=== PATIENT | male | born 1980 | race Hispanic/Latino ===

== ENCOUNTER 2019-01-17 15:14 | Emergency (ER) | payer OTHER, SELFPAY ==
--- OUTSIDE RECORDS SUMMARY | 2019-01-17 15:17 | XMS REPORT ---
:1980 [facility] Address [address] [place] [address] Care Team Providers Name Role Phone Unavailable Unavailable Unavailable Payers Payer Name Policy Type Policy Number Effective Date Expiration Date Problems This patient has no known problems. Allergies, Adverse Reactions, Alerts Allergy Name Allergy Status Severity Reaction(s) Onset Inactive Treating Comments Type Date Date Clinician No Allergy DA Active U 2018-11 Available 00:00:0 0 vancomycin DA Active SV 2018-11 00:00:0 0 Medications This patient has no known medications. Results Test Description Test Time Test Comments Text Results Atomic Results Result Comments GLUBED 2018-12-03 11:29:00 Test Item Value Reference Range Comments GLUBED (test code=GLUBED) 202 mg/dL 70-110 BASIC METABOLIC [id number] 05:36:00 Test Item Value Reference Range Comments SODIUM (test code=NA) 138 mmol/L 136-145 POTASSIUM (test code=K) 3.9 mmol/L 3.5-5.1 CHLORIDE (test code=CL) 105 mmol/L 98-113 CARBON DIOXIDE (test code=CO2) 28 mmol/L 21-32 GLUCOSE (test code=GLU) 208 mg/dL 65-99 BLOOD UREA NITROGEN (test 19 mg/dL 7-18 code=BUN) GLOMERULAR FILTRATION RATE 114 Reporting units: (test code=GFR) ml/min/1.73m\S\2 (Modified MDRD Formula)If age < 18 years, GFR is not applicable. KD/DOQI Clinical Practice Guidelines: Stage 1: Kidney damage w/normal or increased GFR >90Stage 2: Kidney damage w/mild decrease in GFR 60 - 89Stage 3: Moderate decrease in GFR 30 - 59Stage 4: Severe decrease in GFR 15 - 29Stage 5: Kidney failure < 15 (or dialysis) CREATININE (test code=CREAT) 0.8 mg/dL 0.6-1.0 CALCIUM (test code=CA) 8.2 mg/dL 7.8-10.9 [id number] 05:01:00 Test Item Value Reference Range Comments GLUBED (test code=GLUBED) 185 mg/dL 70-110 CBC W/AUTO [id number] 04:37:00 Test Item Value Reference Range Comments WHITE BLOOD CELL (test code=WBC) 3.9 K/mm3 4.8-10.8 RED BLOOD CELL (test code=RBC) 4.66 M/mm3 4.2-5.4 HEMOGLOBIN (test code=HGB) 13.5 gm/DL 13.5-17.5 HEMATOCRIT (test code=HCT) 40.9 % 37.1-51.5 MEAN CELL VOLUME (test code=MCV) 87.8 fL 81-99 MEAN CELL HGB (test code=MCH) 29.0 pg 27-31 MEAN CELL HGB CONCETRATION (test code=MCHC) 33.0 gm/dL 33-37 RED CELL DISTRIBUTION WIDTH (test code=RDW) 13.3 % 11.5-14.5 PLATELET COUNT (test code=PLT) 139 X10(3) 130-400 MEAN PLATELET VOLUME (test code=MPV) 10.9 fL 9.4-12.4 NEUTROPHIL % (test code=NT%) 48.5 % 51.5-79.7 IMMATURE GRANULOCYTE % (test code=IG%) 0.300 % 0.108-0.322 LYMPHOCYTE % (test code=LY%) 31.2 % 14-40 MONOCYTE % (test code=MO%) 16.2 % 4.0-10.2 EOSINOPHIL % (test code=EO%) 3.3 % 0-4.1 BASOPHIL % (test code=BA%) 0.5 % 0.1-0.7 NUCLEATED RBC % (test code=NRBC%) 0 % 0-0 NEUTROPHIL # (test code=NT#) 1.9 K/mm3 2.5-8.6 IMMATURE GRANULOCYTE # (test code=IG#) 0.010 K/mm3 0.0052-0.0224 LYMPHOCYTE # (test code=LY#) 1.2 K/mm3 1.1-3.6 MONOCYTE # (test code=MO#) 0.6 K/mm3 0.3-0.9 EOSINOPHIL # (test code=EO#) 0.13 # 0.0-0.4 BASOPHIL # (test code=BA#) 0.02 K/mm3 0.0-0.2 NUCLEATED RBC # (test code=NRBC#) 0.00 K/mm3 0.00-0.20 [id number] 20:40:00 Test Item Value Reference Range Comments GLUBED (test code=GLUBED) 256 mg/dL 70110 [id number] 17:24:00 Test Item Value Reference Range Comments GLUBED (test code=GLUBED) 244 mg/dL 70110 [id number] 11:31:00 Test Item Value Reference Range Comments GLUBED (test code=GLUBED) 272 mg/dL 70-110 - DUP LE ART [id number] 09:44:00 [place]: [facility] St: ADM Name: [facility] : 1980 Age/S: 37/M [address] Unit #: [id number] Loc: [address] [place], [place] [address] Phys: Keny Duran MD Acct: [id number] Dis Date: Status: ADM IN PHONE #: [phone] Exam Date: 12/02/2018 FAX #: [phone] Reason: diabetic ulcers EXAMS: CPT CODE: [id number] DUP LE ART ARAVIND [id number]: Ulcers TECHNIQUE: Grayscale B-mode, color-flow, and spectral Doppler analysis of the lower extremity arterial vasculature was performed. COMPARISON: None availabletime of interpretation. FINDINGS: Right lower extremity: Triphasic and biphasic waveforms are demonstrated throughout the right lower extremity arterial structures Left lower extremity: Probably triphasic and biphasic waveforms are seen involving the left lowerextremity arterial structures with monophasic waveforms involving the posterior tibial artery however triphasic waveforms are seen involving the distal anterior tibial artery and dorsalis pedis artery. IMPRESSION: 1. Scattered atherosclerotic plaque demonstrated. No area of long segment occlusion or high-grade flow limiting stenosis. at 0944 Reported and signed by: LLOYD OGLESBY M.D. Facility ACR Accreditation for Ultrasound - November 2011 CC: Keny Duran MD; Sunday Mendoza NP Technologist: SANDY CASTRO RDMS Transcribed Date/Time/By: 2018 (0944) : By: [email or web address] Orig Print D/T:S: 12/02/2018 (0944) PAGE 1 Signed ReportCOMPREHENSIVE METABOLIC [id number] 06:17:00 Test Item Value Reference Range Comments SODIUM (test code=NA) 136 mmol/L 136-145 POTASSIUM (test code=K) 4.0 mmol/L 3.5-5.1 CHLORIDE (test code=CL) 102 mmol/L 98-113 CARBON DIOXIDE (test 27 mmol/L 21-32 code=CO2) GLUCOSE (test code=GLU) 196 mg/dL 65-99 BLOOD UREA NITROGEN (test 16 mg/dL 7-18 code=BUN) GLOMERULAR FILTRATION RATE 133 Reporting units: (test code=GFR) ml/min/1.73m\S\2 (Modified MDRD Formula)If age < 18 years, GFR is not applicable. KD/DOQI Clinical Practice Guidelines: Stage 1: Kidney damage w/normal or increased GFR >90Stage 2: Kidney damage w/mild decrease in GFR 60 - 89Stage 3: Moderate decrease in GFR 30 - 59Stage 4: Severe decrease in GFR 15 - 29Stage 5: Kidney failure < 15 (or dialysis) CREATININE (test code=CREAT) 0.7 mg/dL 0.6-1.0 TOTAL PROTEIN (test 7.5 g/dL 6.4-8.2 code=PROT) ALBUMIN (test code=ALB) 3.0 g/dL 3.4-5.0 GLOBULIN (test code=GLOB) 4.5 gm/dL 2.3-3.5 ALBUMIN/GLOBULIN RATIO (test 0.7 1.5-2.2 code=A/G) CALCIUM (test code=CA) 8.0 mg/dL 7.8-10.9 BILIRUBIN TOTAL (test 0.5 mg/dL 0.0-1.1 code=BILT) SGOT/AST (test code=AST) 15 U/L 15-37 Reporting units: International Units/L SGPT/ALT (test code=ALT) 31 U/L 10-30 Reporting units: International Units/L ALKALINE PHOSPHATASE TOTAL 84 U/L 45-117 (test code=ALKP) [id number] 06:17:00 Test Item Value Reference Range Comments MAGNESIUM (test code=MAG) 2.0 mg/dL 1.5-2.1 COMPREHENSIVE METABOLIC [id number] 06:10:00 Test Item Value Reference Range Comments SODIUM (test code=NA) 136 mmol/L 136-145 POTASSIUM (test code=K) 4.0 mmol/L 3.5-5.1 CHLORIDE (test code=CL) 102 mmol/L 98-113 CARBON DIOXIDE (test code=CO2) 27 mmol/L 21-32 GLUCOSE (test code=GLU) mg/dL 65-99 BLOOD UREA NITROGEN (test code=BUN) mg/dL 7-18 GLOMERULAR FILTRATION RATE (test code=GFR) CREATININE (test code=CREAT) mg/dL 0.6-1.0 TOTAL PROTEIN (test code=PROT) g/dL 6.4-8.2 ALBUMIN (test code=ALB) g/dL 3.4-5.0 GLOBULIN (test code=GLOB) gm/dL 2.3-3.5 ALBUMIN/GLOBULIN RATIO (test code=A/G) 1.5-2.2 CALCIUM (test code=CA) 8.0 mg/dL 7.8-10.9 BILIRUBIN TOTAL (test code=BILT) mg/dL 0.0-1.1 SGOT/AST (test code=AST) U/L 15-37 SGPT/ALT (test code=ALT) U/L 10-30 ALKALINE PHOSPHATASE TOTAL (test code=ALKP) U/L 45-117 [id number] 06:10:00 Test Item Value Reference Range Comments MAGNESIUM (test code=MAG) mg/dL 1.5-2.1 - CT CHEST W/O [id number] 05:51:00 [place]: [facility] St: ADM Name: [facility] : 1980 Age/S: 37/M [address] [facility] Unit #: [id number] Loc: [facility] [place], [place] [address] Phys: Keny Duran MD Acct: [id number] Dis Date: Status : ADM IN PHONE #: [phone] Exam Date: 12/01/2018 0534 FAX #: [phone] Reason: PNA CTDI: DLP: Automated exposure control, iterative reconstruction technique, and/oradjustment of mA and /or kV according to patient's size was utilized fooptimum radiation dose reduction. EXAMS: CPT CODE: [id number] CT CHEST W/O CONTRAST 15593 HISTORY: Pneumonia TECHNIQUE: Axial tomograms through the chest were obtained without intravenous contrast. FINDINGS: Evaluation of mediastinal structures is limited without intravenous contrast. There is no significant mediastinal or hilar adenopathy. No significant pleural effusion. The aorta and mediastinal structures show no other significant abnormalities. The visualized lungs are clear.IMPRESSION: 1. No focal consolidation. No other acute abnormalities on this limited noncontrast examination. Electronically Signed by LLOYD OGLESBY M.D. on 2018 at 0551 Reported and signed by: LLOYD OGLESBY M.D. Facility ACR Accreditation for CT - May 2012 CC: Keny Duran MD; Sunday Mendoza NP Technologist: CLAUDIA LUTZ RT(R)(CT) Transcribed Date/Time/By: 12/02/2018 (0551) : By: [email or web address] Orig Print D/T: S: 12/02/2018 (0554) PAGE 1 [facility] W/AUTO [id number] 05:44:00 Test Item Value Reference Range Comments WHITE BLOOD CELL (test code=WBC) 6.2 K/mm3 4.8-10.8 RED BLOOD CELL (test code=RBC) 4.61 M/mm3 4.2-5.4 HEMOGLOBIN (test code=HGB) 13.2 gm/DL 13.5-17.5 HEMATOCRIT (test code=HCT) 40.9 % 37.1-51.5 MEAN CELL VOLUME (test code=MCV) 88.7 fL 81-99 MEAN CELL HGB (test code=MCH) 28.6 pg 27-31 MEAN CELL HGB CONCETRATION (test code=MCHC) 32.3 gm/dL 33-37 RED CELL DISTRIBUTION WIDTH (test code=RDW) 13.3 % 11.5-14.5 PLATELET COUNT (test code=PLT) 144 X10(3) 130-400 MEAN PLATELET VOLUME (test code=MPV) 10.9 fL 9.4-12.4 NEUTROPHIL % (test code=NT%) 77.1 % 51.5-79.7 IMMATURE GRANULOCYTE % (test code=IG%) 0.300 % 0.108-0.322 LYMPHOCYTE % (test code=LY%) 13.3 % 14-40 MONOCYTE % (test code=MO%) 8.5 % 4.0-10.2 EOSINOPHIL % (test code=EO%) 0.6 % 0-4.1 BASOPHIL % (test code=BA%) 0.2 % 0.1-0.7 NUCLEATED RBC % (test code=NRBC%) 0 % 0-0 NEUTROPHIL # (test code=NT#) 4.8 K/mm3 2.5-8.6 IMMATURE GRANULOCYTE # (test code=IG#) 0.020 K/mm3 0.0052-0.0224 LYMPHOCYTE # (test code=LY#) 0.8 K/mm3 1.1-3.6 MONOCYTE # (test code=MO#) 0.5 K/mm3 0.3-0.9 EOSINOPHIL # (test code=EO#) 0.04 # 0.0-0.4 BASOPHIL # (test code=BA#) 0.01 K/mm3 0.0-0.2 NUCLEATED RBC # (test code=NRBC#) 0.00 K/mm3 0.00-0.20 [id number] 05:10:00 Test Item Value Reference Range Comments GLUBED (test code=GLUBED) 201 mg/dL 70-110 - DUP VEIN [id number] 04:37:00 [place]: [facility] St: ADM Name: [facility] : 1980 Age/S: 37/M [address] [facility] Unit #: [id number] Loc: [place] [address] Phys: Keny Duran MD Acct: [id number] Dis Date: Status: ADM IN PHONE #: [phone] Exam Date: 12/02/2018 0238 FAX #: [phone] Reason: BLE SWELLING EXAMS: CPT CODE: [id number] DUP VEIN ARAVIND 73414 HISTORY: Bilateral swelling TECHNIQUE : Grayscale real-time B-mode imaging with color flow and spectral flow Doppler analysis was performed of the lower extremity. FINDINGS: There is normal flow, augmentation, and compressibility involving the deep venous structures bilaterally. Mildly prominent inguinal lymph nodes are noted bilaterally. IMPRESSION: 1. No evidence of DVT. at 0437 Reported and signed by: LLOYD OGLESBY M.D. Facility ACR Accreditation for Ultrasound - November 2011 CC: Keny Duran MD; Sunday Mendoza NP Technologist: SANDY CASTRO RDMS Transcribed Date/Time/By: 12/02/2018 (0437) : By: [email or web address] Orig Print D/T: S: 12/02/2018 (0442) PAGE 1 Signed Report- XR FOOT 2 VIEWS [id number] 00:17:00 FAX: Keny Leonard MD Camps: ER St: ADM FAX: Sunday Mendoza [employer]EL[employer] [phone] Name: SHILA COWART [facility] : 1980 Age/S: 37/M [address]ruff [facility] Unit #: [id number] Loc: [address] [place], [place] [address] Phys: Keny Duran MD Acct: [id number] Dis Date: Status: ADM IN PHONE #: [phone] Exam Date: 12/01/2018 2304 FAX #: [phone] Reason: GREAT TOE ULCER EXAMS: CPT CODE: [id number] XR FOOT [address] [place] [address] LOCATION: V20 EXAM: - XR FOOT 2 VIEWS LT, - XR FOOT 2 VIEWS RT HISTORY: GREAT TOE ULCER TECHNIQUE: Frontal and lateral views of the bilateral foot COMPARISON: None. FINDINGS: No evidence of acute fracture or dislocation. Joint spaces withinnormal limits. Mild dorsal soft tissue swelling is present along the left distal foot in the region of the metatarsals. Arterial vascular calcifications are present bilaterally. Bone marrow mineralization is homogeneous. IMPRESSION: Mild dorsal soft tissue swelling is present along the left distal foot. There is question of associated 11 mm focus of subcutaneous soft tissue gas, correlate for open wound. There is no evidence of an cortical abnormality or focal osteopenia in either foot to indicate acute osteomyelitis. at 0017 Reported and signed by: DONTRELL DSOUZA M.D. CC: Keny Duran MD; Sunday Tinoco Technologist: JAILENE SWANSON RT (R)(ARRT); ... Transcribed Date/Time/By: 12/02 (0017) :[email or web address] Orig Print D/T: S: 12/02/2018 (0021) Automated exposure control, iterative reconstruction technique, and/oradjustment of mA and/or kV according to patient's size was utilizedfor optimum radiation dose reduction. PAGE 1 Signed Report- XR FOOT 2 VIEWS [id number] 00:17:00 FAX: Keny Leonard MD Camps: ER St: ADM FAX: Sunday Mendoza NP [phone] --- Name: SHILA COWART [facility] : 1980 Age/S: 37/M [address] [facility] Unit #: [id number] Loc: [address] [address] Phys: Keny Duran MD Acct: [id number] Dis Date: Status: ADM IN PHONE #: [phone] Exam Date: 12/01/2018 2304 FAX #: [phone] Reason: GREAT TOE ULCER EXAMS: CPT CODE: [id number] XR FOOT [address] [place] [address] LOCATION: V20 EXAM: - XR FOOT 2 VIEWS LT, - XR FOOT 2 VIEWS RT HISTORY: GREAT TOE ULCER TECHNIQUE: Frontal and lateral views of the bilateral foot COMPARISON: None. FINDINGS: No evidence of acute fracture or dislocation. Joint spaces withinnormal limits. Mild dorsal soft tissue swelling is present along the left distal foot in the region of the metatarsals. Arterial vascular calcifications are present bilaterally. Bone marrow mineralization is homogeneous. IMPRESSION: Mild dorsal soft tissue swelling is present along the left distal foot. There is question of associated 11 mm focus of subcutaneous soft tissue gas, correlate for open wound. There is no evidence of an cortical abnormality or focal osteopenia in either foot to indicate acute osteomyelitis. at 0017 Reported and signed by: DONTRELL DSOUZA M.D. CC: Keny Duran MD; Sunday Tinoco Technologist: JAILENE SWANSON RT (R)(ARRT); ... Transcribed Date/Time/By: 12/02 (0017) :[email or web address] Orig Print D/T: S: 12/02/2018 (0021) Automated exposure control, iterative reconstruction technique, and/oradjustment of mA and/or kV according to patient's size was utilizedfor optimum radiation dose reduction. PAGE 1 Signed ReportGLYCOSYLATED HEMOGLOBIN (HA1C)2018-12-01 22:46:00 Test Item Value Reference Range Comments GLYCOSYLATED HEMOGLOBIN (HA1C) (test code=GLYHGB) 9.6 % 4.4-6.4 MEAN BLOOD GLUCOSE [id number] 22:46:00 Test Item Value Reference Range Comments MEAN BLOOD GLUCOSE CALCULATION (test code=MBGCALC) 228.8 URINALYSIS W/O [id number] 21:41:00 Test Item Value Reference Range Comments UA COLOR (test code=COLU) LIGHT YELLOW YELLOW UA APPEARANCE (test code=APPU) CLEAR CLEAR UA GLUCOSE DIPSTICK (test code=DGLUU) >=1000 NEGATIVE UA BILIRUBIN DIPSTICK (test code=BILU) NEGATIVE NEGATIVE UA KETONE DIPSTICK (test code=KETU) NEGATIVE NEGATIVE UA SPECIFIC GRAVITY (test code=SGU) 1.010 1.000-1.030 UA BLOOD DIPSTICK (test code=BITA) NEGATIVE NEGATIVE UA PH DIPSTICK (test code=JULIO) 6.0 5.0-8.5 UA PROTEIN DIPSTICK (test code=PROU) NEGATIVE NEGATIVE UA UROBILINIOGEN DIPSTICK (test code=URO) 0.2 EU/DL <=1.0 EU/DL UA NITRITE DIPSTICK (test code=JAI) NEGATIVE NEGATIVE UA LEUKOCYTE ESTERASE DIPSTICK (test code=LEUU) NEGATIVE NEGATIVE SOURCE: URINESPECIMEN DESCRIPTION: CMCUA [id number] 21:41:00 Test Item Value Reference Range Comments UA WBC (test code=WBCU) 2-5 0-5 UA RBC (test code=RBCU) 0-2 0-5 UA SQUAMOUS CELLS (test code=SQU) 5-10 #/lpf NONE SEEN SOURCE: URINESPECIMEN DESCRIPTION: CMCURINALYSIS W/O [id number] 21:04:00 Test Item Value Reference Range Comments UA COLOR (test code=COLU) LIGHT YELLOW YELLOW UA APPEARANCE (test code=APPU) CLEAR CLEAR UA GLUCOSE DIPSTICK (test code=DGLUU) >=1000 NEGATIVE UA BILIRUBIN DIPSTICK (test code=BILU) NEGATIVE NEGATIVE UA KETONE DIPSTICK (test code=KETU) NEGATIVE NEGATIVE UA SPECIFIC GRAVITY (test code=SGU) 1.010 1.000-1.030 UA BLOOD DIPSTICK (test code=BITA) NEGATIVE NEGATIVE UA PH DIPSTICK (test code=JULIO) 6.0 5.0-8.5 UA PROTEIN DIPSTICK (test code=PROU) NEGATIVE NEGATIVE UA UROBILINIOGEN DIPSTICK (test code=URO) 0.2 EU/DL <=1.0 EU/DL UA NITRITE DIPSTICK (test code=JAI) NEGATIVE NEGATIVE UA LEUKOCYTE ESTERASE DIPSTICK (test code=LEUU) NEGATIVE NEGATIVE SOURCE: URINESPECIMEN DESCRIPTION: [facility] [id number] 21:04:00 Test Item Value Reference Range Comments UA WBC (test code=WBCU) 0-5 UA RBC (test code=RBCU) 0-5 SOURCE: URINESPECIMEN DESCRIPTION: CMCURINALYSIS W/O [id number] 21:04:00 Test Item Value Reference Range Comments UA COLOR (test code=COLU) LIGHT YELLOW YELLOW UA APPEARANCE (test code=APPU) CLEAR CLEAR UA GLUCOSE DIPSTICK (test code=DGLUU) >=1000 NEGATIVE UA BILIRUBIN DIPSTICK (test code=BILU) NEGATIVE NEGATIVE UA KETONE DIPSTICK (test code=KETU) NEGATIVE NEGATIVE UA SPECIFIC GRAVITY (test code=SGU) 1.010 1.000-1.030 UA BLOOD DIPSTICK (test code=BITA) NEGATIVE NEGATIVE UA PH DIPSTICK (test code=JULIO) 6.0 5.0-8.5 UA PROTEIN DIPSTICK (test code=PROU) NEGATIVE NEGATIVE UA UROBILINIOGEN DIPSTICK (test code=URO) 0.2 EU/DL <=1.0 EU/DL UA NITRITE DIPSTICK (test code=JAI) NEGATIVE NEGATIVE UA LEUKOCYTE ESTERASE DIPSTICK (test code=LEUU) NEGATIVE NEGATIVE SOURCE: URINESPECIMEN DESCRIPTION: [facility] [id number] 21:04:00 Test Item Value Reference Range Comments UA WBC (test code=WBCU) 0-5 UA RBC (test code=RBCU) 0-5 SOURCE: URINESPECIMEN DESCRIPTION: CMCPOC LACTIC [id number] 20:50:00 Test Item Value Reference Range Comments POC LACTIC ACID (test code=POCLAC) 1.61 MMOL/L 0.40-2.00 - XR CHEST 1 [id number] 20:42:00 FAX: Xavier Maguire Camps: ER St: REG Name: SUPASHILA [facility] : 1980 Age/S: 37/M [address]ruff [facility] Unit #: [id number] Loc: [place], [place] [address] Phys: Xavier Maguire MD Acct: [id number] Dis Date: Status: REG ER PHONE #: [phone] Exam Date: 12/01/20182039 FAX #: [phone] Reason: code sepsis EXAMS: CPT CODE: [id number] XR CHEST 1 V 17668 LOCATION : V20 EXAM: - XR CHEST 1 V HISTORY: code sepsis TECHNIQUE: Frontal view of the chest. COMPARISON: None. FINDINGS: The lungs are adequately inflated. Asymmetric opacity in the rightlung base may represent atelectasis or developing infiltrate. No evidence of pneumothorax or pleural effusion. Normal heart size. Mediastinal contours are within normal limits. Osseous structures are intact. IMPRESSION: Asymmetric opacity in the right lung base may represent atelectasis or developing infiltrate. ElectronicallySigned by DONTRELL DSOUZA M.D. on 12/01/2018 at 2042 Reported and signed by: ANA MARIA Macedo CC: Xavier Maguire MD Technologist: Keerthi Peraza RT(R)CT(ARRT) Transcribed Date/Time/By: 12/01/2018 (2041) :[email or web address] Orig Print D/T : S: 12/01/2018 (2044) Automated exposure control, iterative reconstruction technique, and/oradjustment of mA and/or kV according to patient's size was utilizedfor optimum radiation dose reduction. PAGE 1 Signed ReportHEPATIC FUNCTION [id number] 19:50:00 Test Item Value Reference Range Comments TOTAL PROTEIN (test 7.9 g/dL 6.4-8.2 code=PROT) ALBUMIN (test code=ALB) 3.2 g/dL 3.4-5.0 GLOBULIN (test code=GLOB) 4.7 gm/dL 2.3-3.5 ALBUMIN/GLOBULIN RATIO (test 0.7 1.5-2.2 code=A/G) BILIRUBIN TOTAL (test 0.3 mg/dL 0.0-1.1 code=BILT) BILIRUBIN DIRECT (test <0.1 mg/dL 0.05-0.3 code=BILD) BILIRUBIN INDIRECT (test 0.2 mg/dL 0.0-0.6 code=BILIND) SGOT/AST (test code=AST) 18 U/L 15-37 Reporting units: International Units/L SGPT/ALT (test code=ALT) 38 U/L 10-30 Reporting units: International Units/L ALKALINE PHOSPHATASE TOTAL 98 U/L 45-117 (test code=ALKP) [id number] 19:50:00 Test Item Value Reference Range Comments LIPASE (test code=LIP) 120 U/L 73-393 Reporting units: International Units/L NT PRO-BRAIN NATRIURETIC [id number] 19:50:00 Test Item Value Reference Range Comments NT PRO-BRAIN NATRIURETIC PEPTI (test code=PROBNP) 18 pg/mL 0-125 [id number] 19:50:00 Test Item Value Reference Range Comments TROPONIN-I (test <0.02 ng/mL 0.00-0.05 <0.05 Normal0.06 - code=TROPI) 0.39 Consistent with circulating Troponin with possible Myocardial injury.>0.40 Consistent with Myocardial injury extensive enough to conform with AMI as defined by WHO. PROCALCITONIN (PCT)2018-12-01 19:50:00 Test Item Value Reference Range Comments PROCALCITONIN (PCT) (test code=PROCAL) 0.05 ng/mL 0.00-0.05 CHEMISTRY 8 [id number] 19:36:00 Test Item Value Reference Range Comments IONIZED CALCIUM (test code=CAIABG) 1.15 mmol/L 1.13-1.32 ISTAT-TCO2 VENOUS (test code=TCO2VP) 24 MMOL/L 24-30 ISTAT-HEMOGLOBIN (test code=HBP) 15.0 G/DL 13.5-17.5 ISTAT-HEMATOCRIT (test code=HCTP) 44 % 44.0-56.0 ISTAT-SODIUM (test code=NAP) 138 MMOL/L 136-145 ISTAT-POTASSIUM (test code=KP) 4.0 MMOL/L 3.5-5.1 ISTAT-CHLORIDE (test code=CLP) 100 MMOL/L 98-107 ISTAT GLUCOSE (test code=GLUP) 342 MG/DL 65-99 ISTAT-BUN (test code=BUNP) 19 MG/DL 7-18 BEDSIDE CREATININE (test code=CREATBED) 0.7 MG/DL 0.6-1.0 HEPATIC FUNCTION [id number] 19:36:00 Test Item Value Reference Range Comments TOTAL PROTEIN (test 7.9 g/dL 6.4-8.2 code=PROT) ALBUMIN (test code=ALB) 3.2 g/dL 3.4-5.0 GLOBULIN (test code=GLOB) 4.7 gm/dL 2.3-3.5 ALBUMIN/GLOBULIN RATIO (test 0.7 1.5-2.2 code=A/G) BILIRUBIN TOTAL (test 0.3 mg/dL 0.0-1.1 code=BILT) BILIRUBIN DIRECT (test <0.1 mg/dL 0.05-0.3 code=BILD) BILIRUBIN INDIRECT (test 0.2 mg/dL 0.0-0.6 code=BILIND) SGOT/AST (test code=AST) 18 U/L 15-37 Reporting units: International Units/L SGPT/ALT (test code=ALT) 38 U/L 10-30 Reporting units: International Units/L ALKALINE PHOSPHATASE TOTAL 98 U/L 45-117 (test code=ALKP) [id number] 19:36:00 Test Item Value Reference Range Comments LIPASE (test code=LIP) 120 U/L 73-393 Reporting units: International Units/L NT PRO-BRAIN NATRIURETIC [id number] 19:36:00 Test Item Value Reference Range Comments NT PRO-BRAIN NATRIURETIC PEPTI (test code=PROBNP) 18 pg/mL 0-125 [id number] 19:36:00 Test Item Value Reference Range Comments TROPONIN-I (test <0.02 ng/mL 0.00-0.05 <0.05 Normal0.06 - code=TROPI) 0.39 Consistent with circulating Troponin with possible Myocardial injury.>0.40 Consistent with Myocardial injury extensive enough to conform with AMI as defined by WHO. PROCALCITONIN (PCT)2018-12-01 19:36:00 Test Item Value Reference Range Comments PROCALCITONIN (PCT) (test code=PROCAL) ng/mL 0.00-0.05 PROTHROMBIN [id number] 19:25:00 Test Item Value Reference Range Comments PROTHROMBIN TIME PATIENT 10.9 SECONDS 9.9-11.6 (test code=PTP) INTERNATIONAL NORMAL 1.06 0.93-1.2 Recommended Therapeutic PT RATIO (test code=INR) Ratios For Oral AnticoagualantTherapy. CONDITION INT'L NORMALIZED PT R--------- Prophylaxis of venous thrombosis 2.0 - 3.0in high risk medical or surgicalpatients, treatment of venousthrombosis, prevention of embolism. Prevention of recurrent embolism, 3.0 - 4.5or treatment of patients with mechanicalprosthetic heart valves. IS THE PATIENT ON ANY ANTICOAGULANTS? NTHROMBOPLASTIN TIME [id number] 19: 25:00 Test Item Value Reference Range Comments THROMBOPLASTIN TIME PARTIAL (test code=PTT) 27.0 SECONDS 23.0-32.0 IS THE PATIENT ON ANY ANTICOAGULANTS? NPOC LACTIC [id number] 19:11:00 Test Item Value Reference Range Comments POC LACTIC ACID (test 2.68 MMOL/L 0.40-2.00 RESULTS CALLED TO [] AT 1911 code=POCLAC) 12/01/18.NMI-MTCRITICAL VALUE READ BACK BY NURSE AND VERIFIED BY TECH? []REFERENCE RANGES FOR: 1) ARTERIAL SAMPLE (0.5-1.6MMOL/L) 2) SPINAL FLUID (0.6-2.2MMOL/L) CBC W/AUTO [id number] 19:08:00 Test Item Value Reference Range Comments WHITE BLOOD CELL (test code=WBC) 8.6 K/mm3 4.8-10.8 RED BLOOD CELL (test code=RBC) 4.82 M/mm3 4.2-5.4 HEMOGLOBIN (test code=HGB) 14.2 gm/DL 13.5-17.5 HEMATOCRIT (test code=HCT) 41.7 % 37.1-51.5 MEAN CELL VOLUME (test code=MCV) 86.5 fL 81-99 MEAN CELL HGB (test code=MCH) 29.5 pg 27-31 MEAN CELL HGB CONCETRATION (test code=MCHC) 34.1 gm/dL 33-37 RED CELL DISTRIBUTION WIDTH (test code=RDW) 13.2 % 11.5-14.5 PLATELET COUNT (test code=PLT) 177 X10(3) 130-400 MEAN PLATELET VOLUME (test code=MPV) 11.0 fL 9.4-12.4 NEUTROPHIL % (test code=NT%) 81.9 % 51.5-79.7 IMMATURE GRANULOCYTE % (test code=IG%) 0.200 % 0.108-0.322 LYMPHOCYTE % (test code=LY%) 11.3 % 14-40 MONOCYTE % (test code=MO%) 5.7 % 4.0-10.2 EOSINOPHIL % (test code=EO%) 0.6 % 0-4.1 BASOPHIL % (test code=BA%) 0.3 % 0.1-0.7 NUCLEATED RBC % (test code=NRBC%) 0 % 0-0 NEUTROPHIL # (test code=NT#) 7.0 K/mm3 2.5-8.6 IMMATURE GRANULOCYTE # (test code=IG#) 0.020 K/mm3 0.0052-0.0224 LYMPHOCYTE # (test code=LY#) 1.0 K/mm3 1.1-3.6 MONOCYTE # (test code=MO#) 0.5 K/mm3 0.3-0.9 EOSINOPHIL # (test code=EO#) 0.05 # 0.0-0.4 BASOPHIL # (test code=BA#) 0.03 K/mm3 0.0-0.2 NUCLEATED RBC # (test code=NRBC#) 0.00 K/mm3 0.00-0.20
[2019-01-17] MEDS ORDERED: DEXAMETHASONE 4 MG TAB ONE (16:05)
--- NOTE | 2019-01-17 16:36 | ER ---
Nurse's Notes [facility] Name: Addy Quintana Jr Age: 38 yrs Sex: Male : 1980 Arrival Date: 01/17/2019 Time: 15:17 Bed 18 Private MD: Lulu Soto Diagnosis: Viral Upper Respiratory Infection Presentation: 01/17 15:20 Presenting complaint: Patient states: sore throat that began yesterday. Fatigue and ss cough that began today. Transition of care: patient was not received from another setting of care. Onset of symptoms was January 16, 2019. Risk Assessment: Do you want to hurt yourself or someone else? Patient reports no desire to harm self or others. Initial Sepsis Screen: Does the patient meet any 2 criteria? No. Patient's initial sepsis screen is negative. Does the patient have a suspected source of infection? No. Patient's initial sepsis screen is negative. Care prior to arrival: None. 15:20 Method Of Arrival: Ambulatory ss 15:20 Acuity: FLORENCIO 3 ss Historical: - Allergies: 15:24 VANCOMYCIN AND DERIVATIVES; ss - PMHx: 15:24 Diabetes - IDDM; Hypertension; neuropathy; ss - PSHx: 15:24 bilateral leg surgery; debridement of decub ulcers to both great toes; ss - Immunization history:: Adult Immunizations unknown. - Social history:: Smoking status: Patient uses tobacco products, denies chronic smoking, but will smoke occasionally. - Ebola Screening: : Patient denies exposure to infectious person Patient denies travel to an Ebola-affected area in the 21 days before illness onset. Screenin:00 Abuse screen: Denies threats or abuse. Nutritional screening: No deficits noted. em Tuberculosis screening: No symptoms or risk factors identified. Fall Risk None identified. Assessment: 16:00 General: Appears in no apparent distress. uncomfortable, Behavior is calm, cooperative, em Reports chills for 12-24 hours, feeling ill for 12-24 hours, Denies fever. Pain: Complains of pain in throat Pain currently is 6 out of 10 on a pain scale. Neuro: Level of Consciousness is awake, alert, obeys commands, Oriented to person, place, time, situation. Cardiovascular: Heart tones S1 S2 present Capillary refill < 3 seconds Patient's skin is warm and dry. Respiratory: Reports cough that is dry, Airway is patent Respiratory effort is even, unlabored, Breath sounds are clear bilaterally. GI: Patient currently denies nausea, vomiting. EENT: Oral mucosa is moist. Throat is reddened has enlarged tonsils bilaterally. Derm: Skin is intact, is healthy with good turgor, Skin is pink, warm \T\ dry. Musculoskeletal: Capillary refill < 3 seconds, Range of motion: intact in all extremities. Vital Signs: 15:24 BP 136 / 71; Pulse 88; Resp 20; Temp 98.1(TE); Pulse Ox 98% on R/A; Weight 163.29 kg; ss Height 5 ft. 6 in. (167.64 cm); Pain 6/10; 16:43 BP 106 / 55; Pulse 73; Resp 18; Pulse Ox 95% on R/A; em 15:24 Body Mass Index 58.10 (163.29 kg, 167.64 cm) ED Course: 15:17 Patient arrived in ED. mr 15:17 Charles Lulu is Private Physician. mr 15:23 Triage completed. ss 15:24 Arm band placed on left wrist. ss 15:26 Isaías Archer MD is Attending Physician. ps1 15:36 Lui De Luna LVN is Primary Nurse. em 16:00 Patient has correct armband on for positive identification. Bed in low position. Call em light in reach. Pulse ox on. NIBP on. 16:35 Lulu Soto is Referral Physician. ps1 16:54 No provider procedures requiring assistance completed. Patient did not have IV access ss during this emergency room visit. Administered Medications: 15:57 Drug: Decadron 10 mg Route: PO; em 16:41 Follow up: Response: No adverse reaction; Marked relief of symptoms em Outcome: 16:36 Discharge ordered by . ps1 16:54 Discharged to home ambulatory. ss 16:54 Condition: good 16:54 Discharge instructions given to patient, family, Instructed on discharge instructions, follow up and referral plans. medication usage, Demonstrated understanding of instructions, follow-up care, medications, Prescriptions given X 3. 16:55 Patient left the ED. Signatures: Merary Preciado mr Lui De Luna LVN SECURITY DEVELOPER em Yael Mcgraw RN RN Isaías Archer MD MD ps1 Corrections: (The following items were deleted from the chart) 15:24 15:20 Acuity: FLORENCIO 4 ss ss
--- NOTE | 2019-01-17 16:36 | EDPHYS ---
Physician Documentation [facility] Name: Addy Quintana Jr Age: 38 yrs Sex: Male : 1980 Arrival Date: 01/17/2019 Time: 15:17 Bed 18 Private MD: Lulu Soto ED Physician Isaías Acrher HPI: 01/17 15:32 This 38 yrs old Male presents to ER via Ambulatory with complaints of Cough, ps1 Sore Throat. 15:32 patient with one day of influenza-like illness. Patient c/o CHEATHAM, sore throat, dry cough, ps1 body aches and fatigue. No remitting factors. Pain worse with coughing. . Historical: - Allergies: 15:24 VANCOMYCIN AND DERIVATIVES; ss - PMHx: 15:24 Diabetes - IDDM; Hypertension; neuropathy; ss - PSHx: 15:24 bilateral leg surgery; debridement of decub ulcers to both great toes; ss - Immunization history:: Adult Immunizations unknown. - Social history:: Smoking status: Patient uses tobacco products, denies chronic smoking, but will smoke occasionally. - Ebola Screening: : Patient denies exposure to infectious person Patient denies travel to an Ebola-affected area in the 21 days before illness onset. ROS: 15:32 Eyes: Negative for injury, pain, redness, and discharge, ENT: Negative for injury, ps1 pain, and discharge, Cardiovascular: Negative for chest pain, palpitations, and edema, Abdomen/GI: Negative for abdominal pain, nausea, vomiting, diarrhea, and constipation, MS/Extremity: Negative for injury and deformity, Skin: Negative for injury, rash, and discoloration, Neuro: Negative for headache, weakness, numbness, tingling, and seizure. 15:32 Constitutional: Positive for body aches, chills, fatigue, fever. 15:32 Respiratory: Positive for cough. Exam: 15:32 Constitutional: This is a well developed, well nourished patient who is awake, alert, ps1 and in no acute distress. Head/Face: Normocephalic, atraumatic. Eyes: Pupils equal round and reactive to light, extra-ocular motions intact. Lids and lashes normal. Conjunctiva and sclera are non-icteric and not injected. Chest/axilla: Normal chest wall appearance and motion. Nontender with no deformity. No lesions are appreciated. Cardiovascular: Regular rate and rhythm. No gallops, murmurs, or rubs. Normal PMI, no JVD. No pulse deficits. Respiratory: Lungs have equal breath sounds bilaterally, clear to auscultation and percussion. No rales, rhonchi or wheezes noted. No increased work of breathing, no retractions or nasal flaring. Abdomen/GI: Soft, non-tender, with normal bowel sounds. No distension or tympany. No guarding or rebound. No evidence of tenderness throughout. MS/ Extremity: Pulses equal, no cyanosis. Neurovascular intact. Full, normal range of motion. Neuro: Awake and alert, GCS 15, oriented to person, place, time, and situation. Cranial nerves II-XII grossly intact. Sensory grossly intact. Vital Signs: 15:24 BP 136 / 71; Pulse 88; Resp 20; Temp 98.1(TE); Pulse Ox 98% on R/A; Weight 163.29 kg; ss Height 5 ft. 6 in. (167.64 cm); Pain 6/10; 16:43 BP 106 / 55; Pulse 73; Resp 18; Pulse Ox 95% on R/A; em 15:24 Body Mass Index 58.10 (163.29 kg, 167.64 cm) ss MDM: 15:29 Patient medically screened. ps1 16:38 Data reviewed: vital signs, nurses notes, lab test result(s), and as a result, I will ps1 discharge patient. Counseling: I had a detailed discussion with the patient and/or guardian regarding: the historical points, exam findings, and any diagnostic results supporting the discharge/admit diagnosis, lab results, the need for outpatient follow up. 01/17 15:27 Order name: Throat Culture ps1 01/17 15:27 Order name: Flu; Complete Time: 16:35 ps1 01/17 15:27 Order name: Strep; Complete Time: 16:35 ps1 Administered Medications: 15:57 Drug: Decadron 10 mg Route: PO; em 16:41 Follow up: Response: No adverse reaction; Marked relief of symptoms em Disposition: 01/17/19 16:36 Discharged to Home. Impression: Viral Upper Respiratory Infection. - Condition is Stable. - Discharge Instructions: Upper Respiratory Infection, Adult. - Prescriptions for Tylenol Cold and Flu Severe - take 1 Fluid Ounce by ORAL route as directed; 2 bottle. Anaprox DS 550 mg Oral Tablet - take 1 tablet by ORAL route every 12 hours As needed; 20 tablet. Tessalon Perles 100 mg Oral Capsule - take 1 capsule by ORAL route every 8 hours As needed; 15 capsule. - Work release form, Medication Reconciliation Form, Thank You Letter, Antibiotic Education, Prescription Opioid Use form. - Follow up: Lulu Soto; When: As needed; Reason: Recheck today's complaints. Follow up: Emergency Department; When: As needed; Reason: Worsening of condition. - Problem is new. - Symptoms are unchanged. Signatures: Dispatcher [employer] EDLui Mohan, NIKO CUNHAN Yael Donnelly RN RN Isaías Rawls MD MD ps1 Corrections: (The following items were deleted from the chart) 16:55 16:36 01/17/2019 16:36 Discharged to Home. Impression: Viral Upper Respiratory ss Infection. Condition is Stable. Forms are Medication Reconciliation Form, Thank You Letter, Antibiotic Education, Prescription Opioid Use. Follow up: Lulu Soto; When: As needed; Reason: Recheck today's complaints. Follow up: Emergency Department; When: As needed; Reason: Worsening of condition. Problem is new. Symptoms are unchanged. ps1
[2019-01-17 17:51] VITALS: TEMP 98.1
[2019-01-17 17:52] VITALS: BP 106/55; O2SAT 95
== END 2019-01-17 16:55 | disposition home or self-care (01) ==
LOC: ER 15:14
DX: J06.9 Acute upper respiratory infection, unspecified (principal); Z72.0 Tobacco use
CPT/HCPCS: 87070; 87081; 87804; 99283

== ENCOUNTER 2019-10-14 19:50 | Inpatient (IN) | payer SELFPAY ==
--- OUTSIDE RECORDS SUMMARY | 2019-10-14 19:53 | XMS REPORT ---
:1980 [facility] Address [address] [place] [address] Care Team Providers Name Role Phone Unavailable [...] (test code=GLUBED) 202 mg/dL 70-110 BASIC METABOLIC [id number] 05:36:00 Test Item Value Reference Range Comments [...] 0.6-1.0 CALCIUM (test code=CA) 8.2 mg/dL 7.8-10.9 [id number] 05:01:00 Test Item Value Reference Range Comments GLUBED (test code=GLUBED) 185 mg/dL 70-110 CBC W/AUTO [id number] 04:37:00 Test Item Value Reference Range Comments [...] RBC # (test code=NRBC#) 0.00 K/mm3 0.00-0.20 [id number] 20:40:00 Test Item Value Reference Range Comments GLUBED (test code=GLUBED) 256 mg/dL 70110 [id number] 17:24:00 Test Item Value Reference Range Comments GLUBED (test code=GLUBED) 244 mg/dL 70110 [id number] 11:31:00 Test Item Value Reference Range Comments GLUBED (test code=GLUBED) 272 mg/dL 70-110 - DUP LE ART [id number] 09:44:00 [place]: [facility] St: ADM Name: [facility] : 1980 Age/S: 37/M [address] [facility] Unit #: [id number] Loc: [address] [place], [place] [address] Phys: Keny Duran MD Acct: [id number] Dis Date: Status: ADM IN PHONE #: [phone] Exam Date: 12/02/2018 FAX #: [phone] Reason: diabetic ulcers EXAMS: CPT CODE: [id number] DUP LE ART ARAVIND [id number]: Ulcers TECHNIQUE: Grayscale B-mode, color-flow, and spectral [...] 12/02/2018 (0944) PAGE 1 Signed ReportCOMPREHENSIVE METABOLIC [id number] 06:17:00 Test Item Value Reference Range Comments [...] PHOSPHATASE TOTAL 84 U/L 45-117 (test code=ALKP) [id number] 06:17:00 Test Item Value Reference Range Comments MAGNESIUM (test code=MAG) 2.0 mg/dL 1.5-2.1 COMPREHENSIVE METABOLIC [id number] 06:10:00 Test Item Value Reference Range Comments [...] ALKALINE PHOSPHATASE TOTAL (test code=ALKP) U/L 45-117 [id number] 06:10:00 Test Item Value Reference Range Comments MAGNESIUM (test code=MAG) mg/dL 1.5-2.1 - CT CHEST W/O [id number] 05:51:00 [place]: [facility] St: ADM Name: [facility] : 1980 Age/S: 37/M [address] [facility] Unit #: [id number] Loc: [facility] [place], [place] [address] Phys: Keny Duran MD Acct: [id number] Dis Date: Status : ADM IN PHONE #: [phone] Exam Date: 12/01/2018 0534 FAX #: [phone] Reason: PNA CTDI: DLP: Automated exposure control, iterative reconstruction technique, and/oradjustment of mA and /or kV according to patient's size was utilized fooptimum radiation dose reduction. EXAMS: CPT CODE: [id number] CT CHEST W/O CONTRAST 96206 HISTORY: Pneumonia TECHNIQUE: Axial tomograms through the [...] D/T: S: 12/02/2018 (0554) PAGE 1 Signed [facility] W/AUTO [id number] 05:44:00 Test Item Value Reference Range Comments [...] RBC # (test code=NRBC#) 0.00 K/mm3 0.00-0.20 [id number] 05:10:00 Test Item Value Reference Range Comments GLUBED (test code=GLUBED) 201 mg/dL 70-110 - DUP VEIN [id number] 04:37:00 [place]: [facility] St: ADM Name: [facility] : 1980 Age/S: 37/M [address] [facility] Unit #: [id number] Loc: [place] [address] Phys: Keny Duran MD Acct: [id number] Dis Date: Status: ADM IN PHONE #: [phone] Exam Date: 12/02/2018 0238 FAX #: [phone] Reason: BLE SWELLING EXAMS: CPT CODE: [id number] DUP VEIN ARAVIND 507[address] HISTORY: Bilateral swelling TECHNIQUE : Grayscale real-time [...] By: [email or web address] Orig Print D/T: S: 12/02/2018 (0445) PAGE 1 Signed Report- XR FOOT 2 VIEWS [id number] 00:17:00 FAX: Keny Leonard MD Camps: ER St: ADM FAX: Sunday Mendoza [employer] [phone] Name: [facility] : 1980 Age/S: 37/M [address] [facility] Unit #: [id number] Loc: [address] [place], [place] [address] Phys: Keny Duran MD Acct: [id number] Dis Date: Status: ADM IN PHONE #: [phone] Exam Date: 12/01/2018 2304 FAX #: [phone] Reason: GREAT TOE ULCER EXAMS: CPT CODE: [id number] XR FOOT [address] [place] [address] LOCATION: V20 EXAM: - XR FOOT 2 [...] 1 Signed Report- XR FOOT 2 VIEWS [id number] 00:17:00 FAX: Keny Leonard MD Camps: ER St: ADM FAX: Sunday Mendoza NP [phone] --- Name: [facility] : 1980 Age/S: 37/M [address] [facility] Unit #: [id number] Loc: [address] [address] Phys: Keny Duran MD Acct: [id number] Dis Date: Status: ADM IN PHONE #: [phone] Exam Date: 12/01/2018 2304 FAX #: [phone] Reason: GREAT TOE ULCER EXAMS: CPT CODE: [id number] XR FOOT [address] [place] [address] LOCATION: V20 EXAM: - XR FOOT 2 [...] code=GLYHGB) 9.6 % 4.4-6.4 MEAN BLOOD GLUCOSE [id number] 22:46:00 Test Item Value Reference Range Comments MEAN BLOOD GLUCOSE CALCULATION (test code=MBGCALC) 228.8 URINALYSIS W/O [id number] 21:41:00 Test Item Value Reference Range Comments [...] code=LEUU) NEGATIVE NEGATIVE SOURCE: URINESPECIMEN DESCRIPTION: [facility] [id number] 21:41:00 Test Item Value Reference Range Comments UA WBC (test code=WBCU) 2-5 0-5 UA RBC (test code=RBCU) 0-2 0-5 UA SQUAMOUS CELLS (test code=SQU) 5-10 #/lpf NONE SEEN SOURCE: URINESPECIMEN DESCRIPTION: CMCURINALYSIS W/O [id number] 21:04:00 Test Item Value Reference Range Comments [...] (test code=LEUU) NEGATIVE NEGATIVE SOURCE: URINESPECIMEN DESCRIPTION: [facility] [id number] 21:04:00 Test Item Value Reference Range Comments UA WBC (test code=WBCU) 0-5 UA RBC (test code=RBCU) 0-5 SOURCE: URINESPECIMEN DESCRIPTION: CMCURINALYSIS W/O [id number] 21:04:00 Test Item Value Reference Range Comments [...] (test code=LEUU) NEGATIVE NEGATIVE SOURCE: URINESPECIMEN DESCRIPTION: [facility] [id number] 21:04:00 Test Item Value Reference Range Comments UA WBC (test code=WBCU) 0-5 UA RBC (test code=RBCU) 0-5 SOURCE: URINESPECIMEN DESCRIPTION: CMCPOC LACTIC [id number] 20:50:00 Test Item Value Reference Range Comments POC LACTIC ACID (test code=POCLAC) 1.61 MMOL/L 0.40-2.00 - XR CHEST 1 [id number] 20:42:00 FAX: Xavier Maguire [phone] Camps: ER St: REG [facility] : 1980 Age/S: 37/M [address] [facility] Unit #: [id number] Loc: [place], [place] [address] Phys: Xavier Maguire MD Acct: [id number] Dis Date: Status: REG ER PHONE #: [phone] Exam Date: 12/01/20182039 FAX #: [phone] Reason: code sepsis EXAMS: CPT CODE: [id number] XR CHEST 1 V [address] LOCATION : V20 EXAM: - XR CHEST [...] at 2042 Reported and signed by: ANA MRAIA Macedo CC: Xavier Maguire MD Technologist: Keerthi Peraza RT(R)CT(ARRT) Transcribed Date/Time/By: 12/01/2018 (2041) :[email or web address] Orig Print D/T : S: 12/01/2018 (2044) Automated exposure control, iterative reconstruction technique, and/oradjustment of mA and/or kV according to patient's size was utilizedfor optimum radiation dose reduction. PAGE 1 Signed ReportHEPATIC FUNCTION [id number] 19:50:00 Test Item Value Reference Range Comments [...] PHOSPHATASE TOTAL 98 U/L 45-117 (test code=ALKP) [id number] 19:50:00 Test Item Value Reference Range Comments LIPASE (test code=LIP) 120 U/L 73-393 Reporting units: International Units/L NT PRO-BRAIN NATRIURETIC [id number] 19:50:00 Test Item Value Reference Range Comments NT PRO-BRAIN NATRIURETIC PEPTI (test code=PROBNP) 18 pg/mL 0-125 [id number] 19:50:00 Test Item Value Reference Range Comments TROPONIN-I (test <0.02 ng/mL 0.00-0.05 <0.05 Normal0.06 - code=TROPI) 0.39 Consistent with circulating Troponin with possible Myocardial injury.>0.40 Consistent with Myocardial injury extensive enough to conform with AMI as defined by WHO. PROCALCITONIN (PCT)2018-12-01 19:50:00 Test Item Value Reference Range Comments PROCALCITONIN (PCT) (test code=PROCAL) 0.05 ng/mL 0.00-0.05 CHEMISTRY 8 [id number] 19:36:00 Test Item Value Reference Range Comments [...] (test code=CREATBED) 0.7 MG/DL 0.6-1.0 HEPATIC FUNCTION [id number] 19:36:00 Test Item Value Reference Range Comments [...] PHOSPHATASE TOTAL 98 U/L 45-117 (test code=ALKP) [id number] 19:36:00 Test Item Value Reference Range Comments LIPASE (test code=LIP) 120 U/L 73-393 Reporting units: International Units/L NT PRO-BRAIN NATRIURETIC [id number] 19:36:00 Test Item Value Reference Range Comments NT PRO-BRAIN NATRIURETIC PEPTI (test code=PROBNP) 18 pg/mL 0-125 [id number] 19:36:00 Test Item Value Reference Range Comments TROPONIN-I (test <0.02 ng/mL 0.00-0.05 <0.05 Normal0.06 - code=TROPI) 0.39 Consistent with circulating Troponin with possible Myocardial injury.>0.40 Consistent with Myocardial injury extensive enough to conform with AMI as defined by WHO. PROCALCITONIN (PCT)2018-12-01 19:36:00 Test Item Value Reference Range Comments PROCALCITONIN (PCT) (test code=PROCAL) ng/mL 0.00-0.05 PROTHROMBIN [id number] 19:25:00 Test Item Value Reference Range Comments [...] THE PATIENT ON ANY ANTICOAGULANTS? NTHROMBOPLASTIN TIME [id number] 19: 25:00 Test Item Value Reference Range Comments THROMBOPLASTIN TIME PARTIAL (test code=PTT) 27.0 SECONDS 23.0-32.0 IS THE PATIENT ON ANY ANTICOAGULANTS? NPOC LACTIC [id number] 19:11:00 Test Item Value Reference Range Comments POC LACTIC ACID (test 2.68 MMOL/L 0.40-2.00 RESULTS CALLED TO [] AT 1911 code=POCLAC) 12/01/18.NMI-MTCRITICAL VALUE READ BACK BY NURSE AND VERIFIED BY TECH? []REFERENCE RANGES FOR: 1) ARTERIAL SAMPLE (0.5-1.6MMOL/L) 2) SPINAL FLUID (0.6-2.2MMOL/L) CBC W/AUTO [id number] 19:08:00 Test Item Value Reference Range Comments [...]
--- NOTE | 2019-10-14 20:45 | RAD REPORT ---
EXAM DESCRIPTION: RAD - Foot Left 3 View - 10/14/2019 8:36 pm CLINICAL HISTORY: Left foot pain FINDINGS: Portions of the distal aspect of the first proximal phalanx are destroyed. Pathologic fracture is pre sent. Erosion involves the base of the first distal phalanx. No dislocation IMPRESSION: Osteomyelitis first proximal and first distal phalanx. Pathologic fracture first proximal phalanx
[2019-10-14] MEDS ORDERED: ONDANSETRON 4 MG/2 ML VIAL ONE (20:57)
[2019-10-14] MEDS ORDERED: MORPHINE 4 MG/ML SYR ONE (20:57)
[2019-10-14 21:03] LABS: Absolute Lymphocytes (CBC) 2.3 K/uL (0.7-4.9); Basophils % 0.6 % (0-1.3); Hematocrit 39.2 % (39.6-49.0); Lymphocytes % 25.6 % (15.3-44.8); RBC Red Blood Cell Count 4.52 M/uL (4.33-5.43)
[2019-10-14 21:23] LABS: ALT/SGPT 27 U/L (12-78); AST/SGOT 13 U/L (15-37); Albumin 3.1 g/dL (3.4-5.0); Alkaline Phosphatase 87 U/L (45-117); BUN Blood Urea Nitrogen 19 mg/dL (7-18); Bicarbonate 29 mmol/L (21-32); Bilirubin Total 0.4 mg/dL (0.2-1.0); Glucose Level 204 mg/dL (74-106); Potassium 3.8 mmol/L (3.5-5.1); Protein, Total 7.7 g/dL (6.4-8.2); Sodium Level 138 mmol/L (136-145)
[2019-10-14] MEDS ORDERED: ACETAMINOPHEN 500 MG TAB PO PRN (21:34)
[2019-10-14] MEDS ORDERED: ONDANSETRON 4 MG/2 ML VIAL IV PRN (21:34)
--- NOTE | 2019-10-14 21:51 | EDPHYS ---
Physician Documentation [facility] Name: Addy Quintana Jr Age: 38 yrs Sex: Male : 1980 Arrival Date: 10/14/2019 Time: 19:57 Bed 26 Private MD: ED Physician Pelon Ram HPI: 10/14 20:15 This 38 yrs old Male presents to ER via Wheelchair with complaints of Foot jmm Pain. 20:15 The complaints affect the dorsum of left foot. Onset: The symptoms/episode jmm began/occurred gradually, 3 day(s) ago. Modifying factors: The symptoms are alleviated by nothing. the symptoms are aggravated by nothing. Associated signs and symptoms: Pertinent positives: swelling, warmth. This is a 38 year old male with a history of htn, DM that presents to the ED with complaints of pain to his left great toe beginning approx 3 days ago. Denies fever or chills. Finished a course of clindamycin 2 week prior. Patient states he has had ulcers to both great toes since 2011. . Historical: - Allergies: 20:04 VANCOMYCIN AND DERIVATIVES; aj1 - Home Meds: 20:04 metformin 1,000 mg Oral tab 1 tab 2 times per day [Active]; gabapentin 600 mg oral tab aj1 3 times per day [Active]; - PMHx: 20:04 Diabetes - IDDM; Hypertension; neuropathy; aj1 - Immunization history:: Flu vaccine is not up to date. - Social history:: Smoking status: Patient uses tobacco products, denies chronic smoking, but will smoke occasionally. - Ebola Screening: : Patient denies travel to an Ebola-affected area in the 21 days before illness onset. ROS: 20:15 Constitutional: Negative for fever, chills, and weight loss, Cardiovascular: Negative jmm for chest pain, palpitations, and edema, Respiratory: Negative for shortness of breath, cough, wheezing, and pleuritic chest pain. 20:15 MS/extremity: Positive for erythema, pain. 20:15 Skin: Positive for erythema. 20:15 All other systems are negative. Exam: 20:15 Constitutional: This is a well developed, well nourished patient who is awake, alert, jmm and in no acute distress. Head/Face: atraumatic. Eyes: EOMI, no conjunctival erythema appreciated ENT: Moist Mucus Membranes Neck: Trachea midline, Supple Chest/axilla: Normal chest wall appearance and motion. Cardiovascular: Regular rate and rhythm. No edema appreciated Respiratory: Normal respirations, no respiratory distress appreciated Abdomen/GI: Non distended, soft Back: Normal ROM 20:15 Musculoskeletal/extremity: erythema and swelling is appreciated to the left great toe, < 2 sec dist cap refill, NVI. 20:15 Skin: ulcer noted to the plantar surface of the left great toe, no exudate is appreciated, erythematous, ttp. 20:15 Neuro: Orientation: is normal, Mentation: is normal, Memory: is normal. 20:15 Psych: Behavior/mood is pleasant, cooperative. Vital Signs: 20:04 BP 146 / 57; Pulse 90; Resp 20; Temp 98.3; Pulse Ox 95% on R/A; Weight 154.22 kg (R); aj1 Height 5 ft. 7 in. (170.18 cm) (R); Pain 9/10; 20:10 BP 114 / 60; Pulse 90; Resp 18; Temp 99.1; Pulse Ox 96% on R/A; Pain 9/10; jv1 21:04 BP 115 / 59; Pulse 90; Resp 18; Temp 99.0; Pulse Ox 96% ; Pain 9/10; jv1 22:00 BP 110 / 60; Pulse 89; Resp 18; Temp 99; Pulse Ox 98% on R/A; Pain 4/10; jv1 23:00 BP 103 / 59; Pulse 88; Resp 18; Temp 99.1; Pulse Ox 97% on R/A; Pain 2/10; jv1 09 00:06 BP 104 / 60; Pulse 89; Resp 18; Temp 99.0; Pulse Ox 97% on R/A; Pain 2/10; jv1 00:39 Resp 18; Pulse Ox 97% on R/A; jv1 10/14 20:04 Body Mass Index 53.25 (154.22 kg, 170.18 cm) aj MDM: 10/14 20:15 Patient medically screened. isra 21:48 Data reviewed: vital signs, nurses notes. Counseling: I had a detailed discussion with isra the patient and/or guardian regarding: the historical points, exam findings, and any diagnostic results supporting the discharge/admit diagnosis, lab results, the need for further work-up and treatment in the hospital. ED course: I discussed the patient with Dr. Best whom accepted admission. . 10/14 20:16 Order name: CBC with Diff; Complete Time: 21:05 [facility] 10/14 20:16 Order name: CMP; Complete Time: 21:30 [facility] 10/14 20:16 Order name: Procalcitonin; Complete Time: 21:51 [facility] 10/14 20:16 Order name: Lactate; Complete Time: 21:30 [facility] 10/14 20:20 Order name: Blood Culture Adult (2) [facility] 10/14 21:21 Order name: Wound Culture [facility] 10/14 20:16 Order name: Foot Left 3 View XRAY; Complete Time: 20:49 [facility] 10/14 21:38 Order name: Basic Metabolic Panel [facility] 10/14 21:38 Order name: Basic Metabolic Panel [facility] 10/14 21:38 Order name: CBC with Automated Diff [facility] 10/14 21:38 Order name: CBC with Automated Diff [facility] 10/14 20:16 Order name: Saline Lock; Complete Time: 20:47 [facility] 10/14 21:38 Order name: CONS Physician Consult [facility] 10/14 21:38 Order name: Consistent Carb (ADA) 1800 Edy EDMS Administered Medications: 21:00 Drug: Zofran 4 mg Route: IVP; Infused Over: 2 mins; Site: right wrist; jv1 10/15 00:39 Follow up: Response: No adverse reaction v1 10/14 21:01 Drug: morphine 4 mg Route: IVP; Site: right wrist; jv1 10/15 00:39 Follow up: Resp 18 bpm; Pulse Ox 97% RA; Response: No adverse reaction; Pain is jv1 decreased 10/14 22:05 Drug: Flagyl 500 mg Volume: 100 ml; Route: IVPB; Rate: 200 ml/hr; Infused Over: 30 jv1 mins; Site: right wrist; 10/15 00:15 Follow up: Response: No adverse reaction; IV Status: Completed infusion jv1 10/14 22:45 Drug: LevaQUIN 750 mg Volume: 150 ml; Route: IVPB; Infused Over: 90 mins; Site: right jv1 wrist; 10/15 00:16 Follow up: Response: No adverse reaction; IV Status: Completed infusion jv1 Disposition: :13 Co-signature as Attending Physician, Pelon Ram MD. rn Disposition: 10/14/19 21:50 Hospitalization ordered by Yrn Best for Observation. Preliminary diagnosis are Osteomyelitis, Failed Outpatient Therapy. - Bed requested for Telemetry/MedSurg (observation). - Status is Observation. jv1 - Condition is Stable. - Problem is an acute exacerbation. - Symptoms are unchanged. UTI on Admission? No Signatures: Dispatcher [employer] EDDebbie Koch RN RN aj1 Clifton Moreno PA PA Pelon Guillen MD MD rn Aguilar, Jose, RN RN ja1 Catrachita Husain RN RN jv1 Corrections: (The following items were deleted from the chart) 10/14 21:50 21:49 10/14/2019 21:49 Discharged to Home. Impression: Osteomyelitis; Failed Outpatient jmm Therapy. Condition is Stable. Forms are Medication Reconciliation Form, Thank You Letter, Antibiotic Education, Prescription Opioid Use. Follow up: Yrn Best; When: 2 - 3 days; Reason: Recheck today's complaints, Continuance of care, Re-evaluation by your physician. [facility] 22:15 21:50 Hospitalization Ordered by Yrn Best MD for Observation. Preliminary diagnosis ja1 is Osteomyelitis; Failed Outpatient Therapy. Bed requested for Telemetry/MedSurg (observation). Status is Observation. Condition is Stable. Problem is an acute exacerbation. Symptoms are unchanged. UTI on Admission? No. [facility] 10/15 00:47 10/14 22:15 10/14/2019 21:50 Hospitalization Ordered by Yrn Best MD for jv1 Observation. Preliminary diagnosis is Osteomyelitis; Failed Outpatient Therapy. Bed requested for Telemetry/MedSurg (observation). Status is Observation. Condition is Stable. Problem is an acute exacerbation. Symptoms are unchanged. UTI on Admission? No. ja1
--- NOTE | 2019-10-14 21:51 | ER ---
Nurse's Notes [facility] Name: Addy Quintana Jr Age: 38 yrs Sex: Male : 1980 Arrival Date: 10/14/2019 Time: 19:57 Bed 26 Private MD: Diagnosis: Osteomyelitis;Failed Outpatient Therapy Presentation: 10/14 20:00 Presenting complaint: Patient states: "I got this diabetic ulcer on my left foot and I aj1 guess it got infected because its been hurting real bad. I took my work boot off and my foot was really swollen." Reports pain to left foot. Reports bloody drainage from wound. Transition of care: patient was not received from another setting of care. Onset of symptoms was 2019. Risk Assessment: Do you want to hurt yourself or someone else? Patient reports no desire to harm self or others. Initial Sepsis Screen: Does the patient meet any 2 criteria? No. Patient's initial sepsis screen is negative. Does the patient have a suspected source of infection? Yes: Skin breakdown/wound. Care prior to arrival: None. 20:00 Method Of Arrival: Wheelchair aj1 20:00 Acuity: FLORENCIO 3 aj1 Triage Assessment: 20:04 General: Appears in no apparent distress. uncomfortable, Behavior is calm, cooperative, aj1 appropriate for age. Pain: Pain currently is 9 out of 10 on a pain scale. Neuro: Level of Consciousness is awake, alert, obeys commands, Oriented to person, place, time, situation. Cardiovascular: Patient's skin is warm and dry. Respiratory: Airway is patent Respiratory effort is even, unlabored, Respiratory pattern is regular, symmetrical. Historical: - Allergies: 20:04 VANCOMYCIN AND DERIVATIVES; aj1 - Home Meds: 20:04 metformin 1,000 mg Oral tab 1 tab 2 times per day [Active]; gabapentin 600 mg oral tab aj1 3 times per day [Active]; - PMHx: 20:04 Diabetes - IDDM; Hypertension; neuropathy; aj1 - Immunization history:: Flu vaccine is not up to date. - Social history:: Smoking status: Patient uses tobacco products, denies chronic smoking, but will smoke occasionally. - Ebola Screening: : Patient denies travel to an Ebola-affected area in the 21 days before illness onset. Screenin:30 Abuse screen: Denies threats or abuse. Nutritional screening: No deficits noted. jv1 Tuberculosis screening: No symptoms or risk factors identified. Fall Risk None identified. No fall in past 12 months (0 pts). Assessment: 20:30 General: Appears distressed, uncomfortable, obese, well groomed. Pain: Complains of jv1 pain in left foot Pain does not radiate. Pain currently is 9 out of 10 on a pain scale. Quality of pain is described as aching, Pain began 1 day ago. Aggravated by weight bearing. Neuro: Level of Consciousness is awake, alert, obeys commands, Oriented to person, place, time, situation, Ticket Taker are equal bilaterally Moves all extremities. Cardiovascular: Denies chest pain, Heart tones S1 S2 present Capillary refill < 3 seconds is brisk Pulses are all present. Respiratory: Airway is patent Breath sounds are clear bilaterally. GI: Abdomen is round obese, Bowel sounds present X 4 quads. Abd is soft and non tender X 4 quads. : No signs and/or symptoms were reported regarding the genitourinary system. EENT: No signs and/or symptoms were reported regarding the EENT system. Derm: Decubitus located on left foot, under the big toe approximately 1.5 cm to 2.5 cm is Reports patient states that he has had this diabetic foot since 2012. Musculoskeletal: Circulation, motion, and sensation intact. Capillary refill < 3 seconds. 21:30 Reassessment: Patient appears in no apparent distress at this time. No changes from jv1 previously documented assessment. Patient and/or family updated on plan of care and expected duration. Pain level reassessed. Patient is alert, oriented x 3, equal unlabored respirations, skin warm/dry/pink. Patient states feeling better. 22:30 Reassessment: Patient appears in no apparent distress at this time. No changes from jv1 previously documented assessment. Patient and/or family updated on plan of care and expected duration. Pain level reassessed. Patient is alert, oriented x 3, equal unlabored respirations, skin warm/dry/pink. Patient denies pain at this time. Patient states feeling better. wound care done. cleansed the wound with normal saline, and did wet to dry dressing. pt tolerated the wound care.. 23:30 Reassessment: Patient appears in no apparent distress at this time. No changes from jv1 previously documented assessment. Patient and/or family updated on plan of care and expected duration. Pain level reassessed. Patient is alert, oriented x 3, equal unlabored respirations, skin warm/dry/pink. Patient denies pain at this time. 10/15 00:03 Reassessment: called report to Estrellita Feliz RN. j Vital Signs: 10/14 20:04 BP 146 / 57; Pulse 90; Resp 20; Temp 98.3; Pulse Ox 95% on R/A; Weight 154.22 kg (R); aj1 Height 5 ft. 7 in. (170.18 cm) (R); Pain 9/10; 20:10 BP 114 / 60; Pulse 90; Resp 18; Temp 99.1; Pulse Ox 96% on R/A; Pain 9/10; jv1 21:04 BP 115 / 59; Pulse 90; Resp 18; Temp 99.0; Pulse Ox 96% ; Pain 9/10; jv1 22:00 BP 110 / 60; Pulse 89; Resp 18; Temp 99; Pulse Ox 98% on R/A; Pain 4/10; jv1 23:00 BP 103 / 59; Pulse 88; Resp 18; Temp 99.1; Pulse Ox 97% on R/A; Pain 2/10; jv1 10/15 00:06 BP 104 / 60; Pulse 89; Resp 18; Temp 99.0; Pulse Ox 97% on R/A; Pain 2/10; jv1 00:39 Resp 18; Pulse Ox 97% on R/A; jv1 10/14 20:04 Body Mass Index 53.25 (154.22 kg, 170.18 cm) aj1 ED Course: 10/14 19:57 Patient arrived in ED. cf2 20:00 Clifton Moreno PA is PHCP. jmm 20:00 Pelon Ram MD is Attending Physician. jm 20:03 Triage completed. aj1 20:04 Arm band placed on Patient placed in an exam room. aj1 20:30 Patient has correct armband on for positive identification. Bed in low position. Call j light in reach. 20:31 Foot Left 3 View XRAY In Process Unspecified. EDMS 20:40 Initial lab(s) drawn, by me, sent to lab. First set of blood cultures drawn by me. lt1 20:46 Inserted saline lock: 22 gauge in right wrist, using aseptic technique. lt1 20:57 Second set of blood cultures drawn by al. lt1 21:49 Yrn Best MD is Referral Physician. [facility] 21:50 Yrn Best MD is Hospitalizing Provider. [facility] 10/15 00:03 No provider procedures requiring assistance completed. IV is patent, is intact, with jv1 good blood return, Patient admitted, IV remains in place. intact. 00:16 Wound Culture Sent. jv1 Administered Medications: 10/14 21:00 Drug: Zofran 4 mg Route: IVP; Infused Over: 2 mins; Site: right wrist; jv1 10/15 00:39 Follow up: Response: No adverse reaction jv1 10/14 21:01 Drug: morphine 4 mg Route: IVP; Site: right wrist; jv1 10/15 00:39 Follow up: Resp 18 bpm; Pulse Ox 97% RA; Response: No adverse reaction; Pain is jv1 decreased 10/14 22:05 Drug: Flagyl 500 mg Volume: 100 ml; Route: IVPB; Rate: 200 ml/hr; Infused Over: 30 jv1 mins; Site: right wrist; 10/15 00:15 Follow up: Response: No adverse reaction; IV Status: Completed infusion jv1 10/14 22:45 Drug: LevaQUIN 750 mg Volume: 150 ml; Route: IVPB; Infused Over: 90 mins; Site: right jv1 wrist; 10/15 00:16 Follow up: Response: No adverse reaction; IV Status: Completed infusion jv1 Outcome: 10/14 21:49 Discharge ordered by . [facility] 21:50 Decision to Hospitalize by Provider. [facility] 10/15 00:04 Admitted to Med/surg via wheelchair, room 424, Report called to Estrellita Feliz RN jv1 Instructed on the need for admit. 00:06 Condition: improved jv1 00:47 Patient left the ED. jv1 Signatures: Dispatcher [employer] EDDebbie Koch, RN RN [email or web address] Clifton Moreno PA PA Catrachita Livingston RN RN jv1 Keyonna Flores lt1 Dipika Tellez cf2 Corrections: (The following items were deleted from the chart) 00:00 10/14 21:30 Reassessment: Patient appears in no apparent distress at this time. No jv1 changes from previously documented assessment. Patient and/or family updated on plan of care and expected duration. Pain level reassessed. Patient is alert, oriented x 3, equal unlabored respirations, skin warm/dry/pink. Patient is alert/active/playful, equal unlabored respirations, skin warm/dry/pink. Patient states feeling better. jv1 10/15 01:09 10/14 20:30 Derm: Decubitus located on left foot, under the big toe approximately 1.5 jv1 cm to 2.5 cm is stage IV Reports patient states that he has had this diabetic foot since 2011 jv1
[2019-10-14] MEDS: Levofloxacin 750mg IV 750 MG/150 ML BAG IV SCH (22:00)
[2019-10-14] MEDS: NA CHLORIDE 0.9% 1,000 ML IV SCH (22:00)
[2019-10-14] MEDS ORDERED: METRONIDAZOLE 500mg IVPB 500 MG/100 ML BAG IV ONE (22:02)
[2019-10-15] MEDS ORDERED: MORPHINE 4 MG/ML SYR ONE ×2 (00:32→19:47)
[2019-10-15] MEDS: MORPHINE 4 MG/ML SYR IV PRN ×5 (00:35→20:49)
[2019-10-15 01:32] VITALS: BMI 53.8
[2019-10-15] MEDS ORDERED: D50W 25 GM/50 ML SYRINGE/VIAL IV PRN (04:31)
[2019-10-15] MEDS ORDERED: GLUCAGON 1 MG/VIAL IM PRN (04:31)
[2019-10-15 04:34] LABS: Absolute Lymphocytes (CBC) 2.1 K/uL (0.7-4.9); Basophils % 0.4 % (0-1.3); Hematocrit 35.8 % (39.6-49.0); Lymphocytes % 32.1 % (15.3-44.8); MPV 9.3 fL (7.6-11.3); RBC Red Blood Cell Count 4.17 M/uL (4.33-5.43)
[2019-10-15 05:06] LABS: BUN Blood Urea Nitrogen 20 mg/dL (7-18); Bicarbonate 29 mmol/L (21-32); Glucose Level 185 mg/dL (74-106); Potassium 3.5 mmol/L (3.5-5.1); Sodium Level 139 mmol/L (136-145)
[2019-10-15] MEDS: METRONIDAZOLE 500mg IVPB 500 MG/100 ML BAG IV SCH ×5 (05:07→20:49)
[2019-10-15 05:10] LABS: Urine Appearance CLEAR; Urine Bilirubin NEGATIVE (NEG); Urine Blood NEGATIVE (NEG); Urine Color YELLOW; Urine Glucose TRACE (NEG); Urine Protein TRACE (NEG); Urine Specific Gravity >=1.030 (1.005-1.030); Urine Urobilinogen 0.2 mg/dL (0.2-1.0); Urine pH 5.5 (5.0-7.0)
[2019-10-15 05:34] LABS: Urine Microscopic Reflex ORDER UMIC
[2019-10-15 05:49] LABS: Urine Bacteria <20 /HPF (NONE SEEN); Urine Mucus 1+ /HPF (NONE SEEN); Urine RBC <5 /HPF (NONE SEEN); Urine Urothelial Cells <5 /HPF (NONE SEEN)
[2019-10-15 05:50] LABS: Urine Culture Reflex Order NOT NEEDED
[2019-10-15] MEDS: NA CHLORIDE 0.9% 1,000 ML IV SCH ×3 (08:00→18:00)
[2019-10-15] MEDS ORDERED: PNEUMOCOCCAL VACCINE 0.5 ML IMVAC ONE (08:00)
[2019-10-15] MEDS ORDERED: INFLUENZA VACCINE (for 3y+) 0.5 ML DOSE IMVAC ONE (08:00)
[2019-10-15] MEDS: INSULIN -REGULAR HUMAN 50 UNIT/0.5 ML ML SQ SCH ×4 (09:02→20:51)
--- NOTE | 2019-10-15 09:46 | P.HP ---
Certification for Inpatient Patient admitted to: Inpatient With expected LOS: >2 Midnights Practitioner: I am a practitioner with admitting privileges, knowledge of patient current condition, hospital course, and medical plan of care. Services: Services provided to patient in accordance with Admission requirements found in Title 42 Section 412.3 of the Code of Federal Regulations Patient History Date of Service: 10/15/19 Primary Care Provider: Nasir Reason for admission: diabetic foot History of Present Illness: Patient is a diabetic with chronic foot ulcers. I have seen him previously in the wound care clinic. The last time was this past April. He was improving and the patient decided to stop coming. Partly due to his being uninsured and financial burden of health care. He has a history of diabetes. The patient last a1c was 9.2 in February of last year. He has been having pain for the last 2 days. Looked at his left 1st toe and noticed swelling and pain. This prompted him to come to the ER. His wound has not resolved for the last 6 months. Thought he denies any injuries, he has an open wound and uncontrolled diabetes. In the ER he did not have a high WBC. However the xray showed possible osteomyelitis. The patient has had similar imaging in the past. So this may be some chronic inflammation. However it was prudent to admit for cultures and IV antibiotics. Allergies vancomycin Allergy (Severe, Verified 11/25/14 14:53) Hives/Rash Home Medications: Gabapentin [Neurontin] 600 mg PO BID 02/10/15 Buspirone HCl [Buspar] 10 mg PO TID 02/09/19 Ibuprofen [Ibu] 600 mg PO Q6HP PRN 02/09/19 Metformin HCl [Glucophage] 1,000 mg PO BIDWM 02/09/19 Insulin 70/30 NPH/Reg Human [Novolin 70/30*] 40 units SQ BIDWM 10/15/19 - Past Medical/Surgical History Has patient received pneumonia vaccine in the past: No Diabetic: Yes -: Diabetes -: diabetic ulcers -: neuropathy -: sleep apnea -: DVT R leg -: vericose veins -: lymphedema -: rhabdomyolysis -: HTN -: jarvis lower leg surgery: broke and straightened -: debridement bilat great toes -: BLE vein surgery -: tonsillectomy - Family History Father -: Diabetes Mother -: Diabetes - Social History Smoking Status: Current every day smoker Alcohol use: Yes CD- Drugs: No Caffeine use: Yes Place of Residence: Home Review of Systems 10-point ROS is otherwise unremarkable Musculoskeletal: Foot Pain (Left 1st toe diabetic ulcer. ) Physical Examination - Vital Signs Temperature: 96.8 F Blood Pressure: 101/59 Pulse: 54 Respirations: 16 Pulse Ox (%): 96 - Physical Exam General: Alert, In no apparent distress HEENT: Atraumatic, PERRLA, Mucous membr. moist/pink, EOMI, Sclerae nonicteric Neck: Supple, 2+ carotid pulse no bruit, No LAD, Without JVD or thyroid abnormality Respiratory: Clear to auscultation bilaterally, Normal air movement Cardiovascular: Regular rate/rhythm, Normal S1 S2 Gastrointestinal: Normal bowel sounds, No tenderness Musculoskeletal: No tenderness Integumentary: No rashes, Diabetic ulcer (left plantar 1st toe. Clean base. No foul smell. He has surrounding swelling of the toe and minimal erythema) Neurological: Normal gait, Normal speech, Normal strength at 5/5 x4 extr, Normal tone, Normal affect Lymphatics: No axilla or inguinal lymphadenopathy - Studies Laboratory Data (last 24 hrs) 10/15/19 03:35: Sodium 139, Potassium 3.5, BUN 20 H, Creatinine 0.81, Glucose 185 H 10/15/19 03:35: WBC 6.7 D, Hgb 12.3 L, Hct 35.8 L, Plt Count 221 10/14/19 20:40: Sodium 138, Potassium 3.8, BUN 19 H, Creatinine 0.86, Glucose 204 H, Total Bilirubin 0.4, AST 13 L, ALT 27, Alkaline Phosphatase 87 10/14/19 20:40: WBC 9.2, Hgb 13.3 L, Hct 39.2 L, Plt Count 228 Assessment and Plan - Problems (Diagnosis) (1) Diabetes mellitus Onset Date: 07/22/14 Current Visit: No Status: Acute Plan: Will restart his home meds and check an A1c. Mostly he needs superintendent terminal follow up. The patient will be given my new office number. His lack of insurance may make things difficulty. His lack of insurance may make things. Qualifiers: Diabetes mellitus type: type 2 Diabetes mellitus superintendent terminal insulin use: with superintendent terminal use Diabetes mellitus complication status: with skin complications Diabetes mellitus complication detail: with foot ulcer Qualified Code(s): E11.621 - Type 2 diabetes mellitus with foot ulcer; L97.509 - Non-pressure chronic ulcer of other part of unspecified foot with unspecified severity; Z79.4 - superintendent terminal (current) use of insulin (2) Diabetic foot ulcer Current Visit: No Status: Acute Plan: Will continue iv fluids and antibiotics. Will have Dr. Howard look at him. Hopefully this is not osteomyleitis. Even if it is we can treat if he is more stable with oral antibiotics. However will discuss with Dr. Howard. Will have wound care look at the patient. Consider restarting stimulant powder. Qualifiers: Diabetic foot ulcer location: toe Diabetes mellitus type: type 2 Laterality: left Non-pressure ulcer stage: limited to breakdown of skin Qualified Code(s): E11.621 - Type 2 diabetes mellitus with foot ulcer; L97.521 - Non-pressure chronic ulcer of other part of left foot limited to breakdown of skin (3) Uninsured medical expenses Current Visit: Yes Status: Chronic Plan: This is a difficulty due to the patient not coming to wound care. As well as if he needs superintendent terminal IV antibiotics. As his wbc are dropping and based on the cultures. Perhaps we can discharge him on oral antibiotics Discharge Plan: Home Plan to discharge in: 48 Hours - Advance Directives Does patient have a Living Will: No Does patient have a Durable POA for Healthcare: No - Code Status/Comfort Care Code Status Assessed: Yes Code Status: Full Code Physician Review: Patient Assessed, Agree with Above Assessment and Plan Critical Care: No Time Spent Managing Pts Care (In Minutes): 45
[2019-10-15] MEDS: INSULIN 70/30 100 UNITS/ML SQ SCH (17:00)
[2019-10-15] MEDS: METFORMIN HCL 500 MG TAB PO SCH (17:00)
--- NOTE | 2019-10-15 17:43 | P.CNS ---
Date of Consult: 10/15/19 Reason for Consult: osteomyelitis left hallux Primary Care Provider: Nasir Chief Complaint: diabetic foot Allergies vancomycin Allergy (Severe, Verified 11/25/14 14:53) Hives/Rash Home Medications: Gabapentin [Neurontin] 600 mg PO BID 02/10/15 Buspirone HCl [Buspar] 10 mg PO TID 02/09/19 Ibuprofen [Ibu] 600 mg PO Q6HP PRN 02/09/19 Metformin HCl [Glucophage] 1,000 mg PO BIDWM 02/09/19 Insulin 70/30 NPH/Reg Human [Novolin 70/30*] 40 units SQ BIDWM 10/15/19 - Past Medical/Surgical History Diabetic: Yes -: Diabetes -: diabetic ulcers -: neuropathy -: sleep apnea -: DVT R leg -: vericose veins -: lymphedema -: rhabdomyolysis -: HTN -: jarvis lower leg surgery: broke and straightened -: debridement bilat great toes -: BLE vein surgery -: tonsillectomy - Family History Father Medical History: Diabetes Mother Medical History: Diabetes - Social History Smoking Status: Current some day smoker Alcohol use: Yes CD- Drugs: No Caffeine use: Yes Place of Residence: Home Review of Systems 10-point ROS is otherwise unremarkable Physical Examination Temp Pulse Resp BP Pulse Ox 97.0 F 62 16 132/61 97 10/15/19 16:00 10/15/19 16:00 10/15/19 16:00 10/15/19 16:00 10/15/19 16:00 General: Alert, In no apparent distress, Oriented x3 Cardiovascular: No edema, Normal pulses Capillary refill: <2 Seconds Musculoskeletal: No clubbing, No swelling, No contractures, No erythema, No tenderness, No warmth Integumentary: Diabetic ulcer (ulceration plantar aspect of left hallux with milde hypergranulation. No purulence, no erythema noted.) Neurological: Abnormal sensation Laboratory Data (last 24 hrs) 10/15/19 03:35: Sodium 139, Potassium 3.5, BUN 20 H, Creatinine 0.81, Glucose 185 H 10/15/19 03:35: WBC 6.7 D, Hgb 12.3 L, Hct 35.8 L, Plt Count 221 10/14/19 20:40: Sodium 138, Potassium 3.8, BUN 19 H, Creatinine 0.86, Glucose 204 H, Total Bilirubin 0.4, AST 13 L, ALT 27, Alkaline Phosphatase 87 10/14/19 20:40: WBC 9.2, Hgb 13.3 L, Hct 39.2 L, Plt Count 228 Imagings Data: xray three views left foot reveal pathologic fracture of the head of the left hallux proximal phalanx. Report confirms osteomyelitis of the distal and proximal phalanx - Problems (1) Diabetic foot ulcer Current Visit: No Status: Acute Qualifiers: Diabetic foot ulcer location: toe Diabetes mellitus type: type 2 Laterality: left Non-pressure ulcer stage: limited to breakdown of skin Qualified Code(s): E11.621 - Type 2 diabetes mellitus with foot ulcer; L97.521 - Non-pressure chronic ulcer of other part of left foot limited to breakdown of skin (2) Cellulitis of foot, left Onset Date: 11/12/14 Current Visit: No Status: Resolved Conclusions/Impression: With the patient having osteomyelitis the patient has options including antibiotic therapy vs amputation of the hallux. The patient is wanting to attempt to salvage the digit and would like to try antibiotic therapy. Patient to follow up with Dr. Best for wound care and antibiotic therapy
[2019-10-15] MEDS: GABAPENTIN 300 MG CAP PO SCH (20:51)
[2019-10-15] MEDS: Levofloxacin 750mg IV 750 MG/150 ML BAG IV SCH (22:01)
[2019-10-16] MEDS: MORPHINE 4 MG/ML SYR IV PRN ×3 (00:06→08:26)
[2019-10-16] MEDS: METRONIDAZOLE 500mg IVPB 500 MG/100 ML BAG IV SCH ×2 (01:00→06:45)
[2019-10-16] MEDS: NA CHLORIDE 0.9% 1,000 ML IV SCH (04:00)
[2019-10-16] MEDS: METFORMIN HCL 500 MG TAB PO SCH (08:29)
[2019-10-16] MEDS: GABAPENTIN 300 MG CAP PO SCH (08:29)
[2019-10-16] MEDS: INSULIN 70/30 100 UNITS/ML SQ SCH (08:29)
[2019-10-16] MEDS: INSULIN -REGULAR HUMAN 50 UNIT/0.5 ML ML SQ SCH (08:30)
[2019-10-16] MEDS ORDERED: MUPIROCIN 2% OINT 22GM TUBE TOP SCH (09:00)
--- NOTE | 2019-10-16 09:21 | P.DS ---
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 [facility] use Diabetes mellitus complication status: with skin complications Diabetes mellitus complication detail: with foot ulcer Qualified Code(s): E11.621 - Type 2 diabetes mellitus with foot ulcer; L97.509 - Non-pressure chronic ulcer of other part of unspecified foot with unspecified severity; Z79.4 - [facility] (current) use of insulin (2) Diabetic foot ulcer Current Visit: No Status: Acute Qualifiers: Diabetic foot ulcer location: toe Diabetes mellitus type: type 2 Laterality: left Non-pressure ulcer stage: limited to breakdown of skin Qualified Code(s): E11.621 - Type 2 diabetes mellitus with foot ulcer; L97.521 - Non-pressure chronic ulcer of other part of left foot limited to breakdown of skin (3) Uninsured medical expenses Current Visit: Yes Status: Chronic Brief History of Present Illness: Patient is a diabetic with chronic foot ulcers. I have seen him previously in the wound care clinic. The last time was this past April. He was improving and the patient decided to stop coming. Partly due to his being uninsured and financial burden of health care. He has a history of diabetes. The patient last a1c was 9.2 in February of last year. He has been having pain for the last 2 days. Looked at his left 1st toe and noticed swelling and pain. This prompted him to come to the ER. His wound has not resolved for the last 6 months. Thought he denies any injuries, he has an open wound and uncontrolled diabetes. In the ER he did not have a high WBC. However the xray showed possible osteomyelitis. The patient has had similar imaging in the past. So this may be some chronic inflammation. However it was prudent to admit for cultures and IV antibiotics. Hospital Course: Patient was admitted for possible osteomylitis. He also has a pathological fractue. The patient has uncontrolled diabetes. However in house he had negative blood cultures and did not ever have a elevated wbc. The patient is willing to try a trial of oral antibiotics. Will put him on 6 weeks of oral levaquin and bactrim. Will also add bactroban to protect the wound. Vital Signs/Physical Exam: Temp Pulse Resp BP Pulse Ox 97 F 65 16 107/69 95 10/16/19 04:00 10/16/19 04:00 10/16/19 08:26 10/16/19 04:00 10/16/19 08:26 General: Alert, In no apparent distress HEENT: Atraumatic, PERRLA, EOMI Neck: Supple, JVD not distended Respiratory: Clear to auscultation bilaterally, Normal air movement Cardiovascular: Regular rate/rhythm, Normal S1 S2 Gastrointestinal: Normal bowel sounds, No tenderness Musculoskeletal: No tenderness Integumentary: No rashes, Diabetic ulcer (on the left dorsal great toe) Neurological: Normal speech, Normal tone, Normal affect Lymphatics: No axilla or inguinal lymphadenopathy Laboratory Data at Discharge: WBC 6.7 K/uL (4.3-10.9) D 10/15/19 03:35 Hgb 12.3 g/dL (13.6-17.9) L 10/15/19 03:35 Hct 35.8 % (39.6-49.0) L 10/15/19 03:35 Plt Count 221 K/uL (152-406) 10/15/19 03:35 Sodium 139 mmol/L (136-145) 10/15/19 03:35 Potassium 3.5 mmol/L (3.5-5.1) 10/15/19 03:35 BUN 20 mg/dL (7-18) H 10/15/19 03:35 Creatinine 0.81 mg/dL (0.55-1.3) 10/15/19 03:35 Glucose 185 mg/dL (74-106) H 10/15/19 03:35 Total Bilirubin 0.4 mg/dL (0.2-1.0) 10/14/19 20:40 AST 13 U/L (15-37) L 10/14/19 20:40 ALT 27 U/L (12-78) 10/14/19 20:40 Alkaline Phosphatase 87 U/L (45-117) 10/14/19 20:40 Home Medications: Gabapentin [Neurontin] 600 mg PO BID 02/10/15 Buspirone HCl [Buspar] 10 mg PO TID 02/09/19 Ibuprofen [Ibu] 600 mg PO Q6HP PRN 02/09/19 Metformin HCl [Glucophage] 1,000 mg PO BIDWM 02/09/19 Insulin 70/30 NPH/Reg Human [Novolin 70/30*] 40 units SQ BIDWM 10/15/19 Levofloxacin [Levaquin] 500 mg PO DAILY 14 Days #14 tablet 10/16/19 Mupirocin Oint [Bactroban 2% Ointment] 15 gm TP BID 30 Days #3 tube 10/16/19 Smz./Tmp. [Bactrim Ds 800 MG/160 MG] 1 tab PO BID 14 Days #28 tab 10/16/19 New Medications: Levofloxacin [Levaquin] 500 mg PO DAILY 14 Days #14 tablet Mupirocin Oint [Bactroban 2% Ointment] 15 gm TP BID 30 Days #3 tube Smz./Tmp. [Bactrim Ds 800 MG/160 MG] 1 tab PO BID 14 Days #28 tab Diet: ADA Activity: Ad cesar Followup: Yrn Best MD [ACTIVE - CAN ADMIT] - 1-2 Weeks Time spent managing pt's care (in minutes): 30
[2019-10-16 09:55] VITALS: BP 116/54; TEMP 96.9
[2019-10-16] MEDS ORDERED: PNEUMOCOCCAL VACCINE 0.5 ML IMVAC ONE (11:00)
[2019-10-16] MEDS ORDERED: INFLUENZA VACCINE (for 3y+) 0.5 ML DOSE IMVAC ONE (11:00)
[2019-10-16 11:18] VITALS: O2SAT 95
== END 2019-10-16 11:12 | disposition home or self-care (01) | DRG 638 ==
LOC: ER 19:50 → ERHOLD 21:47 → 4TH 10-15 00:28 → OBSVTOIN 10-15 07:52
PROVIDERS: ADMIT Internal Medicine; ATTEND Internal Medicine
DX: E11.621 Type 2 diabetes mellitus with foot ulcer (principal); L03.116 Cellulitis of left lower limb; L97.521 Non-pressure chronic ulcer of other part of left foot limited to breakdown of skin; E11.65 Type 2 diabetes mellitus with hyperglycemia; Z79.4 Long term (current) use of insulin
CPT/HCPCS: 36415; 80048; 80053; 81003; 81015; 82947; 83605; 84145; 85025; 87040; 87070; 87077; 87186; 87205; 90471; 90670; 96365; 96375; 99251; 99285; G0378; J1815; J2405; J7030; Q2035

== ENCOUNTER 2019-10-22 12:37 | Emergency (ER) | payer SELFPAY ==
--- OUTSIDE RECORDS SUMMARY | 2019-10-22 12:46 | XMS REPORT ---
:1980 [facility] Address [address] [place] [address] Care Team Providers Name Role Phone Unavailable [...] (test code=GLUBED) 202 mg/dL 70-110 BASIC METABOLIC [id number] 05:36:00 Test Item Value Reference Range Comments [...] 0.6-1.0 CALCIUM (test code=CA) 8.2 mg/dL 7.8-10.9 [id number] 05:01:00 Test Item Value Reference Range Comments GLUBED (test code=GLUBED) 185 mg/dL 70-110 CBC W/AUTO [id number] 04:37:00 Test Item Value Reference Range Comments [...] RBC # (test code=NRBC#) 0.00 K/mm3 0.00-0.20 [id number] 20:40:00 Test Item Value Reference Range Comments GLUBED (test code=GLUBED) 256 mg/dL 70110 [id number] 17:24:00 Test Item Value Reference Range Comments GLUBED (test code=GLUBED) 244 mg/dL [address]10 [id number] 11:31:00 Test Item Value Reference Range Comments GLUBED (test code=GLUBED) 272 mg/dL 70-110 - DUP LE ART [id number] 09:44:00 [place]: [facility] St: [facility]: [facility] 1980 Age/S: 37/M [address] [facility] Unit #: [id number] Loc: [address] [place], [place] [address] Phys: Keny Duran MD Acct: [id number] Dis Date: Status: ADM IN PHONE #: [phone] Exam Date: 12/02/20181 FAX #: [phone] Reason: diabetic ulcers EXAMS: CPT CODE: [id number] DUP LE ART ARAVIND 01555AXMEJIK: Ulcers TECHNIQUE: Grayscale B-mode, color-flow, and spectral [...] 12/02/2018 (0944) PAGE 1 Signed ReportCOMPREHENSIVE METABOLIC [id number] 06:17:00 Test Item Value Reference Range Comments [...] PHOSPHATASE TOTAL 84 U/L 45-117 (test code=ALKP) [id number] 06:17:00 Test Item Value Reference Range Comments MAGNESIUM (test code=MAG) 2.0 mg/dL 1.5-2.1 COMPREHENSIVE METABOLIC [id number] 06:10:00 Test Item Value Reference Range Comments [...] ALKALINE PHOSPHATASE TOTAL (test code=ALKP) U/L 45-117 [id number] 06:10:00 Test Item Value Reference Range Comments MAGNESIUM (test code=MAG) mg/dL 1.5-2.1 - CT CHEST W/O [id number] 05:51:00 [place]: [facility] St: [facility]: [facility] 1980 Age/S: 37/M [address] [facility] Unit #: [id number] Loc: [facility] [place], [place] [address] Phys: Keny Duran MD Acct: [id number] Dis Date: Status : ADM IN PHONE #: [phone] Exam Date: 12/01/2018 0534 FAX #: [phone] Reason: PNA CTDI: DLP: Automated exposure control, iterative reconstruction technique, and/oradjustment of mA and /or kV according to patient's size was utilized fooptimum radiation dose reduction. EXAMS: CPT CODE: [id number] CT CHEST W/O CONTRAST 42657 HISTORY: Pneumonia TECHNIQUE: Axial tomograms through the [...] D/T: S: 12/02/2018 (0554) PAGE 1 S[facility] W/AUTO [id number] 05:44:00 Test Item Value Reference Range Comments [...] RBC # (test code=NRBC#) 0.00 K/mm3 0.00-0.20 [id number] 05:10:00 Test Item Value Reference Range Comments GLUBED (test code=GLUBED) 201 mg/dL 70-110 - DUP VEIN [id number] 04:37:00 [place]: [facility] St: [facility]: [facility] 1980 Age/S: 37/M [address] [facility] Unit #: [id number] Loc: [place] [address] Phys: Keny Duran MD Acct: [id number] Dis Date: Status: ADM IN PHONE #: [phone] Exam Date: 12/02/2018 0238 FAX #: [phone] Reason: BLE SWELLING EXAMS: CPT CODE: [id number] DUP VEIN ARAVIND 32353 HISTORY: Bilateral swelling TECHNIQUE : Grayscale real-time [...] 1 Signed Report- XR FOOT 2 VIEWS [id number] 00:17:00 FAX: Keny Leonard MD Camps: ER St: ADM FAX: 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 Name: SHILA COWART [facility] : 1980 Age/S: 37/M [address] [facility] Unit #: [id number] Loc: [address] [place], [place] [address] Phys: Keny Duran MD Acct: [id number] Dis Date: Status: ADM IN PHONE #: [phone] Exam Date: 12/01/2018 2304 FAX #: [phone] Reason: GREAT TOE ULCER EXAMS: CPT CODE: [id number] XR FOOT [address] [place] [address] LOCATION: V20 EXAM: - XR FOOT 2 [...] 1 Signed Report- XR FOOT 2 VIEWS [id number] 00:17:00 FAX: Keny Leonard MD Camps: ER St: ADM FAX: Sunday Mendoza NP [phone] --- Name: SHILA COWART [facility] : 1980 Age/S: 37/M [address] [facility] Unit #: [id number] Loc: [address] [address] Phys: Keny Duran MD Acct: [id number] Dis Date: Status: ADM IN PHONE #: [phone] Exam Date: 12/01/2018 2304 FAX #: [phone] Reason: GREAT TOE ULCER EXAMS: CPT CODE: [id number] XR FO[place] [address] [place] [address] LOCATION: V20 EXAM: - XR FOOT 2 [...] code=GLYHGB) 9.6 % 4.4-6.4 MEAN BLOOD GLUCOSE [id number] 22:46:00 Test Item Value Reference Range Comments MEAN BLOOD GLUCOSE CALCULATION (test code=MBGCALC) 228.8 URINALYSIS W/O [id number] 21:41:00 Test Item Value Reference Range Comments [...] code=LEUU) NEGATIVE NEGATIVE SOURCE: URINESPECIMEN DESCRIPTION: CMCUA [id number] 21:41:00 Test Item Value Reference Range Comments UA WBC (test code=WBCU) 2-5 0-5 UA RBC (test code=RBCU) 0-2 0-5 UA SQUAMOUS CELLS (test code=SQU) 5-10 #/lpf NONE SEEN SOURCE: URINESPECIMEN DESCRIPTION: CMCURINALYSIS W/O [id number] 21:04:00 Test Item Value Reference Range Comments [...] (test code=LEUU) NEGATIVE NEGATIVE SOURCE: URINESPECIMEN DESCRIPTION: [facility] [id number] 21:04:00 Test Item Value Reference Range Comments UA WBC (test code=WBCU) 0-5 UA RBC (test code=RBCU) 0-5 SOURCE: URINESPECIMEN DESCRIPTION: CMCURINALYSIS W/O [id number] 21:04:00 Test Item Value Reference Range Comments [...] code=LEUU) NEGATIVE NEGATIVE SOURCE: URINESPECIMEN DESCRIPTION: [facility] [id number] 21:04:00 Test Item Value Reference Range Comments UA WBC (test code=WBCU) 0-5 UA RBC (test code=RBCU) 0-5 SOURCE: URINESPECIMEN DESCRIPTION: CMCPOC LACTIC [id number] 20:50:00 Test Item Value Reference Range Comments POC LACTIC ACID (test code=POCLAC) 1.61 MMOL/L 0.40-2.00 - XR CHEST 1 [id number] 20:42:00 FAX: Xavier Maguire Camps: ER St: REG Name: [facility] : 1980 Age/S: 37/M [address] [facility] Unit #: [id number] Loc: [place], [place] [address] Phys: Xavier Maguire MD Acct: [id number] Dis Date: Status: REG ER PHONE #: [phone] Exam Date: 12/01/20182039 FAX #: [phone] Reason: code sepsis EXAMS: CPT CODE: [id number] XR CHEST 1 V [address] LOCATION : V20 EXAM: - XR CHEST [...] dose reduction. PAGE 1 Signed ReportHEPATIC FUNCTION [id number] 19:50:00 Test Item Value Reference Range Comments [...] PHOSPHATASE TOTAL 98 U/L 45-117 (test code=ALKP) [id number] 19:50:00 Test Item Value Reference Range Comments LIPASE (test code=LIP) 120 U/L 73-393 Reporting units: International Units/L NT PRO-BRAIN NATRIURETIC [id number] 19:50:00 Test Item Value Reference Range Comments NT PRO-BRAIN NATRIURETIC PEPTI (test code=PROBNP) 18 pg/mL 0-125 [id number] 19:50:00 Test Item Value Reference Range Comments TROPONIN-I (test <0.02 ng/mL 0.00-0.05 <0.05 Normal0.06 - code=TROPI) 0.39 Consistent with circulating Troponin with possible Myocardial injury.>0.40 Consistent with Myocardial injury extensive enough to conform with AMI as defined by WHO. PROCALCITONIN (PCT)2018-12-01 19:50:00 Test Item Value Reference Range Comments PROCALCITONIN (PCT) (test code=PROCAL) 0.05 ng/mL 0.00-0.05 CHEMISTRY 8 [id number] 19:36:00 Test Item Value Reference Range Comments [...] (test code=CREATBED) 0.7 MG/DL 0.6-1.0 HEPATIC FUNCTION [id number] 19:36:00 Test Item Value Reference Range Comments [...] PHOSPHATASE TOTAL 98 U/L 45-117 (test code=ALKP) [id number] 19:36:00 Test Item Value Reference Range Comments LIPASE (test code=LIP) 120 U/L 73-393 Reporting units: International Units/L NT PRO-BRAIN NATRIURETIC [id number] 19:36:00 Test Item Value Reference Range Comments NT PRO-BRAIN NATRIURETIC PEPTI (test code=PROBNP) 18 pg/mL 0-125 [id number] 19:36:00 Test Item Value Reference Range Comments TROPONIN-I (test <0.02 ng/mL 0.00-0.05 <0.05 Normal0.06 - code=TROPI) 0.39 Consistent with circulating Troponin with possible Myocardial injury.>0.40 Consistent with Myocardial injury extensive enough to conform with AMI as defined by WHO. PROCALCITONIN (PCT)2018-12-01 19:36:00 Test Item Value Reference Range Comments PROCALCITONIN (PCT) (test code=PROCAL) ng/mL 0.00-0.05 PROTHROMBIN [id number] 19:25:00 Test Item Value Reference Range Comments [...] THE PATIENT ON ANY ANTICOAGULANTS? NTHROMBOPLASTIN TIME [id number] 19: 25:00 Test Item Value Reference Range Comments THROMBOPLASTIN TIME PARTIAL (test code=PTT) 27.0 SECONDS 23.0-32.0 IS THE PATIENT ON ANY ANTICOAGULANTS? NPOC LACTIC [id number] 19:11:00 Test Item Value Reference Range Comments POC LACTIC ACID (test 2.68 MMOL/L 0.40-2.00 RESULTS CALLED TO [] AT 1911 code=POCLAC) 12/01/18.NMI-MTCRITICAL VALUE READ BACK BY NURSE AND VERIFIED BY TECH? []REFERENCE RANGES FOR: 1) ARTERIAL SAMPLE (0.5-1.6MMOL/L) 2) SPINAL FLUID (0.6-2.2MMOL/L) CBC W/AUTO [id number] 19:08:00 Test Item Value Reference Range Comments [...]
[2019-10-22] MEDS ORDERED: ONDANSETRON 4 MG/2 ML VIAL ONE (13:52)
[2019-10-22] MEDS ORDERED: NA CHLORIDE 0.9% 500 ML ONE (13:52)
[2019-10-22] MEDS ORDERED: MORPHINE 4 MG/ML SYR ONE (13:52)
[2019-10-22 14:18] LABS: Basophils % 0.6 % (0-1.3); Hematocrit 39.3 % (39.6-49.0); Lymphocytes % 28.7 % (15.3-44.8); MPV 9.1 fL (7.6-11.3); RBC Red Blood Cell Count 4.62 M/uL (4.33-5.43)
[2019-10-22 16:28] LABS: Albumin 3.3 g/dL (3.4-5.0); Bilirubin Total 0.3 mg/dL (0.2-1.0); Potassium 4.4 mmol/L (3.5-5.1); Protein, Total 8.3 g/dL (6.4-8.2)
--- NOTE | 2019-10-22 16:52 | ER ---
Nurse's Notes [facility] Name: Addy Quintana Jr Age: 38 yrs Sex: Male : 1980 Arrival Date: 10/22/2019 Time: 12:38 Bed 17 Private MD: Diagnosis: Diabetic foot wound Presentation: 10/22 13:21 Presenting complaint: Patient states: L great toe pain and swelling, has diabetic ulcer ph on bottom of toe, seen last week and admitted for infection, pain and swelling has mot improved. Transition of care: patient was not received from another setting of care. Onset of symptoms was October 22, 2019. Risk Assessment: Do you want to hurt yourself or someone else? Patient reports no desire to harm self or others. Initial Sepsis Screen: Does the patient meet any 2 criteria? No. Patient's initial sepsis screen is negative. Does the patient have a suspected source of infection? Yes: Skin breakdown/wound. Care prior to arrival: None. 13:21 Method Of Arrival: Wheelchair ph 13:21 Acuity: FLORENCIO 3 ph Historical: - Allergies: 13:21 VANCOMYCIN AND DERIVATIVES; ph - Home Meds: 13:21 gabapentin 600 mg Oral tab 3 times per day [Active]; metformin 1,000 mg Oral tab 1 tab ph 2 times per day [Active]; - PMHx: 13:21 Diabetes - IDDM; Hypertension; neuropathy; ph - Immunization history:: Adult Immunizations up to date. - Ebola Screening: : Patient negative for fever greater than or equal to 101.5 degrees Fahrenheit, and additional compatible Ebola Virus Disease symptoms. Screenin:30 Abuse screen: Denies threats or abuse. Nutritional screening: No deficits noted. rb1 Tuberculosis screening: No symptoms or risk factors identified. Fall Risk None identified. Assessment: 13:30 General: Appears in no apparent distress. comfortable, Behavior is calm, cooperative. rb1 Pain: Complains of pain in left great toe Pain currently is 8 out of 10 on a pain scale. Pain began chronic diabetic ulcer per pt. report. 12 + years. Neuro: Level of Consciousness is awake, alert, obeys commands, Oriented to person, place, time, situation. Cardiovascular: Capillary refill < 3 seconds is brisk in bilateral fingers Pulses are palpable in left foot. Respiratory: Airway is patent Respiratory effort is even, unlabored, Respiratory pattern is regular, symmetrical. GI: No signs and/or symptoms were reported involving the gastrointestinal system. : No signs and/or symptoms were reported regarding the genitourinary system. Derm: Decubitus located on left great toe approximately Musculoskeletal: Range of motion: intact in all extremities. 14:20 Reassessment: Patient appears in no apparent distress at this time. Patient and/or rb1 family updated on plan of care and expected duration. Pain level reassessed. Patient is alert, oriented x 3, equal unlabored respirations, skin warm/dry/pink. 15:20 Reassessment: Patient appears in no apparent distress at this time. Patient and/or rb1 family updated on plan of care and expected duration. Pain level reassessed. Patient is alert, oriented x 3, equal unlabored respirations, skin warm/dry/pink. Pain 2/10. 15:41 Reassessment: Called Lab to check on the recollect. Per GÓMEZ Gonzales, Kat came from [facility] the lab to draw the blood and was unable to get the blood, Kat called lab and the lab was going to add it on. 16:20 Reassessment: Patient appears in no apparent distress at this time. Patient and/or rb1 family updated on plan of care and expected duration. Pain level reassessed. Patient is alert, oriented x 3, equal unlabored respirations, skin warm/dry/pink. 16:48 Reassessment: Patient appears in no apparent distress at this time. No changes from [facility] previously documented assessment. Vital Signs: 13:22 BP 101 / 83; Pulse 97; Resp 18; Temp 98.2(TE); Pulse Ox 98% on R/A; Weight 156.04 kg; ph Height 5 ft. 7 in. (170.18 cm); Pain 8/10; 14:30 BP 114 / 60; Pulse 85; Resp 18; Pulse Ox 96% on R/A; rb1 15:30 BP 131 / 88; Pulse 83; Resp 19; Pulse Ox 97% on R/A; rb1 16:30 BP 111 / 50; Pulse 74; Resp 18; Pulse Ox 99% ; rb1 13:22 Body Mass Index 53.88 (156.04 kg, 170.18 cm) ph ED Course: 12:38 Patient arrived in ED. as 13:22 Triage completed. ph 13:23 Arm band placed on. ph 13:26 Fernando Rubio FNP-C [facility]. la1 13:26 Pelon Ram MD is Attending Physician. la1 13:30 Patient has correct armband on for positive identification. Bed in low position. Call rb1 light in reach. Side rails up X 1. Pulse ox on. NIBP on. 13:42 Carine Fuentes, RN is Primary Nurse. rb1 14:00 Initial lab(s) drawn, by me, sent to lab. First set of blood cultures drawn by me. dh3 Inserted saline lock: 20 gauge in right wrist, using aseptic technique. Blood collected. 14:15 Second set of blood cultures drawn by nm. dh3 16:50 Yrn Best MD is Referral Physician. la1 17:10 No provider procedures requiring assistance completed. IV discontinued, intact, rb1 bleeding controlled, No redness/swelling at site. Pressure dressing applied. Administered Medications: 14:05 Drug: NS 0.9% 500 ml Route: IV; Rate: bolus; Site: right wrist; rb1 14:20 Follow up: IV Status: Completed infusion rb1 14:06 Drug: morphine 4 mg Route: IVP; Site: right wrist; rb1 14:20 Follow up: Response: No adverse reaction; Pain is decreased rb1 14:06 Drug: Zofran 4 mg Route: IVP; Site: right wrist; rb1 14:20 Follow up: Response: No adverse reaction rb1 16:53 Drug: [place] (7.5 mg-325 mg) 1 tabs Route: PO; rb1 17:10 Follow up: Response: No adverse reaction rb1 Outcome: 16:50 Discharge ordered by . la1 17:10 Discharged to home via wheelchair, with family. rb1 17:10 Condition: stable 17:10 Discharge instructions given to patient, Instructed on discharge instructions, follow up and referral plans. medication usage, Demonstrated understanding of instructions, follow-up care, medications, Prescriptions given X 1. 17:11 Patient left the ED. rb1 Signatures: Oumou Wesley as Fernando Rubio FNP-C ANCILLARY SPECIALIST-Cla1 Lida Jo, RN RN ph Carine Fuentes, RN RN rb1 Raquel Saavedra 3
--- NOTE | 2019-10-22 16:52 | EDPHYS ---
Physician Documentation [facility] Name: Addy Quintana Jr Age: 38 yrs Sex: Male : 1980 Arrival Date: 10/22/2019 Time: 12:38 Bed 17 Private MD: ED Physician Pelon Ram HPI: 10/22 13:53 This 38 yrs old Male presents to ER via Wheelchair with complaints of Feet la1 Swelling. 13:53 The patient presents with Diabetic foot wound. The complaints affect the left foot, la1 left first toe and Left first toenail. Onset: The symptoms/episode began/occurred 12 year(s) ago. Modifying factors: The symptoms are alleviated by nothing, the symptoms are aggravated by weight bearing, movement. Associated signs and symptoms: Pertinent positives: warmth, Pertinent negatives: fever, nausea, vomiting. Severity of symptoms: At their worst the symptoms were moderate. The patient has experienced similar episodes in the past. Pt was admitted about a week ago for diabetic foot wound and started on abx, is taking levaquin and bactrim at home and is due to FU with Dr. Best on Saturday. Pt states last night his toe began swelling and getting much more red with increasing pain, pt attempted to go to work today but could not tolerate the pain. Reports left great toe is significantly for swollen and red than when he was recently discharged. Historical: - Allergies: 13:21 VANCOMYCIN AND DERIVATIVES; ph - Home Meds: 13:21 gabapentin 600 mg Oral tab 3 times per day [Active]; metformin 1,000 mg Oral tab 1 tab ph 2 times per day [Active]; - PMHx: 13:21 Diabetes - IDDM; Hypertension; neuropathy; ph - Immunization history:: Adult Immunizations up to date. - Ebola Screening: : Patient negative for fever greater than or equal to 101.5 degrees Fahrenheit, and additional compatible Ebola Virus Disease symptoms. ROS: 13:55 Constitutional: Negative for fever, chills, and weight loss, Eyes: Negative for injury, la1 pain, redness, and discharge, ENT: Negative for injury, pain, and discharge, Cardiovascular: Negative for chest pain, palpitations, and edema, Respiratory: Negative for shortness of breath, cough, wheezing, and pleuritic chest pain, Abdomen/GI: Negative for abdominal pain, nausea, vomiting, diarrhea, and constipation, Back: Negative for injury and pain, MS/Extremity: Negative for injury and deformity, Neuro: Negative for headache, weakness, numbness, tingling, and seizure. 13:55 MS/extremity: Positive for erythema, swelling, tenderness, warmth, of the left first toe. Exam: 13:56 Constitutional: This is a well developed, well nourished patient who is awake, alert, la1 and in no acute distress. Head/Face: Normocephalic, atraumatic. Eyes: Pupils equal round and reactive to light, extra-ocular motions intact. Periorbital areas with no swelling, redness, or edema. ENT: . Mucous membranes moist. Chest/axilla: Normal chest wall appearance and motion. Nontender with no deformity. No lesions are appreciated. Cardiovascular: Regular rate and rhythm with a normal S1 and S2. No gallops, murmurs, or rubs. Normal PMI, no JVD. No pulse deficits. Respiratory: Lungs have equal breath sounds bilaterally, clear to auscultation No rales, rhonchi or wheezes noted. No increased work of breathing, no retractions or nasal flaring. Abdomen/GI: Soft, non-tender, with normal bowel sounds 13:56 MS/ Extremity: Pulses equal, no cyanosis. Neurovascular intact. Full, normal range of motion. 13:56 Skin: Wound recheck: Cellulitis: the condition appears to have progressed, increased erythema, increased pain, increased swelling. Vital Signs: 13:22 BP 101 / 83; Pulse 97; Resp 18; Temp 98.2(TE); Pulse Ox 98% on R/A; Weight 156.04 kg; ph Height 5 ft. 7 in. (170.18 cm); Pain 8/10; 14:30 BP 114 / 60; Pulse 85; Resp 18; Pulse Ox 96% on R/A; rb1 15:30 BP 131 / 88; Pulse 83; Resp 19; Pulse Ox 97% on R/A; rb1 16:30 BP 111 / 50; Pulse 74; Resp 18; Pulse Ox 99% ; rb1 13:22 Body Mass Index 53.88 (156.04 kg, 170.18 cm) ph MDM: 13:26 Patient medically screened. la1 15:54 ED course: care delayed mis communication between nursing staff and phlebotomy. First la1 tube hemolyzed.. 16:48 Data reviewed: vital signs, nurses notes, radiologic studies, I have discussed the la1 patient's presentation/case with the attending Emergency Department Physician; and as a result, I will discharge patient. Data interpreted: Pulse oximetry: on room air is 97 %. Interpretation: normal. Counseling: I had a detailed discussion with the patient and/or guardian regarding: the historical points, exam findings, and any diagnostic results supporting the discharge/admit diagnosis, lab results, the need for outpatient follow up, a family practitioner, to return to the emergency department if symptoms worsen or persist or if there are any questions or concerns that arise at home. ED course: Discussed case with Dr. Best who saw patient in ED and will see pt on outpatient basis, wound culture results indicate that they are susceptible to the abx he is taking now. Strict return precautions given. Pt amendable to plan. 10/22 13:43 Order name: CBC with Diff; Complete Time: 14:33 ky10/22 13:43 Order name: CMP; Complete Time: 16:30 10/22 13:43 Order name: Blood Culture Adult (2) 10/22 14:11 Order name: Sed Rate; Complete Time: 15:07 10/22 14:11 Order name: CRP; Complete Time: 16:30 10/22 13:43 Order name: SL; Complete Time: 14:06 10/22 14:17 Order name: Labs - recollect needed: Green top - hemolyzed; Complete Time: 15:41 em1 Administered Medications: 14:05 Drug: NS 0.9% 500 ml Route: IV; Rate: bolus; Site: right wrist; rb1 14:20 Follow up: IV Status: Completed infusion rb1 14:06 Drug: morphine 4 mg Route: IVP; Site: right wrist; rb1 14:20 Follow up: Response: No adverse reaction; Pain is decreased rb1 14:06 Drug: Zofran 4 mg Route: IVP; Site: right wrist; rb1 14:20 Follow up: Response: No adverse reaction rb1 16:53 Drug: [place] (7.5 mg-325 mg) 1 tabs Route: PO; rb1 17:10 Follow up: Response: No adverse reaction rb1 Disposition: 18:32 Co-signature as Attending Physician, Pelon Ram MD. rn Disposition: 10/22/19 16:50 Discharged to Home. Impression: Diabetic foot wound. - Condition is Stable. - Discharge Instructions: Diabetes and Foot Care, Diabetes Mellitus and Food. - Prescriptions for Tramadol 50 mg Oral Tablet - take 1 tablet by ORAL route every 8 hours as needed; 12 tablet. - Medication Reconciliation Form, Thank You Letter, Prescription Opioid Use form. - Follow up: Yrn Best MD; When: 1 week. - Problem is new. - Symptoms have improved. Signatures: Dispatcher [employer] EDPR Pelon Ram MD MD rn Emil Wesley em1 Fernando Rubio, EXPERT WITNESS-C EXPERT WITNESS-Cla1 Lida Jo, RN RN Carine Fuentes, RN RN rb1 Corrections: (The following items were deleted from the chart) 17:11 16:51 10/22/2019 16:50 Discharged to Home. Impression: Diabetic foot wound. Condition rb1 is Stable. Forms are Medication Reconciliation Form, Thank You Letter, Antibiotic Education, Prescription Opioid Use. Follow up: Yrn Best; When: 1 week. Problem is new. Symptoms have improved. la1
[2019-10-22] MEDS ORDERED: HYDROCODONE/APAP 7.5/325 MG TAB ONE (16:54)
[2019-10-22 17:17] VITALS: TEMP 98.2
[2019-10-22 17:21] VITALS: BP 111/50; O2SAT 99
== END 2019-10-22 17:11 | disposition home or self-care (01) ==
LOC: ER 12:37
DX: E11.621 Type 2 diabetes mellitus with foot ulcer (principal); L97.521 Non-pressure chronic ulcer of other part of left foot limited to breakdown of skin; Z88.3 Allergy status to other anti-infective agents
CPT/HCPCS: 36415; 80053; 85025; 85652; 86140; 87040; 96374; 96375; 99284; J2405; J7040

== ENCOUNTER 2020-05-25 10:23 | Inpatient (IN) | payer SELFPAY ==
--- OUTSIDE RECORDS SUMMARY | 2020-05-25 10:26 | XMS REPORT | Continuity of Care Document ---
:1980 Author Organization [facility] t Address [address] [place] [address] Care Team Providers Name Role Phone Unavailable Unavailable Unavailable Payers Payer Name Policy Type Policy Number Effective Date Expiration Date S ource Problems This patient has no known problems. Allergies, Adverse Reactions, Alerts Allergy Allergy Status Severity Reaction(s) Onset Inactive Treating Comm ents Source Name Type Date Date Clinician No DA Active U [facility] All[facility] 12-01 [place] [facility] 00:00: [facility] 00 [facility] vancomyc DA Active SV 0 [facility] in 2-25 [place] 00:00: [address] Medications This patient has no known medications. Procedures This patient has no known procedures. Results Test Description Test Time Test Comments Results Result Comments Source GLUBED 2018-12-03 11:29:00 Test Item Value Reference Range Interpretation Comme nts GLUBED (test code = GLUBED) 202 mg/dL 70-110 H BASIC METABOLIC [id number] 05:36:00 Test Item Value Reference Range Interpretation Comments SODIUM (test code = 138 mmol/L 136-145 N NA) POTASSIUM (test code = 3.9 mmol/L 3.5-5.1 N K) CHLORIDE (test code = 105 mmol/L 98-113 N CL) CARBON DIOXIDE (test 28 mmol/L 21-32 N code = CO2) GLUCOSE (test code = 208 mg/dL 65-99 H GLU) BLOOD UREA NITROGEN 19 mg/dL 7-18 H (test code = BUN) GLOMERULAR FILTRATION 114 Report ing units: RATE (test code = GFR) ml/mi n/1.73m\S\2 (Modified MDRD Formula)If age < 18 years, GFR is n ot applicable. KD/ DOQI Clinical Practi ce Guidelines: Sta ge 1: Kidney damage w/normal or inc reased GFR >90Stag e 2: Kidney damage w /mild decrease in GFR 60 - 89Stage 3: Moderate decrea se in GFR 30 - 59Stage 4: Severe decrease in GFR 15 - 29Stage 5: Kidney failure < 15 (or dialysis) CREATININE (test code 0.8 mg/dL 0.6-1.0 N = CREAT) CALCIUM (test code = 8.2 mg/dL 7.8-10.9 N CA) [id number] 05:01:00 Test Item Value Reference Range Interpretation Comments GLUBED (test code = GLUBED) 185 mg/dL 70-110 H CBC W/AUTO [id number] 04:37:00 Test Item Value Reference Range Interpretation Comments WHITE BLOOD CELL (test code = 3.9 K/mm3 4.8-10.8 L WBC) RED BLOOD CELL (test code = RBC) 4.66 M/mm3 4.2-5.4 N HEMOGLOBIN (test code = HGB) 13.5 gm/DL 13.5-17.5 N HEMATOCRIT (test code = HCT) 40.9 % 37.1-51.5 N MEAN CELL VOLUME (test code = 87.8 fL 81-99 N MCV) MEAN CELL HGB (test code = MCH) 29.0 pg 27-31 N MEAN CELL HGB CONCETRATION (test 33.0 gm/dL 33-37 N code = MCHC) RED CELL DISTRIBUTION WIDTH (test 13.3 % 11.5-14.5 N code = RDW) PLATELET COUNT (test code = PLT) 139 X10(3) 130-400 N MEAN PLATELET VOLUME (test code = 10.9 fL 9.4-12.4 N MPV) NEUTROPHIL % (test code = NT%) 48.5 % 51.5-79.7 L IMMATURE GRANULOCYTE % (test code 0.300 % 0.108-0.322 N = IG%) LYMPHOCYTE % (test code = LY%) 31.2 % 14-40 N MONOCYTE % (test code = MO%) 16.2 % 4.0-10.2 H EOSINOPHIL % (test code = EO%) 3.3 % 0-4.1 N BASOPHIL % (test code = BA%) 0.5 % 0.1-0.7 N NUCLEATED RBC % (test code = 0 % 0-0 N NRBC%) NEUTROPHIL # (test code = NT#) 1.9 K/mm3 2.5-8.6 L IMMATURE GRANULOCYTE # (test code 0.010 K/mm3 0.0052-0.0224 N = IG#) LYMPHOCYTE # (test code = LY#) 1.2 K/mm3 1.1-3.6 N MONOCYTE # (test code = MO#) 0.6 K/mm3 0.3-0.9 N EOSINOPHIL # (test code = EO#) 0.13 # 0.0-0.4 N BASOPHIL # (test code = BA#) 0.02 K/mm3 0.0-0.2 N NUCLEATED RBC # (test code = 0.00 K/mm3 0.00-0.20 N NRBC#) [id number] 20:40:00 Test Item Value Reference Range Interpretation Comments GLUBED (test code = GLUBED) 256 mg/dL 70-110 H [id number] 17:24:00 Test Item Value Reference Range Interpretation Comments GLUBED (test code = GLUBED) 244 mg/dL 70-110 H [id number] 11:31:00 Test Item Value Reference Range Interpretation Comments GLUBED (test code = GLUBED) 272 mg/dL 70-110 H - DUP LE ART [id number] 09:44:00 [place]: [address]: [facility] 1980 Age/S: 37/M [address] Unit #: [id number] Loc: [address] [place], [place] [address] Phys: Keny Duran MD Acct: [id number] Dis Date: Status: ADM IN PHONE #: [phone] Exam Date: 12/02/2018 033 FAX #: [phone] Reason: diabetic ulcers EXAMS: CPT CODE: [id number] DUP LE ART ARAVIND [id number]: Ulcers TECHNIQUE: Grayscale B-mode, color-flow, and spectral Doppler analysis of the lower extremity arterial vasculature was performed. COMPARISON: None availabletime of interpretation. FINDINGS: Right lower extremity: Triphasic and biphasic waveforms are demonstrated throughout the right lower extremity arterial structures Left lower extremity: Probably triphasic and biphasic waveforms are seen involving the left lower extremity arterial structures with monophasic waveforms involving the [...] Technologist: SANDY CASTRO RDMS Transcribed Date/Time/By: 12/02/2018 (0944) : By: [email or web address] Orig Print D/T:S: 12/02/2018 (0944) PAGE 1 Signed ReportCOMPREHENSIVE METABOLIC PANEL 2018-12-02 06:17:00 Test Item Value Reference Range Interpretation Comments SODIUM (test code = 136 mmol/L 136-145 N NA) POTASSIUM (test code 4.0 mmol/L 3.5-5.1 N = K) CHLORIDE (test code = 102 mmol/L 98-113 N CL) CARBON DIOXIDE (test 27 mmol/L 21-32 N code = CO2) GLUCOSE (test code = 196 mg/dL 65-99 H GLU) BLOOD UREA NITROGEN 16 mg/dL 7-18 N (test code = BUN) GLOMERULAR FILTRATION 133 Report ing units: RATE (test code = ml/min/1.7 3m\S\2 GFR) (Modified MDRD Formula)If age < 18 years, GFR is n ot applicable. KD/ DOQI Clinical Practi ce Guidelines: Sta ge 1: Kidney damage w /normal or increased GF R >90Stage 2: Kid monroe damage w/mild d ecrease in GFR 60 - 89Stage 3: Mode rate decrease in GFR 30 - 59Stage 4: Apryl re decrease in GFR 15 - 29Stage 5: Kidn ey failure < 15 (or brian lysis) CREATININE (test code 0.7 mg/dL 0.6-1.0 N = CREAT) TOTAL PROTEIN (test 7.5 g/dL 6.4-8.2 N code = PROT) ALBUMIN (test code = 3.0 g/dL 3.4-5.0 L ALB) GLOBULIN (test code = 4.5 gm/dL 2.3-3.5 H GLOB) ALBUMIN/GLOBULIN 0.7 1.5-2.2 L RATIO (test code = A/G) CALCIUM (test code = 8.0 mg/dL 7.8-10.9 N CA) BILIRUBIN TOTAL (test 0.5 mg/dL 0.0-1.1 code = BILT) SGOT/AST (test code = 15 U/L 15-37 N Report ing units: AST) International U nits/L SGPT/ALT (test code = 31 U/L 10-30 H Report ing units: ALT) International U nits/L ALKALINE PHOSPHATASE 84 U/L 45-117 N TOTAL (test code = ALKP) [id number] 06:17:00 Test Item Value Reference Range Interpretation Comments MAGNESIUM (test code = MAG) 2.0 mg/dL 1.5-2.1 N COMPREHENSIVE METABOLIC [id number] 06:10:00 Test Item Value Reference Range Interpretation Comments SODIUM (test code = NA) 136 mmol/L 136-145 N POTASSIUM (test code = K) 4.0 mmol/L 3.5-5.1 N CHLORIDE (test code = CL) 102 mmol/L 98-113 N CARBON DIOXIDE (test code = CO2) 27 mmol/L 21-32 N GLUCOSE (test code = GLU) mg/dL 65-99 BLOOD UREA NITROGEN (test code = mg/dL 7-18 BUN) GLOMERULAR FILTRATION RATE (test code = GFR) CREATININE (test code = CREAT) mg/dL 0.6-1.0 TOTAL PROTEIN (test code = PROT) g/dL 6.4-8.2 ALBUMIN (test code = ALB) g/dL 3.4-5.0 GLOBULIN (test code = GLOB) gm/dL 2.3-3.5 ALBUMIN/GLOBULIN RATIO (test code 1.5-2.2 = A/G) CALCIUM (test code = CA) 8.0 mg/dL 7.8-10.9 N BILIRUBIN TOTAL (test code = BILT) mg/dL 0.0-1.1 SGOT/AST (test code = AST) U/L 15-37 SGPT/ALT (test code = ALT) U/L 10-30 ALKALINE PHOSPHATASE TOTAL (test U/L 45-117 code = ALKP) [id number] 06:10:00 Test Item Value Reference Range Interpretation Comments MAGNESIUM (test code = MAG) mg/dL 1.5-2.1 - CT CHEST W/O [id number] 05:51:00 [place]: [address]: [facility] 1980 Age/S: 37/M [address] [place] [facility] Unit #: [id number] Loc: [address] [place], [place] [address] Phys: Keny Duran MD Acct: [id number] Dis Date: Status: ADM IN PHONE #: [phone] Exam Date: 12/01/2018 0534 FAX #: [phone] Reason: PNA CTDI: DLP: Automated exposure control, iterative reconstruction technique, and/oradjustment of mA and/or kV according to patient's size was utilized fooptimum radiation dose reduction. EXAMS: CPT CODE: [id number] CT CHEST W/O CONTRAST 24409 HISTORY: Pneumonia TECHNIQUE: Axial tomograms through the chest were obtained without intravenous contrast. FINDINGS: Evaluation of mediastinal str uctures is limited without intravenous contrast. There is no significant mediastinal or hilar adenopathy. No significant pleural effusion. The aorta and mediastinal structures show no other significant abnormalities. The visualized lungs are clear.IMPRESSION: 1. No focal consolidation. No other acute abnormalities on this limited noncontrast examination. at 0575 Reported and signed by: LLOYD OGLESBY M.D. Facility ACR Accreditation for [place] - May 2012 CC: Keny Duran MD; Sunday Mendoza NP Technologist: CLAUDIA LUTZ RT(R)(CT) Transcribed Date/Time/By: 12/02/2018 (0551) : By: [email or web address] Orig Print D/T: S: 12/02/2018 (0526) PAGE 1 Signed ReportCBC W/AUTO [id number] 05:44:00 Test Item Value Reference Range Interpretation Comments WHITE BLOOD CELL (test code = 6.2 K/mm3 4.8-10.8 N WBC) RED BLOOD CELL (test code = RBC) 4.61 M/mm3 4.2-5.4 N HEMOGLOBIN (test code = HGB) 13.2 gm/DL 13.5-17.5 L HEMATOCRIT (test code = HCT) 40.9 % 37.1-51.5 N MEAN CELL VOLUME (test code = 88.7 fL 81-99 N MCV) MEAN CELL HGB (test code = MCH) 28.6 pg 27-31 N MEAN CELL HGB CONCETRATION (test 32.3 gm/dL 33-37 L code = MCHC) RED CELL DISTRIBUTION WIDTH (test 13.3 % 11.5-14.5 N code = RDW) PLATELET COUNT (test code = PLT) 144 X10(3) 130-400 N MEAN PLATELET VOLUME (test code = 10.9 fL 9.4-12.4 N MPV) NEUTROPHIL % (test code = NT%) 77.1 % 51.5-79.7 N IMMATURE GRANULOCYTE % (test code 0.300 % 0.108-0.322 N = IG%) LYMPHOCYTE % (test code = LY%) 13.3 % 14-40 L MONOCYTE % (test code = MO%) 8.5 % 4.0-10.2 N EOSINOPHIL % (test code = EO%) 0.6 % 0-4.1 N BASOPHIL % (test code = BA%) 0.2 % 0.1-0.7 N NUCLEATED RBC % (test code = 0 % 0-0 N NRBC%) NEUTROPHIL # (test code = NT#) 4.8 K/mm3 2.5-8.6 N IMMATURE GRANULOCYTE # (test code 0.020 K/mm3 0.0052-0.0224 N = IG#) LYMPHOCYTE # (test code = LY#) 0.8 K/mm3 1.1-3.6 L MONOCYTE # (test code = MO#) 0.5 K/mm3 0.3-0.9 N EOSINOPHIL # (test code = EO#) 0.04 # 0.0-0.4 N BASOPHIL # (test code = BA#) 0.01 K/mm3 0.0-0.2 N NUCLEATED RBC # (test code = 0.00 K/mm3 0.00-0.20 N NRBC#) [id number] 05:10:00 Test Item Value Reference Range Interpretation Comments GLUBED (test code = GLUBED) 201 mg/dL 70-110 H - DUP VEIN [id number] 04:37:00 [place]: [facility] St: [facility]: [facility] 1980 Age/S: 37/M [address] Unit #: [id number] Loc: [address] [place], [place] [address] Phys: Keny Duran MD Acct: [id number] Dis Date: Status: ADM IN PHONE #: [phone] Exam Date: 12/02/2018237 FAX #: [phone] Reason: BLE SWELLING EXAMS: CPT CODE: [id number] DUP VEIN ARAVIND [address] HISTORY: Bilateral swelling TECHNIQUE: Grayscale real-time B-mode imaging with color flow [...] By: [email or web address] Orig Print D/T: S: 12/02/2018 (0446) PAGE 1 Signed Report- XR FOOT 2 VIEWS RT 2018-12-02 00:17:00 FAX: Keny Leonard MD Camps: ER St: ADM FAX: Sunday Mendoza NP [phone] [facility] 1980 Age/S: 37/M [address] [facility] Unit #: [id number] Loc: [facility] [place], [place] [address] Phys: Keny Duran MD Acct: [id number] Dis Date: Status: ADM IN PHONE #: [phone] Exam Date: 12/01/2018 2304 FAX #: [phone] Reason: GREAT TOE ULCER EXAMS: CPT CODE: [id number] XR FO[place] [address] [place] [address] LOCATION: V20 EXAM: - XR FOOT 2 VIEWS LT, - XR FOOT 2 VIEWS RT HISTORY: GREAT TOE ULCER TECHNIQUE: Frontal and lateral views of the bilateral foot COMPARISON: None. FINDINGS: No evidence of acute fracture or dislocation. Joint spaces within normal limits. Mild dorsal soft tissue swelling is [...] JAILENE SWANSON RT (R)(ARRT); ... Transcribed Date/Time/By: 12/02/2018 (0017) :[email or web address] Orig Print D/T: S: 12/02/2018 (0021) Automated exposure control, iterative reconstruction technique, and/oradjustment of mA and/or kV according to patient's size was utilizedfor optimum radiation dose reduction. PAGE 1 Signed Report- XR FOOT 2 VIEWS [id number] 00:17:00 FAX: Keny Leonard MD Camps: ER St: ADM FAX: Sunday Mendoza NP [phone] [facility] 1980 Age/S: 37/M [address] [facility] Unit #: [id number] Loc: [address] [place], [place] [address] Phys: Keny Duran MD Acct: [id number] Dis Date: Status: ADM IN PHONE #: [phone] Exam Date: 12/01/2018 2304 FAX #: [phone] Reason: GREAT TOE ULCER EXAMS: CPT CODE: [id number] XR FO[place] [address] [place] [address] LOCATION: V20 EXAM: - XR FOOT 2 VIEWS LT, - XR FOOT 2 VIEWS RT HISTORY: GREAT TOE ULCER TECHNIQUE: Frontal and lateral views of the bilateral foot COMPARISON: None. FINDINGS: No evidence of acute fracture or dislocation. Joint spaces within normal limits. Mild dorsal soft tissue swelling is [...] Keny Duran MD; Sunday Tinoco Technologist: JAILENE KINGSLEY (R)(ARRT); ... Transcribed Date/Time/By: 12/02/2018 (0017) :[email or web address] Orig Print D/T: S: 12/02/2018 (0021) Automated exposure control, iterative reconstruction technique, and/oradjustment of mA and/or kV according to patient's size was utilizedfor optimum radiation dose reduction. PAGE 1 Signed ReportGLYCOSYLATED HEMOGLOBIN (HA1C) 2018-12-01 22:46:00 Test Item Value Reference Range Interpretation Comments GLYCOSYLATED HEMOGLOBIN (HA1C) (test 9.6 % 4.4-6.4 H code = GLYHGB) MEAN BLOOD GLUCOSE [id number] 22:46:00 Test Item Value Reference Range Interpretation Comments MEAN BLOOD GLUCOSE CALCULATION (test 228.8 code = MBGCALC) URINALYSIS W/O [id number] 21:41:00 Test Item Value Reference Range Interpretation Comments UA COLOR (test code = COLU) LIGHT YELLOW YELLOW UA APPEARANCE (test code = APPU) CLEAR CLEAR UA GLUCOSE DIPSTICK (test code = >=1000 NEGATIVE DGLUU) UA BILIRUBIN DIPSTICK (test code NEGATIVE NEGATIVE = BILU) UA KETONE DIPSTICK (test code = NEGATIVE NEGATIVE KETU) UA SPECIFIC GRAVITY (test code = 1.010 1.000-1.030 N SGU) UA BLOOD DIPSTICK (test code = NEGATIVE NEGATIVE BITA) UA PH DIPSTICK (test code = JULIO) 6.0 5.0-8.5 N UA PROTEIN DIPSTICK (test code = NEGATIVE NEGATIVE PROU) UA UROBILINIOGEN DIPSTICK (test 0.2 EU/DL <=1.0 EU/DL code = URO) UA NITRITE DIPSTICK (test code = NEGATIVE NEGATIVE JAI) UA LEUKOCYTE ESTERASE DIPSTICK NEGATIVE NEGATIVE (test code = LEUU) SOURCE: URINESPECIMEN DESCRIPTION: CMCUA [id number] 21:41:00 Test Item Value Reference Range Interpretation Comments UA WBC (test code = WBCU) 2-5 0-5 UA RBC (test code = RBCU) 0-2 0-5 UA SQUAMOUS CELLS (test code = 5-10 #/lpf NONE SEEN SQU) SOURCE: URINESPECIMEN DESCRIPTION: CMCURINALYSIS W/O [id number] 21:04:00 Test Item Value Reference Range Interpretation Comments UA COLOR (test code = COLU) LIGHT YELLOW YELLOW UA APPEARANCE (test code = APPU) CLEAR CLEAR UA GLUCOSE DIPSTICK (test code = >=1000 NEGATIVE DGLUU) UA BILIRUBIN DIPSTICK (test code NEGATIVE NEGATIVE = BILU) UA KETONE DIPSTICK (test code = NEGATIVE NEGATIVE KETU) UA SPECIFIC GRAVITY (test code = 1.010 1.000-1.030 N SGU) UA BLOOD DIPSTICK (test code = NEGATIVE NEGATIVE BITA) UA PH DIPSTICK (test code = JULIO) 6.0 5.0-8.5 N UA PROTEIN DIPSTICK (test code = NEGATIVE NEGATIVE PROU) UA UROBILINIOGEN DIPSTICK (test 0.2 EU/DL <=1.0 EU/DL code = URO) UA NITRITE DIPSTICK (test code = NEGATIVE NEGATIVE JAI) UA LEUKOCYTE ESTERASE DIPSTICK NEGATIVE NEGATIVE (test code = LEUU) SOURCE: URINESPECIMEN DESCRIPTION: CMCUA [id number] 21:04:00 Test Item Value Reference Range Interpretation Comments UA WBC (test code = WBCU) 0-5 UA RBC (test code = RBCU) 0-5 SOURCE: URINESPECIMEN DESCRIPTION: CMCURINALYSIS W/O [id number] 21:04:00 Test Item Value Reference Range Interpretation Comments UA COLOR (test code = COLU) LIGHT YELLOW YELLOW UA APPEARANCE (test code = APPU) CLEAR CLEAR UA GLUCOSE DIPSTICK (test code = >=1000 NEGATIVE DGLUU) UA BILIRUBIN DIPSTICK (test code NEGATIVE NEGATIVE = BILU) UA KETONE DIPSTICK (test code = NEGATIVE NEGATIVE KETU) UA SPECIFIC GRAVITY (test code = 1.010 1.000-1.030 N SGU) UA BLOOD DIPSTICK (test code = NEGATIVE NEGATIVE BITA) UA PH DIPSTICK (test code = JULIO) 6.0 5.0-8.5 N UA PROTEIN DIPSTICK (test code = NEGATIVE NEGATIVE PROU) UA UROBILINIOGEN DIPSTICK (test 0.2 EU/DL <=1.0 EU/DL code = URO) UA NITRITE DIPSTICK (test code = NEGATIVE NEGATIVE JAI) UA LEUKOCYTE ESTERASE DIPSTICK NEGATIVE NEGATIVE (test code = LEUU) SOURCE: URINESPECIMEN DESCRIPTION: CMCUA [id number] 21:04:00 Test Item Value Reference Range Interpretation Comments UA WBC (test code = WBCU) 0-5 UA RBC (test code = RBCU) 0-5 SOURCE: URINESPECIMEN DESCRIPTION: [facility] [id number] 20:50:00 Test Item Value Reference Range Interpretation Comments POC LACTIC ACID (test code = 1.61 MMOL/L 0.40-2.00 N POCLAC) - XR CHEST 1 [id number] 20:42:00 FAX: Xavier Maguire [phone] Camps: ER St: REG Name[facility] 1980 Age/S: 37/M [address] Unit #: [id number] Loc: .[place], [place] [address] Phys: Xavier Maguire MD Acct: [id number] Dis Date: Status: REG ER PHONE #: [phone] Exam Date: 12/01/20182039 FAX #: [phone] Reason: code sepsis EXAMS: CPT CODE: [id number] XR CHEST 1 V [address] LOCATION: V20 EXAM: - XR CHEST 1 V [...] by DONTRELL DSOUZA M.D. on 12/01/2018 at 2041 Reported and signed by: ANA MARIA Macedo CC: Xavier Maguire MD Technologist: Keerthi Peraza RT(R)CT(ARRT) Transcribed Date/Time/By: 12/01/2018 (2041) :[email or web address] Orig Print D/T: S: 12/01/2018 (2044) Automated exposure control, iterative reconstruction technique, and/oradjustment of mA and/or kV according to patient's size was utilizedfor optimum radiation dose reduction. PAGE 1 Signed ReportHEPATIC FUNCTION [id number] 19:50:00 Test Item Value Reference Range Interpretation Comments TOTAL PROTEIN (test 7.9 g/dL 6.4-8.2 N code = PROT) ALBUMIN (test code = 3.2 g/dL 3.4-5.0 L ALB) GLOBULIN (test code = 4.7 gm/dL 2.3-3.5 H GLOB) ALBUMIN/GLOBULIN 0.7 1.5-2.2 L RATIO (test code = A/G) BILIRUBIN TOTAL (test 0.3 mg/dL 0.0-1.1 N code = BILT) BILIRUBIN DIRECT <0.1 mg/dL 0.05-0.3 N (test code = BILD) BILIRUBIN INDIRECT 0.2 mg/dL 0.0-0.6 N (test code = BILIND) SGOT/AST (test code = 18 U/L 15-37 N Report ing units: AST) International U nits/L SGPT/ALT (test code = 38 U/L 10-30 H Report ing units: ALT) International U nits/L ALKALINE PHOSPHATASE 98 U/L 45-117 N TOTAL (test code = ALKP) [id number] 19:50:00 Test Item Value Reference Range Interpretation Comments LIPASE (test code = 120 U/L 73-393 N Reportin g units: LIP) International U nits/L NT PRO-BRAIN NATRIURETIC [id number] 19:50:00 Test Item Value Reference Range Interpretation Comments NT PRO-BRAIN NATRIURETIC PEPTI (test 18 pg/mL 0-125 N code = PROBNP) [id number] 19:50:00 Test Item Value Reference Range Interpretation Comments TROPONIN-I (test <0.02 ng/mL 0.00-0.05 N <0.05 code = TROPI) Normal0.06 - 0 .39 Consistent with circulating Tro ponin with possible Myocar dial injury.>0.40 Consistent with Myocardial inju ry exten sive enough to confo rm with AMI as defined by WHO. PROCALCITONIN (PCT)2018-12-01 19:50:00 Test Item Value Reference Range Interpretation Comments PROCALCITONIN (PCT) (test code = 0.05 ng/mL 0.00-0.05 N PROCAL) CHEMISTRY 8 [id number] 19:36:00 Test Item Value Reference Range Interpretation Comments IONIZED CALCIUM (test code = 1.15 mmol/L 1.13-1.32 N CAIABG) ISTAT-TCO2 VENOUS (test code = 24 MMOL/L 24-30 N TCO2VP) ISTAT-HEMOGLOBIN (test code = 15.0 G/DL 13.5-17.5 N HBP) ISTAT-HEMATOCRIT (test code = 44 % 44.0-56.0 N HCTP) ISTAT-SODIUM (test code = NAP) 138 MMOL/L 136-145 N ISTAT-POTASSIUM (test code = KP) 4.0 MMOL/L 3.5-5.1 N ISTAT-CHLORIDE (test code = CLP) 100 MMOL/L 98-107 N ISTAT GLUCOSE (test code = GLUP) 342 MG/DL 65-99 H ISTAT-BUN (test code = BUNP) 19 MG/DL 7-18 H BEDSIDE CREATININE (test code = 0.7 MG/DL 0.6-1.0 N CREATBED) HEPATIC FUNCTION [id number] 19:36:00 Test Item Value Reference Range Interpretation Comments TOTAL PROTEIN (test 7.9 g/dL 6.4-8.2 N code = PROT) ALBUMIN (test code = 3.2 g/dL 3.4-5.0 L ALB) GLOBULIN (test code = 4.7 gm/dL 2.3-3.5 H GLOB) ALBUMIN/GLOBULIN 0.7 1.5-2.2 L RATIO (test code = A/G) BILIRUBIN TOTAL (test 0.3 mg/dL 0.0-1.1 N code = BILT) BILIRUBIN DIRECT <0.1 mg/dL 0.05-0.3 N (test code = BILD) BILIRUBIN INDIRECT 0.2 mg/dL 0.0-0.6 N (test code = BILIND) SGOT/AST (test code = 18 U/L 15-37 N Report ing units: AST) International U nits/L SGPT/ALT (test code = 38 U/L 10-30 H Report ing units: ALT) International U nits/L ALKALINE PHOSPHATASE 98 U/L 45-117 N TOTAL (test code = ALKP) [id number] 19:36:00 Test Item Value Reference Range Interpretation Comments LIPASE (test code = 120 U/L 73-393 N Reportin g units: LIP) International U nits/L NT PRO-BRAIN NATRIURETIC [id number] 19:36:00 Test Item Value Reference Range Interpretation Comments NT PRO-BRAIN NATRIURETIC PEPTI (test 18 pg/mL 0-125 N code = PROBNP) [id number] 19:36:00 Test Item Value Reference Range Interpretation Comments TROPONIN-I (test <0.02 ng/mL 0.00-0.05 N <0.05 code = TROPI) Normal0.06 - 0 .39 Consistent with circulating Tro ponin with possible Myocar dial injury.>0.40 Consistent with Myocardial inju ry exten sive enough to confo rm with AMI as defined by WHO. PROCALCITONIN (PCT)2018-12-01 19:36:00 Test Item Value Reference Range Interpretation Comments PROCALCITONIN (PCT) (test code = ng/mL 0.00-0.05 PROCAL) PROTHROMBIN [id number] 19:25:00 Test Item Value Reference Interpretation Comments Range PROTHROMBIN TIME 10.9 SECONDS 9.9-11.6 N PATIENT (test code = PTP) INTERNATIONAL 1.06 0.93-1.2 N Recommended Th erapeutic NORMAL RATIO (test PT Ratios For Oral code = INR) AnticoagualantT herapy. CONDITION INT'L NORMALIZED PT R --------- ------ Prophylaxis of venous thrombosis 2.0 - 3.0in hig h risk medical or surgicalpatient s, treatment of venousthrombosi s, prevention of e mbolism. Prevention of r ecurrent embolism, 3.0 - 4.5or treatme nt of patients with mechanicalprost hetic heart valves. IS THE PATIENT ON ANY ANTICOAGULANTS? NTHROMBOPLASTIN TIME [id number] 19:25:00 Test Item Value Reference Range Interpretation Comments THROMBOPLASTIN TIME PARTIAL 27.0 SECONDS 23.0-32.0 N (test code = PTT) IS THE PATIENT ON ANY ANTICOAGULANTS? NPOC LACTIC [id number] 19:11:00 Test Item Value Reference Range Interpretation Comments POC LACTIC ACID 2.68 MMOL/L 0.40-2.00 H RESULTS CALL ED TO [] (test code = [place]) [place] [address]/01/18.NMI-JESUS MEZA L VALUE READ BA CK BY NURSE AND VERIF IED BY TECH? []REFEREN CE RANGES FOR: 1) ARTERIAL SAMPLE (0.5-1.6MMOL/L) 2) SPINAL FLUID (0.6-2.2MMOL/L) CBC W/AUTO [id number] 19:08:00 Test Item Value Reference Range Interpretation Comments WHITE BLOOD CELL (test code = 8.6 K/mm3 4.8-10.8 N WBC) RED BLOOD CELL (test code = RBC) 4.82 M/mm3 4.2-5.4 N HEMOGLOBIN (test code = HGB) 14.2 gm/DL 13.5-17.5 N HEMATOCRIT (test code = HCT) 41.7 % 37.1-51.5 N MEAN CELL VOLUME (test code = 86.5 fL 81-99 N MCV) MEAN CELL HGB (test code = MCH) 29.5 pg 27-31 N MEAN CELL HGB CONCETRATION (test 34.1 gm/dL 33-37 N code = MCHC) RED CELL DISTRIBUTION WIDTH (test 13.2 % 11.5-14.5 N code = RDW) PLATELET COUNT (test code = PLT) 177 X10(3) 130-400 N MEAN PLATELET VOLUME (test code = 11.0 fL 9.4-12.4 N MPV) NEUTROPHIL % (test code = NT%) 81.9 % 51.5-79.7 H IMMATURE GRANULOCYTE % (test code 0.200 % 0.108-0.322 N = IG%) LYMPHOCYTE % (test code = LY%) 11.3 % 14-40 L MONOCYTE % (test code = MO%) 5.7 % 4.0-10.2 N EOSINOPHIL % (test code = EO%) 0.6 % 0-4.1 N BASOPHIL % (test code = BA%) 0.3 % 0.1-0.7 N NUCLEATED RBC % (test code = 0 % 0-0 N NRBC%) NEUTROPHIL # (test code = NT#) 7.0 K/mm3 2.5-8.6 N IMMATURE GRANULOCYTE # (test code 0.020 K/mm3 0.0052-0.0224 N = IG#) LYMPHOCYTE # (test code = LY#) 1.0 K/mm3 1.1-3.6 L MONOCYTE # (test code = MO#) 0.5 K/mm3 0.3-0.9 N EOSINOPHIL # (test code = EO#) 0.05 # 0.0-0.4 N BASOPHIL # (test code = BA#) 0.03 K/mm3 0.0-0.2 N NUCLEATED RBC # (test code = 0.00 K/mm3 0.00-0.20 N [id number]
[2020-05-25] MEDS ORDERED: ONDANSETRON 4 MG/2 ML VIAL ONE ×2 (11:35→16:00)
[2020-05-25] MEDS ORDERED: NA CHLORIDE 0.9% 100 ML IV ONE (11:35)
[2020-05-25] MEDS ORDERED: ACETAMINOPHEN 500 MG TAB ONE (11:35)
[2020-05-25] MEDS ORDERED: METHOCARBAMOL 1,000 MG/10 ML VIAL IV ONE (11:35)
[2020-05-25] MEDS ORDERED: NA CHLORIDE 0.9% 4,000 ML ONE (11:35)
[2020-05-25 12:10] LABS: Absolute Lymphocytes (CBC) 0.7 K/uL (0.7-4.9); Basophils % 0.3 % (0-1.3); Hematocrit 42.4 % (39.6-49.0); Lymphocytes % 4.9 % (15.3-44.8); MPV 9.5 fL (7.6-11.3); RBC Red Blood Cell Count 4.95 M/uL (4.33-5.43)
--- NOTE | 2020-05-25 12:31 | RAD REPORT ---
EXAM DESCRIPTION: RAD - Chest Single View - 05/25/2020 12:06 pm CLINICAL HISTORY: FEVER COMPARISON: Portable August 2016 TECHNIQUE: AP portable chest image was obtained 05/25/2020 12:06 pm . FINDINGS: Lung volumes are low. Patient is in a lordotic positioning. Large overlying body habitus s oft tissues limit the examination. No peripheral mass or consolidation identifiable. No significant failure or volume overload. Heart and vasculature are normal. No measurable pleural effusion and no pneumothorax. No acute bony abnormality seen. No acute aortic findings suspected. IMPRESSION: Limited portable study showing no acute cardiopulmonary finding.
[2020-05-25 12:33] LABS: ALT/SGPT 34 U/L (12-78); AST/SGOT 15 U/L (15-37); Albumin 3.6 g/dL (3.4-5.0); Alkaline Phosphatase 89 U/L (45-117); Amylase 30 U/L (25-115); BUN Blood Urea Nitrogen 17 mg/dL (7-18); Bicarbonate 25 mmol/L (21-32); Bilirubin Direct 0.1 mg/dL (0-0.2); Bilirubin Total 0.5 mg/dL (0.2-1.0); CKMB Creatine Kinase MB < 1.0 ng/mL (0.3-3.6); Creatine Phosphokinase 140 U/L (39-308); Glucose Level 359 mg/dL (74-106); Lipase 111 U/L (73-393); Protein, Total 8.1 g/dL (6.4-8.2); Sodium Level 134 mmol/L (136-145); Troponin (Emerg Dept Use Only) < 0.02 ng/mL (0.0-0.045)
[2020-05-25 13:08] LABS: Urine White Blood Cell Casts OK
[2020-05-25 13:09] LABS: Blood Morphology Comment NOT SEEN (NOT SEEN); Platelet Estimate ADEQ
[2020-05-25 13:10] LABS: Urine Glucose 2+ (NEG)
[2020-05-25 13:11] LABS: Urine Blood NEGATIVE (NEG); Urine Protein NEGATIVE (NEG); Urine pH 5.5 (5.0-7.0)
[2020-05-25 13:20] LABS: Urine Bacteria <20 /HPF (NONE SEEN); Urine Culture Reflex Order NOT NEEDED; Urine RBC NONE SEEN /HPF (NONE SEEN)
--- NOTE | 2020-05-25 13:42 | EDPHYS ---
Physician Documentation [facility] Name: Addy Quintana Jr Age: 39 yrs Sex: Male : 1980 Arrival Date: 05/25/2020 Time: 10:25 Bed 3 Private MD: ED Physician Bg Mirza HPI: 05/26 14:37 This 39 yrs old Male presents to ER via Wheelchair with complaints of kdr Vomiting, Leg Pain, Headache, Shortness Of Breath. 14:37 The patient presents to the emergency department with nausea, that is moderate, kdr vomiting, that is intermittent. Onset: The symptoms/episode began/occurred just prior to arrival, this morning. Possible causes: unknown. The symptoms are aggravated by movement, The symptoms are alleviated by remaining still. Associated signs and symptoms: Pertinent positives: nausea, vomiting. Severity of symptoms: At their worst the symptoms were moderate severe incapacitating in the emergency department the symptoms have improved mildly. The patient has not experienced similar symptoms in the past. The patient has not recently seen a physician. Historical: - Allergies: 05/25 10:49 VANCOMYCIN AND DERIVATIVES; iw - Home Meds: 10:49 gabapentin 600 mg Oral tab 3 times per day [Active]; metformin 1,000 mg Oral tab 1 tab iw 2 times per day [Active]; - PMHx: 10:49 Hypertension; neuropathy; Diabetes - NIDDM; iw - PSHx: 10:49 legs; iw - Immunization history:: Adult Immunizations. - Social history:: Smoking status: Patient reports the use of cigarette tobacco products, denies chronic smoking, but will smoke occasionally. ROS: 05/26 14:37 Constitutional: Negative for fever, chills, and weight loss, Eyes: Negative for injury, kdr pain, redness, and discharge, Neck: Negative for injury, pain, and swelling, Cardiovascular: Negative for chest pain, palpitations, and edema, Respiratory: Negative for shortness of breath, cough, wheezing, and pleuritic chest pain, Back: Negative for injury and pain, : Negative for injury, bleeding, discharge, and swelling, Skin: Negative for injury, rash, and discoloration, Neuro: Negative for headache, weakness, numbness, tingling, and seizure activity. Psych: Negative for depression, anxiety, suicide ideation, homicidal ideation, and hallucinations, Allergy/Immunology: Negative for hives, rash, and allergies, Endocrine: Negative for neck swelling, polydipsia, polyuria, polyphagia, and marked weight changes, Hematologic/Lymphatic: Negative for swollen nodes, abnormal bleeding, and unusual bruising. Abdomen/GI: Positive for abdominal pain, nausea and vomiting, Negative for diarrhea, constipation, abdominal cramps, abdominal distension. MS/extremity: Positive for pain, swelling, tenderness, of the right calf. Exam: 05/25 19:20 ECG was reviewed by the Attending Physician. kdr 05/26 14:37 Constitutional: This is a well developed, well nourished patient who is awake, alert, kdr and in mild distress. Head/Face: Normocephalic, atraumatic. Eyes: Pupils equal round and reactive to light, extra-ocular motions intact. Lids and lashes normal. Conjunctiva and sclera are non-icteric and not injected. Cornea within normal limits. Periorbital areas with no swelling, redness, or edema. Neck: Trachea midline, no thyromegaly or masses palpated, and no cervical lymphadenopathy. Supple, full range of motion without nuchal rigidity, or vertebral point tenderness. No Meningismus. Chest/axilla: Normal chest wall appearance and motion. Nontender with no deformity. No lesions are appreciated. Cardiovascular: Regular rate and rhythm with a normal S1 and S2. No gallops, murmurs, or rubs. Normal PMI, no JVD. No pulse deficits. Respiratory: Lungs have equal breath sounds bilaterally, clear to auscultation and percussion. No rales, rhonchi or wheezes noted. No increased work of breathing, no retractions or nasal flaring. Back: No spinal tenderness. No costovertebral tenderness. Full range of motion. Skin: Warm, dry with normal turgor. Normal color with no rashes, no lesions, and no evidence of cellulitis. MS/ Extremity: Pulses equal, no cyanosis. Neurovascular intact. Full, normal range of motion. Neuro: Awake and alert, GCS 15, oriented to person, place, time, and situation. Cranial nerves II-XII grossly intact. Motor strength 5/5 in all extremities. Sensory grossly intact. Cerebellar exam normal. Normal gait. Psych: Awake, alert, with orientation to person, place and time. Behavior, mood, and affect are within normal limits. Abdomen/GI: Inspection: abdomen appears normal, obese Bowel sounds: active, Palpation: soft, mild abdominal tenderness, in all quadrants. Vital Signs: 05/25 10:45 BP 168 / 112; Pulse 126; Resp 18 S; Temp 100.1; Pulse Ox 97% on R/A; Weight 151.95 kg; iw Height 5 ft. 7 in. (170.18 cm); Pain 9/10; 11:15 BP 134 / 73; Pulse 172; Resp 24; Pulse Ox 99% ; Pain 8/10; hb 12:15 BP 146 / 70; Pulse 106; Resp 25; Pulse Ox 99% ; sv 13:30 BP 116 / 56; Pulse 95; Resp 24; Pulse Ox 100% on R/A; hb 14:45 BP 112 / 70; Pulse 90; Resp 20; Pulse Ox 100% on R/A; hb 15:45 BP 105 / 71; Pulse 89; Resp 21; Temp 99.7; Pulse Ox 100% on R/A; Pain 10/10; hb 16:45 BP 108 / 68; Pulse 88; Resp 19; Pulse Ox 99% on R/A; hb 17:30 BP 136 / 62; Pulse 105; Resp 16; Temp 99.4; Pulse Ox 100% on R/A; Pain 4/10; hb 10:45 Body Mass Index 52.47 (151.95 kg, 170.18 cm) iw MDM: 13:41 Patient medically screened. kdr 05/26 14:37 Data reviewed: vital signs, nurses notes, lab test result(s), radiologic studies. kdr Counseling: I had a detailed discussion with the patient and/or guardian regarding: the historical points, exam findings, and any diagnostic results supporting the discharge/admit diagnosis, lab results, radiology results, the need for further work-up and treatment in the hospital. 05/25 11:11 Order name: Amylase, Serum; Complete Time: 13:27 kdr 05/25 11:11 Order name: Basic Metabolic Panel; Complete Time: 13:27 kdr 05/25 11:11 Order name: Blood Culture Adult (2) kdr 05/25 11:11 Order name: CBC with Diff; Complete Time: 13:27 kdr 05/25 11:11 Order name: Ckmb; Complete Time: 13:27 kdr 05/25 11:11 Order name: CPK; Complete Time: 13:27 [facility] 05/25 11:11 Order name: Lactate; Complete Time: 13: [facility] 05/25 11:11 Order name: LFT's; Complete Time: 13: [facility] 05/25 11:11 Order name: Lipase; Complete Time: 13: [facility] 05/25 11:11 Order name: Procalcitonin; Complete Time: 13:27 [facility] 05/25 11:11 Order name: Protime (+inr); Complete Time: 13: [facility] 05/25 11:11 Order name: Ptt, Activated; Complete Time: 13: [facility] 05/25 11:11 Order name: Troponin (emerg Dept Use Only); Complete Time: 13: [facility] 05/25 11:11 Order name: Urine Microscopic Only; Complete Time: 13: [facility] 05/25 11:11 Order name: Chest Single View XRAY; Complete Time: 13: [facility] 05/25 11:11 Order name: Accucheck; Complete Time: 12: [facility] 05/25 11:11 Order name: Cardiac monitoring; Complete Time: 12: [facility] 05/25 12:16 Order name: CBC Smear Scan; Complete Time: 13:27 [facility] 05/25 12:38 Order name: Urine Dipstick--Ancillary (enter results); Complete Time: 13:27 05/25 14:11 Order name: EKG Electrocardiogram [facility] 05/25 15:22 Order name: SARS-COV-2 RT PCR; Complete Time: 15:48 [facility] 05/25 15:47 Order name: CT Head Brain wo Cont; Complete Time: 14:35 [facility] 05/25 16:01 Order name: Lactate Sepsis 2 HR Follow-up; Complete Time: 14:35 [facility] 05/25 11:11 Order name: EKG - Nurse/Tech; Complete Time: 12:08 [facility] 05/25 11:11 Order name: IV Saline Lock - Large Bore; Complete Time: 12: [facility] 05/25 11:11 Order name: Labs collected and sent; Complete Time: 12: [facility] 05/25 11:11 Order name: O2 Per Protocol; Complete Time: 12:08 [facility] 05/25 11:11 Order name: O2 Sat Monitoring; Complete Time: 12:08 [facility] 05/25 11:11 Order name: Urine Dipstick-Ancillary (obtain specimen); Complete Time: 12:08 [facility] EC/19 19:20 Rate is 109 beats/min. Rhythm is regular, Sinus tachycardia with No ectopy. Left axis kdr deviation noted. IL interval is normal. QRS interval is normal. QT interval is normal. Clinical impression: NSR w/ Non-specific ST/T Changes and Sinus tachycardia. Administered Medications: 11:30 Drug: Tylenol 1000 mg Route: PO; hb 12:30 Follow up: Response: No adverse reaction hb 11:30 Drug: Robaxin 1 grams Route: IVPB; Infused Over: 1 hrs; Site: left antecubital; hb 12:30 Follow up: Response: No adverse reaction; IV Status: Completed infusion; IV Intake: hb 100ml 11:30 Drug: Zofran (Ondansetron) 4 mg Route: IVP; Site: left antecubital; hb 12:00 Follow up: Response: No adverse reaction hb 11:32 Drug: NS 0.9% (30 ml/kg) 30 ml/kg Route: IV; Rate: bolus; Site: left antecubital; hb 12:30 Follow up: Response: No adverse reaction; IV Status: Completed infusion; IV Intake: hb 4600ml 15:52 Drug: morphine 4 mg Route: IVP; Site: left antecubital; hb 16:30 Follow up: Response: No adverse reaction hb 15:53 Drug: Zofran (Ondansetron) 4 mg Route: IVP; Site: left antecubital; hb 16:30 Follow up: Response: No adverse reaction hb Disposition: 05/25/20 13:41 Hospitalization ordered by Fam Raymundo for Observation. Preliminary diagnosis are Vomiting, Fever, unspecified, Diarrhea, unspecified, Tachycardia, unspecified, Diabetes mellitus due to underlying condition with unspecified complications. - Bed requested for Telemetry/MedSurg (observation). - Status is Observation. hb - Condition is Fair. - Problem is new. - Symptoms have improved. Signatures: Dispatcher [employer] EDMS Liz Doan RN RN kl Rittger, Kevin, MD MD kdr Williams, Irene, RN RN iw Baxter, Heather, RN RN hb Corrections: (The following items were deleted from the chart) 14:25 11:12 CORONAVIRUS+MR.LAB.BRZ ordered. EDMS EDMS 17:34 13:41 Hospitalization Ordered by Fam Raymundo for Observation. Preliminary diagnosis kl is Vomiting; Fever, unspecified; Diarrhea, unspecified; Tachycardia, unspecified; Diabetes mellitus due to underlying condition with unspecified complications. Bed requested for Telemetry/MedSurg (observation). Status is Observation. Condition is Fair. Problem is new. Symptoms have improved. kdr 18:32 17:34 05/25/2020 13:41 Hospitalization Ordered by Fam Raymundo for Observation. hb Preliminary diagnosis is Vomiting; Fever, unspecified; Diarrhea, unspecified; Tachycardia, unspecified; Diabetes mellitus due to underlying condition with unspecified complications. Bed requested for Telemetry/MedSurg (observation). Status is Observation. Condition is Fair. Problem is new. Symptoms have improved. kl
--- NOTE | 2020-05-25 13:42 | ER ---
Nurse's Notes [facility] Name: Addy Quintana Jr Age: 39 yrs Sex: Male : 1980 Arrival Date: 05/25/2020 Time: 10:25 Bed 3 Private MD: Diagnosis: Vomiting;Fever, unspecified;Diarrhea, unspecified;Tachycardia, unspecified;Diabetes mellitus due to underlying condition with unspecified complications Presentation: 05/25 10:45 Chief complaint: Patient states: cramping to right calf since 2;30 am, tried to go to iw work and got nauseous and started vomiting. Coronavirus screen: fever, vomiting. Client presents with at least one sign or symptom that may indicate coronavirus-19. Standard/surgical mask placed on the client. Provider contacted for isolation considerations. Ebola Screen: Patient negative for fever greater than or equal to 101.5 degrees Fahrenheit, and additional compatible Ebola Virus Disease symptoms Patient denies exposure to infectious person. Patient denies travel to an Ebola-affected area in the 21 days before illness onset. No symptoms or risks identified at this time. Initial Sepsis Screen: Does the patient meet any 2 criteria? HR > 90 bpm. Does the patient have a suspected source of infection? No. Patient's initial sepsis screen is negative. Risk Assessment: Do you want to hurt yourself or someone else? Patient reports no desire to harm self or others. Onset of symptoms was May 25, 2020. 10:45 Method Of Arrival: Wheelchair iw 10:45 Acuity: FLORENCIO 2 iw Historical: - Allergies: 10:49 VANCOMYCIN AND DERIVATIVES; iw - Home Meds: 10:49 gabapentin 600 mg Oral tab 3 times per day [Active]; metformin 1,000 mg Oral tab 1 tab iw 2 times per day [Active]; - PMHx: 10:49 Hypertension; neuropathy; Diabetes - NIDDM; iw - PSHx: 10:49 legs; iw - Immunization history:: Adult Immunizations. - Social history:: Smoking status: Patient reports the use of cigarette tobacco products, denies chronic smoking, but will smoke occasionally. Screenin:08 Abuse screen: Denies threats or abuse. Denies injuries from another. Nutritional hb screening: No deficits noted. Tuberculosis screening: No symptoms or risk factors identified. Fall Risk None identified. Assessment: 11:15 General: Appears in no apparent distress. uncomfortable, Behavior is calm, cooperative. hb Pain: Pain currently is 8 out of 10 on a pain scale. Neuro: Level of Consciousness is awake, alert, obeys commands, Oriented to person, place, time, situation. Cardiovascular: Heart tones S1 S2 present Capillary refill < 3 seconds Patient's skin is warm and dry. Respiratory: Airway is patent Respiratory effort is mildly labored Respiratory pattern is tachypnea. GI: Abdomen is round Bowel sounds present X 4 quads. Abd is soft and non tender X 4 quads. : No signs and/or symptoms were reported regarding the genitourinary system. EENT: No signs and/or symptoms were reported regarding the EENT system. Derm: Skin is pink, warm \T\ dry. Musculoskeletal: Reports pain all over. 12:30 Reassessment: Patient appears in no apparent distress at this time. No changes from previously documented assessment. Patient and/or family updated on plan of care and expected duration. Pain level reassessed. 13:30 Reassessment: Patient appears in no apparent distress at this time. Patient and/or hb family updated on plan of care and expected duration. Pain level reassessed. Resting with eyes closed, respirations remain mildly labored. 14:30 Reassessment: Patient appears in no apparent distress at this time. Patient and/or hb family updated on plan of care and expected duration. Pain level reassessed. Patient is alert, oriented x 3, equal unlabored respirations, skin warm/dry/pink. 15:30 Reassessment: Patient appears in no apparent distress at this time. Patient is alert, hb oriented x 3, equal unlabored respirations, skin warm/dry/pink. Admission ordered, awaiting bed assignment at this time. 15:42 Reassessment: Dr. Raymundo at bedside. 16:00 Reassessment: Patient appears in no apparent distress at this time. Patient and/or hb family updated on plan of care and expected duration. Pain level reassessed. Patient is alert, oriented x 3, equal unlabored respirations, skin warm/dry/pink. 17:00 Reassessment: Patient appears in no apparent distress at this time. Patient and/or hb family updated on plan of care and expected duration. Pain level reassessed. Patient is alert, oriented x 3, equal unlabored respirations, skin warm/dry/pink. Vital Signs: 10:45 BP 168 / 112; Pulse 126; Resp 18 S; Temp 100.1; Pulse Ox 97% on R/A; Weight 151.95 kg; iw Height 5 ft. 7 in. (170.18 cm); Pain 9/10; 11:15 BP 134 / 73; Pulse 172; Resp 24; Pulse Ox 99% ; Pain 8/10; hb 12:15 BP 146 / 70; Pulse 106; Resp 25; Pulse Ox 99% ; sv 13:30 BP 116 / 56; Pulse 95; Resp 24; Pulse Ox 100% on R/A; hb 14:45 BP 112 / 70; Pulse 90; Resp 20; Pulse Ox 100% on R/A; hb 15:45 BP 105 / 71; Pulse 89; Resp 21; Temp 99.7; Pulse Ox 100% on R/A; Pain 10/10; hb 16:45 BP 108 / 68; Pulse 88; Resp 19; Pulse Ox 99% on R/A; hb 17:30 BP 136 / 62; Pulse 105; Resp 16; Temp 99.4; Pulse Ox 100% on R/A; Pain 4/10; hb 10:45 Body Mass Index 52.47 (151.95 kg, 170.18 cm) iw ED Course: 10:25 Patient arrived in ED. rg4 10:48 Triage completed. iw 10:49 Arm band placed on. iw 11:01 Bg Mirza MD is Attending Physician. kdr 11:11 Alison Navas, RN is Primary Nurse. hb 11:15 Patient has correct armband on for positive identification. Placed in gown. Bed in low hb position. Call light in reach. Side rails up X 1. 11:30 Inserted saline lock: 18 gauge in left antecubital area, using aseptic technique. Blood hb collected. 12:07 Chest Single View XRAY In Process Unspecified. EDMS 13:37 Fam Raymundo is Hospitalizing Provider. kdr 16:00 Repeat lab(s) drawn. by me, sent to lab. dh3 16:02 CT Head Brain wo Cont In Process Unspecified. EDMS Administered Medications: 11:30 Drug: Tylenol 1000 mg Route: PO; hb 12:30 Follow up: Response: No adverse reaction hb 11:30 Drug: Robaxin 1 grams Route: IVPB; Infused Over: 1 hrs; Site: left antecubital; hb 12:30 Follow up: Response: No adverse reaction; IV Status: Completed infusion; IV Intake: hb 100ml 11:30 Drug: Zofran (Ondansetron) 4 mg Route: IVP; Site: left antecubital; hb 12:00 Follow up: Response: No adverse reaction hb 11:32 Drug: NS 0.9% (30 ml/kg) 30 ml/kg Route: IV; Rate: bolus; Site: left antecubital; hb 12:30 Follow up: Response: No adverse reaction; IV Status: Completed infusion; IV Intake: hb 4600ml 15:52 Drug: morphine 4 mg Route: IVP; Site: left antecubital; hb 16:30 Follow up: Response: No adverse reaction hb 15:53 Drug: Zofran (Ondansetron) 4 mg Route: IVP; Site: left antecubital; hb 16:30 Follow up: Response: No adverse reaction hb Intake: 12:30 IV: 100ml; Total: 100ml. hb 12:30 IV: 4600ml; Total: 4700ml. hb Outcome: 13:41 Decision to Hospitalize by Provider. kdr 18:32 Patient left the ED. hb Signatures: Dispatcher [employer] Marta Morrow RN GÓMEZ Bg Mirza MD MD kdr Williams, Irene, RN RN Alison Navas RN RN hb Garcia, Rubi rg4 Raquel Saavedra 3 Corrections: (The following items were deleted from the chart) 10:48 10:45 Acuity: FLORENCIO 3 [facility]
[2020-05-25] MEDS ORDERED: MORPHINE 4 MG/ML SYR ONE (16:00)
--- NOTE | 2020-05-25 16:10 | RAD REPORT ---
EXAM DESCRIPTION: CT - Head Brain Wo Cont - 05/25/2020 4:02 pm CLINICAL HISTORY: HEADACHE Headache, drowsiness COMPARISON: No comparisons TECHNIQUE: All CT scans are performed using dose optimization technique as appropriate and may inclu de automated exposure control or mA/KV adjustment according to patient size. FINDINGS: No intracranial hemorrhage, hydrocephalus or extra-axial fluid collection.No areas of brai n edema or evidence of midline shift. The paranasal sinuses and mastoids are clear. The calvarium is intact. IMPRESSION: No acute intracranial abnormality.
--- NOTE | 2020-05-25 16:27 | P.HP ---
Certification for Inpatient Patient admitted to: Observation With expected LOS: <2 Midnights Practitioner: I am a practitioner with admitting privileges, knowledge of patient current condition, hospital course, and medical plan of care. Services: Services provided to patient in accordance with Admission requirements found in Title 42 Section 412.3 of the Code of Federal Regulations Patient History Date of Service: 05/25/20 Reason for admission: Leg cramps History of Present Illness: 39-year-old morbidly obese gentleman with a history of diabetes presented to the emergency department with a complaint of sudden onset of leg cramps. Patient then developed generalized body pains with associated nausea and vomiting and fever. He stated he vomited 4 times. Also reports some abdominal pain, no diarrhea. He had low-grade fever with a temperature of 100.1 in the ED. Blood work shows some leukocytosis. Patient was tachycardic, heart rate was as high as 170 at a point in the ED. He meets criteria for sepsis. Patient Brady 19 test was negative. Chest x-ray shows no acute disease. He is placed under observation for further management. Allergies vancomycin Allergy (Severe, Verified 11/25/14 14:53) Hives/Rash Home Medications: Gabapentin [Neurontin] 600 mg PO BID 02/10/15 Buspirone HCl [Buspar] 10 mg PO TID 02/09/19 Ibuprofen [Ibu] 600 mg PO Q6HP PRN 02/09/19 Metformin HCl [Glucophage] 1,000 mg PO BIDWM 02/09/19 Insulin 70/30 NPH/Reg Human [Novolin 70/30*] 40 units SQ BIDWM 10/15/19 Levofloxacin [Levaquin] 500 mg PO DAILY #45 tablet 10/16/19 Mupirocin Oint [Bactroban 2% Ointment] 15 gm TP BID 30 Days #3 tube 10/16/19 Smz./Tmp. [Bactrim Ds 800 MG/160 MG] 1 tab PO BID #90 tab 10/16/19 - Past Medical/Surgical History Diabetic: Yes -: Diabetes -: diabetic ulcers -: neuropathy -: sleep apnea -: DVT R leg -: vericose veins -: lymphedema -: rhabdomyolysis -: HTN -: jarvis lower leg surgery: broke and straightened -: debridement bilat great toes -: BLE vein surgery -: tonsillectomy - Family History Father -: Diabetes Mother -: Diabetes - Social History Smoking Status: Current some day smoker Alcohol use: Yes CD- Drugs: No Caffeine use: Yes Review of Systems Other: Except as documented, all other systems reviewed and negative. Physical Examination - Physical Exam General: Alert, In no apparent distress, Oriented x3 HEENT: PERRLA, Mucous membr. moist/pink, Sclerae nonicteric Neck: Supple, JVD not distended Respiratory: Clear to auscultation bilaterally, Normal air movement Cardiovascular: No edema, Regular rate/rhythm, Normal S1 S2, No murmurs Gastrointestinal: Normal bowel sounds, Soft and benign, Non-distended, No tenderness Musculoskeletal: No swelling, No erythema, Other (Right calf tenderness) Integumentary: No rashes, No erythema Neurological: Normal strength at 5/5 x4 extr, Cranial nerves 3-12 intact - Studies Laboratory Data (last 24 hrs) 05/25/20 11:45: PT 11.8, INR 1.00, APTT 30.4 05/25/20 11:45: WBC 13.9 H, Hgb 14.4, Hct 42.4, Plt Count 167 05/25/20 11:45: Sodium 134 L, Potassium 4.0, BUN 17, Creatinine 1.08, Glucose 359 H, Total Bilirubin 0.5, AST 15, ALT 34, Alkaline Phosphatase 89, Amylase 30, Lipase 111 Assessment and Plan - Problems (Diagnosis) (1) Sepsis Current Visit: Yes Status: Acute (2) Leg cramping Current Visit: Yes Status: Acute (3) Diabetes mellitus Onset Date: 07/22/14 Current Visit: No Status: Acute Qualifiers: Diabetes mellitus type: type 2 Diabetes mellitus detention insulin use: with detention use Diabetes mellitus complication status: with skin complications Diabetes mellitus complication detail: with foot ulcer Qualified Code(s): E11.621 - Type 2 diabetes mellitus with foot ulcer; L97.509 - Non-pressure chronic ulcer of other part of unspecified foot with unspecified severity; Z79.4 - watermelon inspector (current) use of insulin (4) Morbid obesity Onset Date: 07/22/14 Current Visit: No Status: Acute - Plan Place under observation. Pro calcitonin are negative. Lactic acid was initially elevated but normalized with IV hydration. Start IV Levaquin. Hydrate with IV normal saline. Follow blood cultures. UA: No evidence of UTI. Chest x-ray: No infiltrate. COVID 19 is negative I suspect viral gastroenteritis. Supportive measures. Insulin sliding scale for glucose management. - Advance Directives Does patient have a Living Will: No Does patient have a Durable POA for Healthcare: No
[2020-05-25] MEDS ORDERED: ONDANSETRON 4 MG/2 ML VIAL IV PRN (17:54)
[2020-05-25] MEDS ORDERED: Levofloxacin 750mg IV 750 MG/150 ML BAG IV SCH (17:54)
[2020-05-25] MEDS: INSULIN -REGULAR HUMAN 50 UNIT/0.5 ML ML SQ SCH (18:45)
[2020-05-25] MEDS: NA CHLORIDE 0.9% 1,000 ML IV SCH (18:46)
[2020-05-25] MEDS ORDERED: methocarbamoL 500 MG TAB PO PRN (19:50)
[2020-05-25] MEDS: ACETAMINOPHEN 500 MG TAB PO PRN (20:32)
[2020-05-25] MEDS ORDERED: HYDROCODONE/APAP 7.5/325 MG TAB PO PRN ×2 (21:28→22:55)
[2020-05-25 23:06] VITALS: O2SAT 96
[2020-05-25] MEDS: MORPHINE 2 MG/ML SYR IV PRN (23:42)
[2020-05-26] MEDS: NA CHLORIDE 0.9% 1,000 ML IV SCH ×2 (03:54→08:32)
[2020-05-26] MEDS: MORPHINE 2 MG/ML SYR IV PRN ×2 (04:25→08:50)
[2020-05-26 04:29] LABS: Basophils % 0.3 % (0-1.3); Hematocrit 35.7 % (39.6-49.0); Lymphocytes % 17.6 % (15.3-44.8); MPV 9.7 fL (7.6-11.3); RBC Red Blood Cell Count 4.11 M/uL (4.33-5.43)
[2020-05-26] MEDS: ACETAMINOPHEN 500 MG TAB PO PRN (04:31)
[2020-05-26 04:42] LABS: BUN Blood Urea Nitrogen 15 mg/dL (7-18); Bicarbonate 29 mmol/L (21-32); Glucose Level 304 mg/dL (74-106); Magnesium 1.8 mg/dL (1.8-2.4); Phosphorus 2.8 mg/dL (2.5-4.9); Potassium 3.9 mmol/L (3.5-5.1); Sodium Level 137 mmol/L (136-145)
[2020-05-26] MEDS: INSULIN -REGULAR HUMAN 50 UNIT/0.5 ML ML SQ SCH ×2 (08:34→11:49)
--- NOTE | 2020-05-26 08:42 | EKG ---
Test Date: 2020-05-25 Test Time: 11:51:36 Marketing Intelligence Manager: HB MEASUREMENT RESULTS: Intervals: Rate: 109 KY: 142 QRSD: 88 QT: 310 QTc: 417 [place]: P: 43 KY: 142 QRS: -16 T: 22 INTERPRETIVE STATEMENTS: Sinus tachycardia Otherwise normal ECG Compared to ECG 08/07/2016 19:17:28 Sinus rhythm no longer present Electronically Signed On 05-26-20 08:38:32 CDT by Edy Levy
[2020-05-26] MEDS ORDERED: ENOXAPARIN 40 MG/0.4 ML SQ SCH (09:00)
[2020-05-26] MEDS ORDERED: MAGNESIUM SULFATE 1 gm IVPB 1 GM/100 ML BAG IV ONE (09:00)
[2020-05-26] MEDS ORDERED: POTASSIUM CL SA 10 MEQ TAB PO ONE (09:00)
--- NOTE | 2020-05-26 09:36 | RAD REPORT ---
EXAM DESCRIPTION: US - Extremity Venous Uni Ltd - 05/26/2020 9:22 am CLINICAL HISTORY: R/O DVT Right Leg Leg swelling and edema. COMPARISON: Extrem Venous W Compress Dion dated 02/14/2019 FINDINGS: Right lower extremity venous system was interrogated with Doppler technique. Normal flow, compressibility and augmentation was noted. There is no DVT present. IMPRESSION: No evidence of right lower extremity deep venous thrombosis.
--- NOTE | 2020-05-26 12:19 | P.DS ---
Admission Date: 05/25/20 Discharge Date: 05/26/20 Disposition: ROUTINE DISCHARGE Discharge Condition: GOOD Reason for Admission: Leg cramps Consultations: None. 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 Diabetes mellitus complication status: with skin complications Diabetes mellitus complication detail: with foot ulcer Qualified Code(s): E11.621 - Type 2 diabetes mellitus with foot ulcer; L97.509 - Non-pressure chronic ulcer of other part of unspecified foot with unspecified severity; Z79.4 - dedicated intermodal truck driver (current) use of insulin (4) Morbid obesity Onset Date: 07/22/14 Current Visit: No Status: Acute Brief History of Present Illness: 39-year-old morbidly obese gentleman with a history of diabetes presented to the emergency department with a complaint of sudden onset of leg cramps. Patient then developed generalized body pains with associated nausea and vomiting and fever. He stated he vomited 4 times. Also reports some abdominal pain, no diarrhea. He had low-grade fever with a temperature of 100.1 in the ED. Blood work shows some leukocytosis. Patient was tachycardic, heart rate was as high as 170 at a point in the ED. He meets criteria for sepsis. Patient Brady 19 test was negative. Chest x-ray shows no acute disease. He was placed under observation for further management. Hospital Course: Patient placed under observation medical and hydrated with IV fluid. Signs of sepsis resolved with treatment. Patient treated with Levaquin for possible infection. UA did not suggest the presence of UTI. Chest x-ray did not show any infiltrate. Blood cultures yielded no growth. Patient was afebrile during the hospital stay. He was complaining of leg cramps especially on the right. Venous Doppler did not show any DVT. Patient is deemed clinically stable for discharge. Vital Signs/Physical Exam: Temp Pulse Resp BP Pulse Ox 97.3 F 66 19 113/58 L 96 05/26/20 08:00 05/26/20 08:00 05/26/20 09:20 05/26/20 08:00 05/26/20 09:20 General: Alert, In no apparent distress, Obese HEENT: Mucous membr. moist/pink Neck: Supple Respiratory: Clear to auscultation bilaterally, Normal air movement Cardiovascular: No edema, Regular rate/rhythm, Normal S1 S2 Gastrointestinal: Normal bowel sounds, Soft and benign, Non-distended, No tenderness Musculoskeletal: No swelling, No erythema Integumentary: No rashes Neurological: Other (Nonfocal) Laboratory Data at Discharge: WBC 11.6 K/uL (4.3-10.9) H D 05/26/20 03:40 Hgb 12.2 g/dL (13.6-17.9) L 05/26/20 03:40 Hct 35.7 % (39.6-49.0) L D 05/26/20 03:40 Plt Count 148 K/uL (152-406) L 05/26/20 03:40 PT 11.8 SECONDS (9.5-12.5) 05/25/20 11:45 INR 1.00 05/25/20 11:45 APTT 30.4 SECONDS (24.3-36.9) 05/25/20 11:45 Sodium 137 mmol/L (136-145) 05/26/20 03:40 Potassium 3.9 mmol/L (3.5-5.1) 05/26/20 03:40 BUN 15 mg/dL (7-18) 05/26/20 03:40 Creatinine 0.77 mg/dL (0.55-1.3) 05/26/20 03:40 Glucose 304 mg/dL (74-106) H 05/26/20 03:40 Phosphorus 2.8 mg/dL (2.5-4.9) 05/26/20 03:40 Magnesium 1.8 mg/dL (1.8-2.4) 05/26/20 03:40 Total Bilirubin 0.5 mg/dL (0.2-1.0) 05/25/20 11:45 AST 15 U/L (15-37) 05/25/20 11:45 ALT 34 U/L (12-78) 05/25/20 11:45 Alkaline Phosphatase 89 U/L (45-117) 05/25/20 11:45 Amylase 30 U/L (25-115) 05/25/20 11:45 Lipase 111 U/L (73-393) 05/25/20 11:45 Home Medications: Gabapentin 600 mg PO BID 05/25/20 Metformin HCl 1,000 mg PO BID 05/25/20 Diet: ADA Activity: Ad cesar Time spent managing pt's care (in minutes): 32
[2020-05-26 13:26] VITALS: BP 124/63; TEMP 97
== END 2020-05-26 13:25 | disposition home or self-care (01) | DRG 872 ==
LOC: ER 10:23 → OBSVTOIN 16:45 → ERHOLD 16:45 → 2ND 17:56
PROVIDERS: ADMIT Internal Medicine; ATTEND Internal Medicine
DX: A41.9 Sepsis, unspecified organism (principal); Z68.43 Body mass index [BMI] 50.0-59.9, adult; E11.621 Type 2 diabetes mellitus with foot ulcer; L97.509 Non-pressure chronic ulcer of other part of unspecified foot with unspecified severity; I10 Essential (primary) hypertension; E66.01 Morbid (severe) obesity due to excess calories; Z79.4 Long term (current) use of insulin
CPT/HCPCS: 36415; 70450; 71045; 80048; 80076; 81003; 81015; 82150; 82550; 82553; 82947; 83605; 83690; 83735; 84100; 84145; 84484; 85025; 85610; 85730; 87040; 93005; 93971; 94760; 96365; 96375; 99284; J1650; J2270; J2405; J2800; J3475; J7030; U0003

== ENCOUNTER 2021-05-16 20:36 | Emergency (ER) | payer SELFPAY ==
--- OUTSIDE RECORDS SUMMARY | 2021-05-16 20:40 | XMS REPORT | Continuity of Care Document ---
:1980 Author Organization [facility] t Address [address] [place] [address] Care Team Providers Name Role Phone Unavailable Unavailable Unavailable Payers Payer Name Policy Type Policy Number Effective Date Expiration Date S ource Problems This patient has no known problems. Allergies, Adverse Reactions, Alerts Allergy Allergy Status Severity Reaction(s) Onset Inactive Treating Comm ents Source Name Type Date Date Clinician No DA Active U [facility] 12-01 [place] [facility] 00:00: [facility] 00 [facility] vancomyc DA Active SV 0 [facility] in -[facility] [place] 00:00: [address] Medications This patient has no known medications. Procedures This patient has no known procedures. Results Test Description Test Time Test Comments Results Result Comments Source GLUBED 2018-12-03 11:29:00 Test Item Value Reference Range Interpretation Comme nts GLUBED (test code = GLUBED) 202 mg/dL 70-110 H BASIC METABOLIC [id number] 05:36:00 Test Item Value Reference Range Interpretation [...] code = 8.2 mg/dL 7.8-10.9 N CA) [id number] 05:01:00 Test Item Value Reference Range Interpretation Comments GLUBED (test code = GLUBED) 185 mg/dL 70-110 H CBC W/AUTO [id number] 04:37:00 Test Item Value Reference Range Interpretation [...] code = 0.00 K/mm3 0.00-0.20 N NRBC#) [id number] 20:40:00 Test Item Value Reference Range Interpretation Comments GLUBED (test code = GLUBED) 256 mg/dL 70-110 H [id number] 17:24:00 Test Item Value Reference Range Interpretation Comments GLUBED (test code = GLUBED) 244 mg/dL 70-110 H [id number] 11:31:00 Test Item Value Reference Range Interpretation Comments GLUBED (test code = GLUBED) 272 mg/dL 70-110 H - DUP LE ART [id number] 09:44:00 [place]: [address]: [facility]: [facility] 1980 Age/S: 37/M [address] Unit #: [id number] Loc: [address] [place], [place] [address] Phys: Keny Duran MD Acct: [id number] Dis Date: Status: ADM IN PHONE #: [phone] Exam Date: 12/02/2018 033 FAX #: [phone] Reason: diabetic ulcers EXAMS: CPT CODE: [id number] DUP LE ART ARAVIND [id number]: Ulcers TECHNIQUE: Grayscale B-mode, color-flow, and spectral [...] 45-117 N TOTAL (test code = ALKP) [id number] 06:17:00 Test Item Value Reference Range Interpretation Comments MAGNESIUM (test code = MAG) 2.0 mg/dL 1.5-2.1 N COMPREHENSIVE METABOLIC [id number] 06:10:00 Test Item Value Reference Range Interpretation [...] TOTAL (test U/L 45-117 code = ALKP) [id number] 06:10:00 Test Item Value Reference Range Interpretation Comments MAGNESIUM (test code = MAG) mg/dL 1.5-2.1 - CT CHEST W/O [id number] 05:51:00 [place]: [address]: [facility] 1980 Age/S: 37/M [address] [facility] Unit #: [id number] Loc: [address] [place], [place] [address] Phys: Keny Duran MD Acct: [id number] Dis Date: Status: ADM IN PHONE #: [phone] Exam Date: 12/01/2018 0534 FAX #: [phone] Reason: PNA CTDI: DLP: Automated exposure control, iterative reconstruction technique, and/oradjustment of mA and/or kV according to patient's size was utilized fooptimum radiation dose reduction. EXAMS: CPT CODE: [id number] CT CHEST W/O CONTRAST 73067 HISTORY: Pneumonia TECHNIQUE: Axial tomograms through the [...] abnormalities on this limited noncontrast examination. at 0515 Reported and signed by: LLOYD OGLESBY M.D. Facility ACR Accreditation for [place] - May 2012 CC: Keny Duran MD; Sunday Mendoza NP Technologist: CLAUDIA LUTZ RT(R)(CT) Transcribed Date/Time/By: 12/02/2018 (0551) : By: [email or web address] Orig Print D/T: S: 12/02/2018 (0545) PAGE 1 Signed ReportCBC W/AUTO [id number] 05:44:00 Test Item Value Reference Range Interpretation [...] code = 0.00 K/mm3 0.00-0.20 N NRBC#) [id number] 05:10:00 Test Item Value Reference Range Interpretation Comments GLUBED (test code = GLUBED) 201 mg/dL 70-110 H - DUP VEIN [id number] 04:37:00 [place]: [facility] St: [facility]M [facility] 1980 Age/S: 37/M [address] Unit #: [id number] Loc: [address] [place], [place] [address] Phys: Keny Duran MD Acct: [id number] Dis Date: Status: ADM IN PHONE #: [phone] Exam Date: 12/02/2018237 FAX #: [phone] Reason: BLE SWELLING EXAMS: CPT CODE: [id number] DUP VEIN ARAVIND 97370 HISTORY: Bilateral swelling TECHNIQUE: Grayscale real-time B-mode [...] ER St: ADM FAX: Sunday Mendoza NP [phone] Name: [facility] : 1980 Age/S: 37/M [address] [facility] Unit #: [id number] Loc: [facility] [place], [place] [address] Phys: Keny Duran MD Acct: [id number] Dis Date: Status: ADM IN PHONE #: [phone] Exam Date: 12/01/2018 2304 FAX #: [phone] Reason: GREAT TOE ULCER EXAMS: CPT CODE: [id number] XR FOOT [address] [place] [address] LOCATION: V20 EXAM: - XR FOOT 2 [...] 1 Signed Report- XR FOOT 2 VIEWS [id number] 00:17:00 FAX: Keny Leonard MD Camps: ER St: ADM FAX: Sunday Mendoza NP [phone] Name: [facility] : 1980 Age/S: 37/M [address] [facility] Unit #: [id number] Loc: [address] [place], [place] [address] Phys: Keny Duran MD Acct: [id number] Dis Date: Status: ADM IN PHONE #: [phone] Exam Date: 12/01/2018 2304 FAX #: [phone] Reason: GREAT TOE ULCER EXAMS: CPT CODE: [id number] XR FOOT [address] [place] [address] LOCATION: V20 EXAM: - XR FOOT 2 [...] H code = GLYHGB) MEAN BLOOD GLUCOSE [id number] 22:46:00 Test Item Value Reference Range Interpretation Comments MEAN BLOOD GLUCOSE CALCULATION (test 228.8 code = MBGCALC) URINALYSIS W/O [id number] 21:41:00 Test Item Value Reference Range Interpretation [...] code = LEUU) SOURCE: URINESPECIMEN DESCRIPTION: CMCUA [id number] 21:41:00 Test Item Value Reference Range Interpretation Comments UA WBC (test code = WBCU) 2-5 0-5 UA RBC (test code = RBCU) 0-2 0-5 UA SQUAMOUS CELLS (test code = 5-10 #/lpf NONE SEEN SQU) SOURCE: URINESPECIMEN DESCRIPTION: CMCURINALYSIS W/O [id number] 21:04:00 Test Item Value Reference Range Interpretation [...] code = LEUU) SOURCE: URINESPECIMEN DESCRIPTION: CMCUA [id number] 21:04:00 Test Item Value Reference Range Interpretation Comments UA WBC (test code = WBCU) 0-5 UA RBC (test code = RBCU) 0-5 SOURCE: URINESPECIMEN DESCRIPTION: CMCURINALYSIS W/O [id number] 21:04:00 Test Item Value Reference Range Interpretation [...] code = LEUU) SOURCE: URINESPECIMEN DESCRIPTION: CMCUA [id number] 21:04:00 Test Item Value Reference Range Interpretation Comments UA WBC (test code = WBCU) 0-5 UA RBC (test code = RBCU) 0-5 SOURCE: URINESPECIMEN DESCRIPTION: [facility] LACTIC [id number] 20:50:00 Test Item Value Reference Range Interpretation Comments POC LACTIC ACID (test code = 1.61 MMOL/L 0.40-2.00 N POCLAC) - XR CHEST 1 [id number] 20:42:00 FAX: Xavier Maguire [phone] Camps: ER St: REG Name: [facility] : 1980 Age/S: 37/M [address] Unit #: [id number] Loc: .[place], [place] [address] Phys: Xavier Maguire MD Acct: [id number] Dis Date: Status: REG ER PHONE #: [phone] Exam Date: 12/01/20182039 FAX #: [phone] Reason: code sepsis EXAMS: CPT CODE: [id number] XR CHEST 1 V 32638 LOCATION: V20 EXAM: - XR CHEST 1 [...] dose reduction. PAGE 1 Signed ReportHEPATIC FUNCTION [id number] 19:50:00 Test Item Value Reference Range Interpretation [...] 45-117 N TOTAL (test code = ALKP) [id number] 19:50:00 Test Item Value Reference Range Interpretation Comments LIPASE (test code = 120 U/L 73-393 N Reportin g units: LIP) International U nits/L NT PRO-BRAIN NATRIURETIC [id number] 19:50:00 Test Item Value Reference Range Interpretation Comments NT PRO-BRAIN NATRIURETIC PEPTI (test 18 pg/mL 0-125 N code = PROBNP) [id number] 19:50:00 Test Item Value Reference Range Interpretation [...] 0.05 ng/mL 0.00-0.05 N PROCAL) CHEMISTRY 8 [id number] 19:36:00 Test Item Value Reference Range Interpretation [...] 0.7 MG/DL 0.6-1.0 N CREATBED) HEPATIC FUNCTION [id number] 19:36:00 Test Item Value Reference Range Interpretation [...] 45-117 N TOTAL (test code = ALKP) [id number] 19:36:00 Test Item Value Reference Range Interpretation Comments LIPASE (test code = 120 U/L 73-393 N Reportin g units: LIP) International U nits/L NT PRO-BRAIN NATRIURETIC [id number] 19:36:00 Test Item Value Reference Range Interpretation Comments NT PRO-BRAIN NATRIURETIC PEPTI (test 18 pg/mL 0-125 N code = PROBNP) [id number] 19:36:00 Test Item Value Reference Range Interpretation [...] (test code = ng/mL 0.00-0.05 PROCAL) PROTHROMBIN [id number] 19:25:00 Test Item Value Reference Interpretation Comments [...] THE PATIENT ON ANY ANTICOAGULANTS? NTHROMBOPLASTIN TIME [id number] 19:25:00 Test Item Value Reference Range Interpretation Comments THROMBOPLASTIN TIME PARTIAL 27.0 SECONDS 23.0-32.0 N (test code = PTT) IS THE PATIENT ON ANY ANTICOAGULANTS? NPOC LACTIC [id number] 19:11:00 Test Item Value Reference Range Interpretation Comments POC LACTIC ACID 2.68 MMOL/L 0.40-2.00 H RESULTS CALL ED TO [] (test code = POCLAC) [place] [address]/01/18.NMI-JESUS MEZA L VALUE READ BA CK BY NURSE AND VERIF IED BY TECH? []REFEREN CE RANGES FOR: 1) ARTERIAL SAMPLE (0.5-1.6MMOL/L) 2) SPINAL FLUID (0.6-2.2MMOL/L) CBC W/AUTO [id number] 19:08:00 Test Item Value Reference Range Interpretation [...]
--- NOTE | 2021-05-16 23:00 | ER ---
Nurse's Notes [facility] Name: Addy Quintana Jr Age: 40 yrs Sex: Male : 1980 Arrival Date: 05/16/2021 Time: 20:43 Bed Waiting Private MD: Diagnosis: Phlebitis and thrombophlebitis of superficial vessels of right lower extremity;Local infection of the skin and subcutaneous tissue, unspecified Presentation: 05/16 21:33 Chief complaint: Patient states: Right calf pain starting Saturday night, fever, body kg aches, chills since saturday. Coronavirus screen: Client denies travel out of the [place] in the last 14 days. At this time, unable to obtain information related to travel outside the [place] At this time, the client does not indicate any symptoms associated with coronavirus-19. Ebola Screen: Patient negative for fever greater than or equal to 101.5 degrees Fahrenheit, and additional compatible Ebola Virus Disease symptoms Patient denies exposure to infectious person. Patient denies travel to an Ebola-affected area in the 21 days before illness onset. Initial Sepsis Screen: Does the patient meet any 2 criteria? No. Patient's initial sepsis screen is negative. Does the patient have a suspected source of infection? No. Patient's initial sepsis screen is negative. Risk Assessment: Do you want to hurt yourself or someone else? Patient reports no desire to harm self or others. Onset of symptoms was May 14, 2021. 21:33 Method Of Arrival: Wheelchair kg 21:33 Acuity: FLORENCIO 3 kg Triage Assessment: 21:35 General: Appears in no apparent distress. Behavior is calm, cooperative, appropriate kg for age, quiet. Pain: Complains of pain in Right calve Pain radiates to Generalized. Musculoskeletal: Reports pain in Right calve. Historical: - Allergies: 21:35 VANCOMYCIN AND DERIVATIVES; kg - Home Meds: 21:35 gabapentin 600 mg Oral tab 3 times per day [Active]; metformin 1,000 mg Oral tab 1 tab kg 2 times per day [Active]; atorvastatin 40 mg oral tab 1 tab once daily [Active]; Rybelsus 3 mg oral tab 1 tab once daily [Active]; Blood pressure med- unable to remember [Active]; Tresiba FlexTouch U-100 100 unit/mL (3 mL) subcutaneous inpn [Active]; - PMHx: 21:35 neuropathy; Hypertension; Diabetes - IDDM; Hypercholesterolemia; DVT; Blounts; kg - PSHx: 21:35 Dion Knee sx; kg - Immunization history:: Adult Immunizations up to date, Client reports receiving the 2nd dose of the Covid vaccine, Date received: April 2021 Client reports receiving the 1st dose of the Covid vaccine, March 2021. - Social history:: Smoking status: Patient reports the use of cigarette tobacco products, denies chronic smoking, but will smoke occasionally, Patient uses alcohol, occasionally. Screenin:43 Abuse screen: Denies threats or abuse. Denies injuries from another. Nutritional kg screening: No deficits noted. Tuberculosis screening: No symptoms or risk factors identified. Fall Risk None identified. Assessment: 22:30 General: Appears in no apparent distress. Behavior is calm, cooperative, appropriate lp1 for age. Neuro: Level of Consciousness is awake, alert, obeys commands. Respiratory: Respiratory effort is even, unlabored. Derm: Skin is intact, Skin is dry, Skin is normal. Vital Signs: 21:33 BP 120 / 74; Pulse 96; Resp 20; Temp 98.4(TE); Pulse Ox 99% on R/A; Weight 149.23 kg kg (R); Height 5 ft. 7 in. (170.18 cm) (R); Pain 9/10; 23:10 BP 126 / 74; Pulse 83; Resp 19; Temp 98; Pulse Ox 99% ; lp1 21:33 Body Mass Index 51.53 (149.23 kg, 170.18 cm) kg ED Course: 20:43 Patient arrived in ED. cf2 21:35 Triage completed. kg 21:43 Patient has correct armband on for positive identification. kg 21:43 Arm band placed on left wrist. kg 22:22 Bret Steen PA is PHCP. jr8 22:22 Perez Singer MD is Attending Physician. jr8 22:28 US Extremity Venous Unilateral Ltd In Process Unspecified. EDMS 22:54 Anjana Ely, RN is Primary Nurse. lp1 23:00 No provider procedures requiring assistance completed. Patient did not have IV access lp1 during this emergency room visit. Administered Medications: No medications were administered Outcome: 22:59 Discharge ordered by MD. jr8 23:15 Patient left the ED. lp1 23:15 Discharged to home ambulatory. lp1 23:15 Condition: good 23:15 Discharge instructions given to patient, Instructed on discharge instructions, follow up and referral plans. medication usage, Demonstrated understanding of instructions, follow-up care, medications, Prescriptions given X 1. Signatures: Dispatcher [employer] EDMS Anjana Ely RN RN lp1 Bret Steen PA PA jr8 Dipika Tellez cf2 Deborah Martino RN RN kg Corrections: (The following items were deleted from the chart) 23:44 23:43 Patient left the ED. lp1 lp1
--- NOTE | 2021-05-16 23:00 | EDPHYS ---
Physician Documentation [facility] Name: Addy Quintana Jr Age: 40 yrs Sex: Male : 1980 Arrival Date: 05/16/2021 Time: 20:43 Bed Waiting Private MD: ED Physician Perez Singer HPI: 05/16 22:52 This 40 yrs old Male presents to ER via Wheelchair with complaints of Cough, jr8 BODY PAIN, leg pain. 22:52 This is a 40-year-old gentleman that presented to the emergency room for right leg pain jr8 along with fevers body aches headache and cough. Patient stated that his right leg looked red and is very tender to palpation which he normally does not have.. Severity of symptoms: At their worst the symptoms were moderate in the emergency department the symptoms are unchanged. The patient has not experienced similar symptoms in the past. The patient has not recently seen a physician. Historical: - Allergies: 21:35 VANCOMYCIN AND DERIVATIVES; kg - Home Meds: 21:35 gabapentin 600 mg Oral tab 3 times per day [Active]; metformin 1,000 mg Oral tab 1 tab kg 2 times per day [Active]; atorvastatin 40 mg oral tab 1 tab once daily [Active]; Rybelsus 3 mg oral tab 1 tab once daily [Active]; Blood pressure med- unable to remember [Active]; Tresiba FlexTouch U-100 100 unit/mL (3 mL) subcutaneous inpn [Active]; - PMHx: 21:35 neuropathy; Hypertension; Diabetes - IDDM; Hypercholesterolemia; DVT; Blounts; kg - PSHx: 21:35 Dion Knee sx; kg - Immunization history:: Adult Immunizations up to date, Client reports receiving the 2nd dose of the Covid vaccine, Date received: April 2021 Client reports receiving the 1st dose of the Covid vaccine, March 2021. - Social history:: Smoking status: Patient reports the use of cigarette tobacco products, denies chronic smoking, but will smoke occasionally, Patient uses alcohol, occasionally. ROS: 22:52 ENT: Negative for injury, pain, and discharge, Neck: Negative for injury, pain, and jr8 swelling, Cardiovascular: Negative for chest pain, palpitations, and edema, Abdomen/GI: Negative for abdominal pain, nausea, vomiting, diarrhea, and constipation, Back: Negative for injury and pain. 22:52 MS/Extremity: Negative for injury and deformity. 22:52 Constitutional: Positive for body aches, chills. 22:52 Respiratory: Positive for cough, Negative for dyspnea on exertion, shortness of breath, sputum production, wheezing. 22:52 Skin: Positive for erythema, of the right leg. 22:52 Neuro: Positive for headache. 22:52 All other systems are negative. Exam: 22:52 Constitutional: This is a well developed, well nourished patient who is awake, alert, jr8 and in no acute distress. ENT: Nares patent. No nasal discharge, no septal abnormalities noted. Tympanic membranes are normal and external auditory canals are clear. Oropharynx with no redness, swelling, or masses, exudates, or evidence of obstruction, uvula midline. Mucous membranes moist. Cardiovascular: Regular rate and rhythm with a normal S1 and S2. No gallops, murmurs, or rubs. Normal PMI, no JVD. No pulse deficits. Respiratory: Lungs have equal breath sounds bilaterally, clear to auscultation and percussion. No rales, rhonchi or wheezes noted. No increased work of breathing, no retractions or nasal flaring. Abdomen/GI: Soft, non-tender, with normal bowel sounds. No distension or tympany. No guarding or rebound. No evidence of tenderness throughout. Back: No spinal tenderness. No costovertebral tenderness. Full range of motion. Skin: Warm, dry with normal turgor. Normal color with no rashes, no lesions, and no evidence of cellulitis. Neuro: Awake and alert, GCS 15, oriented to person, place, time, and situation. Cranial nerves II-XII grossly intact. Motor strength 5/5 in all extremities. Sensory grossly intact. 22:52 Musculoskeletal/extremity: Extremities: grossly normal except: noted in the right leg: Patient has extensive varicosities to the right lower extremity. Mild erythema noted to the mid right calf with moderate tenderness to palpation. Some petechia also noted in that region., ROM: intact in all extremities, full active range of motion, full passive range of motion, Circulation is intact in all extremities. Sensation intact. Vital Signs: 21:33 BP 120 / 74; Pulse 96; Resp 20; Temp 98.4(TE); Pulse Ox 99% on R/A; Weight 149.23 kg kg (R); Height 5 ft. 7 in. (170.18 cm) (R); Pain 9/10; 23:10 BP 126 / 74; Pulse 83; Resp 19; Temp 98; Pulse Ox 99% ; lp1 21:33 Body Mass Index 51.53 (149.23 kg, 170.18 cm) kg MDM: 22:22 Patient medically screened. jr8 22:58 Data reviewed: vital signs, nurses notes, lab test result(s), radiologic studies, jr8 ultrasound. Data interpreted: Pulse oximetry: on room air is 99 %. Interpretation: normal. Counseling: I had a detailed discussion with the patient and/or guardian regarding: the historical points, exam findings, and any diagnostic results supporting the discharge/admit diagnosis, lab results, radiology results, the need for outpatient follow up, a family practitioner, to return to the emergency department if symptoms worsen or persist or if there are any questions or concerns that arise at home. ED course: Discussed with patient that this could be thrombophlebitis versus early cellulitis. Will put on antibiotics. Will need him to do hot packs with anti-inflammatory as well at home. Patient good with this plan and will follow up with PCP. Knows to come back if worse.. 05/16 21:46 Order name: COVID-19 : Document "Date of Symptom Onset" if Symptomatic. kg 05/16 21:46 Order name: US Extremity Venous Unilateral Ltd kg 05/16 23:39 Order name: SARS-COV-2 RT PCR; Complete Time: 23:41 EDMS Administered Medications: No medications were administered Disposition: 05/17 07:55 Co-signature as Attending Physician, Perez Singer MD I agree with the assessment and emre plan of care. Disposition Summary: 05/16/21 22:59 Discharge Ordered Location: Home jr8 Problem: new jr8 Symptoms: have improved jr8 Condition: Stable jr8 Diagnosis - Phlebitis and thrombophlebitis of superficial vessels of right lower extremity jr8 - Local infection of the skin and subcutaneous tissue, unspecified jr8 Followup: jr8 - With: Private Physician - When: 5 - 6 days - Reason: Recheck today's complaints, Continuance of care, Re-evaluation by your physician Discharge Instructions: - Discharge Summary Sheet jr8 - Cellulitis, Adult jr8 - Thrombophlebitis jr8 Forms: - Medication Reconciliation Form jr8 - Thank You Letter jr8 - Antibiotic Education jr8 - Prescription Opioid Use jr8 Prescriptions: - Cephalexin 500 mg Oral Capsule - take 1 capsule by ORAL route every 8 hours for 10 days; 30 capsule; Refills: 0, jr8 Product Selection Permitted Signatures: Dispatcher [employer] EDMS Perez Singer MD MD cha Roszak, Josh, PA PA jr8 Deborah Martino RN RN kg Corrections: (The following items were deleted from the chart) 05/16 22:16 21:47 CORONAVIRUS ordered. EDAL EDMS 22:58 22:52 Musculoskeletal/extremity: Extremities: grossly normal except: noted in the right jr8 leg: Patient has extensive varicosities to the right lower extremity., jr8
[2021-05-16 23:51] VITALS: O2SAT 99
[2021-05-16 23:53] VITALS: BP 126/74; TEMP 98
--- NOTE | 2021-05-17 07:41 | RAD REPORT ---
EXAM DESCRIPTION: US - Extremity Venous Uni Ltd - 05/16/2021 10:28 pm CLINICAL HISTORY: Pain COMPARISON: 05/26/2020 TECHNIQUE: Real-time sonographic evaluation of the right lower extremity deep venous system was perf ormed. FINDINGS: Normal compressibility, flow augmentation, phasic flow and spontaneous flow is identified in the right lower extremity deep venous system. No intraluminal filling defects seen. Subcutaneous e bell is present at the patient's calf. There are prominent varicose veins. IMPRESSION: No DVT in the right lower extremity.
== END 2021-05-16 23:43 | disposition home or self-care (01) ==
LOC: ER 20:36
DX: I80.01 Phlebitis and thrombophlebitis of superficial vessels of right lower extremity (principal); L08.9 Local infection of the skin and subcutaneous tissue, unspecified; E11.9 Type 2 diabetes mellitus without complications; F17.210 Nicotine dependence, cigarettes, uncomplicated; Z79.4 Long term (current) use of insulin; Z88.3 Allergy status to other anti-infective agents; Z20.822 Contact with and (suspected) exposure to COVID-19
CPT/HCPCS: 93971; 99283; U0003

== ENCOUNTER 2021-09-03 19:24 | Inpatient (IN) | payer OTHER, SELFPAY ==
--- OUTSIDE RECORDS SUMMARY | 2021-09-03 19:28 | XMS REPORT | Continuity of Care Document ---
:1980 Author Organization [facility] t Address [address] [place] [address] Care Team Providers Name Role Phone Unavailable Unavailable Unavailable Payers Payer Name Policy Type Policy Number Effective Date Expiration Date S ource Problems This patient has no known problems. Allergies, Adverse Reactions, Alerts Allergy Allergy Status Severity Reaction(s) Onset Inactive Treating Comm ents Source Name Type Date Date Clinician No DA Active U [facility] 12-01 [place] [facility] 00:00: Regiona count includes the [facility] 00 [facility] vancomyc DA Active SV 0 [facility] in [place] 00:00: [address] Medications This patient has no known medications. Procedures This patient has no known procedures. Results Test Description Test Time Test Comments Results Result Comments Source GLUBED 2018-12-03 11:29:00 Test Item Value Reference Range Interpretation Comme nts GLUBED (test code = GLUBED) 202 mg/dL 70-110 H BASIC METABOLIC [id number] 05:36:00 Test Item Value Reference Range Interpretation [...] code = 8.2 mg/dL 7.8-10.9 N CA) [id number] 05:01:00 Test Item Value Reference Range Interpretation Comments GLUBED (test code = GLUBED) 185 mg/dL 70-110 H CBC W/AUTO [id number] 04:37:00 Test Item Value Reference Range Interpretation [...] code = 0.00 K/mm3 0.00-0.20 N NRBC#) [id number] 20:40:00 Test Item Value Reference Range Interpretation Comments GLUBED (test code = GLUBED) 256 mg/dL 70-110 H [id number] 17:24:00 Test Item Value Reference Range Interpretation Comments GLUBED (test code = GLUBED) 244 mg/dL 70-110 H [id number] 11:31:00 Test Item Value Reference Range Interpretation Comments GLUBED (test code = GLUBED) 272 mg/dL 70-110 H - DUP LE ART [id number] 09:44:00 [place]: [address]: [facility]: [facility] 1980 Age/S: 37/M [address] Unit #: [id number] Loc: [address] [place], [place] [address] Phys: Keny Duran MD Acct: [id number] Dis Date: Status: ADM IN PHONE #: [phone] Exam Date: 12/02/2018 033 FAX #: [phone] Reason: diabetic ulcers EXAMS: CPT CODE: [id number] DUP LE ART ARAVIND [id number]: Ulcers TECHNIQUE: Grayscale B-mode, color-flow, and spectral [...] 45-117 N TOTAL (test code = ALKP) [id number] 06:17:00 Test Item Value Reference Range Interpretation Comments MAGNESIUM (test code = MAG) 2.0 mg/dL 1.5-2.1 N COMPREHENSIVE METABOLIC [id number] 06:10:00 Test Item Value Reference Range Interpretation [...] TOTAL (test U/L 45-117 code = ALKP) [id number] 06:10:00 Test Item Value Reference Range Interpretation Comments MAGNESIUM (test code = MAG) mg/dL 1.5-2.1 - CT CHEST W/O [id number] 05:51:00 [place]: [address]: [facility]: [facility] 1980 Age/S: 37/M [address] [facility] Unit #: [id number] Loc: [address] [place], [place] [address] Phys: Keny Duran MD Acct: [id number] Dis Date: Status: ADM IN PHONE #: [phone] Exam Date: 12/01/2018 0534 FAX #: [phone] Reason: PNA CTDI: DLP: Automated exposure control, iterative reconstruction technique, and/oradjustment of mA and/or kV according to patient's size was utilized fooptimum radiation dose reduction. EXAMS: CPT CODE: [id number] CT CHEST W/O CONTRAST 56166 HISTORY: Pneumonia TECHNIQUE: Axial tomograms through the [...] abnormalities on this limited noncontrast examination. at 0591 Reported and signed by: LLOYD OGLESBY M.D. Facility ACR Accreditation for [place] - May 2012 CC: Keny Duran MD; Sunday Mendoza NP Technologist: CLAUDIA LUTZ RT(R)(CT) Transcribed Date/Time/By: 12/02/2018 (0551) : By: [email or web address] Orig Print D/T: S: 12/02/2018 (0584) PAGE 1 Signed ReportCBC W/AUTO [id number] 05:44:00 Test Item Value Reference Range Interpretation [...] code = 0.00 K/mm3 0.00-0.20 N NRBC#) [id number] 05:10:00 Test Item Value Reference Range Interpretation Comments GLUBED (test code = GLUBED) 201 mg/dL 70-110 H - DUP VEIN [id number] 04:37:00 [place]: [facility] St: [facility]: [facility] : 1980 Age/S: 37/M [address] Unit #: [id number] Loc: [address] [place], [place] [address] Phys: Keny Duran MD Acct: [id number] Dis Date: Status: ADM IN PHONE #: [phone] Exam Date: 12/02/2018237 FAX #: [phone] Reason: BLE SWELLING EXAMS: CPT CODE: [id number] DUP VEIN ARAVIND 25283 HISTORY: Bilateral swelling TECHNIQUE: Grayscale real-time B-mode [...] By: [email or web address] Orig Print D/T: S: 12/02/2018 (0444) PAGE 1 Signed Report- XR FOOT 2 VIEWS RT 2018-12-02 00:17:00 FAX: Keny Leonard MD [place]: ER St: ADM FAX: Sunday Mendoza NP [phone] Name: [facility] : 1980 Age/S: 37/M [address] [facility] Unit #: [id number] Loc: [facility] [place], [place] [address] Phys: Keny Duran MD Acct: [id number] Dis Date: Status: ADM IN PHONE #: [phone] Exam Date: 12/01/2018 2304 FAX #: [phone] Reason: GREAT TOE ULCER EXAMS: CPT CODE: [id number] XR FOOT [address] [place] [address] LOCATION: V20 EXAM: - XR FOOT 2 [...] 1 Signed Report- XR FOOT 2 VIEWS [id number] 00:17:00 FAX: Keny Leonard MD [place]: ER St: ADM FAX: Sunday Mendoza NP [phone] Name: [facility] : 1980 Age/S: 37/M [address] [facility] Unit #: [id number] Loc: [address] [place], [place] [address] Phys: Keny Duran MD Acct: [id number] Dis Date: Status: ADM IN PHONE #: [phone] Exam Date: 12/01/2018 2304 FAX #: [phone] Reason: GREAT TOE ULCER EXAMS: CPT CODE: [id number] XR FO[place] [address] [place] [address] LOCATION: V20 EXAM: - XR FOOT 2 [...] H code = GLYHGB) MEAN BLOOD GLUCOSE [id number] 22:46:00 Test Item Value Reference Range Interpretation Comments MEAN BLOOD GLUCOSE CALCULATION (test 228.8 code = MBGCALC) URINALYSIS W/O [id number] 21:41:00 Test Item Value Reference Range Interpretation [...] code = LEUU) SOURCE: URINESPECIMEN DESCRIPTION: CMCUA [id number] 21:41:00 Test Item Value Reference Range Interpretation Comments UA WBC (test code = WBCU) 2-5 0-5 UA RBC (test code = RBCU) 0-2 0-5 UA SQUAMOUS CELLS (test code = 5-10 #/lpf NONE SEEN SQU) SOURCE: URINESPECIMEN DESCRIPTION: CMCURINALYSIS W/O [id number] 21:04:00 Test Item Value Reference Range Interpretation [...] code = LEUU) SOURCE: URINESPECIMEN DESCRIPTION: CMCUA [id number] 21:04:00 Test Item Value Reference Range Interpretation Comments UA WBC (test code = WBCU) 0-5 UA RBC (test code = RBCU) 0-5 SOURCE: URINESPECIMEN DESCRIPTION: CMCURINALYSIS W/O [id number] 21:04:00 Test Item Value Reference Range Interpretation [...] code = LEUU) SOURCE: URINESPECIMEN DESCRIPTION: CMCUA [id number] 21:04:00 Test Item Value Reference Range Interpretation Comments UA WBC (test code = WBCU) 0-5 UA RBC (test code = RBCU) 0-5 SOURCE: URINESPECIMEN DESCRIPTION: [facility] LACTIC [id number] 20:50:00 Test Item Value Reference Range Interpretation Comments POC LACTIC ACID (test code = 1.61 MMOL/L 0.40-2.00 N POCLAC) - XR CHEST 1 [id number] 20:42:00 FAX: Xavier Maguire [phone] [place]: ER St: REG Name: [facility] : 1980 Age/S: 37/M [address] Unit #: [id number] Loc: .[place], [place] [address] Phys: Xavier Maguire MD Acct: [id number] Dis Date: Status: REG ER PHONE #: [phone] Exam Date: 12/01/20182039 FAX #: [phone] Reason: code sepsis EXAMS: CPT CODE: [id number] XR CHEST 1 V [address] LOCATION: V20 EXAM: - XR CHEST 1 [...] dose reduction. PAGE 1 Signed ReportHEPATIC FUNCTION [id number] 19:50:00 Test Item Value Reference Range Interpretation [...] 45-117 N TOTAL (test code = ALKP) [id number] 19:50:00 Test Item Value Reference Range Interpretation Comments LIPASE (test code = 120 U/L 73-393 N Reportin g units: LIP) International U nits/L NT PRO-BRAIN NATRIURETIC [id number] 19:50:00 Test Item Value Reference Range Interpretation Comments NT PRO-BRAIN NATRIURETIC PEPTI (test 18 pg/mL 0-125 N code = PROBNP) [id number] 19:50:00 Test Item Value Reference Range Interpretation [...] 0.05 ng/mL 0.00-0.05 N PROCAL) CHEMISTRY 8 [id number] 19:36:00 Test Item Value Reference Range Interpretation [...] 0.7 MG/DL 0.6-1.0 N CREATBED) HEPATIC FUNCTION [id number] 19:36:00 Test Item Value Reference Range Interpretation [...] 45-117 N TOTAL (test code = ALKP) [id number] 19:36:00 Test Item Value Reference Range Interpretation Comments LIPASE (test code = 120 U/L 73-393 N Reportin g units: LIP) International U nits/L NT PRO-BRAIN NATRIURETIC [id number] 19:36:00 Test Item Value Reference Range Interpretation Comments NT PRO-BRAIN NATRIURETIC PEPTI (test 18 pg/mL 0-125 N code = PROBNP) [id number] 19:36:00 Test Item Value Reference Range Interpretation [...] (test code = ng/mL 0.00-0.05 PROCAL) PROTHROMBIN [id number] 19:25:00 Test Item Value Reference Interpretation Comments [...] THE PATIENT ON ANY ANTICOAGULANTS? NTHROMBOPLASTIN TIME [id number] 19:25:00 Test Item Value Reference Range Interpretation Comments THROMBOPLASTIN TIME PARTIAL 27.0 SECONDS 23.0-32.0 N (test code = PTT) IS THE PATIENT ON ANY ANTICOAGULANTS? NPOC LACTIC [id number] 19:11:00 Test Item Value Reference Range Interpretation Comments POC LACTIC ACID 2.68 MMOL/L 0.40-2.00 H RESULTS CALL ED TO [] (test code = POCLAC) [place] [address]/01/18.NMI-JESUS MEZA L VALUE READ BA CK BY NURSE AND VERIF IED BY TECH? []REFEREN CE RANGES FOR: 1) ARTERIAL SAMPLE (0.5-1.6MMOL/L) 2) SPINAL FLUID (0.6-2.2MMOL/L) CBC W/AUTO [id number] 19:08:00 Test Item Value Reference Range Interpretation [...]
[2021-09-03] MEDS ORDERED: MORPHINE 4 MG/ML SYR ONE ×2 (20:01→21:15)
[2021-09-03] MEDS ORDERED: ONDANSETRON 4 MG/2 ML VIAL ONE (20:01)
[2021-09-03 20:23] LABS: Absolute Lymphocytes (CBC) 2.4 K/uL (0.7-4.9); Basophils % 0.5 % (0-1.3); Hematocrit 42.5 % (39.6-49.0); Lymphocytes % 26.5 % (15.3-44.8); RBC Red Blood Cell Count 4.97 M/uL (4.33-5.43)
[2021-09-03 20:39] LABS: BUN Blood Urea Nitrogen 20 mg/dL (7-18); Bicarbonate 27 mmol/L (21-32); Glucose Level 364 mg/dL (74-106); Potassium 3.7 mmol/L (3.5-5.1); Sodium Level 139 mmol/L (136-145)
--- NOTE | 2021-09-03 21:14 | RAD REPORT ---
EXAM DESCRIPTION: US - Extremity Venous Uni Ltd - 09/03/2021 8:25 pm CLINICAL HISTORY: Pain;Swelling Leg swelling and edema. COMPARISON: Extremity Venous Uni Ltd dated 05/16/2021 FINDINGS: Right lower extremity venous system was interrogated with Doppler technique. Normal flow, compressibility and augmentation was noted. There is no DVT present. IMPRESSION: No evidence of right lower extremity deep venous thrombosis.
--- NOTE | 2021-09-03 21:17 | RAD REPORT ---
EXAM DESCRIPTION: RAD - Foot Right 3 View - 09/03/2021 8:14 pm CLINICAL HISTORY: PAIN COMPARISON: Foot Right 3 View dated 07/25/2015; Foot Right 2 View dated 11/11/2014 FINDINGS: Moderate soft tissue swelling affects the great toe. Ulceration is seen along the plantar aspect of the great toe soft tissues. Bony destructive changes involving the distal aspect of the pro ximal phalanx of the great toe likely represents osteomyelitis.
--- NOTE | 2021-09-03 21:27 | ER ---
Nurse's Notes [facility] Name: Addy Quintana Jr Age: 40 yrs Sex: Male : 1980 Arrival Date: 09/03/2021 Time: 19:27 Bed 5 Private MD: Diagnosis: Osteomyelitis, unspecified Presentation: 09/03 19:37 Chief complaint: Patient states: Right foot swelling X 2 days, began hurting this ld1 morning. Diabetic foot ulcer. Coronavirus screen: At this time, the client does not indicate any symptoms associated with coronavirus-19. Ebola Screen: No symptoms or risks identified at this time. Initial Sepsis Screen: Does the patient meet any 2 criteria? No. Patient's initial sepsis screen is negative. Does the patient have a suspected source of infection? Yes: Skin breakdown/wound. Risk Assessment: Do you want to hurt yourself or someone else? Patient reports no desire to harm self or others. Onset of symptoms was September 03, 2021. 19:37 Method Of Arrival: Wheelchair ld1 19:37 Acuity: FLORENCIO 3 ld1 Triage Assessment: 19:39 General: Appears in no apparent distress. comfortable, Behavior is calm, cooperative, ld1 appropriate for age. Pain: Complains of pain in right leg Pain does not radiate. Pain currently is 10 out of 10 on a pain scale. Quality of pain is described as throbbing, Pain began suddenly, Is continuous. EENT: No signs and/or symptoms were reported regarding the EENT system. Neuro: Level of Consciousness is awake, alert, obeys commands, Oriented to person, place, time, situation. Cardiovascular: Capillary refill < 3 seconds Patient's skin is warm and dry. Respiratory: Airway is patent Respiratory effort is even, unlabored, Respiratory pattern is regular, symmetrical. GI: Abdomen is non-distended, obese. : No signs and/or symptoms were reported regarding the genitourinary system. Derm: No signs and/or symptoms reported regarding the dermatologic system. Musculoskeletal: No signs and/or symptoms reported regarding the musculoskeletal system. Historical: - Allergies: 19:39 VANCOMYCIN AND DERIVATIVES; ld1 - Home Meds: 19:39 atorvastatin 40 mg Oral tab 1 tab once daily [Active]; metformin 1,000 mg Oral tab 1 ld1 tab 2 times per day [Active]; gabapentin 600 mg Oral tab 3 times per day [Active]; Tresiba FlexTouch U-100 100 unit/mL (3 mL) subcutaneous inpn [Active]; Blood pressure med- unable to remember [Active]; Rybelsus 3 mg Oral tab 1 tab once daily [Active]; - PMHx: 19:39 Blounts; Diabetes - IDDM; Diabetes - NIDDM; DVT; Hypercholesterolemia; Hypertension; ld1 neuropathy; - PSHx: 19:39 Dion knee sx; ld1 - Immunization history:: Adult Immunizations up to date, Client reports receiving the 2nd dose of the Covid vaccine. - Social history:: Smoking status: Patient reports the use of cigarette tobacco products, denies chronic smoking, but will smoke occasionally, Patient/guardian denies using alcohol. Screenin:41 Abuse screen: Denies threats or abuse. Nutritional screening: No deficits noted. cc4 Tuberculosis screening: No symptoms or risk factors identified. Fall Risk None identified. Assessment: 19:41 General: Appears distressed, uncomfortable, Behavior is cooperative, anxious. Pain: cc4 Complains of pain in right foot and right first toe and right leg Pain radiates to Radiaates from right foot into right lower leg Pain currently is 10 out of 10 on a pain scale. Quality of pain is described as sharp, throbbing, Pain began 2-3 days ago. Is intermittent. Neuro: No deficits noted. Level of Consciousness is awake, alert, obeys commands, Oriented to person, place, time, situation. Cardiovascular: No deficits noted. Heart tones S1 S2. Respiratory: No deficits noted. Airway is patent Respiratory effort is even, unlabored, Respiratory pattern is regular, symmetrical. GI: No signs and/or symptoms were reported involving the gastrointestinal system. : No signs and/or symptoms were reported regarding the genitourinary system. EENT: No signs and/or symptoms were reported regarding the EENT system. Derm: Skin has blisters on Cellulitis noted right lower leg, right foot with blister noted right medial great toe with 1 cm ulcer noted plantar surface right great toe with tenderness \\T\\ increased warmth; reports having ulcer "off/on" x 15 years that has worsened this past 3 days. Musculoskeletal: No deficits noted. Range of motion: intact in all extremities. 19:50 Reassessment: # 20 g angiocath inserted right wrist x 1 attempt \\T\\ converted to saline cc4 lock with blood drawn \\T\\ sent to lab, to[facility]. [facility]. 20:00 Reassessment: No changes from previously documented assessment. Medicated as ordered cc4 for pain. 20:30 Reassessment: Patient appears in no apparent distress at this time. reports pain cc4 RLE/right foot have decreased to 4/10 on pain scale. 21:21 Reassessment: Awake/alert; reports pain right foot increasing to 10/10 on pain scale cc4 with Eduardo Burroughs NP notified with new order received; medicated as ordered. 22:30 Reassessment: Patient appears in no apparent distress at this time. Sleeping; VSS. cc4 23:40 Reassessment: Transferred to ER24 with report given to GÓMEZ Clarke \\T\\ bedside; stable. cc4 Vital Signs: 19:37 Pulse 122; Resp 20; Temp 98.7(TE); Pulse Ox 100% ; Weight 149.69 kg; Height 5 ft. 7 in. ld1 (170.18 cm); Pain 10/10; 19:41 BP 143 / 97; Pulse 114; Resp 2; Temp 98.7(O); Pulse Ox 98% on R/A; cc4 20:42 BP 115 / 79; Pulse 93; Resp 20; Pulse Ox 98% on R/A; cc4 21:00 BP 130 / 73; Pulse 97; Resp 20; Pulse Ox 100% ; cc4 21:30 BP 143 / 93; Pulse 110; Resp 20; Pulse Ox 97% on R/A; cc4 22:00 BP 114 / 82; Pulse 107; Resp 20; Pulse Ox 96% on R/A; cc4 22:30 BP 116 / 83; Pulse 103; Resp 20; Pulse Ox 96% on R/A; cc4 23:00 BP 126 / 81; Pulse 102; Resp 20; Temp 98.1; Pulse Ox 97% on R/A; cc4 19:37 Body Mass Index 51.68 (149.69 kg, 170.18 cm) ld1 ED Course: 19:27 Patient arrived in ED. bp1 19:38 Montse Burroughs FNP-C [facility]. kb 19:38 Arian Acosta MD is Attending Physician. kb 19:38 Triage completed. ld1 19:39 Arm band placed on right wrist. ld1 19:41 Patient has correct armband on for positive identification. Bed in low position. Call cc4 light in reach. Side rails up X2. Pulse ox on. NIBP on. 19:57 Mulu Suarez, RN is Primary Nurse. cc4 20:09 Foot Right 3 View XRAY Sent. cc4 20:09 US Extremity Venous Unilateral Ltd Sent. cc4 20:10 Procalcitonin Sent. cc4 20:10 Basic Metabolic Panel Sent. cc4 20:10 CBC with Diff Sent. cc4 20:14 Foot Right 3 View XRAY In Process Unspecified. EDMS 20:25 US Extremity Venous Unilateral Ltd In Process Unspecified. EDMS 21:21 Blood Culture Adult (2) Sent. tw5 21:21 Lactate Sent. tw5 21:25 Miles Hadley MD is Hospitalizing Provider. kb 22:54 COVID-19 SARS RT PCR (Document "Date of Onset" if Symptomatic) Sent. cc4 23:20 No provider procedures requiring assistance completed. cc4 23:40 Patient admitted, IV remains in place. cc4 Administered Medications: 20:00 Drug: morphine 4 mg Route: IVP; Site: right wrist; cc4 20:30 Follow up: Response: No adverse reaction; Pain is decreased cc4 20:00 Drug: Zofran (Ondansetron) 4 mg Route: IVP; Site: right wrist; cc4 20:30 Follow up: Response: No adverse reaction cc4 21:21 Drug: morphine 4 mg Route: IVP; Site: right wrist; tw5 22:30 Follow up: Response: No adverse reaction; Pain is decreased cc4 22:50 Drug: Zosyn (piperacillin-tazobactam) 3.375 grams Route: IVPB; Infused Over: 60 mins; cc4 Site: right wrist; 23:40 Follow up: Urine output 350 ml; Response: No adverse reaction; Rate change 100 ml/hr; cc4 IV Intake: 100ml 23:06 Drug: Insulin Regular Human 12 units Route: Sub-Q; Site: right upper arm; cc4 23:40 Follow up: Response: No adverse reaction cc4 Intake: 23:40 IV: 100ml; Total: 100ml. cc4 Output: 23:40 Urine: 350ml; Total: 350ml. cc4 Outcome: 21:26 Decision to Hospitalize by Provider. kb 23:40 Admitted to Med/surg accompanied by nurse, via stretcher, room ER24.. cc4 23:40 Condition: stable 23:40 Instructed on the need for admit, Demonstrated understanding of instructions. 23:57 Patient left the ED. cc4 Signatures: Dispatcher [employer] EDMS Montse Burroughs, LEILA-C MERCHANT MILLER-[facility] Cookie Rodgers RN RN ld1 Mulu Suarez RN RN cc4 Clementina Gaxiola tw5
--- NOTE | 2021-09-03 21:27 | EDPHYS ---
Physician Documentation [facility] Name: Addy Quintana Jr Age: 40 yrs Sex: Male : 1980 Arrival Date: 09/03/2021 Time: 19:27 Bed 5 Private MD: ED Physician Arian Acosta HPI: 09/03 22:20 This 40 yrs old Male presents to ER via Wheelchair with complaints of Feet kb Swelling. 22:20 The patient presents with an abscess of the right first toe. Description: erythematous, kb swollen, warm. Onset: The symptoms/episode began/occurred 2 day(s) ago. Possible cause(s): unknown. Associated signs and symptoms: Pertinent positives: erythema, swelling, Pertinent negatives: discharge, drainage, foreign body sensation, fever, headache, nausea, shortness of breath, vomiting. Modifying factors: the symptoms are alleviated by nothing, the symptoms are aggravated by pressure, touching. Severity of symptoms: At their worst the symptoms were moderate, in the emergency department the symptoms are unchanged. The patient has not experienced similar symptoms in the past. The patient has not recently seen a physician. Historical: - Allergies: 19:39 VANCOMYCIN AND DERIVATIVES; ld1 - Home Meds: 19:39 atorvastatin 40 mg Oral tab 1 tab once daily [Active]; metformin 1,000 mg Oral tab 1 ld1 tab 2 times per day [Active]; gabapentin 600 mg Oral tab 3 times per day [Active]; Tresiba FlexTouch U-100 100 unit/mL (3 mL) subcutaneous inpn [Active]; Blood pressure med- unable to remember [Active]; Rybelsus 3 mg Oral tab 1 tab once daily [Active]; - PMHx: 19:39 Blounts; Diabetes - IDDM; Diabetes - NIDDM; DVT; Hypercholesterolemia; Hypertension; ld1 neuropathy; - PSHx: 19:39 Dion knee sx; ld1 - Immunization history:: Adult Immunizations up to date, Client reports receiving the 2nd dose of the Covid vaccine. - Social history:: Smoking status: Patient reports the use of cigarette tobacco products, denies chronic smoking, but will smoke occasionally, Patient/guardian denies using alcohol. ROS: 22:17 Constitutional: Negative for fever, chills, and weight loss. kb 22:17 MS/extremity: Positive for pain, swelling, tenderness, of the right leg. 22:17 All other systems are negative. Exam: 22:18 Constitutional: This is a well developed, well nourished patient who is awake, alert, kb and in no acute distress. Head/Face: Normocephalic, atraumatic. ENT: Moist Mucous membranes Cardiovascular: Regular rate and rhythm with a normal S1 and S2. No gallops, murmurs, or rubs. No pulse deficits. Respiratory: Respirations even and unlabored. No increased work of breathing, no retractions or nasal flaring. MS/ Extremity: Pulses equal, no cyanosis. Neurovascular intact. Full, normal range of motion. Neuro: Awake and alert, GCS 15, oriented to person, place, time, and situation. Moves all extremities. Normal gait. Psych: Awake, alert, with orientation to person, place and time. Behavior, mood, and affect are within normal limits. 22:18 Skin: cellulitis, that is moderate, on the right first toe, moderate swelling and tenderness to right lower leg, cellulitis to right great toe, dime sized ulceration to bottom of right great toe. Vital Signs: 19:37 Pulse 122; Resp 20; Temp 98.7(TE); Pulse Ox 100% ; Weight 149.69 kg; Height 5 ft. 7 in. ld1 (170.18 cm); Pain 10/10; 19:41 BP 143 / 97; Pulse 114; Resp 2; Temp 98.7(O); Pulse Ox 98% on R/A; cc4 20:42 BP 115 / 79; Pulse 93; Resp 20; Pulse Ox 98% on R/A; cc4 21:00 BP 130 / 73; Pulse 97; Resp 20; Pulse Ox 100% ; cc4 21:30 BP 143 / 93; Pulse 110; Resp 20; Pulse Ox 97% on R/A; cc4 22:00 BP 114 / 82; Pulse 107; Resp 20; Pulse Ox 96% on R/A; cc4 22:30 BP 116 / 83; Pulse 103; Resp 20; Pulse Ox 96% on R/A; cc4 23:00 BP 126 / 81; Pulse 102; Resp 20; Temp 98.1; Pulse Ox 97% on R/A; cc4 19:37 Body Mass Index 51.68 (149.69 kg, 170.18 cm) ld1 MDM: 19:38 Patient medically screened. kb 22:18 Data reviewed: vital signs, nurses notes. Data interpreted: Pulse oximetry: on room air kb is 100 %. Interpretation: normal. Counseling: I had a detailed discussion with the patient and/or guardian regarding: the historical points, exam findings, and any diagnostic results supporting the discharge/admit diagnosis, lab results, radiology results, the need for further work-up and treatment in the hospital. Physician consultation: Eugene NORRIS regarding admission, patient's condition. 09/03 19:40 Order name: CBC with Diff; Complete Time: 20:28 kb 09/03 19:40 Order name: Basic Metabolic Panel; Complete Time: 20:41 kb 09/03 19:40 Order name: Lactate; Complete Time: 21:39 kb 09/03 19:40 Order name: Procalcitonin; Complete Time: 20:54 kb 09/03 19:40 Order name: Blood Culture Adult (2) kb 09/03 21:29 Order name: COVID-19 SARS RT PCR (Document "Date of Onset" if Symptomatic); Complete kb Time: 23:05 09/03 19:40 Order name: US Extremity Venous Unilateral Ltd; Complete Time: 21:16 kb 09/03 19:40 Order name: Foot Right 3 View XRAY; Complete Time: 21:23 kb 09/03 21:56 Order name: CONS Physician Consult; Complete Time: 22:54 EDMS 09/03 19:40 Order name: IV Start; Complete Time: 20:10 kb Administered Medications: 20:00 Drug: morphine 4 mg Route: IVP; Site: right wrist; cc4 20:30 Follow up: Response: No adverse reaction; Pain is decreased cc4 20:00 Drug: Zofran (Ondansetron) 4 mg Route: IVP; Site: right wrist; cc4 20:30 Follow up: Response: No adverse reaction cc4 21:21 Drug: morphine 4 mg Route: IVP; Site: right wrist; tw5 22:30 Follow up: Response: No adverse reaction; Pain is decreased cc4 22:50 Drug: Zosyn (piperacillin-tazobactam) 3.375 grams Route: IVPB; Infused Over: 60 mins; cc4 Site: right wrist; 23:40 Follow up: Urine output 350 ml; Response: No adverse reaction; Rate change 100 ml/hr; cc4 IV Intake: 100ml 23:06 Drug: Insulin Regular Human 12 units Route: Sub-Q; Site: right upper arm; cc4 23:40 Follow up: Response: No adverse reaction cc4 Disposition: 09/04 01:30 Co-signature as Attending Physician, Arian Acosta MD. [email or web address] Disposition Summary: 09/03/21 21:26 Hospitalization Ordered Hospitalization Status: Inpatient Admission kb Provider: Miles Hadley Condition: Stable kb Problem: new kb Symptoms: are unchanged kb Bed/Room Type: Standard kb Location: [facility] ER HOLD(09/03/21 22:46) Room Assignment: ERHOLD-(09/03/21 22:46) cg Diagnosis - Osteomyelitis, unspecified kb Forms: - Medication Reconciliation Form kb - SBAR form kb Signatures: Dispatcher [employer] EDMontse Mora, Isabel Adams RN RN Arian Acosta MD MD [facility] Cookie Rodgers RN RN ld1 Muul Suarez RN RN cc4 Clementina Gaxiola 5 Corrections: (The following items were deleted from the chart) 09/03 22:46 21:26 Telemetry/MedSurg (Inpatient) [facility] 22:46 21:26 kb
[2021-09-03] MEDS ORDERED: NA CHLORIDE 0.9% 100 ML ONE (22:43)
[2021-09-03] MEDS ORDERED: PIPERACIL/TAZO 3.375 GM VIAL IV ONE (22:43)
[2021-09-03] MEDS ORDERED: INSULIN -REGULAR HUMAN 50 UNIT/0.5 ML ML ONE (23:03)
--- NOTE | 2021-09-03 23:32 | P.HP ---
Certification for Inpatient Patient admitted to: Inpatient With expected LOS: >2 Midnights Patient will require the following post-hospital care: None Practitioner: I am a practitioner with admitting privileges, knowledge of patient current condition, hospital course, and medical plan of care. Services: Services provided to patient in accordance with Admission requirements found in Title 42 Section 412.3 of the Code of Federal Regulations Patient History Date of Service: 09/03/21 Primary Care Provider: Charles Reason for admission: osteomyelitis History of Present Illness: Mr. Quintana is a 40 yo M with uncontrolled type 2 diabetes mellitus who presents with 4 fdays of increased erythema, edema, warmth and pain in his right foot. There is a dime-sized diabetic ulcer present on his right big toe as well as purulent drainage. He reports night sweats, denies nause and vomiting. He says he has had issues with his foot on and off for the past 14 years. He says he has not been taking his insulin because he [place] of state [place] 3 [place] and unable to obtain his medication. Glu 342 Right Foot XRAY FINDINGS: Moderate soft tissue swelling affects the great toe. Ulceration is seen along the plantar aspect of the great toe soft tissues. Bony destructive changes involving the distal aspect of the proximal phalanx of the great toe likely represents osteomyelitis. Right Venous US IMPRESSION: No evidence of right lower extremity deep venous thrombosis. Allergies vancomycin Allergy (Severe, Verified 11/25/14 14:53) Hives/Rash Home Medications: Gabapentin 600 mg PO BID 05/25/20 Metformin HCl 1,000 mg PO BID 05/25/20 - Past Medical/Surgical History Diabetic: Yes -: Diabetes -: diabetic ulcers -: neuropathy -: sleep apnea -: DVT R leg -: vericose veins -: lymphedema -: rhabdomyolysis -: HTN -: jarvis lower leg surgery: broke and straightened -: debridement bilat great toes -: BLE vein surgery -: tonsillectomy - Family History Father -: Diabetes Mother -: Diabetes - Social History Smoking Status: Current some day smoker Alcohol use: Yes CD- Drugs: No Caffeine use: Yes Place of Residence: Home Review of Systems 10-point ROS is otherwise unremarkable General: Sweats Eyes: Unremarkable ENT: Unremarkable Respiratory: Unremarkable Cardiovascular: Unremarkable Gastrointestinal: Unremarkable Genitourinary: Unremarkable Musculoskeletal: Foot Pain Integumentary: Unremarkable Neurological: Unremarkable Lymphatics: Unremarkable Physical Examination - Physical Exam General: Alert, In no apparent distress, Obese HEENT: Atraumatic, PERRLA, Mucous membr. moist/pink, EOMI, Sclerae nonicteric Neck: Supple, 2+ carotid pulse no bruit, No LAD, Without JVD or thyroid abnormality Respiratory: Clear to auscultation bilaterally, Normal air movement Cardiovascular: Regular rate/rhythm, Normal S1 S2 Gastrointestinal: Normal bowel sounds, No tenderness Musculoskeletal: Swelling, Erythema, Tenderness, Warmth Integumentary: Tenderness/swelling, Erythema, Warmth, Diabetic ulcer Neurological: Normal speech, Normal strength at 5/5 x4 extr, Normal tone, Normal affect Lymphatics: No axilla or inguinal lymphadenopathy - Studies Laboratory Data (last 24 hrs) 09/03/21 19:50: Sodium 139, Potassium 3.7, BUN 20 H, Creatinine 0.92, Glucose 364 H 09/03/21 19:50: WBC 8.90, Hgb 14.0, Hct 42.5, Plt Count 237 Assessment and Plan - Problems (Diagnosis) (1) Osteomyelitis Current Visit: Yes Status: Acute Qualifiers: Osteomyelitis type: unspecified type Osteomyelitis location: foot Laterality: right Qualified Code(s): M86.9 - Osteomyelitis, unspecified (2) Diabetes mellitus Onset Date: 07/22/14 Current Visit: No Status: Chronic Qualifiers: Diabetes mellitus type: type 2 Diabetes mellitus long-term insulin use: with long-term use Diabetes mellitus complication status: with skin complications Diabetes mellitus complication detail: with foot ulcer Qualified Code(s): E11.621 - Type 2 diabetes mellitus with foot ulcer; L97.509 - Non-pressure chronic ulcer of other part of unspecified foot with unspecified severity; Z79.4 - exterminator (current) use of insulin (3) Diabetic foot ulcer Current Visit: No Status: Acute Qualifiers: Diabetic foot ulcer location: toe Diabetes mellitus type: type 2 Laterality: right Non-pressure ulcer stage: with bone involvement without evidence of necrosis Qualified Code(s): E11.621 - Type 2 diabetes mellitus with foot ulcer; L97.516 - Non-pressure chronic ulcer of other part of right foot with bone involvement without evidence of necrosis (4) Morbid obesity Onset Date: 07/22/14 Current Visit: No Status: Chronic - Plan ID consulted, surgery consulted continue IV Zosyn, blood cultures and wound culture pending continue IVF fluids pain management as needed A1c pending, sliding scale insulin and accuchecks diabetes education DVT ppx Discharge Plan: Home Plan to discharge in: Greater than 2 days - Advance Directives Does patient have a Living Will: No Does patient have a Durable POA for Healthcare: No - Code Status/Comfort Care Code Status Assessed: Yes (full code ) Critical Care: No Time Spent Managing Pts Care (In Minutes): 70
[2021-09-03] MEDS ORDERED: ONDANSETRON 4 MG/2 ML VIAL IV PRN (23:53)
[2021-09-04] MEDS ORDERED: NA CHLORIDE 0.9% 1,000 ML ONE ×2 (00:21→11:58)
[2021-09-04] MEDS ORDERED: MORPHINE 2 MG/ML SYR ONE ×3 (00:21→12:01)
[2021-09-04] MEDS ORDERED: GABAPENTIN 300 MG CAP ONE ×3 (00:21→08:59)
[2021-09-04] MEDS: MORPHINE 2 MG/ML SYR IV PRN ×6 (00:24→23:37)
[2021-09-04] MEDS: NA CHLORIDE 0.9% 1,000 ML IV SCH ×4 (00:25→19:53)
[2021-09-04] MEDS: GABAPENTIN 300 MG CAP PO SCH ×3 (00:25→19:48)
[2021-09-04 00:26] LABS: Urine Appearance Clear (Clear); Urine Bilirubin Negative (Negative); Urine Blood Trace-intact (Negative); Urine Color Yellow (Yellow); Urine Glucose 3+ (Negative); Urine Microscopic Reflex ORDER UMIC; Urine Protein Negative (Negative); Urine Specific Gravity 1.025 (1.005-1.030)
[2021-09-04 00:54] LABS: Barbiturates NEGATIVE (NEGATIVE); Benzodiazepines NEGATIVE (NEGATIVE); Cocaine NEGATIVE (NEGATIVE); METHAMPHETAM NEGATIVE (NEGATIVE); Methadone NEGATIVE (NEGATIVE); Opiates POSITIVE (NEGATIVE); Phencyclidine NEGATIVE (NEGATIVE); THC Cannibis NEGATIVE (NEGATIVE)
[2021-09-04 01:00] LABS: Urine Bacteria <20 /HPF (NONE SEEN); Urine RBC <5 /HPF (NONE SEEN); Urine Urothelial Cells <5 /HPF (NONE SEEN)
[2021-09-04] MEDS ORDERED: FENTANYL CITR 100 MCG/2 ML IV ONE (01:11)
[2021-09-04] MEDS ORDERED: FENTANYL CITR 100 MCG/2 ML ONE (01:16)
[2021-09-04 03:41] LABS: Absolute Lymphocytes (CBC) 2.1 K/uL (0.7-4.9); Basophils % 0.6 % (0-1.3); Hematocrit 37.4 % (39.6-49.0); Lymphocytes % 31.5 % (15.3-44.8); MPV 8.7 fL (7.6-11.3); RBC Red Blood Cell Count 4.35 M/uL (4.33-5.43)
[2021-09-04 03:59] LABS: ALT/SGPT 20 U/L (12-78); AST/SGOT 7 U/L (15-37); Albumin 2.5 g/dL (3.4-5.0); Alkaline Phosphatase 72 U/L (45-117); BUN Blood Urea Nitrogen 22 mg/dL (7-18); Bicarbonate 27 mmol/L (21-32); Bilirubin Total 0.2 mg/dL (0.2-1.0); Glucose Level 286 mg/dL (74-106); HDL Cholesterol 28 mg/dL (40-60); LDL Cholesterol, Calculated 75 (<130); Magnesium 1.6 mg/dL (1.8-2.4); NT PRO-BNP 44 pg/mL (<125); Phosphorus 2.9 mg/dL (2.5-4.9); Potassium 3.5 mmol/L (3.5-5.1); Sodium Level 141 mmol/L (136-145); Thyroid Stimulating Hormone 0.577 uIU/mL (0.360-3.740)
[2021-09-04] MEDS ORDERED: MAGNESIUM SULFATE 1 gm IVPB 1 GM/100 ML BAG IV ONE ×2 (04:06→04:15)
[2021-09-04] MEDS: INSULIN -REGULAR HUMAN 50 UNIT/0.5 ML ML SQ SCH ×4 (04:45→19:49)
[2021-09-04] MEDS ORDERED: PIPERACIL/TAZO 3.375 GM VIAL IV ONE ×2 (05:04→08:00)
[2021-09-04] MEDS ORDERED: NA CHLORIDE 0.9% 0 ML ONE (05:04)
[2021-09-04] MEDS: PIPER TAZO 3.375 GM in NA CHLORIDE 0.9% 100 ML IV SCH ×2 (05:09→08:04)
[2021-09-04] MEDS ORDERED: KCL 20 MEQ/100 mL IVPB 20 MEQ/100 ML BAG IV ONE ×2 (07:59→09:00)
[2021-09-04] MEDS ORDERED: INFLUENZA VACCINE (for 6+ mo) 0.5 ML DOSE IMVAC ONE (08:00)
[2021-09-04] MEDS ORDERED: NA CHLORIDE 0.9% 100 ML ONE (08:01)
[2021-09-04] MEDS ORDERED: INSULIN -REGULAR HUMAN 50 UNIT/0.5 ML ML ONE (11:58)
--- NOTE | 2021-09-04 15:07 | P.CNS ---
Date of Consult: 09/04/21 Primary Care Provider: Charles Chief Complaint: osteomyelitis History of Present Illness: The patient is a 40-year-old male with a past medical history of uncontrolled diabetes type 2 and osteomyelitis who presented to the emergency department secondary to worsening pain, redness, and swelling in his right big toes. Patient also noted purulent drainage. Patient states that he has had issues with his bilateral feet for the past 14 years and has wounds off and on. He states that he was seen by wound care clinic in [facility]. Patient was previously treated for osteomyelitis on his left great hallux with 6 weeks of IV antibiotics. On admission foot x-ray showed osteomyelitis of the right proximal phalanx of the great toe. Patient is noted to have allergy to vancomycin, empirically started on Zosyn. Of note patient has a hemoglobin A1c of 11.1. Patient denies nausea/vomiting/diarrhea/shortness breath/chest pain. Allergies vancomycin Allergy (Severe, Verified 09/04/21 00:03) Hives/Rash Home Medications: Gabapentin 600 mg PO BID 05/25/20 Metformin HCl 1,000 mg PO BID 05/25/20 Insulin Degludec [Tresiba Flextouch U-100] 20 unit SQ SEECOM 09/04/21 Insulin Degludec [Tresiba Flextouch U-100] 32 unit SQ SEECOM 09/04/21 - Past Medical/Surgical History Diabetic: Yes -: Diabetes -: diabetic ulcers -: neuropathy -: sleep apnea -: DVT R leg -: vericose veins -: lymphedema -: rhabdomyolysis -: HTN -: jarvis lower leg surgery: broke and straightened -: debridement bilat great toes -: BLE vein surgery -: tonsillectomy - Family History Father Medical History: Diabetes Mother Medical History: Diabetes - Social History Smoking Status: Current some day smoker Alcohol use: No CD- Drugs: No Caffeine use: Yes Place of Residence: Home Review of Systems 10-point ROS is otherwise unremarkable Physical Examination Temp Pulse Resp BP Pulse Ox 98.1 F 82 17 121/65 97 09/04/21 12:00 09/04/21 12:00 09/04/21 12:00 09/04/21 12:00 09/04/21 12:00 General: In no apparent distress, Oriented x3, Obese HEENT: Normocephalic Neck: Supple, 2+ carotid pulse no bruit, JVD not distended Respiratory: Clear to auscultation bilaterally, Normal air movement Cardiovascular: Normal pulses, Regular rate/rhythm Gastrointestinal: Normal bowel sounds, Soft and benign Integumentary: Diabetic ulcer (To right great hallux: Gina wound tissue erythematous and swollen. Wound draining purulent drainage.) Laboratory Data (last 24 hrs) 09/03/21 19:50: Sodium 139, Potassium 3.7, BUN 20 H, Creatinine 0.92, Glucose 364 H 09/03/21 19:50: WBC 8.90, Hgb 14.0, Hct 42.5, Plt Count 237 Conclusions/Impression: Antibiotics: Cefepime Start: 09/04 Doxycycline Start: 09/04 Assessment/plan Right great hallux diabetic foot ulcer with osteomyelitis X-ray shows osteomyelitis of the proximal phalanx of the great toe. Patient will need IV antibiotics for 6 weeks duration. Recommend PICC line placement. Patient will need weekly labs including: CBC, BMP, CRP, ESR. Local wound care: Apply Medihoney and wrapped with Kerlix. Protein caloric malnutrition Albumin of 2.5. Recommend supplemental Ensure protein drinks, adequate nutrition needed for proper wound healing. Diabetes Hemoglobin A1c of 11.1%. Strict glucose control needed for proper wound healing and infection control. If blood sugar levels are not controlled antibiotics will likely be unsuccessful. Anemia Continue to monitor H&H Medical management per primary team Plan of care discussed with Dr. andrews Thank you for consultation
[2021-09-04] MEDS ORDERED: CEFEPIME 2 GM VIAL IV SCH (16:00)
--- NOTE | 2021-09-04 16:20 | CON ---
Date of Consultation: 09/04/2021 Reason For Consultation: Infection of right great toe. History Of Present Illness: The patient is a 40-year-old gentleman, who has had a long history of di abetic ulcers over the last 15 years, but recently over the last couple of months, he has noticed an ulcer that was nonhealing and over the last 4 days, he noticed increasing redness, swelling, drainage and pain in his right foot. He came to the emergency room. He was admitted for further workup and treatment. He is awake, alert. Denies any sore throat, runny nose, cough, headaches, dizziness, or chest pain. He does have occasional night sweats, no fever, and does have drainage from the wound on the plantar aspect of the right great toe. Review of Systems: Otherwise unremarkable. Past Medical History: Significant for diabetes, neuropathy, sleep apnea, DVT of right leg, lymphedem a, hypertension. Past Surgical History: Bilateral lower leg surgery for fractures, vein surgery in the lower extremit y, tonsillectomy, and debridement of the toe wounds. Allergies: INCLUDE VANCOMYCIN. Social History: He does smoke, has been counseled. Does drink alcohol and has been counseled. Family History: Significant for diabetes. Physical Examination: Vital Signs: Stable. He is afebrile. General: He is awake, alert, and oriented x3. Head and Neck: Cranial nerves 2 through 12 are grossly within normal limits. No neck masses. No JV D. Throat clear. Neck is supple. Chest: Clear. Heart: S1, S2. Abdomen: Soft. Extremity: Diminished dorsalis pedis and posterior tibial pulses. On the right great toe, there is edema, erythema, warmth, tenderness and extensive forefoot on the medial aspect. There is an ulcer o n the plantar aspect and there is a questionable fluctuance on the dorsum. Laboratory Data: Reviewed. White count was normal. There is no left shift on the CBC. On the chem istry, he has hyperglycemia. Hemoglobin A1c is 11.1. Lactic acid is 1.8. Procalcitonin is less arash n 0.05. Has an x-ray of the foot and extremity venous study. Extremity venous study does not show a ny evidence of DVT. The x-ray shows swelling that is affecting the great toe, ulceration on the plan tar aspect, bony destructive changes involving the distal aspect of the proximal phalanx of the great toe likely represent osteomyelitis. Assessment: A 40-year-old gentleman with multiple medical problems with right great toe diabetic inf ection with osteo and peripheral vascular disease likely. Recommendations: Continue IV antibiotics. Check the cultures. Adjust the antibiotics accordingly. I would recommend getting an MRI and arterial Dopplers to evaluate his circulation to see if he has any abscess that needs to be incised and drained on the right great toe. Probably need some debridem ent of the ulcer as well. Plan of care discussed with Dr. Hadley and the patient. We will make furthe r recommendation after the workup has been completed and we will follow this patient while in the [facility]. /MODL Voice ID: [id number] Report ID: [id number]
--- NOTE | 2021-09-04 17:12 | RAD REPORT ---
EXAM DESCRIPTION: MRI - Foot Right Wo Cont - 09/04/2021 4:56 pm CLINICAL HISTORY: rule out osteo to right great toe Pain and swelling COMPARISON: No comparisons FINDINGS: Significant elevated T2 and diminished T1 signal involves the majority of the proximal pha lanx of the great toe and the entirety of the distal phalanx of the great toe bony erosion present. T his is most compatible with moderately severe osteomyelitis. No localized soft tissue fluid collectio ns are seen. No acute fracture or subluxation. Moderate soft tissue edema is seen about the ankle. IMPRESSION: Moderately severe osteoarthritis affects the great toe proximal and distal phalanx.
[2021-09-04] MEDS: ENOXAPARIN 40 MG/0.4 ML SQ SCH (17:21)
[2021-09-04] MEDS: CEFEPIME 2 GM in NA CHLORIDE 0.9% 100 ML IV SCH (17:22)
--- NOTE | 2021-09-04 18:18 | RAD REPORT ---
EXAM DESCRIPTION: US - Lower Extremity Arterial Bilat - 09/04/2021 6:10 pm CLINICAL HISTORY: check for blockage of lower extremities Leg pain, claudication COMPARISON: Lower Extremity Arterial Bilat dated 02/14/2019 TECHNIQUE: Bilateral lower extremity arterial Doppler examination was performed with lashawn alarcon FINDINGS: Monophasic waveforms are seen throughout the right lower extremity arterial system. No occlusion is s een. Triphasic waveforms are seen throughout the left lower extremity arterial system. No stenosis or occl usion of significance. Prominent right groin lymph node is present. IMPRESSION: Monophasic waveforms are seen throughout the right lower extremity arterial system. Thes e findings likely indicate a significant inflow stenosis.
[2021-09-04] MEDS: ACETAMINOPHEN 500 MG TAB PO PRN ×2 (18:33→23:36)
[2021-09-04] MEDS: DOXYCYCLINE 100 MG in NA CHLORIDE 0.9% 100 ML IVPB SCH (19:49)
[2021-09-04 21:23] VITALS: BMI 51.4
[2021-09-05] MEDS: NA CHLORIDE 0.9% 1,000 ML IV SCH ×2 (03:33→16:42)
[2021-09-05] MEDS: MORPHINE 2 MG/ML SYR IV PRN ×6 (03:33→23:56)
[2021-09-05 05:48] LABS: BUN Blood Urea Nitrogen 18 mg/dL (7-18); Bicarbonate 29 mmol/L (21-32); Glucose Level 186 mg/dL (74-106); Magnesium 1.8 mg/dL (1.8-2.4); Potassium 3.8 mmol/L (3.5-5.1); Sodium Level 139 mmol/L (136-145)
[2021-09-05] MEDS: MEDIHONEY 44 ML TOPICAL TUBE TOP SCH (08:12)
[2021-09-05] MEDS: GABAPENTIN 300 MG CAP PO SCH ×2 (08:13→19:58)
[2021-09-05] MEDS: INSULIN -REGULAR HUMAN 50 UNIT/0.5 ML ML SQ SCH ×4 (08:26→21:06)
[2021-09-05] MEDS: DOXYCYCLINE 100 MG in NA CHLORIDE 0.9% 100 ML IVPB SCH ×2 (08:30→19:59)
[2021-09-05] MEDS ORDERED: MAGNESIUM SULFATE 1 gm IVPB 1 GM/100 ML BAG IV ONE (09:00)
[2021-09-05] MEDS ORDERED: POTASSIUM CL SA 10 MEQ TAB PO ONE (09:00)
--- NOTE | 2021-09-05 11:23 | P.PN ---
Subjective Date of Service: 09/05/21 Primary Care Provider: Charles Chief Complaint: osteomyelitis Patient seen examined at bedside, doing well no acute complaints. Tolerating antibiotics well with no nausea/vomiting/diarrhea. Surgical T plans take patient to OR tomorrow for debridement of wound. Review of Systems 10-point ROS is otherwise unremarkable Physical Examination - Vital Signs Temperature: 98.2 F Blood Pressure: 126/61 Pulse: 63 Respirations: 17 Pulse Ox (%): 98 - Studies Laboratory Last Values WBC 8.90 K/uL (4.3-10.9) 09/03/21 19:50 RBC 4.97 M/uL (4.33-5.43) 09/03/21 19:50 Hgb 14.0 g/dL (13.6-17.9) 09/03/21 19:50 Hct 42.5 % (39.6-49.0) 09/03/21 19:50 MCV 85.5 fL (80-100) 09/03/21 19:50 MCH 28.2 pg (27.0-35.0) 09/03/21 19:50 MCHC 33.0 g/dL (32.0-36.0) 09/03/21 19:50 RDW 13.8 % (12.1-15.2) 09/03/21 19:50 Plt Count 237 K/uL (152-406) 09/03/21 19:50 MPV 9.0 fL (7.6-11.3) 09/03/21 19:50 Neutrophils % 63.6 % (41.7-73.7) 09/03/21 19:50 Lymphocytes % 26.5 % (15.3-44.8) 09/03/21 19:50 Monocytes % 8.3 % (3.3-12.3) 09/03/21 19:50 Eosinophils % 1.1 % (0-4.4) 09/03/21 19:50 Basophils % 0.5 % (0-1.3) 09/03/21 19:50 Absolute Neutrophils 5.7 K/uL (1.8-8.0) 09/03/21 19:50 Absolute Lymphocytes 2.4 K/uL (0.7-4.9) 09/03/21 19:50 Absolute Monocytes 0.7 K/uL (0.1-1.3) 09/03/21 19:50 Absolute Eosinophils 0.1 K/uL (0-0.5) 09/03/21 19:50 Absolute Basophils 0.0 K/uL (0-0.5) 09/03/21 19:50 Sodium 139 mmol/L (136-145) 09/03/21 19:50 Potassium 3.7 mmol/L (3.5-5.1) 09/03/21 19:50 Chloride 103 mmol/L (98-107) 09/03/21 19:50 Carbon Dioxide 27 mmol/L (21-32) 09/03/21 19:50 BUN 20 mg/dL (7-18) H 09/03/21 19:50 Creatinine 0.92 mg/dL (0.55-1.3) 09/03/21 19:50 Estimated GFR > 90 mL/min (=/>90) 09/03/21 19:50 Glucose 364 mg/dL (74-106) H 09/03/21 19:50 Lactic Acid 1.8 mmol/L (0.4-2.0) 09/03/21 20:45 Calcium 9.5 mg/dL (8.5-10.1) 09/03/21 19:50 Procalcitonin < 0.05 ng/mL (<0.050) 09/03/21 19:50 SARS-CoV-2 Rap RNA(RT-PCR) Negative (NEGATIVE) 09/03/21 22:10 Assessment And Plan - Plan Physical exam: General: In no apparent distress, Oriented x3, Obese HEENT: Normocephalic Neck: Supple, 2+ carotid pulse no bruit, JVD not distended Respiratory: Clear to auscultation bilaterally, Normal air movement Cardiovascular: Normal pulses, Regular rate/rhythm Gastrointestinal: Normal bowel sounds, Soft and benign Integumentary: Diabetic ulcer (To right great hallux: Gina wound tissue erythematous and swollen. Wound has purulent drainage.) Conclusions/Impression: Antibiotics: Cefepime Start: 09/04 Doxycycline Start: 09/04 Assessment/plan Right great hallux diabetic foot ulcer with osteomyelitis X-ray and MRI shows osteomyelitis of the proximal and distal phalanx of the right great toe. Patient will need IV antibiotics for 6 weeks duration. Continue empiric coverage at this time with cefepime and doxycycline. Wound cultures growing beta-hemolytic strep and gram-negative rods, pending susceptibility. Will tailor antibiotics based off full wound culture report. Recommend PICC line placement. Continue to trend inflammatory markers, CRP and ESR pending. On discharge patient will need weekly labs including: CBC, BMP, CRP, ESR. Local wound care: Apply Medihoney and wrapped with Kerlix. Peripheral vascular disease Arterial Doppler showed monophasic waveforms, patient will likely need vascular surgery consultation. Protein caloric malnutrition Albumin of 2.5. Recommend supplemental Ensure protein drinks, adequate nutrition needed for proper wound healing. Diabetes Hemoglobin A1c of 11.1%. Strict glucose control needed for proper wound healing and infection control. If blood sugar levels are not controlled antibiotics will likely be unsuccessful. Anemia Continue to monitor H&H Medical management per primary team Plan of care discussed with Dr. andrews Thank you for consultation
--- NOTE | 2021-09-05 11:54 | PN ---
Date of Progress Note: 09/05/2021 Subjective: The patient is awake alert, no complaint. Objective: Vitals: Stable, afebrile. On physical exam, the redness and edema have improved. There is an ulcer on the plantar aspect of th e first toe and there is probably a blister or superficial abscess on the dorsum of the toe. Laboratory Data: Reviewed. MRI shows extensive osteoarthritis in the proximal distal phalanx of the right great toe. Doppler reveals monophasic flow indicating inflow issues. Assessment: Right diabetic great toe infection with ulcer and superficial abscess and peripheral vas cular disease. Recommendation: The patient will need a PICC line for 6 weeks, IV antibiotics. Will need cardiology evaluation for an angiogram and intervention indicated. Discharge planning. We will take the patient to the OR tomorrow for incision, drainage and debridement of the right great toe ulcer and abscess. The patient understands the risks, benefits, and alternatives and agrees to procedure. NORMA/SUSANA Voice ID: [id number] Report ID: [id number]
[2021-09-05] MEDS: ENOXAPARIN 40 MG/0.4 ML SQ SCH (17:31)
[2021-09-05] MEDS: CEFEPIME 2 GM in NA CHLORIDE 0.9% 100 ML IV SCH (17:31)
[2021-09-05] MEDS: ACETAMINOPHEN 500 MG TAB PO PRN (19:58)
[2021-09-06] MEDS: MORPHINE 2 MG/ML SYR IV PRN ×4 (03:49→19:53)
[2021-09-06 07:29] LABS: BUN Blood Urea Nitrogen 10 mg/dL (7-18); Bicarbonate 28 mmol/L (21-32); Glucose Level 180 mg/dL (74-106); Magnesium 1.7 mg/dL (1.8-2.4); Phosphorus 2.9 mg/dL (2.5-4.9); Potassium 4.1 mmol/L (3.5-5.1); Sodium Level 141 mmol/L (136-145)
[2021-09-06] MEDS: INSULIN -REGULAR HUMAN 50 UNIT/0.5 ML ML SQ SCH ×4 (07:30→20:33)
[2021-09-06] MEDS: GABAPENTIN 300 MG CAP PO SCH ×2 (08:08→19:54)
[2021-09-06] MEDS: MEDIHONEY 44 ML TOPICAL TUBE TOP SCH (08:08)
[2021-09-06] MEDS: DOXYCYCLINE 100 MG in NA CHLORIDE 0.9% 100 ML IVPB SCH (08:26)
[2021-09-06] MEDS ORDERED: BUPIVACAINE 0.5% PF 10 ML VIAL ONE (10:09)
[2021-09-06] MEDS ORDERED: propofoL 200 MG/20 ML VIAL IV ONE (10:11)
[2021-09-06] MEDS ORDERED: FENTANYL CITR 100 MCG/2 ML ONE (10:11)
[2021-09-06] MEDS ORDERED: LIDOCAINE 1% MPF 5 ML VIAL ONE (10:11)
[2021-09-06] MEDS ORDERED: ONDANSETRON 4 MG/2 ML VIAL ONE (10:46)
[2021-09-06] MEDS ORDERED: COLLAGENASE 30 GM OINTMENT TOP ONE (10:47)
--- NOTE | 2021-09-06 10:56 | P.OP ---
Turner Machine: NONE,NONE Preoperative diagnosis: Right great toe diabetic infection with osteomyelitis Postoperative diagnosis: same Primary procedure: I and D and Debridement Right Great Toe Diabetic Infection Anesthesia: General Estimated blood loss: min Specimen: C&S and Debridement tissue Findings: as above Complications: None Transferred to: Recovery Room Condition: Good
[2021-09-06] MEDS: MORPHINE 4 MG/ML SYR ONE ×2 (11:30→11:36)
--- NOTE | 2021-09-06 11:31 | P.PN ---
Subjective Date of Service: 09/04/21 Chart reviewed. Agree with continue with IV antibiotic therapy. MRI pending. Review of Systems 10-point ROS is otherwise unremarkable Physical Examination - Vital Signs Temperature: 98.1 F Blood Pressure: 127/69 Pulse: 82 Respirations: 18 Pulse Ox (%): 96 - Physical Exam General: Alert, In no apparent distress, Oriented x3 HEENT: Atraumatic, PERRLA, EOMI Neck: Supple, JVD not distended Respiratory: Clear to auscultation bilaterally, Normal air movement Cardiovascular: Regular rate/rhythm, Normal S1 S2 Gastrointestinal: Normal bowel sounds, Soft and benign, Non-distended, No tenderness Musculoskeletal: Swelling, Erythema, Tenderness, Warmth Neurological: Normal strength at 5/5 x4 extr, Cranial nerves 3-12 intact, Abnormal sensation - Studies Medications List Reviewed: Yes Assessment & Plan - Problems (Diagnosis) (1) Osteomyelitis Current Visit: Yes Status: Acute Qualifiers: Osteomyelitis type: unspecified type Osteomyelitis location: foot Laterality: right Qualified Code(s): M86.9 - Osteomyelitis, unspecified (2) Diabetes mellitus Onset Date: 07/22/14 Current Visit: No Status: Chronic Qualifiers: Diabetes mellitus type: type 2 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 Continue with IV antibiotic 2. Continue with local wound care 3. Wound care consultation/surgical consultation 4. Gentle IV hydration 5. Monitor CBC 6. Strict blood sugar monitoring 7. Pain control 8. Arterial Doppler 9. GI and DVT prophylaxis Discharge Plan: Home Plan to discharge in: Greater than 2 days - Advance Directives Does patient have a Living Will: No Does patient have a Durable POA for Healthcare: No - Code Status/Comfort Care Code Status Assessed: Yes Code Status: Full Code Critical Care: No Time Spent Managing PTS Care (In Minutes): 35
--- NOTE | 2021-09-06 11:32 | P.PN ---
Date of Service: 09/06/21 Subjective Review of Systems 10-point ROS is otherwise unremarkable Physical Examination - Vital Signs Reviewed - Physical Exam General: Alert, In no apparent distress, Oriented x3 Respiratory: Clear to auscultation bilaterally, Normal air movement Cardiovascular: Regular rate/rhythm, Normal S1 S2 Gastrointestinal: Normal bowel sounds, Soft and benign, Non-distended, No tenderness Musculoskeletal: Swelling, Erythema, Tenderness, Warmth Neurological: Normal strength at 5/5 x4 extr, Cranial nerves 3-12 intact, Abnormal sensation Assessment & Plan - Problems (Diagnosis) (1) Osteomyelitis Current Visit: Yes Status: Acute Qualifiers: Osteomyelitis type: unspecified type Osteomyelitis location: foot Laterality: right Qualified Code(s): M86.9 - Osteomyelitis, unspecified (2) Diabetes mellitus Onset Date: 07/22/14 Current Visit: No Status: Chronic Qualifiers: Diabetes mellitus type: type 2 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 Continue with IV antibiotic 2. Continue with local wound care 3. Wound care consultation/surgical consultation 4. Hep-Lock IV 5. Monitor labs 6. Strict blood sugar monitoring 7. Pain control 8. Arterial Doppler revealed peripheral arterial disease; cardiology consultation 9. GI and DVT prophylaxis
--- NOTE | 2021-09-06 11:32 | P.PN ---
Date of Service: 09/05/21 Subjective Patient continues to do well. Arterial Doppler showed peripheral arterial disease. Cardiology consultation Review of Systems 10-point ROS is otherwise unremarkable Physical Examination - Vital Signs Reviewed - Physical Exam General: Alert, In no apparent distress, Oriented x3 Respiratory: Clear to auscultation bilaterally, Normal air movement Cardiovascular: Regular rate/rhythm, Normal S1 S2 Gastrointestinal: Normal bowel sounds, Soft and benign, Non-distended, No tenderness Musculoskeletal: Swelling, Erythema, Tenderness, Warmth Neurological: Normal strength at 5/5 x4 extr, Cranial nerves 3-12 intact, Abnormal sensation Assessment & Plan - Problems (Diagnosis) (1) Osteomyelitis Current Visit: Yes Status: Acute Qualifiers: Osteomyelitis type: unspecified type Osteomyelitis location: foot Laterality: right Qualified Code(s): M86.9 - Osteomyelitis, unspecified (2) Diabetes mellitus Onset Date: 07/22/14 Current Visit: No Status: Chronic Qualifiers: Diabetes mellitus type: type 2 Diabetes mellitus residential insulin use: with technician terminal and repeater use Diabetes mellitus complication status: with skin complications Diabetes mellitus complication detail: with foot ulcer Qualified Code(s): E11.621 - Type 2 diabetes mellitus with foot ulcer; L97.509 - Non-pressure chronic ulcer of other part of unspecified foot with unspecified severity; Z79.4 - termite control servicer (current) use of insulin (3) Morbid obesity Onset Date: 07/22/14 Current Visit: No Status: Chronic (4) Wound infection Onset Date: 11/12/14 Current Visit: No Status: Resolved - Plan Continue with plan of care as mentioned below: 1. Continue with IV antibiotic 2. Continue with local wound care 3. Wound care consultation/surgical consultation 4. Hep-Lock IV 5. Monitor labs 6. Strict blood sugar monitoring 7. Pain control 8. Arterial Doppler revealed peripheral arterial disease; cardiology consultation 9. GI and DVT prophylaxis
--- NOTE | 2021-09-06 11:47 | OP ---
Date of Procedure: 09/06/2021 Surgeon: Jermain Johns MD Preoperative Diagnosis: Right great toe diabetic infection with osteomyelitis. Postoperative Diagnosis: Right great toe diabetic infection with osteomyelitis. Procedure: Incision and drainage and debridement of the right great diabetic toe infection. Estimated Blood Loss: Minimal. Specimen: Culture and sensitivity, drainage and debridement tissue. Finding: As above. Anesthesia: General. Complications: None. Disposition: The patient tolerated the procedure in stable condition and taken to Recovery in good g eneral condition. Procedure In Detail: The patient was brought to the OR and placed in supine position. General anest hesia began. The patient was prepped and draped in the usual sterile fashion. Marcaine 0.5% used in a field block fashion. Then, scissors used to debride the blister that was on top of the foot down through the epidermis into the dermis and into the subcutaneous tissue, a very small area. There was some purulence and ulcer on the plantar aspect of the right great toes, which cultures were done. N ecrotic tissue was debrided. Wound was irrigated. Bleeding controlled with cautery and then collage nase dressing was applied. The patient was awakened and taken to Recovery in good general condition. /MODL Voice ID: [id number] Report ID: [id number]
[2021-09-06] MEDS: NA CHLORIDE 0.9% 1,000 ML IV SCH ×3 (11:53→21:53)
[2021-09-06] MEDS: ENOXAPARIN 40 MG/0.4 ML SQ SCH (15:54)
[2021-09-06] MEDS: HYDROCODONE/APAP 5/325 MG TAB PO PRN (23:04)
[2021-09-07] MEDS: HYDROCODONE/APAP 5/325 MG TAB PO PRN ×2 (04:46→14:02)
[2021-09-07] MEDS: MEDIHONEY 44 ML TOPICAL TUBE TOP SCH (08:03)
[2021-09-07] MEDS: INSULIN -REGULAR HUMAN 50 UNIT/0.5 ML ML SQ SCH ×4 (08:09→20:21)
[2021-09-07] MEDS: MORPHINE 2 MG/ML SYR IV PRN ×3 (08:10→20:31)
[2021-09-07] MEDS: ASPIRIN EC 81 MG TAB PO SCH (08:10)
[2021-09-07] MEDS: GABAPENTIN 300 MG CAP PO SCH ×2 (08:10→20:15)
[2021-09-07] MEDS: NA CHLORIDE 0.9% 1,000 ML IV SCH (08:11)
--- NOTE | 2021-09-07 09:05 | PN ---
Date of Progress Note: 09/07/2021 Subjective: The patient is awake, alert. No complaints. Vitals stable, afebrile. Dr. Levy saw him and he is going to do an angiogram as an outpatient. His dressing is clean, dry, and intact. Assessment: Status post debridement of right great toe. Recommendations: Continue IV antibiotics. Check cultures and adjust antibiotics accordingly. PICC line for 6 weeks. IV antibiotics for osteomyelitis. Follow up with Dr. Levy regarding vascular w orkup and [facility] 1[facility]2 weeks after discharge. /MODL Voice ID: [id number] Report ID: [id number]
[2021-09-07] MEDS: CEFTRIAXONE 2,000 MG in NA CHLORIDE 0.9% 100 ML IV SCH (09:27)
--- NOTE | 2021-09-07 10:42 | P.PN ---
Subjective Date of Service: 09/07/21 Primary Care Provider: Charles Chief Complaint: osteomyelitis Patient seen examined at bedside, doing well no acute complaints. Review of Systems 10-point ROS is otherwise unremarkable Physical Examination - Vital Signs Temperature: 97.6 F Blood Pressure: 125/56 Pulse: 80 Respirations: 18 Pulse Ox (%): 98 - Studies Laboratory Last Values WBC 8.90 K/uL (4.3-10.9) 09/03/21 19:50 RBC 4.97 M/uL (4.33-5.43) 09/03/21 19:50 Hgb 14.0 g/dL (13.6-17.9) 09/03/21 19:50 Hct 42.5 % (39.6-49.0) 09/03/21 19:50 MCV 85.5 fL (80-100) 09/03/21 19:50 MCH 28.2 pg (27.0-35.0) 09/03/21 19:50 MCHC 33.0 g/dL (32.0-36.0) 09/03/21 19:50 RDW 13.8 % (12.1-15.2) 09/03/21 19:50 Plt Count 237 K/uL (152-406) 09/03/21 19:50 MPV 9.0 fL (7.6-11.3) 09/03/21 19:50 Neutrophils % 63.6 % (41.7-73.7) 09/03/21 19:50 Lymphocytes % 26.5 % (15.3-44.8) 09/03/21 19:50 Monocytes % 8.3 % (3.3-12.3) 09/03/21 19:50 Eosinophils % 1.1 % (0-4.4) 09/03/21 19:50 Basophils % 0.5 % (0-1.3) 09/03/21 19:50 Absolute Neutrophils 5.7 K/uL (1.8-8.0) 09/03/21 19:50 Absolute Lymphocytes 2.4 K/uL (0.7-4.9) 09/03/21 19:50 Absolute Monocytes 0.7 K/uL (0.1-1.3) 09/03/21 19:50 Absolute Eosinophils 0.1 K/uL (0-0.5) 09/03/21 19:50 Absolute Basophils 0.0 K/uL (0-0.5) 09/03/21 19:50 Sodium 139 mmol/L (136-145) 09/03/21 19:50 Potassium 3.7 mmol/L (3.5-5.1) 09/03/21 19:50 Chloride 103 mmol/L (98-107) 09/03/21 19:50 Carbon Dioxide 27 mmol/L (21-32) 09/03/21 19:50 BUN 20 mg/dL (7-18) H 09/03/21 19:50 Creatinine 0.92 mg/dL (0.55-1.3) 09/03/21 19:50 Estimated GFR > 90 mL/min (=/>90) 09/03/21 19:50 Glucose 364 mg/dL (74-106) H 09/03/21 19:50 Lactic Acid 1.8 mmol/L (0.4-2.0) 09/03/21 20:45 Calcium 9.5 mg/dL (8.5-10.1) 09/03/21 19:50 Procalcitonin < 0.05 ng/mL (<0.050) 09/03/21 19:50 SARS-CoV-2 Rap RNA(RT-PCR) Negative (NEGATIVE) 09/03/21 22:10 Medications List Reviewed: Yes Assessment And Plan - Plan Physical exam: General: In no apparent distress, Oriented x3, Obese HEENT: Normocephalic Neck: Supple, 2+ carotid pulse no bruit, JVD not distended Respiratory: Clear to auscultation bilaterally, Normal air movement Cardiovascular: Normal pulses, Regular rate/rhythm Gastrointestinal: Normal bowel sounds, Soft and benign Integumentary: Diabetic ulcer (To right great hallux: Gina wound tissue erythematous and swollen. Wound has purulent drainage.) Conclusions/Impression: Antibiotics: Rocephin Start: 09/07 Cefepime Start: 09/04 Stop: 09/07 Doxycycline Start: 09/04 Stop: 09/07 Assessment/plan Right great hallux diabetic foot ulcer with osteomyelitis X-ray and MRI shows osteomyelitis of the proximal and distal phalanx of the right great toe. Patient underwent surgical debridement on 09/06, continue wound care per surgical team. Patient will need IV antibiotics for 6 weeks duration. Wound cultures growing beta-hemolytic strep and gram-negative rods, both sensitive to Rocephin. Continue Rocephin for total antibiotic duration of 6 weeks. Recommend PICC line placement. Continue to trend inflammatory markers, CRP and ESR pending. On discharge patient will need weekly labs including: CBC, BMP, CRP, ESR. Peripheral vascular disease Arterial Doppler showed monophasic waveforms, patient will likely need vascular surgery consultation. Protein caloric malnutrition Albumin of 2.5. Recommend supplemental Ensure protein drinks, adequate nutrition needed for proper wound healing. Diabetes Hemoglobin A1c of 11.1%. Strict glucose control needed for proper wound healing and infection control. If blood sugar levels are not controlled antibiotics will likely be unsuccessful. Anemia Continue to monitor H&H Medical management per primary team Plan of care discussed with Dr. andrews Thank you for consultation
[2021-09-07 10:44] LABS: Absolute Lymphocytes (CBC) 1.9 K/uL (0.7-4.9); Basophils % 0.7 % (0-1.3); Hematocrit 40.2 % (39.6-49.0); Lymphocytes % 38.3 % (15.3-44.8); MPV 8.1 fL (7.6-11.3); RBC Red Blood Cell Count 4.69 M/uL (4.33-5.43)
[2021-09-07] MEDS: ENOXAPARIN 40 MG/0.4 ML SQ SCH (16:21)
[2021-09-07] MEDS: HYDROCODONE/APAP 7.5/325 MG TAB PO PRN (20:15)
[2021-09-08] MEDS: HYDROCODONE/APAP 7.5/325 MG TAB PO PRN (06:47)
[2021-09-08] MEDS: INSULIN -REGULAR HUMAN 50 UNIT/0.5 ML ML SQ SCH ×4 (07:59→20:06)
[2021-09-08] MEDS: ASPIRIN EC 81 MG TAB PO SCH (08:00)
[2021-09-08] MEDS: CEFTRIAXONE 2,000 MG in NA CHLORIDE 0.9% 100 ML IV SCH (08:00)
[2021-09-08] MEDS: GABAPENTIN 300 MG CAP PO SCH ×2 (08:00→20:05)
[2021-09-08] MEDS: COLLAGENASE 30 GM OINTMENT TOP SCH (08:01)
--- NOTE | 2021-09-08 11:50 | P.PN ---
Subjective Date of Service: 09/08/21 Primary Care Provider: Charles Chief Complaint: osteomyelitis Patient seen examined at bedside, still waiting on PICC line. Review of Systems 10-point ROS is otherwise unremarkable Physical Examination - Vital Signs Temperature: 97.2 F Blood Pressure: 139/80 Pulse: 69 Respirations: 22 Pulse Ox (%): 97 - Studies Laboratory Last Values WBC 8.90 K/uL (4.3-10.9) 09/03/21 19:50 RBC 4.97 M/uL (4.33-5.43) 09/03/21 19:50 Hgb 14.0 g/dL (13.6-17.9) 09/03/21 19:50 Hct 42.5 % (39.6-49.0) 09/03/21 19:50 MCV 85.5 fL (80-100) 09/03/21 19:50 MCH 28.2 pg (27.0-35.0) 09/03/21 19:50 MCHC 33.0 g/dL (32.0-36.0) 09/03/21 19:50 RDW 13.8 % (12.1-15.2) 09/03/21 19:50 Plt Count 237 K/uL (152-406) 09/03/21 19:50 MPV 9.0 fL (7.6-11.3) 09/03/21 19:50 Neutrophils % 63.6 % (41.7-73.7) 09/03/21 19:50 Lymphocytes % 26.5 % (15.3-44.8) 09/03/21 19:50 Monocytes % 8.3 % (3.3-12.3) 09/03/21 19:50 Eosinophils % 1.1 % (0-4.4) 09/03/21 19:50 Basophils % 0.5 % (0-1.3) 09/03/21 19:50 Absolute Neutrophils 5.7 K/uL (1.8-8.0) 09/03/21 19:50 Absolute Lymphocytes 2.4 K/uL (0.7-4.9) 09/03/21 19:50 Absolute Monocytes 0.7 K/uL (0.1-1.3) 09/03/21 19:50 Absolute Eosinophils 0.1 K/uL (0-0.5) 09/03/21 19:50 Absolute Basophils 0.0 K/uL (0-0.5) 09/03/21 19:50 Sodium 139 mmol/L (136-145) 09/03/21 19:50 Potassium 3.7 mmol/L (3.5-5.1) 09/03/21 19:50 Chloride 103 mmol/L (98-107) 09/03/21 19:50 Carbon Dioxide 27 mmol/L (21-32) 09/03/21 19:50 BUN 20 mg/dL (7-18) H 09/03/21 19:50 Creatinine 0.92 mg/dL (0.55-1.3) 09/03/21 19:50 Estimated GFR > 90 mL/min (=/>90) 09/03/21 19:50 Glucose 364 mg/dL (74-106) H 09/03/21 19:50 Lactic Acid 1.8 mmol/L (0.4-2.0) 09/03/21 20:45 Calcium 9.5 mg/dL (8.5-10.1) 09/03/21 19:50 Procalcitonin < 0.05 ng/mL (<0.050) 09/03/21 19:50 SARS-CoV-2 Rap RNA(RT-PCR) Negative (NEGATIVE) 09/03/21 22:10 Medications List Reviewed: Yes Assessment And Plan - Plan Physical exam: General: In no apparent distress, Oriented x3, Obese HEENT: Normocephalic Neck: Supple, 2+ carotid pulse no bruit, JVD not distended Respiratory: Clear to auscultation bilaterally, Normal air movement Cardiovascular: Normal pulses, Regular rate/rhythm Gastrointestinal: Normal bowel sounds, Soft and benign Integumentary: Diabetic ulcer (To right great hallux: Gina wound tissue erythematous and swollen. Wound has purulent drainage.) Conclusions/Impression: Antibiotics: Rocephin Start: 09/07 Cefepime Start: 09/04 Stop: 09/07 Doxycycline Start: 09/04 Stop: 09/07 Assessment/plan Right great hallux diabetic foot ulcer with osteomyelitis X-ray and MRI shows osteomyelitis of the proximal and distal phalanx of the right great toe. Patient underwent surgical debridement on 09/06, continue wound care per surgical team. Patient will need IV antibiotics for 6 weeks duration. Wound cultures growing beta-hemolytic strep and gram-negative rods, both sensitive to Rocephin. Continue Rocephin for total antibiotic duration of 6 weeks. Recommend PICC line placement. Continue to trend inflammatory markers, CRP and ESR pending. On discharge patient will need weekly labs including: CBC, BMP, CRP, ESR. Peripheral vascular disease Arterial Doppler showed monophasic waveforms, patient will likely need vascular surgery consultation. Protein caloric malnutrition Albumin of 2.5. Recommend supplemental Ensure protein drinks, adequate nutrition needed for proper wound healing. Diabetes Hemoglobin A1c of 11.1%. Strict glucose control needed for proper wound healing and infection control. If blood sugar levels are not controlled antibiotics will likely be unsuccessful. Anemia Continue to monitor H&H Medical management per primary team Plan of care discussed with Dr. andrews Thank you for consultation
[2021-09-08] MEDS ORDERED: HYDROCORTISONE SUC 100 MG INJ IV ONE (12:38)
[2021-09-08] MEDS ORDERED: COLCHICINE 0.6 MG TAB PO ONE (12:38)
[2021-09-08] MEDS: MORPHINE 4 MG/ML SYR IV PRN ×2 (13:08→21:36)
--- NOTE | 2021-09-08 14:37 | RAD REPORT ---
EXAM DESCRIPTION: RAD - Chest Single View - 09/08/2021 2:19 pm CLINICAL HISTORY: PICC line placement COMPARISON: May 2020 FINDINGS: Portable chest was obtained following placement of a left upper extremity PICC line. The c atheter tip is in the mid SVC.
[2021-09-08] MEDS: ENOXAPARIN 40 MG/0.4 ML SQ SCH (16:48)
[2021-09-08] MEDS: HYDROCODONE/APAP 10/325 TAB PO PRN (20:05)
[2021-09-08] MEDS: COLCHICINE 0.6 MG TAB PO SCH (21:36)
[2021-09-09] MEDS: MORPHINE 4 MG/ML SYR IV PRN (04:16)
[2021-09-09 05:52] LABS: BUN Blood Urea Nitrogen 11 mg/dL (7-18); Bicarbonate 30 mmol/L (21-32); Glucose Level 168 mg/dL (74-106); Magnesium 1.7 mg/dL (1.8-2.4); Phosphorus 3.7 mg/dL (2.5-4.9); Potassium 3.7 mmol/L (3.5-5.1); Sodium Level 139 mmol/L (136-145)
[2021-09-09] MEDS: INSULIN -REGULAR HUMAN 50 UNIT/0.5 ML ML SQ SCH (07:30)
[2021-09-09] MEDS ORDERED: MAGNESIUM SULFATE 1 gm IVPB 1 GM/100 ML BAG IV ONE (08:00)
[2021-09-09] MEDS ORDERED: POTASSIUM 25 MEQ EFFERV TAB PO ONE (08:00)
[2021-09-09] MEDS: ASPIRIN EC 81 MG TAB PO SCH (08:46)
[2021-09-09] MEDS: GABAPENTIN 300 MG CAP PO SCH (08:47)
[2021-09-09] MEDS: COLCHICINE 0.6 MG TAB PO SCH (08:47)
[2021-09-09] MEDS: CEFTRIAXONE 2,000 MG in NA CHLORIDE 0.9% 100 ML IV SCH (08:48)
[2021-09-09] MEDS: HYDROCODONE/APAP 10/325 TAB PO PRN (08:58)
[2021-09-09 08:59] VITALS: BP 131/63; TEMP 97.6
[2021-09-09] MEDS: COLLAGENASE 30 GM OINTMENT TOP SCH (09:00)
[2021-09-09 10:38] VITALS: O2SAT 96
--- NOTE | 2021-09-11 11:45 | CON ---
Date of Consultation: 09/06/2021 Reason For Consultation: Peripheral arterial disease. History Of Present Illness: Mr. Quintana is a 40-year-old male. Has a history of diabetes, DVT, hyp ercholesterolemia, hypertension, neuropathy. He came in with osteomyelitis. Past Medical History: As stated above. Allergies: HE IS ALLERGIC TO VANCOMYCIN. Medications: At home include Lipitor, metformin, gabapentin, and insulin. Review of Systems: Negative. Social History: Negative. Family History: Negative. Physical Examination: Vital Signs: Stable, afebrile. HEENT: Negative. Neck: Supple with no bruit. Chest: Clear. Cardiac: Normal. Abdomen: Benign. Extremities: Revealed osteomyelitis. Diagnostic Studies: Arterial Doppler that was done showed monophasic forms seen throughout the right lower extremity consistent with significant inflow stenosis. His EKG and chest x-ray are unremarkab le. His creatinine is 0.6. Impression And Plan: Peripheral arterial disease. I think he needs to have his osteomyelitis treate d with IV antibiotics for 4-6 weeks after which I think we should schedule an abdominal angiogram lorena huerta. This certainly can be done as an outpatient. The case was discussed with Dr. Hadley and lorena ta the patient. We will continue to follow him on an as-needed basis. Continue antibiotics for now. Continue his regimen at home otherwise. ANASTASIA/SUSANA Voice ID: [phone] Report ID: [id number]
== END 2021-09-09 12:07 | disposition home or self-care (01) | DRG 264 ==
LOC: ER 19:24 → ERHOLD 22:17 → 2ND 09-04 12:48
PROVIDERS: ADMIT Hospitalist; ATTEND Hospitalist
PROC: 0JBQ0ZZ Excision of Right Foot Subcutaneous Tissue and Fascia, Open Approach (ICD-10-PCS; principal; 2021-09-06 10:15)
PROC: 02HV33Z Insertion of Infusion Device into Superior Vena Cava, Percutaneous Approach (ICD-10-PCS; 2021-09-08)
DX: E11.52 Type 2 diabetes mellitus with diabetic peripheral angiopathy with gangrene (principal); M86.171 Other acute osteomyelitis, right ankle and foot; L02.611 Cutaneous abscess of right foot; Z68.43 Body mass index [BMI] 50.0-59.9, adult; E46 Unspecified protein-calorie malnutrition; E11.69 Type 2 diabetes mellitus with other specified complication; E11.621 Type 2 diabetes mellitus with foot ulcer; E11.40 Type 2 diabetes mellitus with diabetic neuropathy, unspecified; L97.519 Non-pressure chronic ulcer of other part of right foot with unspecified severity; I10 Essential (primary) hypertension; D64.9 Anemia, unspecified; F17.210 Nicotine dependence, cigarettes, uncomplicated; E66.01 Morbid (severe) obesity due to excess calories; Z88.1 Allergy status to other antibiotic agents; Z79.84 Long term (current) use of oral hypoglycemic drugs; Z79.899 Other long term (current) drug therapy; Z79.4 Long term (current) use of insulin; Z86.718 Personal history of other venous thrombosis and embolism; Z20.822 Contact with and (suspected) exposure to COVID-19
CPT/HCPCS: 36415; 36569; 71045; 80048; 80053; 80061; 80307; 81003; 81015; 82947; 83036; 83605; 83735; 83880; 84100; 84145; 84439; 84443; 85025; 85652; 86140; 87040; 87070; 87075; 87077; 87186; 87205; 88304; 93925; 93971; 94760; 96372; 96374; 96375; 99285; J0692; J0696; J1650; J1720; J2270; J2405; J2543; J2704; J3010; J3475; J3480; J3590; J7030; U0003

== ENCOUNTER 2021-10-23 14:15 | Day surgery (SDC) | payer SELFPAY ==
[2021-10-23 14:57] VITALS: BP 113/68; TEMP 97.1; O2SAT 96; BMI 51.3
== END 2021-10-23 14:40 | disposition home or self-care (01) ==
LOC: DS 14:15 → EDSTATUS 14:42
PROVIDERS: ATTEND Family Medicine
PROC: 05PY33Z Removal of Infusion Device from Upper Vein, Percutaneous Approach (ICD-10-PCS; principal; 2021-10-23)
DX: L03.031 Cellulitis of right toe (principal); E11.65 Type 2 diabetes mellitus with hyperglycemia; E11.9 Type 2 diabetes mellitus without complications; Z79.4 Long term (current) use of insulin

== ENCOUNTER 2022-01-16 07:46 | Inpatient (IN) | payer SELFPAY ==
--- OUTSIDE RECORDS SUMMARY | 2022-01-16 07:50 | XMS REPORT | Continuity of Care Document ---
:1980 Author Organization [facility] t Address [address] [place] [address] Care Team Providers Name Role Phone Unavailable Unavailable Unavailable Payers Payer Name Policy Type Policy Number Effective Date Expiration Date S ource Problems This patient has no known problems. Allergies, Adverse Reactions, Alerts Allergy Allergy Status Severity Reaction(s) Onset Inactive Treating Comm ents Source Name Type Date Date Clinician No DA Active U 2018-0 [facility] Allergy 12-01 [facility] 00:00: [facility] vancomyc DA Active SV 2018-0 [facility] in 2-25 [place] 00:00: [address] Medications This patient has no known medications. Procedures This patient has no known procedures. Results Test Description Test Time Test Comments Results Result Comments Source GLUBED 2018-12-03 11:29:00 Test Item Value Reference Range Interpretation Comme nts GLUBED (test code = GLUBED) 202 mg/dL 70-110 H BASIC METABOLIC [id number] 05:36:00 Test Item Value Reference Range Interpretation [...] code = 8.2 mg/dL 7.8-10.9 N CA) [id number] 05:01:00 Test Item Value Reference Range Interpretation Comments GLUBED (test code = GLUBED) 185 mg/dL 70-110 H CBC W/AUTO [id number] 04:37:00 Test Item Value Reference Range Interpretation [...] code = 0.00 K/mm3 0.00-0.20 N NRBC#) [id number] 20:40:00 Test Item Value Reference Range Interpretation Comments GLUBED (test code = GLUBED) 256 mg/dL 70-110 H [id number] 17:24:00 Test Item Value Reference Range Interpretation Comments GLUBED (test code = GLUBED) 244 mg/dL 70-110 H [id number] 11:31:00 Test Item Value Reference Range Interpretation Comments GLUBED (test code = GLUBED) 272 mg/dL 70-110 H - DUP LE ART [id number] 09:44:00 [place]: [address]: [facility]: [facility] 1980 Age/S: 37/M [address] Unit #: [id number] Loc: [address] [place], [place] [address] Phys: Keny Duran MD Acct: [id number] Dis Date: Status: ADM IN PHONE #: [phone] Exam Date: 12/02/2018 033 FAX #: [phone] Reason: diabetic ulcers EXAMS: CPT CODE: [id number] DUP LE ART ARAVIND [id number]: Ulcers TECHNIQUE: Grayscale B-mode, color-flow, and spectral [...] RDMS Transcribed Date/Time/By: 12/02/2018 (0944) : By: [email or web address] Orig Print D/T:S: [...] 45-117 N TOTAL (test code = ALKP) [id number] 06:17:00 Test Item Value Reference Range Interpretation Comments MAGNESIUM (test code = MAG) 2.0 mg/dL 1.5-2.1 N COMPREHENSIVE METABOLIC [id number] 06:10:00 Test Item Value Reference Range Interpretation [...] TOTAL (test U/L 45-117 code = ALKP) [id number] 06:10:00 Test Item Value Reference Range Interpretation Comments MAGNESIUM (test code = MAG) mg/dL 1.5-2.1 - CT CHEST W/O [id number] 05:51:00 [place]: [address]: [facility]: [facility] 1980 Age/S: 37/M [address] [facility] Unit #: [id number] Loc: [address] [place], [place] [address] Phys: Keny Duran MD Acct: [id number] Dis Date: Status: ADM IN PHONE #: [phone] Exam Date: 12/01/2018 0534 FAX #: [phone] Reason: PNA CTDI: DLP: Automated exposure control, iterative reconstruction technique, and/oradjustment of mA and/or kV according to patient's size was utilized fooptimum radiation dose reduction. EXAMS: CPT CODE: [id number] CT CHEST W/O CONTRAST 72972 HISTORY: Pneumonia TECHNIQUE: Axial tomograms through the [...] abnormalities on this limited noncontrast examination. at 0518 Reported and signed by: LLOYD OGLESBY M.D. Facility ACR Accreditation for [place] - May 2012 CC: Keny Duran MD; Sunday Mendoza NP Technologist: CLAUDIA LUTZ RT(R)(CT) Transcribed Date/Time/By: 12/02/2018 (0551) : By: [email or web address] Orig Print D/T: S: 12/02/2018 (0572) PAGE 1 Signed ReportCBC W/AUTO [id number] 05:44:00 Test Item Value Reference Range Interpretation [...] code = 0.00 K/mm3 0.00-0.20 N NRBC#) [id number] 05:10:00 Test Item Value Reference Range Interpretation Comments GLUBED (test code = GLUBED) 201 mg/dL 70-110 H - DUP VEIN [id number] 04:37:00 [place]: [facility] St: [facility]: [facility] : 1980 Age/S: 37/M [address] Unit #: [id number] Loc: [address] [place], [place] [address] Phys: Keny Duran MD Acct: [id number] Dis Date: Status: ADM IN PHONE #: [phone] Exam Date: 12/02/2018237 FAX #: [phone] Reason: BLE SWELLING EXAMS: CPT CODE: [id number] DUP VEIN ARAVIND 83925 HISTORY: Bilateral swelling TECHNIQUE: Grayscale real-time B-mode [...] By: [email or web address] Orig Print D/T: S: 12/02/2018 (0440) PAGE 1 Signed Report- XR FOOT 2 VIEWS RT 2018-12-02 00:17:00 FAX: Keny Leonrad MD [place]: ER St: ADM FAX: Sunday Mendoza NP [phone] [facility] 1980 Age/S: 37/M [address] [facility] Unit #: [id number] Loc: [address] [address] Phys: Keny Duran MD Acct: [id number] Dis Date: Status: ADM IN PHONE #: [phone] Exam Date: 12/01/2018 2304 FAX #: [phone] Reason: GREAT TOE ULCER EXAMS: CPT CODE: [id number] XR FO[place] [address] [place] [address] LOCATION: V20 EXAM: - XR FOOT 2 [...] 1 Signed Report- XR FOOT 2 VIEWS [id number] 00:17:00 FAX: Keny Leonard MD [place]: ER St: ADM FAX: Sunday Mendoza NP [phone] Name[facility] : 1980 Age/S: 37/M [address] [facility] Unit #: [id number] Loc: [address] [place], [place] [address] Phys: Keny Duran MD Acct: [id number] Dis Date: Status: ADM IN PHONE #: [phone] Exam Date: 12/01/2018 2304 FAX #: [phone] Reason: GREAT TOE ULCER EXAMS: CPT CODE: [id number] XR FO[place] [address] [place] [address] LOCATION: V20 EXAM: - XR FOOT 2 [...] H code = GLYHGB) MEAN BLOOD GLUCOSE [id number] 22:46:00 Test Item Value Reference Range Interpretation Comments MEAN BLOOD GLUCOSE CALCULATION (test 228.8 code = MBGCALC) URINALYSIS W/O [id number] 21:41:00 Test Item Value Reference Range Interpretation [...] code = LEUU) SOURCE: URINESPECIMEN DESCRIPTION: CMCUA [id number] 21:41:00 Test Item Value Reference Range Interpretation Comments UA WBC (test code = WBCU) 2-5 0-5 UA RBC (test code = RBCU) 0-2 0-5 UA SQUAMOUS CELLS (test code = 5-10 #/lpf NONE SEEN SQU) SOURCE: URINESPECIMEN DESCRIPTION: CMCURINALYSIS W/O [id number] 21:04:00 Test Item Value Reference Range Interpretation [...] code = LEUU) SOURCE: URINESPECIMEN DESCRIPTION: CMCUA [id number] 21:04:00 Test Item Value Reference Range Interpretation Comments UA WBC (test code = WBCU) 0-5 UA RBC (test code = RBCU) 0-5 SOURCE: URINESPECIMEN DESCRIPTION: CMCURINALYSIS W/O [id number] 21:04:00 Test Item Value Reference Range Interpretation [...] code = LEUU) SOURCE: URINESPECIMEN DESCRIPTION: CMCUA [id number] 21:04:00 Test Item Value Reference Range Interpretation Comments UA WBC (test code = WBCU) 0-5 UA RBC (test code = RBCU) 0-5 SOURCE: URINESPECIMEN DESCRIPTION: [facility] [id number] 20:50:00 Test Item Value Reference Range Interpretation Comments POC LACTIC ACID (test code = 1.61 MMOL/L 0.40-2.00 N POCLAC) - XR CHEST 1 [id number] 20:42:00 FAX: Xavier Maguire [phone] [place]: ER St: REG Name: [facility] : 1980 Age/S: 37/M [address] Unit #: [id number] Loc: .[place], [place] [address] Phys: Xavier Maguire MD Acct: [id number] Dis Date: Status: REG ER PHONE #: [phone] Exam Date: 12/01/20182039 FAX #: [phone] Reason: code sepsis EXAMS: CPT CODE: [id number] XR CHEST 1 V 70433 LOCATION: V20 EXAM: - XR CHEST 1 [...] dose reduction. PAGE 1 Signed ReportHEPATIC FUNCTION [id number] 19:50:00 Test Item Value Reference Range Interpretation [...] 45-117 N TOTAL (test code = ALKP) [id number] 19:50:00 Test Item Value Reference Range Interpretation Comments LIPASE (test code = 120 U/L 73-393 N Reportin g units: LIP) International U nits/L NT PRO-BRAIN NATRIURETIC [id number] 19:50:00 Test Item Value Reference Range Interpretation Comments NT PRO-BRAIN NATRIURETIC PEPTI (test 18 pg/mL 0-125 N code = PROBNP) [id number] 19:50:00 Test Item Value Reference Range Interpretation [...] 0.05 ng/mL 0.00-0.05 N PROCAL) CHEMISTRY 8 [id number] 19:36:00 Test Item Value Reference Range Interpretation [...] 0.7 MG/DL 0.6-1.0 N CREATBED) HEPATIC FUNCTION [id number] 19:36:00 Test Item Value Reference Range Interpretation [...] 45-117 N TOTAL (test code = ALKP) [id number] 19:36:00 Test Item Value Reference Range Interpretation Comments LIPASE (test code = 120 U/L 73-393 N Reportin g units: LIP) International U nits/L NT PRO-BRAIN NATRIURETIC [id number] 19:36:00 Test Item Value Reference Range Interpretation Comments NT PRO-BRAIN NATRIURETIC PEPTI (test 18 pg/mL 0-125 N code = PROBNP) [id number] 19:36:00 Test Item Value Reference Range Interpretation [...] (test code = ng/mL 0.00-0.05 PROCAL) PROTHROMBIN [id number] 19:25:00 Test Item Value Reference Interpretation Comments [...] THE PATIENT ON ANY ANTICOAGULANTS? NTHROMBOPLASTIN TIME [id number] 19:25:00 Test Item Value Reference Range Interpretation Comments THROMBOPLASTIN TIME PARTIAL 27.0 SECONDS 23.0-32.0 N (test code = PTT) IS THE PATIENT ON ANY ANTICOAGULANTS? NPOC LACTIC [id number] 19:11:00 Test Item Value Reference Range Interpretation Comments POC LACTIC ACID 2.68 MMOL/L 0.40-2.00 H RESULTS CALL ED TO [] (test code = POCLAC) [place] [address]/01/18.NMI-JESUS MEZA L VALUE READ BA CK BY NURSE AND VERIF IED BY TECH? []REFEREN CE RANGES FOR: 1) ARTERIAL SAMPLE (0.5-1.6MMOL/L) 2) SPINAL FLUID (0.6-2.2MMOL/L) CBC W/AUTO [id number] 19:08:00 Test Item Value Reference Range Interpretation [...]
--- NOTE | 2022-01-16 08:22 | RAD REPORT ---
EXAM DESCRIPTION: CT - Head Brain Wo Cont - 01/16/2022 8:15 am CLINICAL HISTORY: Dizziness;Headache COMPARISON: Head Brain Wo Cont dated 05/25/2020 TECHNIQUE: All CT scans are performed using dose optimization technique as appropriate and may inclu de automated exposure control or mA/KV adjustment according to patient size. FINDINGS: No intracranial hemorrhage, hydrocephalus or extra-axial fluid collection.No areas of brai n edema or evidence of midline shift. The paranasal sinuses and mastoids are clear. The calvarium is intact. IMPRESSION: No acute intracranial abnormality.
--- NOTE | 2022-01-16 08:31 | RAD REPORT ---
EXAM DESCRIPTION: RAD - Chest Single View - 01/16/2022 8:26 am CLINICAL HISTORY: COUGH COMPARISON: Chest Single View dated 10/12/2021; Chest Single View dated 10/09/2021; Chest Single View da bonilla 09/08/2021; Chest Single View dated 05/25/2020 FINDINGS: Lines: None. Lungs: No evidence of edema or pneumonia. Pleural: No significant pleural effusions or pneumothorax. Cardiac: The heart size is within normal limits. Bones: No acute fractures. Other: IMPRESSION: No acute cardiopulmonary disease.
[2022-01-16] MEDS ORDERED: MORPHINE 4 MG/ML SYR ONE ×2 (08:34→13:37)
[2022-01-16] MEDS ORDERED: CEFTRIAXONE 1000 MG/VIAL ONE (08:35)
[2022-01-16] MEDS ORDERED: NA CHLORIDE 0.9% 1,000 ML ONE ×2 (08:35→20:30)
[2022-01-16] MEDS ORDERED: ONDANSETRON 4 MG/2 ML VIAL ONE (08:35)
[2022-01-16 08:55] LABS: Absolute Lymphocytes (CBC) 1.3 K/uL (0.7-4.9); Hematocrit 44.9 % (39.6-49.0); Lymphocytes % 11.1 % (15.3-44.8); RBC Red Blood Cell Count 5.18 M/uL (4.33-5.43)
[2022-01-16 09:06] LABS: Protime INR 1.01
[2022-01-16 09:15] LABS: ALT/SGPT 42 U/L (12-78); AST/SGOT 13 U/L (15-37); Albumin 3.7 g/dL (3.4-5.0); Alkaline Phosphatase 78 U/L (45-117); BUN Blood Urea Nitrogen 15 mg/dL (7-18); Bicarbonate 28 mmol/L (21-32); Bilirubin Direct 0.2 mg/dL (0-0.2); Bilirubin Total 0.6 mg/dL (0.2-1.0); Glucose Level 237 mg/dL (74-106); Magnesium 1.5 mg/dL (1.8-2.4); NT PRO-BNP 61 pg/mL (<125); Potassium 4.2 mmol/L (3.5-5.1); Protein, Total 8.4 g/dL (6.4-8.2); Sodium Level 132 mmol/L (136-145); Troponin High Sensitivity 7.6 pg/mL (<58.9)
[2022-01-16] MEDS ORDERED: ACETAMINOPHEN 500 MG TAB ONE (09:26)
[2022-01-16 10:04] LABS: SARS-COV-2 RT PCR NEGATIVE (NEGATIVE)
[2022-01-16 10:46] LABS: Urine Blood Negative (Negative); Urine Glucose 2+ (Negative); Urine Protein Negative (Negative); Urine pH 6.5 (5.0-7.0)
[2022-01-16] MEDS ORDERED: Magnesium Sulfate 2gm IVPB 2 G/50 ML BAG IV ONE (11:02)
--- NOTE | 2022-01-16 11:51 | RAD REPORT ---
EXAM DESCRIPTION: CT - Head angio - 01/16/2022 11:41 am CLINICAL HISTORY: r/o stroke. Worst headache ever COMPARISON: Head Brain Wo Cont dated 01/16/2022; Head Brain Wo Cont dated 05/25/2020 TECHNIQUE: CT angiography of the head was performed with MIPs. All CT scans are performed using dose optimization technique as appropriate and may include automated exposure control or mA/KV adjustment according to patient size. FINDINGS: Anterior circulation: No aneurysm or large vessel occlusion. No hemodynamically significant stenosis. No arteriovenous malf ormation identified. Posterior circulation: No aneurysm or large vessel occlusion. No hemodynamically significant stenosis. No arteriovenous malf ormation identified. IMPRESSION: No significant flow abnormality is detected.
--- NOTE | 2022-01-16 12:07 | ER ---
Nurse's Notes [facility] Name: Addy Quintana Jr Age: 41 yrs Sex: Male : 1980 Arrival Date: 01/16/2022 Time: 07:47 Bed 14 Private MD: Lulu Soto C Diagnosis: Other malaise and fatigue;Obesity, unspecified;Hypomagnesemia;Type 1 diabetes mellitus with hyperglycemia Presentation: 01/16 07:52 Chief complaint: Patient states: he woke up with a terrible headache, body aches and ap3 feels like he is shaking. Patient states he felt "a little off" yesterday, and took a nap after work, which he never does. patient denies having felt like this before. Coronavirus screen: Client presents with at least one sign or symptom that may indicate coronavirus-19. Ebola Screen: No symptoms or risks identified at this time. Initial Sepsis Screen: Does the patient meet any 2 criteria? No. Patient's initial sepsis screen is negative. Does the patient have a suspected source of infection? No. Patient's initial sepsis screen is negative. Risk Assessment: Do you want to hurt yourself or someone else? Patient reports no desire to harm self or others. Onset of symptoms was January 16, 2022. 07:52 Method Of Arrival: Ambulatory ap3 07:52 Acuity: FLORENCIO 3 ap3 Triage Assessment: 07:56 Headache History: The patient has had previous headaches and this one is similar to ap3 previous episodes. General: Appears uncomfortable, Behavior is restless. Pain: Complains of pain in head and generalized body aches Pain currently is 8 out of 10 on a pain scale. Pain began gradually, Also complains of nausea. Neuro: Level of Consciousness is awake, alert, obeys commands, Oriented to person, place, time, situation, Speech is normal. Cardiovascular: Patient's skin is warm and dry. Respiratory: Airway is patent Respiratory effort is even, unlabored. GI: Reports nausea, vomiting. Historical: - Allergies: 07:54 VANCOMYCIN AND DERIVATIVES; ap3 - Home Meds: 07:54 gabapentin 600 mg Oral tab 3 times per day [Active]; Tresiba FlexTouch U-100 100 ap3 unit/mL (3 mL) subcutaneous inpn [Active]; metformin 1,000 mg Oral tab 1 tab 2 times per day [Active]; - PMHx: 07:54 Diabetes - IDDM; DVT; Hypercholesterolemia; Hypertension; neuropathy; Blounts; ap3 - PSHx: 07:54 Dion knee sx; ap3 - Immunization history:: Client reports receiving the 2nd dose of the Covid vaccine, Pneumococcal vaccine is not up to date. - Social history:: Smoking status: Patient denies any tobacco usage or history of. Patient uses alcohol, occasionally. - Family history:: not pertinent. Screenin:57 Abuse screen: Denies threats or abuse. Nutritional screening: No deficits noted. ap3 Tuberculosis screening: No symptoms or risk factors identified. 01/17 09:37 Fall Risk None identified. jg9 Assessment: 01/16 08:00 General: SEE TRIAGE NOTE. bp 10:00 Reassessment: No changes from previously documented assessment. Patient and/or family bp updated on plan of care and expected duration. Pain level reassessed. 11:03 Reassessment: No changes from previously documented assessment. Patient and/or family bp updated on plan of care and expected duration. Pain level reassessed. 13:00 Reassessment: No changes from previously documented assessment. Patient and/or family bp updated on plan of care and expected duration. Pain level reassessed. ADMIT INITIATED. 15:00 Reassessment: No changes from previously documented assessment. Patient and/or family bp updated on plan of care and expected duration. Pain level reassessed. Vital Signs: 07:52 BP 131 / 82; Pulse 98; Resp 19; Temp 99.1; Pulse Ox 97% on R/A; Weight 154.67 kg; ap3 Height 5 ft. 7 in. (170.18 cm); Pain 8/10; 10:00 BP 108 / 65; Pulse 93; Resp 21; Pulse Ox 95% ; bp 11:02 BP 104 / 60; Pulse 85; Resp 17; Pulse Ox 95% ; bp 12:05 BP 111 / 69; Pulse 79; Resp 18; Pulse Ox 98% ; bp 13:00 BP 104 / 73; Pulse 84; Resp 20; Pulse Ox 96% ; bp 14:00 BP 139 / 94; Pulse 90; Resp 18; Pulse Ox 99% ; bp 15:00 BP 125 / 83; Pulse 91; Resp 18; Pulse Ox 94% ; bp 07:52 Body Mass Index 53.41 (154.67 kg, 170.18 cm) ap3 [place] Coma Score: 08:59 Eye Response: spontaneous(4). Verbal Response: oriented(5). Motor Response: obeys emre commands(6). Total: 15. ED Course: 07:47 Patient arrived in ED. am2 07:47 Lulu Soto FNP is Private Physician. am2 07:54 Triage completed. ap3 07:57 Arm band placed on left wrist. ap3 07:58 Perez Singer MD is Attending Physician. emre 08:00 Patient has correct armband on for positive identification. Bed in low position. Call bp light in reach. Side rails up X2. 08:01 Adolfo Mathis RN is Primary Nurse. bp 08:16 CT Head Brain wo Cont In Process Unspecified. EDMS 08:27 XRAY Chest (1 view) In Process Unspecified. EDMS 08:45 Inserted saline lock: 20 gauge in right antecubital area, using aseptic technique. bp Blood collected. 08:50 EKG done, by ED staff, reviewed by Perez Singer MD. zm 09:44 Strep Sent. zm 11:42 Head angio In Process Unspecified. EDMS 12:06 Tay Flower MD is Referral Physician. emre 12:54 Stone Mcbride MD is Hospitalizing Provider. emre 23:48 Primary Nurse role handed off by Adolfo Mathis RN tw5 23:48 Lennie Araujo RN is Primary Nurse. tw5 01/17 07:25 Primary Nurse role handed off by Lennie Araujo RN bd 09:36 No provider procedures requiring assistance completed. jg9 09:37 Patient admitted, IV remains in place. jg9 Administered Medications: 01/16 08:45 Drug: NS 0.9% 1000 ml Route: IV; Rate: 1 bolus; Site: right antecubital; bp 01/17 09:38 Follow up: IV Status: Completed infusion; IV Intake: 1000ml jg9 01/16 08:45 Drug: Rocephin (cefTRIAXone) 1 grams Route: IV; Rate: per protocol; Site: right bp antecubital; 15:39 Follow up: IV Status: Completed infusion; IV Intake: 50ml bp 08:45 Drug: morphine 2 mg Route: IVP; Site: right antecubital; bp 08:45 Drug: Zofran (Ondansetron) 4 mg Route: IVP; Site: right antecubital; bp 09:30 Follow up: Response: No adverse reaction bp 08:50 Drug: morphine 2 mg Route: IVP; Site: right antecubital; bp 09:30 Follow up: Response: No adverse reaction; Pain is decreased bp 09:15 Drug: Tylenol 1000 mg Route: PO; bp 09:30 Follow up: Response: No adverse reaction bp 10:30 Drug: Magnesium Sulfate 2 grams Route: IVPB; Infused Over: 1 hrs; Site: right forearm; bp 13:57 Follow up: IV Status: Completed infusion; IV Intake: 50ml bp 13:30 Drug: morphine 4 mg Route: IVP; Site: right antecubital; bp 15:39 Follow up: Response: No adverse reaction; Pain is decreased bp Intake: 13:57 IV: 50ml; Total: 50ml. bp 15:39 IV: 50ml; Total: 100ml. bp 01/17 09:38 IV: 1000ml; Total: 1100ml. jg9 Outcome: 01/16 12:06 Discharge ordered by . [facility] 12:57 Decision to Hospitalize by Provider. [facility] 01/17 09:37 Condition: stable jg9 09:37 Admitted to ER Hold. Please see [facility] for further documentation. jg9 21:16 Patient left the ED. ab2 Signatures: Dispatcher [employer] EDMS Earline Johnson Corey, MD MD cha Moreno, Amanda am2 Adolfo Mathis RN RN bp Karen Desai RN RN ap3 Clementina Gaxiola 5 Cherrie Calero RN RN jg9 Gregorio Antunez ab2 Sanjana Wesley Corrections: (The following items were deleted from the chart) 01/16 07:56 07:54 PMHx: Diabetes - NIDDM; ap3 ap3
--- NOTE | 2022-01-16 12:07 | EDPHYS ---
Physician Documentation [facility] Name: Addy Quintana Jr Age: 41 yrs Sex: Male : 1980 Arrival Date: 01/16/2022 Time: 07:47 Bed 14 Private MD: Lulu Soto C ED Physician Perez Singer HPI: 01/16 08:53 This 41 yrs old Male presents to ER via Ambulatory with complaints of emre Headache, Worst Ever, Body aches, shakes. 08:53 The patient complains of pain to the top of head, forehead, left frontal area, left emre side of the back of head, left occipital area, left base of the skull, right frontal area, right side of the back of head, right occipital area and right base of the skull. The patient describes the headache as aching. Onset: The symptoms/episode began/occurred this morning, today. Associated signs and symptoms: Pertinent positives: malaise. Severity of symptoms: At its worst the pain was moderate, in the emergency department the pain is unchanged. Headache History: The patient has had previous headaches and this one is similar to previous episodes. The symptoms are alleviated by remaining still, the symptoms are aggravated by lights, movement. The patient has experienced similar episodes in the past, several times. Historical: - Allergies: 07:54 VANCOMYCIN AND DERIVATIVES; ap3 - Home Meds: 07:54 gabapentin 600 mg Oral tab 3 times per day [Active]; Tresiba FlexTouch U-100 100 ap3 unit/mL (3 mL) subcutaneous inpn [Active]; metformin 1,000 mg Oral tab 1 tab 2 times per day [Active]; - PMHx: 07:54 Diabetes - IDDM; DVT; Hypercholesterolemia; Hypertension; neuropathy; Blounts; ap3 - PSHx: 07:54 Dion knee sx; ap3 - Immunization history:: Client reports receiving the 2nd dose of the Covid vaccine, Pneumococcal vaccine is not up to date. - Social history:: Smoking status: Patient denies any tobacco usage or history of. Patient uses alcohol, occasionally. - Family history:: not pertinent. ROS: 08:53 Constitutional: Negative for fever, chills, and weight loss, Eyes: Negative for injury, emre pain, redness, and discharge, ENT: Negative for injury, pain, and discharge, Neck: Negative for injury, pain, and swelling, Cardiovascular: Negative for chest pain, palpitations, and edema, Respiratory: Negative for shortness of breath, cough, wheezing, and pleuritic chest pain, Abdomen/GI: Negative for abdominal pain, nausea, vomiting, diarrhea, and constipation, Back: Negative for injury and pain, : Negative for injury, bleeding, discharge, and swelling, MS/Extremity: Negative for injury and deformity, Skin: Negative for injury, rash, and discoloration, Psych: Negative for depression, anxiety, suicide ideation, homicidal ideation, and hallucinations, Allergy/Immunology: Negative for hives, rash, and allergies, Endocrine: Negative for neck swelling, polydipsia, polyuria, polyphagia, and marked weight changes, Hematologic/Lymphatic: Negative for swollen nodes, abnormal bleeding, and unusual bruising. 08:53 Neuro: Positive for headache. Exam: 08:53 Constitutional: This is a well developed, well nourished patient who is awake, alert, emre and in no acute distress. Head/Face: Normocephalic, atraumatic. Eyes: Pupils equal round and reactive to light, extra-ocular motions intact. Lids and lashes normal. Conjunctiva and sclera are non-icteric and not injected. Cornea within normal limits. Periorbital areas with no swelling, redness, or edema. Neck: Trachea midline, no thyromegaly or masses palpated, and no cervical lymphadenopathy. Supple, full range of motion without nuchal rigidity, or vertebral point tenderness. No Meningismus. Chest/axilla: Normal chest wall appearance and motion. Nontender with no deformity. No lesions are appreciated. Cardiovascular: Regular rate and rhythm with a normal S1 and S2. No gallops, murmurs, or rubs. Normal PMI, no JVD. No pulse deficits. Respiratory: Lungs have equal breath sounds bilaterally, clear to auscultation and percussion. No rales, rhonchi or wheezes noted. No increased work of breathing, no retractions or nasal flaring. Abdomen/GI: Soft, non-tender, with normal bowel sounds. No distension or tympany. No guarding or rebound. No evidence of tenderness throughout. Back: No spinal tenderness. No costovertebral tenderness. Full range of motion. Male : Normal genitalia with no discharge or lesions. Skin: Warm, dry with normal turgor. Normal color with no rashes, no lesions, and no evidence of cellulitis. MS/ Extremity: Pulses equal, no cyanosis. Neurovascular intact. Full, normal range of motion. Neuro: Awake and alert, GCS 15, oriented to person, place, time, and situation. Cranial nerves II-XII grossly intact. Motor strength 5/5 in all extremities. Sensory grossly intact. Cerebellar exam normal. Normal gait. Psych: Awake, alert, with orientation to person, place and time. Behavior, mood, and affect are within normal limits. 08:53 ENT: Posterior pharynx: Tonsils: with erythema. 09:01 ECG was reviewed by the Attending Physician. emre 12:07 Neck: External neck: is normal, no acute changes, C-spine: appears grossly normal, no emre acute changes, Trachea: is midline with no obvious abnormalities, no acute changes, ROM/movement: is normal, no acute changes, Lymph nodes: no appreciated lymphadenopathy. Vital Signs: 07:52 BP 131 / 82; Pulse 98; Resp 19; Temp 99.1; Pulse Ox 97% on R/A; Weight 154.67 kg; ap3 Height 5 ft. 7 in. (170.18 cm); Pain 8/10; 10:00 BP 108 / 65; Pulse 93; Resp 21; Pulse Ox 95% ; bp 11:02 BP 104 / 60; Pulse 85; Resp 17; Pulse Ox 95% ; bp 12:05 BP 111 / 69; Pulse 79; Resp 18; Pulse Ox 98% ; bp 13:00 BP 104 / 73; Pulse 84; Resp 20; Pulse Ox 96% ; bp 14:00 BP 139 / 94; Pulse 90; Resp 18; Pulse Ox 99% ; bp 15:00 BP 125 / 83; Pulse 91; Resp 18; Pulse Ox 94% ; bp 07:52 Body Mass Index 53.41 (154.67 kg, 170.18 cm) ap3 [place] Coma Score: 08:59 Eye Response: spontaneous(4). Verbal Response: oriented(5). Motor Response: obeys emre commands(6). Total: 15. MDM: 07:58 Patient medically screened. emre 08:59 Differential diagnosis: hypertensive headache, migraine, sinusitis, tension headache. emre Data reviewed: vital signs, nurses notes, lab test result(s), EKG, radiologic studies, plain films. Data interpreted: phototypesetting equipment monitor: rate is 98 beats/min, rhythm is regular, Pulse oximetry: on room air. Test interpretation: by ED physician or midlevel provider: ECG, plain radiologic studies. Counseling: I had a detailed discussion with the patient and/or guardian regarding: the historical points, exam findings, and any diagnostic results supporting the discharge/admit diagnosis, lab results, radiology results. 01/16 08:01 Order name: Basic Metabolic Panel; Complete Time: 10:05 [facility] 01/16 08:01 Order name: CBC with Diff; Complete Time: 10:05 [facility] 01/16 08:01 Order name: LFT's; Complete Time: 10:05 [facility] 01/16 08:01 Order name: Magnesium; Complete Time: 10:05 [facility] 01/16 08:01 Order name: NT PRO-BNP; Complete Time: 10:05 [facility] 01/16 08:01 Order name: PT-INR; Complete Time: 10:05 [facility] 01/16 08:01 Order name: Troponin HS; Complete Time: 10:05 [facility] 01/16 08:01 Order name: COVID-19/FLU A+B/RSV (Document "Date of Onset" if Symptomatic); Complete [facility] Time: 11:01/16 08:02 Order name: Lactate; Complete Time: 10:05 [facility] 01/16 08:02 Order name: Procalcitonin; Complete Time: 10:05 [facility] 01/16 08:53 Order name: Strep; Complete Time: 12:03 [facility] 01/16 10:46 Order name: Urine Dipstick-Ancillary; Complete Time: 11:03 [facility] 01/16 11:43 Order name: Throat Culture [facility] 01/16 12:04 Order name: Blood Culture Adult (2) [facility] 01/16 16:59 Order name: Basic Metabolic Panel [facility] 01/16 16:59 Order name: Basic Metabolic Panel [facility] 01/16 16:59 Order name: CBC with Automated Diff [facility] 01/16 16:59 Order name: CBC with Automated Diff [facility] 01/16 16:59 Order name: CKMB Creatine Kinase MB [facility]UT 01/16 16:59 Order name: CKMB Creatine Kinase MB EDUT 01/16 16:59 Order name: CKMB Creatine Kinase MB EDUT 01/16 16:59 Order name: CKMB Creatine Kinase MB EDUT 01/16 16:59 Order name: Creatine Phosphokinase EDMS 01/16 16:59 Order name: Creatine Phosphokinase EDUT 01/16 16:59 Order name: Creatine Phosphokinase [facility]UT 01/16 16:59 Order name: Creatine Phosphokinase EDUT 01/16 16:59 Order name: Lipid Profile EDMS 01/16 16:59 Order name: Lipid Profile [facility] 01/16 16:59 Order name: Magnesium [facility] 01/16 16:59 Order name: Magnesium [facility] 01/16 08:01 Order name: XRAY Chest (1 view); Complete Time: 10:05 [facility] 01/16 08:01 Order name: EKG; Complete Time: 08:02 [facility] 01/16 08:01 Order name: Cardiac monitoring; Complete Time: 08:55 [facility] 01/16 08:01 Order name: EKG - Nurse/Tech; Complete Time: 08:51 [facility] 01/16 08:01 Order name: IV Saline Lock; Complete Time: 08:55 [facility] 01/16 08:01 Order name: Labs collected and sent; Complete Time: 08:55 [facility] 01/16 08:01 Order name: O2 Per Protocol; Complete Time: 08:55 [facility] 01/16 08:01 Order name: O2 Sat Monitoring; Complete Time: 08:55 [facility] 01/16 08:01 Order name: Urine Dipstick-Ancillary (obtain specimen); Complete Time: 11:02 [facility] 01/16 08:01 Order name: CT Head Brain wo Cont; Complete Time: 10:05 [facility] 01/16 11:21 Order name: Head angio; Complete Time: 12:03 [facility] 01/16 16:59 Order name: 60g Consistent Carbohydrate (ADA 1800/2000) [facility] 01/16 16:59 Order name: Phosphorus [facility] 01/16 16:59 Order name: Phosphorus [facility] 01/16 20:30 Order name: Glucose, Ancillary Testing; Complete Time: 20:47 [facility] 01/17 08:22 Order name: Glucose, Ancillary Testing [facility] 01/17 12:09 Order name: Glucose, Ancillary Testing EDMS 01/17 17:49 Order name: Glucose, Ancillary Testing EDMS EC:01 Rate is 96 beats/min. Rhythm is regular. QRS Lillian is Normal. PA interval is normal. QRS emre interval is normal. QT interval is normal. No Q waves. T waves are Normal. No ST changes noted. Clinical impression: NSR w/ Non-specific ST/T Changes and No evidence of ischemia. Interpreted by me. Reviewed by me. Administered Medications: 08:45 Drug: NS 0.9% 1000 ml Route: IV; Rate: 1 bolus; Site: right antecubital; bp 01/17 09:38 Follow up: IV Status: Completed infusion; IV Intake: 1000ml jg9 01/16 08:45 Drug: Rocephin (cefTRIAXone) 1 grams Route: IV; Rate: per protocol; Site: right bp antecubital; 15:39 Follow up: IV Status: Completed infusion; IV Intake: 50ml bp 08:45 Drug: morphine 2 mg Route: IVP; Site: right antecubital; bp 08:45 Drug: Zofran (Ondansetron) 4 mg Route: IVP; Site: right antecubital; bp 09:30 Follow up: Response: No adverse reaction bp 08:50 Drug: morphine 2 mg Route: IVP; Site: right antecubital; bp 09:30 Follow up: Response: No adverse reaction; Pain is decreased bp 09:15 Drug: Tylenol 1000 mg Route: PO; bp 09:30 Follow up: Response: No adverse reaction bp 10:30 Drug: Magnesium Sulfate 2 grams Route: IVPB; Infused Over: 1 hrs; Site: right forearm; bp 13:57 Follow up: IV Status: Completed infusion; IV Intake: 50ml bp 13:30 Drug: morphine 4 mg Route: IVP; Site: right antecubital; bp 15:39 Follow up: Response: No adverse reaction; Pain is decreased bp Disposition Summary: 01/16/22 12:57 Hospitalization Ordered Hospitalization Status: Observation emre Provider: Stone Mcbride emre Condition: Fair(01/16/22 12:57) emre Problem: new(01/16/22 12:57) emre Symptoms: have improved(01/16/22 12:57) emre Bed/Room Type: Standard emre Location: Telemetry/MedSurg (observation)(01/17/22 20:04) ja1 Room Assignment: 213(01/17/22 20:04) ja1 Diagnosis - Other malaise and fatigue emre - Obesity, unspecified(01/16/22 12:57) emre - Hypomagnesemia(01/16/22 12:57) emre - Type 1 diabetes mellitus with hyperglycemia emre Forms: - Medication Reconciliation Form emre - SBAR form emre Signatures: Dispatcher [employer] EDTiffanie Montiel RN RN Perez Bernard MD MD cha Attema, Lee, PLISSE MACHINE OPERATOR HELPER-C PLISSE MACHINE OPERATOR HELPER-Cla1 Jacob Goodman RN RN ja1 Adolfo Mathis RN RN Karen Hampton RN RN ap3 Cherrie Calero RN jg9 Corrections: (The following items were deleted from the chart) 07:56 07:54 PMHx: Diabetes - NIDDM; ap3 ap3 12:54 12:06 Home emre emre 12:54 12:06 new emre emre 12:54 12:06 have improved emer emre 12:54 12:06 Stable emre emre 12:54 12:06 Headache emre emre 12:54 12:06 Type 2 diabetes mellitus with hyperglycemia emre emre 12:54 12:06 Obesity, unspecified emre emre 12:54 12:06 Hypomagnesemia emre [facility] 19:20 12:57 Telemetry/MedSurg (observation) [facility] 19:20 12:57 [facility] 01/17 20:04 04 19:20 [facility] ER HOLD ja1 01/17 20:04 01/16 19:20 ERHOLD- ja1
[2022-01-16] MEDS ORDERED: PROMETHAZINE 25 MG TABLET PO PRN (16:49)
[2022-01-16] MEDS: NA CHLORIDE 0.9% 1,000 ML IV SCH (17:00)
--- NOTE | 2022-01-16 17:07 | P.HP ---
Certification for Inpatient With expected LOS: <2 Midnights Patient will require the following post-hospital care: None Practitioner: I am a practitioner with admitting privileges, knowledge of patient current condition, hospital course, and medical plan of care. Services: Services provided to patient in accordance with Admission requirements found in Title 42 Section 412.3 of the Code of Federal Regulations Patient History Date of Service: 01/16/22 Allergies vancomycin Allergy (Severe, Verified 09/21/21 12:58) Hives/Rash Home Medications: Gabapentin 600 mg PO BID 05/25/20 Metformin HCl 1,000 mg PO BID 05/25/20 Insulin Degludec [Tresiba Flextouch U-100] 20 unit SQ SEECOM 09/04/21 Insulin Degludec [Tresiba Flextouch U-100] 32 unit SQ SEECOM 09/04/21 Acetaminophen [Tylenol Extra Strength] 3 tab PO BID 10/23/21 - Past Medical/Surgical History Diabetic: Yes -: Diabetes -: diabetic ulcers -: neuropathy -: sleep apnea -: DVT R leg -: vericose veins -: lymphedema -: rhabdomyolysis -: HTN -: jarvis lower leg surgery: broke and straightened -: debridement bilat great toes -: BLE vein surgery -: tonsillectomy - Family History Father -: Diabetes Mother -: Diabetes - Social History Alcohol use: No CD- Drugs: No Caffeine use: Yes Review of Systems General: Weakness, Malaise Eyes: Unremarkable ENT: Throat Pain Respiratory: Unremarkable Cardiovascular: Unremarkable Gastrointestinal: Unremarkable Musculoskeletal: Unremarkable Integumentary: Unremarkable Neurological: Unremarkable Physical Examination - Physical Exam General: Alert, Oriented x3 HEENT: Atraumatic, Normocephalic Respiratory: Diminished Cardiovascular: Normal pulses, Regular rate/rhythm, Normal S1 S2 Gastrointestinal: Soft and benign Neurological: Normal strength at 5/5 x4 extr - Studies Laboratory Data (last 24 hrs) 01/16/22 08:45: PT 11.1, INR 1.01 01/16/22 08:45: WBC 11.9 H, Hgb 15.1, Hct 44.9, Plt Count 179 01/16/22 08:45: Sodium 132 L, Potassium 4.2, BUN 15, Creatinine 0.82, Glucose 237 H, Magnesium 1.5 L, Total Bilirubin 0.6, AST 13 L, ALT 42, Alkaline Phosphatase 78 Microbiology Data (last 24 hrs): 01/16/22 09:25 Throat Group A Streptococcus Rapid Screen - Final Assessment and Plan - Plan 1. Malaise/fatigue: Deemed secondary to possible neuropathy. There is also possibility of underlying infectious process. We will hydrate him gently and start as needed pain control with tramadol. We will monitor symptomatology. Rapid Covid test was negative. 2. Type 2 diabetes, We will start patient on sliding scale insulin and glucose control with long- acting insulin. We will have him on carb restricted diet. 3. Morbid obesity: We will continue to encourage weight loss. 4. Hypertension: We will continue monitoring of blood pressure and antihypertensive medications. 5. Hypomagnesemia: Magnesium is low at 1.5. We will replete and monitor. Prophylaxis: Lovenox for DVT prophylaxis. CODE STATUS: Full code. Discharge Plan: Home - Advance Directives Does patient have a Living Will: No Does patient have a Durable POA for Healthcare: No
[2022-01-16] MEDS: ENOXAPARIN 40 MG/0.4 ML SQ SCH (18:00)
[2022-01-16] MEDS ORDERED: MORPHINE 2 MG/ML SYR ONE (20:29)
[2022-01-16] MEDS ORDERED: INSULIN -REGULAR HUMAN 50 UNIT/0.5 ML ML ONE (20:30)
[2022-01-16] MEDS ORDERED: ENOXAPARIN 40 MG/0.4 ML SQ ONE (20:30)
[2022-01-16] MEDS: MORPHINE 2 MG/ML SYR IV PRN (20:37)
[2022-01-16] MEDS: INSULIN -REGULAR HUMAN 50 UNIT/0.5 ML ML SQ SCH (20:37)
[2022-01-16 20:41] LABS: Creatine Phosphokinase 98 U/L (39-308)
[2022-01-16] MEDS ORDERED: ACETAMINOPHEN 325 MG TABLET PO PRN (20:41)
[2022-01-16 20:56] LABS: CKMB Creatine Kinase MB < 1.0 ng/mL (1.0-3.6)
[2022-01-16] MEDS ORDERED: ACETAMINOPHEN 325 MG TABLET ONE (21:58)
[2022-01-17] MEDS: HYDROCODONE/APAP 7.5/325 MG TAB PO PRN ×3 (00:46→22:49)
[2022-01-17] MEDS ORDERED: HYDROCODONE/APAP 7.5/325 MG TAB ONE ×2 (00:48→17:44)
[2022-01-17 01:02] LABS: Creatine Phosphokinase 116 U/L (39-308)
[2022-01-17 01:11] LABS: CKMB Creatine Kinase MB < 1.0 ng/mL (1.0-3.6)
[2022-01-17] MEDS: NA CHLORIDE 0.9% 1,000 ML IV SCH ×3 (03:00→22:10)
[2022-01-17] MEDS: MORPHINE 2 MG/ML SYR IV PRN ×2 (03:24→12:05)
[2022-01-17] MEDS ORDERED: MORPHINE 2 MG/ML SYR ONE ×3 (03:25→20:02)
[2022-01-17 03:58] LABS: Absolute Lymphocytes (CBC) 2.2 K/uL (0.7-4.9); Hematocrit 41.4 % (39.6-49.0); Lymphocytes % 21.6 % (15.3-44.8); RBC Red Blood Cell Count 4.78 M/uL (4.33-5.43)
[2022-01-17 04:06] LABS: BUN Blood Urea Nitrogen 13 mg/dL (7-18); Bicarbonate 30 mmol/L (21-32); Glucose Level 194 mg/dL (74-106); Potassium 3.7 mmol/L (3.5-5.1); Sodium Level 135 mmol/L (136-145)
[2022-01-17 04:07] LABS: HDL Cholesterol 40 mg/dL (40-60); LDL Cholesterol, Calculated 101 mg/dL (<130); Magnesium 1.8 mg/dL (1.8-2.4)
[2022-01-17] MEDS: INSULIN -REGULAR HUMAN 50 UNIT/0.5 ML ML SQ SCH ×4 (07:30→22:09)
[2022-01-17] MEDS ORDERED: INSULIN -REGULAR HUMAN 50 UNIT/0.5 ML ML ONE ×3 (08:18→17:44)
[2022-01-17] MEDS: ENOXAPARIN 40 MG/0.4 ML SQ SCH (09:00)
[2022-01-17] MEDS ORDERED: ENOXAPARIN 40 MG/0.4 ML SQ ONE (09:54)
[2022-01-17 10:15] LABS: Creatine Phosphokinase 110 U/L (39-308)
[2022-01-17 10:26] LABS: CKMB Creatine Kinase MB < 1.0 ng/mL (1.0-3.6)
--- NOTE | 2022-01-17 11:01 | EKG ---
Test Date: 2022-01-16 Test Time: 08:46:34 Threading Machine Feeder Automatic: NISH MEASUREMENT RESULTS: Intervals: Rate: 95 FL: 142 QRSD: 86 QT: 332 QTc: 417 [place]: P: 40 FL: 142 QRS: 131 T: 10 INTERPRETIVE STATEMENTS: Normal sinus rhythm Right axis deviation Cannot rule out Anterior infarct, age undetermined Abnormal ECG Compared to ECG 05/25/2020 11:51:36 Right-axis deviation now present Myocardial infarct finding now present Sinus tachycardia no longer present Electronically Signed On 01-17-22 10:57:35 CDT by Edy Levy
--- NOTE | 2022-01-17 11:01 | EKG ---
Test Date: 2022-01-16 Test Time: 08:48:17 System Software Developer: NISH MEASUREMENT RESULTS: Intervals: Rate: 96 [place]: 144 QRSD: 86 QT: 332 QTc: 419 [place]: P: 36 [place]: 144 QRS: 128 T: 7 INTERPRETIVE STATEMENTS: Normal sinus rhythm Right axis deviation Cannot rule out Anterior infarct, age undetermined Abnormal ECG Compared to ECG 01/16/2022 08:46:34 No significant changes Electronically Signed On 01-17-22 10:57:35 CDT by Edy Levy
[2022-01-17] MEDS ORDERED: NA CHLORIDE 0.9% 1,000 ML ONE (14:16)
--- NOTE | 2022-01-17 17:05 | P.PN ---
Subjective Date of Service: 01/17/22 Subjective: No new changes Physical Examination - Vital Signs Temperature: 98.6 F Blood Pressure: 123/71 Pulse: 70 Respirations: 15 Pulse Ox (%): 99 - Physical Exam General: Alert, Oriented x3 HEENT: Atraumatic, Normocephalic Neck: Supple Respiratory: Normal air movement Cardiovascular: Regular rate/rhythm, Normal S1 S2 Gastrointestinal: Soft and benign Neurological: Normal speech - Studies Laboratory Data (last 24 hrs) 01/17/22 03:17: Sodium 135 L, Potassium 3.7, BUN 13, Creatinine 0.74, Glucose 194 H, Phosphorus 3.0, Magnesium 1.8, Triglycerides 221 H, Cholesterol 185, HDL Cholesterol 40, Cholesterol/HDL Ratio 4.63 01/17/22 03:17: WBC 10.3, Hgb 14.0, Hct 41.4, Plt Count 160 Assessment And Plan - Plan 1. Malaise/fatigue: Still quite lethargic. Vitals are stable. No new development. Continue to follow labs and symptomatology 2. Type 2 diabetes, We will continue on sliding scale insulin and glucose control with long-acting insulin. We will have him on carb restricted diet. 3. Morbid obesity: We will continue to encourage weight loss. 4. Hypertension: We will continue monitoring of blood pressure and antihypertensive medications. 5. Hypomagnesemia: Magnesium is better today 1.8. We will follow on daily labs. Disposition: For possible discharge in next 24hr.
[2022-01-17 21:44] VITALS: BMI 52.4
[2022-01-17 22:45] LABS: Urine Appearance CLEAR (Clear); Urine Bilirubin NEGATIVE (Negative); Urine Blood NEGATIVE (Negative); Urine Color YELLOW (Yellow); Urine Glucose 3+ (Negative); Urine Protein NEGATIVE (Negative); Urine Specific Gravity >=1.030 (1.005-1.030)
[2022-01-17 22:53] LABS: Urine Bacteria <20 /HPF (NONE SEEN); Urine RBC <5 /HPF (NONE SEEN)
[2022-01-17 23:51] VITALS: O2SAT 96
[2022-01-18] MEDS: MORPHINE 2 MG/ML SYR IV PRN ×2 (01:38→08:13)
[2022-01-18 04:02] LABS: BUN Blood Urea Nitrogen 17 mg/dL (7-18); Bicarbonate 29 mmol/L (21-32); Glucose Level 192 mg/dL (74-106); Magnesium 1.7 mg/dL (1.8-2.4); Phosphorus 2.4 mg/dL (2.5-4.9); Potassium 3.8 mmol/L (3.5-5.1); Sodium Level 134 mmol/L (136-145)
[2022-01-18] MEDS: HYDROCODONE/APAP 7.5/325 MG TAB PO PRN (05:07)
[2022-01-18] MEDS: POTASS/SODIUM PHOSPHATE 1 PKT POWD.PACK PO SCH ×3 (05:09→08:13)
[2022-01-18] MEDS ORDERED: MAGNESIUM SULFATE 1 gm IVPB 1 GM/100 ML BAG IV ONE (06:00)
[2022-01-18] MEDS: INSULIN -REGULAR HUMAN 50 UNIT/0.5 ML ML SQ SCH (08:12)
[2022-01-18] MEDS: ENOXAPARIN 40 MG/0.4 ML SQ SCH (08:13)
[2022-01-18] MEDS: NA CHLORIDE 0.9% 1,000 ML IV SCH (08:22)
[2022-01-18] MEDS ORDERED: POTASSIUM CL SA 10 MEQ TAB PO ONE (09:00)
--- NOTE | 2022-01-18 10:08 | P.DS ---
Admission Date: 01/17/22 Discharge Date: 01/18/22 Disposition: ROUTINE DISCHARGE Discharge Condition: GOOD Brief History of Present Illness: 41-year-old male patient with a history significant for morbid obesity, hypertension, diabetes type 2 was evaluated and here for episode of lethargy and general body weakness. He also complained of sore throat and suspicion for chills. He denied any overt episode of nausea vomiting, diarrhea. He was worked up in the emergency room and found to have no significant abnormality except for mild hyponatremia and elevated blood glucose in the 200s. He was admitted for management and work-up of general body aches/malaise to rule out cardiac issue. Hospital Course: His initial lab work and cultures revealed no significant abnormality. Over the course of his hospital stay his sore throat and general malaise episode resolved and his rapid COVID-19 test was negative. He was deemed stable for discharge home today to continue with routine care of his diabetes with long-acting insulin and Metformin. He is to report to his primary care doctor for post hospital discharge care. Vital Signs/Physical Exam: Temp Pulse Resp BP Pulse Ox 99 F 71 19 119/82 96 01/18/22 04:00 01/18/22 04:00 01/18/22 06:07 01/18/22 04:00 01/18/22 06:07 General: Alert, Oriented x3 HEENT: Atraumatic, Normocephalic Neck: Supple Respiratory: Normal air movement Cardiovascular: Regular rate/rhythm, Normal S1 S2 Gastrointestinal: Soft and benign Neurological: Normal speech, Normal strength at 5/5 x4 extr, Cranial nerves 3-12 intact Laboratory Data at Discharge: WBC 10.3 K/uL (4.3-10.9) 01/17/22 03:17 Hgb 14.0 g/dL (13.6-17.9) 01/17/22 03:17 Hct 41.4 % (39.6-49.0) 01/17/22 03:17 Plt Count 160 K/uL (152-406) 01/17/22 03:17 PT 11.1 SECONDS (9.5-12.5) 01/16/22 08:45 INR 1.01 01/16/22 08:45 Sodium 134 mmol/L (136-145) L 01/18/22 03:21 Potassium 3.8 mmol/L (3.5-5.1) 01/18/22 03:21 BUN 17 mg/dL (7-18) 01/18/22 03:21 Creatinine 0.72 mg/dL (0.55-1.3) 01/18/22 03:21 Glucose 192 mg/dL (74-106) H 01/18/22 03:21 Phosphorus 2.4 mg/dL (2.5-4.9) L 01/18/22 03:21 Magnesium 1.7 mg/dL (1.8-2.4) L 01/18/22 03:21 Total Bilirubin 0.6 mg/dL (0.2-1.0) 01/16/22 08:45 AST 13 U/L (15-37) L 01/16/22 08:45 ALT 42 U/L (12-78) 01/16/22 08:45 Alkaline Phosphatase 78 U/L (45-117) 01/16/22 08:45 Triglycerides 221 mg/dL (<150) H 01/17/22 03:17 Cholesterol 185 mg/dL (<200) 01/17/22 03:17 HDL Cholesterol 40 mg/dL (40-60) 01/17/22 03:17 Cholesterol/HDL Ratio 4.63 01/17/22 03:17 Home Medications: Gabapentin 600 mg PO BID 05/25/20 Metformin HCl 1,000 mg PO BID 05/25/20 Insulin Degludec [Tresiba Flextouch U-100] 20 unit SQ SEECOM 09/04/21 Insulin Degludec [Tresiba Flextouch U-100] 32 unit SQ SEECOM 09/04/21 Acetaminophen [Tylenol Extra Strength] 3 tab PO BID 10/23/21 Diet: ADA Followup: SABRA SHETTY [Primary Care Provider] -
[2022-01-18 13:16] VITALS: BP 119/68; TEMP 97.6
== END 2022-01-18 11:26 | disposition home or self-care (01) | DRG 638 ==
LOC: ER 07:46 → ERHOLD 17:10 → OBSVTOIN 01-17 15:23 → 2ND 01-17 21:12
PROVIDERS: ADMIT Internal Medicine Nephrology; ATTEND Internal Medicine Nephrology
DX: E11.65 Type 2 diabetes mellitus with hyperglycemia (principal); E87.1 Hypo-osmolality and hyponatremia; Z68.43 Body mass index [BMI] 50.0-59.9, adult; E66.01 Morbid (severe) obesity due to excess calories; I10 Essential (primary) hypertension; E83.42 Hypomagnesemia; Z79.4 Long term (current) use of insulin; Z86.718 Personal history of other venous thrombosis and embolism; Z20.822 Contact with and (suspected) exposure to COVID-19
CPT/HCPCS: 0241U; 36415; 70450; 70496; 71045; 80048; 80061; 80076; 81001; 81003; 82550; 82553; 82947; 83605; 83735; 83880; 84100; 84145; 84484; 85025; 85610; 87040; 87070; 87077; 87081; 87086; 87088; 87186; 93005; 99285; G0378; J1650; J1815; J2270; J2405; J3475; J7030; Q9967

== ENCOUNTER 2022-01-28 20:02 | Emergency (ER) | payer SELFPAY ==
--- OUTSIDE RECORDS SUMMARY | 2022-01-28 20:05 | XMS REPORT | Continuity of Care Document ---
:1980 Author Organization [facility] t Address [address] [place] [address] Care Team Providers Name Role Phone Unavailable Unavailable Unavailable Payers Payer Name Policy Type Policy Number Effective Date Expiration Date S ource Problems This patient has no known problems. Allergies, Adverse Reactions, Alerts Allergy Allergy Status Severity Reaction(s) Onset Inactive Treating Comm ents Source Name Type Date Date Clinician No DA Active U 2018-0 [facility] 12-01 [place] [facility] 00:00: [facility] 00 [facility] vancomyc DA Active SV 2018-0 [facility] in 2-25 [place] 00:00: [address] Medications This patient has no known medications. Procedures This patient has no known procedures. Results Test Description Test Time Test Comments Results Result Comments Source GLUBED 2018-12-03 11:29:00 Test Item Value Reference Range Interpretation Comme nts GLUBED (test code = GLUBED) 202 mg/dL 70-110 H BASIC METABOLIC [id number] 05:36:00 Test Item Value Reference Range Interpretation [...] code = 8.2 mg/dL 7.8-10.9 N CA) [id number] 05:01:00 Test Item Value Reference Range Interpretation Comments GLUBED (test code = GLUBED) 185 mg/dL 70-110 H CBC W/AUTO [id number] 04:37:00 Test Item Value Reference Range Interpretation [...] code = 0.00 K/mm3 0.00-0.20 N NRBC#) [id number] 20:40:00 Test Item Value Reference Range Interpretation Comments GLUBED (test code = GLUBED) 256 mg/dL 70-110 H [id number] 17:24:00 Test Item Value Reference Range Interpretation Comments GLUBED (test code = GLUBED) 244 mg/dL 70-110 H [id number] 11:31:00 Test Item Value Reference Range Interpretation Comments GLUBED (test code = GLUBED) 272 mg/dL 70-110 H - DUP LE ART [id number] 09:44:00 [place]: [address]: [facility]: [facility] 1980 Age/S: 37[facility]M [address] Unit #: [id number] Loc: [address] [place], [place] [address] Phys: Keny Duran MD Acct: [id number] Dis Date: Status: ADM IN PHONE #: [phone] Exam Date: 12/02/2018 033 FAX #: [phone] Reason: diabetic ulcers EXAMS: CPT CODE: [id number] DUP LE ART ARAVIND [id number]: Ulcers TECHNIQUE: Grayscale B-mode, color-flow, and spectral [...] 45-117 N TOTAL (test code = ALKP) [id number] 06:17:00 Test Item Value Reference Range Interpretation Comments MAGNESIUM (test code = MAG) 2.0 mg/dL 1.5-2.1 N COMPREHENSIVE METABOLIC [id number] 06:10:00 Test Item Value Reference Range Interpretation [...] TOTAL (test U/L 45-117 code = ALKP) [id number] 06:10:00 Test Item Value Reference Range Interpretation Comments MAGNESIUM (test code = MAG) mg/dL 1.5-2.1 - CT CHEST W/O [id number] 05:51:00 [place]: [address]: [facility]: [facility] 1980 Age/S: 37/M [address] [facility] Unit #: [id number] Loc: [address] [place], [place] [address] Phys: Keny Duran MD Acct: [id number] Dis Date: Status: ADM IN PHONE #: [phone] Exam Date: 12/01/2018 0534 FAX #: [phone] Reason: PNA CTDI: DLP: Automated exposure control, iterative reconstruction technique, and/oradjustment of mA and/or kV according to patient's size was utilized fooptimum radiation dose reduction. EXAMS: CPT CODE: [id number] CT CHEST W/O CONTRAST 81470 HISTORY: Pneumonia TECHNIQUE: Axial tomograms through the [...] abnormalities on this limited noncontrast examination. at 0548 Reported and signed by: LLOYD OGLESBY M.D. Facility ACR Accreditation for [place] - May 2012 CC: Keny Duran MD; Sunday Mendoza NP Technologist: CLAUDIA LUTZ RT(R)(CT) Transcribed Date/Time/By: 12/02/2018 (0551) : By: [email or web address] Orig Print D/T: S: 12/02/2018 (0544) PAGE 1 Signed ReportCBC W/AUTO [id number] 05:44:00 Test Item Value Reference Range Interpretation [...] code = 0.00 K/mm3 0.00-0.20 N NRBC#) [id number] 05:10:00 Test Item Value Reference Range Interpretation Comments GLUBED (test code = GLUBED) 201 mg/dL 70-110 H - DUP VEIN [id number] 04:37:00 [place]: [facility] St: [facility]: [facility] 1980 Age/S: 37/M [address] Unit #: [id number] Loc: [address] [place], [place] [address] Phys: Keny Duran MD Acct: [id number] Dis Date: Status: ADM IN PHONE #: [phone] Exam Date: 12/02/2018237 FAX #: [phone] Reason: BLE SWELLING EXAMS: CPT CODE: [id number] DUP VEIN ARAVIND [address]4930 HISTORY: Bilateral swelling TECHNIQUE: Grayscale real-time B-mode [...] By: [email or web address] Orig Print D/T: S: 12/02/2018 (044) PAGE 1 Signed Report- XR FOOT 2 VIEWS RT 2018-12-02 00:17:00 FAX: Keny Leonard MD Cam[place]: ER St: ADM FAX: Sunday Mendoza NP [phone] Name[facility] : 1980 Age/S: 37/M [address] [facility] Unit #: [id number] Loc: [address] [address] Phys: Keny Duran MD Acct: [id number] Dis Date: Status: ADM IN PHONE #: [phone] Exam Date: 12/01/2018 2304 FAX #: [phone] Reason: GREAT TOE ULCER EXAMS: CPT CODE: [id number] XR FOOT [address] [place] [address] LOCATION: V20 EXAM: - XR FOOT 2 [...] 1 Signed Report- XR FOOT 2 VIEWS [id number] 00:17:00 FAX: Keny Leonard MD Cam[place]: ER St: ADM FAX: Sunday Mendoza NP [phone] Name[facility] 1980 Age/S: 37/M [address] [facility] Unit #: [id number] Loc: [address] [place], [place] [address] Phys: Keny Duran MD Acct: [id number] Dis Date: Status: ADM IN PHONE #: [phone] Exam Date: 12/01/2018 2304 FAX #: [phone] Reason: GREAT TOE ULCER EXAMS: CPT CODE: [id number] XR FO[place] [address] [place] [address] LOCATION: V20 EXAM: - XR FOOT 2 [...] H code = GLYHGB) MEAN BLOOD GLUCOSE [id number] 22:46:00 Test Item Value Reference Range Interpretation Comments MEAN BLOOD GLUCOSE CALCULATION (test 228.8 code = MBGCALC) URINALYSIS W/O [id number] 21:41:00 Test Item Value Reference Range Interpretation [...] code = LEUU) SOURCE: URINESPECIMEN DESCRIPTION: CMCUA [id number] 21:41:00 Test Item Value Reference Range Interpretation Comments UA WBC (test code = WBCU) 2-5 0-5 UA RBC (test code = RBCU) 0-2 0-5 UA SQUAMOUS CELLS (test code = 5-10 #/lpf NONE SEEN SQU) SOURCE: URINESPECIMEN DESCRIPTION: CMCURINALYSIS W/O [id number] 21:04:00 Test Item Value Reference Range Interpretation [...] code = LEUU) SOURCE: URINESPECIMEN DESCRIPTION: CMCUA [id number] 21:04:00 Test Item Value Reference Range Interpretation Comments UA WBC (test code = WBCU) 0-5 UA RBC (test code = RBCU) 0-5 SOURCE: URINESPECIMEN DESCRIPTION: CMCURINALYSIS W/O [id number] 21:04:00 Test Item Value Reference Range Interpretation [...] code = LEUU) SOURCE: URINESPECIMEN DESCRIPTION: CMCUA [id number] 21:04:00 Test Item Value Reference Range Interpretation Comments UA WBC (test code = WBCU) 0-5 UA RBC (test code = RBCU) 0-5 SOURCE: URINESPECIMEN DESCRIPTION: [facility] [id number] 20:50:00 Test Item Value Reference Range Interpretation Comments POC LACTIC ACID (test code = 1.61 MMOL/L 0.40-2.00 N POCLAC) - XR CHEST 1 [id number] 20:42:00 FAX: Xavier Maguire [phone] [place]: ER St: REG Name: [facility] : 1980 Age/S: 37/M [address] Unit #: [id number] Loc: .[place], [place] [address] Phys: Xavier Maguire MD Acct: [id number] Dis Date: Status: REG ER PHONE #: [phone] Exam Date: 12/01/20182039 FAX #: [phone] Reason: code sepsis EXAMS: CPT CODE: [id number] XR CHEST 1 V [address] LOCATION: V20 EXAM: - XR CHEST 1 [...] dose reduction. PAGE 1 Signed ReportHEPATIC FUNCTION [id number] 19:50:00 Test Item Value Reference Range Interpretation [...] 45-117 N TOTAL (test code = ALKP) [id number] 19:50:00 Test Item Value Reference Range Interpretation Comments LIPASE (test code = 120 U/L 73-393 N Reportin g units: LIP) International U nits/L NT PRO-BRAIN NATRIURETIC [id number] 19:50:00 Test Item Value Reference Range Interpretation Comments NT PRO-BRAIN NATRIURETIC PEPTI (test 18 pg/mL 0-125 N code = PROBNP) [id number] 19:50:00 Test Item Value Reference Range Interpretation [...] 0.05 ng/mL 0.00-0.05 N PROCAL) CHEMISTRY 8 [id number] 19:36:00 Test Item Value Reference Range Interpretation [...] 0.7 MG/DL 0.6-1.0 N CREATBED) HEPATIC FUNCTION [id number] 19:36:00 Test Item Value Reference Range Interpretation [...] 45-117 N TOTAL (test code = ALKP) [id number] 19:36:00 Test Item Value Reference Range Interpretation Comments LIPASE (test code = 120 U/L 73-393 N Reportin g units: LIP) International U nits/L NT PRO-BRAIN NATRIURETIC [id number] 19:36:00 Test Item Value Reference Range Interpretation Comments NT PRO-BRAIN NATRIURETIC PEPTI (test 18 pg/mL 0-125 N code = PROBNP) [id number] 19:36:00 Test Item Value Reference Range Interpretation [...] (test code = ng/mL 0.00-0.05 PROCAL) PROTHROMBIN [id number] 19:25:00 Test Item Value Reference Interpretation Comments [...] THE PATIENT ON ANY ANTICOAGULANTS? NTHROMBOPLASTIN TIME [id number] 19:25:00 Test Item Value Reference Range Interpretation Comments THROMBOPLASTIN TIME PARTIAL 27.0 SECONDS 23.0-32.0 N (test code = PTT) IS THE PATIENT ON ANY ANTICOAGULANTS? NPOC LACTIC [id number] 19:11:00 Test Item Value Reference Range Interpretation Comments POC LACTIC ACID 2.68 MMOL/L 0.40-2.00 H RESULTS CALL ED TO [] (test code = POCLAC) [place] [address]/01/18.NMI-JESUS MEZA L VALUE READ BA CK BY NURSE AND VERIF IED BY TECH? []REFEREN CE RANGES FOR: 1) ARTERIAL SAMPLE (0.5-1.6MMOL/L) 2) SPINAL FLUID (0.6-2.2MMOL/L) CBC W/AUTO [id number] 19:08:00 Test Item Value Reference Range Interpretation [...]
[2022-01-28 20:24] LABS: Urine Blood 3+ (Negative); Urine Glucose 3+ (Negative); Urine Protein Trace (Negative)
[2022-01-28] MEDS ORDERED: MORPHINE 4 MG/ML SYR ONE ×2 (20:43→23:00)
[2022-01-28] MEDS ORDERED: ONDANSETRON 4 MG/2 ML VIAL ONE (20:43)
[2022-01-28 21:12] LABS: Absolute Lymphocytes (CBC) 2.7 K/uL (0.7-4.9); Hematocrit 41.6 % (39.6-49.0); MPV 8.5 fL (7.6-11.3); RBC Red Blood Cell Count 4.87 M/uL (4.33-5.43)
[2022-01-28 21:18] LABS: Albumin 3.3 g/dL (3.4-5.0); Bilirubin Total 0.3 mg/dL (0.2-1.0); Potassium 4.1 mmol/L (3.5-5.1); Protein, Total 7.9 g/dL (6.4-8.2)
--- NOTE | 2022-01-28 21:26 | RAD REPORT ---
EXAM DESCRIPTION: CT - Stone Protocol - 01/28/2022 9:07 pm CLINICAL HISTORY: Abd pain COMPARISON: CT-STONE PROTOCOL dated 09/25/2009 TECHNIQUE: Axial 3 mm thick images were obtained without oral or IV contrast. The yshfg-tu-atwo span s the entirety of the system including uppermost abdomen and lung bases. All CT scans are performed using dose optimization technique as appropriate and may include automated exposure control or mA/KV adjustment according to patient size. FINDINGS: No obstructing or nonobstructing calculi identified. Dilatation the right renal collecting system is present in the pelvis and calices. Distal ureter is not dilated. No left-sided hydronephro sis. Right kidney appears minimally edematous. No suspicious renal masses. Isodense masses and pyelon ephritis are not excluded on a stone protocol CT scan. No significant adrenal finding. No urinary lan dder suspicious finding. Imaged portions of the liver, spleen and pancreas show no suspicious findings on non-contrast imaging . Liver is probably fatty infiltrated. No acute gallbladder or biliary tree finding. No suspicious bowel findings. Sigmoid colon is tortuous and redundant extending to the upper anterior mid right abdomen. No direct or indirect evidence for appendicitis. Patient has a mobile cecum confi guration with the cecum in the anterior mid right abdomen. No mass or bulky lymphadenopathy. Small mesenteric and aortoiliac lymph nodes are present. Small fat only right inguinal hernia is present. No free air, free fluid or inflammatory stranding. No significant bony abnormality. IMPRESSION: Right renal pelvis and calices are dilated compared to the remote 2008 study. Right kidn ey appears mildly edematous. No left-sided dilatation. No obstructing calculus seen. Chronicity of the right renal pelvis findings unknown. Blood or inflamm atory debris can cause obstruction. No acute GI finding. Small nonspecific lymph nodes are seen. Fatty infiltration of the liver. Isodense masses and pyelonephritis are not excluded on stone protocol technique.
[2022-01-28] MEDS ORDERED: CEFTRIAXONE 1000 MG/VIAL ONE (23:00)
--- NOTE | 2022-01-28 23:51 | ER ---
Nurse's Notes [facility] Name: Addy Quintana Jr Age: 41 yrs Sex: Male : 1980 Arrival Date: 01/28/2022 Time: 20:05 Bed 10 Private MD: Lulu Soto Diagnosis: Pyelonephritis acute Presentation: 01/28 20:17 Chief complaint: Patient states: C/O ARAVIND back pain, blood in urine X 2 days. ld1 Coronavirus screen: At this time, the client does not indicate any symptoms associated with coronavirus-19. Ebola Screen: No symptoms or risks identified at this time. Initial Sepsis Screen: Does the patient meet any 2 criteria? No. Patient's initial sepsis screen is negative. Does the patient have a suspected source of infection? No. Patient's initial sepsis screen is negative. Risk Assessment: Do you want to hurt yourself or someone else? Patient reports no desire to harm self or others. Onset of symptoms was January 28, 2022. 20:17 Method Of Arrival: Ambulatory ld1 20:17 Acuity: FLORENCIO 4 ld1 Triage Assessment: 20:17 General: Appears in no apparent distress. uncomfortable, Behavior is cooperative, ld1 anxious, fussy. Pain: Complains of pain in low back area Pain does not radiate. Pain currently is 9 out of 10 on a pain scale. Pain began 2-3 days ago. EENT: No signs and/or symptoms were reported regarding the EENT system. Neuro: Level of Consciousness is awake, alert, obeys commands, Oriented to person, place, time, situation, Appropriate for age. Cardiovascular: Capillary refill < 3 seconds Patient's skin is warm and dry. Respiratory: Airway is patent Respiratory effort is even, unlabored. GI: Abdomen is round non-distended, obese. : Reports pain in bilateral flank(s). : Reports. Derm: No signs and/or symptoms reported regarding the dermatologic system. Musculoskeletal: Range of motion: intact in all extremities. Historical: - Allergies: 20:17 VANCOMYCIN AND DERIVATIVES; ld1 - Home Meds: 20:17 metformin 1,000 mg Oral tab 1 tab 2 times per day [Active]; Tresiba FlexTouch U-100 100 ld1 unit/mL (3 mL) subcutaneous inpn [Active]; - PMHx: 20:17 Blounts; Diabetes - IDDM; DVT; Hypertension; Hypercholesterolemia; neuropathy; ld1 - PSHx: 20:17 Aravind knee sx; ld1 - Immunization history:: Adult Immunizations up to date, Client reports receiving the 2nd dose of the Covid vaccine. - Social history:: Smoking status: Patient denies any tobacco usage or history of. Patient uses alcohol, occasionally. Screenin:19 Abuse screen: Denies threats or abuse. Denies injuries from another. Nutritional ld1 screening: No deficits noted. Tuberculosis screening: No symptoms or risk factors identified. Fall Risk None identified. Assessment: 20:19 Reassessment: See triage assessment. Neuro: Level of Consciousness is awake, alert, ld1 obeys commands, Oriented to person, place, time, situation. 22:42 Reassessment: Patient appears in no apparent distress at this time. Patient and/or ld1 family updated on plan of care and expected duration. Pain level reassessed. Patient is alert, oriented x 3, equal unlabored respirations, skin warm/dry/pink. Vital Signs: 20:17 BP 129 / 59; Pulse 90; Resp 20; Temp 98.7(TE); Pulse Ox 97% on R/A; Weight 154.22 kg; ld1 Height 5 ft. 7 in. (170.18 cm); Pain 9/10; 22:42 BP 118 / 74; Pulse 86; Resp 18; Pulse Ox 97% on R/A; Pain 3/10; ld1 20:17 Body Mass Index 53.25 (154.22 kg, 170.18 cm) ld1 ED Course: 20:05 Patient arrived in ED. mr 20:05 Lulu Soto is Private Physician. mr 20:15 Bg Mirza MD is Attending Physician. kdr 20:16 Cookie Rodgers, GÓMEZ is Primary Nurse. ld1 20:17 Triage completed. ld1 20:17 Arm band placed on right wrist. ld1 20:19 Patient has correct armband on for positive identification. Placed in gown. Bed in low ld1 position. Call light in reach. Side rails up X2. Pulse ox on. NIBP on. Door closed. Noise minimized. Warm blanket given. 20:19 No provider procedures requiring assistance completed. ld1 20:58 Inserted saline lock: 20 gauge in right antecubital area, using aseptic technique. ld1 Blood collected. 21:09 CT Stone Protocol In Process Unspecified. EDMS 23:48 Kang Penn MD is Referral Physician. kdr 01/29 00:05 IV discontinued, intact, bleeding controlled, No redness/swelling at site. ld1 Administered Medications: 01/28 20:57 Drug: morphine 4 mg Route: IVP; Site: right antecubital; ld1 20:57 Drug: Zofran (Ondansetron) 4 mg Route: IVP; Site: right antecubital; ld1 23:01 Drug: Rocephin - (cefTRIAXone) 1 grams Route: IVPB; Infused Over: 30 mins; Site: right ld1 antecubital; 23:02 Drug: morphine 4 mg Route: IVP; Site: right antecubital; ld1 23:53 Drug: [place] (HYDROcodone-acetaminophen) 10 mg-325 mg 1 tabs Route: PO; ld1 Outcome: 23:50 Discharge ordered by . kdr 01/29 00:04 Discharged to home ambulatory. ld1 Condition: stable Discharge instructions given to patient, Instructed on discharge instructions, follow up and referral plans. medication usage, Demonstrated understanding of instructions, follow-up care, medications, Prescriptions given X 3. 00:05 Patient left the ED. ld1 Signatures: Dispatcher [employer] Bg Montejo MD MD kdr Rivera, Mary mr Cookie Rodgers, RN RN ld1
--- NOTE | 2022-01-28 23:51 | EDPHYS ---
Physician Documentation [facility] Name: Addy Quintana Jr Age: 41 yrs Sex: Male : 1980 Arrival Date: 01/28/2022 Time: 20:05 Bed 10 Private MD: Lulu Soto ED Physician Bg Mirza HPI: 01/29 02:09 This 41 yrs old Male presents to ER via Ambulatory with complaints of Back kdr Pain, Urinary Problem. 02:09 The patient presents with pain that is acute, with no known mechanism of injury. The kdr symptoms are located in the Patient has pain broadly across his low back but mostly on the right with right CVA tenderness. Onset: The symptoms/episode began/occurred acutely, 2 day(s) ago. Right flank. Associated signs and symptoms: Pertinent positives: nausea, vomiting, weakness. Modifying factors: The patient symptoms are alleviated by nothing, the patient symptoms are aggravated by any movement. Severity of symptoms: At their worst the symptoms were moderate, severe, just prior to arrival, in the emergency department the symptoms are unchanged. The patient has not experienced similar symptoms in the past. The patient has not recently seen a physician. Historical: - Allergies: 01/28 20:17 VANCOMYCIN AND DERIVATIVES; ld1 - Home Meds: 20:17 metformin 1,000 mg Oral tab 1 tab 2 times per day [Active]; Tresiba FlexTouch U-100 100 ld1 unit/mL (3 mL) subcutaneous inpn [Active]; - PMHx: 20:17 Blounts; Diabetes - IDDM; DVT; Hypertension; Hypercholesterolemia; neuropathy; ld1 - PSHx: 20:17 Dion knee sx; ld1 - Immunization history:: Adult Immunizations up to date, Client reports receiving the 2nd dose of the Covid vaccine. - Social history:: Smoking status: Patient denies any tobacco usage or history of. Patient uses alcohol, occasionally. ROS: 01/29 02:09 Constitutional: Negative for fever, chills, and weight loss, Eyes: Negative for injury, kdr pain, redness, and discharge, ENT: Negative for injury, pain, and discharge, Neck: Negative for injury, pain, and swelling, Cardiovascular: Negative for chest pain, palpitations, and edema, Respiratory: Negative for shortness of breath, cough, wheezing, and pleuritic chest pain, MS/Extremity: Negative for injury and deformity, Skin: Negative for injury, rash, and discoloration, Neuro: Negative for headache, weakness, numbness, tingling, and seizure activity. Psych: Negative for depression, anxiety, suicide ideation, homicidal ideation, and hallucinations, Allergy/Immunology: Negative for hives, rash, and allergies, Endocrine: Negative for neck swelling, polydipsia, polyuria, polyphagia, and marked weight changes, Hematologic/Lymphatic: Negative for swollen nodes, abnormal bleeding, and unusual bruising. Abdomen/GI: Positive for nausea and vomiting, Negative for abdominal pain, diarrhea, constipation, abdominal cramps. Back: Positive for flank pain, on the right, radiated pain. Exam: 02:09 Constitutional: This is a well developed, well nourished patient who is awake, alert, kdr and in moderate distress. Head/Face: Normocephalic, atraumatic. Eyes: Pupils equal round and reactive to light, extra-ocular motions intact. Lids and lashes normal. Conjunctiva and sclera are non-icteric and not injected. Cornea within normal limits. Periorbital areas with no swelling, redness, or edema. Neck: Trachea midline, no thyromegaly or masses palpated, and no cervical lymphadenopathy. Supple, full range of motion without nuchal rigidity, or vertebral point tenderness. No Meningismus. Chest/axilla: Normal chest wall appearance and motion. Nontender with no deformity. No lesions are appreciated. Cardiovascular: Regular rate and rhythm with a normal S1 and S2. No gallops, murmurs, or rubs. Normal PMI, no JVD. No pulse deficits. Respiratory: Lungs have equal breath sounds bilaterally, clear to auscultation and percussion. No rales, rhonchi or wheezes noted. No increased work of breathing, no retractions or nasal flaring. Skin: Warm, dry with normal turgor. Normal color with no rashes, no lesions, and no evidence of cellulitis. MS/ Extremity: Pulses equal, no cyanosis. Neurovascular intact. Full, normal range of motion. Neuro: Awake and alert, GCS 15, oriented to person, place, time, and situation. Cranial nerves II-XII grossly intact. Motor strength 5/5 in all extremities. Sensory grossly intact. Cerebellar exam normal. Normal gait. Psych: Awake, alert, with orientation to person, place and time. Behavior, mood, and affect are within normal limits. 02:09 Abdomen/GI: Inspection: obese Bowel sounds: normal, Palpation: soft, nontender. 02:09 Back: pain, that is moderate, of the right mid back. Vital Signs: 01/28 20:17 BP 129 / 59; Pulse 90; Resp 20; Temp 98.7(TE); Pulse Ox 97% on R/A; Weight 154.22 kg; ld1 Height 5 ft. 7 in. (170.18 cm); Pain 9/10; 22:42 BP 118 / 74; Pulse 86; Resp 18; Pulse Ox 97% on R/A; Pain 3/10; ld1 20:17 Body Mass Index 53.25 (154.22 kg, 170.18 cm) ld1 MDM: 23:50 Patient medically screened. kdr 01/29 02:09 Data reviewed: vital signs, nurses notes, lab test result(s), radiologic studies. kdr Counseling: I had a detailed discussion with the patient and/or guardian regarding: the historical points, exam findings, and any diagnostic results supporting the discharge/admit diagnosis, lab results, radiology results, the need for outpatient follow up. ED course: Patient had marked improvement with interventions given. He was happy with the care provided and the plan for discharge and follow-up. 01/28 20:25 Order name: Urine Dipstick-Ancillary; Complete Time: 20:30 EDMS 01/28 20:30 Order name: CBC with Diff; Complete Time: 22:52 kdr 01/28 20:30 Order name: CMP; Complete Time: 22:52 kdr 01/28 20:35 Order name: CT Stone Protocol; Complete Time: 22:52 mw2 01/28 20:15 Order name: Urine Dipstick-Ancillary (obtain specimen); Complete Time: 20:24 kdr 01/28 20:30 Order name: IV Saline Lock; Complete Time: 20:57 kdr 01/28 20:30 Order name: Labs collected and sent; Complete Time: 20:57 kdr Administered Medications: 01/28 20:57 Drug: morphine 4 mg Route: IVP; Site: right antecubital; ld1 20:57 Drug: Zofran (Ondansetron) 4 mg Route: IVP; Site: right antecubital; ld1 23:01 Drug: Rocephin - (cefTRIAXone) 1 grams Route: IVPB; Infused Over: 30 mins; Site: right ld1 antecubital; 23:02 Drug: morphine 4 mg Route: IVP; Site: right antecubital; ld1 23:53 Drug: [place] (HYDROcodone-acetaminophen) 10 mg-325 mg 1 tabs Route: PO; ld1 Disposition Summary: 01/28/22 23:50 Discharge Ordered Location: Home kdr Problem: new kdr Symptoms: have improved kdr Condition: Stable kdr Diagnosis - Pyelonephritis acute kdr Followup: kdr - With: Kang Penn MD - When: 1 - 2 days - Reason: If symptoms return, Further diagnostic work-up, Recheck today's complaints, Continuance of care, Re-evaluation by your physician Discharge Instructions: - Discharge Summary Sheet kdr - Pyelonephritis, Adult, Cosa-ru-Tkrt kdr Forms: - Medication Reconciliation Form kdr - Thank You Letter kdr - Antibiotic Education kdr - Prescription Opioid Use kdr Prescriptions: - Flomax 0.4 mg Oral capsule - take 1 capsule by ORAL route once daily 1/2 hour following the same meal each kdr day; 10 capsule; Refills: 0, Product Selection Permitted - Cipro 500 mg Oral Tablet - take 1 tablet by ORAL route every 12 hours for 7 days; 14 tablet; Refills: 0, kdr Product Selection Permitted - Tylenol-Codeine #3 300 mg-30 mg Oral - take 2 tablet by ORAL route every 4-6 hours As needed; 16 tablet; Refills: 0, kdr Product Selection Permitted Signatures: Dispatcher [employer] Bg Montejo MD MD kdr Cookie Rodgers, RN RN ld1
[2022-01-28] MEDS ORDERED: HYDROCODONE/APAP 10/325 TAB ONE (23:54)
[2022-01-29 00:35] VITALS: TEMP 98.7; O2SAT 97
[2022-01-29 00:37] VITALS: BP 118/74
== END 2022-01-29 00:05 | disposition home or self-care (01) ==
LOC: ER 20:02
DX: N10 Acute pyelonephritis (principal); E11.9 Type 2 diabetes mellitus without complications; I10 Essential (primary) hypertension; Z79.4 Long term (current) use of insulin; Z86.718 Personal history of other venous thrombosis and embolism; Z88.3 Allergy status to other anti-infective agents
CPT/HCPCS: 36415; 74176; 76377; 80053; 81003; 85025; 96374; 96375; 99284; J2405

== ENCOUNTER 2022-05-25 17:24 | Emergency (ER) | payer OTHER, SELFPAY ==
--- OUTSIDE RECORDS SUMMARY | 2022-05-25 17:46 | XMS REPORT | Continuity of Care Document ---
:1980 Author Organization [facility] t Address [address] [place] [address] Care Team Providers Name Role Phone Unavailable Unavailable Unavailable Payers Payer Name Policy Type Policy Number Effective Date Expiration Date S ource Problems This patient has no known problems. Allergies, Adverse Reactions, Alerts Allergy Allergy Status Severity Reaction(s) Onset Inactive Treating Comm ents Source Name Type Date Date Clinician No DA Active U 2018-0 [facility] Allergy 12-01 Kimberly Informat 00:00: [facility] vancomyc DA Active SV 2018-0 [facility] in 2-25 [place] 00:00: [address] Medications This patient has no known medications. Procedures This patient has no known procedures. Results Test Description Test Time Test Comments Results Result Comments Source GLUBED 2018-12-03 11:29:00 Test Item Value Reference Range Interpretation Comme nts GLUBED (test code = GLUBED) 202 mg/dL 70-110 H BASIC METABOLIC [id number] 05:36:00 Test Item Value Reference Range Interpretation [...] Kidney damage w/normal or inc reased GFR >90Stage 2: Kidney damage w /mild decrease in GFR 60 - 89Stage 3: Mode rate decrease in GFR 30 - 59Stage 4: Apryl re decrease in GFR 15 - 29Stage 5: Kidn ey failure < 15 (o r dialysis) CREATININE (test code 0.8 mg/dL 0.6-1.0 N = CREAT) CALCIUM (test code = 8.2 mg/dL 7.8-10.9 N CA) [id number] 05:01:00 Test Item Value Reference Range Interpretation Comments GLUBED (test code = GLUBED) 185 mg/dL 70-110 H CBC W/AUTO [id number] 04:37:00 Test Item Value Reference Range Interpretation [...] code = 0.00 K/mm3 0.00-0.20 N NRBC#) [id number] 20:40:00 Test Item Value Reference Range Interpretation Comments GLUBED (test code = GLUBED) 256 mg/dL 70-110 H [id number] 17:24:00 Test Item Value Reference Range Interpretation Comments GLUBED (test code = GLUBED) 244 mg/dL 70-110 H [id number] 11:31:00 Test Item Value Reference Range Interpretation Comments GLUBED (test code = GLUBED) 272 mg/dL 70-110 H - DUP LE ART [id number] 09:44:00 [place]: [address]: [facility]: [facility] 1980 Age/S: 37/M [address] Unit #: [id number] Loc: [address] [place], [place] [address] Phys: Keny Duran MD Acct: [id number] Dis Date: Status: ADM IN PHONE #: [phone] Exam Date: 12/02/2018338 FAX #: [phone] Reason: diabetic ulcers EXAMS: CPT CODE: [id number] DUP LE ART ARAVIND 35012 HISTORY: Ulcers TECHNIQUE: Grayscale B-mode, color-flow, and spectral Doppler analysis of the lower extremity arterial vasculaturewas performed. COMPARISON: None available time of interpretation. FINDINGS: Right lower extremity: Triphasic and biphasic waveforms are demonstrated throughout the right lower extremity arterial structu res Left lower extremity: Probably triphasic and biphasic [...] 12/02/2018 (0944) : By: [email or web address] Orig Print D/T: S: 12/02/2018 (9800) PAGE 1 Signed ReportCOMPREHENSIVE METABOLIC [id number] 06:17:00 Test Item Value Reference Range Interpretation [...] w/mild d ecrease in GFR 60 - 89S tage 3: Moderate decrea se in GFR 30 - 59Stag e 4: Severe decrease in GFR 15 - 29Stage 5: Kidney failure < 15 (o r dialysis) CREATININE (test code 0.7 mg/dL 0.6-1.0 N [...] 45-117 N TOTAL (test code = ALKP) [id number] 06:17:00 Test Item Value Reference Range Interpretation Comments MAGNESIUM (test code = MAG) 2.0 mg/dL 1.5-2.1 N COMPREHENSIVE METABOLIC [id number] 06:10:00 Test Item Value Reference Range Interpretation [...] TOTAL (test U/L 45-117 code = ALKP) [id number] 06:10:00 Test Item Value Reference Range Interpretation Comments MAGNESIUM (test code = MAG) mg/dL 1.5-2.1 - CT CHEST W/O [id number] 05:51:00 [place]: [address]: [facility]: [facility] 1980 Age/S: 37/M [address] [facility] Unit #: [id number] Loc: [address] [place], [place] [address] Phys: Keny Duran MD Acct: [id number] Dis Date: Status: ADM IN PHONE #: [phone] Exam Date: 12/01/2018 0534 FAX #: [phone] Reason: PNA CTDI: DLP: Automated exposure control, iterative reconstruction technique, and/oradjustment of mA and/or kV according to patient's size was utilized fooptimum radiation dose reduction. EXAMS:CPT CODE: [id number] CT CHEST W/O CONTRAST 66214 HISTORY: Pneumonia TECHNIQUE: Axial tomograms through the chest were obtained without intravenous contrast. FINDINGS: Evaluation of mediastinal structures is limited without intravenous contrast. There is no significant mediastinal or hilar adenopathy. No significant pleural effusion. The aorta and mediastinal structures show no other significant abnormalities. The visualized lungs are clear. IMPRESSION: 1. No focal consolidation. No other acute abnorm alities on this limited noncontrast examination. at 0551 Reported and signed by: LLOYD OGLESBY M.D. Facility ACR Accreditation for [place] - May 2012 CC: Keny Duran MD; Sunday Mendoza NP Technologist: CLAUDIA LUTZ RT(R)(CT) Transcribed Date/Time/By: 12/02/2018 (0551) : By: [email or web address] Orig Print D/T: S: 12/02/2018 (0549) PAGE 1 Signed ReportCBC W/AUTO [id number] 05:44:00 Test Item Value Reference Range Interpretation [...] code = 0.00 K/mm3 0.00-0.20 N NRBC#) [id number] 05:10:00 Test Item Value Reference Range Interpretation Comments GLUBED (test code = GLUBED) 201 mg/dL 70-110 H - DUP VEIN [id number] 04:37:00 [place]: [facility] St: [facility]: [facility] 1980 Age/S: 37/M [address] Unit #: [id number] Loc: [address] [place], [place] [address] Phys: Keny Duran MD Acct: [id number] Dis Date: Status: ADM IN PHONE #: [phone] Exam Date: 12/02/2018237 FAX #: [phone] Reason: BLE SWELLING EXAMS: CPT CODE: [id number] DUP VEIN ARAVIND 58509 HISTORY: Bilateral swelling TECHNIQUE: Grayscale real-time B-mode imaging with color flow and spectral flow Doppler analysis was performed of the lower extremity. FINDINGS: There is normal flow, augmentation, and compressibility involvingthe deep venous structures bilaterally. Mildly prominent inguinal [...] 1 Signed Report- XR FOOT 2 VIEWS [id number] 00:17:00 FAX: Keny Leonard MD [place]: ER St: ADM FAX: Sunday Mendoza NP [phone] Name[facility] : 1980 Age/S: 37/M [address] [facility] Unit #: [id number] Loc: [address] [address] Phys: Keny Duran MD Acct: [id number] Dis Date: Status: ADM IN PHONE #: [phone] Exam Date: 12/01/2018 2304 FAX #: [phone] Reason: GREAT TOE ULCER EXAMS: CPT CODE: [id number] XR FO[place] [address] [place] [address] LOCATION: V20 EXAM: - XR FOOT 2 VIEWS LT, - XR FOOT 2 VIEWS RT HISTORY:GREAT TOE ULCER TECHNIQUE: Frontal and lateral views [...] open wound. There is no evidence of ancortical abnormality or focal osteopenia in either foot to indicate acute osteomyelitis. at 0017 Reported and signed by: DONTRELL DSOUZA M.D. CC: Keny Duran MD; Sunday Mendoza NP Technologist: JAILENE SWANSON RT (R)(ARRT); ... Transcribed Date/Time/By: 12/02/2018 (0017) :[email or web address] Orig Print D/T: S: 12/02/2018 (0021) Automated exposure control, iterative reconstruction technique, and/oradjustment of mA and/or kV according to patient's size was utilizedfor optimum radiation dose reduction. PAGE 1 Signed Report- XR FOOT 2 VIEWS [id number] 00:17:00 FAX: Keny Leonard MD Camps: ER St: ADM FAX: Sunday Mendoza NP [phone] Name: [facility] : 1980 Age/S: 37/M [address] [facility] Unit #: [id number] Loc: [address] [place] [address] Phys: Keny Duran MD Acct: [id number] Dis Date: Status: ADM IN PHONE #: [phone] Exam Date: 12/01/2018 2304 FAX #: [phone] Reason: GREAT TOE ULCER EXAMS: CPT CODE: [id number] XR FOOT [address] [place] [address] LOCATION: V20 EXAM: - XR FOOT 2 [...] left distal foot. There is question of shlhjvqxtu01 mm focus of subcutaneous soft tissue gas, correlate for open wound. There is no evidence of an cortical abnormality or focal osteopenia in either foot to indicate acute osteomyelitis. at 0017 Reported and signed by: DONTRELL DSOUZA M.D. CC: Silvano Duran MD; Sunday Mendoza NP Technologist: JAILENE SWANSON RT (R)(ARRT); ... Transcribed Date/Time/By: 12/02/2018 (0017) :[email or web address] Orig Print D/T: S: 12/02/2018 (0021) Automated exposure control, iterative reconstruction technique, and/oradjustment of mA and/or kV according to patient's size was utilizedfor optimum radiation dose reduction. PAGE 1 Signed ReportGLYCOSYLATED HEMOGLOBIN (HA1C)2018-12-01 22:46:00 Test Item Value Reference Range Interpretation Comments GLYCOSYLATED HEMOGLOBIN (HA1C) (test 9.6 % 4.4-6.4 H code = GLYHGB) MEAN BLOOD GLUCOSE [id number] 22:46:00 Test Item Value Reference Range Interpretation Comments MEAN BLOOD GLUCOSE CALCULATION (test 228.8 code = MBGCALC) URINALYSIS W/O [id number] 21:41:00 Test Item Value Reference Range Interpretation [...] (test code = LEUU) SOURCE: URINESPECIMEN DESCRIPTION: [facility] [id number] 21:41:00 Test Item Value Reference Range Interpretation Comments UA WBC (test code = WBCU) 2-5 0-5 UA RBC (test code = RBCU) 0-2 0-5 UA SQUAMOUS CELLS (test code = 5-10 #/lpf NONE SEEN SQU) SOURCE: URINESPECIMEN DESCRIPTION: CMCURINALYSIS W/O [id number] 21:04:00 Test Item Value Reference Range Interpretation [...] (test code = LEUU) SOURCE: URINESPECIMEN DESCRIPTION: [facility] [id number] 21:04:00 Test Item Value Reference Range Interpretation Comments UA WBC (test code = WBCU) 0-5 UA RBC (test code = RBCU) 0-5 SOURCE: URINESPECIMEN DESCRIPTION: CMCURINALYSIS W/O [id number] 21:04:00 Test Item Value Reference Range Interpretation [...] code = LEUU) SOURCE: URINESPECIMEN DESCRIPTION: CMCUA [id number] 21:04:00 Test Item Value Reference Range Interpretation Comments UA WBC (test code = WBCU) 0-5 UA RBC (test code = RBCU) 0-5 SOURCE: URINESPECIMEN DESCRIPTION: [facility]ATION[facility]OC LACTIC [id number] 20:50:00 Test Item Value Reference Range Interpretation Comments POC LACTIC ACID (test code = 1.61 MMOL/L 0.40-2.00 N POCLAC) - XR CHEST 1 [id number] 20:42:00 FAX: Xavier Maguire [phone] [place]: ER St: REG Name: [facility] : 1980 Age/S: 37/M [address] Unit #: [id number] Loc: [place], [place] [address] Phys: Xavier Maguire MD Acct: [id number] Dis Date: Status: REG ER PHONE #: [phone] Exam Date: 12/01/20182039 FAX #: [phone] Reason: code sepsis EXAMS: CPT CODE: [id number] XR CHEST 1 V 26576 LOCATION: V20 EXAM: - XR CHEST 1 V HISTORY: code sepsis TECHNIQUE: Frontal view of the chest. COMPARISON: None. FINDINGS: The lungs are adequately inflated. Asymmetric opacity in the right lung base may represent atelectasis or developing infiltrate. No evidence of pneumothorax or pleural effusion. Normal heart size. Mediastinal contours are within normal limits. Osseous structures are intact. IMPRESSION: Asymmetric opacity in the right lung base may represent atelectasis or developing infiltrate. at 2041 Reported and signed by: DONTRELL DSOUZA M.D.CC: Xavier Maguire MD Technologist: Keerthi Peraza RT(R)CT(ARRT) Transcribed Date/Time/By: 12/01/2018 (2041) :[email or web address] Orig Print D/T: S: 12/01/2018 (2044) Automated exposure control, iterative reconstruction technique, and/oradjustment of mA and/or kV according to patient's size was utilizedfor optimum radiation dose reduction. PAGE 1 Signed ReportHEPATIC FUNCTION [id number] 19:50:00 Test Item Value Reference Range Interpretation [...] 45-117 N TOTAL (test code = ALKP) [id number] 19:50:00 Test Item Value Reference Range Interpretation Comments LIPASE (test code = 120 U/L 73-393 N Reportin g units: LIP) International U nits/L NT PRO-BRAIN NATRIURETIC [id number] 19:50:00 Test Item Value Reference Range Interpretation Comments NT PRO-BRAIN NATRIURETIC PEPTI (test 18 pg/mL 0-125 N code = PROBNP) [id number] 19:50:00 Test Item Value Reference Range Interpretation Comments TROPONIN-I (test <0.02 ng/mL 0.00-0.05 N <0.05 Elin l0.06 - 0.39 code = TROPI) Consistent wit h circulating Tro ponin with possible M yocardial injury.>0.40 Co nsistent with Myocardial injury extensive enoug h to conform with AM I as defined by WHO. PROCALCITONIN (PCT)2018-12-01 19:50:00 Test Item Value Reference Range Interpretation Comments PROCALCITONIN (PCT) (test code = 0.05 ng/mL 0.00-0.05 N PROCAL) CHEMISTRY 8 [id number] 19:36:00 Test Item Value Reference Range Interpretation [...] 0.7 MG/DL 0.6-1.0 N CREATBED) HEPATIC FUNCTION [id number] 19:36:00 Test Item Value Reference Range Interpretation [...] 45-117 N TOTAL (test code = ALKP) [id number] 19:36:00 Test Item Value Reference Range Interpretation Comments LIPASE (test code = 120 U/L 73-393 N Reportin g units: LIP) International U nits/L NT PRO-BRAIN NATRIURETIC [id number] 19:36:00 Test Item Value Reference Range Interpretation Comments NT PRO-BRAIN NATRIURETIC PEPTI (test 18 pg/mL 0-125 N code = PROBNP) [id number] 19:36:00 Test Item Value Reference Range Interpretation Comments TROPONIN-I (test <0.02 ng/mL 0.00-0.05 N <0.05 Elin l0.06 - 0.39 code = TROPI) Consistent wit h circulating Tro ponin with possible M yocardial injury.>0.40 Co nsistent with Myocardial injury extensive enoug h to conform with AM I as defined by WHO. PROCALCITONIN (PCT)2018-12-01 19:36:00 Test Item Value Reference Range Interpretation Comments PROCALCITONIN (PCT) (test code = ng/mL 0.00-0.05 PROCAL) PROTHROMBIN [id number] 19:25:00 Test Item Value Reference Interpretation Comments Range PROTHROMBIN TIME 10.9 SECONDS 9.9-11.6 N PATIENT (test code = PTP) INTERNATIONAL 1.06 0.93-1.2 N Recommended Th erapeutic NORMAL RATIO (test PT Ratios For Oral code = INR) AnticoagualantT herapy. CONDITION INT'L NORMALIZED PT R --------- ------ Prophylaxis of venous thrombosis 2.0 - 3.0in high risk medic al or surgicalpatient s, treatment of venousthrombosi s, prevention of e mbolism. Prevention of r ecurrent embolism, 3.0 - 4.5or treatment of pa tients with mechanical prosthetic heart valves. IS THE PATIENT ON ANY ANTICOAGULANTS? NTHROMBOPLASTIN TIME [id number] 19:25:00 Test Item Value Reference Range Interpretation Comments THROMBOPLASTIN TIME PARTIAL 27.0 SECONDS 23.0-32.0 N (test code = PTT) IS THE PATIENT ON ANY ANTICOAGULANTS? NPOC LACTIC [id number] 19:11:00 Test Item Value Reference Range Interpretation Comments POC LACTIC ACID 2.68 MMOL/L 0.40-2.00 H RESULTS CALL ED TO [] (test code = [place]) [place] [address]/01/18.NMI-MT CRITICA L VALUE READ BA CK BY NURSE AND VERIF IED BY TECH? []REFEREN CE RANGES FOR: 1) ARTERIAL SAMPLE (0.5-1.6MMOL/L) 2) SPINAL FLUID (0.6-2.2MMOL/L) CBC W/AUTO [id number] 19:08:00 Test Item Value Reference Range Interpretation [...]
[2022-05-25 18:36] LABS: Absolute Lymphocytes (CBC) 2.1 K/uL (0.7-4.9); Hematocrit 40.8 % (39.6-49.0); Lymphocytes % 23.7 % (15.3-44.8); MCV 84.7 fL (80-100); MPV 8.6 fL (7.6-11.3); RBC Red Blood Cell Count 4.81 M/uL (4.33-5.43)
[2022-05-25] MEDS ORDERED: ONDANSETRON 4 MG/2 ML VIAL ONE ×2 (18:40→21:09)
[2022-05-25] MEDS ORDERED: MORPHINE 4 MG/ML SYR ONE ×2 (18:40→21:09)
[2022-05-25] MEDS ORDERED: NA CHLORIDE 0.9% 1,000 ML ONE (18:40)
[2022-05-25 19:02] LABS: Bilirubin Total 0.3 mg/dL (0.2-1.0); Protein, Total 7.4 g/dL (6.4-8.2)
[2022-05-25 19:14] LABS: Potassium 3.8 mmol/L (3.5-5.1)
--- NOTE | 2022-05-25 20:13 | RAD REPORT ---
EXAM DESCRIPTION: CT - Abdomen Pelvis W Contrast - 05/25/2022 7:52 pm CLINICAL HISTORY: Abdominal pain COMPARISON: January 2022 TECHNIQUE: Computed axial tomography of the abdomen pelvis was obtained. 100 cc Isovue-300 was admin istered intravenously. Oral contrast was not requested which limits evaluation of bowel and appendix All CT scans are performed using dose optimization technique as appropriate and may include automated exposure control or mA/KV adjustment according to patient size. FINDINGS: Fatty liver. Liver is mildly enlarged. The spleen, pancreas, adrenals and right kidney unremarkable. Small low-density areas present within the periphery of the left kidney. Enhancement of the wall of t he renal pelvis and left ureter present. Stranding is present within the left periureteral fat. There is no evidence of diverticulitis. Normal appendix Tiny umbilical hernia Spondylosis involves the lumbar spine IMPRESSION: Patient most likely has a left pyelonephritis/ureteritis
[2022-05-25 21:13] LABS: Urine Bacteria 20-50 /HPF (<20); Urine RBC <5 /HPF (None Seen)
--- NOTE | 2022-05-25 21:25 | ER ---
Nurse's Notes [facility] Name: Addy Quintana Jr Age: 41 yrs Sex: Male : 1980 Arrival Date: 05/25/2022 Time: 17:25 Bed 13 Private MD: Diagnosis: Pyelonephritis acute Presentation: 05/25 17:43 Chief complaint: Patient states: A couple of months ago I had a kidney infection and I bm7 started having the same pain that I did then yesterday. My lower back is hurting so bad. Coronavirus screen: At this time, the client does not indicate any symptoms associated with coronavirus-19. Ebola Screen: No symptoms or risks identified at this time. Initial Sepsis Screen: Does the patient meet any 2 criteria? No. Patient's initial sepsis screen is negative. Does the patient have a suspected source of infection? No. Patient's initial sepsis screen is negative. Risk Assessment: Do you want to hurt yourself or someone else? Patient reports no desire to harm self or others. Onset of symptoms was May 24, 2022. 17:43 Method Of Arrival: Wheelchair bm7 17:43 Acuity: FLORENCIO 3 bm7 Triage Assessment: 17:45 General: Appears in no apparent distress. uncomfortable, obese, well developed, bm7 Behavior is anxious. Pain: Complains of pain in left low back and right low back Pain does not radiate. EENT: No deficits noted. No signs and/or symptoms were reported regarding the EENT system. Neuro: Level of Consciousness is awake, alert, obeys commands. Cardiovascular: No deficits noted. Respiratory: No deficits noted. GI: Reports nausea, vomiting. : Denies burning with urination, inability to void, incontinence, urinary frequency. Derm: No deficits noted. No signs and/or symptoms reported regarding the dermatologic system. Musculoskeletal: Reports pain in left low back and right low back. Historical: - Allergies: 17:45 VANCOMYCIN AND DERIVATIVES; bm7 - Home Meds: 17:45 metformin 1,000 mg Oral tab 1 tab 2 times per day [Active]; Tresiba FlexTouch U-100 100 bm7 unit/mL (3 mL) subcutaneous inpn [Active]; gabapentin 600 mg oral tab 1 tab 3 times per day [Active]; - PMHx: 17:45 Diabetes - IDDM; Hypercholesterolemia; Hypertension; neuropathy; DVT; bm7 - PSHx: 17:45 Dion knee sx; bm7 - Immunization history:: Adult Immunizations up to date, Client reports receiving the 2nd dose of the Covid vaccine, Client reports receiving the 1st dose of the Covid vaccine. - Social history:: Patient/guardian denies using tobacco products, Smoking status: Patient denies any tobacco usage or history of. Screenin:34 Abuse screen: Denies threats or abuse. Denies injuries from another. Nutritional jg9 screening: No deficits noted. Tuberculosis screening: No symptoms or risk factors identified. Fall Risk None identified. Assessment: 18:30 Reassessment: No changes from previously documented assessment. Patient and/or family jg9 updated on plan of care and expected duration. Pain level reassessed. Patient is alert, oriented x 3, equal unlabored respirations, skin warm/dry/pink. patient remains in pain. Vital Signs: 17:43 BP 156 / 85; Pulse 90; Resp 18; Temp 98.5(TE); Pulse Ox 100% on R/A; Weight 154.22 kg bm7 (R); Height 5 ft. 7 in. (170.18 cm); Pain 10/10; 18:20 BP 114 / 51; Pulse 85; Resp 17 S; Pulse Ox 98% on R/A; Pain 9/10; jg9 22:08 BP 132 / 84; Pulse 79; Resp 17; Pulse Ox 99% on R/A; ja4 17:43 Body Mass Index 53.25 (154.22 kg, 170.18 cm) bm7 ED Course: 17:25 Patient arrived in ED. as 17:45 Triage completed. bm7 17:45 Arm band placed on right wrist. bm7 17:48 Montse Burroughs FNP-C is PHCP. kb 17:48 Perez Singer MD is Attending Physician. kb 18:00 Patient has correct armband on for positive identification. Bed in low position. Call jg9 light in reach. Side rails up X 1. 18:20 Inserted saline lock: 22 gauge in right antecubital area, using aseptic technique. jg9 Blood collected. 18:34 Cherrie Calero, RN is Primary Nurse. jg9 19:31 Primary Nurse role handed off by Cherrie Calero, GÓMEZ ja4 19:31 Hollis Carlisle, RN is Primary Nurse. ja4 19:54 CT Abd/Pelvis - IV Contrast Only In Process Unspecified. EDMS Administered Medications: 18:30 Drug: NS 0.9% 1000 ml Route: IV; Rate: 1 bolus; Site: right antecubital; jg9 19:20 Follow up: IV Status: Completed infusion; IV Intake: 1000ml ja4 18:33 Drug: Zofran (Ondansetron) 4 mg Route: IVP; Site: right antecubital; jg9 19:03 Follow up: Response: No adverse reaction jg9 19:20 Follow up: Response: No adverse reaction; Nausea is decreased ja4 18:35 Drug: morphine 4 mg {Note: RASS-0, 9/10 lower back pain.} Route: IVP; Infused Over: 4 jg9 mins; Site: right antecubital; 19:03 Follow up: Response: No adverse reaction; Pain is decreased j9 19:20 Follow up: Response: No adverse reaction; Marked relief of symptoms; Pain is decreased ja4 21:00 Drug: morphine 4 mg Route: IVP; Infused Over: 4 mins; Site: right antecubital; ja4 21:00 Drug: Zofran (Ondansetron) 4 mg Route: IVP; Site: right antecubital; ja4 Intake: 19:20 IV: 1000ml; Total: 1000ml. ja4 Outcome: 21:25 Discharge ordered by . anders 22:10 Discharged to home ambulatory. ja4 22:10 Condition: stable 22:10 Discharge instructions given to patient, Instructed on discharge instructions, follow up and referral plans. medication usage, Demonstrated understanding of instructions, follow-up care, medications, Prescriptions given X 1. 22:11 Patient left the ED. ja4 Addendum: 05/28/2022 15:21 Addendum: Culture Results: Positive urine culture. Bacteria is resistant to, has s s intermediate sensitivity, or is not tested against prescribed antibiotics. Report given to JULISSA for further evaluation and then to chicken cutter for follow up with patient. Phone call Attempt #1 Spoke with patient who states he has not been able to follow up with PCP because he has been in the ER with his sick mother. Pt verbalizes understanding importance of following up GERSON with PCP or returning to ER for further evaluation and treatment. Signatures: Dispatcher [employer] Montse Krishnan, PHOTOGRAPHIC REPRODUCTION TECHNICIAN-C PHOTOGRAPHIC REPRODUCTION TECHNICIAN-Oumou Reed Shelby, RN RN ss Jackeline Mathias RN RN bm7 Cherrie Calero RN RN jg9 Hollis Carlisle RN RN ja4 Corrections: (The following items were deleted from the chart) 05/25 17:46 17:45 PMHx: Blounts; ar joyner
--- NOTE | 2022-05-25 21:25 | EDPHYS ---
Physician Documentation [facility] Name: Addy Quintana Jr Age: 41 yrs Sex: Male : 1980 Arrival Date: 05/25/2022 Time: 17:25 Bed 13 Private MD: ED Physician Perez Singer HPI: 05/25 18:54 This 41 yrs old Male presents to ER via Wheelchair with complaints of Low Back kb Pain. 18:54 The patient complains of pain in the left flank and right flank. The pain does not kb radiate. Onset: The symptoms/episode began/occurred yesterday. Modifying factors: The symptoms are alleviated by nothing. the symptoms are aggravated by palpation/percussion. Associated signs and symptoms: Pertinent positives: dysuria, Pertinent negatives: diarrhea, dizziness, fever, urinary frequency, headache, hematuria, nausea, pain radiating to the lower extremities, vomiting. Severity of pain: At its worst the pain was moderate in the emergency department the pain is unchanged. The patient has not experienced similar symptoms in the past. The patient has not recently seen a physician. Pt reports bilateral flank pain that started yesterday with slight dysuria. States the pain is similar to previous kidney infection he had a few months ago. Historical: - Allergies: 17:45 VANCOMYCIN AND DERIVATIVES; bm7 - Home Meds: 17:45 metformin 1,000 mg Oral tab 1 tab 2 times per day [Active]; Tresiba FlexTouch U-100 100 bm7 unit/mL (3 mL) subcutaneous inpn [Active]; gabapentin 600 mg oral tab 1 tab 3 times per day [Active]; - PMHx: 17:45 Diabetes - IDDM; Hypercholesterolemia; Hypertension; neuropathy; DVT; bm7 - PSHx: 17:45 Dion knee sx; bm7 - Immunization history:: Adult Immunizations up to date, Client reports receiving the 2nd dose of the Covid vaccine, Client reports receiving the 1st dose of the Covid vaccine. - Social history:: Patient/guardian denies using tobacco products, Smoking status: Patient denies any tobacco usage or history of. ROS: 18:37 Constitutional: Negative for fever, chills, and weight loss. kb 18:37 : Positive for flank pain, burning with urination. 18:37 All other systems are negative. Exam: 18:53 Constitutional: This is a well developed, well nourished patient who is awake, alert, kb and in no acute distress. Head/Face: Normocephalic, atraumatic. ENT: Moist Mucous membranes Cardiovascular: Regular rate and rhythm with a normal S1 and S2. No gallops, murmurs, or rubs. No pulse deficits. Respiratory: Respirations even and unlabored. No increased work of breathing. Talking in full sentences Abdomen/GI: Soft, non-tender. No distention Skin: Warm, dry with normal turgor. Normal color. MS/ Extremity: Pulses equal, no cyanosis. Neurovascular intact. Full, normal range of motion. Neuro: Awake and alert, GCS 15, oriented to person, place, time, and situation. Moves all extremities. Normal gait. Psych: Awake, alert, with orientation to person, place and time. Behavior, mood, and affect are within normal limits. 18:53 Back: CVA tenderness, that is moderate, is noted bilaterally. Vital Signs: 17:43 BP 156 / 85; Pulse 90; Resp 18; Temp 98.5(TE); Pulse Ox 100% on R/A; Weight 154.22 kg bm7 (R); Height 5 ft. 7 in. (170.18 cm); Pain 10/10; 18:20 BP 114 / 51; Pulse 85; Resp 17 S; Pulse Ox 98% on R/A; Pain 9/10; jg9 22:08 BP 132 / 84; Pulse 79; Resp 17; Pulse Ox 99% on R/A; ja4 17:43 Body Mass Index 53.25 (154.22 kg, 170.18 cm) bm7 MDM: 17:48 Patient medically screened. kb 18:53 Data reviewed: vital signs, nurses notes. Data interpreted: Pulse oximetry: on room air kb is 98 %. Interpretation: normal. 21:24 Counseling: I had a detailed discussion with the patient and/or guardian regarding: the kb historical points, exam findings, and any diagnostic results supporting the discharge/admit diagnosis, lab results, radiology results, the need for outpatient follow up, a family practitioner, to return to the emergency department if symptoms worsen or persist or if there are any questions or concerns that arise at home. 05/25 17:49 Order name: Urine Microscopic Only; Complete Time: 21:24 kb 05/25 17:57 Order name: CBC with Diff; Complete Time: 18:44 j9 05/25 17:57 Order name: CMP; Complete Time: 19:20 jg9 05/25 17:57 Order name: Lipase; Complete Time: 19:20 jg9 05/25 17:57 Order name: CT Abd/Pelvis - IV Contrast Only; Complete Time: 20:16 j9 05/25 21:16 Order name: Urine Culture EDWY 05/25 17:57 Order name: IV Saline Lock; Complete Time: 18:35 jg9 05/25 17:57 Order name: Labs collected and sent; Complete Time: 18:35 jg9 Administered Medications: 18:30 Drug: NS 0.9% 1000 ml Route: IV; Rate: 1 bolus; Site: right antecubital; j9 19:20 Follow up: IV Status: Completed infusion; IV Intake: 1000ml ja4 18:33 Drug: Zofran (Ondansetron) 4 mg Route: IVP; Site: right antecubital; j9 19:03 Follow up: Response: No adverse reaction j9 19:20 Follow up: Response: No adverse reaction; Nausea is decreased ja4 18:35 Drug: morphine 4 mg {Note: RASS-0, 9/10 lower back pain.} Route: IVP; Infused Over: 4 jg9 mins; Site: right antecubital; 19:03 Follow up: Response: No adverse reaction; Pain is decreased j9 19:20 Follow up: Response: No adverse reaction; Marked relief of symptoms; Pain is decreased ja4 21:00 Drug: morphine 4 mg Route: IVP; Infused Over: 4 mins; Site: right antecubital; ja4 21:00 Drug: Zofran (Ondansetron) 4 mg Route: IVP; Site: right antecubital; ja4 Disposition Summary: 05/25/22 21:25 Discharge Ordered Location: Home kb Condition: Stable kb Diagnosis - Pyelonephritis acute kb Followup: kb - With: Private Physician - When: 2 - 3 days - Reason: Recheck today's complaints, Continuance of care, Re-evaluation by your physician Followup: kb - With: Emergency Department - When: As needed - Reason: Worsening of condition Discharge Instructions: - Discharge Summary Sheet kb - Pyelonephritis, Adult, [id number] kb Forms: - Medication Reconciliation Form kb - Thank You Letter kb - Antibiotic Education kb - Prescription Opioid Use kb Prescriptions: - cefpodoxime 200 mg Oral Tablet - take 1 tablet by ORAL route every 12 hours for 10 days with food; 20 tablet; kb Refills: 0, Product Selection Permitted Signatures: Dispatcher [employer] EDMS Montse Burroughs, ADONISC HOME COMPANION-Jackeline Duran RN RN bm7 Cherrie Calero RN RN jg9 Hollis Carlisle RN RN ja4 Corrections: (The following items were deleted from the chart) 17:46 17:45 PMHx: Blounts; bm7 bm7 18:54 18:37 : Positive for flank pain, kb kb
[2022-05-26 01:18] VITALS: TEMP 98.5
[2022-05-26 01:24] VITALS: BP 132/84; O2SAT 99
== END 2022-05-25 22:11 | disposition home or self-care (01) ==
LOC: ER 17:24
DX: N10 Acute pyelonephritis (principal); Z88.3 Allergy status to other anti-infective agents; E11.9 Type 2 diabetes mellitus without complications; I10 Essential (primary) hypertension
CPT/HCPCS: 96361; 87088; 85025; 87086; 36415; 81015; 83690; 80053; 74177; 96375; 96374; 99284; Q9967; J7030; J2405 ×2; 87077; 87186

== ENCOUNTER 2022-06-15 22:02 | Inpatient (IN) | payer OTHER ==
--- OUTSIDE RECORDS SUMMARY | 2022-06-15 22:07 | XMS REPORT | Continuity of Care Document ---
:1980 Author Organization [facility] t Address [address] [place] [address] Care Team Providers Name Role Phone Unavailable Unavailable Unavailable Payers Payer Name Policy Type Policy Number Effective Date Expiration Date S ource Problems This patient has no known problems. Allergies, Adverse Reactions, Alerts Allergy Allergy Status Severity Reaction(s) Onset Inactive Treating Comm ents Source Name Type Date Date Clinician No DA Active U 2018-0 [facility] All[facility] 12-01 [place] [facility] 00:00: Region[facility] 00 [facility] vancomyc DA Active SV 2018-0 [facility] in 2-25 [place] 00:00: [address] Medications This patient has no known medications. Procedures This patient has no known procedures. Results Test Description Test Time Test Comments Results Result Comments Source CULTURE, URINE 2022-06-07 SPECIMEN NUMBER: [id number] CULTURE, URINE SPECIMEN NUMBER: [id number] SPECIMEN COMMENT: URINE SOURCE: URINE REPORT STATUS: FINAL FINAL REPORT: 06/07/2022 <10,000 CFU/ML UROGENITAL SHELIA PRESENT NO COMMON PATHOGENS LIPID PANEL 2022-06-06 07:07:13 Test Item Value Reference Range Interpretation Comme nts CHOLESTEROL (test code = 2210) 234 MG/DL <200 H TRIGLYCERIDES (test code = 2232) 370 MG/DL <150 H HDL CHOLESTEROL (test code = 34 MG/DL >39 L 2220) CALC LDL CHOL (test code = 2237) 143 MG/DL <100 H NOTE: CALCULATED LDL IS BASED ON MELODY-MONTESINOS METHOD WHICHINCLUDES A DJUSTABLE TRIGLYCERIDE:VL DL CHOLESTEROL RATIO.THIS FACT OR VARIES BY MEASURED TRIGLY CERIDE AND NON-HDLCHOLESTE ROL CONCENTRATIONS WITH INCREASED CALCULATED LDL SEENIN HIGHER T RIGLYCERIDE OR LOWER NON-HDL S PECIMENS. FOR MOREINFORMATION , SEE CLIENT ANNOUNCEMENT AT [email or web address] RATIO LDL/HDL (test code = 4.21 RATIO <3.55 H 2237) COMPREHENSIVE METABOLIC [id number] 07:07:13 Test Item Value Reference Range Interpretation Comments GLUCOSE (test code = 269 MG/DL 70-99 H 2216) BUN (test code = 24 MG/DL 6-20 H 2207) CREATININE (test 0.59 MG/DL 0.80-1.40 L code = 2214) eGFR (2020 CKD-EPI) 123 >60 (test code = 73620) ML/MIN/1.73 CALC BUN/CREAT (test 41 RATIO 6-28 H code = 2235) SODIUM (test code = 136 MEQ/L 282-991 7420) POTASSIUM (test code 4.8 MEQ/L 3.5-5.4 = 2227) CHLORIDE (test code 100 MEQ/L 95-107 = 2214) CARBON DIOXIDE (test 23 MEQ/L 19-31 code = 2206) CALCIUM (test code = 9.4 MG/DL 8.5-10.5 2208) PROTEIN, TOTAL (test 7.6 G/DL 6.1-8.3 code = 2229) ALBUMIN (test code = 4.0 G/DL 3.5-5.2 2200) CALC GLOBULIN (test 3.6 G/DL 1.9-3.7 code = 2240) CALC A/G RATIO (test 1.1 RATIO 1.0-2.6 code = 2234) BILIRUBIN, TOTAL <0.2 MG/DL See_Comment [Automated message] (test code = 2207) The syste m which generated this result transmit bonilla reference range : <=1.2. The refe rence range was not u sed to interpret th is result as normal/abnormal . ALKALINE PHOSPHATASE 75 U/L 40-119 (test code = 2204) AST (test code = 18 U/L 2217) ALT (test code = 29 U/L 2218) ALBUMIN/CREATININE RATIO, URINE, [id number] 05:00:40 Test Item Value Reference Range Interpretation Comments CREATININE, URINE, 87.3 MG/DL NOT ESTAB CONC. (test code = 2072) ALBUMIN, URINE, 2.1 MG/DL NOT ESTAB RANDOM (test code = 33572) CALC ALBUMIN/CREAT, 24 MG/G <30 Note: RND (test code = Albumin/Cre atinine 52239) ratio reference interval reflec ts ADA and NKF guideli mariela. HEMOGLOBIN [id number] 03:59:22 Test Item Value Reference Range Interpretation Comments HEMOGLOBIN A1c (test 10.5 % 4.2-5.6 H AMERIC AN DIABETES code = 47910) ASSOCIATION IDELINES FOR HGB A1C: PREDIABETES/INC REASED RISK . . . . . . . 5 .7-6.4% DIAGNOSIS OF DI ABETES . . . . . . . . . >=6 .5% WITH CONFIRMATION OR APPROPRIATE SYMPTOMS NOTE: ASSAY MAY BE AFFECTED BY HEMOGLOBINOPATH IES (SICKLE CELL ANEMIA, S- C DISEASE, OTHERS) OR SIMONA FICIALLY LOWERED BY DECR EASED RED CELL SURVIVAL ( HEMOLYTIC ANEMIAS, BLOOD LOSS, ETC.). CONSIDER ALTERN ATE TESTING OR LABORATORY C ONSULTATION. UNLESS OTHERWIS E INDICATED, ALL TESTING PER FORMED ATCLINICAL PATH [facility], [facility]. [address] [place] [address] LABORATORY DIRE CTOR: Nanyc CASTELLANOS. CLIA NUMBER [id number] CAP ACCREDITATION N O. [id number] CBC W/AUTO DIFF WITH [id number] 02:24:38 Test Item Value Reference Range Interpretation Comments WBC (test code = 6.9 K/UL 3.5-11.0 1001) RBC (test code = 5.12 M/UL 4.50-6.10 1002) HEMOGLOBIN (test code 14.9 G/DL 13.5-17.0 = 1003) HEMATOCRIT (test code 43.1 % 40.0-51.0 = 1004) MCV (test code = 84.2 fL 80.0-99.0 1005) MCH (test code = 29.1 PG 25.0-33.0 1006) MCHC (test code = 34.6 G/DL 31.0-36.0 1007) RDW (test code = 13.0 % 11.5-15.0 1038) NEUTROPHILS (test 60.2 % code = 1008) LYMPHOCYTES (test 32.3 % code = 1010) MONOCYTES (test code 5.3 % = 1011) EOSINOPHILS (test 1.2 % code = 1012) BASOPHILS (test code 0.3 % = 1013) IMMATURE GRANULOCYTES 0.7 % (test code = 1036) NUCLEATED RBCS (test 0.0 /100 WBC'S See_Comment [Aut omated code = 1065) message] The sy stem which generated this result transmitted reference range : 0.0. The refere nce range was not u sed to interpret th is result as normal/abnormal . PLATELET COUNT (test 241 K/UL 130-400 code = 1015) ABSOLUTE NEUTROPHILS 4.18 K/UL 1.50-7.50 (test code = 1066) ABSOLUTE LYMPHOCYTES 2.24 K/UL 1.00-4.00 (test code = 1067) ABSOLUTE MONOCYTES 0.37 K/UL 0.20-1.00 (test code = 1068) ABSOLUTE EOSINOPHILS 0.08 K/UL 0.00-0.50 (test code = 1040) ABSOLUTE BASOPHILS 0.02 K/UL 0.00-0.20 (test code = 1069) ABS IMMATURE 0.05 K/UL 0.00-0.10 GRANULOCYTES (test code = 1020) ABS NUCLEATED RBCS 0.00 K/UL 0.00-0.11 (test code = 05408) [id number] 11:29:00 Test Item Value Reference Range Interpretation Comments GLUBED (test code = GLUBED) 202 mg/dL 70-110 H BASIC METABOLIC [id number] 05:36:00 Test Item Value Reference Range Interpretation [...] code = 8.2 mg/dL 7.8-10.9 N CA) [id number] 05:01:00 Test Item Value Reference Range Interpretation Comments GLUBED (test code = GLUBED) 185 mg/dL 70-110 H CBC W/AUTO [id number] 04:37:00 Test Item Value Reference Range Interpretation [...] code = 0.00 K/mm3 0.00-0.20 N NRBC#) [id number] 20:40:00 Test Item Value Reference Range Interpretation Comments GLUBED (test code = GLUBED) 256 mg/dL 70-110 H [id number] 17:24:00 Test Item Value Reference Range Interpretation Comments GLUBED (test code = GLUBED) 244 mg/dL 70-110 H [id number] 11:31:00 Test Item Value Reference Range Interpretation Comments GLUBED (test code = GLUBED) 272 mg/dL 70-110 H - DUP LE ART [id number] 09:44:00 [employer]: [address]: [facility]: [facility] 1980 Age/S: 37/M [address] Unit #: [id number] Loc: [address] [place], [place] [address] Phys: Keny Duran MD Acct: [id number] Dis Date: Status: ADM IN PHONE #: [phone] Exam Date: 12/02/2018 033 FAX #: [phone] Reason: diabetic ulcers EXAMS: CPT CODE: [id number] DUP LE ART ARAVIND [address] HISTORY: Ulcers TECHNIQUE: Grayscale B-mode, color-flow, and spectral Doppler analysis of the lower extremity arterial vasculature was performed. COMPARISON: None available time of interpretation. [...] Facility ACR Accreditation for Ultrasound - November 2011CC: Keny Duran MD; Sunday Mendoza NP Technologist: SANDY CASTRO RDMS Transcribed Date/Time/By: 12/02/2018 (0944) : By: [email or web address] Orig Print D/T: S: 12/02/2018 (8336) PAGE 1 Signed ReportCOMPREHENSIVE METABOLIC [id number] 06:17:00 Test Item Value Reference Range Interpretation [...] 45-117 N TOTAL (test code = ALKP) [id number] 06:17:00 Test Item Value Reference Range Interpretation Comments MAGNESIUM (test code = MAG) 2.0 mg/dL 1.5-2.1 N COMPREHENSIVE METABOLIC [id number] 06:10:00 Test Item Value Reference Range Interpretation [...] TOTAL (test U/L 45-117 code = ALKP) [id number] 06:10:00 Test Item Value Reference Range Interpretation Comments MAGNESIUM (test code = MAG) mg/dL 1.5-2.1 - CT CHEST W/O [id number] 05:51:00 [employer]: [address]: [facility]: [facility] 1980 Age/S: 37/M [address] [facility] Unit #: [id number] Loc: [address] [place], [place] [address] Phys: Keny Duran MD Acct: [id number] Dis Date: Status: ADM IN PHONE #: [phone] Exam Date: 12/01/2018 0589 FAX #: [phone] Reason: PNA CTDI: DLP: Automated exposure control, iterative reconstruction technique, and/oradjustment of mA and/or kV according to patient's size was utilized fooptimum radiation dose reduction. EXAMS:CPT CODE: [id number] CT CHEST W/O CONTRAST [address] HISTORY: Pneumonia TECHNIQUE: Axial tomograms through the [...] RT(R)(CT) Transcribed Date/Time/By: 12/02/2018 (0551) : By: [email or web address] Orig Print D/T: S: 12/02/2018 (0548) PAGE 1 Signed ReportCBC W/AUTO [id number] 05:44:00 Test Item Value Reference Range Interpretation [...] code = 0.00 K/mm3 0.00-0.20 N NRBC#) [id number] 05:10:00 Test Item Value Reference Range Interpretation Comments GLUBED (test code = GLUBED) 201 mg/dL 70-110 H - DUP VEIN [id number] 04:37:00 [employer]: [facility] St: [facility]: [facility] 1980 Age/S: 37/M [address] Unit #: [id number] Loc: [address] [place], [place] [address] Phys: Keny Duran MD Acct: [id number] Dis Date: Status: ADM IN PHONE #: [phone] Exam Date: 12/02/2018237 FAX #: [phone] Reason: BLE SWELLING EXAMS: CPT CODE: [id number] DUP VEIN ARAVIND [address] HISTORY: Bilateral swelling TECHNIQUE: Grayscale real-time B-mode [...] Mendoza NP Technologist: SANDY CASTRO RDMS Transcribed Date/T liza/By: 12/02/2018 (0437) : By: [email or web address] Orig Print D/T: S: 12/02/2018 (0441) PAGE 1 Signed Report- XR FOOT 2 VIEWS [id number] 00:17:00 FAX: Keny Leonard MD Camps: ER St: ADM FAX: Sunday Mendoza NP [phone] Name[facility] : 1980 Age/S: 37/M [address] [facility] Unit #: [id number] Loc: [address] [address] Phys: Keny Duran MD Acct: [id number] Dis Date: Status: ADM IN PHONE #: [phone] Exam Date: 12/01/2018 2304 FAX #: [phone] Reason: GREAT TOE ULCER EXAMS: CPT CODE: [id number] XR FOOT [address] [place] [address] LOCATION: V20 EXAM: - XR FOOT 2 VIEWS LT, - XR FOOT 2 VIEWS RT HISTORY: GREAT TOE ULCER TECHNIQUE: Frontal and lateral views of the bilateral foot COMPARISON: None. FINDINGS:No evidence of acute fracture or dislocation. Joint [...] 1 Signed Report- XR FOOT 2 VIEWS [id number] 00:17:00 FAX: Keny Leonard MD Camps: ER St: ADM FAX: Sunday Mendoza NP [phone] Name: [facility] : 1980 Age/S: 37/M [address] [facility] Unit #: [id number] Loc: [address] [place] [address] Phys: Keny Duran MD Acct: [id number] Dis Date: Status: ADM IN PHONE #: [phone] Exam Date: 12/01/2018 2304 FAX #: [phone] Reason: GREAT TOE ULCER EXAMS: CPT CODE: [id number] XR FOOT [address] [place] [address] LOCATION: V20 EXAM: - XR FOOT 2 VIEWS LT, - XR FOOT 2 VIEWS RT HISTORY:GREAT TOE ULCER TECHNIQUE: Frontal and lateral views of the bilateral foot COMPARISON: None. FINDINGS: No evidence of acute fracture or dislocation. Joint spaces within normal limits. Mild dorsal softtissue swelling is present along the left distal [...] and signed by: DONTRELL DSOUZA M.D. CC: Filiberto Duran MD; Sunday Mendoza NP Technologist: JAILENE [...] H code = GLYHGB) MEAN BLOOD GLUCOSE [id number] 22:46:00 Test Item Value Reference Range Interpretation Comments MEAN BLOOD GLUCOSE CALCULATION (test 228.8 code = MBGCALC) URINALYSIS W/O [id number] 21:41:00 Test Item Value Reference Range Interpretation [...] code = LEUU) SOURCE: URINESPECIMEN DESCRIPTION: [facility] [id number] 21:41:00 Test Item Value Reference Range Interpretation Comments UA WBC (test code = WBCU) 2-5 0-5 UA RBC (test code = RBCU) 0-2 0-5 UA SQUAMOUS CELLS (test code = 5-10 #/lpf NONE SEEN SQU) SOURCE: URINESPECIMEN DESCRIPTION: CMCURINALYSIS W/O [id number] 21:04:00 Test Item Value Reference Range Interpretation [...] (test code = LEUU) SOURCE: URINESPECIMEN DESCRIPTION: [facility] [id number] 21:04:00 Test Item Value Reference Range Interpretation Comments UA WBC (test code = WBCU) 0-5 UA RBC (test code = RBCU) 0-5 SOURCE: URINESPECIMEN DESCRIPTION: CMCURINALYSIS W/O [id number] 21:04:00 Test Item Value Reference Range Interpretation [...] code = LEUU) SOURCE: URINESPECIMEN DESCRIPTION: [facility] [place] [id number] 21:04:00 Test Item Value Reference Range Interpretation Comments UA WBC (test code = WBCU) 0-5 UA RBC (test code = RBCU) 0-5 SOURCE: URINESPECIMEN DESCRIPTION: [facility] [id number] 20:50:00 Test Item Value Reference Range Interpretation Comments POC LACTIC ACID (test code = 1.61 MMOL/L 0.40-2.00 N POCLAC) - XR CHEST 1 [id number] 20:42:00 FAX: Xavier Maguire [phone] Camps: ER St: REG Name: [facility] : 1980 Age/S: 37/M [address] Unit #: [id number] Loc: [place], [place] [address] Phys: Xavier Maguire MD Acct: [id number] Dis Date: Status: REG ER PHONE #: [phone] Exam Date: 12/01/20182039 FAX #: [phone] Reason: code sepsis EXAMS: CPT CODE: [id number] XR CHEST 1 V [address] LOCATION: V20 EXAM: - XR CHEST 1 [...] 2041 Reported and signed by: DONTRELL DSOUZA M.D. CC: Xavier Maguire MD Technologist: Keerthi Peraza RT(R)CT(ARRT) Transcribed Date/Time/By: 12/01/2018 (2041) :[email or web address] Orig Print D/T: S: 12/01/2018 (2044) Automated exposure control, iterative reconstruction technique, and/oradjustment of mA and/or kV according to patient's size was utilizedfor optimum radiation dose reduction. PAGE 1 Signed ReportHEPATIC FUNCTION [id number] 19:50:00 Test Item Value Reference Range Interpretation [...] 45-117 N TOTAL (test code = ALKP) [id number] 19:50:00 Test Item Value Reference Range Interpretation Comments LIPASE (test code = 120 U/L 73-393 N Reportin g units: LIP) International U nits/L NT PRO-BRAIN NATRIURETIC [id number] 19:50:00 Test Item Value Reference Range Interpretation Comments NT PRO-BRAIN NATRIURETIC PEPTI (test 18 pg/mL 0-125 N code = PROBNP) [id number] 19:50:00 Test Item Value Reference Range Interpretation [...] 0.05 ng/mL 0.00-0.05 N PROCAL) CHEMISTRY 8 [id number] 19:36:00 Test Item Value Reference Range Interpretation [...] 0.7 MG/DL 0.6-1.0 N CREATBED) HEPATIC FUNCTION [id number] 19:36:00 Test Item Value Reference Range Interpretation [...] 45-117 N TOTAL (test code = ALKP) [id number] 19:36:00 Test Item Value Reference Range Interpretation Comments LIPASE (test code = 120 U/L 73-393 N Reportin g units: LIP) International U nits/L NT PRO-BRAIN NATRIURETIC [id number] 19:36:00 Test Item Value Reference Range Interpretation Comments NT PRO-BRAIN NATRIURETIC PEPTI (test 18 pg/mL 0-125 N code = PROBNP) [id number] 19:36:00 Test Item Value Reference Range Interpretation [...] (test code = ng/mL 0.00-0.05 PROCAL) PROTHROMBIN [id number] 19:25:00 Test Item Value Reference Interpretation Comments [...] THE PATIENT ON ANY ANTICOAGULANTS? NTHROMBOPLASTIN TIME [id number] 19:25:00 Test Item Value Reference Range Interpretation Comments THROMBOPLASTIN TIME PARTIAL 27.0 SECONDS 23.0-32.0 N (test code = PTT) IS THE PATIENT ON ANY ANTICOAGULANTS? NPOC LACTIC [id number] 19:11:00 Test Item Value Reference Range Interpretation Comments POC LACTIC ACID 2.68 MMOL/L 0.40-2.00 H RESULTS CALL ED TO [] (test code = POCLAC) [place] [address]/01/18.NMI-MT CRITICA L VALUE READ BA CK BY NURSE AND VERIF IED BY TECH? []REFEREN CE RANGES FOR: 1) ARTERIAL SAMPLE (0.5-1.6MMOL/L) 2) SPINAL FLUID (0.6-2.2MMOL/L) CBC W/AUTO [id number] 19:08:00 Test Item Value Reference Range Interpretation [...]
[2022-06-15 23:32] LABS: Urine Blood 1+ (Negative); Urine Glucose Negative (Negative); Urine Protein Trace (Negative)
[2022-06-15] MEDS ORDERED: HYDROMORPHONE HCL 1 MG/ML INJ ONE (23:43)
[2022-06-15] MEDS ORDERED: PROMETHAZINE 25 MG TABLET ONE (23:44)
[2022-06-15 23:46] LABS: Absolute Lymphocytes (CBC) 1.5 K/uL (0.7-4.9); Hematocrit 39.8 % (39.6-49.0); Lymphocytes % 16.9 % (15.3-44.8); MPV 8.2 fL (7.6-11.3); RBC Red Blood Cell Count 4.74 M/uL (4.33-5.43)
[2022-06-16 00:02] LABS: Albumin 3.3 g/dL (3.4-5.0); Bilirubin Total 0.6 mg/dL (0.2-1.0); Potassium 3.8 mmol/L (3.5-5.1); Protein, Total 7.7 g/dL (6.4-8.2)
[2022-06-16] MEDS ORDERED: PIPERACIL/TAZO 3.375 GM VIAL IV ONE (00:03)
[2022-06-16] MEDS ORDERED: NA CHLORIDE 0.9% 100 ML ONE (00:03)
[2022-06-16] MEDS ORDERED: PIPERACIL/TAZO 4.5 GM VIAL IV ONE (00:05)
--- NOTE | 2022-06-16 01:43 | ER ---
Nurse's Notes [facility] Name: Addy Quintana Jr Age: 41 yrs Sex: Male : 1980 Arrival Date: 06/15/2022 Time: 22:06 Bed 14 Private MD: Diagnosis: Pyelonephritis acute-previous cultures resistant to oral antibiotics Presentation: 06/15 22:12 Chief complaint: Patient states: My lower back is hurting so bad and I have a really bm7 bad headache. I have been taking tylenol and motrin and it hasn't helped at all. Coronavirus screen: At this time, the client does not indicate any symptoms associated with coronavirus-19. Ebola Screen: No symptoms or risks identified at this time. Initial Sepsis Screen: Does the patient meet any 2 criteria? No. Patient's initial sepsis screen is negative. Does the patient have a suspected source of infection? No. Patient's initial sepsis screen is negative. Risk Assessment: Do you want to hurt yourself or someone else? Patient reports no desire to harm self or others. Onset of symptoms is unknown. 22:12 Method Of Arrival: Wheelchair [facility] 22:12 Acuity: FLORENCIO 3 bm7 Triage Assessment: 22:13 Headache History: Denies prior headaches. General: Appears distressed, uncomfortable, bm7 obese, unkempt, Behavior is anxious, restless. Pain: Complains of pain in lumbar area, left low back and right low back Pain does not radiate. Pain currently is 10 out of 10 on a pain scale. Quality of pain is described as aching, Pain began gradually, Is continuous, Also complains of nausea. EENT: No deficits noted. No signs and/or symptoms were reported regarding the EENT system. Neuro: No deficits noted. Cardiovascular: No deficits noted. Respiratory: No deficits noted. GI: Abdomen is round obese, Pt is actively vomiting bile, Reports nausea, vomiting. : No deficits noted. No signs and/or symptoms were reported regarding the genitourinary system. Derm: No deficits noted. No signs and/or symptoms reported regarding the dermatologic system. Musculoskeletal: Reports pain in back. Historical: - Allergies: 22:13 VANCOMYCIN AND DERIVATIVES; bm7 - Home Meds: 22:13 gabapentin 600 mg Oral tab 1 tab 3 times per day [Active]; metformin 1,000 mg Oral tab bm7 1 tab 2 times per day [Active]; Tresiba FlexTouch U-100 100 unit/mL (3 mL) subcutaneous inpn [Active]; - PMHx: 22:13 Diabetes - IDDM; DVT; Hypercholesterolemia; Hypertension; neuropathy; bm7 - PSHx: 22:13 Dion knee sx; bm7 - Immunization history:: Adult Immunizations up to date, Client reports receiving the 2nd dose of the Covid vaccine, Client reports receiving the 1st dose of the Covid vaccine. - Social history:: Smoking status: Patient denies any tobacco usage or history of. Screenin:27 Abuse screen: Denies threats or abuse. Nutritional screening: No deficits noted. ja4 Tuberculosis screening: No symptoms or risk factors identified. Assessment: 23:27 General: Appears distressed, uncomfortable, obese, Behavior is cooperative, appropriate ja4 for age, anxious. Pain: Complains of pain in back Pain currently is 10 out of 10 on a pain scale. Respiratory: No deficits noted. : Reports pain in lower back. 06/16 02:37 Reassessment: attempted report. no answer. will try again. ja4 Vital Signs: 06/15 22:16 BP 172 / 81; Pulse 82; Resp 20; Temp 98.0(TE); Pulse Ox 98% on R/A; Weight 155.13 kg bm7 (R); Height 5 ft. 7 in. (170.18 cm); Pain 10/10; 22:16 Body Mass Index 53.56 (155.13 kg, 170.18 cm) bm7 ED Course: 22:06 Patient arrived in ED. jj6 22:13 Triage completed. bm7 22:13 Arm band placed on right wrist. bm7 22:21 Fela Moser FNP-C is PHCP. snw 22:21 Pelon Ram MD is Attending Physician. snw 23:27 Hollis Carlisle, GÓMEZ is Primary Nurse. ja4 23:27 Bed in low position. Call light in reach. Side rails up X 1. ja4 23:27 No provider procedures requiring assistance completed. Inserted saline lock: 20 gauge [facility] in left hand, using aseptic technique. 23:35 Urine Culture Sent. 5 23:35 CBC with Diff Sent. 5 23:35 CMP Sent. mh5 06/16 00:41 CT Stone Protocol In Process Unspecified. EDMS 01:41 Miles Hadley MD is Hospitalizing Provider. snw 03:51 Report given to floor nurse. ja4 Administered Medications: 06/15 23:34 Drug: Phenergan (promethazine) 25 mg Route: PO; 4 23:35 Drug: Dilaudid (HYDROmorphone) 1 mg Route: IM; Site: Other; ja4 06/16 00:26 Drug: Zosyn (piperacillin-tazobactam) 4.5 grams Route: IVPB; Infused Over: 60 mins; ja4 Site: left hand; Medication: 06/15 23:27 VIS not applicable for this client. ja4 Outcome: 06/16 01:42 Decision to Hospitalize by Provider. snw 03:52 Admitted to Med/surg via stretcher, with oxygen. ja4 04:18 Patient left the ED. [facility] Signatures: Dispatcher [employer] EDTX Fela Moser, NETWORKING TECHNICIAN-C NETWORKING TECHNICIAN-Norma Sandoval 5 Jackeline Mathias, RN RN 7 Cherrie Cabrera6 Hollis Carlisle, RN RN 4
--- NOTE | 2022-06-16 01:43 | EDPHYS ---
Physician Documentation [facility] Name: Addy Quintana Jr Age: 41 yrs Sex: Male : 1980 Arrival Date: 06/15/2022 Time: 22:06 Bed 14 Private MD: ED Physician Pelon Ram HPI: 06/16 01:38 This 41 yrs old Male presents to ER via Wheelchair with complaints of Low Back snw Pain, Headache, Nausea. 01:38 The patient presents with pain that is acute, with no known mechanism of injury. The snw symptoms are located in the low back, bilateral flank. The problem was sustained pt has been diagnoses with pyelo on last two visits over the past month. Cultures have shown high bacterial resistance.. Onset: The symptoms/episode began/occurred gradually, 1 month(s) ago, and became worse 3 day(s) ago. Associated signs and symptoms: Pertinent positives: headache, back pain. Severity of symptoms: At their worst the symptoms were moderate. The patient has experienced similar episodes in the past. The patient has been recently seen by a physician: with similar presenting complaints. Historical: - Allergies: 06/15 22:13 VANCOMYCIN AND DERIVATIVES; bm7 - Home Meds: 22:13 gabapentin 600 mg Oral tab 1 tab 3 times per day [Active]; metformin 1,000 mg Oral tab bm7 1 tab 2 times per day [Active]; Tresiba FlexTouch U-100 100 unit/mL (3 mL) subcutaneous inpn [Active]; - PMHx: 22:13 Diabetes - IDDM; DVT; Hypercholesterolemia; Hypertension; neuropathy; bm7 - PSHx: 22:13 Dion knee sx; bm7 - Immunization history:: Adult Immunizations up to date, Client reports receiving the 2nd dose of the Covid vaccine, Client reports receiving the 1st dose of the Covid vaccine. - Social history:: Smoking status: Patient denies any tobacco usage or history of. ROS: 06/16 01:36 Constitutional: Negative for fever, chills, and weight loss. snw 01:37 Eyes: Negative for injury, pain, redness, and discharge, ENT: Negative for injury, snw pain, and discharge, Neck: Negative for injury, pain, and swelling, Cardiovascular: Negative for chest pain, palpitations, and edema, Respiratory: Negative for shortness of breath, cough, wheezing, and pleuritic chest pain, Abdomen/GI: Negative for abdominal pain, nausea, vomiting, diarrhea, and constipation. 01:37 MS/Extremity: Negative for injury and deformity, Skin: Negative for injury, rash, and discoloration. 01:37 Constitutional: Positive for body aches, malaise, poor PO intake. 01:37 Back: Positive for flank pain, bilaterally. 01:37 Neuro: Positive for headache. Exam: 01:35 Head/Face: Normocephalic, atraumatic. Eyes: Pupils equal round and reactive to light, snw extra-ocular motions intact. Lids and lashes normal. Conjunctiva and sclera are non-icteric and not injected. Cornea within normal limits. Periorbital areas with no swelling, redness, or edema. ENT: Nares patent. No nasal discharge, no septal abnormalities noted. Tympanic membranes are normal and external auditory canals are clear. Oropharynx with no redness, swelling, or masses, exudates, or evidence of obstruction, uvula midline. Mucous membranes moist. Neck: Trachea midline, no thyromegaly or masses palpated, and no cervical lymphadenopathy. Supple, full range of motion without nuchal rigidity, or vertebral point tenderness. No Meningismus. Chest/axilla: Normal chest wall appearance and motion. Nontender with no deformity. No lesions are appreciated. Cardiovascular: Regular rate and rhythm with a normal S1 and S2. No gallops, murmurs, or rubs. Normal PMI, no JVD. No pulse deficits. 01:35 Skin: Warm, dry with normal turgor. Normal color with no rashes, no lesions, and no evidence of cellulitis. MS/ Extremity: Pulses equal, no cyanosis. Neurovascular intact. Full, normal range of motion. Neuro: Awake and alert, GCS 15, oriented to person, place, time, and situation. Cranial nerves II-XII grossly intact. Motor strength 5/5 in all extremities. Sensory grossly intact. Cerebellar exam normal. Normal gait. 01:35 Constitutional: The patient appears alert, anxious, obese, uncomfortable. 01:35 Respiratory: the patient does not display signs of respiratory distress, Respirations: shallow respirations, Breath sounds: are clear throughout. 01:35 Abdomen/GI: Inspection: obese Bowel sounds: normal, Palpation: mild abdominal tenderness, in all quadrants. 01:35 Back: CVA tenderness, that is mild, that is moderate, is noted bilaterally. Vital Signs: 06/15 22:16 BP 172 / 81; Pulse 82; Resp 20; Temp 98.0(TE); Pulse Ox 98% on R/A; Weight 155.13 kg bm7 (R); Height 5 ft. 7 in. (170.18 cm); Pain 10/; 22:16 Body Mass Index 53.56 (155.13 kg, 170.18 cm) bm7 MDM: 23:28 Patient medically screened. snw 06/16 01:40 Data reviewed: vital signs, nurses notes. Data interpreted: Pulse oximetry: on room air snw is 98 %. Interpretation: normal. Counseling: I had a detailed discussion with the patient and/or guardian regarding: the historical points, exam findings, and any diagnostic results supporting the discharge/admit diagnosis, the presence of at least one elevated blood pressure reading (>120/80) during this emergency department visit, lab results, radiology results, the need for outpatient follow up, the need for further work-up and treatment in the hospital. Response to treatment: the patient's symptoms have markedly improved after treatment. Physician consultation: Yareli NORRIS was contacted at 01:25, regarding admission, to the medical/surgical unit. would like admission per Dr. Miles Hadley MD. 06/15 22:26 Order name: Urine Culture [facility] 06/15 23:31 Order name: CBC with Diff; Complete Time: 23:49 snw 06/15 22:26 Order name: CT Stone Protocol [facility] 06/15 23:31 Order name: CMP; Complete Time: 00:05 snw 06/15 23:32 Order name: Urine Dipstick-Ancillary; Complete Time: 23:34 EDMS 06/16 01:37 Order name: SARS RAPID; Complete Time: 03:00 snw Administered Medications: 06/15 23:34 Drug: Phenergan (promethazine) 25 mg Route: PO; ja 23:35 Drug: Dilaudid (HYDROmorphone) 1 mg Route: IM; Site: Other; ja4 06/16 00:26 Drug: Zosyn (piperacillin-tazobactam) 4.5 grams Route: IVPB; Infused Over: 60 mins; ja4 Site: left hand; Disposition: 06:08 Co-signature as Attending Physician, Pelon Ram MD. rn Disposition Summary: 06/16/22 01:42 Hospitalization Ordered Hospitalization Status: Inpatient Admission snw Provider: Miles Hadley snw Location: Telemetry/MedSur (Inpatient) snw Condition: Stable snw Problem: an acute exacerbation snw Symptoms: have worsened snw Bed/Room Type: Standard snw Room Assignment: [id number](06/16/22 02:17) mw Diagnosis - Pyelonephritis acute - previous cultures resistant to oral antibiotics snw Forms: - Medication Reconciliation Form snw - SBAR form snw Signatures: Dispatcher [employer] EDMS Tiffanie Ro RN RN Fela Rivas, SUBSTATION DESIGN DRAFTSPERSON-C SUBSTATION DESIGN DRAFTSPERSON-Csnw Pelon Ram MD MD rn McCarthy, Brittany, RN RN neil7 Yareli Sullivan PA PA sb3 Hollis Carlisle, RN RN [id number] Corrections: (The following items were deleted from the chart) 02:17 01:42 snw mw
[2022-06-16 02:17] LABS: SARS-CoV-2 Antigen Rapid Res Negative (Negative)
--- NOTE | 2022-06-16 02:29 | P.HP ---
Certification for Inpatient Patient admitted to: Inpatient With expected LOS: >2 Midnights Patient will require the following post-hospital care: None Practitioner: I am a practitioner with admitting privileges, knowledge of patient current condition, hospital course, and medical plan of care. Services: Services provided to patient in accordance with Admission requirements found in Title 42 Section 412.3 of the Code of Federal Regulations Patient History Date of Service: 06/16/22 Reason for admission: Pyelonephritis History of Present Illness: Patient is a 41 year-old male with history of insulin dependent type 2 diabetes, morbid obesity, recurrent resistant UTIs, and hypertension who presented to the ED with complaints of back pain. VSS. Urine positive for UTI. CT showed "mild perinephric stranding and minimal fullness of the renal collecting systems bilaterally, righter greater than left. No calculi. This appearance is nonspecific and may in part be related to physiologic fullness." Recent urine culture grew ESBL ecoli with sensitivity only to meropenem and zosyn. He was started on zosyn and is admitted for further management. Allergies vancomycin Allergy (Severe, Verified 01/17/22 21:44) Hives/Rash Home Medications: Gabapentin 600 mg PO BID 05/25/20 Metformin HCl 1,000 mg PO BID 05/25/20 Insulin Degludec [Tresiba Flextouch U-100] 20 unit SQ SEECOM 09/04/21 Insulin Degludec [Tresiba Flextouch U-100] 32 unit SQ SEECOM 09/04/21 Acetaminophen [Tylenol Extra Strength] 3 tab PO BID 10/23/21 - Past Medical/Surgical History Diabetic: Yes -: Diabetes -: diabetic ulcers -: neuropathy -: sleep apnea -: DVT R leg -: vericose veins -: lymphedema -: rhabdomyolysis -: HTN -: jarvis lower leg surgery: broke and straightened -: debridement bilat great toes -: BLE vein surgery -: tonsillectomy Psychosocial/ Personal History: Patient lives at home. - Family History Father -: Diabetes Mother -: Diabetes - Social History Smoking Status: Current some day smoker Alcohol use: No CD- Drugs: No Caffeine use: Yes Review of Systems General: Other (Headache) Gastrointestinal: Nausea Genitourinary: Other (Back/Flank pain ) Physical Examination - Physical Exam General: Alert, In no apparent distress, Obese HEENT: Atraumatic, PERRLA, Mucous membr. moist/pink, EOMI, Sclerae nonicteric Neck: Supple, 2+ carotid pulse no bruit, No LAD, Without JVD or thyroid abnormality Respiratory: Clear to auscultation bilaterally, Normal air movement Cardiovascular: Regular rate/rhythm, Normal S1 S2 Gastrointestinal: Normal bowel sounds, No tenderness Musculoskeletal: No tenderness Integumentary: No rashes Neurological: Normal speech, Normal strength at 5/5 x4 extr, Normal tone, Normal affect - Studies Laboratory Data (last 24 hrs) 06/15/22 23:36: Sodium 137, Potassium 3.8, BUN 18, Creatinine 0.87, Glucose 175 H, Total Bilirubin 0.6, AST 11 L, ALT 30, Alkaline Phosphatase 71 06/15/22 23:36: WBC 9.00, Hgb 13.6, Hct 39.8, Plt Count 180 Assessment and Plan - Problems (Diagnosis) (1) Pyelonephritis Current Visit: Yes Status: Acute (2) Diabetes mellitus Current Visit: Yes Status: Chronic Qualifiers: Diabetes mellitus type: type 2 Diabetes mellitus [facility] insulin use: with watermaster use Diabetes mellitus complication status: with hyperglycemia Qualified Code(s): E11.65 - Type 2 diabetes mellitus with hyperglycemia; Z79.4 - watermaster (current) use of insulin (3) Morbid obesity Current Visit: Yes Status: Chronic (4) Hypertension Current Visit: Yes Status: Chronic Qualifiers: Hypertension type: primary hypertension Qualified Code(s): I10 - Essential (primary) hypertension - Plan -Continue zosyn. Follow urine culture -IV hydration -Hydralazine PRN BP spikes -Pain management as needed -ACHS accu checks with mild SS insulin and diabetic diet -Monitor and replete electrolytes per protocol -Reconcile and continue home medications -Lovenox for VTE ppx -Full code Discharge Plan: Home Plan to discharge in: Greater than 2 days - Advance Directives Does patient have a Living Will: No Does patient have a Durable POA for Healthcare: No - Code Status/Comfort Care Code Status Assessed: Yes (Full) Critical Care: No Time Spent Managing Pts Care (In Minutes): 50
[2022-06-16] MEDS ORDERED: HYDRALAZINE HCL 20 MG/ML VIAL IV PRN (02:43)
[2022-06-16] MEDS: HYDROMORPHONE HCL 1 MG/ML INJ IV PRN ×4 (02:53→16:48)
[2022-06-16] MEDS: NA CHLORIDE 0.9% 1,000 ML IV SCH ×3 (02:53→23:00)
[2022-06-16] MEDS: ONDANSETRON 4 MG/2 ML VIAL IV PRN ×3 (02:54→14:36)
[2022-06-16 05:01] VITALS: BMI 54.3
[2022-06-16] MEDS ORDERED: POTASSIUM CL SA 10 MEQ TAB PO ONE (08:15)
[2022-06-16] MEDS ORDERED: PIPER TAZO 3.375 GM in NA CHLORIDE 0.9% 100 ML IV SCH (09:00)
[2022-06-16] MEDS: ENOXAPARIN 40 MG/0.4 ML SQ SCH (09:02)
[2022-06-16] MEDS: INSULIN -REGULAR HUMAN 50 UNIT/0.5 ML ML SQ SCH ×4 (09:03→20:34)
[2022-06-16] MEDS ORDERED: AMLODIPINE 5 MG TAB PO ONE (12:00)
[2022-06-16] MEDS: Meropenem 1,000 MG in NA CHLORIDE 0.9% 100 ML IV SCH ×2 (12:13→20:30)
[2022-06-16] MEDS: HOME MED 1 EA UNK (Insulin Degludec [Tresiba Flextouch U-100] 100 UNIT/ML Insuln.Pen) SQ SCH (16:52)
[2022-06-16] MEDS: METFORMIN HCL 500 MG TAB PO SCH (17:11)
--- NOTE | 2022-06-16 18:12 | RAD REPORT ---
EXAM DESCRIPTION: RAD - Chest Single View - 06/16/2022 5:01 pm CLINICAL HISTORY: PICC line placement COMPARISON: Chest Single View dated 01/16/2022; Chest Single View dated 10/12/2021; Chest Single View d ated 10/09/2021; Chest Single View dated 09/08/2021 FINDINGS: Lines: Left subclavian approach PICC with tip overlying the SVC in satisfactory position. Lungs: No evidence of edema or pneumonia. Pleural: No significant pleural effusions or pneumothorax. Cardiac: The heart size is within normal limits. Mediastinum: Within normal limits. Bones: No acute fractures. Other: None IMPRESSION: No acute cardiopulmonary disease. PICC in satisfactory position.
[2022-06-16] MEDS: GABAPENTIN 300 MG CAP PO SCH (20:33)
[2022-06-16] MEDS: allopurinoL 300 MG TAB PO SCH (20:33)
[2022-06-17] MEDS: HYDROMORPHONE HCL 1 MG/ML INJ IV PRN ×5 (02:00→19:00)
[2022-06-17] MEDS: Meropenem 1,000 MG in NA CHLORIDE 0.9% 100 ML IV SCH ×3 (03:28→21:56)
[2022-06-17 04:39] LABS: Absolute Lymphocytes (CBC) 1.2 K/uL (0.7-4.9); Hematocrit 34.4 % (39.6-49.0); Lymphocytes % 13.2 % (15.3-44.8); MCV 84.1 fL (80-100)
[2022-06-17 04:58] LABS: Potassium 3.4 mmol/L (3.5-5.1)
[2022-06-17 05:27] LABS: Magnesium 1.3 mg/dL (1.8-2.4)
[2022-06-17] MEDS ORDERED: Magnesium Sulfate 2gm IVPB 2 G/50 ML BAG IV ONE (05:29)
[2022-06-17] MEDS ORDERED: POTASSIUM CL SA 10 MEQ TAB PO ONE (05:30)
[2022-06-17] MEDS: ONDANSETRON 4 MG/2 ML VIAL IV PRN ×4 (05:57→19:00)
[2022-06-17] MEDS: NA CHLORIDE 0.9% 1,000 ML IV SCH (09:00)
[2022-06-17] MEDS: ENOXAPARIN 40 MG/0.4 ML SQ SCH (09:45)
[2022-06-17] MEDS: AMLODIPINE 10 MG TAB PO SCH (09:45)
[2022-06-17] MEDS: GABAPENTIN 300 MG CAP PO SCH ×2 (09:46→21:58)
[2022-06-17] MEDS: METFORMIN HCL 500 MG TAB PO SCH ×2 (09:46→16:40)
[2022-06-17] MEDS: INSULIN -REGULAR HUMAN 50 UNIT/0.5 ML ML SQ SCH ×4 (09:46→21:58)
[2022-06-17 10:50] LABS: Magnesium 1.9 mg/dL (1.8-2.4); Potassium 4.1 mmol/L (3.5-5.1)
[2022-06-17] MEDS: ACETAMINOPHEN 500 MG TAB PO PRN (12:13)
[2022-06-17] MEDS: HOME MED 1 EA UNK (Insulin Degludec [Tresiba Flextouch U-100] 100 UNIT/ML Insuln.Pen) SQ SCH (17:00)
--- NOTE | 2022-06-17 17:03 | RAD REPORT ---
EXAM DESCRIPTION: CT - Stone Protocol - 06/16/2022 6:44 am CLINICAL HISTORY: Hx of pyelonephritis TECHNIQUE: Axial computed tomography images of the abdomen and pelvis without intravenous contrast. Sagittal and coronal reformatted images were created and reviewed. This CT exam was performed usi ng one or more of the following dose reduction techniques: automated exposure control, adjustment o f the mA and/or kV according to patient size, and/or use of iterative reconstruction technique. COMPARISON: CT Abdomen Pelvis dated 01/28/2022 FINDINGS: Lung bases: Unremarkable. No mass. No consolidation. ABDOMEN: Liver: The liver is enlarged and diffusely low in density compatible with steatosis. Gallbladder and bile ducts: Unremarkable. No calcified stones. No ductal dilation. Pancreas: Unremarkable. No ductal dilation. Spleen: Unremarkable. No splenomegaly. Adrenals: Unremarkable. No mass. Kidneys and ureters: Mild perinephric stranding and minimal fullness of the renal collecting system s bilaterally, right greater than left. No calculi. Stomach and bowel: Moderate stool within the large bowel. No obstruction. No appreciable mucosal th ickening. PELVIS: Appendix: Normal caliber appendix. No findings to suggest acute appendicitis. Bladder: Unremarkable. No stones. Reproductive: Unremarkable as visualized. ABDOMEN and PELVIS: Intraperitoneal space: Unremarkable. No free air. No significant fluid collection. Bones/joints: Multilevel spondylosis. No acute fracture. No dislocation. Soft tissues: Tiny fat-containing umbilical and small fat-containing right inguinal hernias. Vasculature: Unremarkable. No abdominal aortic aneurysm. Lymph nodes: Unremarkable. No enlarged lymph nodes. IMPRESSION: 1. Mild perinephric stranding and minimal fullness of the renal collecting systems jarvis aterally, right greater than left. No calculi. This appearance is nonspecific and may in part be re lated to physiologic fullness. Please correlate clinically for urinary tract infection. 2. Other findings as above. Electronically signed by: Ac Gardiner MD 06/16/2022 2:05 AM CDT Due to temporary technical issues with the PACS/Fluency reporting system, reports are being signed by the in house radiologists without review as a courtesy to insure prompt reporting. The interpreting radiologist is fully responsible for the content of the report.
[2022-06-17] MEDS: allopurinoL 300 MG TAB PO SCH (21:57)
[2022-06-18] MEDS: HYDROMORPHONE HCL 1 MG/ML INJ IV PRN ×3 (00:23→09:41)
[2022-06-18] MEDS: ONDANSETRON 4 MG/2 ML VIAL IV PRN ×4 (00:23→17:30)
[2022-06-18] MEDS: Meropenem 1,000 MG in NA CHLORIDE 0.9% 100 ML IV SCH ×2 (04:56→12:11)
[2022-06-18] MEDS: NA CHLORIDE 0.9% 1,000 ML IV SCH (05:00)
[2022-06-18 05:32] LABS: Absolute Lymphocytes (CBC) 1.2 K/uL (0.7-4.9); Hematocrit 33.4 % (39.6-49.0); Lymphocytes % 19.4 % (15.3-44.8); MCV 84.1 fL (80-100); MPV 8.2 fL (7.6-11.3); RBC Red Blood Cell Count 3.96 M/uL (4.33-5.43)
[2022-06-18 05:44] LABS: Potassium 3.7 mmol/L (3.5-5.1)
--- NOTE | 2022-06-18 06:34 | P.PN ---
Subjective Date of Service: 06/17/22 patient is doing well with no new complaints. We will Hep-Lock IV fluids as patient is tolerating diet. Arrange for outpatient antibiotic therapy. Urine cultures from 1 week ago in the emergency room revealed ESBL. Review of Systems 10-point ROS is otherwise unremarkable Physical Examination - Vital Signs Temperature: 98.0 F Blood Pressure: 118/68 Pulse: 89 Respirations: 18 Pulse Ox (%): 95 - Physical Exam General: Alert, In no apparent distress, Oriented x3 HEENT: Atraumatic, PERRLA, EOMI Neck: Supple, JVD not distended Respiratory: Clear to auscultation bilaterally, Normal air movement Cardiovascular: Regular rate/rhythm, Normal S1 S2 Gastrointestinal: Normal bowel sounds, No tenderness Musculoskeletal: No tenderness Integumentary: No rashes Neurological: Normal speech, Normal tone, Normal affect Lymphatics: No axilla or inguinal lymphadenopathy - Studies Medications List Reviewed: Yes Assessment & Plan - Problems (Diagnosis) (1) Pyelonephritis Current Visit: Yes Status: Acute (2) Diabetes mellitus Current Visit: Yes Status: Chronic Qualifiers: Diabetes mellitus type: type 2 Diabetes mellitus halfway insulin use: with halfway use Diabetes mellitus complication status: with hyperglycemia Qualified Code(s): E11.65 - Type 2 diabetes mellitus with hyperglycemia; Z79.4 - rodent exterminator (current) use of insulin (3) Hypertension Current Visit: Yes Status: Chronic Qualifiers: Hypertension type: primary hypertension Qualified Code(s): I10 - Essential (primary) hypertension (4) Morbid obesity Current Visit: Yes Status: Chronic - Plan Plan: 1. Hep-Lock IV fluids 2. Arrange for outpatient IV antibiotics 3. case management consultation obtained 4. monitor volume status closely 5. strict blood pressure and blood sugar control 6. GI DVT prophylaxis Discharge Plan: Home Plan to discharge in: Greater than 2 days - Advance Directives Does patient have a Living Will: No Does patient have a Durable POA for Healthcare: No - Code Status/Comfort Care Code Status Assessed: Yes Code Status: Full Code Critical Care: No Time Spent Managing PTS Care (In Minutes): 40
[2022-06-18] MEDS ORDERED: POTASSIUM CL SA 10 MEQ TAB PO ONE (09:00)
[2022-06-18] MEDS: INSULIN -REGULAR HUMAN 50 UNIT/0.5 ML ML SQ SCH ×4 (09:39→20:25)
[2022-06-18] MEDS: METFORMIN HCL 500 MG TAB PO SCH ×2 (09:39→16:35)
[2022-06-18] MEDS: AMLODIPINE 10 MG TAB PO SCH (09:40)
[2022-06-18] MEDS: GABAPENTIN 300 MG CAP PO SCH ×2 (09:40→20:25)
[2022-06-18] MEDS: ENOXAPARIN 40 MG/0.4 ML SQ SCH (09:40)
[2022-06-18 12:38] VITALS: O2SAT 97
--- NOTE | 2022-06-18 14:36 | P.PN ---
Subjective Date of Service: 06/18/22 Chief Complaint: Pyelonephritis Subjective: Improving No acute events overnight. He reports persistent bilateral flank pain, which is controlled with his current pain regimen. He is agreeable to transition from IV to PO pain medications today. Review of Systems 10-point ROS is otherwise unremarkable Genitourinary: Dysuria Musculoskeletal: Back Pain (bilateral flank) Physical Examination - Vital Signs Temperature: 97.7 F Blood Pressure: 135/67 Pulse: 77 Respirations: 18 Pulse Ox (%): 97 - Physical Exam General: Alert, In no apparent distress, Oriented x3 HEENT: Atraumatic, PERRLA, Mucous membr. moist/pink, EOMI, Sclerae nonicteric Neck: Supple, JVD not distended Respiratory: Clear to auscultation bilaterally, Normal air movement Cardiovascular: No edema, Regular rate/rhythm, Normal S1 S2, No gallops, No rubs, No murmurs Gastrointestinal: Normal bowel sounds, Soft and benign, Non-distended, No tenderness, No rebound, No guarding Musculoskeletal: No clubbing, Tenderness (minimal CVA tenderness - suspect musculoskeletal) Integumentary: No rashes Neurological: Normal speech, Normal strength at 5/5 x4 extr, Normal affect - Studies Microbiology Data (last 24 hrs): 06/15/22 22:26 Clean Catch Urine Norris Count - Final >100,000 CFU/ML. 06/15/22 22:26 Clean Catch Urine - Final Escherichia Coli Esbl Medications List Reviewed: Yes Assessment And Plan - Plan # Bilateral ESBL Escherichia Coli Pyelonephritis (Right > Left) - Consulted Infectious Diseases and spoke with Dr. Lynn - recommendations appreciated - UA = 1+ blood, nitrite positive, 3+ leukocyte esterase, trace protein - CT abdomen/pelvis = "Mild perinephric stranding and minimal fullness of the renal collecting systems bilaterally, right greater than left. No calculi. This appearance is nonspecific and may in part be related to physiologic fullness. Please correlate clinically for urinary tract infection." - Currently on meropenem - will transition to ertapenem today in anticipation for discharge tomorrow - Appreciate case management assistance with arranging home health for IV antibiotics - For pain: - Discontinued IV hydromorphone, started PO hydrocodone-acetaminophen - Ordered lidocaine patch # Hyperglycemia in Type II Diabetes Mellitus complicated by Prior Diabetic Ulcers # Morbid Obesity - BMI 53.6 kg/m2 # Hepatic Steatosis - Continue home regimen - Correction scale insulin ordered # Hypertension - Continue home amlodipine Reid Izquierdo M.D. Discharge Plan: Home Plan to discharge in: 24 Hours
[2022-06-18] MEDS ORDERED: ERTAPENEM SODIUM 1 GM VIAL IVPB SCH (15:00)
[2022-06-18] MEDS ORDERED: ERTAPENEM NA 1 GM in NA CHLORIDE 0.9% 100 ML IVPB SCH (16:00)
[2022-06-18] MEDS: LIDOCAINE 4% PATCH TOP SCH (16:35)
[2022-06-18] MEDS: ACETAMINOPHEN 500 MG TAB PO PRN (16:35)
[2022-06-18] MEDS: HOME MED 1 EA UNK (Insulin Degludec [Tresiba Flextouch U-100] 100 UNIT/ML Insuln.Pen) SQ SCH (16:53)
[2022-06-18] MEDS: allopurinoL 300 MG TAB PO SCH (20:25)
--- NOTE | 2022-06-18 20:49 | CON ---
History Of Present Illness: This is a 41-year-old male, I was consulted for management of urinary tr act infection. The patient is currently being treated with Invanz for E coli ESBL. Denies any chest pain, abdominal pain, constipation, diarrhea, nausea, vomiting. Had some headache, for which he get s Tylenol. Past Medical History: Includes diabetes mellitus, diabetic ulcer, neuropathy, sleep apnea, morbid ob esity, lymphedema, varicose vein, deep venous thrombosis to the right leg. Social History: Nonsmoker. Nondrinker. Family History: Noncontributory. Medications: Invanz. See MARS for other medications. Allergies: VANCOMYCIN. Review of Systems: 10-point review was performed. Physical Examination: General: This is a 41-year-old male, lying in bed, not in any acute cardiopulmonary distress. Vital Signs: Temperature 97.7, pulse 77, respirations 18, blood pressure 135/67. HEENT: Unremarkable. Neck: Supple. Lungs: Basal crackles. Heart: S1, S2. Regular. Abdomen: Soft, nontender. Bowel sounds present. Extremities: 1+ edema. Diagnostic Data: Lab data shows WBC 6, hemoglobin 11.5, platelets 121. Chemistry shows sodium 132, potassium 3.7, chloride 96, bicarb 33, BUN 12, creatinine 0.7, glucose 219. Micro data shows E coli ESBL. Assessment And Plan: Urosepsis secondary to Escherichia coli extended-spectrum beta-lactamase in a p atient with significant history of diabetes mellitus, morbid obesity, anemia of chronic disease, mode rate protein-calorie malnourishment. Continue supportive care and antibiotic, total of 7 days. We w ill follow the patient as needed. NF/MODL Voice ID: [id number] Report ID: [id number]
[2022-06-18] MEDS: HYDROCODONE/APAP 5/325 MG TAB PO PRN (22:59)
[2022-06-19] MEDS: HYDROCODONE/APAP 5/325 MG TAB PO PRN ×2 (05:19→11:21)
[2022-06-19 05:48] LABS: Absolute Lymphocytes (CBC) 1.5 K/uL (0.7-4.9); Hematocrit 34.1 % (39.6-49.0); Lymphocytes % 28.1 % (15.3-44.8); MCV 82.7 fL (80-100); MPV 8.2 fL (7.6-11.3); RBC Red Blood Cell Count 4.12 M/uL (4.33-5.43)
[2022-06-19 06:00] LABS: Potassium 4.1 mmol/L (3.5-5.1)
[2022-06-19 06:33] LABS: Magnesium 1.6 mg/dL (1.8-2.4)
[2022-06-19] MEDS ORDERED: MAGNESIUM SULFATE 1 gm IVPB 1 GM/100 ML BAG IV ONE (09:00)
[2022-06-19] MEDS: METFORMIN HCL 500 MG TAB PO SCH (09:06)
[2022-06-19] MEDS: AMLODIPINE 10 MG TAB PO SCH (09:06)
[2022-06-19] MEDS: INSULIN -REGULAR HUMAN 50 UNIT/0.5 ML ML SQ SCH ×2 (09:06→11:29)
[2022-06-19] MEDS: GABAPENTIN 300 MG CAP PO SCH (09:06)
[2022-06-19] MEDS: ENOXAPARIN 40 MG/0.4 ML SQ SCH (09:06)
[2022-06-19] MEDS: LIDOCAINE 4% PATCH TOP SCH (09:06)
--- NOTE | 2022-06-19 09:46 | RAD REPORT ---
EXAM DESCRIPTION: RAD - Lumbar Spine - Single View - 06/19/2022 9:32 am CLINICAL HISTORY: back pain COMPARISON: No comparisons FINDINGS: Single lateral imaging performed. Lumbar bodies are normal in height and alignment. Minima l endplate spurring present at L2-3. No abnormal disc space narrowing. No pars defects or significant facet joint degenerative change. No acute or pathologic process identifiable. IMPRESSION: No acute lumbar vertebral body, disc or facet abnormality. Degenerative change at the L2-3 disc level.
--- NOTE | 2022-06-19 12:19 | PN ---
Subjective: The patient is lying in bed. No new acute event. Denies any burning urination or flank pain. No fevers. Objective: Vital Signs: Temperature 97.7, pulse 88, respirations 17, blood pressure 135/87. General: Complains of severe back pain. Denies any other aggravating factor except when he moves ar ound in the bed. Lidocaine patch and Tylenol are not helping him at this time. Lungs: Basal crackles. Heart: S1, S2. Regular. Abdomen: Obese. Bowel sounds present. Extremities: No or redness in the back and the lumbar region where the patient is complaining of sudarshan n. Laboratory Data: Shows WBC 5.2, hemoglobin 12.2, platelets are 142. Chemistry shows sodium 135, pot assium 4.1, chloride 98, bicarb 33, BUN 10, creatinine 0.6, glucose is 200. His lumbar spine x-ray d one earlier today shows no acute lumbar vertebral body disk or facet abnormalities. Assessment And Plan: 1.Urinary tract infection secondary to ESBL Escherichia coli. Currently, the patient on Invanz, con tinue for total of 7 days. 2.Lumbosacral myalgia, possibly secondary to prolonged bedrest. Continue supportive care and sympto matic care as per hospitalist team. We will follow the patient as needed. NF/MODL Voice ID: [id number] Report ID: [id number]
--- NOTE | 2022-06-19 13:56 | P.DS ---
Admission Date: 06/16/22 Discharge Date: 06/19/22 Disposition: DC HOME/HOME HEALTH CARE Discharge Condition: GOOD Reason for Admission: Pyelonephritis Consultations: 1. Infectious Diseases Hospital Course: DIAGNOSES: # Bilateral ESBL Escherichia Coli Pyelonephritis (Right > Left) # Hyperglycemia in Type II Diabetes Mellitus complicated by Prior Diabetic Ulc ers # Morbid Obesity - BMI 53.6 kg/m2 # Hepatic Steatosis # Hypertension # Microscopic Hematuria HOSPITAL COURSE: Mr. Addy Quintana is a pleasant 41 year old male with a past medical history significant for type 2 diabetes mellitus, hypertension, and morbid obesity who was admitted to the [facility] on 06/16/2022 for back pain. He was admitted to the Medicine service. Upon further evaluation, he was found to have bilateral ESBL pyelonephritis (right > left). He was started on IV antibiotics and Infectious Diseases was consulted. He was evaluated by Dr. Lynn, who recommended that he be discharged with an additional 7 days of ertapenem. Outpatient IV antibiotics have been set up at [facility] with the assistance of case management. Over his hospital course, he continued to improve symptomatically and felt that he was ready to be discharged home. Of note, he was found to have microscopic hematuria. He was counseled that, although this may be caused by his UTI, it can also be a sign of underlying urologic malignancy. He was advised to follow-up with his PCP for repeat urinalysis and further testing. He has also been provided extensive counseling on diet, exercise, and lifestyle modifications. On 06/19/2022, he was seen on rounds and deemed medically stable for discharge. He was discharged with instructions to schedule a follow-up appointment with his PCP ([facility]) in 3-5 days. Outpatient Ertapenem has been arranged. He was given the opportunity to ask questions and reported no further questions. Furthermore, all questions were answered to the best of my ability. Today, I personally spent 20 minutes on his case, of which greater than 50% of the time was spent in patient education, counseling, and coordination of care as described above. - Physical Exam General: Alert, In no apparent distress, Oriented x3 HEENT: Atraumatic, PERRLA, Mucous membr. moist/pink, EOMI, Sclerae nonicteric Neck: Supple, JVD not distended Respiratory: Clear to auscultation bilaterally, Normal air movement Cardiovascular: No edema, Regular rate/rhythm, Normal S1 S2, No gallops, No rubs, No murmurs Gastrointestinal: Normal bowel sounds, Soft and benign, Non-distended, No tenderness, No rebound, No guarding Musculoskeletal: No clubbing, Minimal lumbar tenderness (suspect musculoskeletal) Integumentary: No rashes Neurological: Normal speech, Normal strength at 5/5 x4 extr, Normal affect Vital Signs/Physical Exam: Temp Pulse Resp BP Pulse Ox 97.7 F 88 17 135/87 95 06/19/22 08:00 06/19/22 08:00 06/19/22 12:21 06/19/22 08:00 06/19/22 12:21 Laboratory Data at Discharge: WBC 5.20 K/uL (4.3-10.9) 06/19/22 05:20 Hgb 12.2 g/dL (13.6-17.9) L 06/19/22 05:20 Hct 34.1 % (39.6-49.0) L 06/19/22 05:20 Plt Count 142 K/uL (152-406) L 06/19/22 05:20 Sodium 135 mmol/L (136-145) L 06/19/22 05:20 Potassium 4.1 mmol/L (3.5-5.1) 06/19/22 05:20 BUN 10 mg/dL (7-18) 06/19/22 05:20 Creatinine 0.65 mg/dL (0.55-1.3) 06/19/22 05:20 Glucose 200 mg/dL (74-106) H 06/19/22 05:20 Magnesium 1.6 mg/dL (1.8-2.4) L 06/19/22 05:20 Total Bilirubin 0.6 mg/dL (0.2-1.0) 06/15/22 23:36 AST 11 U/L (15-37) L 06/15/22 23:36 ALT 30 U/L (12-78) 06/15/22 23:36 Alkaline Phosphatase 71 U/L (45-117) 06/15/22 23:36 Home Medications: RX: Gabapentin 600 mg PO BID 05/25/20 RX: Metformin HCl 1,000 mg PO BID 05/25/20 RX: Insulin Degludec [Tresiba Flextouch U-100] 38 unit SQ SEECOM 09/04/21 RX: Allopurinol 300 mg PO BEDTIME 06/16/22 RX: Amlodipine [Norvasc*] 10 mg PO DAILY tab 06/19/22 RX: Lidocaine 4% Patch [Lidoderm 5% Patch*] 1 patch TOP DAILY patch 06/19/22 Physician Discharge Instructions: 1. Please schedule a follow-up appointment with your PCP ([facility]) in 3-5 days Diet: Regular Activity: Ad cesar Followup: NONE,NONE [Primary Care Provider] - Time spent managing pt's care (in minutes): 20
[2022-06-19 13:57] VITALS: BP 123/72; TEMP 97.3
== END 2022-06-19 14:41 | disposition home or self-care (01) | DRG 690 ==
LOC: ER 22:02 → ERHOLD 06-16 02:12 → 4TH 06-16 04:09
PROVIDERS: ADMIT Hospitalist; ATTEND Internal Medicine
PROC: 02HV33Z Insertion of Infusion Device into Superior Vena Cava, Percutaneous Approach (ICD-10-PCS; principal; 2022-06-16)
DX: N10 Acute pyelonephritis (principal); Z16.20 Resistance to unspecified antibiotic; Z68.43 Body mass index [BMI] 50.0-59.9, adult; Z16.12 Extended spectrum beta lactamase (ESBL) resistance; C68.9 Malignant neoplasm of urinary organ, unspecified; E66.01 Morbid (severe) obesity due to excess calories; K76.0 Fatty (change of) liver, not elsewhere classified; M79.18 Myalgia, other site; I10 Essential (primary) hypertension; E11.65 Type 2 diabetes mellitus with hyperglycemia; E11.40 Type 2 diabetes mellitus with diabetic neuropathy, unspecified; F17.200 Nicotine dependence, unspecified, uncomplicated; B96.20 Unspecified Escherichia coli [E. coli] as the cause of diseases classified elsewhere; R31.29 Other microscopic hematuria; Z88.1 Allergy status to other antibiotic agents; Z88.8 Allergy status to other drugs, medicaments and biological substances; Z79.4 Long term (current) use of insulin; Z79.84 Long term (current) use of oral hypoglycemic drugs; Z79.899 Other long term (current) drug therapy; Z86.718 Personal history of other venous thrombosis and embolism; Z20.822 Contact with and (suspected) exposure to COVID-19
CPT/HCPCS: 36415; 71045; 72020; 74176; 76377; 80048; 80053; 81003; 82947; 83735; 84132; 85025; 87077; 87086; 87088; 87186; 87811; 96372; 96374; 99285; J1170; J1335; J1650; J1815; J2001; J2185; J2405; J2543; J3475; J7030; Q0169

== ENCOUNTER 2022-08-17 20:41 | Emergency (ER) | payer OTHER, SELFPAY ==
--- OUTSIDE RECORDS SUMMARY | 2022-08-17 20:45 | XMS REPORT | Continuity of Care Document ---
:1980 Author Organization [facility] t Address [address] [place] [address] Care Team Providers Name Role Phone Unavailable Unavailable Unavailable Payers Payer Name Policy Type Policy Number Effective Date Expiration Date S ource Problems This patient has no known problems. Allergies, Adverse Reactions, Alerts Allergy Allergy Status Severity Reaction(s) Onset Inactive Treating Comm ents Source Name Type Date Date Clinician No DA Active U 2018-0 [facility] Allergy 12-01 [place] [facility] 00:00: [facility] 00 l [facility] vancomyc DA Active SV 2018-0 [facility] in 2-25 [place] 00:00: [address] Medications This patient has no known medications. Procedures This patient has no known procedures. Results Test Description Test Time Test Comments Results Result Comments Source CULTURE, URINE 2022-06-07 SPECIMEN NUMBER: 11:52:31 [id number] CULTURE, URINE SPECIMEN NUMBER: [id number] SPECIMEN COMMENT: URINE SOURCE: URINE REPORT STATUS: [...] FOR MOREINFORMATION , SEE CLIENT ANNOUNCEMENT AT [email or web address] [email or web address] RATIO LDL/HDL (test code = 4.21 RATIO <3.55 H 2237) COMPREHENSIVE METABOLIC [id number] 07:07:13 Test Item Value Reference Range Interpretation Comments GLUCOSE (test code = 269 MG/DL 70-99 H 2216) BUN (test code = 24 MG/DL 6-20 H 2207) CREATININE (test 0.59 MG/DL 0.80-1.40 L code = 2214) eGFR (2020 CKD-EPI) 123 >60 (test code = 84248) ML/MIN/1.73 CALC BUN/CREAT (test 41 RATIO 6-28 H code = 2235) SODIUM (test code = 136 MEQ/L 092-080 0356) POTASSIUM (test code 4.8 MEQ/L 3.5-5.4 = 2227) CHLORIDE (test code 100 MEQ/L 95-107 = 221) CARBON DIOXIDE (test 23 MEQ/L 19-31 code [...] = 29 U/L 2218) ALBUMIN/CREATININE RATIO, URINE, [id number] 05:00:40 Test Item Value Reference Range Interpretation Comments CREATININE, URINE, 87.3 MG/DL NOT ESTAB CONC. (test code = 2072) ALBUMIN, URINE, 2.1 MG/DL NOT ESTAB RANDOM (test code = 48322) CALC ALBUMIN/CREAT, 24 MG/G <30 Note: RND (test code = Albumin/Cre atinine 49540) ratio reference interval reflec ts ADA and NKF guideli mariela. HEMOGLOBIN [id number] 03:59:22 Test Item Value Reference Range Interpretation Comments HEMOGLOBIN A1c (test 10.5 % 4.2-5.6 H AMERIC AN DIABETES code = 66920) ASSOCIATION IDELINES FOR HGB A1C: PREDIABETES/INC REASED [...] INDICATED, ALL TESTING PER FORMED ATCLINICAL PATH [facility]. [address] [place] [address] LABORATORY DIRE CTOR: Nancy CASTELLANOS. CLIA NUMBER [id number] CAP ACCREDITATION N O. [id number] CBC W/AUTO DIFF WITH [id number] 02:24:38 Test Item Value Reference Range Interpretation [...] RBCS 0.00 K/UL 0.00-0.11 (test code = 49974) [id number] 11:29:00 Test Item Value Reference Range Interpretation Comments GLUBED (test code = GLUBED) 202 mg/dL 70-110 H BASIC METABOLIC [id number] 05:36:00 Test Item Value Reference Range Interpretation [...] code = 8.2 mg/dL 7.8-10.9 N CA) [id number] 05:01:00 Test Item Value Reference Range Interpretation Comments GLUBED (test code = GLUBED) 185 mg/dL 70-110 H CBC W/AUTO [id number] 04:37:00 Test Item Value Reference Range Interpretation [...] code = 0.00 K/mm3 0.00-0.20 N NRBC#) [id number] 20:40:00 Test Item Value Reference Range Interpretation Comments GLUBED (test code = GLUBED) 256 mg/dL 70-110 H [id number] 17:24:00 Test Item Value Reference Range Interpretation Comments GLUBED (test code = GLUBED) 244 mg/dL 70-110 H [id number] 11:31:00 Test Item Value Reference Range Interpretation Comments GLUBED (test code = GLUBED) 272 mg/dL 70-110 H - DUP LE ART [id number] 09:44:00 [place]: [address]: [facility] 1980 Age[facility] 37/M [address] Unit #: [id number] Loc: [address] [place], [place] [address] Phys: Keny Duran MD Acct: [id number] Dis Date: Status: ADM IN PHONE #: [phone] Exam Date: 12/02/2018 033 FAX #: [phone] Reason: diabetic ulcers EXAMS: CPT CODE: [id number] DUP LE ART ARAVIND 25318 HISTORY: Ulcers TECHNIQUE: Grayscale B-mode, color-flow, and [...] By: [email or web address] Orig Print D/T: S: 12/02/2018 (0944) PAGE 1 Signed ReportCOMPREHENSIVE METABOLIC [id number] 06:17:00 Test Item Value Reference Range Interpretation [...] 45-117 N TOTAL (test code = ALKP) [id number] 06:17:00 Test Item Value Reference Range Interpretation Comments MAGNESIUM (test code = MAG) 2.0 mg/dL 1.5-2.1 N COMPREHENSIVE METABOLIC [id number] 06:10:00 Test Item Value Reference Range Interpretation [...] TOTAL (test U/L 45-117 code = ALKP) [id number] 06:10:00 Test Item Value Reference Range Interpretation Comments MAGNESIUM (test code = MAG) mg/dL 1.5-2.1 - CT CHEST W/O [id number] 05:51:00 [place]: [address]: [facility]: [facility] 1980 Age/S: 37/M [address] [facility] Unit #: [id number] Loc: [address] [place], [place] [address] Phys: Keny Duran MD Acct: [id number] Dis Date: Status: ADM IN PHONE #: [phone] Exam Date: 12/01/2018 0546 FAX #: [phone] Reason: PNA CTDI: DLP: Automated exposure control, iterative reconstruction technique, and/oradjustment of mA and/or kV according to patient's size was utilized fooptimum radiation dose reduction. EXAMS:CPT CODE: [id number] CT CHEST W/O CONTRAST 96196 HISTORY: Pneumonia TECHNIQUE: Axial tomograms through the [...] alities on this limited noncontrast examination. at 0581 Reported and signed by: LLOYD OGLESBY M.D. Facility ACR Accreditation for [place] - May 2012 CC: Keny Duran MD; Sunday Mendoza NP Technologist: CLAUDIA LUTZ RT(R)(CT) Transcribed Date/Time/By: 12/02/2018 (0551) : By: [email or web address] Orig Print D/T: S: 12/02/2018 (0557) PAGE 1 Signed ReportCBC W/AUTO [id number] 05:44:00 Test Item Value Reference Range Interpretation [...] code = 0.00 K/mm3 0.00-0.20 N NRBC#) [id number] 05:10:00 Test Item Value Reference Range Interpretation Comments GLUBED (test code = GLUBED) 201 mg/dL 70-110 H - DUP VEIN [id number] 04:37:00 [place]: [facility] St: [facility]: [facility] 1980 Age/S: 37/M [address] Unit #: [id number] Loc: [address] [place], [place] [address] Phys: Keny Duran MD Acct: [id number] Dis Date: Status: ADM IN PHONE #: [phone] Exam Date: 12/02/2018237 FAX #: [phone] Reason: BLE SWELLING EXAMS: CPT CODE: [id number] DUP VEIN ARAVIND 55580 HISTORY: Bilateral swelling TECHNIQUE: Grayscale real-time B-mode [...] 1 Signed Report- XR FOOT 2 VIEWS [id number] 00:17:00 FAX: Keny Leonard MD [place]: ER St: ADM FAX: Sunday Mendoza NP [phone] Name: [facility] : 1980 Age/S: 37/M [address] [facility] Unit #: [id number] Loc: [address] [address] Phys: Keny Duran MD Acct: [id number] Dis Date: Status: ADM IN PHONE #: [phone] Exam Date: 12/01/2018 2304 FAX #: [phone] Reason: GREAT TOE ULCER EXAMS: CPT CODE: [id number] XR FOOT [address] [place] [address] LOCATION: V20 EXAM: - XR FOOT 2 [...] 1 Signed Report- XR FOOT 2 VIEWS [id number] 00:17:00 FAX: Keny Leonard MD [place]: ER St: ADM FAX: Sunday Mendoza NP [phone] Name: [facility] : 1980 Age/S: 37/M [address] [facility] Unit #: [id number] Loc: [address] [address] Phys: Keny Duran MD Acct: [id number] Dis Date: Status: ADM IN PHONE #: [phone] Exam Date: 12/01/2018 2304 FAX #: [phone] Reason: GREAT TOE ULCER EXAMS: CPT CODE: [id number] XR FOOT [address] [place] [address] LOCATION: V20 EXAM: - XR FOOT 2 [...] H code = GLYHGB) MEAN BLOOD GLUCOSE [id number] 22:46:00 Test Item Value Reference Range Interpretation Comments MEAN BLOOD GLUCOSE CALCULATION (test 228.8 code = MBGCALC) URINALYSIS W/O [id number] 21:41:00 Test Item Value Reference Range Interpretation [...] (test code = LEUU) SOURCE: URINESPECIMEN DESCRIPTION: [facility] [id number] 21:41:00 Test Item Value Reference Range Interpretation Comments UA WBC (test code = WBCU) 2-5 0-5 UA RBC (test code = RBCU) 0-2 0-5 UA SQUAMOUS CELLS (test code = 5-10 #/lpf NONE SEEN SQU) SOURCE: URINESPECIMEN DESCRIPTION: CMCURINALYSIS W/O [id number] 21:04:00 Test Item Value Reference Range Interpretation [...] (test code = LEUU) SOURCE: URINESPECIMEN DESCRIPTION: [facility] [id number] 21:04:00 Test Item Value Reference Range Interpretation Comments UA WBC (test code = WBCU) 0-5 UA RBC (test code = RBCU) 0-5 SOURCE: URINESPECIMEN DESCRIPTION: CMCURINALYSIS W/O [id number] 21:04:00 Test Item Value Reference Range Interpretation [...] (test code = LEUU) SOURCE: URINESPECIMEN DESCRIPTION: [facility] [id number] 21:04:00 Test Item Value Reference Range Interpretation Comments UA WBC (test code = WBCU) 0-5 UA RBC (test code = RBCU) 0-5 SOURCE: URINESPECIMEN DESCRIPTION: [facility] [id number] 20:50:00 Test Item Value Reference Range Interpretation Comments POC LACTIC ACID (test code = 1.61 MMOL/L 0.40-2.00 N POCLAC) - XR CHEST 1 [id number] 20:42:00 FAX: Xavier Maguire [phone] [place]: ER St: REG Name: [facility] : 1980 Age/S: 37/M [address] Unit #: [id number] Loc: [place], [place] [address] Phys: Xavier Maguire MD Acct: [id number] Dis Date: Status: REG ER PHONE #: [phone] Exam Date: 12/01/20182039 FAX #: [phone] Reason: code sepsis EXAMS: CPT CODE: [id number] XR CHEST 1 V 47969 LOCATION: V20 EXAM: - XR CHEST 1 [...] dose reduction. PAGE 1 Signed ReportHEPATIC FUNCTION [id number] 19:50:00 Test Item Value Reference Range Interpretation [...] 45-117 N TOTAL (test code = ALKP) [id number] 19:50:00 Test Item Value Reference Range Interpretation Comments LIPASE (test code = 120 U/L 73-393 N Reportin g units: LIP) International U nits/L NT PRO-BRAIN NATRIURETIC [id number] 19:50:00 Test Item Value Reference Range Interpretation Comments NT PRO-BRAIN NATRIURETIC PEPTI (test 18 pg/mL 0-125 N code = PROBNP) [id number] 19:50:00 Test Item Value Reference Range Interpretation [...] 0.05 ng/mL 0.00-0.05 N PROCAL) CHEMISTRY 8 [id number] 19:36:00 Test Item Value Reference Range Interpretation [...] 0.7 MG/DL 0.6-1.0 N CREATBED) HEPATIC FUNCTION [id number] 19:36:00 Test Item Value Reference Range Interpretation [...] 45-117 N TOTAL (test code = ALKP) [id number] 19:36:00 Test Item Value Reference Range Interpretation Comments LIPASE (test code = 120 U/L 73-393 N Reportin g units: LIP) International U nits/L NT PRO-BRAIN NATRIURETIC [id number] 19:36:00 Test Item Value Reference Range Interpretation Comments NT PRO-BRAIN NATRIURETIC PEPTI (test 18 pg/mL 0-125 N code = PROBNP) [id number] 19:36:00 Test Item Value Reference Range Interpretation [...] (test code = ng/mL 0.00-0.05 PROCAL) PROTHROMBIN [id number] 19:25:00 Test Item Value Reference Interpretation Comments [...] THE PATIENT ON ANY ANTICOAGULANTS? NTHROMBOPLASTIN TIME [id number] 19:25:00 Test Item Value Reference Range Interpretation Comments THROMBOPLASTIN TIME PARTIAL 27.0 SECONDS 23.0-32.0 N (test code = PTT) IS THE PATIENT ON ANY ANTICOAGULANTS? NPOC LACTIC [id number] 19:11:00 Test Item Value Reference Range Interpretation Comments POC LACTIC ACID 2.68 MMOL/L 0.40-2.00 H RESULTS CALL ED TO [] (test code = POCLAC) [place] [address]/01/18.NMI-MT CRITICA L VALUE READ BA CK BY NURSE AND VERIF IED BY TECH? []REFEREN CE RANGES FOR: 1) ARTERIAL SAMPLE (0.5-1.6MMOL/L) 2) SPINAL FLUID (0.6-2.2MMOL/L) CBC W/AUTO [id number] 19:08:00 Test Item Value Reference Range Interpretation [...]
[2022-08-17 23:35] LABS: Absolute Lymphocytes (CBC) 2.2 K/uL (0.7-4.9); Hematocrit 41.1 % (39.6-49.0); Lymphocytes % 26.3 % (15.3-44.8); MPV 8.1 fL (7.6-11.3); RBC Red Blood Cell Count 4.89 M/uL (4.33-5.43)
[2022-08-17 23:37] LABS: Urine Blood Trace-intact (Negative); Urine Glucose 3+ (Negative); Urine Protein Negative (Negative); Urine pH 5.5 (5.0-7.0)
[2022-08-17 23:57] LABS: Albumin 3.3 g/dL (3.4-5.0); Bilirubin Total 0.5 mg/dL (0.2-1.0); Potassium 3.8 mmol/L (3.5-5.1)
[2022-08-17 23:59] LABS: Urine Mucus Slight /HPF (None Seen)
[2022-08-18] MEDS ORDERED: MORPHINE 4 MG/ML SYR ONE (00:09)
[2022-08-18] MEDS ORDERED: ONDANSETRON 4 MG/2 ML VIAL ONE (00:09)
[2022-08-18] MEDS ORDERED: NA CHLORIDE 0.9% 1,000 ML ONE (00:09)
[2022-08-18] MEDS ORDERED: INSULIN -REGULAR HUMAN 50 UNIT/0.5 ML ML ONE (00:48)
--- NOTE | 2022-08-18 01:16 | EDPHYS ---
Physician Documentation [facility] Name: Addy Quintana Jr Age: 41 yrs Sex: Male : 1980 Arrival Date: 08/17/2022 Time: 20:50 Bed 4 Private MD: ED Physician Perez Singer HPI: 08/17 22:00 This 41 yrs old Male presents to ER via Ambulatory with complaints of cp Nausea/Vomiting/Diarrhea, Abdominal Pain. 22:00 The patient presents with abdominal pain in the lower abdomen. Onset: The cp symptoms/episode began/occurred 1 week(s) ago. The symptoms do not radiate. Associated signs and symptoms: Pertinent positives: nausea and vomiting, diarrhea, Pertinent negatives: blood in stools, chest pain, constipation, fever, testicular pain, vomiting blood. The symptoms are described as constant. Severity of pain: in the emergency department the pain is unchanged despite home interventions. Historical: - Allergies: 20:52 VANCOMYCIN AND DERIVATIVES; hb - PMHx: 20:52 Diabetes - IDDM; DVT; Hypercholesterolemia; Hypertension; neuropathy; hb - PSHx: 20:52 Dion knee sx; hb - Immunization history:: Client reports receiving the 2nd dose of the Covid vaccine. - Social history:: Smoking status: unknown. ROS: 22:05 Constitutional: Negative for body aches, chills, fever, poor PO intake. cp 22:05 Eyes: Negative for injury, pain, redness, and discharge. cp 22:05 ENT: Negative for drainage from ear(s), ear pain, sore throat, difficulty swallowing, difficulty handling secretions. 22:05 Cardiovascular: Negative for chest pain, palpitations. 22:05 Respiratory: Negative for cough, shortness of breath, wheezing. 22:05 Abdomen/GI: Positive for abdominal pain, nausea, vomiting, and diarrhea, of the suprapubic area, Negative for constipation, anorexia, black/tarry stool, rectal bleeding. 22:05 Back: Negative for radiated pain. 22:05 Neuro: Negative for altered mental status, dizziness, headache, weakness. 22:05 All other systems are negative. Exam: 22:10 Constitutional: The patient appears in no acute distress, alert, awake, non-toxic, well cp developed, well nourished, obese, uncomfortable. 22:10 Head/Face: Normocephalic, atraumatic. cp 22:10 Eyes: Periorbital structures: appear normal, Conjunctiva: normal, no exudate, no injection, Sclera: no appreciated abnormality, Lids and lashes: appear normal, bilaterally. 22:10 ENT: External ear(s): are unremarkable, Nose: is normal, Mouth: Lips: moist, Oral mucosa: pink and intact, moist, Posterior pharynx: Airway: no evidence of obstruction, patent. 22:10 Chest/axilla: Inspection: normal. 22:10 Cardiovascular: Rate: tachycardic, Rhythm: regular. 22:10 Respiratory: the patient does not display signs of respiratory distress, Respirations: normal, no use of accessory muscles, no retractions, labored breathing, is not present, Breath sounds: are clear throughout, no decreased breath sounds, no stridor, no wheezing. 22:10 Abdomen/GI: Inspection: obese Bowel sounds: active, all quadrants, Palpation: soft, in all quadrants, moderate abdominal tenderness, in the suprapubic area, rebound tenderness, is not appreciated, voluntary guarding, is elicited in the suprapubic area. 22:10 Back: CVA tenderness, is absent. 22:10 Neuro: Orientation: to person, place \T\ time. Mentation: is normal, Motor: moves all fours, strength is normal, Gait: is steady. Vital Signs: 20:50 BP 151 / 92; Pulse 112; Resp 20; Temp 98.7; Pulse Ox 97% on R/A; Weight 143.34 kg; hb Height 5 ft. 6 in. (167.64 cm); Pain 04/15; 08/18 00:23 BP 116 / 93; Pulse 95; Resp 16; Pulse Ox 98% on R/A; aa9 01:35 BP 117 / 70; Pulse 84; Resp 20 S; Temp 97.8(O); Pulse Ox 96% on R/A; bb 08/17 20:50 Body Mass Index 51.00 (143.34 kg, 167.64 cm) hb MDM: 08/17 20:58 Patient medically screened. cp 08/18 00:00 Differential diagnosis: diverticulitis, colitis, dehydration, electrolyte abnormality. cp 01:15 Data reviewed: vital signs, nurses notes, lab test result(s), radiologic studies, CT cp scan. 01:15 Counseling: I had a detailed discussion with the patient and/or guardian regarding: the cp historical points, exam findings, and any diagnostic results supporting the discharge/admit diagnosis, lab results, radiology results, the need for outpatient follow up, a certified nurses' aide, to return to the emergency department if symptoms worsen or persist or if there are any questions or concerns that arise at home. Response to treatment: the patient's symptoms have markedly improved after treatment, and as a result, I will discharge patient. Special discussion: Based on the patient's Hx, exam, and Dx evaluation, there is no indication for emergent surgery or inpatient Tx. It is understood by the patient/guardian that if the Sx's persist or worsen they need to return immediately for re-evaluation. 08/17 21:34 Order name: CBC with Diff; Complete Time: 00:18 08/18 00:19 Interpretation: Reviewed. 08/17 21:34 Order name: CMP; Complete Time: 00:18 08/18 00:18 Interpretation: Normal except: NA 133; GLUC 363; ALB 3.3; GLOB 4.7; A/G 0.7. 08/17 21:34 Order name: Lipase; Complete Time: 00:18 08/18 00:18 Interpretation: Reviewed. 08/17 21:34 Order name: Urine Microscopic Only; Complete Time: 00:18 08/18 00:18 Interpretation: Normal except: URBC 5-10. 08/17 23:38 Order name: Urine Dipstick-Ancillary; Complete Time: 00:18 EDMS 08/18 00:18 Interpretation: Normal except: UGLUC 3+; UBLD Trace-intact. 08/18 01:03 Order name: Glucose, Ancillary Testing; Complete Time: 01:06 EDMS 08/17 21:34 Order name: CT Abd/Pelvis - PO and IV Contrast 08/17 21:34 Order name: IV Saline Lock; Complete Time: 23:31 08/17 21:34 Order name: Labs collected and sent; Complete Time: 23:31 08/17 21:34 Order name: Urine Dipstick-Ancillary (obtain specimen); Complete Time: 00:03 08/18 01:11 Order name: PO challenge; Complete Time: 01:37 cp Administered Medications: 00:17 Drug: NS 0.9% 1000 ml Route: IV; Rate: 1 bolus; Site: left antecubital; aa9 01:35 Follow up: IV Status: Completed infusion; IV Intake: 950ml bb 00:17 Drug: Zofran (Ondansetron) 4 mg Route: IVP; Site: left antecubital; 00:52 Follow up: Response: No adverse reaction 00:17 Drug: morphine 4 mg Route: IVP; Infused Over: 4 mins; Site: left antecubital; aa 00:52 Follow up: Response: No adverse reaction; RASS: Alert and Calm (0) 01:35 Follow up: Response: No adverse reaction bb 00:48 Drug: Insulin Regular Human 10 units {Co-Signature: siomara (Petra Sandy RN).} Route: aa9 IVP; Site: left antecubital; 01:34 Drug: metroNIDAZOLE 500 mg Route: PO; bb 01:34 Drug: Cipro (ciprofloxacin) 500 mg Route: PO; bb 01:34 Drug: Bentyl (dicyclomine) 20 mg Route: IM; Site: left gluteus; bb Disposition Summary: 08/18/22 01:15 Discharge Ordered Location: Home cp Problem: new cp Symptoms: have improved cp Condition: Stable cp Diagnosis - Indeterminate colitis - rectosigmoid colon cp - Nausea with vomiting, unspecified cp - Diarrhea, unspecified cp - Diabetes mellitus due to underlying condition with hyperglycemia cp Followup: cp - With: Hector Medellin MD - When: 1 week - Reason: Recheck today's complaints Discharge Instructions: - Discharge Summary Sheet cp - Diarrhea, Adult cp - Hyperglycemia cp - Nausea and Vomiting, Adult cp - Blood Glucose Monitoring, Adult cp - Diabetes Mellitus and Nutrition, Adult cp - Colitis cp Forms: - Medication Reconciliation Form cp - Thank You Letter cp - Antibiotic Education cp - Prescription Opioid Use cp Prescriptions: - Zofran 4 mg Oral Tablet - take 1 tablet by ORAL route every 12 hours As needed; 20 tablet; Refills: 0, cp Product Selection Permitted - Metformin 500 mg Oral Tablet - take 1 tablet by ORAL route once daily for 7 days Then take 1 tablet with cp morning meals AND evening meals; 21 tablet; Refills: 0, Product Selection Permitted - Cipro 500 mg Oral Tablet - take 1 tablet by ORAL route every 12 hours for 10 days; 20 tablet; Refills: 0, cp Product Selection Permitted - dicyclomine 20 mg Oral Tablet - take 1 tablet by ORAL route 4 times per day; 30 tablet; Refills: 0, Product cp Selection Permitted Addendum: 08/23/2022 09:53 Co-signature as Attending Physician, Perez Singer MD I agree with the assessment and c patton plan of care. Signatures: Dispatcher [employer] EDND Perez Singer MD MD cha Ballard, Brenda, RN RN bb Perez Foss PA PA cp Baxter, Heather RN RN Nani Skaggs RN RN aa9 Petra Sandy RN bb
--- NOTE | 2022-08-18 01:16 | ER ---
Nurse's Notes [facility] Name: Addy Quintana Jr Age: 41 yrs Sex: Male : 1980 Arrival Date: 08/17/2022 Time: 20:50 Bed 4 Private MD: Diagnosis: Indeterminate colitis-rectosigmoid colon;Nausea with vomiting, unspecified;Diarrhea, unspecified;Diabetes mellitus due to underlying condition with hyperglycemia Presentation: 08/17 20:50 Chief complaint: Diarrhea and lower abdominal pain x 1 week, vomiting today. hb Coronavirus screen: At this time, the client does not indicate any symptoms associated with coronavirus-19. Ebola Screen: No symptoms or risks identified at this time. Risk Assessment: Do you want to hurt yourself or someone else? Patient reports no desire to harm self or others. Onset of symptoms was August 10, 2022. 20:50 Method Of Arrival: Ambulatory hb 20:50 Acuity: FLORENCIO 3 hb 08/18 01:55 Initial Sepsis Screen: Does the patient meet any 2 criteria? No. Patient's initial aa9 sepsis screen is negative. Does the patient have a suspected source of infection? No. Patient's initial sepsis screen is negative. Historical: - Allergies: 08/17 20:52 VANCOMYCIN AND DERIVATIVES; hb - PMHx: 20:52 Diabetes - IDDM; DVT; Hypercholesterolemia; Hypertension; neuropathy; hb - PSHx: 20:52 Dion knee sx; hb - Immunization history:: Client reports receiving the 2nd dose of the Covid vaccine. - Social history:: Smoking status: unknown. Screenin:21 Abuse screen: Denies threats or abuse. Denies injuries from another. Nutritional hb screening: No deficits noted. Tuberculosis screening: No symptoms or risk factors identified. Fall Risk None identified. Assessment: 08/18 00:24 General: Appears uncomfortable, obese, Behavior is calm, cooperative, appropriate for aa9 age. General: Reports pt reports N/V/D. Pain: Complains of pain in suprapubic area Pain currently is 7 out of 10 on a pain scale. Noted to be grimacing, Also complains of nausea. Neuro: Level of Consciousness is awake, alert, obeys commands, Oriented to person, place, time, situation. Cardiovascular: Patient's skin is warm and dry. Rhythm is regular. Respiratory: Airway is patent Trachea midline Respiratory effort is even, unlabored. GI: Abd is soft X 4 quads. GI: Bowel sounds present X 4 quads. : Reports Denies burning with urination, pain. EENT: No signs and/or symptoms were reported regarding the EENT system. Derm: Skin is intact, is healthy with good turgor. 01:56 Reassessment: pt understands discharge instructions, denies concerns. aa9 Vital Signs: 08/17 20:50 BP 151 / 92; Pulse 112; Resp 20; Temp 98.7; Pulse Ox 97% on R/A; Weight 143.34 kg; hb Height 5 ft. 6 in. (167.64 cm); Pain 04/15; 08/18 00:23 BP 116 / 93; Pulse 95; Resp 16; Pulse Ox 98% on R/A; aa9 01:35 BP 117 / 70; Pulse 84; Resp 20 S; Temp 97.8(O); Pulse Ox 96% on R/A; bb 08/17 20:50 Body Mass Index 51.00 (143.34 kg, 167.64 cm) hb ED Course: 08/17 20:50 Patient arrived in ED. hb 20:52 Triage completed. hb 20:52 Arm band placed on. hb 20:58 Perez Foss PA is PHCP. cp 20:58 Perez Singer MD is Attending Physician. cp 21:46 Missed attempt(s): 20 gauge 20G RAC, 22G R WRIST, 20G LFA. Bleeding controlled, band hb aid applied, catheter tip intact. 23:21 Patient has correct armband on for positive identification. hb 23:31 CBC with Diff Sent. tw5 23:31 CMP Sent. tw5 23:31 Lipase Sent. tw5 23:31 Initial lab(s) drawn, by me, sent to lab. Inserted saline lock: 20 gauge in left tw5 antecubital area, using aseptic technique. Blood collected. 08/18 00:07 Nani Skaggs, GÓMEZ is Primary Nurse. aa9 00:36 CT Abd/Pelvis - PO and IV Contrast In Process Unspecified. EDMS 01:13 Hector Medellin MD is Referral Physician. cp 01:55 No provider procedures requiring assistance completed. IV discontinued, intact, aa9 bleeding controlled, No redness/swelling at site. Pressure dressing applied. Administered Medications: 00:17 Drug: NS 0.9% 1000 ml Route: IV; Rate: 1 bolus; Site: left antecubital; aa9 01:35 Follow up: IV Status: Completed infusion; IV Intake: 950ml bb 00:17 Drug: Zofran (Ondansetron) 4 mg Route: IVP; Site: left antecubital; aa9 00:52 Follow up: Response: No adverse reaction aa9 00:17 Drug: morphine 4 mg Route: IVP; Infused Over: 4 mins; Site: left antecubital; aa9 00:52 Follow up: Response: No adverse reaction; RASS: Alert and Calm (0) aa9 01:35 Follow up: Response: No adverse reaction bb 00:48 Drug: Insulin Regular Human 10 units {Co-Signature: siomara (Petra Sandy RN).} Route: aa9 IVP; Site: left antecubital; 01:34 Drug: metroNIDAZOLE 500 mg Route: PO; bb 01:34 Drug: Cipro (ciprofloxacin) 500 mg Route: PO; bb 01:34 Drug: Bentyl (dicyclomine) 20 mg Route: IM; Site: left gluteus; bb Medication: 01:56 VIS not applicable for this client. aa9 Intake: 01:35 IV: 950ml; Total: 950ml. bb Outcome: 01:15 Discharge ordered by . cp 01:55 Discharged to home ambulatory. aa9 01:55 Condition: stable 01:55 Discharge instructions given to patient, Instructed on discharge instructions, follow up and referral plans. medication usage, Demonstrated understanding of instructions, follow-up care, medications, Prescriptions given X 4. 01:57 Patient left the ED. aa9 Signatures: Dispatcher [employer] EDPetra Bansal RN RN bb Page, Corey, PA PA cp Baxter, Heather, RN RN hb Wood, Tiffany tw5 Nani Skaggs RN RN aa9 Petra stringer
[2022-08-18] MEDS ORDERED: metroNIDAZOLE 500 MG TABLET ONE (01:28)
[2022-08-18] MEDS ORDERED: CIPROFLOXACIN HCL 500 MG TAB ONE (01:28)
[2022-08-18] MEDS ORDERED: DICYCLOMINE HCL 20 MG/2 ML AMP IM ONE (01:28)
[2022-08-18 03:33] VITALS: BP 117/70; TEMP 97.8; O2SAT 96
--- NOTE | 2022-08-20 11:00 | RAD REPORT ---
EXAM DESCRIPTION: CT - Abdomen Pelvis W Contrast - 08/18/2022 6:27 am CLINICAL HISTORY: 41 years, Male, lower mid abdomen pain COMPARISON: TECHNIQUE: Contrast-enhanced images of the abdomen and pelvis were performed utilizing 5 mm slice th ickness at 5 mm interval reconstruction from the lung bases to the ischial tuberosities after the adm inistration of IV contrast. In addition multiplanar reformats in the coronal and sagittal plane were obtained and reviewed. This exam was performed according to our departmental dose-optimization protocol, which includes auto mated exposure control, adjustment of the mA and/or kV according to patient size and/or use of iterat susan reconstruction technique. FINDINGS: The lung bases demonstrate to be clear. The liver demonstrate decreased attenuation suggesting mild fatty infiltration. Otherwise the liver, gallbladder, pancreas, spleen and adrenal glands demonstrate to be unremarkable, no focal lesions are noted. The kidneys demonstrate normal uptake of contrast media. No evidence for nephrolithiasis and/or hydro nephrosis. Grossly the unopacified stomach and small bowel demonstrate to be within normal limits. There is mini mal opacification of the mid/distal small bowel loops which demonstrate to be unremarkable. There is no evidence for small bowel dilatation and/or free air. The appendix is normal. The large bowel demonstrate a mild fecal stasis. There is abnormal circumferential wall thickening of the rectosigmoid colon for which the possibility of a proctocolitis could be of consideration. There is minimal haziness within the distal perirectal area on axial image [id number], perhaps related to fluid and/or inflammation. Findings are somewhat similar to prior study. The urinary bladder demonstrate to be unremarkable. The prostate gland is normal. The aorta demon strate to be normal. There is no retroperitoneal lymphadenopathy. There is no ascites. The rest of the soft tissue and bony structures are within normal limits. IMPRESSION: Abnormal circumferential wall thickening of the rectosigmoid colon for which the possibi lity of a proctocolitis could be of consideration. There is minimal haziness within the distal perire ctal area, perhaps related to fluid and/or inflammation. Mild fecal stasis. Mild fatty infiltration of the liver. Electronically signed by: Fredo Haley MD 08/18/2022 12:52 AM FUEL YARD OPERATOR Due to temporary technical issues with the PACS/Fluency reporting system, reports are being signed by the in house radiologists without review as a courtesy to insure prompt reporting. The interpreting radiologist is fully responsible for the content of the report.
== END 2022-08-18 01:57 | disposition home or self-care (01) ==
LOC: ER 20:41
DX: K52.3 Indeterminate colitis (principal); E11.65 Type 2 diabetes mellitus with hyperglycemia; I10 Essential (primary) hypertension
CPT/HCPCS: 36415; 74177; 80053; 81003; 81015; 82947; 83690; 85025; 96361; 96372; 96374; 96375; 99284; J0500; J1815; J2405; J7030; Q9967

== ENCOUNTER 2022-12-22 09:52 | Emergency (ER) | payer OTHER, SELFPAY ==
--- OUTSIDE RECORDS SUMMARY | 2022-12-22 09:56 | XMS REPORT | Continuity of Care Document ---
:1980 Author Organization [facility] t Address [address] [place] [address] Care Team Providers Name Role Phone Unavailable Unavailable Unavailable Payers Payer Name Policy Type Policy Number Effective Date Expiration Date S ource Problems This patient has no known problems. Allergies, Adverse Reactions, Alerts Allergy Allergy Status Severity Reaction(s) Onset Inactive Treating Comm ents Source Name Type Date Date Clinician No DA Active U [facility] 12-01 [facility] DA Active SV 0 [facility] in 2-25 [place] 00:00: [address] Medications This patient has no known medications. Procedures This patient has no known procedures. Results Test Description Test Time Test Comments Results Result Comments Source GLUBED 2018-12-03 11:29:00 Test Item Value Reference Range Interpretation Comme nts GLUBED (test code = GLUBED) 202 mg/dL 70-110 H BASIC METABOLIC [id number] 05:36:00 Test Item Value Reference Range Interpretation [...] code = 8.2 mg/dL 7.8-10.9 N CA) [id number] 05:01:00 Test Item Value Reference Range Interpretation Comments GLUBED (test code = GLUBED) 185 mg/dL 70-110 H CBC W/AUTO [id number] 04:37:00 Test Item Value Reference Range Interpretation [...] code = 0.00 K/mm3 0.00-0.20 N NRBC#) [id number] 20:40:00 Test Item Value Reference Range Interpretation Comments GLUBED (test code = GLUBED) 256 mg/dL 70-110 H [id number] 17:24:00 Test Item Value Reference Range Interpretation Comments GLUBED (test code = GLUBED) 244 mg/dL 70-110 H [id number] 11:31:00 Test Item Value Reference Range Interpretation Comments GLUBED (test code = GLUBED) 272 mg/dL 70-110 H - DUP LE ART [id number] 09:44:00 [place]: [address]: [facility]: [facility] 1980 Age/S: 37/M [address] Unit #: [id number] Loc: [address] [place], [place] [address] Phys: Keny Duran MD Acct: [id number] Dis Date: Status: ADM IN PHONE #: [phone] Exam Date: 12/02/2018338 FAX #: [phone] Reason: diabetic ulcers EXAMS: CPT CODE: [id number] DUP LE ART ARAVIND 18339 HISTORY: Ulcers TECHNIQUE: Grayscale B-mode, color-flow, and [...] By: [email or web address] Orig Print D/T: S: 12/02/2018 (3537) PAGE 1 Signed ReportCOMPREHENSIVE METABOLIC [id number] 06:17:00 Test Item Value Reference Range Interpretation [...] 45-117 N TOTAL (test code = ALKP) [id number] 06:17:00 Test Item Value Reference Range Interpretation Comments MAGNESIUM (test code = MAG) 2.0 mg/dL 1.5-2.1 N COMPREHENSIVE METABOLIC [id number] 06:10:00 Test Item Value Reference Range Interpretation [...] TOTAL (test U/L 45-117 code = ALKP) [id number] 06:10:00 Test Item Value Reference Range Interpretation Comments MAGNESIUM (test code = MAG) mg/dL 1.5-2.1 - CT CHEST W/O [id number] 05:51:00 Jackson: [address]: [facility]: [facility] 1980 Age/S: 37/M [address] [facility] Unit #: [id number] Loc: [address] [place], [place] [address] Phys: Keny Duran MD Acct: [id number] Dis Date: Status: ADM IN PHONE #: [phone] Exam Date: 12/01/2018 0518 FAX #: [phone] Reason: PNA CTDI: DLP: Automated exposure control, iterative reconstruction technique, and/oradjustment of mA and/or kV according to patient's size was utilized fooptimum radiation dose reduction. EXAMS:CPT CODE: [id number] CT CHEST W/O CONTRAST 01512 HISTORY: Pneumonia TECHNIQUE: Axial tomograms through the chest were obtained without intravenous contrast. FINDINGS: Evaluation of mediastinal structures is limited without intravenous contrast. There is no significant mediastinal or hilar adenopathy. No significant pleural effusion. The aorta and mediastinal structures show no other significant abnormalities. The visualized lungs are clear. IMPRESSION: 1. No focal consolidation. No other acute abnorma lities on this limited noncontrast examination. at 0551 Reported and signed by: LLOYD OGLESBY M.D. Facility ACR Accreditation for CT - May2012 CC: Keny Duran MD; Sunday Mendoza NP Technologist: CLAUDIA LUTZ RT(R)(CT) Transcribed Date/Time/By: 12/02/2018 (0551) : By: [email or web address] Orig Print D/T: S: 12/02/2018 (0508) PAGE 1 Signed ReportCBC W/AUTO [id number] 05:44:00 Test Item Value Reference Range Interpretation [...] code = 0.00 K/mm3 0.00-0.20 N NRBC#) [id number] 05:10:00 Test Item Value Reference Range Interpretation Comments GLUBED (test code = GLUBED) 201 mg/dL 70-110 H - DUP VEIN [id number] 04:37:00 [place]: [facility] St: [facility]: [facility] 1980 Age/S: 37/M [address] Unit #: [id number] Loc: [address] [place], [place] [address] Phys: Keny Duran MD Acct: [id number] Dis Date: Status: ADM IN PHONE #: [phone] Exam Date: 12/02/2018237 FAX #: [phone] Reason: BLE SWELLING EXAMS: CPT CODE: [id number] DUP VEIN ARAVIND 03545 HISTORY: Bilateral swelling TECHNIQUE: Grayscale real-time B-mode [...] M.D. Facility ACR Accreditation for Ultrasound - November2011 CC: Keny Duran MD; Sunday Mendoza NP Technologist: SANDY CASTRO RDMS Transcribed Date/Time/By: 12/02/2018 (0437) : By: [email or web address] Orig Print D/T: S: 12/02/2018 (0440) PAGE 1 Signed Report- XR FOOT 2 VIEWS [id number] 00:17:00 FAX: Keny Leonard MD Camps: ER St: ADM FAX: Sunday Mendoza NP [phone] Name: SHILA COWART [facility] : 1980 Age/S: 37/M [address] [facility] Unit #: [id number] Loc: [address] [address] Phys: Keny Duran MD Acct: [id number] Dis Date: Status: ADM IN PHONE #: [phone] Exam Date: 12/01/2018 2304 FAX #: [phone] Reason: GREAT TOE ULCER EXAMS: CPT CODE: [id number] XR FOOT [address] [place] [address] LOCATION: V20 EXAM: - XR FOOT 2 [...] NP Technologist: JAILENE SWANSON RT (R)(ARRT); ... TranscribedDate/Time/By: 12/02/2018 (0017) :[email or web address] Orig Print D/T: S: 12/02/2018 (0021) Automated exposure control, iterative reconstruction technique, and/oradjustment of mA and/or kV according to patient's size was utilizedfor optimum radiation dose reduction. PAGE 1 Signed Report- XR FOOT 2 VIEWS [id number] 00:17:00 FAX: Keny Leonard MD Camps: ER St: ADM FAX: Sunday Mendoza NP [phone] Name: SHILA COWART [facility] : 1980 Age/S: 37/M [address] [facility] Unit #: [id number] Loc: [address] [place], [place] [address] Phys: Keny Duran MD Acct: [id number] Dis Date: Status: ADM IN PHONE #: [phone] Exam Date: 12/01/2018 2304 FAX #: [phone] Reason: GREAT TOE ULCER EXAMS: CPT CODE: [id number] XR FOOT [address] [place] [address] LOCATION: V20 EXAM: - XR FOOT 2 [...] H code = GLYHGB) MEAN BLOOD GLUCOSE [id number] 22:46:00 Test Item Value Reference Range Interpretation Comments MEAN BLOOD GLUCOSE CALCULATION (test 228.8 code = MBGCALC) URINALYSIS W/O [id number] 21:41:00 Test Item Value Reference Range Interpretation [...] (test code = LEUU) SOURCE: URINESPECIMEN DESCRIPTION: [facility] [id number] 21:41:00 Test Item Value Reference Range Interpretation Comments UA WBC (test code = WBCU) 2-5 0-5 UA RBC (test code = RBCU) 0-2 0-5 UA SQUAMOUS CELLS (test code = 5-10 #/lpf NONE SEEN SQU) SOURCE: URINESPECIMEN DESCRIPTION: CMCURINALYSIS W/O [id number] 21:04:00 Test Item Value Reference Range Interpretation [...] (test code = LEUU) SOURCE: URINESPECIMEN DESCRIPTION: [facility] [id number] 21:04:00 Test Item Value Reference Range Interpretation Comments UA WBC (test code = WBCU) 0-5 UA RBC (test code = RBCU) 0-5 SOURCE: URINESPECIMEN DESCRIPTION: CMCURINALYSIS W/O [id number] 21:04:00 Test Item Value Reference Range Interpretation [...] (test code = LEUU) SOURCE: URINESPECIMEN DESCRIPTION: [facility] [id number] 21:04:00 Test Item Value Reference Range Interpretation Comments UA WBC (test code = WBCU) 0-5 UA RBC (test code = RBCU) 0-5 SOURCE: URINESPECIMEN DESCRIPTION: [facility] LACTIC [id number] 20:50:00 Test Item Value Reference Range Interpretation Comments POC LACTIC ACID (test code = 1.61 MMOL/L 0.40-2.00 N POCLAC) - XR CHEST 1 [id number] 20:42:00 FAX: Xavier Maguire [phone] Camps: ER St: REG Name: SHILA COWART [facility] : 1980 Age/S: 37/M [address] Unit #: [id number] Loc: [place], [place] [address] Phys: Xavier Maguire MD Acct: [id number] Dis Date: Status: REG ER PHONE #: [phone] Exam Date: 12/01/20182039 FAX #: [phone] Reason: code sepsis EXAMS: CPT CODE: [id number] XR CHEST 1 V 93515 LOCATION: V20 EXAM: - XR CHEST 1 [...] dose reduction. PAGE 1 Signed ReportHEPATIC FUNCTION [id number] 19:50:00 Test Item Value Reference Range Interpretation [...] 45-117 N TOTAL (test code = ALKP) [id number] 19:50:00 Test Item Value Reference Range Interpretation Comments LIPASE (test code = 120 U/L 73-393 N Reportin g units: LIP) International U nits/L NT PRO-BRAIN NATRIURETIC [id number] 19:50:00 Test Item Value Reference Range Interpretation Comments NT PRO-BRAIN NATRIURETIC PEPTI (test 18 pg/mL 0-125 N code = PROBNP) [id number] 19:50:00 Test Item Value Reference Range Interpretation Comments TROPONIN-I (test <0.02 ng/mL 0.00-0.05 N <0.05 Norm al0.06 - 0.39 code = TROPI) Consistent wit h circulating Tro ponin with possible M yocardial injury.>0.40 Co nsistent with Myocardial injury extensive enoug h to conform with AM I as defined by WHO. PROCALCITONIN (PCT)2018-12-01 19:50:00 Test Item Value Reference Range Interpretation Comments PROCALCITONIN (PCT) (test code = 0.05 ng/mL 0.00-0.05 N PROCAL) CHEMISTRY 8 [id number] 19:36:00 Test Item Value Reference Range Interpretation [...] 0.7 MG/DL 0.6-1.0 N CREATBED) HEPATIC FUNCTION [id number] 19:36:00 Test Item Value Reference Range Interpretation [...] 45-117 N TOTAL (test code = ALKP) [id number] 19:36:00 Test Item Value Reference Range Interpretation Comments LIPASE (test code = 120 U/L 73-393 N Reportin g units: LIP) International U nits/L NT PRO-BRAIN NATRIURETIC [id number] 19:36:00 Test Item Value Reference Range Interpretation Comments NT PRO-BRAIN NATRIURETIC PEPTI (test 18 pg/mL 0-125 N code = PROBNP) [id number] 19:36:00 Test Item Value Reference Range Interpretation [...] (test code = ng/mL 0.00-0.05 PROCAL) PROTHROMBIN [id number] 19:25:00 Test Item Value Reference Interpretation Comments [...] THE PATIENT ON ANY ANTICOAGULANTS? NTHROMBOPLASTIN TIME [id number] 19:25:00 Test Item Value Reference Range Interpretation Comments THROMBOPLASTIN TIME PARTIAL 27.0 SECONDS 23.0-32.0 N (test code = PTT) IS THE PATIENT ON ANY ANTICOAGULANTS? NPOC LACTIC [id number] 19:11:00 Test Item Value Reference Range Interpretation Comments POC LACTIC ACID 2.68 MMOL/L 0.40-2.00 H RESULTS CALL ED TO [] (test code = POCLAC) [place] [address]/01/18.NMI-MT CRITICA L VALUE READ BA CK BY NURSE AND VERIF IED BY TECH? []REFEREN CE RANGES FOR: 1) ARTERIAL SAMPLE (0.5-1.6MMOL/L) 2) SPINAL FLUID (0.6-2.2MMOL/L) CBC W/AUTO [id number] 19:08:00 Test Item Value Reference Range Interpretation [...]
--- NOTE | 2022-12-22 10:56 | RAD REPORT ---
EXAM DESCRIPTION: Kymberly Single View3 10:34 am CLINICAL HISTORY: Cough COMPARISON: June 2022 FINDINGS: The lungs appear clear of acute infiltrate. The heart is normal size IMPRESSION: No acute abnormalities displayed
[2022-12-22 11:03] LABS: SARS-COV-2 RT PCR NEGATIVE (NEGATIVE)
[2022-12-22] MEDS ORDERED: ALBUTEROL 2.5 MG/3 ML NEB SOL ONE (11:17)
[2022-12-22] MEDS ORDERED: IPRATROPIUM BROM 0.5MG/2.5ML ONE (11:17)
--- NOTE | 2022-12-22 11:20 | ER ---
Nurse's Notes [facility] Name: Addy Quintana Jr Age: 42 yrs Sex: Male : 1980 Arrival Date: 12/22/2022 Time: 09:55 Bed 17 Private MD: Diagnosis: Acute bronchitis, unspecified Presentation: 12/22 10:04 Chief complaint: Patient states: Cough, body aches, [place], congestion for 4 days. ll1 Coronavirus screen: Vaccine status: Patient reports receiving the 2nd dose of the covid vaccine. Client denies travel out of the [place] in the last 14 days. congestion, cough unrelated to allergies, fatigue, headache, muscle pain, Client presents with at least one sign or symptom that may indicate coronavirus-19. Standard/surgical mask placed on the client. Ebola Screen: Patient denies travel to an Ebola-affected area in the 21 days before illness onset. Initial Sepsis Screen: Does the patient meet any 2 criteria? No. Patient's initial sepsis screen is negative. Does the patient have a suspected source of infection? Yes: Productive cough/pneumonia. Risk Assessment: Do you want to hurt yourself or someone else? Patient reports no desire to harm self or others. Onset of symptoms was December 19, 2022. 10:04 Method Of Arrival: Wheelchair ll1 10:04 Acuity: FLORENCIO 3 ll1 Triage Assessment: 10:05 General: Appears uncomfortable, ill, Behavior is cooperative, appropriate for age. ll1 Cardiovascular: Reports chest pain, fatigue. Cardiovascular: Reports. Respiratory: Reports cough that is. Historical: - Allergies: 10:03 VANCOMYCIN AND DERIVATIVES; ll1 - PMHx: 10:03 Diabetes - IDDM; DVT; Hypercholesterolemia; Hypertension; neuropathy; ll1 - PSHx: 10:03 Dion knee sx; ll1 - Immunization history:: Client reports receiving the 2nd dose of the Covid vaccine. - Social history:: Smoking status: Patient denies any tobacco usage or history of. Screenin:15 [facility] ED Fall Risk Assessment (Adult) History of falling in the last 3 months, kc6 including since admission No falls in past 3 months (0 pts) Confusion or Disorientation No (0 pts) Intoxicated or Sedated No (0 pts) Impaired Gait No (0 pts) Mobility Assist Device Used No (0 pt) Altered Elimination No (0 pt) Score/Fall Risk Level 0 - 2 = Low Risk Oriented to surroundings, Maintained a safe environment, Educated pt \T\ family on fall prevention, incl call for assistance when getting out of bed, Assessed \T\ reinforced patient's understanding of fall precautions, Hourly rounding (assess needs \T\ fall precautionary measures) done. Abuse screen: Denies threats or abuse. Denies injuries from another. Nutritional screening: No deficits noted. Tuberculosis screening: No symptoms or risk factors identified. Assessment: 10:13 General: Appears in no apparent distress. uncomfortable, obese, Behavior is calm, kc6 cooperative, appropriate for age. Pain: Complains of pain in head and chest Pain does not radiate. Pain currently is 8 out of 10 on a pain scale. Quality of pain is described as aching, Pain began gradually, Is continuous, Alleviated by nothing. Aggravated by increased activity, repositioning, Noted to be resistant to movement, Also complains of no other associated symptoms. Neuro: Hernandez Agitation-Sedation Scale (RASS): 0 - Alert and Calm Level of Consciousness is awake, alert, obeys commands, Oriented to person, place, time, situation, Appropriate for age. Cardiovascular: Reports chest pain, Heart tones S1 S2 present Capillary refill < 3 seconds Rhythm is sinus rhythm. Respiratory: Reports cough that is Airway is patent Trachea midline Respiratory effort is even, unlabored, Respiratory pattern is regular, symmetrical. GI: Reports diarrhea, Patient currently denies nausea, vomiting. : No signs and/or symptoms were reported regarding the genitourinary system. EENT: Reports nasal congestion. Derm: No signs and/or symptoms reported regarding the dermatologic system. Skin is intact, Skin is pink, warm \T\ dry. Musculoskeletal: No signs and/or symptoms reported regarding the musculoskeletal system. Circulation, motion, and sensation intact. Capillary refill < 3 seconds, Range of motion: intact in all extremities. 11:08 Reassessment: Patient appears in no apparent distress at this time. No changes from kc6 previously documented assessment. Patient and/or family updated on plan of care and expected duration. Pain level reassessed. Patient is alert, oriented x 3, equal unlabored respirations, skin warm/dry/pink. Vital Signs: 10:04 BP 109 / 93; Pulse 98; Resp 20; Temp 98.9; Pulse Ox 99% ; Weight 150.59 kg; Height 5 ll1 ft. 7 in. ; Pain 8/10; 11:09 BP 122 / 76; Pulse 81; Resp 18 S; Pulse Ox 96% on R/A; kc6 10:04 Body Mass Index 52.00 (150.59 kg, 170.18 cm) ll1 10:04 Pain Scale: Adult ll1 ED Course: 09:55 Patient arrived in ED. am2 09:56 Montse Burroughs FNP-C is [facility]. kb 09:56 Maurice Liang MD is Attending Physician. kb 10:03 Arm band placed on Patient placed in an exam room, on a stretcher. ll1 10:05 Triage completed. ll1 10:07 Zita Feng, RN is Primary Nurse. kc6 10:12 Patient has correct armband on for positive identification. Placed in gown. Bed in low mm9 position. Call light in reach. Side rails up X 1. Warm blanket given. Client placed on continuous cardiac and pulse oximetry monitoring. NIBP monitoring applied. phototypesetting equipment monitor on. Pulse ox on. NIBP on. 10:12 COVID-19/FLU A+B Sent. mm9 10:12 COVID swab sent to lab. Flu and/or RSV swab sent to lab. mm9 10:15 Patient maintains SpO2 saturation greater than 95% on room air. kc6 10:35 Chest Single View XRAY In Process Unspecified. EDMS Administered Medications: 11:15 Drug: Ipratropium Inhalation Aerosol 0.5 mg Route: Inhalation; kc6 11:15 Drug: Albuterol Inhalation 2.5 mg Route: Inhalation; kc6 Outcome: 11:20 Discharge ordered by . kb Signatures: Dispatcher [employer] EDMS Montse Burroughs FNP-C FNP-Ckb Moreno, Amanda am2 Yanira Doan RN RN ll1 Zita Feng, GÓMEZ RN kc6 Norma Wesley mm9
--- NOTE | 2022-12-22 11:20 | EDPHYS ---
Physician Documentation [facility] Name: Addy Quintana Jr Age: 42 yrs Sex: Male : 1980 Arrival Date: 12/22/2022 Time: 09:55 Bed 17 Private MD: ED Physician Maurice Liang HPI: 12/22 10:18 This 42 yrs old Male presents to ER via Wheelchair with complaints of Chest kb Pain, Cough, Chest Congestion, bodyaches. 10:18 The patient or guardian reports cough, flu symptoms. Onset: The symptoms/episode kb began/occurred 4 day(s) ago. Severity of symptoms: At their worst the symptoms were moderate, in the emergency department the symptoms are unchanged. Modifying factors: The symptoms are alleviated by nothing, the symptoms are aggravated by nothing. Associated signs and symptoms: Pertinent positives: chest pain, with cough, rhinorrhea. The patient has not experienced similar symptoms in the past. The patient has not recently seen a physician. Historical: - Allergies: 10:03 VANCOMYCIN AND DERIVATIVES; ll1 - PMHx: 10:03 Diabetes - IDDM; DVT; Hypercholesterolemia; Hypertension; neuropathy; ll1 - PSHx: 10:03 Dion knee sx; ll1 - Immunization history:: Client reports receiving the 2nd dose of the Covid vaccine. - Social history:: Smoking status: Patient denies any tobacco usage or history of. ROS: 10:16 Abdomen/GI: Negative for abdominal pain, nausea, vomiting, diarrhea, and constipation. kb 10:16 Constitutional: Positive for body aches, fatigue, malaise. 10:16 ENT: Positive for rhinorrhea, sinus congestion. 10:16 Cardiovascular: Positive for chest pain, with cough. 10:16 Respiratory: Positive for cough. 10:16 All other systems are negative. Exam: 10:16 Constitutional: This is a well developed, well nourished patient who is awake, alert, kb and in no acute distress. Head/Face: Normocephalic, atraumatic. ENT: Moist Mucous membranes Cardiovascular: Regular rate and rhythm with a normal S1 and S2. No gallops, murmurs, or rubs. No pulse deficits. Abdomen/GI: Soft, non-tender. No distention Skin: Warm, dry with normal turgor. Normal color. MS/ Extremity: Pulses equal, no cyanosis. Neurovascular intact. Full, normal range of motion. Neuro: Awake and alert, GCS 15, oriented to person, place, time, and situation. Moves all extremities. Normal gait. 10:16 ECG was reviewed by the Attending Physician. 10:16 Respiratory: the patient does not display signs of respiratory distress, Respirations: normal, Breath sounds: wheezing: expiratory that is mild, is heard in the left lower lobe and left posterior lower lobe. Vital Signs: 10:04 BP 109 / 93; Pulse 98; Resp 20; Temp 98.9; Pulse Ox 99% ; Weight 150.59 kg; Height 5 ll1 ft. 7 in. ; Pain 8/10; 11:09 BP 122 / 76; Pulse 81; Resp 18 S; Pulse Ox 96% on R/A; kc6 10:04 Body Mass Index 52.00 (150.59 kg, 170.18 cm) ll1 10:04 Pain Scale: Adult ll1 MDM: 09:56 Patient medically screened. kb 10:17 Differential diagnosis: Flu, COVID, pneumonia, URI. Data reviewed: vital signs, nurses kb notes. Independent interpretation of the following test(s) in the Emergency Department EKG: See my EKG interpretation above. ED course: Patient is a 42-year-old male who presents for cough, congestion, body aches, chest pain with cough that started 4 days ago. On exam patient has mild expiratory wheeze to the left base that clears after cough. Flu, COVID, chest x-ray and EKG ordered.. 11:19 Counseling: I had a detailed discussion with the patient and/or guardian regarding: the kb historical points, exam findings, and any diagnostic results supporting the discharge/admit diagnosis, lab results, radiology results, the need for outpatient follow up, a family practitioner, to return to the emergency department if symptoms worsen or persist or if there are any questions or concerns that arise at home. 12/22 10:03 Order name: EKG; Complete Time: 10:04 kb 12/22 10:03 Order name: EKG - Nurse/Tech; Complete Time: 10:08 kb 12/22 10:03 Order name: COVID-19/FLU A+B; Complete Time: 11:06 kb 12/22 10:03 Order name: Chest Single View XRAY; Complete Time: 11:06 kb EC:16 Rate is 83 beats/min. Rhythm is regular. QRS [place] is Normal. TX interval is normal at kb 148 msec. QRS interval is normal at 88 msec. QT interval is normal at 420 msec. Administered Medications: 11:15 Drug: Ipratropium Inhalation Aerosol 0.5 mg Route: Inhalation; kc6 11:15 Drug: Albuterol Inhalation 2.5 mg Route: Inhalation; kc6 Disposition Summary: 12/22/22 11:20 Discharge Ordered Location: Home kb Condition: Stable kb Diagnosis - Acute bronchitis, unspecified kb Followup: kb - With: Emergency Department - When: As needed - Reason: Worsening of condition Followup: kb - With: Private Physician - When: 2 - 3 days - Reason: Recheck today's complaints, Continuance of care, Re-evaluation by your physician Forms: - Medication Reconciliation Form kb - Thank You Letter kb - Antibiotic Education kb - Prescription Opioid Use kb Signatures: Dispatcher [employer] EDMontse Mora FNP-C FNP-Yanira River RN RN ll1 Zita Feng RN RN kc6
[2022-12-22] MEDS ORDERED: ACETAMINOPHEN 500 MG TAB ONE (11:31)
[2022-12-22 14:57] VITALS: BP 122/76; O2SAT 96
--- NOTE | 2022-12-24 17:39 | EKG ---
Test Date: 2022-12-22 Test Time: 10:10:52 Housekeeper Home: [facility] MEASUREMENT RESULTS: Intervals: Rate: 83 KS: 148 QRSD: 88 QT: 358 QTc: 420 [place]: P: 44 KS: 148 QRS: 61 T: 25 INTERPRETIVE STATEMENTS: Normal sinus rhythm Normal ECG Compared to ECG 01/16/2022 08:48:17 Right-axis deviation no longer present Myocardial infarct finding no longer present Electronically Signed On 12-24-22 17:36:19 CDT by Scott Tracey
== END 2022-12-22 11:37 | disposition home or self-care (01) ==
LOC: ER 09:52
DX: J20.9 Acute bronchitis, unspecified (principal); Z20.822 Contact with and (suspected) exposure to COVID-19
CPT/HCPCS: 0240U; 71045; 93005; 99285; J7613; J7644

== ENCOUNTER 2023-03-19 02:15 | Emergency (ER) | payer SELFPAY ==
--- OUTSIDE RECORDS SUMMARY | 2023-03-19 02:22 | XMS REPORT | Continuity of Care Document ---
:1980 Author Organization [facility] t Address [address] [facility] [place] [address] Care Team Providers Name Role Phone Unavailable Unavailable Unavailable Payers Payer Name Policy Type Policy Number Effective Date Expiration Date S ource Problems This patient has no known problems. Allergies, Adverse Reactions, Alerts Allergy Allergy Status Severity Reaction(s) Onset Inactive Treating Comm ents Source Name Type Date Date Clinician No DA Active U [facility] All[facility] 12-01 [place] [facility] 00:[facility]: [facility] 00 [facility] vancomyc DA Active SV 0 [facility] in -25 [place] 00:00: [address] Medications This patient has no known medications. Procedures This patient has no known procedures. Results Test Description Test Time Test Comments Results Result Comments Source GLUBED 2018-12-03 11:29:00 Test Item Value Reference Range Interpretation Comme nts GLUBED (test code = GLUBED) 202 mg/dL 70-110 H BASIC METABOLIC [id number] 05:36:00 Test Item Value Reference Range Interpretation [...] code = 8.2 mg/dL 7.8-10.9 N CA) [id number] 05:01:00 Test Item Value Reference Range Interpretation Comments GLUBED (test code = GLUBED) 185 mg/dL 70-110 H CBC W/AUTO [id number] 04:37:00 Test Item Value Reference Range Interpretation [...] code = 0.00 K/mm3 0.00-0.20 N NRBC#) [id number] 20:40:00 Test Item Value Reference Range Interpretation Comments GLUBED (test code = GLUBED) 256 mg/dL 70-110 H [id number] 17:24:00 Test Item Value Reference Range Interpretation Comments GLUBED (test code = GLUBED) 244 mg/dL 70-110 H [id number] 11:31:00 Test Item Value Reference Range Interpretation Comments GLUBED (test code = GLUBED) 272 mg/dL 70-110 H - DUP LE ART [id number] 09:44:00 Bulger: [address]: [facility]: [facility] 1980 Age[facility]S: 37/M [address] Unit #: [id number] Loc: [address] [place], [place] [address] Phys: Keny Duran MD Acct: [id number] Dis Date: Status: ADM IN PHONE #: [phone] Exam Date: 12/02/2018338 FAX #: [phone] Reason: diabetic ulcers EXAMS: CPT CODE: [id number] DUP LE ART ARAVIND [address] HISTORY: Ulcers TECHNIQUE: Grayscale B-mode, color-flow, and [...] By: [email or web address] Orig Print D/T: S: 12/02/2018 (4409) PAGE 1 Signed ReportCOMPREHENSIVE METABOLIC [id number] 06:17:00 Test Item Value Reference Range Interpretation [...] 45-117 N TOTAL (test code = ALKP) [id number] 06:17:00 Test Item Value Reference Range Interpretation Comments MAGNESIUM (test code = MAG) 2.0 mg/dL 1.5-2.1 N COMPREHENSIVE METABOLIC [id number] 06:10:00 Test Item Value Reference Range Interpretation [...] TOTAL (test U/L 45-117 code = ALKP) [id number] 06:10:00 Test Item Value Reference Range Interpretation Comments MAGNESIUM (test code = MAG) mg/dL 1.5-2.1 - CT CHEST W/O [id number] 05:51:00 Bulger: SHANN[address] St: [facility]: [facility] 1980 Age/S: 37/M [address] [facility] Unit #: [id number] Loc: [address] [place], [place] [address] Phys: Keny Duran MD Acct: [id number] Dis Date: Status: ADM IN PHONE #: [phone] Exam Date: 12/01/2018 0538 FAX #: [phone] Reason: PNA CTDI: DLP: Automated exposure control, iterative reconstruction technique, and/oradjustment of mA and/or kV according to patient's size was utilized fooptimum radiation dose reduction. EXAMS:CPT CODE: [id number] CT CHEST W/O CONTRAST 41167 HISTORY: Pneumonia TECHNIQUE: Axial tomograms through the [...] By: [email or web address] Orig Print D/T: S: 12/02/2018 (0570) PAGE 1 Signed ReportCBC W/AUTO [id number] 05:44:00 Test Item Value Reference Range Interpretation [...] code = 0.00 K/mm3 0.00-0.20 N NRBC#) [id number] 05:10:00 Test Item Value Reference Range Interpretation Comments GLUBED (test code = GLUBED) 201 mg/dL 70-110 H - DUP VEIN [id number] 04:37:00 [facility]: [facility]: [facility] 1980 Age/S: 37/M [address] Unit #: [id number] Loc: [address] [place], [place] [address] Phys: Keny Duran MD Acct: [id number] Dis Date: Status: ADM IN PHONE #: [phone] Exam Date: 12/02/2018237 FAX #: [phone] Reason: BLE SWELLING EXAMS: CPT CODE: [id number] DUP VEIN ARAVIND 16667 HISTORY: Bilateral swelling TECHNIQUE: Grayscale real-time B-mode [...] By: [email or web address] Orig Print D/T: S: 12/02/2018 (0447) PAGE 1 Signed Report- XR FOOT 2 VIEWS [id number] 00:17:00 FAX: Keny Leonard MD Camps: ER St: ADM FAX: Sunday Mendoza NP [phone] Name: SHILA COWART [facility] : 1980 Age/S: 37/M [address] [facility] Unit #: [id number] Loc: [address] [address] Phys: Keny Duran MD Acct: [id number] Dis Date: Status: ADM IN PHONE #: [phone] Exam Date: 12/01/2018 2304 FAX #: [phone] Reason: GREAT TOE ULCER EXAMS: CPT CODE: [id number] XR FOOT [address] [place] [address] LOCATION: V20 EXAM: - XR FOOT 2 [...] 1 Signed Report- XR FOOT 2 VIEWS [id number] 00:17:00 FAX: Keny Leonard MD Camps: ER St: ADM FAX: Sunday Mendoza NP [phone] Name: SHIL[facility]ART [facility] : 1980 Age/S: 37/M [address] [facility] Unit #: [id number] Loc: [address] [place], [place] [address] Phys: Keny Duran MD Acct: [id number] Dis Date: Status: ADM IN PHONE #: [phone] Exam Date: 12/01/2018 2304 FAX #: [phone] Reason: GREAT TOE ULCER EXAMS: CPT CODE: [id number] XR FOOT [address] [place] [address] LOCATION: V20 EXAM: - XR FOOT 2 [...] H code = GLYHGB) MEAN BLOOD GLUCOSE [id number] 22:46:00 Test Item Value Reference Range Interpretation Comments MEAN BLOOD GLUCOSE CALCULATION (test 228.8 code = MBGCALC) URINALYSIS W/O [id number] 21:41:00 Test Item Value Reference Range Interpretation [...] (test code = LEUU) SOURCE: URINESPECIMEN DESCRIPTION: [facility] [place] [id number] 21:41:00 Test Item Value Reference Range Interpretation Comments UA WBC (test code = WBCU) 2-5 0-5 UA RBC (test code = RBCU) 0-2 0-5 UA SQUAMOUS CELLS (test code = 5-10 #/lpf NONE SEEN SQU) SOURCE: URINESPECIMEN DESCRIPTION: CMCURINALYSIS W/O [id number] 21:04:00 Test Item Value Reference Range Interpretation [...] (test code = LEUU) SOURCE: URINESPECIMEN DESCRIPTION: [facility] [id number] 21:04:00 Test Item Value Reference Range Interpretation Comments UA WBC (test code = WBCU) 0-5 UA RBC (test code = RBCU) 0-5 SOURCE: URINESPECIMEN DESCRIPTION: CMCURINALYSIS W/O [id number] 21:04:00 Test Item Value Reference Range Interpretation [...] (test code = LEUU) SOURCE: URINESPECIMEN DESCRIPTION: [facility] [place] [id number] 21:04:00 Test Item Value Reference Range Interpretation Comments UA WBC (test code = WBCU) 0-5 UA RBC (test code = RBCU) 0-5 SOURCE: URINESPECIMEN DESCRIPTION: [facility] [place] LACTIC [id number] 20:50:00 Test Item Value Reference Range Interpretation Comments POC LACTIC ACID (test code = 1.61 MMOL/L 0.40-2.00 N POCLAC) - XR CHEST 1 [id number] 20:42:00 FAX: Xavier Maguire [phone] Camps: ER St: REG Name: [facility] : 1980 Age/S: 37/M [address] Unit #: [id number] Loc: [place], [place] [address] Phys: Xavier Maguire MD Acct: [id number] Dis Date: Status: REG ER PHONE #: [phone] Exam Date: 12/01/20182039 FAX #: [phone] Reason: code sepsis EXAMS: CPT CODE: [id number] XR CHEST 1 V [address]389 LOCATION: V20 EXAM: - XR CHEST 1 [...] DSOUZA M.D.CC: Xavier Maguire MD Technologist: Keerthi Pearza RT(R)CT(ARRT) Transcribed Date/Time/By: 12/01/2018 (2041) :[email or web address] Orig Print D/T: S: 12/01/2018 (2044) Automated exposure control, iterative reconstruction technique, and/oradjustment of mA and/or kV according to patient's size was utilizedfor optimum radiation dose reduction. PAGE 1 Signed ReportHEPATIC FUNCTION [id number] 19:50:00 Test Item Value Reference Range Interpretation [...] 45-117 N TOTAL (test code = ALKP) [id number] 19:50:00 Test Item Value Reference Range Interpretation Comments LIPASE (test code = 120 U/L 73-393 N Reportin g units: LIP) International U nits/L NT PRO-BRAIN NATRIURETIC [id number] 19:50:00 Test Item Value Reference Range Interpretation Comments NT PRO-BRAIN NATRIURETIC PEPTI (test 18 pg/mL 0-125 N code = PROBNP) [id number] 19:50:00 Test Item Value Reference Range Interpretation [...] 0.05 ng/mL 0.00-0.05 N PROCAL) CHEMISTRY 8 [id number] 19:36:00 Test Item Value Reference Range Interpretation [...] 0.7 MG/DL 0.6-1.0 N CREATBED) HEPATIC FUNCTION [id number] 19:36:00 Test Item Value Reference Range Interpretation [...] 45-117 N TOTAL (test code = ALKP) [id number] 19:36:00 Test Item Value Reference Range Interpretation Comments LIPASE (test code = 120 U/L 73-393 N Reportin g units: LIP) International U nits/L NT PRO-BRAIN NATRIURETIC [id number] 19:36:00 Test Item Value Reference Range Interpretation Comments NT PRO-BRAIN NATRIURETIC PEPTI (test 18 pg/mL 0-125 N code = PROBNP) [id number] 19:36:00 Test Item Value Reference Range Interpretation [...] (test code = ng/mL 0.00-0.05 PROCAL) PROTHROMBIN [id number] 19:25:00 Test Item Value Reference Interpretation Comments [...] THE PATIENT ON ANY ANTICOAGULANTS? NTHROMBOPLASTIN TIME [id number] 19:25:00 Test Item Value Reference Range Interpretation Comments THROMBOPLASTIN TIME PARTIAL 27.0 SECONDS 23.0-32.0 N (test code = PTT) IS THE PATIENT ON ANY ANTICOAGULANTS? NPOC LACTIC [id number] 19:11:00 Test Item Value Reference Range Interpretation Comments POC LACTIC ACID 2.68 MMOL/L 0.40-2.00 H RESULTS CALL ED TO [] (test code = PO[place]) [place] [address]/01/18.NMI-MT CRITICA L VALUE READ BA CK BY NURSE AND VERIF IED BY TECH? []REFEREN CE RANGES FOR: 1) ARTERIAL SAMPLE (0.5-1.6MMOL/L) 2) SPINAL FLUID (0.6-2.2MMOL/L) CBC W/AUTO [id number] 19:08:00 Test Item Value Reference Range Interpretation [...] code = 0.00 K/mm3 0.00-0.20 N NRBC#) Notes Date/Time Note Provider Source 2018-12-03 14:02:00-00:00 [facility] Discharge Summary REPORT#:[id number] REPORT STATUS: Signed DATE:12/03/18 TIME: 1402 PATIENT: SHILA COWART UNIT #: [id number] [address] AGE: 37 SEX: M ATTEND: Cuca Duran MD ADM AUTHOR: Edin Cross MD * ALL edits or amendments must be made on the el [employer]/computer document * PCP PCP PCP: PCP: Keny Duran MD Discharge to: home General Information Date of admission: Observation Start Date: Date of admission: 12/01/18 Date of discharge: 12/03/18 Hospital course: IMPRESSION: 1. Uncontrolled diabetes mellitus. 2. Sepsis secondary to bilateral lower extremity ulcers. 3. Obstructive sleep apnea. 4. Obesity hypoventilation syndrome. This is a 37-year-old gentleman with past medica l history of hypertension uncontrolled type 2 diabetes mellitus and morbid obesity presents to the emerge department admission 12/01/2018 complaini ng of fevers generalized body weakness and generalized body aches. Patient also reporte d nonhealing ulcer to the bilateral great toes. Patient workup upon arriva l to the emergency department yielded patient to have influenza a and B screen which was negative though the patient was noted to be febrile size 1 1.1 patie nt was tachycardic at 115 meeting sepsis criteria whic h were the patient was admitted to medicine service for further evaluation treatment. Patient WBC co unt at that time was within normal limits. Patient was s tarted empiric antibody therapy with vancomycin and Zosyn later transitioned to clindamycin. Patient 's a WBC count did remain within normal limits though did decrease to appr oximately 0.8 upon discharge. Patient was afebrile through out hospitalization except for initial presentation. Patient's tachycardia did resolve with aggressi ve fluid hydration was 70 bpm upon discharge. Patient was evaluated by podiatr y service and recommended continued wound care and will continue to follow -up in the outpatient setting for possible surgical intervention at a later date. Patient and family will be taught on continued wound care to be done in the outpatient setting. Patient some discharge denied any new complaints . Patient was able to ambulate without difficulty and was have regular bowel mo vements. Pt denies any fevers, chills, cough, SOB, CP, Palpitations, Abd. pain, N/V, di arrhea, dysuria, hematuria. Med Rec PCP PCP: PCP: Keny Duran MD Med Rec Discharge meds: Continue taking these medications: GABAPENTIN (NEURONTIN) 600 MG TAB 600 MILLIGRAM ORAL THREE TIMES A DAY. metFORMIN (GLUCOPHAGE) 1,000 MG TAB 1,000 MILLIGRAM ORAL TWICE DAILY. CARVEDILOL (COREG) 12.5 MG TAB 12.5 MILLIGRAM ORAL TWICE DAILY. EMPAGLIFLOZIN (JARDIANCE) 10 MG TAB 10 MILLIGRAM ORAL DAILY. Start taking the following new medications: CLINDAMYCIN HCL (CLEOCIN) 150 MG CAP 300 MILLIGRAM ORAL THREE TIMES A DAY. Qty = 30 No Refills Discharge Instructions Diet: diabetic Activity: as tolerated Prescriptions: on chart, e-prescribe Discharge management: greater than 30 mins Follow-up Appointments PCP: PCP: Keny Duran MD Special instructions: ESTABLISH WITH PCP GERSON. Attending Physician: Attending Physician: Keny Duran MD Consulting provider 1: Provider 1: Reji Garcia Specialty: OTHER SPECIALTY Phone: [phone] Follow up timeframe: In 1-2 weeks Objective VS/I O Last Documented: Result Date Time Pulse Ox 98 12/03 1051 B/P 126/82 12/03 1051 B/P Mean 96.9 12/03 1051 Temp 97.7 12/03 1051 Pulse 70 12/03 1051 Resp 18 12/03 1051 FiO2 21 12/03 0603 O2 Delivery Room air 12/03 0603 24 hour I O ending at 0700: 12/03 0700 12/02 1900 Intake Total 1500.00 2500.00 Output Total 1400 Balance 100.00 2500.00 Intake, IV 1100.00 1300.00 Intake, Oral 400 1200 Number 0 Bowel Movements Number Voids 1 4 Output, Urine 1400 Patient 159 kg Weight General appearance: alert, awake, oriented Head/Eyes: atraumatic, clear cornea, EOMI, normo cephalic, normal conjunctiva/ sclera ENT: moist mucosal membranes Cardiovascular: regular rate rhythm, normal hear t sounds Respiratory: clear to auscultation, no d istress, no tenderness, aerating well, symmetric expansion GI: soft, non-tender, no guarding, no rebound, n o distention Extremities: moves all Neuro/AMUSEMENT RIDE OPERATOR: alert, oriented X 3, normal speech Skin: dry, intact Wound/incision: Location: WOUND OF BL FEET. CLEAN AND DRY. Results Findings/Data: Laboratory Tests: 12/03 12/03 12/03 12/02 12/02 1052 0447 4399 6451 1715 Chemistry Sodium (136 - 145 mmol/L) 138 Potassium (3.5 - 5.1 mmol/L) 3.9 Chloride (98 - 113 mmol/L) 105 Carbon Dioxide (21 - 32 mmol/L) 28 BUN (7 - 18 mg/dL) 19 H Creatinine (0.6 - 1.0 mg/dL) 0.8 Glomerular Filtr Rate 114 Glucose (65 - 99 mg/dL) 208 H POC Glucose (70 - 110 mg/dL) 202 H 185 H 256 H 244 H Calcium (7.8 - 10.9 mg/dL) 8.2 Hematology WBC (4.8 - 10.8 K/mm3) 3.9 L RBC (4.2 - 5.4 M/mm3) 4.66 Hgb (13.5 - 17.5 gm/DL) 13.5 Hct (37.1 - 51.5 %) 40.9 MCV (81 - 99 fL) 87.8 MCH (27 - 31 pg) 29.0 MCHC (33 - 37 gm/dL) 33.0 RDW (11.5 - 14.5 %) 13.3 Plt Count (130 - 400 X10(3)) 139 MPV (9.4 - 12.4 fL) 10.9 Neut % (Auto) (51.5 - 79.7 %) 48.5 L Lymph % (Auto) (14 - 40 %) 31.2 Bowman % (Auto) (4.0 - 10.2 %) 16.2 H Eos % (Auto) (0 - 4.1 %) 3.3 Baso % (Auto) (0.1 - 0.7 %) 0.5 Neut # (Auto) (2.5 - 8.6 K/mm3) 1.9 L Lymph # (Auto) (1.1 - 3.6 K/mm3) 1.2 Bowman # (Auto) (0.3 - 0.9 K/mm3) 0.6 Eos # (Auto) (0.0 - 0.4 #) 0.13 Baso # (Auto) (0.0 - 0.2 K/mm3) 0.02 Nucleated RBC % (0 - 0 %) 0 Nucleated RBCs # (Man) (0.00 - 0.20 K/mm3) 0.0 0 at 1403 RPT #:[id number] END OF REPORT 2018-12-02 21:18:00-00:00 [facility] Hospitalist Progress Note REPORT#:[id number] REPORT STATUS: Signed DATE:12/02/18 TIME: 2117 PATIENT: SHILA COWART UNIT #: [id number] [address] AGE: 37 SEX: M ATTEND: Cuca Duran MD ADM AUTHOR: Salena Mendoza NP * ALL edits or amendments must be made on the [employer]/computer document * Subjective Free Text Subj Notes Free Subj Notes: PATIENT IS SEEN AND EXAMINED, WITH FAMILY AT BED SIDE DURING MY VISIT. HE IS AAOX3, ON ROOM AIR, WITH IV FLUID AND ANTIBIOTIC INFUSING. HE HAS NO NEW COMPLAINTS, FOOT PAIN IS WEL L CONTROLLED, DENIES CHEST PAIN, SHORTNESS OF BREATH , GI UPSET, COUGH, OR CHILLS. HE IS AFEBRILE TOD AY, NO ACUTE EVENTS REPORTED OVER NIGHT PER NURSING STAFF. Objective General VS/I O: Vital Signs: Date Time Temp Pulse Resp B/P B/P Pulse O2 O2 F low FiO2 Mean Ox Delivery Rate 12/02 2017 98.8 76 20 123/82 95.4 95 Room air 12/02 1736 Room air 12/02 1510 98.4 75 20 121/76 91.2 96 12/02 1055 97.3 76 20 103/68 79.6 95 Room air 12/02 0711 99.1 75 20 109/60 76.0 97 Room air 12/02 0544 94 21 12/02 0336 98.8 78 20 124/82 96.1 91 Room air 12/01 2200 98.2 92 20 133/83 99.3 96 Room air 12/01 2140 99.9 95 16 123/59 80 97 24 hour I O ending at 0700: 12/02 0700 12/01 1900 Intake Total 825.00 Output Total 500 Balance 325.00 Intake, IV 525.00 Intake, Oral 300 Output, Urine 500 Patient 159 kg Weight Weight Standing scale Measurement Method Medications: Active Meds + DC'd Last 24 Hrs Cadexomer Iodine 1 APPLIC Q48HR TOPICAL Gabapentin 600 MG TID PO Clindamycin HCl/Dextrose 50 ML Q8HR IV Famotidine 20 MG BID PO Mupirocin 1 APPLIC BID NASAL Insulin Human Regular 0 AC HS SUBQ Enoxaparin Sodium 40 MG DAILY@0600 SUBQ Piperacillin Sod/Tazobactam Sod 3.375 GM Q8HR IV Sodium Chloride 100 ML Insulin Human Regular ACCUCHECK Q6 HRS THEN IF; BS 151-200= UNIT BS 201-250= UNIT BS 251-300= UNIT BS 301-350= UNIT BS 351-400= UNIT BS >401 = UNIT Q6HR SUBQ (DC) Acetaminophen 1,000 MG Q6H PRN PRN PO Dextrose/Water 0 ASDIR PRN IV Hydralazine HCl 10 MG Q6H PRN PRN IV Magnesium Sulfate 50 ML ASDIR PRN IV (CKD) Ondansetron HCl 4 MG Q4H PRN PRN IV Potassium Bicarbonate/Citric Acid 20 MEQ ASDIR P RN FEED-TUBE Potassium Chloride 20 MEQ ASDIR PRN PO Potassium Chloride 100 ML ASDIR PRN IV Potassium Chloride 100 ML ASDIR PRN IV Sodium Chloride 1,000 ML .[id number] IV Tramadol HCl 50 MG Q6H PRN PRN PO Dextrose/Water 50 ML ASDIR PRN IV (DC) Physical Exam General appearance: alert, awake, oriented, no a cute distress Head/Eyes: atraumatic, normal conjunctiva/sclera , PERRLA ENT: moist mucosal membranes Neck: full range of motion, non-tender, no JVD Cardiovascular: normal capillary refill, normal heart sounds, regular rate rhythm Respiratory: aerating well, clear to auscultatio n, symmetric expansion, no distress Abdomen: non-tender, normal bowel sounds, soft, no distention Genitourinary: no flank pain Rectal: deferred Extremities: moves all, normal capillary refill Musculoskeletal: normal inspection Neuro/AMUSEMENT RIDE OPERATOR: alert, oriented X 3, CNII-XII intact, normal speech Considered stroke alert: no Ileana Coma Score: [place] Coma Score: Response Value Patient intubated? no Ileana eyes: eyes open spontaneously 4 [place] speech: oriented 5 [place] motor: obeys commands 6 Total 15 Skin: dry, PLANTAR WOUND BILATERAL GREAT TOE, NO DRAINAGE NOTED. Lymphatics: axilla normal, neck normal Psychiatry: normal affect, normal judgment/insig ht, normal mood Results Findings/Data: Laboratory Tests 12/02 1715 1130 0458 0455 Chemistry Sodium (136 - 145 mmol/L) 136 Potassium (3.5 - 5.1 mmol/L) 4.0 Chloride (98 - 113 mmol/L) 102 Carbon Dioxide (21 - 32 mmol/L) 27 BUN (7 - 18 mg/dL) 16 Creatinine (0.6 - 1.0 mg/dL) 0.7 Glomerular Filtr Rate 133 Glucose (65 - 99 mg/dL) 196 H POC Glucose (70 - 110 mg/dL) 256 H 244 H 272 H 201 H Calcium (7.8 - 10.9 mg/dL) 8.0 Magnesium (1.5 - 2.1 mg/dL) 2.0 Total Bilirubin (0.0 - 1.1 mg/dL) 0.5 AST (15 - 37 U/L) 15 ALT (10 - 30 U/L) 31 H Total Alk Phosphatase (45 - 117 U/L) 84 Total Protein (6.4 - 8.2 g/dL) 7.5 Albumin (3.4 - 5.0 g/dL) 3.0 L Globulin (2.3 - 3.5 gm/dL) 4.5 H Albumin/Globulin Ratio (1.5 - 2.2) 0.7 L Laboratory Tests 12/02 454 Hematology WBC (4.8 - 10.8 K/mm3) 6.2 RBC (4.2 - 5.4 M/mm3) 4.61 Hgb (13.5 - 17.5 gm/DL) 13.2 L Hct (37.1 - 51.5 %) 40.9 MCV (81 - 99 fL) 88.7 MCH (27 - 31 pg) 28.6 MCHC (33 - 37 gm/dL) 32.3 L RDW (11.5 - 14.5 %) 13.3 Plt Count (130 - 400 X10(3)) 144 MPV (9.4 - 12.4 fL) 10.9 Neut % (Auto) (51.5 - 79.7 %) 77.1 Lymph % (Auto) (14 - 40 %) 13.3 L Bowman % (Auto) (4.0 - 10.2 %) 8.5 Eos % (Auto) (0 - 4.1 %) 0.6 Baso % (Auto) (0.1 - 0.7 %) 0.2 Neut # (Auto) (2.5 - 8.6 K/mm3) 4.8 Lymph # (Auto) (1.1 - 3.6 K/mm3) 0.8 L Bowman # (Auto) (0.3 - 0.9 K/mm3) 0.5 Eos # (Auto) (0.0 - 0.4 #) 0.04 Baso # (Auto) (0.0 - 0.2 K/mm3) 0.01 Nucleated RBC % (0 - 0 %) 0 Nucleated RBCs # (Man) (0.00 - 0.20 K/mm3) 0.00 Microbiology Date/Time Procedure - Status Source Growth 12/02 0515 MRSA Screen - COMP NASAL Radiology data: Recent Impressions: RADIOLOGY - XR FOOT 2 VIEWS LT 12/01 2303 Report Impression - Status: SIGNED Entered: 12/02/2018 002 IMPRESSION: Mild dorsal soft tissue swelling is present nicolette g the left distal foot. There is question of associated 11 mm focu s of subcutaneous soft tissue gas, correlate for open wound. There is no evidence of an cortical abnormality or focal osteopenia in either foot to indicate acute osteomyelitis. Impression By: Jenaro DSOUZA M.D. RADIOLOGY - XR FOOT 2 VIEWS RT 12/01 2303 Report Impression - Status: SIGNED Entered: 12/02/2018 002 IMPRESSION: Mild dorsal soft tissue swelling is present nicolette g the left distal foot. There is question of associated 11 mm focu s of subcutaneous soft tissue gas, correlate for open wound. There is no evidence of an cortical abnormality or focal osteopenia in either foot to indicate acute osteomyelitis. Impression By: Jenaro DSOUZA M.D. ULTRASOUND - DUP VEIN ARAVIND 12/02 0238 Report Impression - Status: SIGNED Entered: 12/02/2018 0441 IMPRESSION: 1. No evidence of DVT. Impression By: [email or web address] - LLOYD CASE M.D. ULTRASOUND - DUP LE ART ARAVIND 12/02 0339 Report Impression - Status: SIGNED Entered: 12/02/2018 0944 IMPRESSION: 1. Scattered atherosclerotic plaque demonstrated . No area of long segment occlusion or high-grade flow limiting st enosis. Impression By: [email or web address] - LLOYD OGLESBY M.D. Diagnosis, Assessment Plan Hospital course to date: IMPRESSION: 1. Uncontrolled diabetes mellitus. 2. Sepsis secondary to bilateral lower extremity ulcers. 3. Obstructive sleep apnea. 4. Obesity hypoventilation syndrome. PLAN: 1. The patient remains admitted to the care of [facility] hospitalist service. 2. Continue on a regimen of clindamycin and Zosy n. Pharmacy consulted for appropriate dosing. 3. Continue on DVT and peptic ulcer prophylaxis. 4. Follow blood cultures. 5. Hydrate the patient with NS at 75 ml an hour. 6. Continue on insulin sliding scale. 7. We have consulted podiatry for evaluation of patient's ulcers. 8. Order bilateral lower extremity arterial and venous Dopplers. 9. Further recommendations as per podiatry and w ound care team. 10. Tentative discharge in 24 to 48 hours. at 2126 RPT #:[id number] END OF REPORT 2018-12-02 21:18:00-00:00 [facility] Hospitalist Progress Note REPORT#:[id number] REPORT STATUS: Signed DATE:12/02/18 TIME: 2117 PATIENT: SHILA COWART UNIT #: [id number] [facility]ED: [facility] : [facility] AGE: 37 SEX: M ATTEND: Duc Duran MD ADM AUTHOR: Salena Mendoza NP * ALL edits or amendments must be made on the el [employer]/computer document * Subjective Free Text Subj Notes Free Subj Notes: PATIENT IS SEEN AND EXAMINED, WITH FAMILY AT BED SIDE DURING MY VISIT. HE IS AAOX3, ON ROOM AIR, WITH IV FLUID AND ANTIBIOTIC INFUSING. HE HAS NO NEW COMPLAINTS, FOOT PAIN IS WEL L CONTROLLED, DENIES CHEST PAIN, SHORTNESS OF BREATH , GI UPSET, COUGH, OR CHILLS. HE IS AFEBRILE TOD AY, NO ACUTE EVENTS REPORTED OVER NIGHT PER NURSING STAFF. Objective General VS/I O: Vital Signs: Date Time Temp Pulse Resp B/P B/P Pulse O2 O2 F low FiO2 Mean Ox Delivery Rate 12/02 2017 98.8 76 20 123/82 95.4 95 Room air 12/02 1736 Room air 12/02 1510 98.4 75 20 121/76 91.2 96 12/02 1055 97.3 76 20 103/68 79.6 95 Room air 12/02 0711 99.1 75 20 109/60 76.0 97 Room air 12/02 0544 94 21 12/02 0336 98.8 78 20 124/82 96.1 91 Room air 12/01 2200 98.2 92 20 133/83 99.3 96 Room air 12/01 2140 99.9 95 16 123/59 80 97 24 hour I O ending at 0700: 12/02 0700 12/01 1900 Intake Total 825.00 Output Total 500 Balance 325.00 Intake, IV 525.00 Intake, Oral 300 Output, Urine 500 Patient 159 kg Weight Weight Standing scale Measurement Method Medications: Active Meds + DC'd Last 24 Hrs Cadexomer Iodine 1 APPLIC Q48HR TOPICAL Gabapentin 600 MG TID PO Clindamycin HCl/Dextrose 50 ML Q8HR IV Famotidine 20 MG BID PO Mupirocin 1 APPLIC BID NASAL Insulin Human Regular 0 AC HS SUBQ Enoxaparin Sodium 40 MG DAILY@0600 SUBQ Piperacillin Sod/Tazobactam Sod 3.375 GM Q8HR IV Sodium Chloride 100 ML Insulin Human Regular ACCUCHECK Q6 HRS THEN IF; BS 151-200= UNIT BS 201-250= UNIT BS 251-300= UNIT BS 301-350= UNIT BS 351-400= UNIT BS >401 = UNIT Q6HR SUBQ (DC) Acetaminophen 1,000 MG Q6H PRN PRN PO Dextrose/Water 0 ASDIR PRN IV Hydralazine HCl 10 MG Q6H PRN PRN IV Magnesium Sulfate 50 ML ASDIR PRN IV (CKD) Ondansetron HCl 4 MG Q4H PRN PRN IV Potassium Bicarbonate/Citric Acid 20 MEQ ASDIR P RN FEED-TUBE Potassium Chloride 20 MEQ ASDIR PRN PO Potassium Chloride 100 ML ASDIR PRN IV Potassium Chloride 100 ML ASDIR PRN IV Sodium Chloride 1,000 ML .[id number] IV Tramadol HCl 50 MG Q6H PRN PRN PO Dextrose/Water 50 ML ASDIR PRN IV (DC) Physical Exam General appearance: alert, awake, oriented, no a cute distress Head/Eyes: atraumatic, normal conjunctiva/sclera , PERRLA ENT: moist mucosal membranes Neck: full range of motion, non-tender, no JVD Cardiovascular: normal capillary refill, normal heart sounds, regular rate rhythm Respiratory: aerating well, clear to auscultatio n, symmetric expansion, no distress Abdomen: non-tender, normal bowel sounds, soft, no distention Genitourinary: no flank pain Rectal: deferred Extremities: moves all, normal capillary refill Musculoskeletal: normal inspection Neuro/AMUSEMENT RIDE OPERATOR: alert, oriented X 3, CNII-XII intact, normal speech Considered stroke alert: no Ileana Coma Score: Ileana Coma Score: Response Value Patient intubated? no [place] eyes: eyes open spontaneously 4 Ileana speech: oriented 5 [place] motor: obeys commands 6 Total 15 Skin: dry, PLANTAR WOUND BILATERAL GREAT TOE, NO DRAINAGE NOTED. Lymphatics: axilla normal, neck normal Psychiatry: normal affect, normal judgment/insig ht, normal mood Results Findings/Data: Laboratory Tests 12/02 12/02 12/02 12/02 12/02 2035 1715 1130 0458 0455 Chemistry Sodium (136 - 145 mmol/L) 136 Potassium (3.5 - 5.1 mmol/L) 4.0 Chloride (98 - 113 mmol/L) 102 Carbon Dioxide (21 - 32 mmol/L) 27 BUN (7 - 18 mg/dL) 16 Creatinine (0.6 - 1.0 mg/dL) 0.7 Glomerular Filtr Rate 133 Glucose (65 - 99 mg/dL) 196 H POC Glucose (70 - 110 mg/dL) 256 H 244 H 272 H 201 H Calcium (7.8 - 10.9 mg/dL) 8.0 Magnesium (1.5 - 2.1 mg/dL) 2.0 Total Bilirubin (0.0 - 1.1 mg/dL) 0.5 AST (15 - 37 U/L) 15 ALT (10 - 30 U/L) 31 H Total Alk Phosphatase (45 - 117 U/L) 84 Total Protein (6.4 - 8.2 g/dL) 7.5 Albumin (3.4 - 5.0 g/dL) 3.0 L Globulin (2.3 - 3.5 gm/dL) 4.5 H Albumin/Globulin Ratio (1.5 - 2.2) 0.7 L Laboratory Tests 12/02 0455 Hematology WBC (4.8 - 10.8 K/mm3) 6.2 RBC (4.2 - 5.4 M/mm3) 4.61 Hgb (13.5 - 17.5 gm/DL) 13.2 L Hct (37.1 - 51.5 %) 40.9 MCV (81 - 99 fL) 88.7 MCH (27 - 31 pg) 28.6 MCHC (33 - 37 gm/dL) 32.3 L RDW (11.5 - 14.5 %) 13.3 Plt Count (130 - 400 X10(3)) 144 MPV (9.4 - 12.4 fL) 10.9 Neut % (Auto) (51.5 - 79.7 %) 77.1 Lymph % (Auto) (14 - 40 %) 13.3 L Bowman % (Auto) (4.0 - 10.2 %) 8.5 Eos % (Auto) (0 - 4.1 %) 0.6 Baso % (Auto) (0.1 - 0.7 %) 0.2 Neut # (Auto) (2.5 - 8.6 K/mm3) 4.8 Lymph # (Auto) (1.1 - 3.6 K/mm3) 0.8 L Bowman # (Auto) (0.3 - 0.9 K/mm3) 0.5 Eos # (Auto) (0.0 - 0.4 #) 0.04 Baso # (Auto) (0.0 - 0.2 K/mm3) 0.01 Nucleated RBC % (0 - 0 %) 0 Nucleated RBCs # (Man) (0.00 - 0.20 K/mm3) 0.0 0 Microbiology Date/Time Procedure - Status Source Growth 12/02 0515 MRSA Screen - COMP NASAL Radiology data: Recent Impressions: RADIOLOGY - XR FOOT 2 VIEWS LT 12/01 9634 Report Impression - Status: SIGNED Entered: 12/02/2018 0021 IMPRESSION: Mild dorsal soft tissue swelling is present nicolette g the left distal foot. There is question of associated 11 mm focu s of subcutaneous soft tissue gas, correlate for open wound. There is no evidence of an cortical abnormality or focal osteopenia in either foot to indicate acute osteomyelitis. Impression By: Jenaro DSOUZA M.D. RADIOLOGY - XR FOOT 2 VIEWS RT 12/01 2304 Report Impression - Status: SIGNED Entered: 12/02/2018 0021 IMPRESSION: Mild dorsal soft tissue swelling is present nicolette g the left distal foot. There is question of associated 11 mm focu s of subcutaneous soft tissue gas, correlate for open wound. There is no evidence of an cortical abnormality or focal osteopenia in either foot to indicate acute osteomyelitis. Impression By: Jenaro DSOUZA M.D. ULTRASOUND - DUP VEIN ARAVIND 12/02 0238 Report Impression - Status: SIGNED Entered: 12/02/2018 0441 IMPRESSION: 1. No evidence of DVT. Impression By: AmandaRXPrecious OGLESBY M.D. ULTRASOUND - DUP LE ART ARAVIND 12/02 0339 Report Impression - Status: SIGNED Entered: 12/02/2018 0944 IMPRESSION: 1. Scattered atherosclerotic plaque demonstrated . No area of long segment occlusion or high-grade flow limiting st enosis. Impression By: Nellie OGLESBY M.D. Diagnosis, Assessment Plan Hospital course to date: IMPRESSION: 1. Uncontrolled diabetes mellitus. 2. Sepsis secondary to bilateral lower extremity ulcers. 3. Obstructive sleep apnea. 4. Obesity hypoventilation syndrome. PLAN: 1. The patient remains admitted to the care of [facility] hospitalist service. 2. Continue on a regimen of clindamycin and Zosy n. Pharmacy consulted for appropriate dosing. 3. Continue on DVT and peptic ulcer prophylaxis. 4. Follow blood cultures. 5. Hydrate the patient with NS at 75 ml an hour. 6. Continue on insulin sliding scale. 7. We have consulted podiatry for evaluation of patient's ulcers. 8. Order bilateral lower extremity arterial and venous Dopplers. 9. Further recommendations as per podiatry and w ound care team. 10. Tentative discharge in 24 to 48 hours. at 2126 at 1029 [facility] #:[id number] END OF REPORT 2018-12-02 14:02:00-00:00 [id number] [facility] [address] [place], [place], [address] PATIENT NAME: SHILA COWART ADMIT DATE: ACCOUNT NO: [id number] ROOM NO: [facility] AGE: 37 REPORT TYPE: CONSULTATION REPORT SEX: M ADMITTING PHYSICIAN:Keny Duran MD ATTENDING PHYSICIAN:Keny Duran MD CONSULTING PHYSCIAN:Reji Garcia CONSULTATION DATE: 12/02/2018 CONSULTING PHYSICIAN: Reji Garcia DPNancy HISTORY OF PRESENT ILLNESS: This is a 37-year-ol d male seen in consultation, courtesy of Dr. Duran for evaluati on of bilateral hallux ulceration. The patient has been admitted to the hospital due to ulcerations in bilateral hallux, presented yesterday to the Emergency Room, complains of fevers and generalized body weakness. PAST MEDICAL HISTORY: The patient has a medical history of diabetes mellitus, morbid obesity, and hypertension. His glucose is uncontrolled, recently elevated to 342. PAST SURGICAL HISTORY: The patient denies any fair rgical history. ALLERGIES: HE HAS ALLERGIES TO VANCOMYCIN. SOCIAL HISTORY: Denies any history of tobacco. D enies any illicit drugs. Occasional alcohol use. CURRENT MEDICATIONS: Have been reviewed in the [facility]. SYSTEM REVIEW: He was at this time, aler t, awake, and well oriented. He denies any chest pain. No palpitation. No nausea, vomit ing, or diarrhea. No dysuria or hematuria. His most recent laboratory w orkup demonstrated white count of 6.2, hemoglobin of 13.2, red blood cell of 4.61 , and hematocrit of 40.9. His most recent chemistry demonstrated sodium of 136, potassium of 4.0, BUN of 16, and serum creatinine of 0.7, blood glucose was 196, coming down from 272 . The patient is otherwise alert and awake as stated above. Vascular ultrasounds demonstrated triphasic waveforms through out the lower extremity. There is some scattered atherosclerotic plaque in the area, but no area of occlusion at this time. High-grade flow limiting stenosis, especia lly to the left lower extremity, but waveforms are seen involving dist al anterior tibialis and dorsalis pedis arteries and also monophasic waveforms on the posterior tibialis arteries. Foot x-ray evaluation demonstrated on the left foot, arterial calcifications, which were all over his foot. Th ere is a questionable soft tissue area, which most like ly is correlating with the ulceration of the hallux PATIENT NAME: SHILA COWART [id number] at this time. No evidence of cortical abnormalit ies or focal osteopenia associated with this, indicating acute osteomyel itis at this point. PHYSICAL EXAMINATION: GENERAL: The patient is otherwise resting comfor tably in bed. He denies any chest pain. No palpitations. No nausea, vomiting, or diarrhea as stated above. EXTREMITIES: Examination of the lower extremity demonstrated open ulcers on the plantar aspect of bilateral hallux with fully gr anulated base. No signs of drainage, no signs of cellul itis associated with these hallux ulcers. They were noted to be fairly clean. Positive tenderness up on by palpation despite of neuropathy of diabetes, but loss of prot ective sensation on the plantar aspect of bilateral foot. ASSESSMENT: At this time, bi lateral hallux ulcers, diabetic polyneuropathy, and morbid obesity. TREATMENT PLAN: At this time, continue with the local wound care. We will order Iodosorb to the wounds at this poi nt and monitor his progress during the stay here in the hospital. The surgical intervention may be a consideration in the future once the patient becomes more stable and this will be discussed with the patient. This may entitle open surgery and f usion of the metatarsophalangeal joint area in order to preve nt further ulceration in this area. We thank Dr. Duran for allowing me to participat e in this case. We will continue with local wound care at this time and monitor his progress and plan further. Dictated By: Reji Garcia DPM WT: CON:ALICIA/ELIAS/RAMIREZ Conf#: [id number]/DID#: [id number] Authenticated by Reji Garcia DPM On 12/04/2018 01:28:18 PM Electronically Signed by Reji Garcia on 0 12/04/18 at 1328 PATIENT NAME: SHILA COWART [id number] 5029-02-26 02:26:00-00:00 [id number] [facility] [address] [place], [place], [address] PATIENT NAME: SHILA COWART ADMIT DATE: 12/01 ACCOUNT NO: [id number] ROOM NO: [facility] AGE: 37 REPORT TYPE: HISTORY AND PHYSICAL SEX: M ADMITTING PHYSICIAN:Keny Duran MD ATTENDING PHYSICIAN:Keny Duran MD ADMISSION DATE: 12/01/2018 HISTORY OF PRESENT ILLNESS: This is a 37-year-ol d male who patient presented to the Emergency Department with chief complaint s of fever, generalized body weakness, and body aches. The patient also repor ts nonhealing ulcers to the bilateral great toes. In the emergency room, the patient's white cell count was unremarkable. He was also influenza A and B negative. The patient's throat culture was still pending at this time. I reviewed the patient's vital signs and he had a max temperature of 101.1 degr ees Fahrenheit upon presentation. The patient was initially tachycar dic, but did respond well to IV fluid challenges. Laboratory review with unre markable lactic acid and unremarkable procalcitonin. However, his glucose was significantly elevated at 342. X-rays were performed of bilateral feet, wh ich showed no evidence of any osteomyelitis to the bilateral great toes. The c hest x-ray then was read as having an asymmetrical opacity to the right lung base. However, it appears to be more of an atelectasis than an actual infiltr ate. The patient is now admitted to the care of the hospitalist service as he has no local PCP. PAST MEDICAL HISTORY: 1. Diabetes mellitus. 2. Morbid obesity. 3. Hypertension. PAST SURGICAL HISTORY: Denies surgical history. ALLERGIES: THE PATIENT IS ALLERGIC TO VANCOMYCIN . SOCIAL HISTORY: The patient denies any history of tobacco, or illicit drug use. Reports occasional alcohol use. HOME MEDICATIONS: Please see home medication nakia lopez REVIEW OF SYSTEMS: Twelve-point review of system s was performed and pertinent symptomology mentioned in HPI. All other systems were assessed and nonpertinent. PHYSICAL EXAMINATION: VITAL SIGNS: Current temperature is 98.2 degrees Fahrenheit, heart rate 92, respiration 20, blood pressure 133/83, 96% satur ation on room air. GENERAL: Reveals a morbidly obese male, in no ac bertha distress at this time. HEENT: Head atraumatic and normocephalic. Moist mucous membranes. Anicteric sclerae. PATIENT NAME: SHILA COWART [id number] NECK: Trachea midline. PULMONARY: Breath sounds are clear to auscultati on. No rhonchi or wheezing. CARDIAC: S1, S2. No rubs or gallops. NEUROLOGIC: Cranial nerves II through XII intact . No focal deficits. GASTROINTESTINAL: Abdomen is soft and nontender. Normal bowel sounds. No guarding or rigidity. MUSCULOSKELETAL: The patient has bilater al ulcers to the bilateral great toes. They do appear dusky in color. The patient also has swelling to the bilateral lower extremities with multiple varicosities aravind aterally. GENITOURINARY: No flank tenderness. PSYCHIATRIC: The patient is calm and cooperative . Normal affect. LABORATORY DATA: White cell count 8.6 with hemog lobin 14.2, hematocrit 41.7, and platelet count 177,000. Coags unremarkable. Urine shows greater than 1000 glucose. Calcium 1.15. Potassium of 4, chloride 100, BUN 19, creatinine 0.7, glucose 342. A1c 9.6, lactic acid 1.61. Procalci tonin 0.05. RADIOLOGICAL DATA: X-ray of bilateral feet shows the patient to have soft tissue swelling on both great toes consi stent with ulcerations. No evidence of any osteomyelitis. Chest x-ray shows the patient to have asymmetric opacity in the right lower lobe. Howeve r, it does appear to be more of an atelectasis than an actual infiltrate. IMPRESSION: 1. Uncontrolled diabetes mellitus. 2. Sepsis secondary to bilateral lower extremity ulcers. 3. Obstructive sleep apnea. 4. Obesity hypoventilation syndrome. PLAN: 1. The patient has been admitted to the care of the hospitalist service. 2. I started the patient on a regimen of clindam ycin and Zosyn. Pharmacy consulted for appropriate dosing. 3. Start the patient on DVT and peptic ulcer pro phylaxis. 4. We will obtain blood cultures. 5. Hydrate the patient with NS at 75 ml an hour. 6. Start the patient on insulin sliding scale. 7. We have consulted podiatry for evaluation of patient's ulcers. 8. Order bilateral lower extremity arterial and venous Dopplers. 9. Further recommendations as per podiatry and w ound care team. Dictated By: Sunday Mendoza NP for Keny Duran MD WT: HP:ALICIA/LOVELY/RAMIREZ Conf#: [id number]/DID#: [id number] Authenticated and Edited by Sunday Mendoza NP On 12/02/18 9:16:57 PM Authenticated and Edited by Keny Duran MD On 12/04/18 10:26:10 AM PATIENT NAME: SHILA COWART [id number] Electronically Signed by Keny Duarn MD o n 12/04/18 at 1029 at 1029 PATIENT NAME: SHILA COWART [id number] 2018-12-01 18:45:00-00:00 [facility] EMERGENCY PROVIDER REPORT REPORT#:[id number] REPORT STATUS: Signed DATE:12/01/18 TIME: 1844 PATIENT: SHILA COWART UNIT #: [id number] ROOM/BED: VR327-B AGE: 37 SEX: M PCP PHYS: Keny Duran MD SERVICE AUTHOR: Xavier Maguire MD * ALL edits or amendments must be made on the [employer]/computer document * HPI-Fever General Confirmed Patient Yes Patient Type New patient Initial Greet Date/Time 12/01/18 1837 PCP No PCP Presentation Chief Complaint fever Hx Obtained From Patient )( Onset Occurred Today Symptom Duration Since onset Progression since Onset Gradually worsening Location Head, Throat Radiation Does not radiate Associated with Reports: Chills, Headache, Myalgia, Sore throat, Vomiting. Denies: Abdominal pain, Back pain, Chest pain, Cough, non-producti ve, Diarrhea, Mental status change, Rash, Shortness of breath, Sputum produc tion. Context Related History Reports: Diabetes mellitus. Immunization Status Not Up to Date Seasonal influenza Free Text HPI Notes Free Text HPI Notes 37 year old male presents to ED for evaluation o f a fever. Pt states that he started feeling ill 1500 today with fever, chill s and body aches. He reports that symptoms have since worsened with a sore th roat, nasal congestion and headache. Pt notes having na usea and vomiting on arrival but denies cough, SOB, chest pain, diarrhea, abdominal pain or any othe r symptoms. Pt provides that he has two ulcers on shari th feet that he has been caring for at home. Temperature of 101.1F noted in ED. Portions of this section were scribed by Alison Whitfield on 12/01/18 at 2114 Review of Systems ROS Statements All systems rev neg except as marked. Focused Review of Systems Constitutional Reports: Chills, Fever. Ears/Nose/Throat Reports: Nasal congestion, Sore throat. Respiratory Denies: Cough, non-productive, Shortness of marciano th. Cardiovascular Denies: Chest pain. GI Reports: Nausea, Vomiting. Denies: Abdominal sudarshan n, Diarrhea. Musculoskeletal Reports: Myalgia. Neurologic Reports: Headache. Denies: Change LOC, Confusion , Dizziness, Generalized weakness, Lightheaded, Numbness, Seizure, Syncop e. Portions of this section were scribed by Alison Whitfield on 12/01/18 at 1854 Past Medical History - Adult Stated Complaint FEVER, BODY ACHES, WEAKNESS, PA IN TO RIGHT L Allergies Coded Allergies: vancomycin (Severe, swelling 12/01/18) Home Medications Reported Medications GABAPENTIN (NEURONTIN) 600 MG PO TID metFORMIN (GLUCOPHAGE) 1,000 MG PO BID CARVEDILOL (COREG) 12.5 MG PO BID EMPAGLIFLOZIN (JARDIANCE) 10 MG PO DAILY Review of Nursing Notes Rev avail, and agree Past Medical History: Reports: Diabetes mellitus, Pressure ulcer (bila teral great toes). Additional Surgical History osteotomy of bilateral legs Smoking status for patients 13 years old or olde r: Never Smoker Other Social History Local resident, Good social support Portions of this section were scribed by Alison Whitfield on 12/01/18 at 203 Physical Exam Vital Signs Vital Signs First Documented: Result Date Time Pulse Ox 95 12/01 1822 B/P 168/75 12/01 1823 B/P Mean 106 12/01 1822 Temp 38.4 12/01 1822 Pulse 115 12/01 1822 Resp 18 12/01 1822 Last Documented: Result Date Time Pulse Ox 98 12/01 2110 B/P 148/74 12/01 2110 B/P Mean 98 12/01 2110 Temp 37.3 12/01 2110 Pulse 96 12/01 2110 Resp 16 12/01 2110 Review of Vital Signs Reviewed Focused PE General/Const General/Const Awake, Alert, Well developed, Wel l nourished Text/Dict Notes warm to touch Distress/Hydration Distress moderate. Appearance/Presentation Obese, morbidly. MS Neck Neck Supple, No meningismus, Full range of mot ion Resp/Chest Respiratory/Chest Breath sounds NL, Breath soun ds = bilat, No respiratory distress, No rales, No rhonchi, No wheezing Cardiovascular Cardiovascular Heart rate NL, Regular r hythm, Heart sounds NL, Cap refill not delayed, Peripheral circulation NL, Pulses = aravind aterally Lower Ext Edema Bilateral 2+. Abdomen/GI Abdomen/GI Soft, Non-tender, No distention, No palpable mass Skin Skin Color NL, No rash, Warm Color/Condition Diaphoresis present. Neurologic Neurologic Oriented X3, Speech NL, No motor def icits Additional PE MS Lower Extrem Lower Ext/Pelvis/MS Full range of motio n, Non-tender, No erythema, Neurologic intact, Vascular intact Text/Dict Notes 2+ edema to bilateral lower extremities, ulcerated wounds noted to the plantar surfaces of the bilateral great toes; wounds do not appear infected Portions of this section were scribed by Alison Whitfield on 12/01/18 at 2114 Interpretation Diagnostics Lab Results Interpretation Results Laboratory Tests 12/01/18 1853: [Embedded Image Not Available] Laboratory Tests: 12/01 190 Blood Gas VBG Total CO2 (24 - 30 MMOL/L) 24 Ionized Calcium (1.13 - 1.32 mmol/L) 1.15 Chemistry POC Sodium (136 - 145 MMOL/L) 138 POC Potassium (3.5 - 5.1 MMOL/L) 4.0 POC Chloride (98 - 107 MMOL/L) 100 POC BUN (7 - 18 MG/DL) 19 H POC Creatinine (0.6 - 1.0 MG/DL) 0.7 POC Glucose (65 - 99 MG/DL) 342 H POC Lactic Acid Fei (0.40 - 2.00 MMOL/L) 1.61 2.68 H Hematology POC Hgb (13.5 - 17.5 G/DL) 15.0 POC Hct (44.0 - 56.0 %) 44 Urines Urine Color (YELLOW) LIGHT YELLOW Urine Appearance (CLEAR) CLEAR Urine pH (5.0 - 8.5) 6.0 Ur Specific [place] (1.000 - 1.030) 1.010 Urine Protein (NEGATIVE) NEGATIVE Urine Glucose (UA) (NEGATIVE) >=1000 Urine Ketones (NEGATIVE) NEGATIVE Urine Blood (NEGATIVE) NEGATIVE Urine Nitrite (NEGATIVE) NEGATIVE Urine Bilirubin (NEGATIVE) NEGATIVE Urine Urobilinogen (<=1.0 EU/DL) 0.2 EU/DL Ur Leukocyte Esterase (NEGATIVE) NEGATIVE Urine RBC (0 - 5) 0-2 Urine WBC (0 - 5) 2-5 Ur Squamous Epith Cells (NONE SEEN #/lpf) 5-10 12/01 12/01 4933 6215 Chemistry Mean Blood Glucose 228.8 Hemoglobin A1c (4.4 - 6.4 %) 9.6 H Total Bilirubin (0.0 - 1.1 mg/dL) 0.3 Direct Bilirubin (0.05 - 0.3 mg/dL) <0.1 Indirect Bilirubin (0.0 - 0.6 mg/dL) 0.2 AST (15 - 37 U/L) 18 ALT (10 - 30 U/L) 38 H Total Alk Phosphatase (45 - 117 U/L) 98 Troponin I (0.00 - 0.05 ng/mL) <0.02 NT-Pro-B Natriuret Pep (0 - 125 pg/mL) 18 Total Protein (6.4 - 8.2 g/dL) 7.9 Albumin (3.4 - 5.0 g/dL) 3.2 L Globulin (2.3 - 3.5 gm/dL) 4.7 H Albumin/Globulin Ratio (1.5 - 2.2) 0.7 L Lipase (73 - 393 U/L) 120 Procalcitonin (0.00 - 0.05 ng/mL) 0.05 Coagulation INR (0.93 - 1.2) 1.06 PTT ([place]) (23.0 - 32.0 SECONDS) 27.0 PT Patient/Control Mix (9.9 - 11.6 SECONDS) 10 .9 Hematology WBC (4.8 - 10.8 K/mm3) 8.6 RBC (4.2 - 5.4 M/mm3) 4.82 Hgb (13.5 - 17.5 gm/DL) 14.2 Hct (37.1 - 51.5 %) 41.7 MCV (81 - 99 fL) 86.5 MCH (27 - 31 pg) 29.5 MCHC (33 - 37 gm/dL) 34.1 RDW (11.5 - 14.5 %) 13.2 Plt Count (130 - 400 X10(3)) 177 MPV (9.4 - 12.4 fL) 11.0 Neut % (Auto) (51.5 - 79.7 %) 81.9 H Lymph % (Auto) (14 - 40 %) 11.3 L Bowman % (Auto) (4.0 - 10.2 %) 5.7 Eos % (Auto) (0 - 4.1 %) 0.6 Baso % (Auto) (0.1 - 0.7 %) 0.3 Neut # (Auto) (2.5 - 8.6 K/mm3) 7.0 Lymph # (Auto) (1.1 - 3.6 K/mm3) 1.0 L Bowman # (Auto) (0.3 - 0.9 K/mm3) 0.5 Eos # (Auto) (0.0 - 0.4 #) 0.05 Baso # (Auto) (0.0 - 0.2 K/mm3) 0.03 Nucleated RBC % (0 - 0 %) 0 Nucleated RBCs # (Man) (0.00 - 0.20 K/mm3) 0.00 Microbiology: Date/Time Procedure - Status Source Growth 12/01 2044 Urine Culture - RES URINE 12/01 1939 Wound Culture - RES TOE 12/01 1939 Wound Culture - RES TOE 12/01 1858 Influenza Virus Type B Antigen - COM P NASOPHARG 12/01 1858 Influenza Virus Type A Antigen - COM P NASOPHARG 12/01 185 Blood Culture - RES BLOOD 12/01 1852 Blood Culture - RES BLOOD 12/01 184 Group A Streptococcus Screen (DEBRA) - COLB THROAT Recent Impressions: CAT SCAN - CT CHEST W/O CONTRAST 12/01 0534 Report Impression - Status: SIGNED Entered: 12/02/2018 0554 IMPRESSION: 1. No focal consolidation. No other acute abnorm alities on this limited noncontrast examination. Impression By: [email or web address] - LLOYD OGLESBY M.D. RADIOLOGY - XR CHEST 1 V 12/01 2029 Report Impression - Status: SIGNED Entered: 12/01/20182044 IMPRESSION: Asymmetric opacity in the right lung base may re present atelectasis or developing infiltrate. Impression By: [email or web address] Zora DSOUZA M.D. Lab Statement Laboratory studies reviewed and considered in th e medical decision-making. Imaging Statement Radiographic studies reviewed and considered in the medical decision-making. ECG #1 Interpretation Date 12/01/18 Time 184 Interpreted by ED physician NL ECG Interpretation No STEMI Rate 103 ECG Q-T-ST - NM cannot rule out anterior infarct (age undetermined) Rhythm Tachycardia Portions of this section were scribed by Alison Whitfeild on 12/01/18 at 2113 Re-Evaluation MDM Free Text MDM Notes Free Text MDM Notes Pt. presents to the ED with fever and URI symptoms. Pt. met sepsis criteria and found to have RLL PNA. Pt. also with bilat. grea t toe ulcerated wounds but no evidence of infection there. Pt. given IVF and A BX and admitted. Re-Evaluation/Progress Re-Evaluation/Progress 1 Time of Re-Eval 1838 Re-Eval Status Sepsis alert called overhead. Re-Evaluation/Progress 2 Time of Re-Eval 2050 Re-Eval Status Pt weighs 159kg; 30ml/kg of flui ds would be 4.5L which would be excessive for his body habitus. Fluids were l imited to 2L; pending repeat lactic acid before proceeding. Sepsis Reassessment Date of exam: 12/01/18 Time of exam: 2110 Vital signs: T 99.2F, P 96pm, BP 148/74, R 16 / min. on RA (O 2 sats of 98%) Cardiac assessment: normal heart sounds, regular rate rhythm Respiratory assessment: aerating well, clear to auscultation Capillary refill assess: brisk Peripheral pulse assess: Radial pulse: 2+ Dorsalis pedis pulse: 2+ Posterior tibialis pulse: 2+ Skin color: normal color ED Course Medication(s) Ordered Medication(s) Ordered: Hormones And Synthetic Substit Sig/Roberta Start time Last Medication Dose Route Stop Time Status Admin Insulin Human Regular See Dose Q6HR 12/02 0000 DC Insts (1) SUBQ 12/02 2100 Dose Instructions: (1)Insulin Human Regular: ACCUCHECK Q6 HRS THEN IF; BS 151-200= UNIT BS 201-250= UNIT BS 251-300= UNIT BS 301-350= UNIT BS 351-400= UNIT BS >401 = UNIT Portions of this section were scribed by Alison Whitfield on 12/01/18 at 2113 Patient Discharge Departure Vital Signs/Condition Vital Signs First Documented: Result Date Time Pulse Ox 95 12/01 1822 B/P 168/75 12/01 1822 B/P Mean 106 12/01 1822 Temp 38.4 12/01 1822 Pulse 115 12/01 1822 Resp 18 12/01 1822 Last Documented: Result Date Time Pulse Ox 98 12/01 2110 B/P 148/74 12/01 2110 B/P Mean 98 12/01 2110 Temp 37.3 12/01 2110 Pulse 96 12/01 2110 Resp 16 12/01 2110 All vital signs available at the time of this en try have been reviewed. Condition Stable Clinical Impression Clinical Impression Primary Impression: Severe sepsis Secondary Impressions: Hyperglycemia, Right lowe r lobe pneumonia, ULCERATED WOUNDS TO BILATERAL FEET Time of Impression 2033 Disposition Decision Admit Admit Physician Name Keny Duran MD Admit Physician Hospitalist Request Time 2046 Request Date 12/01/18 )( Admission Accepts Yes )( Accepted Time 2113 )( Accepted Date 12/01/18 Call Information pt case discussed with Sunday Mendoza NP taking call for admission Discharge/Care Plan Counseled Regarding Diagnosi s, Lab results, Imaging studies, Need for admission Admit Note I have spoken with the patie nt and/or caregivers. I have explained the patient's condition, diagnoses and chandni atment plan based on the information available to me at this time. I have answered the patient's and/ or caregiver's questions and addressed any concerns. The patient and/or careg jael have as good an understanding of the patient 's diagnosis, condition and treatment plan as can be expected at this point. The patient has been stabilized within the capability of the emergency department. The patient wi ll be transported for further care and management or will be moved to an observation or inpatient service. I have communicated with the staff or medical p rosalioer taking over this patient's care. Critical Care Time Spent (minutes): 45 Services Performed Patient management by me, Jason dillard spent at bedside, Reviewing test results, Reviewing imaging, Discussing conchita ent care, Documentation in record, Time with fam/surrogate Separately billable procedures excluded from jason e. CC Note 1 Total critical care time 45 minutes. Total criti sina care time documented does not include time spent on separately billed proc edures or the services of residents, students, nurses or physician assista nts. I personally saw and examined the patient. I have reviewed all diagno stic interpretations and treatment plans as written. I was present for the cash portions of any procedures performed and the inclusive time noted in any critical care statement. Critical care time includes patient m anagement by me, time spent at the patients bedside, time to review lab and imaging results, discussing patient care, documentation in the medical record, and time spent with the f amily or caregiver. Quality Measures BP F/U for HTN Referred for BP f/u < 4wk, F/u wi th PCP/other doc Sep: Lactate Ordered 18 years or older, Lactate lv ordered in ED Sep: Antibiotics Ordered 18 years or older, Anti biotics ordered in ED Sep: Fluid Resuscitation 18 years or older, Rec' d > 1 L crystalloid Supervising Physician Note Scribe Statement Alison Whitfield, 12/01/181931, scribing for and in the presence of Dr. Maguire. Signed By: Alison Whitfield, 12/01/181931 Provider Scribed Statement I personally performed the s ervices described in this documentation and reviewed the documentation that was dictated to the scrib e(s) in my presence, and it accurately records my words and actions. Xavier Haynes, 12/02/18 Portions of this section were scribed by Alison Whitfield on 12/01/18 at 2048 at 2243 [facility] #:[id number] END OF REPORT
[2023-03-19] MEDS ORDERED: MORPHINE 4 MG/ML SYR ONE ×2 (03:07→05:56)
[2023-03-19] MEDS ORDERED: ONDANSETRON 4 MG/2 ML VIAL ONE ×2 (03:07→05:44)
[2023-03-19] MEDS ORDERED: NA CHLORIDE 0.9% 1,000 ML ONE (03:07)
[2023-03-19] MEDS ORDERED: FAMOTIDINE 20 MG/2 ML VIAL IV ONE (03:07)
[2023-03-19 03:38] LABS: Absolute Lymphocytes (CBC) 0.7 K/uL (0.7-4.9); Hematocrit 45.3 % (39.6-49.0); Lymphocytes % 11.2 % (15.3-44.8); MCV 87.7 fL (80-100); RBC Red Blood Cell Count 5.17 M/uL (4.33-5.43)
[2023-03-19 04:22] LABS: Albumin 3.3 g/dL (3.4-5.0); Bilirubin Total 0.5 mg/dL (0.2-1.0); Potassium 3.7 mEq/L (3.5-5.1); Protein, Total 7.8 g/dL (6.4-8.2); Troponin High Sensitivity 7.6 pg/mL (<58.9)
[2023-03-19 05:48] LABS: Specific Gravity > 1.030 (1.005-1.030); Urine Bacteria None Seen /HPF (<20); Urine Bilirubin NEGATIVE (Negative); Urine Blood Negative (Negative); Urine Clarity Clear (Clear); Urine Color Light-Yellow (Yellow); Urine Glucose 4+ (Over) (Negative); Urine Mucus Slight /HPF (None Seen); Urine Protein TRACE (Negative); Urine RBC <5 /HPF (None Seen); Urine Urobilinogen Normal (Normal)
--- NOTE | 2023-03-19 08:57 | RAD REPORT ---
EXAM DESCRIPTION: US - Abdomen Exam Limited - 03/19/2023 8:33 am CLINICAL HISTORY: distended GB COMPARISON: Abdomen Pelvis W Contrast dated 03/19/2023 FINDINGS: The gallbladder demonstrates no gallstones. No pericholecystic fluid or gallbladder wall t hickening. The common bile duct is normal measuring 5 mm. The liver demonstrates no findings of intrahepatic biliary dilatation. Increased echogenicity liver c onsistent with hepatic steatosis. IMPRESSION: Negative for cholelithiasis or evidence of acute cholecystitis. Hepatic steatosis.
--- NOTE | 2023-03-19 10:08 | EDPHYS ---
Physician Documentation [facility] Name: Addy Quintana Jr Age: 42 yrs Sex: Male : 1980 Arrival Date: 03/19/2023 Time: 02:15 Bed 8 Private MD: ED Physician Ralph Mueller HPI: 03/19 04:11 This 42 yrs old Male presents to ER via Wheelchair with complaints of rt Abdominal Pain, Vomiting, Chest Tightness. 04:11 Present to the ED with nausea, vomiting, epigastric pain starting about 6 PM yesterday. rt It does radiate to the chest. Reports nausea, vomiting. Denies diarrhea, constipation. Denies other acute complaints at this time. Symptoms are aching nature, nonradiating otherwise, no other aggravating or alleviating factors. Symptoms are moderate severity.. Historical: - Allergies: 02:52 VANCOMYCIN AND DERIVATIVES; jb4 - Home Meds: 02:52 gabapentin 600 mg Oral tab 1 tab 3 times per day [Active]; metformin 1,000 mg Oral tab jb4 1 tab 2 times per day [Active]; - PMHx: 02:52 Diabetes - IDDM; DVT; Hypercholesterolemia; Hypertension; neuropathy; jb4 - PSHx: 02:52 Dion knee sx; jb4 - Immunization history:: Adult Immunizations up to date. - Social history:: Smoking status: Patient denies any tobacco usage or history of. Patient uses alcohol, occasionally. - Family history:: not pertinent. ROS: 04:11 Constitutional: Negative for fever, chills, and weight loss, Respiratory: Negative for rt shortness of breath, cough, wheezing, and pleuritic chest pain, MS/Extremity: Negative for injury and deformity, Skin: Negative for injury, rash, and discoloration, Neuro: Negative for headache, weakness, numbness, tingling, and seizure, Psych: Negative for depression, anxiety, suicide ideation, homicidal ideation, and hallucinations. 04:11 Cardiovascular: Positive for chest pain, Negative for edema. 04:11 Abdomen/GI: Positive for abdominal pain, nausea and vomiting. Exam: 04:11 Constitutional: This is a well developed, well nourished patient who is awake, alert, rt and in no acute distress. Head/Face: Normocephalic, atraumatic. Chest/axilla: Normal chest wall appearance and motion. Nontender with no deformity. No lesions are appreciated. Cardiovascular: Regular rate and rhythm with a normal S1 and S2. No gallops, murmurs, or rubs. Normal PMI, no JVD. No pulse deficits. Respiratory: Lungs have equal breath sounds bilaterally, clear to auscultation and percussion. No rales, rhonchi or wheezes noted. No increased work of breathing, no retractions or nasal flaring. Skin: Warm, dry with normal turgor. Normal color with no rashes, no lesions, and no evidence of cellulitis. MS/ Extremity: Pulses equal, no cyanosis. Neurovascular intact. Full, normal range of motion. Neuro: Awake and alert, GCS 15, oriented to person, place, time, and situation. Cranial nerves II-XII grossly intact. Motor strength 5/5 in all extremities. Sensory grossly intact. Cerebellar exam normal. Normal gait. Psych: Awake, alert, with orientation to person, place and time. Behavior, mood, and affect are within normal limits. 04:11 ECG was reviewed by the Attending Physician. 04:11 Abdomen/GI: Tenderness to the epigastrium, mild rebound, no guarding, no abdominal distention. Vital Signs: 02:50 BP 134 / 83; Pulse 109; Resp 18; Temp 99.2; Pulse Ox 96% on R/A; Weight 149.69 kg (R); jb4 Height 5 ft. 6 in. (R); 04:05 BP 112 / 67; Pulse 106; Resp 15; Pulse Ox 93% on R/A; jb4 05:00 BP 105 / 64; Pulse 108; Resp 20; Pulse Ox 95% on R/A; jb4 06:00 BP 107 / 63; Pulse 81; Resp 13; Pulse Ox 98% 2 lpm ; jb4 07:30 BP 103 / 62; Pulse 84; Resp 16; Pulse Ox 99% on 2 lpm NC; bp 09:32 BP 101 / 63; Pulse 79; Resp 18; Pulse Ox 99% on R/A; ld1 10:05 BP 127 / 71; Pulse 80; Resp 18; Pulse Ox 99% on R/A; ld1 02:50 Body Mass Index 53.26 (149.69 kg, 167.64 cm) [facility] MDM: 02:38 Patient medically screened. rt 07:14 Transition of care: Care assumed from Merritt Alexis MD. ms3 10:07 Differential diagnosis: Nonspecific abd pain, gastritis, cholecystitis, pancreatitis. ms3 Data reviewed: vital signs, nurses notes, lab test result(s), radiologic studies, and as a result, I will discharge patient. Consideration of Admission/Observation Escalation of care including admission/observation considered. I considered the following discharge prescriptions or medication management in the emergency department Medications were administered in the Emergency Department. See MAR. 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 Counseling: I had a detailed discussion with the patient and/or guardian regarding: the historical points, exam findings, and any diagnostic results supporting the discharge/admit diagnosis, lab results, radiology results, the need for outpatient follow up, to return to the emergency department if symptoms worsen or persist or if there are any questions or concerns that arise at home. Response to treatment: the patient's symptoms have markedly improved after treatment, and as a result, I will discharge patient. Special discussion: Based on the patient's Hx, exam, and Dx evaluation, there is no indication for emergent surgery or inpatient Tx. It is understood by the patient/guardian that if the Sx's persist or worsen they need to return immediately for re-evaluation. 03/19 02:43 Order name: CBC with Diff; Complete Time: 03:44 rt 03/19 02:43 Order name: CMP; Complete Time: 04:26 rt 03/19 02:43 Order name: Lipase; Complete Time: 04:26 rt 03/19 02:43 Order name: Urinalysis w/ reflexes; Complete Time: 05:49 rt 03/19 02:43 Order name: Troponin High Sensitivity; Complete Time: 04:26 rt 03/19 02:43 Order name: CT Abd/Pelvis - IV Contrast Only rt 03/19 02:43 Order name: Chest Single View XRAY rt 03/19 06:03 Order name: US Abdomen Limited; Complete Time: 10:05 rt 03/19 02:43 Order name: EKG; Complete Time: 02:44 rt 03/19 02:43 Order name: IV Saline Lock; Complete Time: 03:08 rt 03/19 02:43 Order name: Labs collected and sent; Complete Time: 03:08 rt 03/19 02:43 Order name: EKG - Nurse/Tech; Complete Time: 03:08 rt EC:11 Rate is 107 beats/min. Rhythm is regular, Normal Sinus Rhythm with No ectopy. QRS [place] rt is Normal. HI interval is normal. QRS interval is normal. QT interval is normal. No Q waves. T waves are Normal. No ST changes noted. Interpreted by me. Administered Medications: 03:10 Drug: NS 0.9% IV 1000 ml Route: IV; Rate: 1 bolus; Site: right antecubital; jb4 03:10 Drug: Famotidine IVP 20 mg Route: IVP; Site: right antecubital; jb4 03:10 Drug: Ondansetron IVP 4 mg Route: IVP; Site: right antecubital; jb4 03:10 Drug: morphine IVP or IV 4 mg Route: IVP; Infused Over: 4 mins; Site: right antecubital;jb4 05:44 Drug: Ondansetron IVP 4 mg Route: IVP; Site: right antecubital; jb4 10:41 Follow up: Response: No adverse reaction bp 05:51 Drug: morphine IVP or IV 4 mg Route: IVP; Infused Over: 4 mins; Site: right antecubital;jb4 10:41 Follow up: Response: No adverse reaction bp Disposition Summary: 03/19/23 10:07 Discharge Ordered Location: Home ms3 Condition: Stable ms3 Diagnosis - Upper abdominal pain, unspecified ms3 Followup: ms3 - With: Thiago Sanchez DO - When: 2 - 3 days - Reason: Recheck today's complaints Discharge Instructions: - Discharge Summary Sheet ms3 - Abdominal Pain, Adult ms3 Forms: - Medication Reconciliation Form ms3 - Thank You Letter ms3 - Antibiotic Education ms3 - Prescription Opioid Use ms3 Signatures: Dispatcher [employer] EDDonnie Long, GÓMEZ RN jb4 Ralph Mueller DO DO ms3 Merritt Alexis MD MD rt Adolfo Mathis RN bp
--- NOTE | 2023-03-19 10:08 | ER ---
Nurse's Notes [facility] Name: Addy Quintana Jr Age: 42 yrs Sex: Male : 1980 Arrival Date: 03/19/2023 Time: 02:15 Bed 8 Private MD: Diagnosis: Upper abdominal pain, unspecified Presentation: 03/19 02:50 Chief complaint: Patient states: I am having chest tightness that started about 6pm jb4 yesterday. It starts in the middle of my chest and radiate to the left. I am having epigastric pain and vomiting and diarrhea. Coronavirus screen: At this time, the client does not indicate any symptoms associated with coronavirus-19. Ebola Screen: No symptoms or risks identified at this time. Initial Sepsis Screen: Does the patient meet any 2 criteria? No. Patient's initial sepsis screen is negative. Does the patient have a suspected source of infection? No. Patient's initial sepsis screen is negative. Risk Assessment: Do you want to hurt yourself or someone else? Patient reports no desire to harm self or others. Onset of symptoms was March 18, 2023. Transition of care: patient was not received from another setting of care. 02:50 Method Of Arrival: Wheelchair jb4 02:50 Acuity: FLORENCIO 3 jb4 Triage Assessment: 07:00 General: Appears in no apparent distress. comfortable, Behavior is calm, cooperative, bp appropriate for age. Historical: - Allergies: 02:52 VANCOMYCIN AND DERIVATIVES; jb4 - Home Meds: 02:52 gabapentin 600 mg Oral tab 1 tab 3 times per day [Active]; metformin 1,000 mg Oral tab jb4 1 tab 2 times per day [Active]; - PMHx: 02:52 Diabetes - IDDM; DVT; Hypercholesterolemia; Hypertension; neuropathy; jb4 - PSHx: 02:52 Dion knee sx; jb4 - Immunization history:: Adult Immunizations up to date. - Social history:: Smoking status: Patient denies any tobacco usage or history of. Patient uses alcohol, occasionally. - Family history:: not pertinent. Screenin:[address] [facility] ED Fall Risk Assessment (Adult) History of falling in the last 3 months, pf1 including since admission No falls in past 3 months (0 pts). [facility] ED Fall Risk Assessment (Adult) Confusion or Disorientation No (0 pts) Intoxicated or Sedated No (0 pts) Impaired Gait No (0 pts) Mobility Assist Device Used No (0 pt) Altered Elimination No (0 pt) Score/Fall Risk Level 0 - 2 = Low Risk. Abuse screen: Denies threats or abuse. Nutritional screening: No deficits noted. 02:50 Tuberculosis screening: No symptoms or risk factors identified. pf1 Assessment: 03:00 General: Appears in no apparent distress. comfortable, Behavior is calm, cooperative, jb4 appropriate for age. Pain: Complains of pain in chest Pain does not radiate. Pain currently is 8 out of 10 on a pain scale. Neuro: Level of Consciousness is awake, alert, obeys commands, Oriented to person, place, time, situation. Cardiovascular: Patient's skin is warm and dry. Respiratory: Airway is patent Respiratory effort is even, unlabored, Respiratory pattern is regular, symmetrical. GI: Abdomen is non-distended, obese, Reports upper abdominal pain, nausea, vomiting. : No signs and/or symptoms were reported regarding the genitourinary system. EENT: No signs and/or symptoms were reported regarding the EENT system. Derm: Skin is intact, Skin is pink, warm \T\ dry. Musculoskeletal: Circulation, motion, and sensation intact. Range of motion: intact in all extremities. 04:05 Reassessment: Patient appears in no apparent distress at this time. Patient and/or jb4 family updated on plan of care and expected duration. Pain level reassessed. Patient is alert, oriented x 3, equal unlabored respirations, skin warm/dry/pink. 05:00 Reassessment: Patient appears in no apparent distress at this time. No changes from jb4 previously documented assessment. Patient and/or family updated on plan of care and expected duration. Pain level reassessed. 06:00 Reassessment: Pt noted to desat after morphine administration, reports a history of jb4 sleep apnea. PLaced on 2L NC. Now satting 95%. Provider mad aware. 07:00 Reassessment: RECD REPORT FROM LUCI MAGAÑA. 42YO HM P/W ABDOMINAL PAIN, CT RESULTS PENDING.bp 09:00 Reassessment: PT RETURNED FROM US. bp 10:40 Reassessment: DC HOME AMBULATORY. bp Vital Signs: 02:50 BP 134 / 83; Pulse 109; Resp 18; Temp 99.2; Pulse Ox 96% on R/A; Weight 149.69 kg (R); jb4 Height 5 ft. 6 in. (R); 04:05 BP 112 / 67; Pulse 106; Resp 15; Pulse Ox 93% on R/A; jb4 05:00 BP 105 / 64; Pulse 108; Resp 20; Pulse Ox 95% on R/A; jb4 06:00 BP 107 / 63; Pulse 81; Resp 13; Pulse Ox 98% 2 lpm ; jb4 07:30 BP 103 / 62; Pulse 84; Resp 16; Pulse Ox 99% on 2 lpm NC; bp 09:32 BP 101 / 63; Pulse 79; Resp 18; Pulse Ox 99% on R/A; ld1 10:05 BP 127 / 71; Pulse 80; Resp 18; Pulse Ox 99% on R/A; ld1 02:50 Body Mass Index 53.26 (149.69 kg, 167.64 cm) jb4 ED Course: 02:18 Patient arrived in ED. ja2 02:36 Merritt Alexis MD is Attending Physician. rt 02:50 Donnie Goodiwn, RN is Primary Nurse. jb4 02:52 Triage completed. jb4 02:52 Arm band placed on right wrist. jb4 03:04 Chest Single View XRAY In Process Unspecified. EDMS 03:08 CBC with Diff Sent. kd3 03:08 CMP Sent. kd3 03:08 Lipase Sent. kd3 03:08 Troponin High Sensitivity Sent. kd3 05:00 CT Abd/Pelvis - IV Contrast Only In Process Unspecified. EDMS 07:00 Patient has correct armband on for positive identification. Bed in low position. Call bp light in reach. Side rails up X2. 07:00 IV is patent, is intact, 20 R AC. bp 07:13 Attending Physician role handed off by Merritt Alexis MD ms3 07:13 Ralph Mueller DO is Attending Physician. ms3 08:34 US Abdomen Limited In Process Unspecified. EDMS 10:06 Thiago Sanchez DO is Referral Physician. ms3 10:40 No provider procedures requiring assistance completed. IV discontinued, intact, bp bleeding controlled, No redness/swelling at site. Pressure dressing applied. Administered Medications: 03:10 Drug: NS 0.9% IV 1000 ml Route: IV; Rate: 1 bolus; Site: right antecubital; jb4 03:10 Drug: Famotidine IVP 20 mg Route: IVP; Site: right antecubital; jb4 03:10 Drug: Ondansetron IVP 4 mg Route: IVP; Site: right antecubital; jb4 03:10 Drug: morphine IVP or IV 4 mg Route: IVP; Infused Over: 4 mins; Site: right antecubital;jb4 05:44 Drug: Ondansetron IVP 4 mg Route: IVP; Site: right antecubital; jb4 10:41 Follow up: Response: No adverse reaction bp 05:51 Drug: morphine IVP or IV 4 mg Route: IVP; Infused Over: 4 mins; Site: right antecubital;jb4 10:41 Follow up: Response: No adverse reaction bp Medication: 10:40 VIS not applicable for this client. bp Outcome: 10:07 Discharge ordered by . ms3 10:40 Discharged to home ambulatory. bp 10:40 Condition: stable 10:40 Discharge instructions given to patient, Instructed on discharge instructions, follow up and referral plans. Demonstrated understanding of instructions, follow-up care. 10:41 Patient left the ED. bp Signatures: Dispatcher [employer] EDMS Donnie Goodwin RN RN jb4 Adolfo Mathis RN RN Ralph Judge DO DO ms3 Cookie Mueller, GÓMEZ RN ld1 Sun Mooer Kyli RN RN kd3 Merritt Alexis MD MD rt Finley, Pamala, RN RN pf1
[2023-03-19 10:47] VITALS: TEMP 99.2
[2023-03-19 10:52] VITALS: O2SAT 99
[2023-03-19 10:54] VITALS: BP 127/71
--- NOTE | 2023-03-19 21:23 | RAD REPORT ---
EXAM DESCRIPTION: CT - Abdomen Pelvis W Contrast - 03/19/2023 6:48 am CLINICAL HISTORY: The patient is 42 years old and is Male; ABD PAIN TECHNIQUE: Axial computed tomography images of the abdomen and pelvis with intravenous contrast. S agittal and coronal reformatted images were created and reviewed. This CT exam was performed using one or more of the following dose reduction techniques: automated exposure control, adjustment of t he mA and/or kV according to patient size, and/or use of iterative reconstruction technique. COMPARISON: CT abdomen pelvis August 18, 2022. FINDINGS: Lung bases: Unremarkable. No mass. No consolidation. ABDOMEN: Liver: Enlarged fatty liver. Gallbladder and bile ducts: Distended gallbladder without calcified stones visualized. No ductal dilation. Pancreas: No findings to suggest acute pancreatitis. No mass visualized. No ductal dilation. Spleen: Unremarkable. No splenomegaly. Adrenals: Unremarkable. No mass. Kidneys and ureters: Unremarkable. No solid mass. No hydronephrosis. Stomach and bowel: No bowel dilatation or obstruction. No bowel wall thickening. Stomach is nearl y empty. PELVIS: Appendix: The visualized appendix is normal. No pericecal inflammation to suggest acute appendici tis. Bladder: Unremarkable. No mass. Reproductive: Unremarkable as visualized. ABDOMEN and PELVIS: Intraperitoneal space: Unremarkable. No free air. No significant fluid collection. Bones/joints: Disc protrusions at L2-3 and L3-4. Mild to moderate central canal stenosis L3-4. No acute fracture. No dislocation. Soft tissues: Unremarkable. Vasculature: Unremarkable. No abdominal aortic aneurysm. Lymph nodes: No pathologically enlarged lymph nodes. IMPRESSION: 1. Distended gallbladder without calcified stones visualized. 2. Enlarged fatty liver. Electronically signed by: Marta Vaughan MD 03/19/2023 5:57 AM CDT Due to temporary technical issues with the PACS/Fluency reporting system, reports are being signed by the in house radiologists without review as a courtesy to insure prompt reporting. The interpreting radiologist is fully responsible for the content of the report.
--- NOTE | 2023-03-19 21:25 | RAD REPORT ---
EXAM DESCRIPTION: RAD - Chest Single View - 03/19/2023 3:02 am CLINICAL HISTORY: The patient is 42 years old and is Male; CHEST PAIN TECHNIQUE: Frontal view of the chest. COMPARISON: No relevant prior studies available. FINDINGS: Lungs: Mildly prominent interstitial markings. No consolidation. Pleural space: Unremarkable. No pneumothorax. Heart: Unremarkable. Mediastinum: Unremarkable. Bones/joints: Disc space narrowing with degenerative endplate changes in the spine. IMPRESSION: Mildly prominent interstitial markings. No consolidation. Electronically signed by: Giovanni Irene MD 03/19/2023 3:15 AM CDT Due to temporary technical issues with the PACS/Fluency reporting system, reports are being signed by the in house radiologists without review as a courtesy to insure prompt reporting. The interpreting radiologist is fully responsible for the content of the report.
--- NOTE | 2023-03-20 08:20 | EKG ---
Test Date: 2023-03-19 Test Time: 02:43:46 Heating Repair Technician: KARINA MEASUREMENT RESULTS: Intervals: Rate: 107 ID: [id number] QRSD: 88 QT: 338 QTc: 451 [place]: P: 28 ID: [id number] QRS: -25 T: 22 INTERPRETIVE STATEMENTS: Sinus tachycardia Otherwise normal ECG Compared to ECG 12/22/2022 10:10:52 Sinus rhythm no longer present Electronically Signed On 03-20-23 08:18:02 CDT by Edy Levy
== END 2023-03-19 10:41 | disposition home or self-care (01) ==
LOC: ER 02:15
DX: R10.13 Epigastric pain (principal)
CPT/HCPCS: 36415; 71045; 74177; 76705; 80053; 81001; 83690; 84484; 85025; 93005; 96374; 96375; 99284; J2405; J7030; Q9967

== ENCOUNTER 2023-09-17 07:22 | Emergency (ER) | payer SELFPAY ==
--- OUTSIDE RECORDS SUMMARY | 2023-09-17 07:25 | XMS REPORT | Continuity of Care Document ---
Author Name Unknown Address [address] [facility] [address] [place] [address] [facility] thconnect Address [address] [facility] [address] [place] [address] Care Team Providers Care Applications Developer Name Role Phone Unavailable Unavailable Unavailable Payers Payer Name Policy Type Policy Number Effective Date Expirati on Date Source Allergies, Adverse Reactions, Alerts Allergy Name Allergy Type Status Severity Reaction(s) Onset Date Inactive Date Treating Clinician Comments Source No Allergy Informat ion Availabl e DA Active U 12-01 00:00: 00 [facility] vancomyc in DA Active SV 12-01 00:00: 00 [facility] Results Test Description Test Time Test Comments Results Result Co mments Source BASIC METABOLIC [id number] 05:36:00* Test Item Value Reference Range Interpretation Comme nts SODIUM (test code = NA) 138 mmol/L 136-145 N POTASSIUM (test code = K) 3.9 mmol/L 3.5-5.1 N CHLORIDE (test code = CL) 105 mmol/L 98-113 N CARBON DIOXIDE (test code = CO2) 28 mmol/L 21-32 N GLUCOSE (test code = GLU) 208 mg/dL 65-99 H BLOOD UREA NITROGEN (test code = BUN) 19 mg/dL 7-18 H GLOMERULAR FILTRATION RATE (test code = GFR) 114 Reporting units: ml/min/1.73m\S\2 (Modified MDRD Formula)If age < 18 years, GFR is not applicable. KD/DOQI Clinical Practice Guidelines: Stage 1: Kidney damage w/normal or increased GFR >90Stage 2: Kidney damage w/mild decrease in GFR 60 - 89Stage 3: Moderate decrease in GFR 30 - 59Stage 4: Severe decrease in GFR 15 - 29Stage 5: Kidney failure < 15 (or dialysis) CREATININE (test code = CREAT) 0.8 mg/dL 0.6-1.0 N CALCIUM (test code = CA) 8.2 mg/dL 7.8-10.9 N [id number] 05:01:00* Test Item Value Reference Range Interpretation Comme nts GLUBED (test code = GLUBED) 185 mg/dL 70-110 H CBC W/AUTO [id number] 04:37:00* Test Item Value Reference Range Interpretation Comme nts WHITE BLOOD CELL (test code = WBC) 3.9 K/mm3 4.8-10.8 L RED BLOOD CELL (test code = RBC) 4.66 M/mm3 4.2-5.4 N HEMOGLOBIN (test code = HGB) 13.5 gm/DL 13.5-17.5 N HEMATOCRIT (test code = HCT) 40.9 % 37.1-51.5 N MEAN CELL VOLUME (test code = MCV) 87.8 fL 81-99 N MEAN CELL HGB (test code = MCH) 29.0 pg 27-31 N MEAN CELL HGB CONCETRATION ( test code = MCHC) 33.0 gm/dL 33-37 N RED CELL DISTRIBUTION WIDTH (test code = RDW) 13.3 % 11.5-14.5 N PLATELET COUNT (test code = PLT) 139 X10(3) 130-400 N MEAN PLATELET VOLUME (test c ode = MPV) 10.9 fL 9.4-12.4 N NEUTROPHIL % (test code = NT%) 48.5 % 51.5-79.7 L IMMATURE GRANULOCYTE % (test code = IG%) 0.300 % 0.108-0.322 N LYMPHOCYTE % (test code = LY%) 31.2 % 14-40 N MONOCYTE % (test code = MO%) 16.2 % 4.0-10.2 H EOSINOPHIL % (test code = EO%) 3.3 % 0-4.1 N BASOPHIL % (test code = BA%) 0.5 % 0.1-0.7 N NUCLEATED RBC % (test code = NRBC%) 0 % 0-0 N NEUTROPHIL # (test code = NT#) 1.9 K/mm3 2.5-8.6 L IMMATURE GRANULOCYTE # (test code = IG#) 0.010 K/mm3 0.0052-0.0224 N LYMPHOCYTE # (test code = LY#) 1.2 K/mm3 1.1-3.6 N MONOCYTE # (test code = MO#) 0.6 K/mm3 0.3-0.9 N EOSINOPHIL # (test code = EO#) 0.13 # 0.0-0.4 N BASOPHIL # (test code = BA#) 0.02 K/mm3 0.0-0.2 N NUCLEATED RBC # (test code = NRBC#) 0.00 K/mm3 0.00-0.20 N [id number] 20:40:00* Test Item Value Reference Range Interpretation Comme nts GLUBED (test code = GLUBED) 256 mg/dL 70-110 H [id number] 17:24:00* Test Item Value Reference Range Interpretation Comme nts GLUBED (test code = GLUBED) 244 mg/dL 70-110 H [id number] 11:31:00* Test Item Value Reference Range Interpretation Comme nts GLUBED (test code = GLUBED) 272 mg/dL 70-110 H - DUP LE ART [id number] 09:44:00Camp[facility]: [facility] 1980 Age[facility]S: 37[facility]M [address] [facility] Unit #: [id number] Loc: [address] [place], [place] [address] Phys: Keny Duran MD Acct: [id number] Dis Date: Status: ADM IN PHONE #: [phone] Exam Date: 12/02/2018 0339 FAX #: [phone] Reason: diabetic ulcers EXAMS: CPT CODE: [id number] MIO CHAWLA ARAVIND [address] HISTORY: Ulcers TECHNIQUE:Grayscale B-mode, color-flow, and spectral Doppler analysis of the lower extremity arterial vasculature was performed. COMPARISON: None available time of interpretation. FINDINGS: Right lower extremity: Triphasic and biphasic waveforms are demonstrated throughout the right lower extremity arterial s tructures Left lower extremity: Probably triphasic and biphasic waveforms are seen involving the left lower extremity arterial structures with monophasic waveforms involving the posterior tibial artery however triphasic waveforms are seen involving the distal anterior tibial artery and dorsalis pedis artery. IMPRESSION: 1. Scattered atherosclerotic plaque demonstrated. No area of long segment occlusion or high-grade flow limiting stenosis. at 0961 Reported and signed by: LLOYD OGLESBY M.D. Facility ACR Accreditation for Ultrasound -November 2011 CC: Keny Duran MD; Sunday Mendoza NP Technologist: SANDY CASTRO RDMS Transcribed Date/Time/By: 12/02/2018 (0944) : By: [email or web address] Orig Print D/T: S: 12/02/2018 (4842) PAGE 1 Signed ReportCOMPREHENSIVE METABOLIC [id number] 06:17:00* Test Item Value Reference Range Interpretation Comme nts SODIUM (test code = NA) 136 mmol/L 136-145 N POTASSIUM (test code = K) 4.0 mmol/L 3.5-5.1 N CHLORIDE (test code = CL) 102 mmol/L 98-113 N CARBON DIOXIDE (test code = CO2) 27 mmol/L 21-32 N GLUCOSE (test code = GLU) 196 mg/dL 65-99 H BLOOD UREA NITROGEN (test code = BUN) 16 mg/dL 7-18 N GLOMERULAR FILTRATION RATE (test code = GFR) 133 Reporting units: ml/min/1.73m\S\2 (Modified MDRD Formula)If age < 18 years, GFR is not applicable. KD/DOQI Clinical Practice Guidelines: Stage 1: Kidney damage w/normal or increased GFR >90Stage 2: Kidney damage w/mild decrease in GFR 60 - 89Stage 3: Moderate decrease in GFR 30 - 59Stage 4: Severe decrease in GFR 15 - 29Stage 5: Kidney failure < 15 (or dialysis) CREATININE (test code = CREAT) 0.7 mg/dL 0.6-1.0 N TOTAL PROTEIN (test code = PROT) 7.5 g/dL 6.4-8.2 N ALBUMIN (test code = ALB) 3.0 g/dL 3.4-5.0 L GLOBULIN (test code = GLOB) 4.5 gm/dL 2.3-3.5 H ALBUMIN/GLOBULIN RATIO (test code = A/G) 0.7 1.5-2.2 L CALCIUM (test code = CA) 8.0 mg/dL 7.8-10.9 N BILIRUBIN TOTAL (test code = BILT) 0.5 mg/dL 0.0-1.1 SGOT/AST (test code = AST) 15 U/L 15-37 N Reporting units: International Units/L SGPT/ALT (test code = ALT) 31 U/L 10-30 H Reporting units: International Units/L ALKALINE PHOSPHATASE TOTAL (test code = ALKP) 84 U/L 45-117 N [id number] 06:17:00* Test Item Value Reference Range Interpretation Comme nts MAGNESIUM (test code = MAG) 2.0 mg/dL 1.5-2.1 N COMPREHENSIVE METABOLIC [id number] 06:10:00* Test Item Value Reference Range Interpretation Comme nts SODIUM (test code = NA) 136 mmol/L 136-145 N POTASSIUM (test code = K) 4.0 mmol/L 3.5-5.1 N CHLORIDE (test code = CL) 102 mmol/L 98-113 N CARBON DIOXIDE (test code = CO2) 27 mmol/L 21-32 N GLUCOSE (test code = GLU) mg/dL 65-99 BLOOD UREA NITROGEN (test co de = BUN) mg/dL 7-18 GLOMERULAR FILTRATION RATE ( test code = GFR) CREATININE (test code = CREAT) mg/dL 0.6-1.0 TOTAL PROTEIN (test code = PROT) g/dL 6.4-8.2 ALBUMIN (test code = ALB) g/dL 3.4-5.0 GLOBULIN (test code = GLOB) gm/dL 2.3-3.5 ALBUMIN/GLOBULIN RATIO (test code = A/G) 1.5-2.2 CALCIUM (test code = CA) 8.0 mg/dL 7.8-10.9 N BILIRUBIN TOTAL (test code = BILT) mg/dL 0.0-1.1 SGOT/AST (test code = AST) U/L 15-37 SGPT/ALT (test code = ALT) U/L 10-30 ALKALINE PHOSPHATASE TOTAL ( test code = ALKP) U/L 45-117 [id number] 06:10:00* Test Item Value Reference Range Interpretation Comme nts MAGNESIUM (test code = MAG) mg/dL 1.5-2.1 - CT CHEST W/O [id number] 05:51:00Camp[facility]: [facility] 1980 [facility]S: 37/M [address] [facility] Unit #: [id number] Loc: [address] [place], [place] [address] Phys: Keny Duran MD Acct: [id number] Dis Date: Status: ADM IN PHONE #: [phone] Exam Date: 12/01/2018533 FAX #: [phone] Reason: PNA CTDI: DLP: Automated exposure control, iterative reconstruction technique, and/oradjustment of mA and/or kV according to patient's size was utilized fooptimum radiation dose reduction. EXAMS: CPT CODE: [id number] CT CHEST W/O CONTRAST 08382 HISTORY: Pneumonia TECHNIQUE: Axial tomograms through the [...] by: LLOYD OGLESBY M.D. Facility ACR Accreditation forMay 2012 CC: Keny Duran MD; Sunday Mendoza NP Technologist: CLAUDIA KINGSLEY(R)(CT) Transcribed Date/Time/By: 12/02/2018 (05) : By: [email or web address] Orig Print D/T: S: 12/02/2018 (0924) PAGE 1 Signed ReportCBC W/AUTO [id number] 05:44:00* Test Item Value Reference Range Interpretation Comme nts WHITE BLOOD CELL (test code = WBC) 6.2 K/mm3 4.8-10.8 N RED BLOOD CELL (test code = RBC) 4.61 M/mm3 4.2-5.4 N HEMOGLOBIN (test code = HGB) 13.2 gm/DL 13.5-17.5 L HEMATOCRIT (test code = HCT) 40.9 % 37.1-51.5 N MEAN CELL VOLUME (test code = MCV) 88.7 fL 81-99 N MEAN CELL HGB (test code = MCH) 28.6 pg 27-31 N MEAN CELL HGB CONCETRATION ( test code = MCHC) 32.3 gm/dL 33-37 L RED CELL DISTRIBUTION WIDTH (test code = RDW) 13.3 % 11.5-14.5 N PLATELET COUNT (test code = PLT) 144 X10(3) 130-400 N MEAN PLATELET VOLUME (test c ode = MPV) 10.9 fL 9.4-12.4 N NEUTROPHIL % (test code = NT%) 77.1 % 51.5-79.7 N IMMATURE GRANULOCYTE % (test code = IG%) 0.300 % 0.108-0.322 N LYMPHOCYTE % (test code = LY%) 13.3 % 14-40 L MONOCYTE % (test code = MO%) 8.5 % 4.0-10.2 N EOSINOPHIL % (test code = EO%) 0.6 % 0-4.1 N BASOPHIL % (test code = BA%) 0.2 % 0.1-0.7 N NUCLEATED RBC % (test code = NRBC%) 0 % 0-0 N NEUTROPHIL # (test code = NT#) 4.8 K/mm3 2.5-8.6 N IMMATURE GRANULOCYTE # (test code = IG#) 0.020 K/mm3 0.0052-0.0224 N LYMPHOCYTE # (test code = LY#) 0.8 K/mm3 1.1-3.6 L MONOCYTE # (test code = MO#) 0.5 K/mm3 0.3-0.9 N EOSINOPHIL # (test code = EO#) 0.04 # 0.0-0.4 N BASOPHIL # (test code = BA#) 0.01 K/mm3 0.0-0.2 N NUCLEATED RBC # (test code = NRBC#) 0.00 K/mm3 0.00-0.20 N [id number] 05:10:00* Test Item Value Reference Range Interpretation Comme nts GLUBED (test code = GLUBED) 201 mg/dL 70-110 H - DUP VEIN [id number] 04:37:00Campus: [facility]: [facility]: [facility] 1980 [facility]: 37[facility] [address] [facility] Unit #: [id number] Loc: [address] [place], [place] [address] Phys: Keny Duran MD Acct: [id number] Dis Date: Status: ADM IN PHONE #: [phone] Exam Date: 12/02/2018 023 FAX #: [phone] Reason: BLE SWELLING EXAMS: CPT CODE: [id number] DUP VEIN ARAVIND [address] HISTORY: Bilateral swelling TECH NIQUE: Grayscale real-time B-mode imaging with color flow and spectral flow Doppler analysis was performed of the lower extremity. FINDINGS: There is normal flow, augmentation, and compressibility involving the deep venous structures bilaterally. Mildly prominent inguinal lymph nodes are noted bilaterally. IMPRESSION: 1. No evidence of DVT. at 3300 Reported and signed by: LLOYD OGLESBY M.D. Facility ACR Accreditation for Ultrasound -November 2011 CC: Keny Duran MD; Sunday Mendoza NP Technologist: SANDY CASTRO RDMS Transcribed Date/Time/By: 12/02/2018 (0437) : By: [email or web address] Orig Print D/T: S: 12/02/2018 (3684) PAGE 1 Signed Report- XR FOOT 2 VIEWS [id number] 00:17:00FAX: Keny Leonard MD Camps: ER St: ADM FAX: Sunday Mendoza NP [phone] [facility] 1980 Age/S: 37/M [address] [place] [facility] Unit #: [id number] Loc: [address] [place], [place] [address] Phys: Keny Duran MD Acct: [id number] Dis Date: Status: ADM IN PHONE #: [phone] Exam Date: 12/01/2018 230 FAX #: [phone] Reason: GREAT TOE ULCER EXAMS: CPT CODE: [id number] XR FO[place] [address] [place] [address] LOCATION: V20 EXAM: - XR FOOT 2 VIEWS LT, - XR FOOT 2 VIEWS RT HISTORY: GREAT TOE ULCER TECHNIQUE: Frontal and lateral views of the bilateral foot COMPARISON: None.FINDINGS: No evidence of acute fracture or dislocation. Joint spaces within normal limits. Mild dorsal soft tissue swelling is present along the left distal foot in the region of the metatarsals. Arterial vascular calcifications are present bilaterally. Bone marrow mineralization is homogeneous. IMPRESSION: Mild dorsal soft tissue swelling is present along the left distal foot. There is questionof associated 11 mm focus of subcutaneous soft [...] 1 Signed Report- XR FOOT 2 VIEWS [id number] 00:17:00FAX: Keny Leonard MD Camps: ER St: ADM FAX: Sunday Mendoza NP [phone] Name: [facility] : 1980 Age/S: 37/M [address] [place] [facility] Unit #: [id number] Loc: [address] [address] Phys: Keny Duran MD Acct: [id number] Dis Date: Status: ADM IN PHONE #: Exam Date: 12/01/2018 2304 FAX #: [phone] Reason: GREAT TOE ULCER EXAMS: CPT CODE: [id number] XR [address] [place] [address] LOCATION: V20 EXAM: - XR FOOT 2 [...] RT (R)(ARRT); ... Transcribed Date/Time/By: 12/02/2018 (0017) :[email or web address].[email or web address] Orig Print D/T: S: 12/02/2018 (0021) Automated exposure control, iterative reconstruction technique, and/oradjustment of mA and/or kV accordingto patient's size was utilizedfor optimum radiation dose reduction. PAGE 1 Signed Report GLYCOSYLATED HEMOGLOBIN (HA1C)2018-12-01 22:46:00* Test Item Value Reference Range Interpretation Comme nts GLYCOSYLATED HEMOGLOBIN (HA1 C) (test code = GLYHGB) 9.6 % 4.4-6.4 H MEAN BLOOD GLUCOSE [id number] 22:46:00* Test Item Value Reference Range Interpretation Comme nts MEAN BLOOD GLUCOSE CALCULATI ON (test code = MBGCALC) 228.8 URINALYSIS W/O [id number] 21:41:00* Test Item Value Reference Range Interpretation Comme nts UA COLOR (test code = COLU) LIGHT YELLOW YELLOW UA APPEARANCE (test code = APPU) CLEAR CLEAR UA GLUCOSE DIPSTICK (test co de = DGLUU) >=1000 NEGATIVE UA BILIRUBIN DIPSTICK (test code = BILU) NEGATIVE NEGATIVE UA KETONE DIPSTICK (test cod e = KETU) NEGATIVE NEGATIVE UA SPECIFIC GRAVITY (test co de = SGU) 1.010 1.000-1.030 N UA BLOOD DIPSTICK (test code = BTIA) NEGATIVE NEGATIVE UA PH DIPSTICK (test code = JULIO) 6.0 5.0-8.5 N UA PROTEIN DIPSTICK (test co de = PROU) NEGATIVE NEGATIVE UA UROBILINIOGEN DIPSTICK (t est code = URO) 0.2 EU/DL <=1.0 EU/DL UA NITRITE DIPSTICK (test co de = JAI) NEGATIVE NEGATIVE UA LEUKOCYTE ESTERASE DIPSTI CK (test code = LEUU) NEGATIVE NEGATIVE SOURCE: URINESPECIMEN DESCRIPTION: [place]UA [id number] 21:41:00* Test Item Value Reference Range Interpretation Comme nts UA WBC (test code = WBCU) 2-5 0-5 UA RBC (test code = RBCU) 0-2 0-5 UA SQUAMOUS CELLS (test code = SQU) 5-10 #/lpf NONE SEEN SOURCE: URINESPECIMEN DESCRIPTION: CMCURINALYSIS W/O [id number] 21:04:00* Test Item Value Reference Range Interpretation Comme nts UA COLOR (test code = COLU) LIGHT YELLOW YELLOW UA APPEARANCE (test code = APPU) CLEAR CLEAR UA GLUCOSE DIPSTICK (test co de = DGLUU) >=1000 NEGATIVE UA BILIRUBIN DIPSTICK (test code = BILU) NEGATIVE NEGATIVE UA KETONE DIPSTICK (test cod e = KETU) NEGATIVE NEGATIVE UA SPECIFIC GRAVITY (test co de = SGU) 1.010 1.000-1.030 N UA BLOOD DIPSTICK (test code = BITA) NEGATIVE NEGATIVE UA PH DIPSTICK (test code = JULIO) 6.0 5.0-8.5 N UA PROTEIN DIPSTICK (test co de = PROU) NEGATIVE NEGATIVE UA UROBILINIOGEN DIPSTICK (t est code = URO) 0.2 EU/DL <=1.0 EU/DL UA NITRITE DIPSTICK (test co de = JAI) NEGATIVE NEGATIVE UA LEUKOCYTE ESTERASE DIPSTI CK (test code = LEUU) NEGATIVE NEGATIVE SOURCE: URINESPECIMEN DESCRIPTION: [place]UA [id number] 21:04:00* Test Item Value Reference Range Interpretation Comme nts UA WBC (test code = WBCU) 0-5 UA RBC (test code = RBCU) 0-5 SOURCE: URINESPECIMEN DESCRIPTION: CMCURINALYSIS W/O [id number] 21:04:00* Test Item Value Reference Range Interpretation Comme nts UA COLOR (test code = COLU) LIGHT YELLOW YELLOW UA APPEARANCE (test code = APPU) CLEAR CLEAR UA GLUCOSE DIPSTICK (test co de = DGLUU) >=1000 NEGATIVE UA BILIRUBIN DIPSTICK (test code = BILU) NEGATIVE NEGATIVE UA KETONE DIPSTICK (test cod e = KETU) NEGATIVE NEGATIVE UA SPECIFIC GRAVITY (test co de = SGU) 1.010 1.000-1.030 N UA BLOOD DIPSTICK (test code = BITA) NEGATIVE NEGATIVE UA PH DIPSTICK (test code = JULIO) 6.0 5.0-8.5 N UA PROTEIN DIPSTICK (test co de = PROU) NEGATIVE NEGATIVE UA UROBILINIOGEN DIPSTICK (t est code = URO) 0.2 EU/DL <=1.0 EU/DL UA NITRITE DIPSTICK (test co de = JAI) NEGATIVE NEGATIVE UA LEUKOCYTE ESTERASE DIPSTI CK (test code = LEUU) NEGATIVE NEGATIVE SOURCE: URINESPECIMEN DESCRIPTION: CMCUA [id number] 21:04:00* Test Item Value Reference Range Interpretation Comme nts UA WBC (test code = WBCU) 0-5 UA RBC (test code = RBCU) 0-5 SOURCE: URINESPECIMEN DESCRIPTION: MUSCOGEEPOC LACTIC [id number] 20:50:00* Test Item Value Reference Range Interpretation Comme nts POC LACTIC ACID (test code = POCLAC) 1.61 MMOL/L 0.40-2.00 N - XR CHEST 1 [id number] 20:42:00FAX: Xavier Maguire [phone] Camps: ER St: REG Name: [facility] : 1980 Age/S: 37/M [address] [facility] Unit #: [id number] Loc: [place], [place] [address] Phys: Xavier Maguire MD Acct: [id number] Dis Date: Status: REG ER PHONE #: [phone] Exam Date: 12/01/20182039 FAX #: [phone] Reason: code sepsis EXAMS: CPT CODE: [id number] XR CHEST 1 V 56664 LOCATION: V20 EXAM: - XR CHEST 1 V HISTORY: code sepsis TECHNIQUE: Frontal view of the chest. COMPARISON: None. FINDINGS: The lungs are adequately inflated. Asymmetric opacity in the right lung base mayrepresent atelectasis or developing infiltrate. No evidence of pneumothorax or pleural effusion. Normal heart size. Mediastinal contours are within normal limits. Osseous structures are intact. IMPRESSION: Asymmetric opacity in the right lung base may represent atelectasis or developing infiltrate. at 2041 Reported and signed by: ANA MARIA Macedo CC: Xavier Maguire MD Technologist: Keerthi Peraza RT(R)CT(ARRT) Transcribed Date/Aaron e/By: 12/01/2018 (2041) :[email or web address] Orig Print D/T: S: 12/01/2018 (2044) Automated exposure control, iterative reconstruction technique, and/oradjustment of mA and/or kV according to patient's size was utilizedfor optimum radiation dose reduction. PAGE 1 Signed ReportHEPATIC FUNCTION [id number] 19:50:00* Test Item Value Reference Range Interpretation Comme nts TOTAL PROTEIN (test code = PROT) 7.9 g/dL 6.4-8.2 N ALBUMIN (test code = ALB) 3.2 g/dL 3.4-5.0 L GLOBULIN (test code = GLOB) 4.7 gm/dL 2.3-3.5 H ALBUMIN/GLOBULIN RATIO (test code = A/G) 0.7 1.5-2.2 L BILIRUBIN TOTAL (test code = BILT) 0.3 mg/dL 0.0-1.1 N BILIRUBIN DIRECT (test code = BILD) <0.1 mg/dL 0.05-0.3 N BILIRUBIN INDIRECT (test code = BILIND) 0.2 mg/dL 0.0-0.6 N SGOT/AST (test code = AST) 18 U/L 15-37 N Reporting units: International Units/L SGPT/ALT (test code = ALT) 38 U/L 10-30 H Reporting units: International Units/L ALKALINE PHOSPHATASE TOTAL (test code = ALKP) 98 U/L 45-117 N [id number] 19:50:00* Test Item Value Reference Range Interpretation Comme nts LIPASE (test code = LIP) 120 U/L 73-393 N Reporting units: International Units/L NT PRO-BRAIN NATRIURETIC [id number] 19:50:00* Test Item Value Reference Range Interpretation Comme nts NT PRO-BRAIN NATRIURETIC PEP TI (test code = PROBNP) 18 pg/mL 0-125 N [id number] 19:50:00* Test Item Value Reference Range Interpretation Comme nts TROPONIN-I (test code = TROPI) <0.02 ng/mL 0.00-0.05 N <0.05 Normal0.0 6 - 0.39 Consistent with circulating Troponin with possible Myocardial injury.>0.40 Consistent with Myocardial injury extensive enough to conform with AMI as defined by WHO. PROCALCITONIN (PCT)2018-12-01 19:50:00* Test Item Value Reference Range Interpretation Comme nts PROCALCITONIN (PCT) (test co de = PROCAL) 0.05 ng/mL 0.00-0.05 N CHEMISTRY 8 [id number] 19:36:00* Test Item Value Reference Range Interpretation Comme nts IONIZED CALCIUM (test code = CAIABG) 1.15 mmol/L 1.13-1.32 N ISTAT-TCO2 VENOUS (test code = TCO2VP) 24 MMOL/L 24-30 N ISTAT-HEMOGLOBIN (test code = HBP) 15.0 G/DL 13.5-17.5 N ISTAT-HEMATOCRIT (test code = HCTP) 44 % 44.0-56.0 N ISTAT-SODIUM (test code = NAP) 138 MMOL/L 136-145 N ISTAT-POTASSIUM (test code = KP) 4.0 MMOL/L 3.5-5.1 N ISTAT-CHLORIDE (test code = CLP) 100 MMOL/L 98-107 N ISTAT GLUCOSE (test code = GLUP) 342 MG/DL 65-99 H ISTAT-BUN (test code = BUNP) 19 MG/DL 7-18 H BEDSIDE CREATININE (test cod e = CREATBED) 0.7 MG/DL 0.6-1.0 N HEPATIC FUNCTION [id number] 19:36:00* Test Item Value Reference Range Interpretation Comme nts TOTAL PROTEIN (test code = PROT) 7.9 g/dL 6.4-8.2 N ALBUMIN (test code = ALB) 3.2 g/dL 3.4-5.0 L GLOBULIN (test code = GLOB) 4.7 gm/dL 2.3-3.5 H ALBUMIN/GLOBULIN RATIO (test code = A/G) 0.7 1.5-2.2 L BILIRUBIN TOTAL (test code = BILT) 0.3 mg/dL 0.0-1.1 N BILIRUBIN DIRECT (test code = BILD) <0.1 mg/dL 0.05-0.3 N BILIRUBIN INDIRECT (test code = BILIND) 0.2 mg/dL 0.0-0.6 N SGOT/AST (test code = AST) 18 U/L 15-37 N Reporting units: International Units/L SGPT/ALT (test code = ALT) 38 U/L 10-30 H Reporting units: International Units/L ALKALINE PHOSPHATASE TOTAL (test code = ALKP) 98 U/L 45-117 N [id number] 19:36:00* Test Item Value Reference Range Interpretation Comme nts LIPASE (test code = LIP) 120 U/L 73-393 N Reporting units: International Units/L NT PRO-BRAIN NATRIURETIC [id number] 19:36:00* Test Item Value Reference Range Interpretation Comme nts NT PRO-BRAIN NATRIURETIC PEP TI (test code = PROBNP) 18 pg/mL 0-125 N [id number] 19:36:00* Test Item Value Reference Range Interpretation Comme nts TROPONIN-I (test code = TROPI) <0.02 ng/mL 0.00-0.05 N <0.05 Normal0.06 - 0.39 Consistent with circulating Troponin with possible Myocardial injury.>0.40 Consistent with Myocardial injury extensive enough to conform with AMI as defined by WHO. PROCALCITONIN (PCT)2018-12-01 19:36:00* Test Item Value Reference Range Interpretation Comme nts PROCALCITONIN (PCT) (test co de = PROCAL) ng/mL 0.00-0.05 PROTHROMBIN [id number] 19:25:00* Test Item Value Reference Range Interpretation Comments PROTHROMBIN TIME PATIENT (test code = PTP) 10.9 SECONDS 9.9-11.6 N INTERNATIONAL NORMAL RATIO (test code = INR) 1.06 0.93-1.2 N Recommended Ther apeutic PT Ratios For Oral AnticoagualantTherapy. CONDITION INT'L NORMALIZED PT R--------- Prophylaxis of venous thrombosis 2.0 - 3.0in high risk medical or surgicalpatients, treatment of venousthrombosis, prevention of embolism. Prevention of recurrent embolism, 3.0 - 4.5or treatment of patients with mechanicalprosthetic heart valves. IS THE PATIENT ON ANY ANTICOAGULANTS? NTHROMBOPLASTIN TIME [id number] 19:25:00* Test Item Value Reference Range Interpretation Comme nts THROMBOPLASTIN TIME PARTIAL (test code = PTT) 27.0 SECONDS 23.0-32.0 N IS THE PATIENT ON ANY ANTICOAGULANTS? NPOC LACTIC [id number] 19:11:00* Test Item Value Reference Range Interpretation Comme nts POC LACTIC ACID (test code = POCLAC) 2.68 MMOL/L 0.40-2.00 H RESULTS MARLENE LED TO [] [place] [address]/01/18.NMI-MTCRITICA L VALUE READ BACK BY NURSE AND VERIFIED BY TECH? []REFERENCE RANGES FOR: 1) ARTERIAL SAMPLE (0.5-1.6MMOL/L) 2) SPINAL FLUID (0.6-2.2MMOL/L) CBC W/AUTO [id number] 19:08:00* Test Item Value Reference Range Interpretation Comme nts WHITE BLOOD CELL (test code = WBC) 8.6 K/mm3 4.8-10.8 N RED BLOOD CELL (test code = RBC) 4.82 M/mm3 4.2-5.4 N HEMOGLOBIN (test code = HGB) 14.2 gm/DL 13.5-17.5 N HEMATOCRIT (test code = HCT) 41.7 % 37.1-51.5 N MEAN CELL VOLUME (test code = MCV) 86.5 fL 81-99 N MEAN CELL HGB (test code = MCH) 29.5 pg 27-31 N MEAN CELL HGB CONCETRATION ( test code = MCHC) 34.1 gm/dL 33-37 N RED CELL DISTRIBUTION WIDTH (test code = RDW) 13.2 % 11.5-14.5 N PLATELET COUNT (test code = PLT) 177 X10(3) 130-400 N MEAN PLATELET VOLUME (test c ode = MPV) 11.0 fL 9.4-12.4 N NEUTROPHIL % (test code = NT%) 81.9 % 51.5-79.7 H IMMATURE GRANULOCYTE % (test code = IG%) 0.200 % 0.108-0.322 N LYMPHOCYTE % (test code = LY%) 11.3 % 14-40 L MONOCYTE % (test code = MO%) 5.7 % 4.0-10.2 N EOSINOPHIL % (test code = EO%) 0.6 % 0-4.1 N BASOPHIL % (test code = BA%) 0.3 % 0.1-0.7 N NUCLEATED RBC % (test code = NRBC%) 0 % 0-0 N NEUTROPHIL # (test code = NT#) 7.0 K/mm3 2.5-8.6 N IMMATURE GRANULOCYTE # (test code = IG#) 0.020 K/mm3 0.0052-0.0224 N LYMPHOCYTE # (test code = LY#) 1.0 K/mm3 1.1-3.6 L MONOCYTE # (test code = MO#) 0.5 K/mm3 0.3-0.9 N EOSINOPHIL # (test code = EO#) 0.05 # 0.0-0.4 N BASOPHIL # (test code = BA#) 0.03 K/mm3 0.0-0.2 N NUCLEATED RBC # (test code = NRBC#) 0.00 K/mm3 0.00-0.20 N Notes Date/Time Note Provider Source 2018-12-03 14:02:00 [id number] 25-11-26T14:02:00 [facility] ([facility])Discharge SummaryREPORT#:[id number] REPORT STATUS: SignedDATE:12/03/18 TIME: 1402 PATIENT: SHILA COWART UNIT #: [id number]#: [id number] ROOM/BED: VR.327-BDOB: [birth year] AGE: 37 SEX: M ATTEND: Keny Duran MDADM AUTHOR: Edin Cross MD * ALL edits or amendments must be made on the electronic/computer document * PCP PCPPCP:PCP: Keny Duran MD Discharge to: home General InformationDate of admission:Observation Start Date: Date of admission: 12/01/18 Date of discharge: 12/03/18Hospital course:IMPRESSION:1. Uncontrolled diabetes mellitus.2. Sepsis secondary to bilateral lower extremity ulcers.3. Obstructive sleep apnea.4. Obesity hypoventilation syndrome. This is a 37-year-old gentleman with past medical history of hypertension uncontrolled type 2 diabetes mellitus and morbid obesity presents to the emerge department admission 12/01/2018 complaining of fevers generalized body weakness and generalized body aches. Patient also reported nonhealing ulcer to the bilateral great toes. Patient workup upon arrival to the emergency department yielded patient to have influenza a and B screen which was negative though the patient was noted to be febrile size 1 1.1 patient was tachycardic at 115 meeting sepsis criteria which were the patient was admitted to medicine service for further evaluation treatment. Patient WBC count at that time was within normal limits. Patient was started empiric antibody therapy with vancomycin andZosyn later transitioned to clindamycin. Patient's a WBC count did remain within normal limits though did decrease to approximately 0.8 upon discharge. Patient was afebrile throughout hospitalization except for initial presentation. Patient's tachycardia did resolve with aggressive fluid hydration was 70 bpm upon discharge. Patient was evaluated by podiatry service and recommended continued wound care and will continue to follow-up in the outpatient setting for possible surgical intervention at a later date. Patient and family will be taught on continued wound care to be done in the outpatient setting. Patient some discharge denied any new complaints. Patient was able to ambulate without difficulty and was have regular bowel movements. Pt denies any fevers, chills, cough, SOB, CP, Palpitations, Abd. pain, N/V, diarrhea, dysuria, hematuria. Med Rec PCPPCP:PCP: Keny Duran MD Med RecDischarge meds:Continue taking these medications:GABAPENTIN (NEURONTIN) 600 MG TAB 600 MILLIGRAM ORAL THREE TIMES A DAY. metFORMIN (GLUCOPHAGE) 1,000 MG TAB 1,000 MILLIGRAM ORAL TWICE DAILY. CARVEDILOL (COREG) 12.5 MG TAB 12.5 MILLIGRAM ORAL TWICE DAILY. EMPAGLIFLOZIN (JARDIANCE) 10 MG TAB 10 MILLIGRAM ORAL DAILY. Start taking the following new medications:CLINDAMYCIN HCL (CLEOCIN) 150 MG CAP 300 MILLIGRAM ORAL THREE TIMES A DAY. Qty = 30 No Refills Discharge InstructionsDiet: diabeticActivity: as toleratedPrescriptions: on chart, e-prescribeDischarge management: greater than 30 mins Follow-up AppointmentsPCP: PCP: Keny Duran MD Special instructions:ESTABLISH WITH PCP GERSON.Attending Physician: Attending Physician: Keny Duran MD Gljcbcffhk provider 1: Provider 1: Reji Garcia Specialty: OTHER SPECIALTY Phone: [phone] Follow up timeframe: In 1-2 weeks ObjectiveVS/I OLast Documented: Result Date Time Pulse Ox 98 [...] 159 kg Weight General appearance: alert, awake, orientedHead/Eyes: atraumatic, clear cornea, EOMI, normocephalic, normal conjunctiva/scleraENT: moist mucosal membranesCardiovascular: regular rate rhythm, normal heart soundsRespiratory: clear to auscultation, no distress, no tenderness, aerating well, symmetric expansionGI: soft, non-tender, no guarding, no rebound, no distentionExtremities: moves allNeuro/COMPLIANCE QUALITY PERFORMANCE ANALYST: alert, oriented X 3, normal speechSkin: dry, intactWound/incision: Location:WOUND OF BL FEET. CLEAN AND DRY. ResultsFindings/Data:Laboratory Tests: 12/03 12/03 12/03 12/02 12/02 1052 0447 0416 7401 1713Khemistry Sodium (136 - 145 mmol/L) 138 Potassium [...] 244 H Calcium (7.8 - 10.9 mg/dL) 8.2Hematology WBC (4.8 - 10.8 K/mm3) 3.9 L [...] % (Auto) (14 - 40 %) 31.2 Branch % (Auto) (4.0 - 10.2 %) 16.2 H Eos % (Auto) (0 - 4.1 %) 3.3 Baso % (Auto) (0.1 - 0.7 %) 0.5 Neut # (Auto) (2.5 - 8.6 K/mm3) 1.9 L Lymph # (Auto) (1.1 - 3.6 K/mm3) 1.2 Branch # (Auto) (0.3 - 0.9 K/mm3) 0.6 Eos # (Auto) (0.0 - 0.4 #) 0.13 Baso # (Auto) (0.0 - 0.2 K/mm3) 0.02 Nucleated RBC % (0 - 0 %) 0 Nucleated RBCs # (Man) (0.00 - 0.20 K/mm3) 0.00 at 1403 RPT #:[id number] OF REPORTDSDischarge [id number]:02:00VR.[id number] vailable for patient [id number]:03:42 [facility] 2018-12-02 21:18:00 [id number] 25-11-25T21:18:00 [facility] ([facility])Hospitalist Progress NoteREPORT#:[id number] REPORT STATUS: SignedDATE:12/02/18 TIME: 2117 PATIENT: SHILA COWART UNIT #: [id number]#: [id number] [address] [birth year] AGE: 37 SEX: M ATTEND: Keny Duran AUTHOR: Salena Mendoza HIMS MANAGER * ALL edits or amendments must be made on the electronic/computer document * Subjective Free Text Subj NotesFree Subj Notes:PATIENT IS SEEN AND EXAMINED, WITH FAMILY AT BEDSIDE DURING MY VISIT. HE IS AAOX3, ON ROOM AIR, WITH IV FLUID AND ANTIBIOTIC INFUSING. HE HAS NO NEW COMPLAINTS, FOOT PAIN IS WELL CONTROLLED, DENIES CHEST PAIN, SHORTNESS OF BREATH, GI UPSET, COUGH, OR CHILLS. HE IS AFEBRILE TODAY, NO ACUTE EVENTS REPORTED OVER NIGHT PER NURSING STAFF. Objective GeneralVS/I O:Vital Signs: Date Time Temp Pulse Resp B/P B/P Pulse O2 O2 Flow FiO2 Mean Ox Delivery Rate 12/02 2017 [...] kg Weight Weight Standing scale Measurement Method Medications:Active Meds + DC'd Last 24 HrsCadexomer Iodine 1 APPLIC Q48HR TOPICAL Gabapentin 600 MG TID PO Clindamycin HCl/Dextrose 50 ML Q8HR IV Famotidine 20 MG BID PO Mupirocin 1 APPLIC BID NASAL Insulin Human Regular 0 AC HS SUBQ Enoxaparin Sodium 40 MG DAILY@0600 SUBQ Piperacillin Sod/Tazobactam Sod 3.375 GM Q8HR IV Sodium Chloride 100 MLInsulin Human Regular ACCUCHECK Q6 HRS THEN IF; [...] IV Potassium Bicarbonate/Citric Acid 20 MEQ ASDIR PRN FEED-TUBE Potassium Chloride 20 MEQ ASDIR PRN PO Potassium Chloride 100 ML ASDIR PRN IV Potassium Chloride 100 ML ASDIR PRN IV Sodium Chloride 1,000 ML .[id number] IV Tramadol HCl 50 MG Q6H PRN PRN PO Dextrose/Water 50 ML ASDIR PRN IV (DC) Physical ExamGeneral appearance: alert, awake, oriented, no acute distressHead/Eyes: atraumatic, normal conjunctiva/sclera, PERRLAENT: moist mucosal membranesNeck: full range of motion, non-tender, no JVDCardiovascular: normal capillary refill, normal heart sounds, regular rate rhythmRespiratory: aerating well, clear to auscultation, symmetric expansion, no distressAbdomen: non-tender, normal bowel sounds, soft, no distentionGenitourinary: no flank painRectal: deferredExtremities: moves all, normal capillary refillMusculoskeletal: normal inspectionNeuro/COMPLIANCE QUALITY PERFORMANCE ANALYST: alert, oriented X 3, CNII-XII intact, normal speech Considered stroke alert: noGlasgow Coma Score: Ileana Coma Score: Response Value Patient intubated? no Ileana eyes: eyes open spontaneously 4 [place] speech: oriented 5 Ileana motor: obeys commands 6 Total 15 Skin: dry, PLANTAR WOUND BILATERAL GREAT TOE, NO DRAINAGE NOTED.Lymphatics: axilla normal, neck normalPsychiatry: normal affect, normal judgment/insight, normal mood ResultsFindings/Data:Laboratory Tests 12/02 12/02 12/02 12/02 12/02 2035 [...] (Auto) (14 - 40 %) 13.3 L Branch % (Auto) (4.0 - 10.2 %) 8.5 Eos % (Auto) (0 - 4.1 %) 0.6 Baso % (Auto) (0.1 - 0.7 %) 0.2 Neut # (Auto) (2.5 - 8.6 K/mm3) 4.8 Lymph # (Auto) (1.1 - 3.6 K/mm3) 0.8 L Branch # (Auto) (0.3 - 0.9 K/mm3) 0.5 Eos # (Auto) (0.0 - 0.4 #) 0.04 Baso # (Auto) (0.0 - 0.2 K/mm3) 0.01 Nucleated RBC % (0 - 0 %) 0 Nucleated RBCs # (Man) (0.00 - 0.20 K/mm3) 0.00 Microbiology Date/Time Procedure - Status Source Growth 12/02 0515 MRSA Screen - COMP NASAL Radiology data:Recent Impressions:RADIOLOGY - XR FOOT 2 VIEWS LT 12/01 2303 Report Impression - Status: SIGNED Entered: 12/02/201820 IMPRESSION:Mild dorsal soft tissue swelling is present along the left distalfoot. There is question of associated 11 mm focus of subcutaneoussoft tissue gas, correlate for open wound. There is no evidence of an cortical abnormality or focal osteopenia ineither foot to indicate acute osteomyelitis. Impression By: [email or web address] Zora DSOUZA M.D.RADIOLOGY - XR FOOT 2 VIEWS RT 12/01 2303 Report Impression - Status: SIGNED Entered: 12/02/201820 IMPRESSION:Mild dorsal soft tissue swelling is present along the left distalfoot. There is question of associated 11 mm focus of subcutaneoussoft tissue gas, correlate for open wound. There is no evidence of an cortical abnormality or focal osteopenia ineither foot to indicate acute osteomyelitis. Impression By: [email or web address] Zora DSOUZA M.D.ULTRASOUND - DUP VEIN ARAVIND 12/02 0238 Report Impression - Status: SIGNED Entered: 12/02/2018 0441 IMPRESSION: 1. No evidence of DVT. Impression By: [email or web address] Zora OGLESBY M.D.ULTRASOUND - DUP LE ART ARAVIND 12/02 0339 Report Impression - Status: SIGNED Entered: 12/02/2018 0944 IMPRESSION:1. Scattered atherosclerotic plaque demonstrated. No area of longsegment occlusion or high-grade flow limiting stenosis.Impression By: [email or web address] Zora OGLESBY M.D. Diagnosis, Assessment PlanHospital course to date:IMPRESSION:1. Uncontrolled diabetes mellitus.2. Sepsis secondary to bilateral lower extremity ulcers.3. Obstructive sleep apnea.4. Obesity hypoventilation syndrome. PLAN:1. The patient remains admitted to the care of the hospitalist service.2. Continue on a regimen of clindamycin and Zosyn. Pharmacy consulted for appropriate dosing.3. Continue on DVT and peptic ulcer prophylaxis.4. Follow blood cultures.5. Hydrate the patient with NS at 75 ml an hour.6. Continue on insulin sliding scale.7. We have consulted podiatry for evaluation of patient's ulcers.8. Order bilateral lower extremity arterial and venous Dopplers.9. Further recommendations as per podiatry and wound care team.10. Tentative discharge in 24 to 48 hours. at 2126 RPT #:[id number] OF REPORTPRProgress [id number]:18:00VR.[id number] lable for patient [id number]:26:21 [facility] 2018-12-[facility] 21:18:00 [id number] 25-11-25T21:18:00 [facility] ([facility])Hospitalist Progress NoteREPORT#:[id number] REPORT STATUS: SignedDATE:12/02/18 TIME: 2117 PATIENT: SHILA COWART UNIT #: [id number]#: [id number] ROOM/BED: [facility]-BDOB: [birth year] AGE: 37 SEX: M ATTEND: Keny Duran [facility] AUTHOR: Salena Mendoza NP * ALL edits or amendments must be made on the electronic/computer document * Subjective Free Text Subj NotesFree Subj Notes:PATIENT IS SEEN AND EXAMINED, WITH FAMILY AT BEDSIDE DURING MY VISIT. HE IS AAOX3, ON ROOM AIR, WITH IV FLUID AND ANTIBIOTIC INFUSING. HE HAS NO NEW COMPLAINTS, FOOT PAIN IS WELL CONTROLLED, DENIES CHEST PAIN, SHORTNESS OF BREATH, GI UPSET, COUGH, OR CHILLS. HE IS AFEBRILE TODAY, NO ACUTE EVENTS REPORTED OVER NIGHT PER NURSING STAFF. Objective GeneralVS/I O:Vital Signs: Date Time Temp Pulse Resp B/P B/P Pulse O2 O2 Flow FiO2 Mean Ox Delivery Rate 12/02 2017 [...] kg Weight Weight Standing scale Measurement Method Medications:Active Meds + DC'd Last 24 HrsCadexomer Iodine 1 APPLIC Q48HR TOPICAL Gabapentin 600 MG TID PO Clindamycin HCl/Dextrose 50 ML Q8HR IV Famotidine 20 MG BID PO Mupirocin 1 APPLIC BID NASAL Insulin Human Regular 0 AC HS SUBQ Enoxaparin Sodium 40 MG DAILY@0600 SUBQ Piperacillin Sod/Tazobactam Sod 3.375 GM Q8HR IV Sodium Chloride 100 MLInsulin Human Regular ACCUCHECK Q6 HRS THEN IF; [...] IV Potassium Bicarbonate/Citric Acid 20 MEQ ASDIR PRN FEED-TUBE Potassium Chloride 20 MEQ ASDIR PRN PO Potassium Chloride 100 ML ASDIR PRN IV Potassium Chloride 100 ML ASDIR PRN IV Sodium Chloride 1,000 ML .[id number] IV Tramadol HCl 50 MG Q6H PRN PRN PO Dextrose/Water 50 ML ASDIR PRN IV (DC) Physical ExamGeneral appearance: alert, awake, oriented, no acute distressHead/Eyes: atraumatic, normal conjunctiva/sclera, PERRLAENT: moist mucosal membranesNeck: full range of motion, non-tender, no JVDCardiovascular: normal capillary refill, normal heart sounds, regular rate rhythmRespiratory: aerating well, clear to auscultation, symmetric expansion, no distressAbdomen: non-tender, normal bowel sounds, soft, no distentionGenitourinary: no flank painRectal: deferredExtremities: moves all, normal capillary refillMusculoskeletal: normal inspectionNeuro/COMPLIANCE QUALITY PERFORMANCE ANALYST: alert, oriented X 3, CNII-XII intact, normal speech Considered stroke alert: noGlasgow Coma Score: Ileana Coma Score: Response Value Patient intubated? no Ileana eyes: eyes open spontaneously 4 [place] speech: oriented 5 [place] motor: obeys commands 6 Total 15 Skin: dry, PLANTAR WOUND BILATERAL GREAT TOE, NO DRAINAGE NOTED.Lymphatics: axilla normal, neck normalPsychiatry: normal affect, normal judgment/insight, normal mood ResultsFindings/Data:Laboratory Tests 12/02 12/02 12/02 12/02 12/02 2035 [...] (Auto) (14 - 40 %) 13.3 L Branch % (Auto) (4.0 - 10.2 %) 8.5 Eos % (Auto) (0 - 4.1 %) 0.6 Baso % (Auto) (0.1 - 0.7 %) 0.2 Neut # (Auto) (2.5 - 8.6 K/mm3) 4.8 Lymph # (Auto) (1.1 - 3.6 K/mm3) 0.8 L Branch # (Auto) (0.3 - 0.9 K/mm3) 0.5 Eos # (Auto) (0.0 - 0.4 #) 0.04 Baso # (Auto) (0.0 - 0.2 K/mm3) 0.01 Nucleated RBC % (0 - 0 %) 0 Nucleated RBCs # (Man) (0.00 - 0.20 K/mm3) 0.00 Microbiology Date/Time Procedure - Status Source Growth 12/02 0515 MRSA Screen - COMP NASAL Radiology data:Recent Impressions:RADIOLOGY - XR FOOT 2 VIEWS LT 12/01 2303 Report Impression - Status: SIGNED Entered: 12/02/2018 002 IMPRESSION:Mild dorsal soft tissue swelling is present along the left distalfoot. There is question of associated 11 mm focus of subcutaneoussoft tissue gas, correlate for open wound. There is no evidence of an cortical abnormality or focal osteopenia ineither foot to indicate acute osteomyelitis. Impression By: Jenaro DSOUZA M.D.RADIOLOGY - XR FOOT 2 VIEWS RT 12/01 2303 Report Impression - Status: SIGNED Entered: 12/02/2018 002 IMPRESSION:Mild dorsal soft tissue swelling is present along the left distalfoot. There is question of associated 11 mm focus of subcutaneoussoft tissue gas, correlate for open wound. There is no evidence of an cortical abnormality or focal osteopenia ineither foot to indicate acute osteomyelitis. Impression By: Jenaro DSOUZA M.D.ULTRASOUND - DUP VEIN ARAVIND 12/02 0238 Report Impression - Status: SIGNED Entered: 12/02/2018 0441 IMPRESSION: 1. No evidence of DVT. Impression By: AmandaRXPrecious OGLESBY M.D.ULTRASOUND - DUP LE ART ARAVIND 12/02 0339 Report Impression - Status: SIGNED Entered: 12/02/2018 0944 IMPRESSION:1. Scattered atherosclerotic plaque demonstrated. No area of longsegment occlusion or high-grade flow limiting stenosis.Impression By: Nellie OGLESBY M.D. Diagnosis, Assessment PlanHospital course to date:IMPRESSION:1. Uncontrolled diabetes mellitus.2. Sepsis secondary to bilateral lower extremity ulcers.3. Obstructive sleep apnea.4. Obesity hypoventilation syndrome. PLAN:1. The patient remains admitted to the care of the hospitalist service.2. Continue on a regimen of clindamycin and Zosyn. Pharmacy consulted for appropriate dosing.3. Continue on DVT and peptic ulcer prophylaxis.4. Follow blood cultures.5. Hydrate the patient with NS at 75 ml an hour.6. Continue on insulin sliding scale.7. We have consulted podiatry for evaluation of patient's ulcers.8. Order bilateral lower extremity arterial and venous Dopplers.9. Further recommendations as per podiatry and wound care team.10. Tentative discharge in 24 to 48 hours. at 2126 at 1029 RPT #:[id number] OF REPORTPRProgress [id number]:18:00VR.[id number] lable for patient [id number]:29:20 [facility] 2018-12-02 14:02:00 [id number] 25-11-25T14:02:296006-1678 [place] [address] [place], [place], [facility] PATIENT NAME: SHILA COWART ADMIT DATE: 12/01/18ACCOUNT NO: [id number] ROOM NO: VR.327 AGE: 37 REPORT TYPE: CONSULTATION REPORT SEX: M ADMITTING PHYSICIAN:Keny Duran MD ATTENDING PHYSICIAN:Keny Duran MD CONSULTING PHYSCIAN:Reji Garcia DPS CONSULTATION DATE: 12/02/2018 CONSULTING PHYSICIAN: Reji Garcia DPM HISTORY OF PRESENT ILLNESS: This is a 37-year-old male seen inconsultation, courtesy of Dr. Duran for evaluation of bilateral halluxulceration. The patient has been admitted to the hospital due to ulcerations inbilateral hallux, presented yesterday to the Emergency Room, complains of feversand generalized body weakness. PAST MEDICAL HISTORY: The patient has a medical history of diabetes mellitus,morbid obesity, and hypertension. His glucose is uncontrolled, recentlyelevated to 342. PAST SURGICAL HISTORY: The patient denies any surgical history. ALLERGIES: HE HAS ALLERGIES TO VANCOMYCIN. SOCIAL HISTORY: Denies any history of tobacco. Denies any illicit drugs. Occasional alcohol use. CURRENT MEDICATIONS: Have been reviewed in the chart. SYSTEM REVIEW: He was at this time, alert, awake, and well oriented. He deniesany chest pain. No palpitation. No nausea, vomiting, or diarrhea. No dysuriaor hematuria. His most recent laboratory workup demonstrated white count of 6.2, hemoglobin of13.2, red blood cell of 4.61, and hematocrit of 40.9. His most recent chemistrydemonstrated sodium of 136, potassium of 4.0, BUN of 16, and serum creatinine of0.7, blood glucose was 196, coming down from 272. The patient is otherwise alert and awake as stated above. Vascular ultrasoundsdemonstrated triphasic waveforms throughout the lower extremity. There is somescattered atherosclerotic plaque in the area, but no area of occlusion at thistime. High-grade flow limiting stenosis, especially to the left lowerextremity, but waveforms are seen involving distal anterior tibialis anddorsalis pedis arteries and also monophasic waveforms on the posterior tibialisarteries. Foot x-ray evaluation demonstrated on the left foot, arterialcalcifications, which were all over his foot. There is a questionable softtissue area, which most likely is correlating with the ulceration of the hallux PATIENT NAME: SHILA COWART at this time. No evidence of cortical abnormalities or focal osteopeniaassociated with this, indicating acute osteomyelitis at this point. PHYSICAL EXAMINATION:GENERAL: The patient is otherwise resting comfortably in bed. He denies anychest pain. No palpitations. No nausea, vomiting, or diarrhea as stated above.EXTREMITIES: Examination of the lower extremity demonstrated open ulcers on theplantar aspect of bilateral hallux with fully granulated base. No signs ofdrainage, no signs of cellulitis associated with these hallux ulcers. They werenoted to be fairly clean. Positive tenderness upon by palpation despite ofneuropathy of diabetes, but loss of protective sensation on the plantar aspectof bilateral foot. ASSESSMENT: At this time, bilateral hallux ulcers, diabetic polyneuropathy, andmorbid obesity. TREATMENT PLAN: At this time, continue with the local wound care. We willorder Iodosorb to the wounds at this point and monitor his progress during thestay here in the hospital. The surgical intervention may be a consideration inthe future once the patient becomes more stable and this will be discussed withthe patient. This may entitle open surgery and fusion of themetatarsophalangeal joint area in order to prevent further ulceration in thisarea. We thank Dr. Duran for allowing me to participate in this case. We willcontinue with local wound care at this time and monitor his progress and planfurther. Dictated By: Reji Garcia DPM WT: CON:ALICIA/ELIAS/NTSDD: 12/02/2018 14:02:53DT: 12/02/2018 17:41:27Conf#: [id number]/DID#: [id number] Authenticated by Rjei Garcia DPM On 12/04/2018 01:28:18 PM at 1328 PATIENT NAME: SHILA COWART :41:00[facility] [id number] for patient [id number]:28:11 [facility] 2018-12-02 02:26:00 [id number] 25-11-25T02:26:317907-8681 [place] [address] [place], [place], [address] PATIENT NAME: SHILA COWART ADMIT DATE: 12/01/18ACCOUNT NO: [id number] ROOM NO: VR.327 AGE: 37 REPORT TYPE: HISTORY AND PHYSICAL SEX: M ADMITTING PHYSICIAN:Keny Duran MD ATTENDING PHYSICIAN:Keny Duran MD ADMISSION DATE: 12/01/2018 HISTORY OF PRESENT ILLNESS: This is a 37-year-old male who patient presentedto the Emergency Department with chief complaints of fever, generalized bodyweakness, and body aches. The patient also reports nonhealing ulcers to thebilateral great toes. In the emergency room, the patient's white cell countwas unremarkable. He was also influenza A and B negative. The patient'sthroat culture was still pending at this time. I reviewed the patient's vitalsigns and he had a max temperature of 101.1 degrees Fahrenheit uponpresentation. The patient was initially tachycardic, but did respond well toIV fluid challenges. Laboratory review with unremarkable lactic acid andunremarkable procalcitonin. However, his glucose was significantly elevated at342. X-rays were performed of bilateral feet, which showed no evidence of anyosteomyelitis to the bilateral great toes. The chest x-ray then was read ashaving an asymmetrical opacity to the right lung base. However, it appears dasia more of an atelectasis than an actual infiltrate. The patient is nowadmitted to the care of the hospitalist service as he has no local PCP. PAST MEDICAL HISTORY:1. Diabetes mellitus.2. Morbid obesity.3. Hypertension. PAST SURGICAL HISTORY: Denies surgical history. ALLERGIES: THE PATIENT IS ALLERGIC TO VANCOMYCIN. SOCIAL HISTORY: The patient denies any history of tobacco, or illicit drug use. Reports occasional alcohol use. HOME MEDICATIONS: Please see home medication list. REVIEW OF SYSTEMS: Twelve-point review of systems was performed and pertinentsymptomology mentioned in HPI. All other systems were assessed andnonpertinent. PHYSICAL EXAMINATION:VITAL SIGNS: Current temperature is 98.2 degrees Fahrenheit, heart rate 92,respiration 20, blood pressure 133/83, 96% saturation on room air.GENERAL: Reveals a morbidly obese male, in no acute distress at this time.HEENT: Head atraumatic and normocephalic. Moist mucous membranes. Anictericsclerae. PATIENT NAME: SHILA COWART NECK: Trachea midline.PULMONARY: Breath sounds are clear to auscultation. No rhonchi or wheezing.CARDIAC: S1, S2. No rubs or gallops.NEUROLOGIC: Cranial nerves II through XII intact. No focal deficits.GASTROINTESTINAL: Abdomen is soft and nontender. Normal bowel sounds. Noguarding or rigidity.MUSCULOSKELETAL: The patient has bilateral ulcers to the bilateral great toes.They do appear dusky in color. The patient also has swelling to the bilaterallower extremities with multiple varicosities bilaterally.GENITOURINARY: No flank tenderness.PSYCHIATRIC: The patient is calm and cooperative. Normal affect. LABORATORY DATA: White cell count 8.6 with hemoglobin 14.2, hematocrit 41.7,and platelet count 177,000. Coags unremarkable. Urine shows greater than 1000glucose. Calcium 1.15. Potassium of 4, chloride 100, BUN 19, creatinine 0.7, glucose 342. A1c 9.6, lactic acid 1.61. Procalcitonin 0.05. RADIOLOGICAL DATA: X-ray of bilateral feet shows the patient to have softtissue swelling on both great toes consistent with ulcerations. No evidence ofany osteomyelitis. Chest x-ray shows the patient to have asymmetric opacity inthe right lower lobe. However, it does appear to be more of an atelectasis thanan actual infiltrate. IMPRESSION:1. Uncontrolled diabetes mellitus.2. Sepsis secondary to bilateral lower extremity ulcers.3. Obstructive sleep apnea.4. Obesity hypoventilation syndrome. PLAN:1. The patient has been admitted to the care of the hospitalist service.2. I started the patient on a regimen of clindamycin and Zosyn. Pharmacyconsulted for appropriate dosing.3. Start the patient on DVT and peptic ulcer prophylaxis.4. We will obtain blood cultures.5. Hydrate the patient with NS at 75 ml an hour.6. Start the patient on insulin sliding scale.7. We have consulted podiatry for evaluation of patient's ulcers.8. Order bilateral lower extremity arterial and venous Dopplers.9. Further recommendations as per podiatry and wound care team. Dictated By: Sunday Mendoza NP for Keny Duran MD WT: HP:ALICIA/LOVELY/NTSDD: 12/02/2018 02:26:17DT: 12/02/2018 03:04:37Conf#: [id number]/DID#: [id number] and Edited by Sunday Mendoza NP On 12/02/18 9:16:57 PMAuthenticated and Edited by Keny Duran MD On 12/04/18 10:26:10 AM PATIENT NAME: SHILA COWART at 1029 at 1029 PATIENT NAME: SHILA COWART and physical [id number] AVAvailable for patient [id number] [facility] 2018-12-01 18:45:00 [id number] 25-11-24T18:45:00 [facility] ([facility])EMERGENCY PROVIDER REPORTREPORT#:[id number] REPORT STATUS: SignedDATE:12/01/18 TIME: 184 PATIENT: SHILA COWART UNIT #: [id number]#: [id number] ROOM/BED: [facility]-BAGE: 37 SEX: M PCP PHYS: Keny Duran AUTHOR: Xavier Maguire MD * ALL edits or amendments must be made on the electronic/computer document * HPI-Fever GeneralConfirmed Patient YesPatient Type New patientInitial Greet Date/Time 12/01/18 1837PCPNo PCP PresentationChief Complaint feverHx Obtained From Patient)( Onset Occurred TodaySymptom Duration Since onsetProgression since Onset Gradually worseningLocation Head, ThroatRadiation Does not radiateAssociated withReports: Chills, Headache, Myalgia, Sore throat, Vomiting. Denies: Abdominal pain, Back pain, Chest pain, Cough, non-productive, Diarrhea, Mental status change, Rash, Shortness of breath, Sputum production. ContextRelated HistoryReports: Diabetes mellitus. Immunization Status Not Up to Date Seasonal influenza Free Text HPI NotesFree Text HPI Notes37 year old male presents to ED for evaluation of a fever. Pt states that he started feeling ill 1500 today with fever, chills and body aches. He reports that symptoms have since worsened with a sore throat, nasal congestion and headache. Pt notes having nausea and vomiting on arrival but denies cough, SOB, chest pain, diarrhea, abdominal pain or any other symptoms. Pt provides that he has two ulcers on both feet that he has been caring for at home. Temperature of 101.1F noted in ED. Portions of this section were scribed by Alison Whitfield on 12/01/18 at 2114 Review of Systems ROS StatementsAll systems rev neg except as marked. Focused Review of SystemsConstitutionalReports: Chills, Fever. Ears/Nose/ThroatReports: Nasal congestion, Sore throat. RespiratoryDenies: Cough, non-productive, Shortness of breath. CardiovascularDenies: Chest pain. GIReports: Nausea, Vomiting. Denies: Abdominal pain, Diarrhea. MusculoskeletalReports: Myalgia. NeurologicReports: Headache. Denies: Change LOC, Confusion, Dizziness, Generalized weakness, Lightheaded, Numbness, Seizure, Syncope. Portions of this section were scribed by Alison Whitfield on 12/01/18 at 1854 Past Medical History - AdultStated Complaint FEVER, BODY ACHES, WEAKNESS, PAIN TO RIGHT LAllergiesCoded Allergies:vancomycin (Severe, swelling 12/01/18) Home MedicationsReported MedicationsGABAPENTIN (NEURONTIN) 600 MG PO TID metFORMIN (GLUCOPHAGE) 1,000 MG PO BID CARVEDILOL (COREG) 12.5 MG PO BID EMPAGLIFLOZIN (JARDIANCE) 10 MG PO DAILY Review of Nursing Notes Rev avail, and agreePast Medical History:Reports: Diabetes mellitus, Pressure ulcer (bilateral great toes). Additional Surgical Historyosteotomy of bilateral legsSmoking status for patients 13 years old or older: Never SmokerOther Social History Local resident, Good social support Portions of this section were scribed by Alison Whitfield on 12/01/18 at 2032 Physical Exam Vital SignsVital SignsFirst Documented: Result Date Time Pulse Ox 95 [...] 2110 Review of Vital Signs Reviewed Focused PEGeneral/Const General/Const Awake, Alert, Well developed, Well nourished Text/Dict Noteswarm to touch Distress/Hydration Distress moderate. Appearance/Presentation Obese, morbidly. MS Neck Neck Supple, No meningismus, Full range of motionResp/Chest Respiratory/Chest Breath sounds NL, Breath sounds = bilat, No respiratory distress, No rales, No rhonchi, No wheezingCardiovascular Cardiovascular Heart rate NL, Regular rhythm, Heart sounds NL, Cap refill notdelayed, Peripheral circulation NL, Pulses = bilaterally Lower Ext Edema Bilateral 2+. Abdomen/GI Abdomen/GI Soft, Non-tender, No distention, No palpable massSkin Skin Color NL, No rash, Warm Color/Condition Diaphoresis present. Neurologic Neurologic Oriented X3, Speech NL, No motor deficits Additional PEMS Lower Extrem Lower Ext/Pelvis/MS Full range of motion, Non-tender, No erythema, Neurologicintact, Vascular intact Text/Dict Notes2+ edema to bilateral lower extremities, ulcerated wounds noted to the plantar surfaces of the bilateral great toes; wounds do not appear infected Portions of this section were scribed by Alison Whitfield on 12/01/18 at 2114 Interpretation Diagnostics Lab Results InterpretationResultsLaboratory Tests 12/01/18 1853:[Embedded Image Not Available]Laboratory Tests: 12/01 192 1908Blood Gas VBG Total CO2 (24 - 30 MMOL/L) 24 Ionized Calcium (1.13 - 1.32 mmol/L) 1.15Chemistry POC Sodium (136 - 145 MMOL/L) 138 POC Potassium (3.5 - 5.1 MMOL/L) 4.0 POC Chloride (98 - 107 MMOL/L) 100 POC BUN (7 - 18 MG/DL) 19 H POC Creatinine (0.6 - 1.0 MG/DL) 0.7 POC Glucose (65 - 99 MG/DL) 342 H POC Lactic Acid Fei (0.40 - 2.00 MMOL/L) 1.61 2.68 HHematology POC Hgb (13.5 - 17.5 G/DL) 15.0 POC Hct (44.0 - 56.0 %) 44Urines Urine Color (YELLOW) LIGHT YELLOW Urine Appearance (CLEAR) CLEAR Urine pH (5.0 - 8.5) 6.0 Ur Specific [place] (1.000 - 1.030) 1.010 Urine Protein (NEGATIVE) NEGATIVE Urine Glucose (UA) (NEGATIVE) >=1000 Urine Ketones (NEGATIVE) NEGATIVE Urine Blood (NEGATIVE) NEGATIVE Urine Nitrite (NEGATIVE) NEGATIVE Urine Bilirubin (NEGATIVE) NEGATIVE Urine Urobilinogen (<=1.0 EU/DL) 0.2 EU/DL Ur Leukocyte Esterase (NEGATIVE) NEGATIVE Urine RBC (0 - 5) 0-2 Urine WBC (0 - 5) 2-5 Ur Squamous Epith Cells (NONE SEEN #/lpf) 5-10 12/01 12/01 7567 [id number] Chemistry Mean Blood Glucose 228.8 Hemoglobin A1c [...] Coagulation INR (0.93 - 1.2) 1.06 PTT ([place]) (23.0 - 32.0 SECONDS) 27.0 PT Patient/Control Mix (9.9 - 11.6 SECONDS) 10.9 Hematology WBC (4.8 - 10.8 K/mm3) 8.6 [...] (Auto) (14 - 40 %) 11.3 L Branch % (Auto) (4.0 - 10.2 %) 5.7 Eos % (Auto) (0 - 4.1 %) 0.6 Baso % (Auto) (0.1 - 0.7 %) 0.3 Neut # (Auto) (2.5 - 8.6 K/mm3) 7.0 Lymph # (Auto) (1.1 - 3.6 K/mm3) 1.0 L Branch # (Auto) (0.3 - 0.9 K/mm3) 0.5 Eos # (Auto) (0.0 - 0.4 #) 0.05 Baso # (Auto) (0.0 - 0.2 K/mm3) 0.03 Nucleated RBC % (0 - 0 %) 0 Nucleated RBCs # (Man) (0.00 - 0.20 K/mm3) 0.00 Microbiology: Date/Time Procedure - Status Source Growth 12/01 2044 Urine Culture - RES URINE 12/01 194 Wound Culture - RES TOE 12/01 194 Wound Culture - RES TOE 12/01 185 Influenza Virus Type B Antigen - COMP NASOPHARG 12/01 185 Influenza Virus Type A Antigen - COMP NASOPHARG 12/01 1853 Blood Culture - RES BLOOD 12/01 1853 Blood Culture - RES BLOOD 12/01 1849 Group A Streptococcus Screen (DEBRA) - COLB THROAT Recent Impressions:CAT SCAN - CT CHEST W/O CONTRAST 12/01 0534 Report Impression - Status: SIGNED Entered: 12/02/2018 0554 IMPRESSION: 1. No focal consolidation. No other acute abnormalities on thislimited noncontrast examination.Impression By: [email or web address] - LLOYD OGLESBY M.D.RADIOLOGY - XR CHEST 1 V 12/01 2030 Report Impression - Status: SIGNED Entered: 12/01/20182044 IMPRESSION:Asymmetric opacity in the right lung base may represent atelectasis ordeveloping infiltrate. Impression By: [email or web address] Zora DSOUZA M.D. Lab StatementLaboratory studies reviewed and considered in the medical decision-making. Imaging StatementRadiographic studies reviewed and considered in the medical decision-making. ECG #1 InterpretationDate 12/01/18Time 1847Interpreted by ED physicianNL ECG Interpretation No STEMIRate 103ECG Q-T-ST - SD cannot rule out anterior infarct (age undetermined)Rhythm Tachycardia Portions of this section were scribed by Alison Whitfield on 12/01/18 at 4 Re-Evaluation MDM Free Text MDM NotesFree Text MDM NotesPt. presents to the ED with fever and URI symptoms. Pt. met sepsis criteria and found to have RLL PNA. Pt. also with bilat. great toe ulcerated wounds but no evidence of infection there. Pt. given IVF and ABX and admitted. Re-Evaluation/ProgressRe-Evaluation/Progress 1 Time of Re-Eval 1838 Re-Eval Status Sepsis alert called overhead.Re-Evaluation/Progress 2 Time of Re-Eval 2050 Re-Eval Status Pt weighs 159kg; 30ml/kg of fluids would be 4.5L which would be excessive for his body habitus. Fluids were limited to 2L; pending repeat lactic acid before proceeding. Sepsis ReassessmentDate of exam: 12/01/18Time of exam: 2110Vital signs:T 99.2F, P 96pm, BP 148/74, R 16 / min. on RA (O2 sats of 98%) Cardiac assessment: normal heart sounds, regular rate rhythmRespiratory assessment: aerating well, clear to auscultationCapillary refill assess: briskPeripheral pulse assess: Radial pulse: 2+ Dorsalis pedis pulse: 2+ Posterior tibialis pulse: 2+Skin color: normal color ED CourseMedication(s) OrderedMedication(s) Ordered:Hormones And Synthetic Substit Sig/Roberta Start time Last Medication Dose Route Stop Time Status Admin Insulin Human Regular See Dose Q6HR 12/02 0000 DC Insts (1) SUBQ 12/02 2100 Dose Instructions:(1)Insulin Human Regular: ACCUCHECK Q6 HRS THEN IF; BS 151-200= UNIT BS 201-250= UNIT BS 251-300= UNIT BS 301-350= UNIT BS 351-400= UNIT BS >401 = UNIT Portions of this section were scribed by Alison Whitfield on 12/01/18 at 2113 Patient Discharge Departure Vital Signs/ConditionVital SignsFirst Documented: Result Date Time Pulse Ox 95 [...] signs available at the time of this entry have been reviewed. Condition Stable Clinical ImpressionClinical ImpressionPrimary Impression: Severe sepsisSecondary Impressions: Hyperglycemia, Right lower lobe pneumonia, ULCERATED WOUNDS TO BILATERAL FEETTime of Impression 2033 Disposition DecisionAdmit Admit Physician Name Keny Duran MD Admit Physician Hospitalist Request Time 2046 Request Date 12/01/18 )( Admission Accepts Yes )( Accepted Time 2113 )( Accepted Date 12/01/18 Call Information pt case discussed with Sunday Mendoza NP taking call for admission Discharge/Care PlanCounseled Regarding Diagnosis, Lab results, Imaging studies, Need for admission Admit NoteI have spoken with the patient and/or caregivers. I have explained the patient'scondition, diagnoses and treatment plan based on the information available to meat this time. I have answered the patient's and/or caregiver's questions and addressed any concerns. The patient and/or caregivers have as good an understanding of the patient's diagnosis, condition and treatment plan as can beexpected at this point. The [facility] The patient will be transported for further care and management or will be moved to an observation or inpatient service. I have communicated with the staff or medical practitioner taking over this patient's care. Critical CareTime Spent (minutes): 45Services Performed Patient management by me, Time spent at bedside, Reviewing test results, Reviewing imaging, Discussing patient care, Documentation in record, Time with fam/surrogateSeparately billable procedures excluded from time. CC Note 1Total critical care time 45 minutes. Total critical care time documented does not include time spent on separately billed procedures or the services of residents, students, nurses or physician assistants. I personally saw and examined the patient. I have reviewed all diagnostic interpretations and treatment plans as written. I was present for the cash portions of any proceduresperformed and the inclusive time noted in any critical care statement. Critical care time includes patient management by me, time spent at the patients bedside,time to review lab and imaging results, discussing patient care, documentation in the medical record, and time spent with the family or caregiver. Quality MeasuresBP F/U for HTN Referred for BP f/u < 4wk, F/u with PCP/other docSep: Lactate Ordered 18 years or older, Lactate lv ordered in EDSep: Antibiotics Ordered 18 years or older, Antibiotics ordered in EDSep: Fluid Resuscitation 18 years or older, Rec'd > 1 L crystalloid Supervising Physician Note Scribe StatementAlison Whitfield, 12/01/181931, scribing for and in the presence of Dr. Maguire.Signed By: Alison Whitfield, 12/01/181931 Provider Scribed StatementI personally performed the services described in this documentation and reviewedthe documentation that was dictated to the scribe(s) in my presence, and it accurately records my words and actions. Xavier Maguire, 12/02/18 Portions of this section were scribed by Alison Whitfield on 12/01/18 at 2048 at 2241RPT #:[id number] OF REPORTEDEmerchi st. [facility] department [id number]:45:00VR.[id number] ailable for patient [id number]:41:18 HCAVA
[2023-09-17] MEDS ORDERED: ACETAMINOPHEN 500 MG TAB ONE (08:21)
[2023-09-17] MEDS ORDERED: ONDANSETRON 4 MG (ODT) TAB ONE (08:21)
[2023-09-17 08:38] LABS: SARS-CoV-2 Antigen Rapid Res Negative (Negative)
--- NOTE | 2023-09-17 08:55 | RAD REPORT ---
EXAM DESCRIPTION: RAD - Chest Pa And Lat (2 Views) - 09/17/2023 8:48 am CLINICAL HISTORY: Congestion;Cough Chest pain. COMPARISON: Chest Single View dated 03/19/2023; Chest Single View dated 12/22/2022; Chest Single View dated 06/16/2022; Chest Single View dated 01/16/2022 FINDINGS: The lungs appear grossly clear. No focal infiltrate typical of pneumonia seen. Small hiata l hernia. The heart is normal in size. No displaced fractures.
--- NOTE | 2023-09-17 09:37 | EDPHYS ---
Physician Documentation [facility] Name: Addy Quintana Jr Age: 42 yrs Sex: Male : 1980 Arrival Date: 09/17/2023 Time: 07:22 Bed 18 Private MD: ED Physician Ralph Mueller HPI: 09/17 08:12 This 42 yrs old Male presents to ER via Wheelchair with complaints of Flu ms3 Symptoms. 08:12 42-year-old male with past medical history of diabetes, hyperlipidemia, hypertension, ms3 neuropathy presents to the emergency department for body aches, cough, nausea, throat pain that began yesterday afternoon after work. Patient rates his pain a 10/10 and describes it as aching. Patient states he took penicillin from [place] and broke out in a sweat overnight. Patient denies any alleviating or inciting factors.. Historical: - Allergies: 07:56 VANCOMYCIN AND DERIVATIVES; hb - Home Meds: 07:56 Tresiba FlexTouch U-100 100 unit/mL (3 mL) subcutaneous inpn [Active]; gabapentin 600 hb mg Oral tab 1 tab 3 times per day [Active]; metformin 1 Oral tab 1 tab 2 times per day [Active]; - PMHx: 07:56 Diabetes - IDDM; DVT; Hypercholesterolemia; Hypertension; neuropathy; hb - PSHx: 07:56 Dion knee sx; hb - Immunization history:: Adult Immunizations up to date. - Social history:: Smoking status: Patient denies any tobacco usage or history of. ROS: 08:12 Cardiovascular: Negative for chest pain, and palpitations. ms3 08:12 Constitutional: Positive for body aches, chills, 08:12 ENT: Positive for nasal discharge, sinus congestion, sore throat, 08:12 Respiratory: Positive for cough, 08:12 Abdomen/GI: Positive for nausea, 08:12 All other systems are negative, Exam: 08:12 Constitutional: This is a well developed, well nourished patient who is awake, alert, ms3 and in no acute distress. 08:12 Respiratory: Lungs have equal breath sounds bilaterally, clear to auscultation and percussion. No rales, rhonchi or wheezes noted. No increased work of breathing, no retractions or nasal flaring. Abdomen/GI: Soft, non-tender, with normal bowel sounds. No distension or tympany. No guarding or rebound. No evidence of tenderness throughout. 08:12 Cardiovascular: Rate: tachycardic, Rhythm: regular, Pulses: no pulse deficits are appreciated, Heart sounds: normal, normal S1and S2, 09:38 Skin: lesion(s), Chronic foot ulcer base of plantar surface left great toe, ms3 Vital Signs: 07:54 BP 133 / 76; Pulse 115; Resp 18; Temp 99; Pulse Ox 96% ; Weight 148.32 kg; Height 5 ft. hb 7 in. ; Pain 10/10; 09:21 BP 134 / 87; Pulse 113; Resp 20; Temp 98.1(O); Pulse Ox 98% ; Pain 10/10; ll1 09:54 Pulse 113; Resp 20; Temp 99.2(O); Pulse Ox 96% on R/A; ll1 10:12 Pulse 110; Resp 20; Pulse Ox 96% on R/A; Pain 10/10; ll1 10:17 Pulse 108; Resp 20; Pulse Ox 95% ; ll1 07:54 Body Mass Index 51.21 (148.32 kg, 170.18 cm) hb 07:54 Pain Scale: Adult hb 09:21 Pain Scale: Adult ll1 10:12 Pain Scale: Adult ll1 MDM: 07:58 Patient medically screened. ms3 08:12 Differential Diagnosis: Bronchitis Influenza Upper Respiratory Infection Viral Syndrome ms3 Pneumonia. 08:57 Data reviewed: vital signs, nurses notes, lab test result(s), radiologic studies, and ms3 as a result, I will discharge patient. I considered the following discharge prescriptions or medication management in the emergency department Medications were administered in the Emergency Department. See MAR. Independent interpretation of the following test(s) in the Emergency Department X-Ray: My interpretation is CXR images reviewed by me do not reveal pneumonia. 09:38 Care significantly affected by the following chronic conditions: Diabetes, ms3 Hypertension. Counseling: I had a detailed discussion with the patient and/or guardian regarding the historical points, exam findings, and any diagnostic results supporting the discharge/admit diagnosis, lab results, radiology results, the need for outpatient follow up, to return to the emergency department if symptoms worsen or persist or if there are any questions or concerns that arise at home. Special discussion: I discussed with the patient/guardian in detail that at this point there is no indication for admission to the hospital. It is understood, however, that if the symptoms persist or worsen the patient needs to return immediately for re-evaluation. ED course: Discussed labs and chest x-ray findings with patient. Patient to follow-up with her primary care physician in 2 to 3 days. Return precautions discussed include fevers, shortness of breath, chest pain, worsening symptoms, or any other concerns. On reevaluation patient symptoms improved, patient is alert and orient x 4, no apparent distress, nontoxic-appearing, speaking full sentences. 09/17 07:58 Order name: SARS RAPID; Complete Time: 08:56 ms3 09/17 07:58 Order name: Flu; Complete Time: 08:56 ms3 09/17 07:58 Order name: Chest Pa And Lat (2 Views) XRAY; Complete Time: 08:56 ms3 Administered Medications: 08:10 Drug: Ondansetron PO 4 mg PO once Route: PO; ll1 09:22 Follow up: Response: No adverse reaction; Nausea is decreased ll1 08:35 Drug: Acetaminophen PO 1000 mg PO once Route: PO; hb 09:22 Follow up: Response: No adverse reaction; Pain is unchanged, physician notified; RASS: ll1 Alert and Calm (0) 09:32 Drug: Ibuprofen PO 600 mg PO once Route: PO; ll1 10:25 Follow up: Response: No adverse reaction; Pain is decreased; RASS: Alert and Calm (0) ll1 Disposition Summary: 09/17/23 09:37 Discharge Ordered Notes: Location: Home ms3 Condition: Stable ms3 Diagnosis - Cough ms3 - Viral Illness ms3 - Myalgia ms3 Followup: ms3 - With: Thiago Sanchez DO - When: 2 - 3 days - Reason: Recheck today's complaints Discharge Instructions: - Discharge Summary Sheet ll1 - Musculoskeletal Pain ms3 - Cough, Adult ms3 Forms: - Work release form ll1 - Medication Reconciliation Form ms3 - Thank You Letter ms3 - Antibiotic Education ms3 - Prescription Opioid Use ms3 - Patient Portal Instructions ms3 - Leadership Thank You Letter ms3 Prescriptions: - benzonatate 200 mg Oral capsule - take 1 capsule ORAL route 3 times per day as needed; 20 capsule; Refills: 0, ms3 Product Selection Permitted Signatures: Dispatcher Spawn LabsOH iogyn, Alison, RN RN hb Yanira Doan RN RN ll1 Ralph Mueller, DO GIRARD ms3
--- NOTE | 2023-09-17 09:37 | ER ---
Nurse's Notes [facility] Name: Addy Quintana Jr Age: 42 yrs Sex: Male : 1980 Arrival Date: 09/17/2023 Time: 07:22 Bed 18 Private MD: Diagnosis: Cough;Viral Illness;Myalgia Presentation: 09/17 07:54 Chief complaint: Headache, sore throat, body aches, cough, and nausea x 2 days. hb Coronavirus screen: At this time, the client does not indicate any symptoms associated with coronavirus-19. Ebola Screen: No symptoms or risks identified at this time. Initial Sepsis Screen: Does the patient meet any 2 criteria? No. Patient's initial sepsis screen is negative. Does the patient have a suspected source of infection? No. Patient's initial sepsis screen is negative. Risk Assessment: Do you want to hurt yourself or someone else? Patient reports no desire to harm self or others. Onset of symptoms was September 16, 2023. 07:54 Method Of Arrival: Wheelchair hb 07:54 Acuity: FLORENCIO 3 hb Triage Assessment: 10:17 General: Behavior is calm. ll1 Historical: - Allergies: 07:56 VANCOMYCIN AND DERIVATIVES; hb - Home Meds: 07:56 Tresiba FlexTouch U-100 100 unit/mL (3 mL) subcutaneous inpn [Active]; gabapentin 600 hb mg Oral tab 1 tab 3 times per day [Active]; metformin 1 Oral tab 1 tab 2 times per day [Active]; - PMHx: 07:56 Diabetes - IDDM; DVT; Hypercholesterolemia; Hypertension; neuropathy; hb - PSHx: 07:56 Dion knee sx; hb - Immunization history:: Adult Immunizations up to date. - Social history:: Smoking status: Patient denies any tobacco usage or history of. Screenin:14 [facility] ED Fall Risk Assessment (Adult) Score/Fall Risk Level 0 - 2 = Low Risk ll1 Oriented to surroundings, Maintained a safe environment, Educated pt \T\ family on fall prevention, incl call for assistance when getting out of bed, Hourly rounding (assess needs \T\ fall precautionary measures) done. Abuse screen: Denies threats or abuse. Nutritional screening: No deficits noted. Tuberculosis screening: No symptoms or risk factors identified. Assessment: 07:52 Reassessment: Pt actively vomiting in triage, Dr. Mueller notified. hb 08:13 General: Appears uncomfortable, ill, Reports fever for feeling ill for fatigue for. ll1 Pain: Complains of pain in all over Quality of pain is described as aching. Neuro: Reports headache. Respiratory: Reports cough that is. GI: Reports nausea, vomiting. EENT: Reports nasal congestion. Musculoskeletal: Circulation, motion, and sensation intact. Capillary refill < 3 seconds, Reports pain in all over. 08:35 Reassessment: No changes from previously documented assessment. Patient and/or family ll1 updated on plan of care and expected duration. Pain level reassessed. 09:22 Reassessment: No changes from previously documented assessment. Patient and/or family ll1 updated on plan of care and expected duration. Pain level reassessed. Patient is alert, oriented x 3, equal unlabored respirations, skin warm/dry/pink. 09:32 Reassessment: No changes from previously documented assessment. Patient and/or family ll1 updated on plan of care and expected duration. Pain level reassessed. 09:55 Reassessment: No changes from previously documented assessment. Patient and/or family ll1 updated on plan of care and expected duration. Pain level reassessed. 10:12 Reassessment: No changes from previously documented assessment. HR 110. Dr. Mueller ll1 informed, cleared for discharge. Vital Signs: 07:54 BP 133 / 76; Pulse 115; Resp 18; Temp 99; Pulse Ox 96% ; Weight 148.32 kg; Height 5 ft. hb 7 in. ; Pain 10/10; 09:21 BP 134 / 87; Pulse 113; Resp 20; Temp 98.1(O); Pulse Ox 98% ; Pain 10/10; ll1 09:54 Pulse 113; Resp 20; Temp 99.2(O); Pulse Ox 96% on R/A; ll1 10:12 Pulse 110; Resp 20; Pulse Ox 96% on R/A; Pain 10/10; ll1 10:17 Pulse 108; Resp 20; Pulse Ox 95% ; ll1 07:54 Body Mass Index 51.21 (148.32 kg, 170.18 cm) hb 07:54 Pain Scale: Adult hb 09:21 Pain Scale: Adult ll1 10:12 Pain Scale: Adult ll1 ED Course: 07:24 Patient arrived in ED. rg4 07:25 Ralph Mueller DO is Attending Physician. ms3 07:56 Triage completed. hb 08:13 Flu Sent. ll1 08:13 SARS RAPID Sent. ll1 08:14 Patient has correct armband on for positive identification. Bed in low position. Call ll1 light in reach. Provided Education on: ER procedures and process. Cardiac monitoring not applicable on this patient. 08:49 Chest Pa And Lat (2 Views) XRAY In Process Unspecified. EDMS 09:22 Yanira Doan, GÓMEZ is Primary Nurse. ll1 09:36 Thiago Sanchez DO is Referral Physician. ms3 10:17 No provider procedures requiring assistance completed. Patient did not have IV access ll1 during this emergency room visit. 10:17 Arm band placed on. ll1 Administered Medications: 08:10 Drug: Ondansetron PO 4 mg PO once Route: PO; ll1 09:22 Follow up: Response: No adverse reaction; Nausea is decreased ll1 08:35 Drug: Acetaminophen PO 1000 mg PO once Route: PO; hb 09:22 Follow up: Response: No adverse reaction; Pain is unchanged, physician notified; RASS: ll1 Alert and Calm (0) 09:32 Drug: Ibuprofen PO 600 mg PO once Route: PO; ll1 10:25 Follow up: Response: No adverse reaction; Pain is decreased; RASS: Alert and Calm (0) ll1 Medication: 08:15 VIS not applicable for this client. ll1 Outcome: 09:37 Discharge ordered by MD. ms3 10:17 Patient left the ED. ll1 10:17 Discharged to home via wheelchair, ll1 10:17 Condition: stable 10:17 Discharge instructions given to patient, Instructed on discharge instructions, follow up and referral plans. medication usage, Demonstrated understanding of instructions, follow-up care, medications, Prescriptions given X 1, Signatures: Dispatcher [employer] EDMS Alison Navas RN RN hb Garcia, Rubi rg4 Yanira Doan RN RN ll1 Ralph Mueller DO DO ms3
[2023-09-17] MEDS ORDERED: IBUPROFEN 200 MG TAB PO ONE (09:42)
[2023-09-17] MEDS ORDERED: IBUPROFEN 400 MG TAB ONE (09:42)
[2023-09-17 10:23] VITALS: BP 134/87
[2023-09-17 10:26] VITALS: TEMP 99.2; O2SAT 96
== END 2023-09-17 10:17 | disposition home or self-care (01) ==
LOC: ER 07:22
DX: B34.9 Viral infection, unspecified (principal); M79.10 Myalgia, unspecified site; Z11.52 Encounter for screening for COVID-19
CPT/HCPCS: 36415; 71046; 87804; 87811; 99284; Q0162

== ENCOUNTER 2024-02-03 14:48 | Inpatient (IN) | payer SELFPAY ==
--- OUTSIDE RECORDS SUMMARY | 2024-02-03 14:53 | XMS REPORT | Continuity of Care Document ---
Author Name Unknown Address [address] [facility] [address] [place] [address] [facility] Address [address] [facility] [address] [place] [address] Care Team Providers Care Urgent Care Physician Assistant Name Role Phone Unavailable Unavailable Unavailable Payers Payer Name Policy Type Policy Number Effective Date Expirati on Date Source Allergies, Adverse Reactions, Alerts Allergy Name Allergy Type Status Severity Reaction(s) Onset Date Inactive Date Treating Clinician Comments Source No Allergy Informat ion Availabl e DA Active U 12-01 00:00: 00 [facility] vancomyc in DA Active SV 12-01 00:00: 00 [facility] Results Test Description Test Time Test Comments Results Result Co mments Source BASIC METABOLIC [id number] 05:36:00* Test Item Value Reference Range Interpretation [...] code = CA) 8.2 mg/dL 7.8-10.9 N [id number] 05:01:00* Test Item Value Reference Range Interpretation Comme nts GLUBED (test code = GLUBED) 185 mg/dL 70-110 H CBC W/AUTO [id number] 04:37:00* Test Item Value Reference Range Interpretation [...] code = NRBC#) 0.00 K/mm3 0.00-0.20 N [id number] 20:40:00* Test Item Value Reference Range Interpretation Comme nts GLUBED (test code = GLUBED) 256 mg/dL 70-110 H [id number] 17:24:00* Test Item Value Reference Range Interpretation Comme nts GLUBED (test code = GLUBED) 244 mg/dL 70-110 H [id number] 11:31:00* Test Item Value Reference Range Interpretation Comme nts GLUBED (test code = GLUBED) 272 mg/dL 70-110 H - DUP LE ART [id number] 09:44:00Campus: [facility]: [facility]: [facility] 1980 Age[facility]S: 37/M [address] [facility] Unit #: [id number] Loc: [address] [place], [place] [address] Phys: Keny Duran MD Acct: [id number] Dis Date: Status: ADM IN PHONE #: [phone] Exam Date: 12/02/2018 0339 FAX #: [phone] Reason: diabetic ulcers EXAMS: CPT CODE: [id number] MIO CHAWLA ARAVIND 84196 HISTORY: Ulcers TECHNIQUE:Grayscale B-mode, color-flow, and spectral [...] occlusion or high-grade flow limiting stenosis. at 0974 Reported and signed by: LLOYD OGLESBY M.D. Facility ACR Accreditation for Ultrasound -November 2011 CC: Keny Duran MD; Sunday Mendoza NP Technologist: SANDY CASTRO RDMS Transcribed Date/Time/By: 12/02/2018 (0944) : By: [email or web address] Orig Print D/T: S: 12/02/2018 (2038) PAGE 1 Signed ReportCOMPREHENSIVE METABOLIC [id number] 06:17:00* Test Item Value Reference Range Interpretation [...] code = ALKP) 84 U/L 45-117 N [id number] 06:17:00* Test Item Value Reference Range Interpretation Comme nts MAGNESIUM (test code = MAG) 2.0 mg/dL 1.5-2.1 N COMPREHENSIVE METABOLIC [id number] 06:10:00* Test Item Value Reference Range Interpretation [...] ( test code = ALKP) U/L 45-117 KTMNMBLTN5548-17-59 06:10:00* Test Item Value Reference Range Interpretation Comme nts MAGNESIUM (test code = MAG) mg/dL 1.5-2.1 - CT CHEST W/O [id number] 05:51:00Campus: [facility] [address]: [facility] 1980 Age[facility] 37[facility]M [address]ruff [facility] Unit #: [id number] Loc: [address] [place], [place] [address] Phys: Keny Duran MD Acct: [id number] Dis Date: Status: ADM IN PHONE #: [phone] Exam Date: 12/01/2018533 FAX #: [phone] Reason: PNA CTDI: DLP: Automated exposure control, iterative reconstruction technique, and/oradjustment of mA and/or kV according to patient's size was utilized fooptimum radiation dose reduction. EXAMS: CPT CODE: [id number] CT CHEST W/O CONTRAST 95604 HISTORY: Pneumonia TECHNIQUE: Axial tomograms through the [...] abnormalities on this limited noncontrast examination. at 0556 Reported and signed by: LLOYD OGLESBY M.D. Facility ACR Accreditation forMay 2012 CC: Keny Duran MD; Sunday Mendoza NP Technologist: CLAUDIA KINGSLEY(R)(CT) Transcribed Date/Time/By: 12/02/2018 (0507) : By: [email or web address] Orig Print D/T: S: 12/02/2018 (8875) PAGE 1 Signed ReportCBC W/AUTO [id number] 05:44:00* Test Item Value Reference Range Interpretation [...] code = NRBC#) 0.00 K/mm3 0.00-0.20 N [id number] 05:10:00* Test Item Value Reference Range Interpretation Comme nts GLUBED (test code = GLUBED) 201 mg/dL 70-110 H - DUP VEIN [id number] 04:37:00Campus: [address]: [facility]: [facility] 1980 Age[facility]S: 37[facility] [address] [facility] Unit #: [id number] Loc: [address] [place], [place] [address] Phys: Keny Duran MD Acct: [id number] Dis Date: Status: ADM IN PHONE #: [phone] Exam Date: 12/02/2018 023 FAX #: [phone] Reason: BLE SWELLING EXAMS: CPT CODE: [id number] DUP VEIN ARAVIND 60052 HISTORY: Bilateral swelling TECH NIQUE: Grayscale real-time B-mode imaging with color flow and spectral flow Doppler analysis was performed of the lower extremity. FINDINGS: There is normal flow, augmentation, and compressibility involving the deep venous structures bilaterally. Mildly prominent inguinal lymph nodes are noted bilaterally. IMPRESSION: 1. No evidence of DVT. at 8280 Reported and signed by: LLOYD OGLESBY M.D. Facility ACR Accreditation for Ultrasound -November 2011 CC: Keny Duran MD; Sunday Mendoza NP Technologist: SANDY CASTRO RDMS Transcribed Date/Time/By: 12/02/2018 (0437) : By: [email or web address] Orig Print D/T: S: 12/02/2018 (1485) PAGE 1 Signed Report- XR FOOT 2 VIEWS [id number] 00:17:00FAX: Keny Leonard MD Camps: ER St: ADM FAX: Sunday Mendoza NP [phone] Name: [facility] : 1980 Age/S: 37/M [address]ju[address] Kacy [facility] Unit #: [id number] Loc: [address] [place], [place] [address] Phys: Keny Duran MD Acct: [id number] Dis Date: Status: ADM IN PHONE #: Exam Date: 12/01/2018 230 FAX #: [phone] Reason: GREAT TOE ULCER EXAMS: CPT CODE: [id number] XR FOOT [address] [place] [address] LOCATION: V20 EXAM: - XR FOOT 2 [...] 1 Signed Report- XR FOOT 2 VIEWS [id number] 00:17:00FAX: Keny Leonard MD Camps: ER St: ADM FAX: Sunday Mendoza NP [phone] Name: SHILA COWART [facility] : 1980 Age/S: 37/M [address]ju[address] Gl[facility] Unit #: [id number] Loc: [address] [address] Phys: Keny Duran MD Acct: [id number] Dis Date: Status: ADM IN PHONE #: Exam Date: 12/01/2018 2304 FAX #: [phone] Reason: GREAT TOE ULCER EXAMS: CPT CODE: [id number] XR FO[place] [address] [place] [address] LOCATION: V20 EXAM: - XR FOOT 2 [...] 9.6 % 4.4-6.4 H MEAN BLOOD GLUCOSE [id number] 22:46:00* Test Item Value Reference Range Interpretation Comme nts MEAN BLOOD GLUCOSE CALCULATI ON (test code = MBGCALC) 228.8 URINALYSIS W/O [id number] 21:41:00* Test Item Value Reference Range Interpretation [...] = LEUU) NEGATIVE NEGATIVE SOURCE: URINESPECIMEN DESCRIPTION: [facility] [id number] 21:41:00* Test Item Value Reference Range Interpretation Comme nts UA WBC (test code = WBCU) 2-5 0-5 UA RBC (test code = RBCU) 0-2 0-5 UA SQUAMOUS CELLS (test code = SQU) 5-10 #/lpf NONE SEEN SOURCE: URINESPECIMEN DESCRIPTION: CMCURINALYSIS W/O [id number] 21:04:00* Test Item Value Reference Range Interpretation [...] = LEUU) NEGATIVE NEGATIVE SOURCE: URINESPECIMEN DESCRIPTION: [facility] [id number] 21:04:00* Test Item Value Reference Range Interpretation Comme nts UA WBC (test code = WBCU) 0-5 UA RBC (test code = RBCU) 0-5 SOURCE: URINESPECIMEN DESCRIPTION: CMCURINALYSIS W/O [id number] 21:04:00* Test Item Value Reference Range Interpretation [...] LEUU) NEGATIVE NEGATIVE SOURCE: URINESPECIMEN DESCRIPTION: CMCUA [id number] 21:04:00* Test Item Value Reference Range Interpretation Comme nts UA WBC (test code = WBCU) 0-5 UA RBC (test code = RBCU) 0-5 SOURCE: URINESPECIMEN DESCRIPTION: [facility] LACTIC [id number] 20:50:00* Test Item Value Reference Range Interpretation Comme nts POC LACTIC ACID (test code = POCLAC) 1.61 MMOL/L 0.40-2.00 N - XR CHEST 1 [id number] 20:42:00FAX: Xavier Maguire [phone] Camps: ER St: REG Name: SHILA COWART [facility] : 1980 Age/S: 37/M [address] Unit #: [id number] Loc: [place], [place] [address] Phys: Xavier Maguire MD Acct: [id number] Dis Date: Status: REG ER PHONE #: [phone] Exam Date: 12/01/20182039 FAX #: [phone] Reason: code sepsis EXAMS: CPT CODE: [id number] XR CHEST 1 V [address] LOCATION: V20 EXAM: - XR CHEST 1 [...] dose reduction. PAGE 1 Signed ReportHEPATIC FUNCTION [id number] 19:50:00* Test Item Value Reference Range Interpretation [...] code = ALKP) 98 U/L 45-117 N [id number] 19:50:00* Test Item Value Reference Range Interpretation Comme nts LIPASE (test code = LIP) 120 U/L 73-393 N Reporting units: International Units/L NT PRO-BRAIN NATRIURETIC [id number] 19:50:00* Test Item Value Reference Range Interpretation Comme nts NT PRO-BRAIN NATRIURETIC PEP TI (test code = PROBNP) 18 pg/mL 0-125 N [id number] 19:50:00* Test Item Value Reference Range Interpretation [...] PROCAL) 0.05 ng/mL 0.00-0.05 N CHEMISTRY 8 [id number] 19:36:00* Test Item Value Reference Range Interpretation [...] CREATBED) 0.7 MG/DL 0.6-1.0 N HEPATIC FUNCTION [id number] 19:36:00* Test Item Value Reference Range Interpretation [...] code = ALKP) 98 U/L 45-117 N [id number] 19:36:00* Test Item Value Reference Range Interpretation Comme nts LIPASE (test code = LIP) 120 U/L 73-393 N Reporting units: International Units/L NT PRO-BRAIN NATRIURETIC [id number] 19:36:00* Test Item Value Reference Range Interpretation Comme nts NT PRO-BRAIN NATRIURETIC PEP TI (test code = PROBNP) 18 pg/mL 0-125 N [id number] 19:36:00* Test Item Value Reference Range Interpretation [...] co de = PROCAL) ng/mL 0.00-0.05 PROTHROMBIN [id number] 19:25:00* Test Item Value Reference Range Interpretation [...] THE PATIENT ON ANY ANTICOAGULANTS? NTHROMBOPLASTIN TIME [id number] 19:25:00* Test Item Value Reference Range Interpretation Comme nts THROMBOPLASTIN TIME PARTIAL (test code = PTT) 27.0 SECONDS 23.0-32.0 N IS THE PATIENT ON ANY ANTICOAGULANTS? NPOC LACTIC [id number] 19:11:00* Test Item Value Reference Range Interpretation Comme nts POC LACTIC ACID (test code = POCLAC) 2.68 MMOL/L 0.40-2.00 H RESULTS MARLENE [place] [] [place] [address]/01/18.NMI-MTCRITICA L VALUE READ BACK BY NURSE AND VERIFIED BY TECH? []REFERENCE RANGES FOR: 1) ARTERIAL SAMPLE (0.5-1.6MMOL/L) 2) SPINAL FLUID (0.6-2.2MMOL/L) CBC W/AUTO [id number] 19:08:00* Test Item Value Reference Range Interpretation [...] Notes Date/Time Note Provider Source 2018-12-03 14:02:00 IYzealwupho9130166Fb NQaDIS+/YnCFFqtvMho2YDf1163SV zTJislnL1Dl82b6J6D39ATzM4ycLCLbyN9895-99-46U77:02 :00 [facility] ([facility])Discharge SummaryREPORT#:[id number] REPORT STATUS: SignedDATE:12/03/18 TIME: 1402 PATIENT: SHILA COWART UNIT #: [id number]#: [id number] [facility]-BDOB: [birth year] AGE: 37 SEX: M ATTEND: Keny [...] GERSON.Attending Physician: Attending Physician: Keny Duran MD Foyacpmtou provider 1: Provider 1: Reji Garcia Specialty: OTHER SPECIALTY Phone: [phone] Follow up timeframe: In 1-2 weeks ObjectiveVS/I [...] no guarding, no rebound, no distentionExtremities: moves allNeuro/BATCHER OPERATOR: alert, oriented X 3, normal speechSkin: dry, intactWound/incision: Location:WOUND OF BL FEET. CLEAN AND DRY. ResultsFindings/Data:Laboratory Tests: 12/03 12/03 12/03 12/02 12/02 1052 0447 0419 2035 1715Chemistry Sodium (136 - 145 mmol/L) 138 Potassium [...] % (Auto) (14 - 40 %) 31.2 [place] % (Auto) (4.0 - 10.2 %) 16.2 H Eos % (Auto) (0 - 4.1 %) 3.3 Baso % (Auto) (0.1 - 0.7 %) 0.5 Neut # (Auto) (2.5 - 8.6 K/mm3) 1.9 L Lymph # (Auto) (1.1 - 3.6 K/mm3) 1.2 [place] # (Auto) (0.3 - 0.9 K/mm3) 0.6 Eos # (Auto) (0.0 - 0.4 #) 0.13 Baso # (Auto) (0.0 - 0.2 K/mm3) 0.02 Nucleated RBC % (0 - 0 %) 0 Nucleated RBCs # (Man) (0.00 - 0.20 K/mm3) 0.00 at 1403 RPT #:[id number] OF REPORTDSDischarge iydogik3332-37-63I47:02:00VR.EXZN50696652-5367APN vailable for patient ayelRTPBGVTRPECLUZ8682-14-38C97:03:42 [facility] 2018-12-02 21:18:00 LUquutqbkdt1751700FO 8yRgRGMh6DXJR7Oh7275WjD0GFSy7 tvJWZSKvuL6cTnBGQHuHpTYaFR5GE2STP2576-95-19S65:18 :00 [facility] ([facility])Hospitalist Progress NoteREPORT#:[id number] REPORT STATUS: SignedDATE:12/02/18 TIME: 2117 PATIENT: SHILA COWART UNIT #: [id number]#: [id number] [address] AGE: 37 SEX: M ATTEND: Keny Duran [facility] AUTHOR: Salena Mendoza NP * ALL edits [...] ASDIR PRN IV Sodium Chloride 1,000 ML .Q21O79H IV Tramadol HCl 50 MG Q6H PRN [...] deferredExtremities: moves all, normal capillary refillMusculoskeletal: normal inspectionNeuro/BATCHER OPERATOR: alert, oriented X 3, CNII-XII intact, normal speech Considered stroke alert: noGlasgow Coma Score: Ileana Coma Score: Response Value Patient intubated? no Ileana eyes: eyes open spontaneously 4 Ileana speech: oriented 5 Ileana motor: obeys commands 6 Total 15 Skin: dry, PLANTAR WOUND BILATERAL GREAT TOE, NO DRAINAGE NOTED.Lymphatics: axilla normal, neck normalPsychiatry: normal affect, normal judgment/insight, normal mood ResultsFindings/Data:Laboratory Tests 12/02 1715 1130 0458 0455 Chemistry [...] (Auto) (14 - 40 %) 13.3 L [place] % (Auto) (4.0 - 10.2 %) 8.5 Eos % (Auto) (0 - 4.1 %) 0.6 Baso % (Auto) (0.1 - 0.7 %) 0.2 Neut # (Auto) (2.5 - 8.6 K/mm3) 4.8 Lymph # (Auto) (1.1 - 3.6 K/mm3) 0.8 L [place] # (Auto) (0.3 - 0.9 K/mm3) 0.5 [...] - XR FOOT 2 VIEWS LT 12/01 687 Report Impression - Status: SIGNED Entered: 12/02/2018 0021 IMPRESSION:Mild dorsal soft tissue swelling is present along the left distalfoot. There is question of associated 11 mm focus of subcutaneoussoft tissue gas, correlate for open wound. There is no evidence of an cortical abnormality or focal osteopenia ineither foot to indicate acute osteomyelitis. Impression By: t.TRACE DSOUZA M.D.RADIOLOGY - XR FOOT 2 VIEWS RT 12/01 2306 Report Impression - Status: SIGNED Entered: 12/02/2018 0021 IMPRESSION:Mild dorsal soft tissue swelling is present [...] 1. No evidence of DVT. Impression By: Nellie OGLESBY M.D.ULTRASOUND - DUP LE ART ARAVIND [...] 24 to 48 hours. at 2126 RPT #:[id number] OF REPORTPRProgress Kahy1111-52-00W04:18:00VR.CEDF39476012-6973FKRefr lable for patient skoqUZCHJQBGIWCADU2383-71-30P08:26:21 [facility] 2018-12-02 21:18:00 GIfmxlwwqtl3979923jY Lf6NkE4Pari4NAXsdyjKBZx3dvJy0 ouXOiEpyjCeBCVL5YF4+FvOEZa/bB7xU71855-03-10I78:18 :00 [facility] ([facility])Hospitalist Progress NoteREPORT#:[id number] REPORT STATUS: SignedDATE:12/02/18 TIME: 2117 PATIENT: SHILA COWART UNIT #: [id number]#: [id number] [address] AGE: 37 SEX: M ATTEND: Keny Duran MDA AUTHOR: Salena Mendoza NP * ALL edits [...] ASDIR PRN IV Sodium Chloride 1,000 ML .U21G74C IV Tramadol HCl 50 MG Q6H PRN [...] deferredExtremities: moves all, normal capillary refillMusculoskeletal: normal inspectionNeuro/BATCHER OPERATOR: alert, oriented X 3, CNII-XII intact, normal speech Considered stroke alert: noGlasgow Coma Score: [place] Coma Score: Response Value Patient intubated? no Ileana eyes: eyes open spontaneously 4 Neffs speech: oriented 5 Neffs motor: obeys commands 6 Total 15 Skin: dry, PLANTAR WOUND BILATERAL GREAT TOE, NO DRAINAGE NOTED.Lymphatics: axilla normal, neck normalPsychiatry: normal affect, normal judgment/insight, normal mood ResultsFindings/Data:Laboratory Tests 12/02 1715 1130 0458 0455 Chemistry [...] (Auto) (14 - 40 %) 13.3 L [place] % (Auto) (4.0 - 10.2 %) 8.5 Eos % (Auto) (0 - 4.1 %) 0.6 Baso % (Auto) (0.1 - 0.7 %) 0.2 Neut # (Auto) (2.5 - 8.6 K/mm3) 4.8 Lymph # (Auto) (1.1 - 3.6 K/mm3) 0.8 L [place] # (Auto) (0.3 - 0.9 K/mm3) 0.5 [...] DVT. Impression By: [email or web address] - LLOYD CASE M.D.ULTRASOUND - DUP LE ART ARAVIND 12/02 0339 Report Impression - Status: SIGNED Entered: 12/02/2018 0944 IMPRESSION:1. Scattered atherosclerotic plaque demonstrated. No area of longsegment occlusion or high-grade flow limiting stenosis.Impression By: [email or web address] - LLOYD OGLESBY M.D. Diagnosis, Assessment PlanHospital course to [...] 48 hours. at 2126 at 1029 RPT #:[id number] OF REPORTPRProgress Hfld6806-73-38W52:18:00VR.USDV00781652-4893SJGcln lable for patient rugqZYDHZGECGIBOON3764-44-68J51:29:20 [facility] 2018-12-02 14:02:00 TQcelldhpwb7230708LB pr6fvL2OwofwUAJv1YY7rmhyDmLm3 i5H0YhtbigAdLI37+hmlzGg1S9oU9Nv5/8175-81-80W67:02 :[id number] [facility] [address] [place], [place], [address] PATIENT NAME: SHILA COWART ADMIT DATE: 12/01/18ACCOUNT NO: [id number] ROOM NO: .[facility] AGE: 37 REPORT TYPE: CONSULTATION REPORT SEX: [...] DPM WT: CON:ALICIA/ELIAS/NTSDD: 12/02/2018 14:02:53DT: 12/02/2018 17:41:27Conf#: [id number]/DID#: [id number] Authenticated by Reji Garcia DPM On 12/04/2018 01:28:18 PM at 1328 PATIENT NAME: SHILA COWART :41:00VR. [id number] for patient czbuQNZOGRCNJJJDAR3946-92-57D08:28:11 [facility] 2018-12-02 02:26:00 EQocctlbocm4976483fe 8p5FTx0xcUJ6lSOdNv9xI6I2ryYWO 0MwqdSpRLfGa56Z39l1y76K4wRsRmt0tq7909-62-10K78:26 :[id number] [facility] [address] [place], [place], [address] PATIENT NAME: SHILA COWART ADMIT DATE: 12/01/18ACCOUNT NO: [id number] ROOM NO: [facility] AGE: 37 REPORT TYPE: HISTORY AND [...] MD WT: HP:ALICIA/LOVELY/NTSDD: 12/02/2018 02:26:17DT: 12/02/2018 03:04:37Conf#: [id number]/DID#: [id number] and Edited by Sunday Mendoza NP On 12/02/18 9:16:57 PMAuthenticated and Edited by Keny Duran MD On 12/04/18 10:26:10 AM PATIENT NAME: SHILA COWART at 1029 at 1029 PATIENT NAME: SHILA COWART and physical xgizibooryg5254-57-90R86:04:00VR.[id number] AVAvailable for patient xtelDFKTGHSKOAHNVQ6069-95-82U04:29:21 [facility] 2018-12-01 18:45:00 BNbuwfollws0335678N2 ulDxFY/TP8N3u6M//sTt2/3/GMKbI 2mE0kw807efK707+XP/9j7iZ7LUgShT8t7330-20-36M72:45 :00 [facility] ([facility])EMERGENCY PROVIDER REPORTREPORT#:[id number] REPORT STATUS: SignedDATE:12/01/18 TIME: 1845 PATIENT: SHILA COWART UNIT #: [id number]#: [id number] [address] SEX: M PCP PHYS: Keny Duran MDSERVHEATHER AUTHOR: Xavier Maguire MD * ALL edits or amendments must be made on the electronic/computer document * HPI-Fever GeneralConfirmed Patient YesPatient Type New patientInitial Greet Date/Time 12/01/181836PNo PCP PresentationChief Complaint feverHx Obtained From Patient)( [...] scribed by Alison Whitfield on 12/01/18 at 2033 Physical Exam Vital SignsVital SignsFirst Documented: Result [...] Tests 12/01/18 1853:[Embedded Image Not Available]Laboratory Tests: 12/01Blood Gas VBG Total CO2 (24 - 30 [...] pH (5.0 - 8.5) 6.0 Ur Specific [place] (1.000 - 1.030) 1.010 Urine Protein (NEGATIVE) NEGATIVE Urine Glucose (UA) (NEGATIVE) >=1000 Urine Ketones (NEGATIVE) NEGATIVE Urine Blood (NEGATIVE) NEGATIVE Urine Nitrite (NEGATIVE) NEGATIVE Urine Bilirubin (NEGATIVE) NEGATIVE Urine Urobilinogen (<=1.0 EU/DL) 0.2 EU/DL Ur Leukocyte Esterase (NEGATIVE) NEGATIVE Urine RBC (0 - 5) 0-2 Urine WBC (0 - 5) 2-5 Ur Squamous Epith Cells (NONE SEEN #/lpf) 5-10 12/01 1853 Chemistry Mean Blood Glucose 228.8 Hemoglobin A1c [...] Coagulation INR (0.93 - 1.2) 1.06 PTT ([place]) (23.0 - 32.0 SECONDS) 27.0 PT Patient/Control [...] (Auto) (14 - 40 %) 11.3 L [place] % (Auto) (4.0 - 10.2 %) 5.7 Eos % (Auto) (0 - 4.1 %) 0.6 Baso % (Auto) (0.1 - 0.7 %) 0.3 Neut # (Auto) (2.5 - 8.6 K/mm3) 7.0 Lymph # (Auto) (1.1 - 3.6 K/mm3) 1.0 L [place] # (Auto) (0.3 - 0.9 K/mm3) 0.5 [...] 1858 Influenza Virus Type B Antigen - COMP NASOPHARG 12/01 1858 Influenza Virus Type A Antigen - COMP NASOPHARG 12/01 1852 Blood Culture - RES BLOOD 12/01 1852 Blood Culture - RES BLOOD 12/01 1848 Group A Streptococcus Screen (DEBRA) - COLB THROAT Recent Impressions:CAT SCAN - CT CHEST W/O CONTRAST 12/01 0534 Report Impression - Status: SIGNED Entered: 12/02/2018 0554 IMPRESSION: 1. No focal consolidation. No other acute abnormalities on thislimited noncontrast examination.Impression By: [email or web address] - LLOYD OGLESBY M.D.RADIOLOGY - XR CHEST 1 V 12/01 2029 Report Impression - Status: SIGNED Entered: 12/01/20182044 IMPRESSION:Asymmetric opacity in the right lung base may represent atelectasis ordeveloping infiltrate. Impression By: AmandaNS15 - DONTRELL DSOUZA M.D. Lab StatementLaboratory studies reviewed and considered in the medical decision-making. Imaging StatementRadiographic studies reviewed and considered in the medical decision-making. ECG #1 InterpretationDate 12/01/18Time 1847Interpreted by ED physicianNL ECG Interpretation No STEMIRate 103ECG Q-T-ST - ND cannot rule out anterior infarct (age undetermined)Rhythm Tachycardia Portions of this section were scribed by Alison Whitfield on 12/01/18 at 2114 Re-Evaluation MDM Free Text MDM NotesFree Text [...] Result Date Time Pulse Ox 95 12/01 1823 B/P 168/75 12/01 1822 B/P Mean 106 [...] patient has been stabilized within the capability ofthe emergency department. The patient will be transported [...] Whitfield on 12/01/18 at 2048 at 2241RPT #:[id number] OF REPORTEDEmergency department qfwtqg2527-54-25G33:45:00VR.AFKF11016827-4627MDRq ailable for patient khgtZNNMJLSHNEVFRG2423-37-28B11:41:18 [facility]
[2024-02-03] MEDS ORDERED: ONDANSETRON 4 MG/2 ML VIAL ONE (15:55)
[2024-02-03] MEDS ORDERED: CLINDAMYCIN 600MG/D5W 50 ML IV ONE (15:55)
[2024-02-03] MEDS ORDERED: MORPHINE 4 MG/ML SYR ONE (15:55)
[2024-02-03 16:02] LABS: Absolute Eosinophils 0.1 K/uL (0-0.5); Absolute Lymphocytes (CBC) 1.5 K/uL (0.7-4.9); Absolute Monocytes 0.5 K/uL (0.1-1.3); Basophils % 0.5 % (0-1.3); Eosinophils % 1.1 % (0-4.4); Hematocrit 39.6 % (39.6-49.0); Hemoglobin 13.3 g/dL (13.6-17.9); Lymphocytes % 20.8 % (15.3-44.8); MCH 29.7 pg (27.0-35.0); MCHC 33.6 g/dL (32.0-36.0); MCV 88.5 fL (80-100); MPV 8.8 fL (7.6-11.3); Monocytes % 7.3 % (3.3-12.3); Neutrophils % 70.3 % (41.7-73.7); Platelets 240 thou/uL (152-406); RBC Red Blood Cell Count 4.47 M/uL (4.33-5.43); Red Cell Distribution Width 13.6 % (12.1-15.2)
[2024-02-03 16:07] LABS: PT Prothrombin Time 11.6 SECONDS (9.5-12.5); PTT, Activated Partial Thromb 33.8 SECONDS (24.3-36.9); Protime INR 1.06
[2024-02-03 16:18] LABS: Albumin 2.9 g/dL (3.4-5.0); Albumin/Globulin Ratio 0.6 (1.1-1.8); Anion Gap 6.8 mEq/L (5.0-15.0); Bilirubin Total 0.5 mg/dL (0.2-1.0); Globulin 4.9 g/dL (2.3-3.5); Potassium 3.8 mEq/L (3.5-5.1); Protein, Total 7.8 g/dL (6.4-8.2)
--- NOTE | 2024-02-03 16:36 | RAD REPORT ---
EXAM DESCRIPTION: RAD - Foot Right 3 View - 02/03/2024 3:18 pm CLINICAL HISTORY: swelling, eval for osteomyelitis;Pain COMPARISON: Foot Right Wo Cont dated 09/04/2021; Foot Right 3 View dated 09/03/2021 TECHNIQUE: Right foot, 3 views. FINDINGS: Progressive subchondral cystic changes along the head of the great toe proximal phalanx tr auma with marginal endplate remodeling. Findings are favored to be chronic. New osseous destructive changes along the distal aspect of the third digit distal phalanx. No fracture, dislocation or other osseous destructive changes. Moderate calcaneal spur. Soft tissue swelling about the dorsum of the foot. No air or foreign body in the soft tissues. IMPRESSION: New osseous destructive changes along the distal aspect of the third digit distal phalan x, concerning for ongoing acute osteomyelitis.
--- NOTE | 2024-02-03 17:04 | EDPHYS ---
Physician Documentation [facility] Name: Addy Quintana Jr Age: 43 yrs Sex: Male : 1980 Arrival Date: 02/03/2024 Time: 14:48 Bed 16 Private MD: ED Physician Pelon Ram HPI: 02/02 17:04 This 43 yrs old Male presents to ER via Ambulatory with complaints of Toe rn Injury, Leg Swelling. 17:04 The patient presents with cellulitis of the right foot. Onset: The symptoms/episode rn began/occurred 2 day(s) ago. Possible cause(s): unknown. Modifying factors: the symptoms are alleviated by nothing, the symptoms are aggravated by pressure, touching. Severity of symptoms: At their worst the symptoms were moderate, in the emergency department the symptoms are unchanged. The patient has experienced similar episodes in the past. Patient reports pain, swelling, redness to right third toe that extends up towards ankle and dockery. Denies fever. Does not check his glucose. States takes metformin. No known trauma. Noticed redness and swelling to foot and leg with increased pain.. Historical: - Allergies: 14:57 VANCOMYCIN AND DERIVATIVES; ld1 - PMHx: 14:57 Diabetes - IDDM; Hypercholesterolemia; DVT; Hypertension; neuropathy; ld1 - PSHx: 14:57 Dion knee sx; ld1 - Immunization history:: Adult Immunizations up to date. - Infectious Disease History:: Denies. - Social history:: Smoking status: Patient denies any tobacco usage or history of. - Family history:: not pertinent. - Hospitalizations: : No recent hospitalization is reported. ROS: 17:09 Constitutional: Negative for fever, chills, and weight loss, MS/Extremity: Positive for rn right third toe and foot swelling and pain Exam: 17:09 Constitutional: This is a well developed, well nourished patient who is awake, alert, rn and in no acute distress. Cardiovascular: Tachycardic, regular. No pulse deficits. Respiratory: No increased work of breathing, no retractions or nasal flaring. Abdomen/GI: Soft, nontender Skin: 5 cm irregular wound to the bottom of the left foot with greenish hue and serous drainage, no purulence. MS/ Extremity: Pulses equal, no cyanosis. Positive erythema and warmth with swelling and purulence of the right third digit with extension to the dorsum of the foot and up towards distal pretibial region. No gas or crepitus palpated 17:27 ECG was reviewed by the Attending Physician. rn Vital Signs: 15:00 Pulse 106; Resp 18; Temp 98.2(TE); Pulse Ox 98% on R/A; Weight 132.9 kg; Height 6 ft. 0 ld1 in. ; Pain 10/10; 15:01 BP 130 / 74; ld1 16:00 BP 120 / 88; Pulse 93; Resp 18; Pulse Ox 97% ; cp4 17:00 BP 139 / 86; Pulse 79; Resp 18; Pulse Ox 96% ; cp4 18:00 BP 133 / 84; Pulse 81; Resp 18; Pulse Ox 99% ; cp4 15:00 Body Mass Index 39.74 (132.90 kg, 182.88 cm) ld1 15:00 Pain Scale: Adult ld1 MDM: 14:54 Patient medically screened. rn 17:09 Differential diagnosis: cellulitis, Lymphangitis, cellulitis, osteomyelitis. Data rn reviewed: vital signs, nurses notes, lab test result(s), radiologic studies, plain films, ultrasound, and as a result, I will admit patient. Consideration of Admission/Observation Patient was admitted/placed on observation. Escalation of care including admission/observation considered. Care significantly affected by the following chronic conditions: Diabetes, Hypertension. Counseling: I had a detailed discussion with the patient and/or guardian regarding the historical points, exam findings, and any diagnostic results supporting the discharge/admit diagnosis, lab results, the need for further work-up and treatment in the hospital. Response to treatment: the patient's symptoms have mildly improved after treatment, and as a result, I will admit patient. 02/02 15:04 Order name: Blood Culture Adult (2) rn 02/02 15:04 Order name: CBC with Diff; Complete Time: 16:34 rn 02/02 15:04 Order name: CMP; Complete Time: 16:34 rn 02/02 15:04 Order name: Lactate w/ 2H reflex if indic.; Complete Time: 16:34 rn 02/02 15:04 Order name: Protime (+inr); Complete Time: 16:34 rn 02/02 15:04 Order name: Ptt, Activated; Complete Time: 16:34 rn 02/02 17:44 Order name: CBC with Automated Diff EDMS 02/02 17:44 Order name: CBC with Automated Diff EDMS 02/02 17:44 Order name: Comprehensive Metabolic Panel EDMS 02/02 17:44 Order name: Comprehensive Metabolic Panel EDMS 02/02 17:44 Order name: Magnesium EDMS 02/02 17:44 Order name: Magnesium EDMS 02/02 15:04 Order name: XRAY Foot RIGHT 3 View; Complete Time: 16:57 rn 02/02 16:06 Order name: Extremity Venous Uni Ltd US; Complete Time: 17:21 rn 02/02 16:06 Order name: Lower Extremity Artery Uni Ltd US; Complete Time: 17:21 rn 02/02 15:04 Order name: EKG; Complete Time: 15:05 rn 02/02 15:04 Order name: Accucheck; Complete Time: 15:53 rn 02/02 15:04 Order name: Cardiac monitoring; Complete Time: 15:53 rn 02/02 15:04 Order name: EKG - Nurse/Tech; Complete Time: 16:56 rn 02/02 15:04 Order name: IV Saline Lock - Large Bore; Complete Time: 15:53 rn 02/02 15:04 Order name: Labs collected and sent; Complete Time: 15:53 rn 02/02 15:04 Order name: O2 Per Protocol; Complete Time: 15:53 rn 02/02 15:04 Order name: O2 Sat Monitoring; Complete Time: 15:53 rn 02/02 15:04 Order name: Vital Signs; Complete Time: 15:53 rn EC:27 Rate is 80 beats/min. Rhythm is regular. QRS [place] is Normal. SC interval is normal. QRS rn interval is normal. QT interval is normal. No Q waves. T waves are Normal. No ST changes noted. Clinical impression: Normal ECG. Interpreted by me. Reviewed by me. Administered Medications: 16:06 Drug: morphine IVP or IV 4 mg IVP once over 4 mins Route: IVP; Infused Over: 4 mins; cp4 Site: left antecubital; 18:05 Follow up: Response: No adverse reaction; Pain is decreased cp4 16:06 Drug: Ondansetron IVP 4 mg IVP once; over 2 minutes Route: IVP; Site: left antecubital; cp4 16:06 Drug: Clindamycin IVPB 600 mg IVPB once over 30 mins; (mix in 50 mL) Route: IVPB; cp4 Infused Over: 30 mins; Site: left antecubital; 18:04 Follow up: Response: No adverse reaction; IV Status: Completed infusion cp4 18:03 Drug: NS 0.9% IV 500 ml IV at bolus once Route: IV; Rate: bolus; Site: left antecubital;cp4 18:05 Follow up: Response: No adverse reaction cp4 18:56 Follow up: Response: No adverse reaction; IV Status: Completed infusion iw 18:04 Drug: Insulin Regular Human Sub-Q 10 units Sub-Q once {Co-Signature: rs5 (Alfredo Sarkar cp4 RN).} Route: Sub-Q; Site: left upper arm; 18:57 Follow up: Response: No adverse reaction iw 18:04 Drug: Cefepime IVPB 1 grams IVPB at 200 ml/hr once over 30 mins; (mix in NS 100 mL) cp4 Route: IVPB; Rate: 200 ml/hr; Infused Over: 30 mins; Site: left antecubital; 18:57 Follow up: IV Status: Completed infusion iw Disposition Summary: 02/03/24 17:04 Hospitalization Ordered Notes: Hospitalization Status: Inpatient Admission rn Provider: Everardo Ram rn Location: Telemetry/[facility] (Inpatient) rn Condition: Stable rn Problem: new rn Symptoms: have improved rn Bed/Room Type: Standard rn Room Assignment: 223(02/03/24 17:53) bd Diagnosis - Cellulitis of right toe rn - Cellulitis of right lower limb rn - Osteomyelitis, unspecified rn - Hyperglycemia, unspecified rn Forms: - Medication Reconciliation Form rn - SBAR form rn - Leadership Thank You Letter rn Signatures: Dispatcher [employer] EDMS Earline Johnson bd Pelon Ram MD MD rn Sims, Lauren, RN RN Geeta Marcial cp4 Anastasiya Marquez RN iw Alfredo Sarkar RN rs5 Corrections: (The following items were deleted from the chart) 15:05 15:05 BLOOD CULTURE*+BA.LAB.BRZ ordered. EDMS EDMS 15:05 15:05 CBC+H.LAB.BRZ ordered. EDMS EDMS 15:05 15:05 COMPREHENSIVE METABOLIC PANEL+C.LAB.BRZ ordered. EDMS EDMS 15:05 15:05 LACTATE+C.LAB.BRZ ordered. EDMS EDMS 15:05 15:05 PROTIME (+INR)+COAG.LAB.BRZ ordered. EDMS EDMS 15:05 15:05 PTT, ACTIVATED+COAG.LAB.BRZ ordered. EDMS EDMS 16:06 16:06 Lower Extremity Artery Uni Ltd+US.RAD.BRZ ordered. EDMS EDMS 17:45 17:09 Constitutional: This is a well developed, well nourished patient who is awake, rn alert, and in no acute distress. Cardiovascular: Tachycardic, regular. No pulse deficits. Respiratory: No increased work of breathing, no retractions or nasal flaring. Abdomen/GI: Soft, nontender MS/ Extremity: Pulses equal, no cyanosis. Positive erythema and warmth with swelling and purulence of the right third digit with extension to the dorsum of the foot and up towards distal pretibial region. No gas or crepitus palpated rn 17:53 17:04 rn bd
--- NOTE | 2024-02-03 17:04 | ER ---
Nurse's Notes [facility] Name: Addy Quintana Jr Age: 43 yrs Sex: Male : 1980 Arrival Date: 02/03/2024 Time: 14:48 Bed 16 Private MD: Diagnosis: Cellulitis of right toe;Cellulitis of right lower limb;Osteomyelitis, unspecified;Hyperglycemia, unspecified Presentation: 02/02 14:58 Coronavirus screen: At this time, the client does not indicate any symptoms associated ld1 with coronavirus-19. Ebola Screen: No symptoms or risks identified at this time. Initial Sepsis Screen: Does the patient meet any 2 criteria? No. Patient's initial sepsis screen is negative. Does the patient have a suspected source of infection? No. Patient's initial sepsis screen is negative. Risk Assessment: Do you want to hurt yourself or someone else? Patient reports no desire to harm self or others. Onset of symptoms was February 03, 2024. 14:58 Method Of Arrival: Ambulatory ld1 14:58 Acuity: FLORENCIO 3 ld1 15:01 Chief complaint: Patient states: Pain to right middle toe. "I think my work boots ld1 rubbed on my toe, my whole leg is swollen and hurts really bad.". Triage Assessment: 15:01 General: Appears in no apparent distress. uncomfortable, Behavior is calm, cooperative, ld1 appropriate for age. Pain: Complains of pain in right foot Pain does not radiate. Pain currently is 10 out of 10 on a pain scale. Quality of pain is described as throbbing. EENT: No signs and/or symptoms were reported regarding the EENT system. Neuro: Level of Consciousness is awake, alert, obeys commands, Oriented to person, place, time, situation. Cardiovascular: Capillary refill < 3 seconds Patient's skin is warm and dry. Respiratory: Airway is patent Respiratory effort is even, unlabored. GI: Abdomen is round non-distended. : No signs and/or symptoms were reported regarding the genitourinary system. Derm: Wound noted right foot. Musculoskeletal: No signs and/or symptoms reported regarding the musculoskeletal system. Historical: - Allergies: 14:57 VANCOMYCIN AND DERIVATIVES; ld1 - PMHx: 14:57 Diabetes - IDDM; Hypercholesterolemia; DVT; Hypertension; neuropathy; ld1 - PSHx: 14:57 Dion knee sx; ld1 - Immunization history:: Adult Immunizations up to date. - Infectious Disease History:: Denies. - Social history:: Smoking status: Patient denies any tobacco usage or history of. - Family history:: not pertinent. - Hospitalizations: : No recent hospitalization is reported. Screenin:04 [facility] ED Fall Risk Assessment (Adult) History of falling in the last 3 months, iw including since admission No falls in past 3 months (0 pts) Confusion or Disorientation No (0 pts) Intoxicated or Sedated No (0 pts) Impaired Gait No (0 pts) Mobility Assist Device Used No (0 pt) Altered Elimination No (0 pt) Score/Fall Risk Level 0 - 2 = Low Risk Oriented to surroundings, Maintained a safe environment, Assessed \\T\\ reinforced patient's understanding of fall precautions, Hourly rounding (assess needs \\T\\ fall precautionary measures) done. Abuse screen: Denies threats or abuse. Nutritional screening: No deficits noted. Tuberculosis screening: No symptoms or risk factors identified. Assessment: 19:04 General: Appears uncomfortable, Behavior is calm, cooperative, appropriate for age. iw Pain:. Derm: Decubitus located on right left feet. Vital Signs: 15:00 Pulse 106; Resp 18; Temp 98.2(TE); Pulse Ox 98% on R/A; Weight 132.9 kg; Height 6 ft. 0 ld1 in. ; Pain 10/10; 15:01 BP 130 / 74; ld1 16:00 BP 120 / 88; Pulse 93; Resp 18; Pulse Ox 97% ; cp4 17:00 BP 139 / 86; Pulse 79; Resp 18; Pulse Ox 96% ; cp4 18:00 BP 133 / 84; Pulse 81; Resp 18; Pulse Ox 99% ; cp4 15:00 Body Mass Index 39.74 (132.90 kg, 182.88 cm) ld1 15:00 Pain Scale: Adult ld1 ED Course: 13:48 Initial lab(s) drawn, by me, sent to lab. First set of blood cultures drawn by me. cp4 Inserted saline lock: 20 gauge in left antecubital area, using aseptic technique. Blood collected. 14:49 Patient arrived in ED. rg4 14:54 Pelon Ram MD is Attending Physician. rn 14:58 Triage completed. ld1 15:01 Arm band placed on right wrist. ld1 15:15 Geeta Scott is Primary Nurse. cp4 15:19 XRAY Foot RIGHT 3 View In Process Unspecified. EDMS 15:53 Blood Culture Adult (2) Sent. cp4 15:53 CBC with Diff Sent. cp4 15:53 CMP Sent. cp4 15:53 Lactate w/ 2H reflex if indic. Sent. cp4 15:53 Protime (+inr) Sent. cp4 15:53 Ptt, Activated Sent. cp4 16:45 Extremity Venous Uni Ltd US In Process Unspecified. EDMS 16:45 Lower Extremity Artery Uni Ltd US In Process Unspecified. EDMS 17:03 Everardo Ram MD is Hospitalizing Provider. rn 19:04 Bed in low position. Call light in reach. Side rails up X 1. Provided Education on: iw cellulitis. 19:04 No provider procedures requiring assistance completed. Patient admitted, IV remains in iw place. Administered Medications: 16:06 Drug: morphine IVP or IV 4 mg IVP once over 4 mins Route: IVP; Infused Over: 4 mins; cp4 Site: left antecubital; 18:05 Follow up: Response: No adverse reaction; Pain is decreased cp4 16:06 Drug: Ondansetron IVP 4 mg IVP once; over 2 minutes Route: IVP; Site: left antecubital; cp4 16:06 Drug: Clindamycin IVPB 600 mg IVPB once over 30 mins; (mix in 50 mL) Route: IVPB; cp4 Infused Over: 30 mins; Site: left antecubital; 18:04 Follow up: Response: No adverse reaction; IV Status: Completed infusion cp4 18:03 Drug: NS 0.9% IV 500 ml IV at bolus once Route: IV; Rate: bolus; Site: left antecubital;cp4 18:05 Follow up: Response: No adverse reaction cp4 18:56 Follow up: Response: No adverse reaction; IV Status: Completed infusion iw 18:04 Drug: Insulin Regular Human Sub-Q 10 units Sub-Q once {Co-Signature: rs5 (Alfredo Sarkar cp4 RN).} Route: Sub-Q; Site: left upper arm; 18:57 Follow up: Response: No adverse reaction iw 18:04 Drug: Cefepime IVPB 1 grams IVPB at 200 ml/hr once over 30 mins; (mix in NS 100 mL) cp4 Route: IVPB; Rate: 200 ml/hr; Infused Over: 30 mins; Site: left antecubital; 18:57 Follow up: IV Status: Completed infusion iw Medication: 19:04 VIS not applicable for this client. iw Outcome: 17:04 Decision to Hospitalize by Provider. rn 19:04 Admitted to Med/surg accompanied by nurse, via wheelchair, iw 19:04 Condition: stable 19:04 Instructed on the need for admit, Demonstrated understanding of instructions, follow-up care, 19:08 Patient left the ED. iw Signatures: Dispatcher [employer] EDAnastasiya Galvez RN RN iw Pelon Ram MD MD rn Garcia, Rubi rg4 Cookie Mueller RN RN ld1 Geeta Scott cp4 Alfredo Sarkar RN rs5
--- NOTE | 2024-02-03 17:17 | RAD REPORT ---
EXAM DESCRIPTION: US - Extremity Venous Uni Ltd - 02/03/2024 4:43 pm CLINICAL HISTORY: Pain, swelling COMPARISON: None. TECHNIQUE: Real-time sonographic evaluation of the right lower extremity deep venous system was perf ormed. FINDINGS: Normal compressibility, flow augmentation, phasic flow and spontaneous flow is identified in the right lower extremity deep venous system. No intraluminal filling defects seen. Prominent rig ht groin lymph node with preserved fatty hilum measuring 2.7 cm in short axis. IMPRESSION: No DVT in the right lower extremity. Prominent right groin lymph node, nonspecific, and could relate to an infectious/inflammatory process , although malignancy or blood dyscrasias can produce similar findings.
--- NOTE | 2024-02-03 17:18 | RAD REPORT ---
EXAM DESCRIPTION: US - Lower Extremity Artery Uni Ltd - 02/03/2024 4:43 pm CLINICAL HISTORY: Pain;Swelling COMPARISON: Lower Extremity Arterial Bilat dated 09/04/2021 TECHNIQUE: Right lower extremity arterial Doppler examination was performed with waveform tracing. FINDINGS: Triphasic waveforms are seen throughout the right lower extremity arterial system to the level of the dorsalis pedis artery. Moderate subcutaneous soft tissue swelling along the lower leg. IMPRESSION: No evidence of significant peripheral vascular disease.
[2024-02-03] MEDS ORDERED: ONDANSETRON 4 MG/2 ML VIAL IV PRN (17:41)
[2024-02-03] MEDS ORDERED: INSULIN REGULAR (HUMAN) 100 UNIT/ML ONE (17:53)
[2024-02-03] MEDS ORDERED: NA CHLORIDE 0.9% 500 ML ONE (17:54)
[2024-02-03] MEDS ORDERED: CEFEPIME 1 GM/VIAL ONE (17:55)
[2024-02-03] MEDS ORDERED: NA CHLORIDE 0.9% 100 ML ONE (17:55)
--- NOTE | 2024-02-03 18:21 | P.HP ---
Certification for Inpatient Patient admitted to: Inpatient With expected LOS: >2 Midnights Practitioner: I am a practitioner with admitting privileges, knowledge of patient current condition, hospital course, and medical plan of care. Services: Services provided to patient in accordance with Admission requirements found in Title 42 Section 412.3 of the Code of Federal Regulations Patient History Date of Service: 02/03/24 Reason for admission: Pain Right Foot History of Present Illness: 43 yo Male with past medical history of IDDM , Hypercholesterolemia , DVT ; Hypertension; Diabetic neuropathy who came to ER with pain and swelling in the right lower extremity and right foot. Patient stated that he noticed there is some swelling and redness in the right foot 3 days ago which got progressively worsened over the weekend. Started having severe pain and swelling. Associated erythema. No discharge. No fever or chills. No nausea vomiting or diarrhea. No sick contacts. Patient was assessed in the ER and had a CT which was suggestive of early osteomyelitis of the foot and cellulitis of the right lower extremity and was admitted for further management Allergies vancomycin Allergy (Severe, Verified 07/13/22 01:27) Hives/Rash Home medications list reviewed: Yes Home Medications: Gabapentin 600 mg PO BID 05/25/20 Metformin HCl 1,000 mg PO BID 05/25/20 Insulin Degludec [Tresiba Flextouch U-100] 40 unit SQ SEECOM 09/04/21 Allopurinol 300 mg PO BEDTIME 06/16/22 - Past Medical/Surgical History Diabetic: Yes Past Medical History: Reviewed- Non-Contributory -: Diabetes -: diabetic ulcers -: neuropathy -: sleep apnea -: DVT R leg -: vericose veins -: lymphedema -: rhabdomyolysis -: HTN Past Surgical History: Reviewed- Non-Contributory -: jarvis lower leg surgery: broke and straightened -: debridement bilat great toes -: BLE vein surgery -: tonsillectomy Psychosocial/ Personal History: Patient lives at home. - Family History Father -: Diabetes Mother -: Diabetes Notes: hyotension - Social History Alcohol use: Yes CD- Drugs: No Caffeine use: Yes Review of Systems 10-point ROS is otherwise unremarkable Musculoskeletal: Leg Pain, Foot Pain, Pedal edema Integumentary: Lesions Physical Examination - Vital Signs Temperature: 98.2 F Blood Pressure: 138/88 Pulse: 106 Respirations: 18 Pulse Ox (%): 96 - Physical Exam General: Alert, In no apparent distress, Oriented x3, Obese HEENT: Atraumatic, Normocephalic Neck: Supple, 2+ carotid pulse no bruit Respiratory: Clear to auscultation bilaterally, Normal air movement Cardiovascular: No edema, Regular rate/rhythm, Normal S1 S2 Capillary refill: <2 Seconds Gastrointestinal: Soft and benign, W/out hepatosplenomegaly Musculoskeletal: No clubbing, Swelling, Erythema, Tenderness, Warmth Integumentary: Tenderness/swelling, Erythema, Warmth, Cyanosis Neurological: Normal speech, Normal strength at 5/5 x4 extr Lymphatics: No axilla or inguinal lymphadenopathy - Studies Laboratory Data (last 24 hrs) 02/03/24 02/03/24 02/03/24 15:48 15:48 15:48 WBC 7.10 Hgb 13.3 L Hct 39.6 Plt Count 240 PT 11.6 INR 1.06 APTT 33.8 Sodium 132 L Potassium 3.8 BUN 16 Creatinine 0.92 Glucose 464 H* Total Bilirubin 0.5 AST 7 L ALT 24 Alkaline Phosphatase 103 Imagings Data: [id number] FINDINGS: Progressive subchondral cystic changes along the head of the great toe proximal phalanx trauma with marginal endplate remodeling. Findings are favored to be chronic. New osseous destructive changes along the distal aspect of the third digit distal phalanx. No fracture, dislocation or other osseous destructive changes. Moderate calcaneal spur. Soft tissue swelling about the dorsum of the foot. No air or foreign body in the soft tissues. IMPRESSION: New osseous destructive changes along the distal aspect of the third digit distal phalanx, concerning for ongoing acute osteomyelitis. Assessment and Plan - Problems (Diagnosis) (1) Diabetic foot ulcer Current Visit: No Status: Acute Plan: Monitor closely on telemetry Wound care Started on IV antibiotic Pain control Will get a podiatry consult Qualifiers: Diabetic foot ulcer location: toe Diabetes mellitus type: type 2 Laterality: right Non-pressure ulcer stage: with bone involvement without evidence of necrosis Qualified Code(s): E11.621 - Type 2 diabetes mellitus with foot ulcer; L97.516 - Non-pressure chronic ulcer of other part of right foot with bone involvement without evidence of necrosis (2) Osteomyelitis Current Visit: No Status: Acute Plan: Started on IV antibiotics Pain Control Blood Cultures Will Change antibiotics as per sensitivity Podiatry consult Will get CBC , CMP in AM Monitor CRP in AM Qualifiers: Osteomyelitis type: unspecified type Osteomyelitis location: foot Laterality: right Qualified Code(s): M86.9 - Osteomyelitis, unspecified (3) Diabetes mellitus Current Visit: No Status: Chronic Plan: Diabetes with Hyperglycemia Insulin Sliding scale Accucheck qAC and HS Will Continue home medications Will get an A1c in AM Qualifiers: (4) Hypertension Current Visit: No Status: Chronic Plan: Continue Home medications Titrate as needed Qualifiers: (5) Morbid obesity Current Visit: No Status: Chronic Plan: Advised Life Style modifications Discharge Plan: Home Plan to discharge in: 48 Hours - Advance Directives Does patient have a Living Will: No Does patient have a Durable POA for Healthcare: No - Code Status/Comfort Care Code Status: Full Code Time Spent Managing Pts Care (In Minutes): 54
[2024-02-03] MEDS: MORPHINE 2 MG/ML SYR IV PRN (19:58)
[2024-02-03] MEDS: GABAPENTIN 300 MG CAP PO SCH (20:01)
[2024-02-03] MEDS: DOXYCYCLINE 100 MG CAP PO SCH (20:01)
[2024-02-03] MEDS: ENOXAPARIN 40 MG/0.4 ML SQ SCH (20:01)
[2024-02-03] MEDS: allopurinoL 300 MG TAB PO SCH (20:01)
[2024-02-03] MEDS: INSULIN REGULAR (HUMAN) 100 UNIT/ML SQ SCH (21:35)
[2024-02-03] MEDS: HYDROCODONE/APAP 10/325 TAB PO PRN (22:12)
[2024-02-04] MEDS: MORPHINE 4 MG/ML SYR IV PRN (00:16)
[2024-02-04] MEDS: CEFEPIME 2 GM in NA CHLORIDE 0.9% 100 ML IV SCH (00:20)
[2024-02-04 01:20] VITALS: BMI 39.7
[2024-02-04 04:09] LABS: Absolute Eosinophils 0.2 K/uL (0-0.5); Absolute Lymphocytes (CBC) 2.1 K/uL (0.7-4.9); Absolute Monocytes 0.7 K/uL (0.1-1.3); Absolute Neutrophil 3.8 K/uL (1.8-8.0); Basophils % 0.5 % (0-1.3); Eosinophils % 2.2 % (0-4.4); Hematocrit 36.2 % (39.6-49.0); Hemoglobin 12.5 g/dL (13.6-17.9); Lymphocytes % 31.4 % (15.3-44.8); MCH 30.6 pg (27.0-35.0); MCHC 34.4 g/dL (32.0-36.0); MCV 88.9 fL (80-100); MPV 8.5 fL (7.6-11.3); Monocytes % 9.8 % (3.3-12.3); Neutrophils % 56.1 % (41.7-73.7); Nucleated Red Blood Cells % 0.2 % (0-0); Platelets 211 thou/uL (152-406); RBC Red Blood Cell Count 4.07 M/uL (4.33-5.43); Red Cell Distribution Width 13.4 % (12.1-15.2)
[2024-02-04 04:27] LABS: ALT/SGPT 21 U/L (16-61); Albumin 2.4 g/dL (3.4-5.0); Albumin/Globulin Ratio 0.6 (1.1-1.8); Alkaline Phosphatase 78 U/L (45-117); Anion Gap 3.7 mEq/L (5.0-15.0); BUN Blood Urea Nitrogen 15 mg/dL (7-18); Bicarbonate 32 mEq/L (21-32); Bilirubin Total 0.4 mg/dL (0.2-1.0); Globulin 4.3 g/dL (2.3-3.5); Glomerular Filtration Rate 113 ml/min (=/>90); Glucose Level 259 mg/dL (74-106); Magnesium 1.6 mg/dL (1.6-2.4); Potassium 3.7 mEq/L (3.5-5.1); Protein, Total 6.7 g/dL (6.4-8.2); Sodium Level 134 mEq/L (136-145)
[2024-02-04 04:39] LABS: AST/SGOT < 4 U/L (15-37)
[2024-02-04] MEDS: MAGNESIUM SULFATE 1 gm IVPB 1 GM/100 ML BAG IV ONE (05:25)
[2024-02-04] MEDS: POTASSIUM CL SA 10 MEQ TAB PO ONE (08:09)
[2024-02-04] MEDS: HOME MED 1 EA UNK (Insulin Degludec [Tresiba Flextouch U-100] 100 UNIT/ML Insuln.Pen) SQ SCH (09:00)
[2024-02-04] MEDS: ACETAMINOPHEN 500 MG TAB PO PRN (10:00)
--- NOTE | 2024-02-04 14:44 | EKG ---
Test Date: 2024-02-03 Test Time: 16:51:36 Reading Professor: BRYANT MEASUREMENT RESULTS: Intervals: Rate: 80 IN: 148 QRSD: 90 QT: 376 QTc: 433 [place]: P: 30 IN: 148 QRS: 18 T: 6 INTERPRETIVE STATEMENTS: Normal sinus rhythm Normal ECG Compared to ECG 03/19/2023 02:43:46 Sinus tachycardia no longer present Electronically Signed On 02-04-24 14:43:31 CDT by Scott Tracey
[2024-02-04] MEDS: NA CHLORIDE 0.9% 100 ML ONE (16:41)
--- NOTE | 2024-02-04 18:40 | P.PN ---
Subjective Date of Service: 02/04/24 Chief Complaint: Pain Right Foot Physical Examination - Vital Signs Temperature: 97.3 F Blood Pressure: 176/85 Pulse: 77 Respirations: 16 Pulse Ox (%): 96 Assessment And Plan - Plan Physical examination General: Alert and oriented x3, NAD, obese HEENT: anicteric sclera Neck: Supple, no elevated JVD Heart: Heart sounds 1 and 2 normal, regular rhythm, normal rate, no pedal edema Lungs: Clear to auscultation bilaterally, adequate breath sounds bilaterally, no rhonchi or crackles. Abdomen: Soft, nondistended, nontender, normal bowel sounds. Extremities: No tenderness, no deformity Skin: Normal skin turgor, ulcer sole of the right great toe, multiple areas of dark skin discoloration on the sole of the toes of the left foot. Neuro: No focal motor deficit. Normal speech. Psychiatry: Dysphoric.. Diabetic foot ulcer Monitor closely on telemetry Wound care Continue current IV antibiotics Analgesics as needed. Podiatry consulted. Osteomyelitis Foot x-ray suggesting acute osteomyelitis Started on IV antibiotics Analgesics as needed Follow-up blood Cultures Deep tissue wound culture pending podiatry consult Diabetes mellitus with hyperglycemia Insulin Sliding scale Continue current dose basal insulin and titrate Hypertension Continue Home medications Titrate as needed Morbid obesity Weight loss by diet and exercise advised. Discharge Plan: Home
[2024-02-04] MEDS: AMLODIPINE 10 MG TAB PO SCH (20:53)
[2024-02-05 07:05] LABS: Anion Gap 4.9 mEq/L (5.0-15.0); Magnesium 1.6 mg/dL (1.6-2.4); Potassium 3.9 mEq/L (3.5-5.1)
--- NOTE | 2024-02-05 13:37 | P.PN ---
Subjective Date of Service: 02/05/24 Chief Complaint: Pain Right Foot Patient stated his foot pain is better. No recorded fever. Physical Examination - Vital Signs Temperature: 97.7 F Blood Pressure: 115/75 Pulse: 83 Respirations: 14 Pulse Ox (%): 95 Assessment And Plan - Plan Physical examination General: Alert and oriented x3, NAD, obese Heart: Heart sounds 1 and 2 normal, regular rhythm, normal rate, no pedal edema Lungs: Clear to auscultation bilaterally, adequate breath sounds bilaterally, no rhonchi or crackles. Abdomen: Soft, nondistended, nontender, normal bowel sounds. Extremities: No tenderness, no deformity Skin: Normal skin turgor, ulcer sole of the right great toe, multiple areas of dark skin discoloration on the sole of the toes of the left foot. Neuro: No focal motor deficit. Normal speech. Plan: Diabetic foot ulcer Monitor closely on telemetry Wound care Continue current IV antibiotics Analgesics as needed. General surgery consulted. Osteomyelitis Foot x-ray suggesting acute osteomyelitis Started on IV antibiotics Analgesics as needed Blood cultures have yielded no growth. Deep tissue wound culture pending surgery consult Diabetes mellitus with hyperglycemia Aggressive blood sugar control with insulin sliding scale and basal insulin Titrate basal insulin to blood glucose target of less than 200. Hypertension Continue Home medications Titrate as needed Morbid obesity Weight loss by diet and exercise advised. Discharge Plan: Home
[2024-02-05] MEDS: INSULIN GLARGINE 100 UNIT/ML SQ SCH (14:19)
--- NOTE | 2024-02-05 15:26 | P.CNS ---
Date of Consult: 02/05/24 PC: I was asked to see this 43-year-old male in regards to possible osteomyelitis of his right foot second toe, base of the first metatarsal left foot HPC: Patient has had problems with his left foot for the last few months. Has been treating at home with Santyl and some [id number] antibiotics. Patient came in because of pain and discomfort in his second toe. PSHx: Has had previous episodes at the wound center. PMHx: Diabetic Social Hx: Allergic to vancomycin Sys R: Says he is in relatively good shape, does not have his own position. O/E: Awake alert vitals are stable HEENT: Negative Chest: Chest movement equal bilaterally Abd: Intact [place]: The second toe on the right foot shows blistering of the skin of the distal portion of the phalanx. There is also little bit black and blue underneath this part. Also painful to the touch. The base of the metatarsal head on the left foot, shows acute on chronic g ranulation tissue. There is also callus surrounding this. The patient has had previous pressure ulcer in this side. 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 He has not been taking good care of his feet. He has some injuries consistent with malformed foot wear, and lack of taking care of himself, needs to be plugged into a medical system for control of his diabetes as well. Plan: Continue with antibiotics, will follow with you and see if this toe demarcates. Will most likely be followed by me in the wound care center.
[2024-02-06 04:44] LABS: Anion Gap 6.2 mEq/L (5.0-15.0); Magnesium 1.6 mg/dL (1.6-2.4); Potassium 4.2 mEq/L (3.5-5.1)
[2024-02-06] MEDS: MAGNESIUM SULFATE 1 gm IVPB 1 GM/100 ML BAG IV ONE (05:53)
[2024-02-06] MEDS ORDERED: INSULIN DEGLUDEC 50 UNIT SQ SCH (09:00)
--- NOTE | 2024-02-06 10:51 | P.PN ---
Subjective Date of Service: 02/06/24 Chief Complaint: Pain Right Foot Patient has no new complaints, states his foot pain is better. No recorded fever. Physical Examination - Vital Signs Temperature: 97.4 F Blood Pressure: 130/70 Pulse: 67 Respirations: 16 Pulse Ox (%): 95 Assessment And Plan - Plan Physical examination General: Alert and oriented x3, NAD. Heart: Heart sounds 1 and 2 normal, regular rhythm, normal rate, no pedal edema Lungs: Clear to auscultation bilaterally, adequate breath sounds bilaterally, no rhonchi or crackles. Abdomen: Soft, nondistended, nontender, normal bowel sounds. Extremities: No tenderness, no deformity Skin: Normal skin turgor, ulcer sole of the left great toe, multiple areas of dark skin discoloration on the sole of the toes of the right foot. Right second toe appears swollen and erythematous. Neuro: No focal motor deficit. Normal speech. Plan: Diabetic foot ulcer Monitor closely on telemetry Wound care Continue current IV antibiotics Analgesics as needed. Dr. Cardozo input appreciated. He recommended to continue medical treatment with IV antibiotics. Dr. Cardozo to follow Osteomyelitis Foot x-ray suggesting acute osteomyelitis Started on IV antibiotics Analgesics as needed Blood cultures have yielded no growth. Local wound care recommended Will obtain MRI of the foot. Diabetes mellitus with hyperglycemia Aggressive blood sugar control with insulin sliding scale and basal insulin Titrate basal insulin to blood glucose target of less than 200. Hypertension Continue Home medications Titrate as needed Morbid obesity Weight loss by diet and exercise advised. Discharge Plan: Home
--- NOTE | 2024-02-06 13:40 | RAD REPORT ---
EXAM DESCRIPTION: MRI - Foot Right Wo Cont - 02/06/2024 1:17 pm CLINICAL HISTORY: Right second toe osteomyelitis Pain and swelling COMPARISON: Foot Right Wo Cont dated 09/04/2021; Foot Right 3 View dated 02/03/2024Foot Right Wo Cont dated 09/04/2021; Foot Right 3 View dated 02/03/2024; Extremity Venous Uni Ltd dated 02/03/2024 FINDINGS: There is diminished T1 signal and elevated T2 signal seen involving the middle and distal phalanx of the third toe. This is compatible with moderate osteomyelitis. The adjacent soft tissues a re thickened and edematous. Focal soft tissue ulceration is seen the distal aspect of the third toe. Elsewhere, no additional osteomyelitis is seen. No fracture or dislocation. IMPRESSION: Moderate severity osteomyelitis of the distal third toe is noted.
--- NOTE | 2024-02-06 14:31 | P.PN ---
Date of Service: 02/06/24 S: Patient has no specific complaints. Thinks he noticed that some swelling came down in his right foot. Vital signs are stable. O: Wound is slightly less swollen, third toe however still is swollen and red and erythematous. A: MRI confirms osteo of the third toe distal portion P: I discussed treatment options with the patient. That third toe appears to have gangrene in the distal portion, it is not going to be salvageable with IV antibiotics. I recommend to him he have it amputated at this time. We may be able to do a primary closure. Depending on what we find at the actual time of the operation we will determine more whether we can just do an amputation of the phalanx or if the actual metatarsal head has to be removed as well. The risks of this procedure were discussed with the patient. The possibility of bleeding, infection, further operations necessitating more amputate the tissues debridements were explained. He says his mom went through a similar episode. He understands and wants to proceed. Will make him n.p.o. at midnight.
[2024-02-07] MEDS: INSULIN GLARGINE 100 UNIT/ML SQ SCH (09:00)
[2024-02-07] MEDS: NA CHLORIDE 0.9% 100 ML ONE (09:58)
[2024-02-07] MEDS: NA CHLORIDE 0.9% 1,000 ML ONE (10:00)
[2024-02-07 10:02] LABS: Anion Gap 6.7 mEq/L (5.0-15.0); Magnesium 1.7 mg/dL (1.6-2.4); Potassium 3.7 mEq/L (3.5-5.1)
[2024-02-07] MEDS ORDERED: propofoL 200 MG/20 ML VIAL IV ONE (10:11)
[2024-02-07] MEDS ORDERED: MIDAZOLAM HCL 2 MG/2 ML INJ ONE (10:11)
[2024-02-07] MEDS ORDERED: FENTANYL CITR 100 MCG/2 ML ONE (10:11)
[2024-02-07] MEDS ORDERED: LIDOCAINE 2% MPF 5 ML VIAL ONE (10:11)
[2024-02-07] MEDS ORDERED: ONDANSETRON 4 MG/2 ML VIAL ONE (11:03)
[2024-02-07] MEDS ORDERED: NS 0.9% VIAL 10 ML ONE (11:07)
[2024-02-07] MEDS ORDERED: Phenylephrine HCl 10 MG/ML 1 ML VIAL ONE (11:07)
[2024-02-07] MEDS: HYDROMORPHONE HCL 1 MG/ML INJ ONE ×2 (11:40→11:55)
[2024-02-07] MEDS: FENTANYL CITR 100 MCG/2 ML ONE (12:17)
--- NOTE | 2024-02-07 12:54 | CON ---
History Of Present Illness: Please note, [employer] is down. I was unable to access [employer] and most of the clinical information I obtained was from Dr. Raymundo and the patient. Essentially, the patien duarte is a 43-year-old gentleman, who was admitted with cellulitis and a nonhealing wound on his right th ird toe as well as his left plantar foot. Workup was done. He was found to have marked severe osteo myelitis of the right third toe with significant bony issues seen on the plain x-ray. Also has some vascular issues. Again, I do not know the details of that because [employer] is down right now. Dr. Nancy kramer saw the patient, who recommended amputation of the right third toe and the patient just wanted a second opinion regarding that recommendation. He is awake and alert and states that he has diabet es which is poorly controlled. 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 He came to the emergency room, was admitted, and is being t reated with IV antibiotics. Review of Systems: Otherwise unremarkable. Physical Examination: Physical exam limited to the lower extremity reveals diminished dorsalis pedis and posterior tibial p ulses of the right third toe, is red, edematous with a wound on the plantar aspect, very poor appeari ng as far as compared to the toe next to this particular toe, has redness going extended towards the forefoot as well. He has a nonhealing wound on the left plantar aspect of the foot which has a necro tic eschar on the plantar surface below the first toe and it may have some purulence underneath it an d needs to be debrided as well. Assessment: A 43-year-old gentleman with advanced complicated diabetes, peripheral vascular disease, and severe osteomyelitis of right third toe and a nonhealing wound of the left foot. Recommendations: I agreed with Dr. Cardozo that the patient's right third toe should be amputated an d the left foot should be debrided. Continue with IV antibiotics at this time, and the patient was e xplained the details of his disease process and he agrees to the amputation as well as debridement. /MODL Voice ID: [id number] Report ID: [id number]
--- NOTE | 2024-02-07 19:17 | P.OP ---
Preoperative diagnosis: Osteomyelitis and gangrene of the third toe right foot, ulcer left foot Postoperative diagnosis: The same Primary procedure: Amputation of the third toe right foot Secondary procedure: Debridement of ulcer of the right foot Anesthesia: General Estimated blood loss: Less than 10 cc Specimen: Necrotic debris and bone not sent Operative Technique: Patient brought the operating room and placed supine on the table. After the induction of adequate general endotracheal anesthesia, the area of the right and left feet were prepped with a Betadine solution, draped in the usual aseptic manner. Attention was turned towards the right foot first. Under the bright lights and under careful expression we were able to see that the third toe was swollen with some dusky skin overlying the toe all the way down to the tip. A exploratory incision was made down the dorsal surface of the third toe. The distal portion showed juan j pus coming from the area with bone. The bone cutter was used to transect the shaft of the distal phalanx on the proximal segment. This left this was just a skin coverings. The posterior portion showed duskiness and does not appear to be fully viable. We were able to trim this back until we obtained a portion that looks like it had better blood supply. We tried a little bit more of the phalanx back towards the joint. This allowed us to cover the area with skin. This was done using interrupted sutures after the bone ends had been sufficiently trimmed, filed, and the bird. Prolene was used to approximate the skin edges. At this point the wound was inspected to ensure adequate hemostasis. A sterile dressing was applied. Attention was now turned towards the ulcer over the plantar surface of the left foot. It is just over the head of the metatarsal. This shows chronic callus buildup. There is however viable tissue in this area. At the end of the procedure dressings were applied, he was stable and sent to the recovery room. Needle sponge instrument count were correct. Transferred to: Recovery Room Condition: Good
--- NOTE | 2024-02-07 19:17 | P.PN ---
Subjective Date of Service: 02/07/24 Chief Complaint: Pain Right Foot Patient reports intermittent pain in his right foot. No recorded fever. Physical Examination - Vital Signs Temperature: 97.4 F Blood Pressure: 116/64 Pulse: 69 Respirations: 15 Pulse Ox (%): 95 Assessment And Plan - Plan Physical examination General: Alert and oriented x3, NAD. Heart: Heart sounds 1 and 2 normal, regular rhythm, normal rate, no pedal edema Lungs: Clear to auscultation bilaterally, adequate breath sounds bilaterally, no rhonchi or crackles. Abdomen: Soft, nondistended, nontender, normal bowel sounds. Extremities: No tenderness, no deformity Skin: Normal skin turgor, ulcer sole of the left great toe, multiple areas of dark skin discoloration on the sole of the toes of the right foot. Right third toe swollen and erythematous. Plan: Diabetic foot ulcer/osteomyelitis of distal right third toe Foot x-ray suggesting acute osteomyelitis Started on IV antibiotics Analgesics as needed Blood cultures have yielded no growth. MRI of the foot result reviewed and report moderately severe osteomyelitis of the distal third Continue current IV antibiotics Analgesics as needed. Dr. Cardozo is following and recommend amputation of the toe. Patient wanted a second opinion from another surgeon. Dr. Johns evaluated patient and agrees with amputation. Patient is scheduled for surgery today Diabetes mellitus with hyperglycemia Aggressive blood sugar control with insulin sliding scale and basal insulin Titrate basal insulin to blood glucose target of less than 200. Blood sugar readings have improved with the current dose of Semglee. Hypertension Continue Home medications Titrate as needed Morbid obesity Weight loss by diet and exercise advised. Discharge Plan: Home
--- NOTE | 2024-02-08 12:25 | P.PN ---
Subjective Date of Service: 02/08/24 Chief Complaint: Pain Right Foot Status post right third toe amputation yesterday. Patient reports intermittent pain in his right foot. No recorded fever. Physical Examination - Vital Signs Temperature: 98.1 F Blood Pressure: 130/60 Pulse: 75 Respirations: 17 Pulse Ox (%): 95 Assessment And Plan - Plan Physical examination General: Alert and oriented x3, NAD. Heart: Heart sounds 1 and 2 normal, regular rhythm, normal rate, no pedal edema Lungs: Clear to auscultation bilaterally, adequate breath sounds bilaterally, no rhonchi or crackles. Abdomen: Soft, nondistended, nontender, normal bowel sounds. Extremities: No tenderness, no deformity Skin: Right third toe amputation wound with clean dressing, left great toe wound with clean dressing. Plan: Diabetic foot ulcer/osteomyelitis of distal right third toe Foot x-ray suggested acute osteomyelitis,, confirmed by MRI of the foot. Status post right third toe amputation. Analgesics as needed Blood cultures have yielded no growth. Continue current IV antibiotics Analgesics as needed. Dr. Cardozo is following. Diabetes mellitus with hyperglycemia Aggressive blood sugar control with insulin sliding scale and basal insulin Titrate Semglee insulin to blood glucose target of less than 200. Hypertension Continue Home medications Titrate as needed Morbid obesity Weight loss by diet and exercise advised. Discharge Plan: Home DVT prophylaxis: Lovenox
[2024-02-08] MEDS: INSULIN REGULAR (HUMAN) 100 UNIT/ML ONE ×3 (16:22→20:31)
[2024-02-09 07:18] LABS: Absolute Eosinophils 0.1 K/uL (0-0.5); Absolute Lymphocytes (CBC) 2.4 K/uL (0.7-4.9); Absolute Monocytes 0.7 K/uL (0.1-1.3); Basophils % 0.6 % (0-1.3); Eosinophils % 2.3 % (0-4.4); Hematocrit 38.8 % (39.6-49.0); Hemoglobin 13.2 g/dL (13.6-17.9); Lymphocytes % 37.6 % (15.3-44.8); MCH 30.2 pg (27.0-35.0); MCV 88.9 fL (80-100); MPV 8.5 fL (7.6-11.3); Monocytes % 11.2 % (3.3-12.3); Neutrophils % 48.3 % (41.7-73.7); Nucleated Red Blood Cells % 0.3 % (0-0); Platelets 243 thou/uL (152-406); RBC Red Blood Cell Count 4.36 M/uL (4.33-5.43); Red Cell Distribution Width 13.4 % (12.1-15.2)
[2024-02-09] MEDS: INSULIN REGULAR (HUMAN) 100 UNIT/ML ONE ×2 (08:21→12:33)
[2024-02-09 08:37] VITALS: TEMP 97.1
[2024-02-09 09:58] VITALS: O2SAT 98
--- NOTE | 2024-02-09 12:06 | P.DS ---
Admission Date: 02/03/24 Discharge Date: 02/09/24 Disposition: ROUTINE DISCHARGE Reason for Admission: Pain Right Foot Brief History of Present Illness: 43 yo Male with past medical history of IDDM , Hypercholesterolemia , DVT ; Hypertension; Diabetic neuropathy who came to ER with pain, redness and swelling in the right lower extremity and right foot. Patient was assessed in the ER and had a CT which was suggestive of osteomyelitis of the right third toe and cellulitis of the right lower extremity. He was admitted for further management. Hospital Course: Patient was admitted to the medical floor and following medical problems addressed: Diagnosis Diabetic foot ulcer Osteomyelitis of distal right third toe Diabetes mellitus with hyperglycemia Essential hypertension Diabetic foot ulcer/osteomyelitis of distal right third toe Foot x-ray suggested acute osteomyelitis,, confirmed by MRI of the foot. Patient seen and evaluated by surgery Dr. Cardozo. Status post right third toe amputation and debridement of left great toe diabetic wound debridement. Blood cultures have yielded no growth. Patient was treated with IV antibiotics. Case discussed with surgery Dr. Cardozo who recommended oral antibiotics for now since the infected bone has been removed. Patient discharged with oral Augmentin and doxycycline. Follow-up with Dr. Cardozo next week in the wound care clinic Diabetes mellitus with hyperglycemia Noncompliance with diabetic treatment suspected Blood sugar was managed with insulin sliding scale and Semglee. Semglee was titrated to 55 units daily and blood sugar was in the low 200s. Patient discharged with Tresiba 60 units daily for target blood sugar of less than 200.. Hypertension Continued Home medications. Morbid obesity Weight loss by diet and exercise advised. Vital Signs/Physical Exam: Temp Pulse Resp BP Pulse Ox 97.1 F 69 14 114/74 97 02/09/24 08:00 02/09/24 08:29 02/09/24 10:55 02/09/24 08:29 02/09/24 10:55 General: Alert, In no apparent distress, Oriented x3 Neck: Supple, JVD not distended Respiratory: Clear to auscultation bilaterally, Normal air movement Cardiovascular: No edema, Regular rate/rhythm, Normal S1 S2 Gastrointestinal: Normal bowel sounds, Soft and benign, Non-distended, No tenderness Musculoskeletal: No swelling Integumentary: No cyanosis, Other (Right great toe amputation wound clean with sutures in place, left great toe wound looks clean.) Neurological: Normal strength at 5/5 x4 extr Laboratory Data at Discharge: WBC 6.30 thou/uL (4.3-10.9) 02/09/24 06:10 Hgb 13.2 g/dL (13.6-17.9) L 02/09/24 06:10 Hct 38.8 % (39.6-49.0) L 02/09/24 06:10 Plt Count 243 thou/uL (152-406) 02/09/24 06:10 PT 11.6 SECONDS (9.5-12.5) 02/03/24 15:48 INR 1.06 02/03/24 15:48 APTT 33.8 SECONDS (24.3-36.9) 02/03/24 15:48 Sodium 134 mEq/L (136-145) L 02/09/24 06:10 Potassium 4.0 mEq/L (3.5-5.1) 02/09/24 06:10 BUN 12 mg/dL (7-18) 02/09/24 06:10 Creatinine 0.64 mg/dL (0.70-1.30) L 02/09/24 06:10 Glucose 156 mg/dL (74-106) H 02/09/24 06:10 Magnesium 1.7 mg/dL (1.6-2.4) 02/07/24 07:24 Total Bilirubin 0.4 mg/dL (0.2-1.0) 02/04/24 03:24 AST < 4 U/L (15-37) L 02/04/24 03:24 ALT 21 U/L (16-61) 02/04/24 03:24 Alkaline Phosphatase 78 U/L (45-117) D 02/04/24 03:24 Home Medications: Alcohol Antiseptic Pads [Alcohol Swabs] 1 each TP TID #100 ea 02/09/24 Amlodipine [Norvasc*] 10 mg PO DAILY #30 tab 02/09/24 Amox/Clavulanate [Augmentin 875-125 Tab] 1 each PO BID #14 tab 02/09/24 Blood Sugar Diagnostic [Blood Glucose Test Strip] 1 each MC TID #30 strip 02/09/24 Blood-Glucose Meter [Blood Glucose Monitoring] 1 each MC TID #1 kit 02/09/24 Doxycycline Hyclate [Vibramycin] 100 mg PO BID #14 cap 02/09/24 Gabapentin 600 mg PO BID #60 tab 02/09/24 Hydrocodone 10/APAP 325 [[place] 10/325*] 1 tab PO Q4H PRN #20 tab 02/09/24 Insulin Degludec [Tresiba Flextouch U-100] 60 unit SQ DAILY #20 ml 02/09/24 Lancets [Comfort Touch Ult Thin Lancet] 1 each MC TID #100 ea 02/09/24 Pen Needle, Diabetic [Insulin Pen Needle] 1 dis.ndl MC TID #100 dis.ndl 02/09/24 allopurinoL [Zyloprim*] 300 mg PO BEDTIME #30 tab 02/09/24 New Medications: Alcohol Antiseptic Pads [Alcohol Swabs] 1 each TP TID #100 ea Amox/Clavulanate [Augmentin 875-125 Tab] 1 each PO BID #14 tab Blood-Glucose Meter [Blood Glucose Monitoring] 1 each MC TID #1 kit Blood Sugar Diagnostic [Blood Glucose Test Strip] 1 each MC TID #30 strip Lancets [Comfort Touch Ult Thin Lancet] 1 each MC TID #100 ea Gabapentin 600 mg PO BID #60 tab Pen Needle, Diabetic [Insulin Pen Needle] 1 dis.ndl MC TID #100 dis.ndl Hydrocodone 10/APAP 325 [[place] 10/325*] 1 tab PO Q4H PRN #20 tab PRN Reason: Pain Scale 5-7 (Moderate) Amlodipine [Norvasc*] 10 mg PO DAILY #30 tab Insulin Degludec [Tresiba Flextouch U-100] 60 unit SQ DAILY #20 ml Doxycycline Hyclate [Vibramycin] 100 mg PO BID #14 cap allopurinoL [Zyloprim*] 300 mg PO BEDTIME #30 tab Physician Discharge Instructions: Change dressing daily. Diet: ADA Activity: Ad cesar Followup: Donnie Cardozo MD [ACTIVE - CAN ADMIT] - (Next week Saturday02/12/2024 at the wound care clinic.) SABRA SHETTY [Primary Care Provider] - 1-2 Weeks Time spent managing pt's care (in minutes): 38
[2024-02-09 13:10] VITALS: BP 131/73
== END 2024-02-09 14:45 | disposition home or self-care (01) | DRG 256 ==
LOC: ER 14:48 → ERHOLD 17:40 → 2ND 18:10
PROVIDERS: ADMIT Family Medicine; ATTEND Internal Medicine
PROC: 0JBR3ZZ Excision of Left Foot Subcutaneous Tissue and Fascia, Percutaneous Approach (ICD-10-PCS; 2024-02-07)
PROC: 0Y6T0Z3 Detachment at Right 3rd Toe, Low, Open Approach (ICD-10-PCS; principal; 2024-02-07 10:00)
DX: E11.52 Type 2 diabetes mellitus with diabetic peripheral angiopathy with gangrene (principal); L03.115 Cellulitis of right lower limb; M86.171 Other acute osteomyelitis, right ankle and foot; L97.526 Non-pressure chronic ulcer of other part of left foot with bone involvement without evidence of necrosis; E11.69 Type 2 diabetes mellitus with other specified complication; E11.621 Type 2 diabetes mellitus with foot ulcer; E11.40 Type 2 diabetes mellitus with diabetic neuropathy, unspecified; E11.65 Type 2 diabetes mellitus with hyperglycemia; L03.031 Cellulitis of right toe; I10 Essential (primary) hypertension; E78.00 Pure hypercholesterolemia, unspecified; E66.01 Morbid (severe) obesity due to excess calories; Z79.4 Long term (current) use of insulin; Z88.1 Allergy status to other antibiotic agents; Z68.39 Body mass index [BMI] 39.0-39.9, adult; Z79.01 Long term (current) use of anticoagulants; Z79.84 Long term (current) use of oral hypoglycemic drugs; Z79.899 Other long term (current) drug therapy; Z86.718 Personal history of other venous thrombosis and embolism
CPT/HCPCS: 36415; 80048; 80053; 82947; 83605; 83735; 85025; 85610; 85730; 87040; 88304; 88305; 88311; 93005; 93926; 93971; 94760; 96365; 96366; 96367; 96372; 96375; 99285; A4216; J0692; J1170; J1650; J1815; J2001; J2250; J2270; J2371; J2405; J2704; J3010; J3475; J7030; J7040

== ENCOUNTER 2024-07-31 14:26 | Inpatient (IN) | payer SELFPAY ==
[2024-07-31] MEDS ORDERED: ONDANSETRON 4 MG/2 ML VIAL ONE (15:24)
[2024-07-31] MEDS ORDERED: FENTANYL CITR 100 MCG/2 ML ONE ×2 (15:25→17:52)
[2024-07-31 15:38] LABS: Absolute Eosinophils 0.1 K/uL (0-0.5); Absolute Lymphocytes (CBC) 1.9 K/uL (0.7-4.9); Absolute Monocytes 0.5 K/uL (0.1-1.3); Absolute Neutrophil 3.6 K/uL (1.8-8.0); Basophils % 0.6 % (0-1.3); Eosinophils % 1.9 % (0-4.4); Hematocrit 37.1 % (39.6-49.0); Hemoglobin 12.7 g/dL (13.6-17.9); Lymphocytes % 30.7 % (15.3-44.8); MCH 30.2 pg (27.0-35.0); MCHC 34.1 g/dL (32.0-36.0); MCV 88.6 fL (80-100); MPV 9.2 fL (7.6-11.3); Monocytes % 7.6 % (3.3-12.3); Neutrophils % 59.2 % (41.7-73.7); Platelets 187 thou/uL (152-406); RBC Red Blood Cell Count 4.19 M/uL (4.33-5.43); Red Cell Distribution Width 13.5 % (12.1-15.2)
[2024-07-31 15:51] LABS: Specific Gravity > 1.030 (1.005-1.030); Sqamous Epithelial <5 /HPF (None Seen); Urine Bacteria None Seen /HPF (<20); Urine Bilirubin NEGATIVE (Negative); Urine Blood Negative (Negative); Urine Clarity Clear (Clear); Urine Color Colorless (Yellow); Urine Crystals Unidentified Few /HPF (None Seen); Urine Culture Reflex Order REFLEXED; Urine Glucose 4+ (Over) (Negative); Urine Ketones NEGATIVE (Negative); Urine Microscopic Reflex YN ORDER UMIC; Urine Nitrite NEGATIVE (Negative); Urine Protein NEGATIVE (Negative); Urine Urobilinogen Normal (Normal); Urine WBC Clump Rare /HPF (None Seen); Urine Yeast (Budding) Trace /HPF (None Seen)
[2024-07-31 15:54] LABS: PT Prothrombin Time 11.7 SECONDS (9.4-12.5); PTT, Activated Partial Thromb 32.2 SECONDS (24.3-36.9); Protime INR 1.05
[2024-07-31 15:59] LABS: Albumin 3.1 g/dL (3.4-5.0); Albumin/Globulin Ratio 0.6 (1.1-1.8); Anion Gap 12.2 mEq/L (5.0-15.0); Bilirubin Total 0.4 mg/dL (0.2-1.0); Potassium 4.2 mEq/L (3.5-5.1); Protein, Total 8.1 g/dL (6.4-8.2)
[2024-07-31] MEDS ORDERED: NA CHLORIDE 0.9% 1,000 ML ONE ×2 (16:25→17:53)
[2024-07-31] MEDS ORDERED: INSULIN REGULAR (HUMAN) 100 UNIT/ML ONE ×2 (16:25→17:52)
--- NOTE | 2024-07-31 16:32 | RAD REPORT ---
EXAM:Extremity Venous Uni Ltd HISTORY: Leg pain TECHNIQUE: Sonographic evaluation right lower extremity performed.Grayscale, color and spectral rita sis performed on all vessels COMPARISON: January 2024 FINDINGS: Right common femoral, superficial femoral, greater saphenous, popliteal and posterior tibial veins ar e compressible and demonstrate augmentation. Doppler demonstrates good flow. IMPRESSION: No evidence of deep venous thrombosis involving the right lower extremity.
--- NOTE | 2024-07-31 16:34 | RAD REPORT ---
EXAM:Lower Extremity Artery Uni Ltd HISTORY: Right leg pain TECHNIQUE: Sonographic evaluation right lower extremity arteries performed.Grayscale, color and spect ral analysis performed on all vessels COMPARISON: None. FINDINGS: The right common femoral, superficial femoral, popliteal posterior tibial and dorsalis pedis arterial waveforms triphasic No high-grade stenosis/occlusion IMPRESSION: No significant vascular abnormality displayed
--- NOTE | 2024-07-31 17:05 | RAD REPORT ---
EXAMINATION: Tib Fib Right CLINICAL INDICATION: Leg pain FINDINGS: Soft tissue swelling Old fractures proximal tibia and fibula. Periosteal deposition is present about the medial fibular fracture site. No gross bony destructive lesion seen. If the patient has clinical symptoms to suggest osteomyelitis then MRI would be recommended
--- NOTE | 2024-07-31 17:05 | RAD REPORT ---
EXAM:Extremity Nonvascular Limited CLINICAL HISTORY: Pain TECHNIQUE: Sonographic evaluation of the right lower leg performed. FINDINGS: 3.5 x 2.7 cm heterogeneous fluid collection is present within the medial aspect of the right lower ex tremity. It contains increased vascularity. IMPRESSION: 3.5 cm heterogeneous fluid collection within the medial aspect of the right lower extremity probably an abscess
[2024-07-31] MEDS ORDERED: Levofloxacin 750mg IV 750 MG/150 ML BAG IV ONE (17:24)
[2024-07-31] MEDS ORDERED: CLINDAMYCIN 900MG/D5W 900 MG/50 ML IVPB IV ONE (17:24)
--- NOTE | 2024-07-31 17:31 | ER ---
Nurse's Notes [facility] Name: Addy Quintana Jr Age: 43 yrs Sex: Male : 1980 Arrival Date: 07/31/2024 Time: 14:26 Bed 13 Private MD: Diagnosis: Cellulitis of right lower limb;Foot Laceration/ Open wound of foot-left;Diabetes mellitus due to underlying condition with hyperglycemia Presentation: 07/31 14:43 Chief complaint: Patient states: ARAVIND leg swelling and redness x4 days with increased kc6 right leg pain / that started yesterday. Coronavirus screen: At this time, the client does not indicate any symptoms associated with coronavirus-19. Ebola Screen: No symptoms or risks identified at this time. Initial Sepsis Screen: Does the patient meet any 2 criteria? HR > 90 bpm. Does the patient have a suspected source of infection? No. Patient's initial sepsis screen is negative. Risk Assessment: Do you want to hurt yourself or someone else? Patient reports no desire to harm self or others. Onset of symptoms was July 27, 2024. 14:43 Method Of Arrival: Ambulatory kc6 14:43 Acuity: FLORENCIO 3 kc6 Historical: - Allergies: 14:44 VANCOMYCIN AND DERIVATIVES; kc6 - PMHx: 14:44 Diabetes - IDDM; DVT; Hypercholesterolemia; Hypertension; neuropathy; kc6 - PSHx: 14:44 Aravind knee sx; RIGHT MIDDLE TOE AMPUTATION (ee); kc6 - Immunization history:: Adult Immunizations up to date. - Infectious Disease History:: Denies. - Social history:: Smoking status: Patient reports the use of cigarette tobacco products, denies chronic smoking, but will smoke occasionally, Reported history of juuling and/or vaping. Screenin:47 [facility] ED Fall Risk Assessment (Adult) History of falling in the last 3 months, tm6 including since admission No falls in past 3 months (0 pts) Confusion or Disorientation No (0 pts) Intoxicated or Sedated No (0 pts) Impaired Gait No (0 pts) Mobility Assist Device Used No (0 pt) Altered Elimination No (0 pt) Score/Fall Risk Level 0 - 2 = Low Risk Oriented to surroundings, Maintained a safe environment, Educated pt \T\ family on fall prevention, incl call for assistance when getting out of bed. Abuse screen: Denies threats or abuse. Denies injuries from another. Nutritional screening: No deficits noted. Tuberculosis screening: No symptoms or risk factors identified. Assessment: 14:47 General: Appears in no apparent distress. Behavior is calm, cooperative. Pain: tm6 Complains of pain in right leg and left leg Pain currently is 9 out of 10 on a pain scale. Pain began 1 day ago. Neuro: Level of Consciousness is awake, alert, obeys commands, Oriented to person, place, time, situation. Cardiovascular: Patient's skin is warm and dry. Respiratory: Airway is patent Respiratory effort is even, unlabored, Respiratory pattern is regular, symmetrical. GI: No signs and/or symptoms were reported involving the gastrointestinal system. Abdomen is round. : No signs and/or symptoms were reported regarding the genitourinary system. EENT: No signs and/or symptoms were reported regarding the EENT system. Derm: Wound noted left foot, right leg and left leg Wound is red, raised skin on both legs. Left foot has wound to bottom of foot. Musculoskeletal: No signs and/or symptoms reported regarding the musculoskeletal system. 16:05 Reassessment: Patient and/or family updated on plan of care and expected duration. Pain tm6 level reassessed. Patient is alert, oriented x 3, equal unlabored respirations, skin warm/dry/pink. 17:10 Reassessment: Patient and/or family updated on plan of care and expected duration. Pain tm6 level reassessed. Patient is alert, oriented x 3, equal unlabored respirations, skin warm/dry/pink. 18:32 Reassessment: report sent to [facility], confirmed by Perez. 6 Vital Signs: 14:43 BP 138 / 90; Pulse 105; Resp 19 S; Temp 97.8(O); Pulse Ox 96% on R/A; Weight 136.98 kg kc6 (R); Height 5 ft. 7 in. (R); Pain 9/10; 16:04 BP 127 / 69; Pulse 95; Pulse Ox 95% on R/A; MAP 86 mmHg; Pain 10/10; tm6 16:09 BP 106 / 78; Pulse 94; Pulse Ox 93% on R/A; MAP 87 mmHg; Pain 2/10; tm6 16:38 BP 99 / 55; Pulse 96; Pulse Ox 99% on R/A; MAP 70 mmHg; Pain 0/10; tm6 17:09 BP 101 / 55; Pulse 84; Pulse Ox 95% on R/A; MAP 68 mmHg; tm6 18:23 BP 112 / 56; Pulse 98; Pulse Ox 98% on R/A; MAP 72 mmHg; Pain 0/10; tm6 14:43 Body Mass Index 47.30 (136.98 kg, 170.18 cm) kc6 14:43 Pain Scale: Adult kc6 16:04 Pain Scale: Adult tm6 16:09 Pain Scale: Adult tm6 16:38 Pain Scale: Adult tm6 18:23 Pain Scale: Adult tm6 ED Course: 14:30 Patient arrived in ED. ra3 14:33 Paul Larson, GÓMEZ is Primary Nurse. tm6 14:34 Perez Foss PA is PHCP. cp 14:34 Perez Singer MD is Attending Physician. cp 14:44 Triage completed. kc6 14:44 Arm band placed on. kc6 14:47 Patient has correct armband on for positive identification. Bed in low position. Call tm6 light in reach. Side rails up X 1. Provided Education on: use of call beverly. Client placed on continuous cardiac and pulse oximetry monitoring. NIBP monitoring applied. Pulse ox on. NIBP on. Door closed. Noise minimized. 16:02 US Extremity Venous Unilateral Ltd In Process Unspecified. EDMS 16:02 US Lower Extremity Artery Uni Ltd In Process Unspecified. EDMS 16:05 US Extrmty Nonvasular Limited In Process Unspecified. EDMS 16:13 Inserted saline lock: 20 gauge in right antecubital area, using aseptic technique. nh2 Blood collected. Flushed with 10 mL NS. 16:19 XRAY Tib Fib RIGHT In Process Unspecified. EDMS 17:30 Everardo Ram MD is Hospitalizing Provider. cp 19:15 No provider procedures requiring assistance completed. Patient admitted, IV remains in bm8 place. Administered Medications: 16:01 Drug: fentaNYL (PF) IVP 25 mcg IVP once Route: IVP; Site: right antecubital; tm6 16:22 Follow up: Response: No adverse reaction; Pain is decreased tm6 16:01 Drug: Ondansetron IVP 4 mg IVP once; over 2 minutes Route: IVP; Site: right antecubital;tm6 16:22 Follow up: Response: No adverse reaction tm6 16:30 Drug: NS 0.9% IV 1000 ml IV at 1 bolus Per protocol; to be given as a bolus over 60 tm6 minutes Route: IV; Rate: 1 bolus; Site: right antecubital; 17:41 Follow up: Response: No adverse reaction; IV Status: Completed infusion; IV Intake: tm6 1000ml 18:09 Follow up: Response: No adverse reaction; IV Status: Completed infusion; IV Intake: tm6 1000ml 16:31 Drug: Insulin Regular Human IVP 10 units IVP once {Co-Signature: bp (Adolfo Mathis tm6 RN).} Route: IVP; Site: right antecubital; 18:09 Follow up: Response: No adverse reaction tm6 17:21 CANCELLED (Physician Discretion): piperacillin-tazobactam4.5 grams IVPB once over 60 cp mins; (mix in 100 mL NS) 17:32 Drug: Clindamycin IVPB 900 mg IVPB once over 30 mins; (mix in 50 mL) Route: IVPB; tm6 Infused Over: 30 mins; Site: right antecubital; 18:09 Follow up: Response: No adverse reaction; IV Status: Completed infusion; IV Intake: [id number] 18:09 Drug: levofloxacin IVPB 750 mg 150 ml IVPB once over 90 mins Volume: 150 ml; Route: tm6 IVPB; Infused Over: 90 mins; Site: right antecubital; 19:16 Follow up: Response: No adverse reaction; IV Status: Completed infusion; IV Intake: bm8 150ml 18:09 Drug: fentaNYL (PF) IVP 50 mcg IVP once Route: IVP; Site: right antecubital; tm6 19:16 Follow up: Response: No adverse reaction bm8 18:10 Drug: Insulin Regular Human IVP 10 units IVP once {Co-Signature: kc6 (Zita Feng tm6 RN).} Route: IVP; Site: right antecubital; 19:16 Follow up: Response: No adverse reaction bm8 18:10 Drug: NS 0.9% IV 1000 ml IV at 1000 ml once; to be given as a bolus over 60 minutes tm6 Route: IV; Rate: 1000 ml; Site: right antecubital; 19:16 Follow up: Response: No adverse reaction; IV Status: Completed infusion; IV Intake: bm8 1000ml Medication: 14:47 VIS not applicable for this client. tm6 Intake: 17:41 IV: 1000ml; Total: 1000ml. tm6 18:09 IV: 50ml; Total: 1050ml. tm6 18:09 IV: 1000ml; Total: 2050ml. tm6 19:16 IV: 1000ml; Total: 3050ml. bm8 19:16 IV: 150ml; Total: 3200ml. bm8 Outcome: 17:30 Decision to Hospitalize by Provider. cp 19:15 Admitted to Tele accompanied by tech, via stretcher, room 405, with chart, bm8 19:15 Condition: stable 19:15 Instructed on the need for admit, Demonstrated understanding of instructions, follow-up care, 19:17 Patient left the ED. bm8 Signatures: Dispatcher [employer] EDMS Perez Foss PA PA cp Campbell, Kaitlyn, GÓMEZ RN kc6 Paul Larson RN RN 6 Marla Montiel 3 Ward Amezcua, RN RN bm8 Lucio Miller Jr, Brian RN bp Zita Feng RN kc6
--- NOTE | 2024-07-31 17:31 | EDPHYS ---
Physician Documentation [facility] Name: Addy Quintana Jr Age: 43 yrs Sex: Male : 1980 Arrival Date: 07/31/2024 Time: 14:26 Bed 13 Private MD: ED Physician Perez Singer HPI: 07/31 15:00 This 43 yrs old Male presents to ER via Ambulatory with complaints of right cp leg with redness x4days. 15:00 The patient presents with pain, that is acute, swelling, tenderness. The complaints cp affect the medial aspect of right calf and right dockery. Onset: The symptoms/episode began/occurred yesterday, and became worse today. 15:00 Associated signs and symptoms: Pertinent positives: calf tenderness, warmth, Pertinent cp negatives fever. Treatment prior to arrival includes: no previous treatment. Patient also reports chronic open wound to right foot. Historical: - Allergies: 14:44 VANCOMYCIN AND DERIVATIVES; kc6 - PMHx: 14:44 Diabetes - IDDM; DVT; Hypercholesterolemia; Hypertension; neuropathy; kc6 - PSHx: 14:44 Dion knee sx; RIGHT MIDDLE TOE AMPUTATION (ee); kc6 - Immunization history:: Adult Immunizations up to date. - Infectious Disease History:: Denies. - Social history:: Smoking status: Patient reports the use of cigarette tobacco products, denies chronic smoking, but will smoke occasionally, Reported history of juuling and/or vaping. ROS: 15:05 Constitutional: Negative for fever, poor PO intake, cp 15:05 Constitutional: HX per hpi cp 15:05 ENT: Negative for drainage from ear(s), ear pain, sore throat, difficulty swallowing, difficulty handling secretions, 15:05 Cardiovascular: Negative for chest pain, palpitations, 15:05 Respiratory: Negative for cough, shortness of breath, wheezing, 15:05 Abdomen/GI: Negative for abdominal pain, vomiting, diarrhea, constipation, 15:05 Neuro: Negative for altered mental status, dizziness, headache, weakness, 15:05 All other systems are negative, Exam: 15:07 ECG was reviewed by the Attending Physician. cp 15:10 Constitutional: The patient appears in no acute distress, alert, awake, cp non-diaphoretic, non-toxic, well developed, well nourished, obese, 15:10 Head/Face: Normocephalic, atraumatic. cp 15:10 Eyes: Periorbital structures: appear normal, Conjunctiva: normal, no exudate, no injection, Sclera: no appreciated abnormality, Lids and lashes: appear normal, bilaterally, 15:10 ENT: External ear(s): are unremarkable, Nose: is normal, Mouth: Lips: moist, Oral mucosa: moist, Posterior pharynx: Airway: no evidence of obstruction, patent, 15:10 Chest/axilla: Inspection: normal, 15:10 Cardiovascular: Rate: tachycardic, Rhythm: regular, Edema: ankle edema, that is mild, 15:10 Respiratory: the patient does not display signs of respiratory distress, Respirations: normal, no use of accessory muscles, no retractions, labored breathing, is not present, Breath sounds: are clear throughout, no decreased breath sounds, no stridor, no wheezing, 15:10 Abdomen/GI: Exam negative for discomfort, distension, guarding, Inspection: abdomen appears normal, 15:10 Musculoskeletal/extremity: Extremities: noted in the right dockery and medial aspect of right calf: erythema, pain, swelling, tenderness, noted in the left foot: open wound noted plantar side of left great toe with no drainage, minimal erythema and swelling noted, 15:10 Neuro: Orientation: to person, place \T\ time. Mentation: is normal, Motor: moves all fours, strength is normal, Vital Signs: 14:43 BP 138 / 90; Pulse 105; Resp 19 S; Temp 97.8(O); Pulse Ox 96% on R/A; Weight 136.98 kg kc6 (R); Height 5 ft. 7 in. (R); Pain 9/10; 16:04 BP 127 / 69; Pulse 95; Pulse Ox 95% on R/A; MAP 86 mmHg; Pain 10/10; tm6 16:09 BP 106 / 78; Pulse 94; Pulse Ox 93% on R/A; MAP 87 mmHg; Pain 2/10; tm6 16:38 BP 99 / 55; Pulse 96; Pulse Ox 99% on R/A; MAP 70 mmHg; Pain 0/10; tm6 17:09 BP 101 / 55; Pulse 84; Pulse Ox 95% on R/A; MAP 68 mmHg; tm6 18:23 BP 112 / 56; Pulse 98; Pulse Ox 98% on R/A; MAP 72 mmHg; Pain 0/10; tm6 14:43 Body Mass Index 47.30 (136.98 kg, 170.18 cm) kc6 14:43 Pain Scale: Adult kc6 16:04 Pain Scale: Adult tm6 16:09 Pain Scale: Adult tm6 16:38 Pain Scale: Adult tm6 18:23 Pain Scale: Adult tm6 MDM: 14:34 Medical Screening Exam initiated cp 17:35 Data reviewed: vital signs, nurses notes, lab test result(s), EKG, radiologic studies, cp ultrasound, and as a result, I will admit patient. 17:35 Management of patient was discussed with the following: Hospitalist: Fernando Rubio NP cp will admit to services of hospitalist. I considered the following discharge prescriptions or medication management in the emergency department Medications were administered in the Emergency Department. See MAR. Independent interpretation of the following test(s) in the Emergency Department EKG: See my EKG interpretation above. Care significantly affected by the following chronic conditions: Diabetes, Hypertension, Obesity. Counseling: I had a detailed discussion with the patient and/or guardian regarding the historical points, exam findings, and any diagnostic results supporting the discharge/admit diagnosis, lab results, radiology results, the need for further work-up and treatment in the hospital. 07/31 14:50 Order name: Blood Culture Adult (2) 07/31 14:50 Order name: CBC with Diff; Complete Time: 16:17 07/31 16:17 Interpretation: Normal except: RBC 4.19; HGB 12.7; HCT 37.1. 07/31 14:50 Order name: CMP; Complete Time: 16:17 07/31 16:46 Interpretation: Normal except: NA 134; GLUC 531; AST 11; ALB 3.1; GLOB 5.0; A/G 0.6. 07/31 14:50 Order name: Lactate w/ 2H reflex if indic.; Complete Time: 16:17 07/31 16:17 Interpretation: Abnormal: LAC 2.2. 07/31 14:50 Order name: Protime (+inr); Complete Time: 16:17 07/31 14:50 Order name: Ptt, Activated; Complete Time: 16:17 07/31 14:50 Order name: Urinalysis w/ reflexes; Complete Time: 16:17 cp 07/31 16:03 Order name: Urine Culture EDMS 07/31 17:41 Order name: Glucose, Ancillary Testing EDSD 07/31 17:58 Order name: Ghost Lactate-NO COLLECT Timer EDSD 07/31 18:35 Order name: Lactate Sepsis 2 HR Follow-up EDMS 07/31 14:50 Order name: XRAY Tib Fib RIGHT cp 07/31 14:50 Order name: US Extremity Venous Unilateral Ltd; Complete Time: 16:45 cp 07/31 14:50 Order name: US Lower Extremity Artery Uni Ltd; Complete Time: 16:45 cp 07/31 14:50 Order name: US Extrmty Nonvasular Limited cp 07/31 17:18 Order name: XRAY Foot LEFT 3 View cp 07/31 18:50 Order name: RAD EDSD 07/31 14:50 Order name: Accucheck; Complete Time: 16:01 cp 07/31 14:50 Order name: Cardiac monitoring; Complete Time: 15:02 07/31 14:50 Order name: EKG - Nurse/Tech; Complete Time: 15:02 cp 07/31 14:50 Order name: IV Saline Lock - Large Bore; Complete Time: 15:44 cp 07/31 14:50 Order name: Labs collected and sent; Complete Time: 15:44 cp 07/31 14:50 Order name: O2 Per Protocol; Complete Time: 15:02 cp 07/31 14:50 Order name: O2 Sat Monitoring; Complete Time: 15:02 cp 07/31 14:50 Order name: Vital Signs; Complete Time: 15:02 cp EC:07 Rate is 95 beats/min. Rhythm is regular. VA interval is normal. QRS interval is normal. cp QT interval is normal. T waves are Inverted in leads III, aVR, V3. Interpreted by me. Reviewed by me. Administered Medications: 16:01 Drug: fentaNYL (PF) IVP 25 mcg IVP once Route: IVP; Site: right antecubital; tm6 16:22 Follow up: Response: No adverse reaction; Pain is decreased tm6 16:01 Drug: Ondansetron IVP 4 mg IVP once; over 2 minutes Route: IVP; Site: right antecubital;tm6 16:22 Follow up: Response: No adverse reaction tm6 16:30 Drug: NS 0.9% IV 1000 ml IV at 1 bolus Per protocol; to be given as a bolus over 60 tm6 minutes Route: IV; Rate: 1 bolus; Site: right antecubital; 17:41 Follow up: Response: No adverse reaction; IV Status: Completed infusion; IV Intake: tm6 1000ml 18:09 Follow up: Response: No adverse reaction; IV Status: Completed infusion; IV Intake: tm6 1000ml 16:31 Drug: Insulin Regular Human IVP 10 units IVP once {Co-Signature: bp (Adolfo Mathis tm6 RN).} Route: IVP; Site: right antecubital; 18:09 Follow up: Response: No adverse reaction tm6 17:21 CANCELLED (Physician Discretion): piperacillin-tazobactam4.5 grams IVPB once over 60 cp mins; (mix in 100 mL NS) 17:32 Drug: Clindamycin IVPB 900 mg IVPB once over 30 mins; (mix in 50 mL) Route: IVPB; tm6 Infused Over: 30 mins; Site: right antecubital; 18:09 Follow up: Response: No adverse reaction; IV Status: Completed infusion; IV Intake: [id number] 18:09 Drug: levofloxacin IVPB 750 mg 150 ml IVPB once over 90 mins Volume: 150 ml; Route: tm6 IVPB; Infused Over: 90 mins; Site: right antecubital; 19:16 Follow up: Response: No adverse reaction; IV Status: Completed infusion; IV Intake: bm8 150ml 18:09 Drug: fentaNYL (PF) IVP 50 mcg IVP once Route: IVP; Site: right antecubital; tm6 19:16 Follow up: Response: No adverse reaction bm8 18:10 Drug: Insulin Regular Human IVP 10 units IVP once {Co-Signature: kc6 (Zita Feng tm6 RN).} Route: IVP; Site: right antecubital; 19:16 Follow up: Response: No adverse reaction bm8 18:10 Drug: NS 0.9% IV 1000 ml IV at 1000 ml once; to be given as a bolus over 60 minutes tm6 Route: IV; Rate: 1000 ml; Site: right antecubital; 19:16 Follow up: Response: No adverse reaction; IV Status: Completed infusion; IV Intake: bm8 1000ml Disposition Summary: 07/31/24 17:30 Hospitalization Ordered Notes: Hospitalization Status: Inpatient Admission cp Provider: Everardo Ram cp Location: Telemetry/MedSurg (Inpatient) cp Condition: Stable cp Problem: new cp Symptoms: have improved cp Bed/Room Type: Standard cp Room Assignment: 405(07/31/24 17:45) em1 Diagnosis - Cellulitis of right lower limb cp - Foot Laceration/ Open wound of foot - left cp - Diabetes mellitus due to underlying condition with hyperglycemia cp Forms: - Medication Reconciliation Form cp - SBAR form cp - Leadership Thank You Letter cp Signatures: Dispatcher [employer] EDMS Emil Wesley em1 Perez Foss PA PA cp Campbell, Kaitlyn, RN RN kc6 Paul Larson RN RN tm6 Ward Amezcua RN bm8 Adolfo Mathis RN bp Zita Feng RN kc6 Corrections: (The following items were deleted from the chart) 14:50 14:50 BLOOD CULTURE*+BA.LAB.BRZ ordered. EDMS EDMS 14:50 14:50 CBC+H.LAB.BRZ ordered. EDMS EDMS 14:50 14:50 COMPREHENSIVE METABOLIC PANEL+C.LAB.BRZ ordered. EDMS EDMS 14:50 14:50 LACTATE+C.LAB.BRZ ordered. EDMS EDMS 14:50 14:50 PROTIME (+INR)+COAG.LAB.BRZ ordered. EDMS EDMS 14:50 14:50 PTT, ACTIVATED+COAG.LAB.BRZ ordered. EDMS EDMS 14:50 14:50 Urinalysis+U.LAB.BRZ ordered. EDMS EDMS 14:51 14:51 Extremity Venous Uni Ltd+US.RAD.BRZ ordered. EDMS EDMS 14:51 14:51 Lower Extremity Artery Uni Ltd+US.RAD.BRZ ordered. EDMS EDMS 14:51 14:51 Extrmty Nonvasular Limited+US.RAD.BRZ ordered. EDMS EDMS 17:21 17:17 Piperacillin-Tazobactam IVPB 4.5 grams IVPB once over 60 mins; (mix in 100 mL NS) cp ordered. cp 17:45 17:30 cp em1
--- NOTE | 2024-07-31 17:32 | P.HP ---
Certification for Inpatient Patient admitted to: Inpatient With expected LOS: >2 Midnights Patient will require the following post-hospital care: None Practitioner: I am a practitioner with admitting privileges, knowledge of patient current condition, hospital course, and medical plan of care. Services: Services provided to patient in accordance with Admission requirements found in Title 42 Section 412.3 of the Code of Federal Regulations Patient History Date of Service: 07/31/24 Reason for admission: Right lower extremity abscess History of Present Illness: 33-year-old male with history of insulin-dependent diabetes, hypertension, hyperlipidemia presents the emergency department with chief complaint of right lower extremity erythema, suspected abscess which she has noticed coming on for last 4 days. He was evaluated in the emergency department his white blood cell count is 6.1 glucose was 531 and lactate was 2.2, soft tissue ultrasound was performed which showed suspected 3.5 cm heterogenous fluid collection within the medial aspect of the right lower extremity probably an abscess. Venous and arterial Dopplers were negative for acute findings, x-ray of the right tib-fib showed old fractures but no other acute findings. Patient also with chronic wound to the left great toe which is history cared for at home, will obtain x-ray of this for further evaluation. Patient will need to be admitted for severe sepsis, abscess to the right lower extremity with plan for I&D. Allergies vancomycin Allergy (Severe, Verified 02/12/24 14:42) Hives/Rash Home Medications: Alcohol Antiseptic Pads [Alcohol Swabs] 1 each TP TID #100 ea 02/09/24 Amlodipine [Norvasc*] 10 mg PO DAILY #30 tab 02/09/24 Amox/Clavulanate [Augmentin 875-125 Tab] 1 each PO BID #14 tab 02/09/24 Blood Sugar Diagnostic [Blood Glucose Test Strip] 1 each MC TID #30 strip 02/09/24 Blood-Glucose Meter [Blood Glucose Monitoring] 1 each MC TID #1 kit 02/09/24 Doxycycline Hyclate [Vibramycin] 100 mg PO BID #14 cap 02/09/24 Gabapentin 600 mg PO BID #60 tab 02/09/24 Hydrocodone 10/APAP 325 [[place] 10/325*] 1 tab PO Q4H PRN #20 tab 02/09/24 Insulin Degludec [Tresiba Flextouch U-100] 60 unit SQ DAILY #20 ml 02/09/24 Lancets [Comfort Touch Ult Thin Lancet] 1 each MC TID #100 ea 02/09/24 Pen Needle, Diabetic [Insulin Pen Needle] 1 dis.ndl MC TID #100 dis.ndl 02/09/24 allopurinoL [Zyloprim*] 300 mg PO BEDTIME #30 tab 02/09/24 - Past Medical/Surgical History Diabetic: Yes -: Diabetes -: diabetic ulcers -: neuropathy -: sleep apnea -: DVT R leg -: vericose veins -: lymphedema -: rhabdomyolysis -: HTN -: jarvis lower leg surgery: broke and straightened -: debridement bilat great toes -: BLE vein surgery -: tonsillectomy Psychosocial/ Personal History: Patient lives at home. - Family History Father -: Diabetes Mother -: Diabetes Notes: hyotension - Social History Alcohol use: No CD- Drugs: No Caffeine use: No Place of Residence: Home Review of Systems 10-point ROS is otherwise unremarkable Musculoskeletal: Leg Pain Physical Examination - Physical Exam General: Alert, In no apparent distress, Oriented x3 HEENT: Atraumatic, PERRLA, EOMI Neck: Supple, 2+ carotid pulse no bruit, No LAD Respiratory: Clear to auscultation bilaterally, Normal air movement Cardiovascular: Regular rate/rhythm, Normal S1 S2 Gastrointestinal: Normal bowel sounds, No tenderness Musculoskeletal: No tenderness Integumentary: Tenderness/swelling, Erythema, Other (Suspected abscess right medial calf area, Left great toe wound) Neurological: Normal speech, Normal strength at 5/5 x4 extr, Normal tone, Normal affect - Studies Laboratory Data (last 24 hrs) 07/31/24 07/31/24 07/31/24 15:19 15:19 15:19 WBC 6.10 Hgb 12.7 L Hct 37.1 L Plt Count 187 PT 11.7 INR 1.05 APTT 32.2 Sodium 134 L Potassium 4.2 BUN 17 Creatinine 0.89 Glucose 531 H* Total Bilirubin 0.4 AST 11 L ALT 24 Alkaline Phosphatase 92 Assessment and Plan - Plan Assessment: Severe sepsis secondary to right lower extremity cellulitis with abscess Diabetes mellitus type 2insulin-dependent with hyperglycemia Hypertension Hyperlipidemia Distant history of DVT-no longer on anticoagulation Plan: Severe sepsis secondary to right lower extremity cellulitis with abscess Allergy to vancomycin, continue with IV clindamycin General Surgery consulted, n.p.o. for midnight anticipate incision and drainage Blood cultures obtained in ED, follow Repeat lactate pending initial 2.2 Diabetes mellitus type 2insulin-dependent with hyperglycemia Reports he has been noncompliant with his insulin recently only taking his metformin Aggressive sliding scale insulin, A1c in the morning Hypertension Hyperlipidemia Continue home medications when verified Distant history of DVT-no longer on anticoagulation Venous Doppler negative for DVT, not on anticoagulation currently DVT PPX: SCD Code status: Full Discharge Plan: Home Plan to discharge in: 72 Hours - Advance Directives Does patient have a Living Will: No Does patient have a Durable POA for Healthcare: No - Code Status/Comfort Care Code Status Assessed: Yes (Full code) Critical Care: No Time Spent Managing Pts Care (In Minutes): 75
--- NOTE | 2024-07-31 18:50 | RAD REPORT ---
Exam:Foot Left 3 View CLINICAL HISTORY: Left foot pain FINDINGS: Cortical irregularity involving the distal aspect of the first proximal phalanx and proximal aspect o f the first distal phalanx probably is the sequela of old osteomyelitis. No acute fracture or dislocation seen No acute bony destructive lesion noted. If the patient has clinical symptoms to suggest osteomyelitis then MRI would be recommended.
[2024-07-31] MEDS ORDERED: ONDANSETRON 4 MG/2 ML VIAL IV PRN (19:33)
[2024-07-31] MEDS ORDERED: ACETAMINOPHEN 325 MG TABLET PO PRN (19:33)
[2024-07-31 19:51] VITALS: BMI 47.2
[2024-07-31] MEDS: MORPHINE 2 MG/ML SYR IV PRN (20:13)
[2024-07-31] MEDS: INSULIN REGULAR (HUMAN) 100 UNIT/ML SQ SCH (20:16)
[2024-07-31] MEDS: NA CHLORIDE 0.9% 1,000 ML IV SCH (20:16)
[2024-07-31] MEDS: HYDROMORPHONE HCL 1 MG/ML INJ IV PRN (22:30)
[2024-08-01] MEDS: HEPARIN 5000 UNIT/ML 1 ML VIAL SQ SCH (00:38)
[2024-08-01] MEDS: CLINDAMYCIN 600MG/D5W 50 ML IV ONE (00:40)
[2024-08-01] MEDS: CLINDAMYCIN INJ 600 MG in NA CHLORIDE 0.9% 50 ML IV SCH (00:41)
[2024-08-01 06:32] LABS: Absolute Eosinophils 0.2 K/uL (0-0.5); Absolute Lymphocytes (CBC) 1.9 K/uL (0.7-4.9); Absolute Monocytes 0.4 K/uL (0.1-1.3); Basophils % 0.7 % (0-1.3); Eosinophils % 2.8 % (0-4.4); Lymphocytes % 34.9 % (15.3-44.8); MCH 30.2 pg (27.0-35.0); MCHC 34.4 g/dL (32.0-36.0); MCV 87.9 fL (80-100); MPV 8.9 fL (7.6-11.3); Monocytes % 7.1 % (3.3-12.3); Neutrophils % 54.5 % (41.7-73.7); Platelets 162 thou/uL (152-406); RBC Red Blood Cell Count 3.99 M/uL (4.33-5.43); Red Cell Distribution Width 13.7 % (12.1-15.2)
[2024-08-01 06:45] LABS: Anion Gap 5.9 mEq/L (5.0-15.0); Potassium 3.9 mEq/L (3.5-5.1)
[2024-08-01] MEDS: FLU (Fluarix Triv) TS24-25(6MOS UP)/PF 45 MCG/0.5 ML Syringe IM ONE (07:42)
[2024-08-01] MEDS: CLINDAMYCIN 600MG/D5W 50 ML IV SCH (07:44)
--- NOTE | 2024-08-01 08:59 | P.CNS ---
Date of Consult: 08/01/24 Reason for consult: Right leg abscess and left great toe wound History of present illness: Patient is a 43-year-old gentleman presents to the emergency room with 4-day history of a developing infection on his right medial leg associated with redness, warmth, pain and tenderness. Patient also has a left great toe wound which she has been managing at home. Patient denies any sore throat, runny nose, cough, headaches, dizziness, chest pain, fever or chills at this time. Patient had an elevated lactate and glucose greater than 500 on admission. Patient was admitted with severe sepsis and I was consulted for I&D and debridement. Review of systems: Otherwise unremarkable Past medical history: Diabetes type 2, diabetic ulcers, neuropathy, sleep apnea, history of DVT right leg, lymphedema, hypertension Past surgical history: Bilateral lower leg surgery secondary to trauma, debridement of bilateral great toes, bilateral vein surgery and tonsillectomy and adenoidectomy Allergies: Vancomycin Social history: Patient does not smoke or drink alcohol Family history: Diabetes and hypertension Vital signs: Stable, afebrile Physical exam: Awake, alert and oriented x 3 Head and neck exam: No masses Chest: Clear Heart: S1-S2 Abdomen: Soft Extremity: Diminished dorsalis pedis and posterior tibial pulses with approximat mery a 4 x 6 cm area of erythema warmth edema and central fluctuance in the right medial lower leg. Left great toe patient has a wound approximately 3 x 3 cm with surrounding hypertrophic callus and fibrin in the center of the wound Neuro: Nonfocal Diagnostic data: Arterial and venous Dopplers are negative for acute disease, x- ray of the left great toe and right leg show no acute findings, laboratory data reviewedpatient does not have leukocytosis but he does have hyperglycemia which is being controlled. Assessment: Right leg abscess with cellulitis and a nonhealing grade 2 diabetic ulcer on the left great toe Plan/recommendation: IV antibiotics as ordered. To the OR for incision, drainage and debridement of right leg abscess and debridement of left great toe woundpatient understands risks, benefits and alternatives and agrees to procedure. CC:
[2024-08-01] MEDS ORDERED: Levofloxacin500mg IV 500 MG/100 ML BAG IV SCH (09:00)
[2024-08-01] MEDS: SUCCINYLCHOLINE 20 MG/ML (10 ML) IV ONE (09:06)
[2024-08-01] MEDS ORDERED: propofoL 200 MG/20 ML VIAL IV ONE (09:08)
[2024-08-01] MEDS ORDERED: MIDAZOLAM HCL 2 MG/2 ML INJ ONE (09:08)
[2024-08-01] MEDS ORDERED: FENTANYL CITR 100 MCG/2 ML ONE (09:08)
[2024-08-01] MEDS: COLLAGENASE 30 GM OINTMENT TOP ONE (09:33)
[2024-08-01] MEDS: BUPIVACAINE 0.5% PF 10 ML VIAL ONE (09:35)
[2024-08-01] MEDS ORDERED: Phenylephrine HCl 10 MG/ML 1 ML VIAL ONE (09:45)
--- NOTE | 2024-08-01 10:02 | P.OP ---
Date of Service: 08/01/24 Preop diagnosis: Abscess and cellulitis right medial leg, nonhealing diabetic ulcer grade 2 left great toe Postop diagnosis: Same Procedure performed: Incision, drainage and debridement of right leg abscess, excisional debridement of left great toe wound 4 x 2 cm to subcutaneous tissue Surgeon: Jermain Johns MD Associate Financial Advisor: Susan CABA Estimated blood loss: Minimal Specimen: Pus and debridement tissue Findings: As above Anesthesia: General Complications: None Drains: None Fluids and blood products: Nonapplicable Disposition: Recovery room Operative note: Patient brought to the OR and placed in supine position. General anesthesia began. Patient prepped and draped in usual sterile fashion. Marcaine 0.5% infiltrated locally. 15 blade used to make approximately a 4 x 1 cm incision in the right medial and leg subcutaneous tissue divided. Pus evacuated. Cultures done. Necrotic tissue debrided to subcutaneous tissue. Bleeding controlled cautery. Santyl wet-to-dry dressing applied. On the left great toe wound, scissors used to debride the hypertrophic skin around the wound approximately 4 x 2 cm to deep dermis area. Curette used to debride the wound down to the subcutaneous tissue area. Bleeding controlled with cautery and pressure. Medihoney wet-to-dry dressing applied as well. Patient awakened and taken to recovery room in good general condition. CC:
[2024-08-01 10:26] VITALS: O2SAT 95
[2024-08-01] MEDS: FENTANYL CITR 100 MCG/2 ML ONE (10:30)
--- NOTE | 2024-08-01 11:31 | P.PN ---
Date of Service: 08/01/24 Subjective: Doing well this morning No new complaints No acute events overnight ROS: 10 point ROS as noted above, otherwise negative Physical exam GEN: Alert, oriented, NAD HEENT: Normal conjunctiva, sclera anicteric CV: Regular rate and rhythm, no edema Pulm: Nonlabored respirations on room air ABD: Soft, nontender, nondistended MSK: No joint tenderness Integumentary: No rashes, abscess to right medial calf, nonhealing diabetic foot wound to left great toe Neuro: Normal speech, normal affect Vitals reviewed Assessment: Severe sepsis secondary to right lower extremity cellulitis with abscess S/P I&D 08/01 Diabetes mellitus type 2insulin-dependent with hyperglycemia Hypertension Hyperlipidemia Distant history of DVT-no longer on anticoagulation Plan: Severe sepsis secondary to right lower extremity cellulitis with abscess S/P I&D 08/01 Allergy to vancomycin, continue with IV clindamycin General Surgery consulted had I&D 08/01 and debridement of left great toe wound Continue antibiotics, await cultures Blood cultures obtained in ED, follow Diabetes mellitus type 2insulin-dependent with hyperglycemia Reports he has been noncompliant with his insulin recently only taking his metformin Aggressive sliding scale insulin, A1c pending Hypertension Hyperlipidemia Continue home medications when verified Distant history of DVT-no longer on anticoagulation Venous Doppler negative for DVT, not on anticoagulation currently DVT PPX: SCD Code status: Full Discharge Plan: Home Plan to discharge in: 72 Hours Time Spent Managing Pts Care (In Minutes): 35
[2024-08-01] MEDS: HYDROCODONE/APAP 5/325 MG TAB PO PRN (16:09)
[2024-08-01] MEDS: Levofloxacin500mg IV 500 MG/100 ML BAG IV SCH (20:35)
[2024-08-01] MEDS: INSULIN REGULAR (HUMAN) 100 UNIT/ML SQ SCH (20:36)
[2024-08-01] MEDS: INSULIN GLARGINE 100 UNIT/ML SQ SCH (20:37)
[2024-08-02 06:31] LABS: Absolute Eosinophils 0.1 K/uL (0-0.5); Absolute Lymphocytes (CBC) 2.1 K/uL (0.7-4.9); Absolute Monocytes 0.4 K/uL (0.1-1.3); Absolute Neutrophil 2.7 K/uL (1.8-8.0); Basophils % 0.6 % (0-1.3); Eosinophils % 2.4 % (0-4.4); Hematocrit 37.3 % (39.6-49.0); Hemoglobin 12.7 g/dL (13.6-17.9); Lymphocytes % 38.8 % (15.3-44.8); MCV 88.3 fL (80-100); MPV 8.3 fL (7.6-11.3); Monocytes % 7.7 % (3.3-12.3); Neutrophils % 50.5 % (41.7-73.7); Nucleated Red Blood Cells % 0.2 % (0-0); Platelets 165 thou/uL (152-406); RBC Red Blood Cell Count 4.22 M/uL (4.33-5.43); Red Cell Distribution Width 13.4 % (12.1-15.2)
[2024-08-02 06:49] LABS: Anion Gap 3.9 mEq/L (5.0-15.0); Potassium 3.9 mEq/L (3.5-5.1)
--- NOTE | 2024-08-02 10:47 | P.PN ---
Date of Service: 08/02/24 Subjective: Doing well this morning No new complaints No acute events overnight ROS: 10 point ROS as noted above, otherwise negative Physical exam GEN: Alert, oriented, NAD HEENT: Normal conjunctiva, sclera anicteric CV: Regular rate and rhythm, no edema Pulm: Nonlabored respirations on room air ABD: Soft, nontender, nondistended MSK: No joint tenderness Integumentary: No rashes, abscess to right medial calf, nonhealing diabetic foot wound to left great toe Neuro: Normal speech, normal affect Vitals reviewed Assessment: Severe sepsis secondary to right lower extremity cellulitis with abscess S/P I&D 08/01 Diabetes mellitus type 2insulin-dependent with hyperglycemia Hypertension Hyperlipidemia Distant history of DVT-no longer on anticoagulation Plan: Severe sepsis secondary to right lower extremity cellulitis with abscess S/P I&D 08/01 Allergy to vancomycin, continue with IV clindamycin/levaquin General Surgery consulted had I&D 08/01 and debridement of left great toe wound Continue antibiotics, await blood and wound cultures Will need to follow up with Dr. Johns in wound healing Saturday afternoons or mornings starting a week after discharge Diabetes mellitus type 2insulin-dependent with hyperglycemia Reports he has been noncompliant with his insulin recently only taking his metformin Aggressive sliding scale insulin, A1c pending Hypertension Hyperlipidemia Continue home medications when verified Distant history of DVT-no longer on anticoagulation Venous Doppler negative for DVT, not on anticoagulation currently DVT PPX: SCD Code status: Full Discharge Plan: Home Plan to discharge in: 72 Hours Time Spent Managing Pts Care (In Minutes): 35
--- NOTE | 2024-08-02 11:22 | PN ---
Date of Progress Note: 08/02/2024 Subjective: The patient is awake, alert. No complaint. Vitals stable, afebrile. Cultures are pend ing; however, the Gram stains have been reviewed. The patient has Staph aureus in his urine and gram -negative rods and gram-positive cocci in clusters in the wound. His dressing is clean, dry, intact. Assessment: Incision, drainage, and debridement of right leg abscess and debridement of left great t oe wound. Recommendation: Check cultures and adjust antibiotics accordingly. The patient might be discharged home on oral antibiotics. Wound care as ordered. The patient's family is going to come in later tod ay and will be taught how to do wound care. It is important that the patient have outpatient followu p for his diabetes as well as his wound care. I will be happy to see him in the wound clinic upon trudy schmidt. Plan of care discussed with the hospitalist team. Continue antibiotics as ordered. Wound care as ordered for the time being. /MODL Voice ID: [id number] Report ID: [id number]
[2024-08-02] MEDS: FLU (Fluarix Triv) TS24-25(6MOS UP)/PF 45 MCG/0.5 ML Syringe IM ONE (11:28)
--- NOTE | 2024-08-02 15:06 | EKG ---
Test Date: 2024-07-31 Test Time: 15:00:49 Art Gilder: SOM MEASUREMENT RESULTS: Intervals: Rate: 95 KS: 144 QRSD: 86 QT: 336 QTc: 422 [place]: P: 45 KS: 144 QRS: 96 T: -9 INTERPRETIVE STATEMENTS: Normal sinus rhythm Low voltage QRS Borderline ECG Compared to ECG 02/03/2024 16:51:36 Low QRS voltage now present Electronically Signed On 08-02-24 15:05:55 CDT by Cedrick Hart
[2024-08-03 05:45] LABS: Absolute Eosinophils 0.2 K/uL (0-0.5); Absolute Lymphocytes (CBC) 2.1 K/uL (0.7-4.9); Absolute Monocytes 0.6 K/uL (0.1-1.3); Absolute Neutrophil 2.9 K/uL (1.8-8.0); Basophils % 0.4 % (0-1.3); Eosinophils % 3.1 % (0-4.4); Hematocrit 39.1 % (39.6-49.0); Lymphocytes % 35.8 % (15.3-44.8); MCH 29.5 pg (27.0-35.0); MCHC 33.1 g/dL (32.0-36.0); MPV 8.8 fL (7.6-11.3); Monocytes % 9.8 % (3.3-12.3); Neutrophils % 50.9 % (41.7-73.7); Nucleated Red Blood Cells % 0.1 % (0-0); Platelets 186 thou/uL (152-406); Red Cell Distribution Width 13.7 % (12.1-15.2)
[2024-08-03 06:03] LABS: Anion Gap 5.8 mEq/L (5.0-15.0); Potassium 3.8 mEq/L (3.5-5.1)
[2024-08-03] MEDS: HYDROCODONE/APAP 10/325 TAB PO PRN (08:24)
[2024-08-03 08:54] VITALS: BP 146/70; TEMP 97.7
--- NOTE | 2024-08-03 10:19 | P.DS ---
Admission Date: 07/31/24 Discharge Date: 08/03/24 Disposition: ROUTINE DISCHARGE Discharge Condition: GOOD Reason for Admission: Right lower extremity abscess Consultations: General surgery-Dr. Johns Brief History of Present Illness: 33-year-old male with history of insulin-dependent diabetes, hypertension, hyperlipidemia presents the emergency department with chief complaint of right lower extremity erythema, suspected abscess which she has noticed coming on for last 4 days. He was evaluated in the emergency department his white blood cell count is 6.1 glucose was 531 and lactate was 2.2, soft tissue ultrasound was performed which showed suspected 3.5 cm heterogenous fluid collection within the medial aspect of the right lower extremity probably an abscess. Venous and arterial Dopplers were negative for acute findings, x-ray of the right tib-fib showed old fractures but no other acute findings. Patient also with chronic wound to the left great toe which is history cared for at home, will obtain x-ray of this for further evaluation. Patient will need to be admitted for severe sepsis, abscess to the right lower extremity with plan for I&D. Hospital Course: Assessment: Severe sepsis secondary to right lower extremity cellulitis with abscess S/P I&D 08/01 Diabetes mellitus type 2insulin-dependent with hyperglycemia Hypertension Hyperlipidemia Distant history of DVT-no longer on anticoagulation Patient was admitted to the hospital for abscess to the right lower extremity, chronic diabetic foot wound to the left great toe. On 08/01 he underwent incision and drainage of right leg abscess and debridement of the left great toe wound. He has done well postoperatively, his wound cultures grew Staph aureus resistant only to penicillin. He was seen by general surgery who recommends outpatient follow-up in the wound healing center for further management. His blood sugars were significantly elevated on admission, A1c was 11.8. He reports that he was previously taking his mother's insulin at home but she and he has been without insulin for about a month now. He does not currently have insurance but he does have a job and is going to work on enrolling in health insurance to better be able to afford his medical supplies including his insulin. In the meantime he will be prescribed NPH 70/30 insulin as it is currently the cheapest option for him. At discharge he will be prescribed the following new medications: Cipro 500 mg by mouth twice daily for 10 days Doxycycline 100 mg by mouth twice daily for 10 days 70/30 NPH insulin 20 units twice daily-will need to be titrated further with PCP As needed pain medications Continue other home medications as previously prescribed Dressing change instructions per general surgery below Sobeida wet-to-dry dressing changes daily as instructed Follow-up in the wound center in my clinic next week Vital Signs/Physical Exam: Temp Pulse Resp BP Pulse Ox 97.7 F 69 20 146/70 H 96 08/03/24 08:00 08/03/24 08:00 08/03/24 08:00 08/03/24 08:00 08/03/24 08:00 General: Alert, In no apparent distress, Oriented x3 HEENT: Atraumatic, PERRLA Neck: Supple, JVD not distended Respiratory: Clear to auscultation bilaterally, Normal air movement Cardiovascular: Regular rate/rhythm, Normal S1 S2 Gastrointestinal: Normal bowel sounds, No tenderness Musculoskeletal: No tenderness Integumentary: Other (Dressings CDI to RLE and LLE (foot)) Neurological: Normal speech, Normal tone, Normal affect Laboratory Data at Discharge: WBC 5.70 thou/uL (4.3-10.9) 08/03/24 05:00 Hgb 13.0 g/dL (13.6-17.9) L 08/03/24 05:00 Hct 39.1 % (39.6-49.0) L 08/03/24 05:00 Plt Count 186 thou/uL (152-406) 08/03/24 05:00 PT 11.7 SECONDS (9.4-12.5) 07/31/24 15:19 INR 1.05 07/31/24 15:19 APTT 32.2 SECONDS (24.3-36.9) 07/31/24 15:19 Sodium 133 mEq/L (136-145) L 08/03/24 05:00 Potassium 3.8 mEq/L (3.5-5.1) 08/03/24 05:00 BUN 12 mg/dL (7-18) 08/03/24 05:00 Creatinine 0.55 mg/dL (0.70-1.30) L 08/03/24 05:00 Glucose 214 mg/dL (74-106) H 08/03/24 05:00 Total Bilirubin 0.4 mg/dL (0.2-1.0) 07/31/24 15:19 AST 11 U/L (15-37) L 07/31/24 15:19 ALT 24 U/L (16-61) 07/31/24 15:19 Alkaline Phosphatase 92 U/L (45-117) 07/31/24 15:19 Home Medications: Alcohol Antiseptic Pads [Alcohol Swabs] 1 each TP TID #100 ea 02/09/24 Amlodipine [Norvasc*] 10 mg PO DAILY #30 tab 02/09/24 Blood Sugar Diagnostic [Blood Glucose Test Strip] 1 each MC TID #30 strip 02/09/24 Blood-Glucose Meter [Blood Glucose Monitoring] 1 each MC TID #1 kit 02/09/24 Gabapentin 600 mg PO BID #60 tab 02/09/24 Hydrocodone 10/APAP 325 [[place] *] 1 tab PO Q4H PRN #20 tab 02/09/24 Lancets [Comfort Touch Ult Thin Lancet] 1 each MC TID #100 ea 02/09/24 Pen Needle, Diabetic [Insulin Pen Needle] 1 dis.ndl MC TID #100 dis.ndl 02/09/24 allopurinoL [Zyloprim*] 300 mg PO BEDTIME #30 tab 02/09/24 Ciprofloxacin HCl 500 mg PO BID 10 Days #20 tab 08/03/24 Doxycycline Hyclate 100 mg PO BID 10 Days #20 tab 08/03/24 Insulin NPH Hum/Reg Insulin Hm [Novolin 70-30 Flexpen] 20 unit SQ BID #5 pe 08/03/24 New Medications: Ciprofloxacin HCl 500 mg PO BID 10 Days #20 tab Doxycycline Hyclate 100 mg PO BID 10 Days #20 tab Insulin NPH Hum/Reg Insulin Hm [Novolin 70-30 Flexpen] 20 unit SQ BID #5 pe Physician Discharge Instructions: Patient was admitted to the hospital for abscess to the right lower extremity, chronic diabetic foot wound to the left great toe. On 08/01 he underwent incision and drainage of right leg abscess and debridement of the left great toe wound. He has done well postoperatively, his wound cultures grew Staph aureus resistant only to penicillin. He was seen by general surgery who recommends outpatient follow-up in the wound healing center for further management. His blood sugars were significantly elevated on admission, A1c was 11.8. He reports that he was previously taking his mother's insulin at home but she and he has been without insulin for about a month now. He does not currently have insurance but he does have a job and is going to work on enrolling in health insurance to better be able to afford his medical supplies including his insulin. In the meantime he will be prescribed NPH 70/30 insulin as it is currently the cheapest option for him. At discharge he will be prescribed the following new medications: Cipro 500 mg by mouth twice daily for 10 days Doxycycline 100 mg by mouth twice daily for 10 days 70/30 NPH insulin 20 units twice daily-will need to be titrated further with PCP As needed pain medications Continue other home medications as previously prescribed Dressing change instructions per general surgery below Santyl wet-to-dry dressing changes daily as instructed Follow-up in the wound center in my clinic next week Diet: ADA Activity: Ad cesar Followup: Jermain Johns MD [ACTIVE - CAN ADMIT] - 1-2 Weeks (Follow-up in my wound during clinic either Saturday afternoon or morning of next week) SABRA SHETTY [Primary Care Provider] - Time spent managing pt's care (in minutes): 45
--- NOTE | 2024-08-03 11:31 | PN ---
Date of Progress Note: 08/03/2024 Subjective: Patient is awake, alert. No complaint. Objective: Vitals stable, afebrile. Cultures are growing Staph aureus, sensitive to oral antibiotics. Dressing is clean, dry, and intact. Assessment: Status post I and D of right leg abscess and debridement of the left great toe wound. Recommendations: The patient can be discharged on oral antibiotics, Cipro and Bactrim or doxycycline. Follow up in the Wound Healing Center next week in my clinic. Follow up with his PCP or clinic. Manage his diabetes and wound care as ordered. Discharge plan discussed with the hospitalist. /MODL Voice ID: [id number] Report ID: [id number]
[2024-08-03] MEDS ORDERED: INSULIN GLARGINE 100 UNIT/ML SQ SCH (21:00)
== END 2024-08-03 10:36 | disposition home or self-care (01) | DRG 854 ==
LOC: ER 14:26 → ERHOLD 17:25 → 4TH 18:29
PROVIDERS: ADMIT Hospitalist; ATTEND Internal Medicine Sleep Medicine
PROC: 0JBR0ZZ Excision of Left Foot Subcutaneous Tissue and Fascia, Open Approach (ICD-10-PCS; principal; 2024-08-01 09:00)
PROC: 0JBN0ZZ Excision of Right Lower Leg Subcutaneous Tissue and Fascia, Open Approach (ICD-10-PCS; 2024-08-01 09:00)
DX: A41.01 Sepsis due to Methicillin susceptible Staphylococcus aureus (principal); L02.415 Cutaneous abscess of right lower limb; Z68.42 Body mass index [BMI] 45.0-49.9, adult; Z16.11 Resistance to penicillins; L03.115 Cellulitis of right lower limb; R65.20 Severe sepsis without septic shock; E66.9 Obesity, unspecified; I10 Essential (primary) hypertension; E78.00 Pure hypercholesterolemia, unspecified; E11.65 Type 2 diabetes mellitus with hyperglycemia; E11.40 Type 2 diabetes mellitus with diabetic neuropathy, unspecified; E11.621 Type 2 diabetes mellitus with foot ulcer; L97.529 Non-pressure chronic ulcer of other part of left foot with unspecified severity; S91.312A Laceration without foreign body, left foot, initial encounter; F17.210 Nicotine dependence, cigarettes, uncomplicated; Z79.4 Long term (current) use of insulin; Z88.1 Allergy status to other antibiotic agents; Z89.421 Acquired absence of other right toe(s); Z86.718 Personal history of other venous thrombosis and embolism; Z91.148 Patient's other noncompliance with medication regimen for other reason
CPT/HCPCS: 36415; 76882; 80048; 80053; 81001; 82947; 83036; 83605; 85025; 85610; 85730; 87040; 87070; 87075; 87077; 87086; 87088; 87186; 87205; 88304; 93005; 93926; 93971; 96361; 96365; 96367; 96375; 99285; J1171; J1644; J2250; J2270; J2371; J2405; J2704; J3010; J3590; J7030

== ENCOUNTER 2024-12-23 20:48 | Inpatient (IN) | payer OTHER, SELFPAY ==
--- OUTSIDE RECORDS SUMMARY | 2024-12-23 20:51 | XMS REPORT | Continuity of Care Document ---
Author Name Unknown Address [address] [facility] [place] [address] [facility] Address [address] [place] [address] Care Team Providers Care Channeler Outsole Name Role Phone Unavailable Unavailable Unavailable Payers Payer Name Policy Type Policy Number Effective Date Expirati on Date Source Allergies, Adverse Reactions, Alerts Allergy Name Allergy Type Status Severity Reaction(s) Onset Date Inactive Date Treating Clinician Comments Source No Allergy Informat ion Availabl e DA Active U 12-01 00:00: 00 [facility] vancomyc in DA Active SV 12-01 00:00: 00 [facility] Results Test Description Test Time Test Comments Results Result Co mments Source CULTURE, URINE 2022-06-07 11:52:31 SPECIMEN NUMBER: [id number] CULTURE, URINE SPECIMEN NUMBER: [id number] SPECIMEN COMMENT: URINE SOURCE: URINE REPORT STATUS: FINAL FINAL REPORT: 06/07/2022 <10,000 CFU/ML UROGENITAL SHELIA PRESENT NO COMMON PATHOGENS COMPREHENSIVE METABOLIC [id number] 07:07:13* Test Item Value Reference Range Interpretation Comme nts GLUCOSE (test code = 2217) 269 MG/DL 70-99 H BUN (test code = 2208) 24 MG/DL 6-20 H CREATININE (test code = 2214) 0.59 MG/DL 0.80-1.40 L eGFR (2020 CKD-EPI) (test code = ) 123 ML/MIN/1.73 >60 CALC BUN/CREAT (test code = 2234) 41 RATIO 6-28 H SODIUM (test code = 2230) 136 MEQ/L 133-146 POTASSIUM (test code = 2227) 4.8 MEQ/L 3.5-5.4 CHLORIDE (test code = 2214) 100 MEQ/L 95-107 CARBON DIOXIDE (test code = 2205) 23 MEQ/L 19-31 CALCIUM (test code = 2208) 9.4 MG/DL 8.5-10.5 PROTEIN, TOTAL (test code = 2228) 7.6 G/DL 6.1-8.3 ALBUMIN (test code = 2200) 4.0 G/DL 3.5-5.2 CALC GLOBULIN (test code = 2239) 3.6 G/DL 1.9-3.7 CALC A/G RATIO (test code = 2233) 1.1 RATIO 1.0-2.6 BILIRUBIN, TOTAL (test code = 2206) <0.2 MG/DL See_Comment [Automated me ssage] The system which generated this result transmitted reference range: <=1.2. The reference range was not used to interpret this result as normal/abnormal. ALKALINE PHOSPHATASE (test code = 2203) 75 U/L 40-119 AST (test code = 2217) 18 U/L 9-50 ALT (test code = 2218) 29 U/L 5-50 ALBUMIN/CREATININE RATIO, URINE, [id number] 05:00:40* Test Item Value Reference Range Interpretation Comme nts CREATININE, URINE, CONC. (test code = 2072) 87.3 MG/DL NOT ESTAB ALBUMIN, URINE, RANDOM (test code = 87801) 2.1 MG/DL NOT ESTAB CALC ALBUMIN/CREAT, RND (test code = 51719) 24 MG/G <30 Note: Albumin/Creatinine ratio reference interval reflects ADA and NKF guidelines. HEMOGLOBIN [id number] 03:59:22* Test Item Value Reference Range Interpretation Comme nts HEMOGLOBIN A1c (test code = 20615) 10.5 % 4.2-5.6 H [employer] GUIDELINES FOR HGB A1C: PREDIABETES/INCREASED RISK . . . . . . . 5.7-6.4% DIAGNOSIS OF DIABETES . . . . . . . . . >=6.5% WITH CONFIRMATION OR APPROPRIATE SYMPTOMS NOTE: ASSAY MAY BE AFFECTED BY HEMOGLOBINOPATHIES (SICKLE CELL ANEMIA, S-C DISEASE, OTHERS) OR ARTIFICIALLY LOWERED BY DECREASED RED CELL SURVIVAL (HEMOLYTIC ANEMIAS, BLOOD LOSS, ETC.). CONSIDER ALTERNATE TESTING OR LABORATORY CONSULTATION. UNLESS OTHERWISE INDICATED, ALL TESTING PERFORMED [facility] [employer] [address] [place] [address] SHUTTLE THREADER: MAKEDA BARTLETT M.D. [place] NUMBER [id number] [facility] [place]. [id number] CBC W/AUTO DIFF WITH [id number] 02:24:38* Test Item Value Reference Range Interpretation Comme nts WBC (test code = 1001) 6.9 K/UL 3.5-11.0 RBC (test code = 1002) 5.12 M/UL 4.50-6.10 HEMOGLOBIN (test code = 1003) 14.9 G/DL 13.5-17.0 HEMATOCRIT (test code = 1004) 43.1 % 40.0-51.0 MCV (test code = 1005) 84.2 fL 80.0-99.0 MCH (test code = 1006) 29.1 PG 25.0-33.0 MCHC (test code = 1007) 34.6 G/DL 31.0-36.0 RDW (test code = 1038) 13.0 % 11.5-15.0 NEUTROPHILS (test code = 1008) 60.2 % LYMPHOCYTES (test code = 1010) 32.3 % MONOCYTES (test code = 1011) 5.3 % EOSINOPHILS (test code = 1012) 1.2 % BASOPHILS (test code = 1013) 0.3 % IMMATURE GRANULOCYTES (test code = 1036) 0.7 % NUCLEATED RBCS (test code = 1065) 0.0 /100 WBC'S See_Comment [Automated [employer] ge] The system which generated this result transmitted reference range: 0.0. The reference range was not used to interpret this result as normal/abnormal. PLATELET COUNT (test code = 1015) 241 K/UL 130-400 ABSOLUTE NEUTROPHILS (test code = 1066) 4.18 K/UL 1.50-7.50 ABSOLUTE LYMPHOCYTES (test code = 1067) 2.24 K/UL 1.00-4.00 ABSOLUTE MONOCYTES (test code = 1068) 0.37 K/UL 0.20-1.00 ABSOLUTE EOSINOPHILS (test code = 1040) 0.08 K/UL 0.00-0.50 ABSOLUTE BASOPHILS (test code = 1069) 0.02 K/UL 0.00-0.20 ABS IMMATURE GRANULOCYTES (test code = 1020) 0.05 K/UL 0.00-0.10 ABS NUCLEATED RBCS (test code = 63812) 0.00 K/UL 0.00-0.11 [id number] 11:29:00* Test Item Value Reference Range Interpretation Comme nts GLUBED (test code = GLUBED) 202 mg/dL 70-110 H BASIC METABOLIC [id number] 05:36:00* Test Item Value Reference Range Interpretation [...] code = CA) 8.2 mg/dL 7.8-10.9 N [id number] 05:01:00* Test Item Value Reference Range Interpretation Comme nts GLUBED (test code = GLUBED) 185 mg/dL 70-110 H CBC W/AUTO [id number] 04:37:00* Test Item Value Reference Range Interpretation [...] code = NRBC#) 0.00 K/mm3 0.00-0.20 N [id number] 20:40:00* Test Item Value Reference Range Interpretation Comme nts GLUBED (test code = GLUBED) 256 mg/dL 70-110 H [id number] 17:24:00* Test Item Value Reference Range Interpretation Comme nts GLUBED (test code = GLUBED) 244 mg/dL 70-110 H [id number] 11:31:00* Test Item Value Reference Range Interpretation Comme nts GLUBED (test code = GLUBED) 272 mg/dL 70-110 H - DUP LE ART [id number] 09:44:00Camp[facility]: [facility] 1980 Age[facility]S: 37/M [address] [facility] Unit #: [id number] Loc: [address] [place], [place] [address] Phys: Keny Duran MD Acct: [id number] Dis Date: Status: ADM IN PHONE #: [phone] Exam Date: 12/02/2018 0339 FAX #: [phone] Reason: diabetic ulcers EXAMS: CPT CODE: [id number] DUP LE ART ARAVIND 29903 HISTORY: Ulcers TECHNIQUE: Grayscale B-mode, color-flow, and [...] LLOYD OGLESBY M.D. Facility ACR Accreditation for Ultrasound- November 2011 CC: Keny Duran MD; Sunday Mendoza NP Technologist: SANDY CASTRO RDMS Transcribed Date/Time/By: 12/02/2018 (2921) : By: [email or web address] Orig Print D/T: S: 12/02/2018 (2894) PAGE 1 Signed ReportCOMPREHENSIVE METABOLIC [id number] 06:17:00* Test Item Value Reference Range Interpretation [...] code = ALKP) 84 U/L 45-117 N [id number] 06:17:00* Test Item Value Reference Range Interpretation Comme nts MAGNESIUM (test code = MAG) 2.0 mg/dL 1.5-2.1 N COMPREHENSIVE METABOLIC [id number] 06:10:00* Test Item Value Reference Range Interpretation [...] ( test code = ALKP) U/L 45-117 [id number] 06:10:00* Test Item Value Reference Range Interpretation Comme nts MAGNESIUM (test code = MAG) mg/dL 1.5-2.1 - CT CHEST W/O [id number] 05:51:00Campus: [facility]: ADM Name: SHILA COWART [facility] : 1980 Age/S: 37/M [address] Unit #: [id number] Loc: [address] [place], [place] [address] Phys: Keny Duran MD Acct: [id number] Dis Date: Status: ADM IN PHONE #: [phone] Exam Date: 12/01/2018533 FAX #: [phone]: PNA CTDI: DLP: Automated exposure control, iterative reconstruction technique, and/oradjustment of mA and/or kV according to patient's size was utilized fooptimum radiation dose reduction. EXAMS: CPT CODE: [id number] CT CHEST W/O CONTRAST 72353 HISTORY: Pneumonia TECHNIQUE: Axial tomograms through the [...] abnormalities on this limited noncontrast examination. at 0551 Reported and signed by: LLOYD OGLESBY M.D. Facility ACR Accreditation forMay 2012 CC: Keny Duran MD; Sunday Mendoza NP Technologist: CLAUDIA LUTZ RT(R)(CT) Transcribed Date/Time/By: 12/02/2018 (0523) : By: [email or web address] Orig Print D/T: S: 12/02/2018 (9758) PAGE 1 Signed ReportCB W/AUTO [id number] 05:44:00* Test Item Value Reference Range Interpretation [...] code = NRBC#) 0.00 K/mm3 0.00-0.20 N [id number] 05:10:00* Test Item Value Reference Range Interpretation Comme nts GLUBED (test code = GLUBED) 201 mg/dL 70-110 H - DUP VEIN [id number] 04:37:00Campus: [facility] 1980 Age/S: 37/M [address] [facility] Unit #: [id number] Loc: [address] [place], [place] [address] Phys: Keny Duran MD Acct: [id number] Dis Date: Status: ADM IN PHONE #: [phone] Exam Date: 12/02/2018237 FAX #: [phone] Reason: BLE SWELLING EXAMS: CPT CODE: [id number] DUP VEIN ARAVIND 72436 HISTORY: Bilateral swelling TECHNI QUE: Grayscale real-time B-mode imaging with color flow [...] Sunday Mendoza NP Technologist: SANDY CASTRO RDMS TranscribedDate/Time/By: 12/02/2018 (0437) : By: [email or web address] Orig Print D/T: S: 12/02/2018 (0441) PAGE 1 SignedReport - XR FOOT 2 VIEWS [id number] 00:17:00FAX: Keny Leonard MD Camps: ER St: ADM FAX: Sunday Mendoza NP [phone] Name: SHILA COWART [facility] : 1980 Age/S: 37/M [address] [facility] Unit #: [id number] Loc: [address] [place], [place] [address] Phys: Keny Duran MD Acct: [id number] Dis Date: Status: ADM IN PHONE #: Exam Date: 12/01/2018 2304 FAX #: [phone] Reason: GREAT TOE ULCER EXAMS: CPT CODE: [id number] XR FOOT [address] [place] [address] LOCATION: V20 EXAM: - XR FOOT 2 VIEWS LT, - XR FOOT 2 VIEWS RT HISTORY: GREAT TOE ULCER TECHNIQUE: Frontal and lateral views of the bilateral foot COMPARISON: None. FINDINGS: No evidence of acute fracture or dislocation. Joint spaces within normal limits. Mild dorsalsoft tissue swelling is present along the left [...] RT (R)(ARRT); ... Transcribed Date/Time/By: 12/02/2018 (0017) :[email or web address] Orig Print D/T: S: 12/02/2018 (0021) Automated exposure control, iterative reconstruction technique, and/oradjustment of mA and/or kV according to patient's size was utilizedfor optimum radiation dose reduction. PAGE 1 Signed Report- XR FOOT 2 VIEWS [id number] 00:17:00FAX: Keny Leonard MD Camps: ER St: ADM FAX: Sunday Mendoza FAMILY SERVICE ASSISTANT [phone] Name: SHILA COWART [facility] : 1980 Age/S: 37/M [address] [facility] Unit #: [id number] Loc: [address] [place], [place] [address] Phys: Keny Duran MD Acct: [id number] Dis Date: Status: ADM IN PHONE #: [phone] Exam Date: 12/01/2018 2304 FAX #: [phone] Reason: GREAT TOE ULCER EXAMS: CPT CODE: [id number] XR FOOT [address] [place] [address] LOCATION: V20 EXAM: - XR FOOT 2 [...] at 0017 Reported and signed by: DONTRELL SONI CC: Keny Duran MD; Sunday Mendoza NP Technologist: JAILENE SWANSON RT (R)(ARRT); ... Transcribed Date/Time/By: 12/02/2018 (0017) :[email or web address] Orig Print D/T: S: 12/02/2018 (0021) Automated exposure control, iterative reconstruction technique, and/oradjustment of mA and/or kV according to pa beau's size was utilizedfor optimum radiation dose reduction. PAGE 1 Signed ReportGLYCOSYLATED HEMOGLOBIN (HA1C)2018-12-01 22:46:00* Test Item Value Reference Range Interpretation Comme nts GLYCOSYLATED HEMOGLOBIN (HA1 C) (test code = GLYHGB) 9.6 % 4.4-6.4 H MEAN BLOOD GLUCOSE [id number] 22:46:00* Test Item Value Reference Range Interpretation Comme nts MEAN BLOOD GLUCOSE CALCULATI ON (test code = MBGCALC) 228.8 URINALYSIS W/O [id number] 21:41:00* Test Item Value Reference Range Interpretation [...] LEUU) NEGATIVE NEGATIVE SOURCE: URINESPECIMEN DESCRIPTION: CMCUA [id number] 21:41:00* Test Item Value Reference Range Interpretation Comme nts UA WBC (test code = WBCU) 2-5 0-5 UA RBC (test code = RBCU) 0-2 0-5 UA SQUAMOUS CELLS (test code = SQU) 5-10 #/lpf NONE SEEN SOURCE: URINESPECIMEN DESCRIPTION: CMCURINALYSIS W/O [id number] 21:04:00* Test Item Value Reference Range Interpretation [...] = LEUU) NEGATIVE NEGATIVE SOURCE: URINESPECIMEN DESCRIPTION: [facility] [id number] 21:04:00* Test Item Value Reference Range Interpretation Comme nts UA WBC (test code = WBCU) 0-5 UA RBC (test code = RBCU) 0-5 SOURCE: URINESPECIMEN DESCRIPTION: [facility]O [id number] 21:04:00* Test Item Value Reference Range Interpretation [...] = LEUU) NEGATIVE NEGATIVE SOURCE: URINESPECIMEN DESCRIPTION: [facility] [id number] 21:04:00* Test Item Value Reference Range Interpretation Comme nts UA WBC (test code = WBCU) 0-5 UA RBC (test code = RBCU) 0-5 SOURCE: URINESPECIMEN DESCRIPTION: CMCPOC LACTIC [id number] 20:50:00* Test Item Value Reference Range Interpretation Comme nts POC LACTIC ACID (test code = POCLAC) 1.61 MMOL/L 0.40-2.00 N - XR CHEST 1 [id number] 20:42:00FAX: Xavier Maguire [phone] Camps: ER St: REG Name: SHILA COWART [facility] : 1980 Age/S: 37/M [address] [facility]: [id number] Loc: [place], [place] [address] Phys: Xavier Maguire MD Acct: [id number] Dis Date: Status: REG ER PHONE #: [phone] Exam Date: 12/01/20182039 FAX #: [phone] Reason: code sepsis EXAMS: CPT CODE: [id number] XR CHEST 1 V 22862 LOCATION: V20 EXAM: - XR CHEST 1 [...] may represent atelectasis or developing infiltrate. at 2042 Reported and signed by: DONTRELL DSOUZA M.D. CC: Xavier Maguire MD Technologist: Keerthi Peraza RT(R)CT(ARRT) Transcribed Date/Ti me/By: 12/01/2018 (2041) :[email or web address] Orig Print D/T: S: 12/01/2018 (2044) Automated exposure control, iterative reconstruction technique, and/oradjustment of mA and/or kV according to patient's sizewas utilizedfor optimum radiation dose reduction. PAGE 1 Signed ReportHEPATIC FUNCTION [id number] 19:50:00* Test Item Value Reference Range Interpretation [...] code = ALKP) 98 U/L 45-117 N [id number] 19:50:00* Test Item Value Reference Range Interpretation Comme nts LIPASE (test code = LIP) 120 U/L 73-393 N Reporting units: International Units/L NT PRO-BRAIN NATRIURETIC [id number] 19:50:00* Test Item Value Reference Range Interpretation Comme nts NT PRO-BRAIN NATRIURETIC PEP TI (test code = PROBNP) 18 pg/mL 0-125 N [id number] 19:50:00* Test Item Value Reference Range Interpretation [...] PROCAL) 0.05 ng/mL 0.00-0.05 N CHEMISTRY 8 [id number] 19:36:00* Test Item Value Reference Range Interpretation [...] CREATBED) 0.7 MG/DL 0.6-1.0 N HEPATIC FUNCTION [id number] 19:36:00* Test Item Value Reference Range Interpretation [...] code = ALKP) 98 U/L 45-117 N [id number] 19:36:00* Test Item Value Reference Range Interpretation Comme nts LIPASE (test code = LIP) 120 U/L 73-393 N Reporting units: International Units/L NT PRO-BRAIN NATRIURETIC [id number] 19:36:00* Test Item Value Reference Range Interpretation Comme nts NT PRO-BRAIN NATRIURETIC PEP TI (test code = PROBNP) 18 pg/mL 0-125 N [id number] 19:36:00* Test Item Value Reference Range Interpretation [...] co de = PROCAL) ng/mL 0.00-0.05 PROTHROMBIN [id number] 19:25:00* Test Item Value Reference Range Interpretation [...] THE PATIENT ON ANY ANTICOAGULANTS? NTHROMBOPLASTIN TIME [id number] 19:25:00* Test Item Value Reference Range Interpretation Comme nts THROMBOPLASTIN TIME PARTIAL (test code = PTT) 27.0 SECONDS 23.0-32.0 N IS THE PATIENT ON ANY ANTICOAGULANTS? NPOC LACTIC [id number] 19:11:00* Test Item Value Reference Range Interpretation Comme nts POC LACTIC ACID (test code = POCLAC) 2.68 MMOL/L 0.40-2.00 H RESULTS MARLENE LED [place] [] [place] [address]/01/18.NMI-MTCRITICA L VALUE READ BACK BY NURSE AND VERIFIED BY TECH? []REFERENCE RANGES FOR: 1) ARTERIAL SAMPLE (0.5-1.6MMOL/L) 2) SPINAL FLUID (0.6-2.2MMOL/L) CBC W/AUTO [id number] 19:08:00* Test Item Value Reference Range Interpretation [...] Notes Date/Time Note Provider Source 2018-12-03 14:02:00 [facility] Discharge Summary REPORT#:[id number] REPORT STATUS: Signed DATE:12/03/18 TIME: 1402 PATIENT: SHILA COWART UNIT #: [id number] ROOM/BED: [facility] : 76 AGE: 37 SEX: M ATTEND: Keny Duran MD ADM AUTHOR: Makeda Cross MD * ALL edits or amendments must be made on the electronic/computer document * PCP PCP PCP: PCP: Keny [...] was started empiric antibody therapy with vancomycin and Zosyn later transitioned to clindamycin. Patient's a WBC [...] pain, N/V, diarrhea, dysuria, hematuria. Med Rec PCP PCP: PCP: [...] 1: Reji Garcia Specialty: OTHER SPECIALTY Phone: [phone] Follow up timeframe: In 1-2 weeks Objective [...] awake, oriented Head/Eyes: atraumatic, clear cornea, EOMI, normocephalic, normal conjunctiva/ sclera ENT: moist mucosal membranes Cardiovascular: regular rate rhythm, normal heart sounds Respiratory: clear to auscultation, no distress, no tenderness, aerating well, symmetric expansion GI: soft, non-tender, no guarding, no rebound, no distention Extremities: moves all Neuro/INVESTMENTS MANAGER: alert, oriented X 3, normal speech Skin: dry, intact Wound/incision: Location: WOUND OF BL FEET. CLEAN AND DRY. Results Findings/Data: Laboratory Tests: 12/03 12/03 12/03 12/02 12/02 1052 0447 0419 2035 1715 Chemistry Sodium (136 - 145 mmol/L) [...] % (Auto) (14 - 40 %) 31.2 [place] % (Auto) (4.0 - 10.2 %) 16.2 H Eos % (Auto) (0 - 4.1 %) 3.3 Baso % (Auto) (0.1 - 0.7 %) 0.5 Neut # (Auto) (2.5 - 8.6 K/mm3) 1.9 L Lymph # (Auto) (1.1 - 3.6 K/mm3) 1.2 [place] # (Auto) (0.3 - 0.9 K/mm3) 0.6 Eos # (Auto) (0.0 - 0.4 #) 0.13 Baso # (Auto) (0.0 - 0.2 K/mm3) 0.02 Nucleated RBC % (0 - 0 %) 0 Nucleated RBCs # (Man) (0.00 - 0.20 K/mm3) 0.00 at 1403 RPT #:[id number] END OF REPORT [facility] 2018-12-02 21:18:00 [facility] Hospitalist Progress Note REPORT#:[id number] REPORT STATUS: Signed DATE:12/02/18 TIME: 2117 PATIENT: SHILA COWART UNIT #: [id number] [address] AGE: 37 SEX: M ATTEND: Keny Duran MD ADM AUTHOR: Salena Mendoza NP * ALL edits or amendments must be made on the electronic/computer document * Subjective Free Text Subj Notes Free Subj Notes: PATIENT IS SEEN AND EXAMINED, WITH FAMILY AT BEDSIDE DURING MY VISIT. HE IS AAOX3, ON ROOM AIR, WITH IV FLUID AND ANTIBIOTIC INFUSING. HE HAS NO NEW COMPLAINTS, FOOT PAIN IS WELL CONTROLLED, DENIES CHEST PAIN, SHORTNESS OF BREATH [...] ASDIR PRN IV Sodium Chloride 1,000 ML .[id number] IV Tramadol HCl 50 MG Q6H PRN PRN PO Dextrose/Water 50 ML ASDIR PRN IV (DC) Physical Exam General appearance: alert, awake, oriented, no acute distress Head/Eyes: atraumatic, normal conjunctiva/sclera, PERRLA ENT: moist mucosal membranes Neck: full range of motion, non-tender, no JVD Cardiovascular: normal capillary refill, normal heart sounds, regular rate rhythm Respiratory: aerating well, clear to auscultation, symmetric expansion, no distress Abdomen: non-tender, normal bowel sounds, soft, no distention Genitourinary: no flank pain Rectal: deferred Extremities: moves all, normal capillary refill Musculoskeletal: normal inspection Neuro/INVESTMENTS MANAGER: alert, oriented X 3, CNII-XII intact, normal speech Considered stroke alert: no Ileana Coma Score: Ileana Coma Score: Response Value Patient intubated? no Ileana eyes: eyes open spontaneously 4 [place] speech: oriented 5 Ileana motor: obeys commands 6 Total 15 Skin: dry, PLANTAR WOUND BILATERAL GREAT TOE, NO DRAINAGE NOTED. Lymphatics: axilla normal, neck normal Psychiatry: normal affect, normal judgment/insight, normal mood Results Findings/Data: Laboratory Tests 12/02 [...] (Auto) (14 - 40 %) 13.3 L [place] % (Auto) (4.0 - 10.2 %) 8.5 Eos % (Auto) (0 - 4.1 %) 0.6 Baso % (Auto) (0.1 - 0.7 %) 0.2 Neut # (Auto) (2.5 - 8.6 K/mm3) 4.8 Lymph # (Auto) (1.1 - 3.6 K/mm3) 0.8 L [place] # (Auto) (0.3 - 0.9 K/mm3) 0.5 [...] - XR FOOT 2 VIEWS LT 12/01 4847 Report Impression - Status: SIGNED Entered: 12/02/2018 [...] evidence of DVT. Impression By: Nellie OGLESBY M.D. ULTRASOUND - DUP LE ART ARAVIND 12/02 0339 Report Impression - Status: SIGNED Entered: 12/02/2018 0944 IMPRESSION: 1. Scattered atherosclerotic plaque demonstrated. No area of long segment occlusion or high-grade flow limiting stenosis. Impression By: Nellie OGLESBY M.D. Diagnosis, Assessment Plan Hospital course to date: IMPRESSION: 1. Uncontrolled diabetes mellitus. 2. Sepsis secondary to bilateral lower extremity ulcers. 3. Obstructive sleep apnea. 4. Obesity hypoventilation syndrome. PLAN: 1. The patient remains admitted to the care of the hospitalist service. 2. Continue on a regimen of clindamycin and Zosyn. Pharmacy consulted for appropriate dosing. 3. Continue on DVT and peptic ulcer prophylaxis. 4. Follow blood cultures. 5. Hydrate the patient with NS at 75 ml an hour. 6. Continue on insulin sliding scale. 7. We have consulted podiatry for evaluation of patient's ulcers. 8. Order bilateral lower extremity arterial and venous Dopplers. 9. Further recommendations as per podiatry and wound care team. 10. Tentative discharge in 24 to 48 hours. at 2126 RPT #:[id number] END OF REPORT [facility] 2018-12-02 21:18:00 [facility] ([facility] Hospitalist Progress Note REPORT#:[id number] REPORT STATUS: Signed DATE:12/02/18 TIME: 2117 PATIENT: SHILA COWART UNIT #: [id number] ROOM[address]BED: [address] : [birth year] AGE: 37 SEX: M ATTEND: Keny Duran MD ADM AUTHOR: Salena Mendoza NP * ALL edits or amendments must be made on the electronic/computer document * Subjective Free Text Subj Notes Free Subj Notes: PATIENT IS SEEN AND EXAMINED, WITH FAMILY AT BEDSIDE DURING MY VISIT. HE IS AAOX3, ON ROOM AIR, WITH IV FLUID AND ANTIBIOTIC INFUSING. HE HAS NO NEW COMPLAINTS, FOOT PAIN IS WELL CONTROLLED, DENIES CHEST PAIN, SHORTNESS OF BREATH [...] ASDIR PRN IV Sodium Chloride 1,000 ML .[id number] IV Tramadol HCl 50 MG Q6H PRN PRN PO Dextrose/Water 50 ML ASDIR PRN IV (DC) Physical Exam General appearance: alert, awake, oriented, no acute distress Head/Eyes: atraumatic, normal conjunctiva/sclera, PERRLA ENT: moist mucosal membranes Neck: full range of motion, non-tender, no JVD Cardiovascular: normal capillary refill, normal heart sounds, regular rate rhythm Respiratory: aerating well, clear to auscultation, symmetric expansion, no distress Abdomen: non-tender, normal bowel sounds, soft, no distention Genitourinary: no flank pain Rectal: deferred Extremities: moves all, normal capillary refill Musculoskeletal: normal inspection Neuro/INVESTMENTS MANAGER: alert, oriented X 3, CNII-XII intact, normal speech Considered stroke alert: no Ileana Coma Score: Ileana Coma Score: Response Value Patient intubated? no Ileana eyes: eyes open spontaneously 4 [place] speech: oriented 5 Ileana motor: obeys commands 6 Total 15 Skin: dry, PLANTAR WOUND BILATERAL GREAT TOE, NO DRAINAGE NOTED. Lymphatics: axilla normal, neck normal Psychiatry: normal affect, normal judgment/insight, normal mood Results Findings/Data: Laboratory Tests 12/02 1715 [id number] Chemistry Sodium (136 - 145 mmol/L) [...] (Auto) (14 - 40 %) 13.3 L [place] % (Auto) (4.0 - 10.2 %) 8.5 Eos % (Auto) (0 - 4.1 %) 0.6 Baso % (Auto) (0.1 - 0.7 %) 0.2 Neut # (Auto) (2.5 - 8.6 K/mm3) 4.8 Lymph # (Auto) (1.1 - 3.6 K/mm3) 0.8 L [place] # (Auto) (0.3 - 0.9 K/mm3) 0.5 [...] Report Impression - Status: SIGNED Entered: 12/02/201820 IMPRESSION: Mild dorsal soft tissue swelling is [...] Report Impression - Status: SIGNED Entered: 12/02/201820 IMPRESSION: Mild dorsal soft tissue swelling is [...] evidence of DVT. Impression By: Nellie OGLESBY M.D. ULTRASOUND - DUP LE ART ARAVIND 12/02 0339 Report Impression - Status: SIGNED Entered: 12/02/2018 0944 IMPRESSION: 1. Scattered atherosclerotic plaque demonstrated. No area of long segment occlusion or high-grade flow limiting stenosis. Impression By: Nellie OGLESBY M.D. Diagnosis, Assessment Plan Hospital course to date: IMPRESSION: 1. Uncontrolled diabetes mellitus. 2. Sepsis secondary to bilateral lower extremity ulcers. 3. Obstructive sleep apnea. 4. Obesity hypoventilation syndrome. PLAN: 1. The patient remains admitted to the care of the hospitalist service. 2. Continue on a regimen of clindamycin and Zosyn. Pharmacy consulted for appropriate dosing. 3. Continue on DVT and peptic ulcer prophylaxis. 4. Follow blood cultures. 5. Hydrate the patient with NS at 75 ml an hour. 6. Continue on insulin sliding scale. 7. We have consulted podiatry for evaluation of patient's ulcers. 8. Order bilateral lower extremity arterial and venous Dopplers. 9. Further recommendations as per podiatry and wound care team. 10. Tentative discharge in 24 to 48 hours. at 2126 at 1029 RPT #:[id number] END OF REPORT [facility] 2018-12-02 14:02:00 [id number] [facility] [address] [place], [place], [address] PATIENT NAME: SHILA COWART ADMIT DATE: 12/01/18 ACCOUNT NO: [id number] ROOM NO: VR.327 AGE: 37 REPORT TYPE: CONSULTATION REPORT SEX: M ADMITTING PHYSICIAN:Keny Duran MD ATTENDING PHYSICIAN:Keny Duran MD CONSULTING PHYSCIAN:Reji Garcia CONSULTATION DATE: 12/02/2018 CONSULTING PHYSICIAN: Reji Garcia DPNancy HISTORY OF PRESENT ILLNESS: This is a 37-year-old male seen in consultation, courtesy of Dr. Duran for evaluation of bilateral hallux ulceration. The patient has [...] time, alert, awake, and well oriented. He denies any chest pain. No palpitation. No nausea, vomiting, or diarrhea. No dysuria or hematuria. His most recent laboratory workup demonstrated white count of 6.2, hemoglobin of 13.2, red blood cell of 4.61, and hematocrit of 40.9. His most recent chemistry demonstrated sodium of 136, potassium of 4.0, BUN of 16, and serum creatinine of 0.7, blood glucose was 196, coming down from 272. The patient is otherwise alert and awake as stated above. Vascular ultrasounds demonstrated triphasic waveforms throughout the lower extremity. There is some scattered atherosclerotic plaque in the area, but no area of occlusion at this time. High-grade flow limiting stenosis, especially to the left lower extremity, but waveforms are seen involving distal anterior tibialis and dorsalis pedis arteries and also monophasic waveforms on the posterior tibialis arteries. Foot x-ray evaluation demonstrated on the left foot, arterial calcifications, which were all over his foot. There is a questionable soft tissue area, which most likely is correlating with the ulceration of the hallux PATIENT NAME: SHILA COWART at this time. No evidence of cortical abnormalities or focal osteopenia associated with this, indicating acute osteomyelitis at this point. PHYSICAL EXAMINATION: GENERAL: The patient is otherwise resting comfortably in bed. He denies any chest pain. No palpitations. No nausea, vomiting, or diarrhea as stated above. EXTREMITIES: Examination of the lower extremity demonstrated open ulcers on the plantar aspect of bilateral hallux with fully granulated base. No signs of drainage, no signs of cellulitis associated with these hallux ulcers. They were noted to be fairly clean. Positive tenderness upon by palpation despite of neuropathy of diabetes, but loss of protective sensation on the plantar aspect of bilateral foot. ASSESSMENT: At this time, bilateral hallux ulcers, diabetic polyneuropathy, and morbid obesity. TREATMENT PLAN: At this time, continue with the local wound care. We will order Iodosorb to the wounds at this point and monitor his progress during the stay here in the hospital. The surgical intervention may be a consideration in the future once the patient becomes more stable and this will be discussed with the patient. This may entitle open surgery and fusion of the metatarsophalangeal joint area in order to prevent further ulceration in this area. We thank Dr. Duran for allowing me to participate in this case. We will continue with local wound care at this time and monitor his progress and plan further. Dictated By: Reji Garcia DPM WT: CON:HIM/ELIAS/NTS Conf#: [id number]/DID#: [id number] Authenticated by Reji Garcia DPM On 12/04/2018 01:28:18 PM at 1328 PATIENT NAME: SHILA COWART [facility] 2018-12-02 02:26:00 [id number] [facility] [address] [place], [place], [address] PATIENT NAME: SHILA COWART ADMIT DATE: 12/01/18 ACCOUNT NO: [id number] ROOM NO: VR.327 AGE: 37 REPORT TYPE: HISTORY AND PHYSICAL SEX: M ADMITTING PHYSICIAN:Keny Duran MD ATTENDING PHYSICIAN:Keny Duran MD ADMISSION DATE: 12/01/2018 HISTORY OF PRESENT ILLNESS: This is a 37-year-old male who patient presented to the Emergency Department with chief complaints of fever, generalized body weakness, and body aches. The patient also reports nonhealing ulcers to the bilateral great toes. In the emergency room, the patient's white cell count was unremarkable. He was also influenza A and B negative. The patient's throat culture was still pending at this time. I reviewed the patient's vital signs and he had a max temperature of 101.1 degrees Fahrenheit upon presentation. The patient was initially tachycardic, but did respond well to IV fluid challenges. Laboratory review with unremarkable lactic acid and unremarkable procalcitonin. However, his glucose was significantly elevated at 342. X-rays were performed of bilateral feet, which showed no evidence of any osteomyelitis to the bilateral great toes. The chest x-ray then was read as having an asymmetrical opacity to the right lung base. However, it appears to be more of an atelectasis than an actual infiltrate. The patient is now admitted to the [...] Twelve-point review of systems was performed and pertinent symptomology mentioned in HPI. All other systems were assessed and nonpertinent. PHYSICAL EXAMINATION: VITAL SIGNS: Current temperature is 98.2 degrees Fahrenheit, heart rate 92, respiration 20, blood pressure 133/83, 96% saturation on room air. GENERAL: Reveals a morbidly obese male, in no acute distress at this time. HEENT: Head atraumatic and normocephalic. Moist mucous membranes. Anicteric sclerae. PATIENT NAME: SHILA COWART NECK: Trachea midline. PULMONARY: Breath sounds are clear to auscultation. No rhonchi or wheezing. CARDIAC: S1, S2. No rubs or gallops. NEUROLOGIC: Cranial nerves II through XII intact. No focal deficits. GASTROINTESTINAL: Abdomen is soft and nontender. Normal bowel sounds. No guarding or rigidity. MUSCULOSKELETAL: The patient has bilateral ulcers to the bilateral great toes. They do appear dusky in color. The patient also has swelling to the bilateral lower extremities with multiple varicosities bilaterally. GENITOURINARY: No flank tenderness. PSYCHIATRIC: The patient is calm and cooperative. Normal affect. LABORATORY DATA: White cell count 8.6 with hemoglobin 14.2, hematocrit 41.7, and platelet count 177,000. Coags unremarkable. Urine shows greater than 1000 glucose. Calcium 1.15. Potassium of 4, chloride 100, BUN 19, creatinine 0.7, glucose 342. A1c 9.6, lactic acid 1.61. Procalcitonin 0.05. RADIOLOGICAL DATA: X-ray of bilateral feet shows the patient to have soft tissue swelling on both great toes consistent with ulcerations. No evidence of any osteomyelitis. Chest x-ray shows the patient to have asymmetric opacity in the right lower lobe. However, it does appear [...] clindamycin and Zosyn. Pharmacy consulted for appropriate dosing. 3. Start the patient on DVT and peptic ulcer prophylaxis. 4. We will obtain blood cultures. 5. Hydrate the patient with NS at 75 ml an hour. 6. Start the patient on insulin sliding scale. 7. We have consulted podiatry for evaluation of patient's ulcers. 8. Order bilateral lower extremity arterial and venous Dopplers. 9. Further recommendations as per podiatry and wound care team. Dictated By: Sunday Mendoza NP for Keny Duran MD WT: HP:ALICIA/LOVELY/RAMIREZ Conf#: [id number]/DID#: [id number] Authenticated and Edited by Sunday Mendoza NP On 12/02/18 9:16:57 PM Authenticated and Edited by Kney Duran MD On 12/04/18 10:26:10 AM PATIENT NAME: SHILA COWART at 1029 at 1029 PATIENT NAME: SHILA COWART [facility] 2018-12-01 18:45:00 [facility] EMERGENCY PROVIDER REPORT REPORT#:[id number] REPORT STATUS: Signed DATE:12/01/18 TIME: 184 PATIENT: SHILA COWART UNIT #: [id number] ROOM/BED: [facility] AGE: 37 SEX: M PCP PHYS: Keny Duran MD SERVICE AUTHOR: Xavier Maguire MD * ALL edits or amendments must be made on the electronic/computer document * HPI-Fever General Confirmed Patient Yes Patient Type New patient Initial Greet Date/Time 12/01/18 183 PCP No PCP Presentation Chief Complaint fever Hx Obtained From Patient )( Onset Occurred Today Symptom Duration Since onset Progression since Onset Gradually worsening Location Head, Throat Radiation Does not radiate Associated with Reports: Chills, Headache, Myalgia, Sore throat, Vomiting. Denies: Abdominal pain, Back pain, Chest pain, Cough, non-productive, Diarrhea, Mental status change, Rash, Shortness of breath, Sputum production. Context Related History Reports: Diabetes mellitus. Immunization [...] throat. Respiratory Denies: Cough, non-productive, Shortness of breath. Cardiovascular Denies: Chest pain. GI Reports: Nausea, Vomiting. Denies: Abdominal pain, Diarrhea. Musculoskeletal Reports: Myalgia. Neurologic Reports: Headache. Denies: Change LOC, Confusion, Dizziness, Generalized weakness, Lightheaded, Numbness, Seizure, Syncope. Portions of this section were scribed by Alison Whitfield on 12/01/18 at 1854 Past Medical History - Adult Stated Complaint FEVER, BODY ACHES, WEAKNESS, PAIN TO RIGHT L Allergies Coded Allergies: vancomycin (Severe, swelling 12/01/18) Home Medications Reported Medications GABAPENTIN (NEURONTIN) 600 MG PO TID metFORMIN (GLUCOPHAGE) 1,000 MG PO BID CARVEDILOL (COREG) 12.5 MG PO BID EMPAGLIFLOZIN (JARDIANCE) 10 MG PO DAILY Review of Nursing Notes Rev avail, and agree Past Medical History: Reports: Diabetes mellitus, Pressure ulcer (bilateral great toes). Additional Surgical History osteotomy of bilateral legs Smoking status for patients 13 years old or older: Never Smoker Other Social History Local resident, Good social support Portions of this section were scribed by Alison Whitfield on 12/01/18 at 2033 Physical Exam Vital Signs Vital Signs First [...] PE General/Const General/Const Awake, Alert, Well developed, Well nourished Text/Dict Notes warm to touch Distress/Hydration Distress moderate. Appearance/Presentation Obese, morbidly. MS Neck Neck Supple, No meningismus, Full range of motion Resp/Chest Respiratory/Chest Breath sounds NL, Breath sounds = bilat, No respiratory distress, No rales, No rhonchi, No wheezing Cardiovascular Cardiovascular Heart rate NL, Regular rhythm, Heart sounds NL, Cap refill not delayed, Peripheral circulation NL, Pulses = bilaterally Lower Ext Edema Bilateral 2+. Abdomen/GI Abdomen/GI Soft, Non-tender, No distention, No palpable mass Skin Skin Color NL, No rash, Warm Color/Condition Diaphoresis present. Neurologic Neurologic Oriented X3, Speech NL, No motor deficits Additional PE MS Lower Extrem Lower Ext/Pelvis/MS Full range of motion, Non-tender, No erythema, Neurologic intact, Vascular intact Text/Dict Notes 2+ edema to bilateral lower extremities, ulcerated wounds noted to the plantar surfaces of the bilateral great toes; wounds do not appear infected Portions of this section were scribed by Alison Whitfield on 12/01/18 at 2114 Interpretation Diagnostics Lab Results Interpretation Results Laboratory Tests 12/01/18 1853: [Embedded Image Not Available] Laboratory Tests: 12/01 Blood Gas VBG Total CO2 (24 - [...] pH (5.0 - 8.5) 6.0 Ur Specific Finger (1.000 - 1.030) 1.010 Urine Protein (NEGATIVE) NEGATIVE Urine Glucose (UA) (NEGATIVE) >=1000 Urine Ketones (NEGATIVE) NEGATIVE Urine Blood (NEGATIVE) NEGATIVE Urine Nitrite (NEGATIVE) NEGATIVE Urine Bilirubin (NEGATIVE) NEGATIVE Urine Urobilinogen (<=1.0 EU/DL) 0.2 EU/DL Ur Leukocyte Esterase (NEGATIVE) NEGATIVE Urine RBC (0 - 5) 0-2 Urine WBC (0 - 5) 2-5 Ur Squamous Epith Cells (NONE SEEN #/lpf) 5-10 12/01 12/01 2361 4126 Chemistry Mean Blood Glucose 228.8 Hemoglobin A1c [...] Coagulation INR (0.93 - 1.2) 1.06 PTT ([place]) (23.0 - 32.0 SECONDS) 27.0 PT Patient/Control [...] (Auto) (14 - 40 %) 11.3 L [place] % (Auto) (4.0 - 10.2 %) 5.7 Eos % (Auto) (0 - 4.1 %) 0.6 Baso % (Auto) (0.1 - 0.7 %) 0.3 Neut # (Auto) (2.5 - 8.6 K/mm3) 7.0 Lymph # (Auto) (1.1 - 3.6 K/mm3) 1.0 L [place] # (Auto) (0.3 - 0.9 K/mm3) 0.5 [...] acute abnormalities on this limited noncontrast examination. Impression By: [email or web address] - LLOYD OGLESBY M.D. RADIOLOGY - XR CHEST 1 V 12/01 2029 Report Impression - Status: SIGNED Entered: 12/01/20182044 IMPRESSION: Asymmetric opacity in the right lung base may represent atelectasis or developing infiltrate. Impression By: [email or web address] Zora DSOUZA M.D. Lab Statement Laboratory studies reviewed and considered in the medical decision-making. Imaging Statement Radiographic studies reviewed and considered in the medical decision-making. ECG #1 Interpretation Date 12/01/18 Time 1847 Interpreted by ED physician NL ECG Interpretation No STEMI Rate 103 ECG Q-T-ST - SC cannot rule out anterior infarct (age undetermined) Rhythm Tachycardia Portions of this section were scribed by Alison Whitfield on 12/01/18 at 2114 Re-Evaluation MDM Free Text MDM Notes Free Text MDM Notes Pt. presents to the ED with fever and URI symptoms. Pt. met sepsis criteria and found to have RLL PNA. Pt. also with bilat. great toe ulcerated wounds but no evidence of infection there. Pt. given IVF and ABX and admitted. Re-Evaluation/Progress Re-Evaluation/Progress 1 Time of [...] Result Date Time Pulse Ox 95 12/01 182 B/P 168/75 12/01 182 B/P Mean 106 12/01 1822 Temp 38.4 [...] entry have been reviewed. Condition Stable Clinical Impression Clinical Impression Primary Impression: Severe sepsis Secondary Impressions: Hyperglycemia, Right lower lobe pneumonia, ULCERATED WOUNDS TO BILATERAL FEET Time of Impression 2033 Disposition Decision Admit Admit Physician Name Keny Duran MD Admit Physician Hospitalist Request Time 2046 Request Date 12/01/18 )( Admission Accepts Yes )( Accepted Time 2113 )( Accepted Date 12/01/18 Call Information pt case discussed with Sunday Mendoza NP taking call for admission Discharge/Care Plan Counseled Regarding Diagnosis, Lab results, Imaging studies, Need for admission Admit Note I have spoken with the patient and/or caregivers. I have explained the patient's condition, diagnoses and treatment plan based on the [...] capability of the emergency department. The patient will be transported for further care and management or will be moved to an observation or inpatient service. I have communicated with the staff or medical practitioner taking over this patient's care. Critical Care Time Spent (minutes): 45 Services Performed Patient management by me, Time spent at bedside, Reviewing test results, Reviewing imaging, Discussing patient care, Documentation in record, Time with fam/surrogate Separately billable procedures excluded from time. CC Note 1 Total critical care time 45 minutes. Total critical [...] spent with the family or caregiver. Quality Measures BP F/U for HTN Referred for BP f/u < 4wk, F/u with PCP/other doc Sep: Lactate Ordered 18 years or older, Lactate lv ordered in ED Sep: Antibiotics Ordered 18 years or older, Antibiotics ordered in ED Sep: Fluid Resuscitation 18 years or older, Rec'd > 1 L crystalloid Supervising Physician Note Scribe Statement Alison Whitfield, 12/01/181931, scribing for and in the presence of Dr. Maguire. Signed By: Alison Whitfield, 12/01/181931 Provider Scribed Statement I personally performed the services described in this documentation and reviewed the documentation that was dictated to the scribe(s) in my presence, and it accurately records my words and actions. Xavier Maguire, 12/02/18 Portions of this section were scribed by Alison Whitfield on 12/01/18 at 2048 at 2241 RPT #:[id number] END OF REPORT TIANNA
[2024-12-23 21:59] LABS: Absolute Eosinophils 0.1 K/uL (0-0.5); Absolute Lymphocytes (CBC) 2.3 K/uL (0.7-4.9); Absolute Monocytes 0.5 K/uL (0.1-1.3); Absolute Neutrophil 3.8 K/uL (1.8-8.0); Basophils % 0.6 % (0-1.3); Eosinophils % 1.3 % (0-4.4); Hematocrit 38.6 % (39.6-49.0); Hemoglobin 13.2 g/dL (13.6-17.9); Lymphocytes % 34.6 % (15.3-44.8); MCH 29.8 pg (27.0-35.0); MCHC 34.1 g/dL (32.0-36.0); MCV 87.3 fL (80-100); MPV 8.5 fL (7.6-11.3); Monocytes % 7.5 % (3.3-12.3); Nucleated Red Blood Cells % 0.4 % (0-0); Platelets 225 thou/uL (152-406); RBC Red Blood Cell Count 4.43 M/uL (4.33-5.43); Red Cell Distribution Width 13.4 % (12.1-15.2)
[2024-12-23] MEDS ORDERED: Meropenem 1000 MG/VIAL IV ONE (22:01)
[2024-12-23] MEDS ORDERED: ONDANSETRON 4 MG/2 ML VIAL ONE (22:01)
[2024-12-23] MEDS ORDERED: methocarbamoL 750 MG TAB ONE (22:01)
[2024-12-23] MEDS ORDERED: MORPHINE 4 MG/ML SYR ONE (22:02)
[2024-12-23] MEDS ORDERED: MORPHINE 2 MG/ML SYR ONE (22:02)
[2024-12-23] MEDS ORDERED: NA CHLORIDE 0.9% 100 ML ONE (22:02)
[2024-12-23 22:05] LABS: PT Prothrombin Time 12.4 SECONDS (10-13.0); Protime INR 1.09
--- NOTE | 2024-12-23 22:24 | RAD REPORT ---
EXAM: Foot Left 3 View HISTORY: left foot pain COMPARISON: 07/31/2024 FINDINGS: Bones: No acute fracture identified. Alignment:No significant malalignment. Degenerative changes:Degenerative changes are present at the first MTP joint and interphalangeal join t. Other: Peripheral vascular calcifications. IMPRESSION: No evidence of acute osseous abnormality involving the imaged foot. No radiographic evidence of osteo myelitis.
[2024-12-23 22:25] LABS: ALT/SGPT 27 U/L (16-61); AST/SGOT 13 U/L (15-37); Albumin/Globulin Ratio 0.6 (1.1-1.8); Alkaline Phosphatase 102 U/L (45-117); Anion Gap 7.7 mEq/L (5.0-15.0); BUN Blood Urea Nitrogen 20 mg/dL (7-18); Bicarbonate 28 mEq/L (21-32); Bilirubin Total 0.4 mg/dL (0.2-1.0); Globulin 4.8 g/dL (2.3-3.5); Glomerular Filtration Rate 109 ml/min (=/>90); NT PRO-BNP 64 pg/mL (<125); Potassium 3.7 mEq/L (3.5-5.1); Protein, Total 7.8 g/dL (6.4-8.2); Sodium Level 133 mEq/L (136-145); Troponin High Sensitivity 8.2 pg/mL (<58.9)
[2024-12-23 22:26] LABS: Bilirubin Direct < 0.2 mg/dL (0-0.2); Bilirubin Indirect, Calculated 0.2 mg/dL (0.2-0.8)
[2024-12-23 22:27] LABS: Glucose Level 468 mg/dL (74-106)
--- NOTE | 2024-12-24 01:15 | ER ---
Nurse's Notes [facility] Name: Addy Quintana Jr Age: 44 yrs Sex: Male : 1980 Arrival Date: 12/23/2024 Time: 20:48 Bed 13 Private MD: Lulu Soto Diagnosis: Left foot infected diabetic ulcer, left foot cellulitis, uncontrolled diabetes Presentation: 12/23 21:25 Chief complaint: Patient states: WOUND TO BOTTOM OF LEFT FOOT. PT REPORTS INCREASED cm10 PAIN AND CHILLS X2 DAYS. Coronavirus screen: Client denies travel out of the [place] in the last 14 days. Ebola Screen: Patient denies travel to an Ebola-affected area in the 21 days before illness onset. Initial Sepsis Screen: Does the patient meet any 2 criteria? HR > 90 bpm. No. Patient's initial sepsis screen is negative. Does the patient have a suspected source of infection? No. Patient's initial sepsis screen is negative. Risk Assessment: Do you want to hurt yourself or someone else? Patient reports no desire to harm self or others. Onset of symptoms was December 23, 2024. 21:25 Method Of Arrival: Wheelchair cm10 21:25 Acuity: FLORENCIO 3 cm10 Triage Assessment: 21:26 General: Appears uncomfortable, Behavior is cooperative. Neuro: No deficits noted. cm10 Level of Consciousness is awake, alert, obeys commands, Oriented to person, place, time, situation, Appropriate for age. Respiratory: No deficits noted. Airway is patent Respiratory effort is even, unlabored, Respiratory pattern is regular, symmetrical. Historical: - Allergies: 21:26 VANCOMYCIN AND DERIVATIVES; cm10 - PMHx: 21:26 DVT; Diabetes - IDDM; Hypercholesterolemia; Hypertension; neuropathy; cm10 - PSHx: 21:26 Dion knee sx; RIGHT MIDDLE TOE AMPUTATION; cm10 - Immunization history:: Adult Immunizations up to date. - Infectious Disease History:: Denies. - Social history:: Smoking status: unknown. - Family history:: not pertinent. Screenin:[facility] ED Fall Risk Assessment (Adult) History of falling in the last 3 months, al5 including since admission No falls in past 3 months (0 pts) Confusion or Disorientation No (0 pts) Intoxicated or Sedated No (0 pts) Impaired Gait Yes (1 pt) Mobility Assist Device Used No (0 pt) Altered Elimination No (0 pt) Score/Fall Risk Level 0 - 2 = Low Risk Oriented to surroundings, Maintained a safe environment, Hourly rounding (assess needs \T\ fall precautionary measures) done. Abuse screen: Denies threats or abuse. Denies injuries from another. Nutritional screening: No deficits noted. Tuberculosis screening: No symptoms or risk factors identified. Assessment: 21:58 General: Appears in no apparent distress. uncomfortable, Behavior is calm, cooperative. al5 Pain: Complains of pain in left foot, left shoulder. Neuro: Level of Consciousness is awake, alert, obeys commands, Oriented to person, place, time, situation. Cardiovascular: Capillary refill < 3 seconds Patient's skin is warm and dry. Respiratory: Airway is patent Respiratory effort is even, unlabored, Respiratory pattern is regular, symmetrical. GI: No signs and/or symptoms were reported involving the gastrointestinal system. : No signs and/or symptoms were reported regarding the genitourinary system. EENT: No signs and/or symptoms were reported regarding the EENT system. Derm: wound to bottom of left foot. patient states it is a diabetic wound. has wrapped up at this time. Musculoskeletal: Reports pain in left foot, left shoulder. 22:56 Reassessment: Patient appears in no apparent distress at this time. No changes from al5 previously documented assessment. Patient and/or family updated on plan of care and expected duration. Pain level reassessed. Patient is alert, oriented x 3, equal unlabored respirations, skin warm/dry/pink. 12/24 01:50 Reassessment: Patient appears in no apparent distress at this time. No changes from al5 previously documented assessment. Patient and/or family updated on plan of care and expected duration. Pain level reassessed. Patient is alert, oriented x 3, equal unlabored respirations, skin warm/dry/pink. performed wound care to bottom of L foot. 02:59 Reassessment: Patient appears in no apparent distress at this time. No changes from al5 previously documented assessment. Patient and/or family updated on plan of care and expected duration. Pain level reassessed. Patient is alert, oriented x 3, equal unlabored respirations, skin warm/dry/pink. Vital Signs: 12/23 21:25 BP 134 / 78; Pulse 94; Resp 18; Temp 97.8(O); Pulse Ox 97% on R/A; Weight 133.81 kg; cm10 Height 5 ft. 7 in. ; Pain 9/10; 21:45 BP 149 / 96; Pulse 93; Resp 18; Pulse Ox 97% ; al5 22:00 BP 128 / 81; Pulse 91; Resp 16; Pulse Ox 95% ; al5 22:30 BP 137 / 85; Pulse 91; Resp 16; Pulse Ox 94% ; al5 23:00 BP 146 / 81; Pulse 86; Resp 17; Pulse Ox 94% ; al5 23:30 BP 121 / 79; Pulse 88; Resp 15; Pulse Ox 95% ; al5 12/24 00:00 BP 126 / 76; Pulse 89; Resp 17; Pulse Ox 94% ; al5 00:30 BP 120 / 70; Pulse 89; Resp 15; Pulse Ox 95% ; al5 01:00 BP 131 / 80; Pulse 98; Resp 14; Pulse Ox 96% ; al5 01:30 BP 131 / 73; Pulse 89; Resp 19; Pulse Ox 96% ; al5 02:00 BP 103 / 67; Pulse 89; Resp 19; Pulse Ox 97% ; al5 02:30 BP 105 / 59; Pulse 84; Resp 18; Pulse Ox 95% ; al5 12/23 21:25 Body Mass Index 46.20 (133.81 kg, 170.18 cm) cm10 12/23 21:25 Pain Scale: Adult cm10 Ileana Coma Score: 21:35 Eye Response: spontaneous(4). Motor Response: obeys commands(6). Verbal Response: sp4 oriented(5). Total: 15. ED Course: 12/23 20:51 Patient arrived in ED. gm2 20:51 Lulu Soto is Private Physician. gm2 20:58 Jose Angel House MD is Attending Physician. sp4 21:26 Triage completed. cm10 21:27 Arm band placed on right wrist. Patient placed in an exam room, on a stretcher. cm10 21:37 Karen Coleman, GÓMEZ is Primary Nurse. al5 21:56 No provider procedures requiring assistance completed. Inserted saline lock: 20 gauge al5 in right forearm, using aseptic technique. Blood collected. Flushed with 10 mL NS. 21:57 Patient has correct armband on for positive identification. Bed in low position. Call al5 light in reach. Side rails up X2. Provided Education on: plan of care. 22:13 Foot Left 3 View XRAY In Process Unspecified. EDMS 12/24 01:14 Quincy Pena MD is Hospitalizing Provider. sp4 01:50 Wound care: to diabetic foot wound located on ball of left foot was cleaned with al5 Hibiclens, Patient tolerated well. 02:17 Patient admitted, IV remains in place. al5 Administered Medications: 12/23 22:16 Drug: Meropenem IV 1 grams IV at calculated rate once; (mix in NS 100 mL) Route: IV; al5 Rate: calculated rate; Site: right forearm; 22:48 Follow up: Response: No adverse reaction; IV Status: Completed infusion; IV Intake: al5 100ml 22:16 Drug: morphine IVP or IV 6 mg IVP once over 4 mins Route: IVP; Infused Over: 4 mins; al5 Site: right forearm; 22:49 Follow up: Response: No adverse reaction; Pain is decreased al5 22:16 Drug: Methocarbamol PO 1500 mg PO once Route: PO; al5 22:48 Follow up: Response: No adverse reaction; Pain is decreased al5 22:17 Drug: Ondansetron IVP 4 mg IVP once; over 2 minutes Route: IVP; Site: right forearm; al5 22:49 Follow up: Response: No adverse reaction al5 12/24 01:36 Drug: Insulin Regular Human IVP 10 units IVP once {Co-Signature: al5 (Karen Coleman vc1 RN).} Route: IVP; Site: right forearm; 02:18 Follow up: Response: No adverse reaction al5 01:38 Drug: morphine IVP or IV 4 mg IVP once over 4 mins Route: IVP; Infused Over: 4 mins; al5 Site: right forearm; 02:18 Follow up: Response: No adverse reaction; Pain is decreased al5 Medication: 12/23 21:57 VIS not applicable for this client. al5 Intake: 22:48 IV: 100ml; Total: 100ml. al5 Outcome: 12/24 01:15 Decision to Hospitalize by Provider. sp4 03:25 Admitted to Med/surg accompanied by tech, via stretcher, room 414, with chart, al5 03:25 Condition: stable 03:25 Instructed on the need for admit, 03:26 Patient left the ED. al5 Signatures: Dispatcher [employer] EDMS Teresa Canales RN RN vc1 Jose Angel House MD MD sp4 Maddie Wesley RN RN cm10 Regla Robledo 2 Karen Coleman RN RN al5 Karen Coleman RN al5
--- NOTE | 2024-12-24 01:15 | EDPHYS ---
Physician Documentation [facility] Name: Addy Quintana Jr Age: 44 yrs Sex: Male : 1980 Arrival Date: 12/23/2024 Time: 20:48 Bed 13 Private MD: Lulu Soto ED Physician Jose Angel House HPI: 12/23 20:58 This 44 yrs old Male presents to ER via Unassigned with complaints of Foot sp4 Pain. 12/24 21:35 44-year-old male presents with infected left plantar foot diabetic ulcer associated sp4 with left foot pain and redness.. Historical: - Allergies: 12/23 21:26 VANCOMYCIN AND DERIVATIVES; cm10 - PMHx: 21:26 DVT; Diabetes - IDDM; Hypercholesterolemia; Hypertension; neuropathy; cm10 - PSHx: 21:26 Dion knee sx; RIGHT MIDDLE TOE AMPUTATION; cm10 - Immunization history:: Adult Immunizations up to date. - Infectious Disease History:: Denies. - Social history:: Smoking status: unknown. - Family history:: not pertinent. ROS: 12/24 21:35 Constitutional: Negative for fever, chills, and weight loss, positive for left foot sp4 redness and left foot infected diabetic ulcer All other systems are negative, Exam: 21:35 Constitutional: This is a well developed, well nourished patient who is awake, alert, sp4 and in no acute distress. Head/Face: Normocephalic, atraumatic. Eyes: Pupils equal round and reactive to light, extra-ocular motions intact. Lids and lashes normal. Conjunctiva and sclera are not injected. Cornea within normal limits. Periorbital areas with no swelling, redness, or edema. ENT: Nares patent. No nasal discharge, no septal abnormalities noted. Tympanic membranes are normal and external auditory canals are clear. Oropharynx with no redness, swelling, or masses, exudates, or evidence of obstruction, uvula midline. Mucous membranes moist. Neck: Trachea midline, no thyromegaly or masses palpated, and no cervical lymphadenopathy. Supple, full range of motion without nuchal rigidity, or vertebral point tenderness. Chest/axilla: Normal chest wall appearance and motion. Nontender with no deformity. No lesions are appreciated. Cardiovascular: Regular rate and rhythm with a normal S1 and S2. No gallops, murmurs, or rubs. Normal PMI, no JVD. No pulse deficits. Respiratory: Lungs have equal breath sounds bilaterally, clear to auscultation and percussion. No rales, rhonchi or wheezes noted. No increased work of breathing, no retractions or nasal flaring. Abdomen/GI: Soft, with normal bowel sounds. No distension or tympany. No guarding or rebound. No evidence of tenderness throughout. Back: No spinal tenderness. No costovertebral tenderness. Skin: Warm, dry with normal turgor. Normal color with no rashes, no lesions, and no evidence of cellulitis. MS/ Extremity: Pulses equal, no cyanosis. Neurovascular intact. Full, normal range of motion. Left foot redness and swelling, left plantar diabetic foot ulcer at the base of the left great toe. Diabetic foot ulcer appears infected with drainage of purulent debris. Neuro: Awake and alert, GCS 15, oriented to person, place, time, and situation. Cranial nerves II-XII grossly intact. Motor strength 5/5 in all extremities. Sensory grossly intact. Psych: Awake, alert, with orientation to person, place and time. Behavior, mood, and affect are within normal limits Vital Signs: 12/23 21:25 BP 134 / 78; Pulse 94; Resp 18; Temp 97.8(O); Pulse Ox 97% on R/A; Weight 133.81 kg; cm10 Height 5 ft. 7 in. ; Pain 9/10; 21:45 BP 149 / 96; Pulse 93; Resp 18; Pulse Ox 97% ; al5 22:00 BP 128 / 81; Pulse 91; Resp 16; Pulse Ox 95% ; al5 22:30 BP 137 / 85; Pulse 91; Resp 16; Pulse Ox 94% ; al5 23:00 BP 146 / 81; Pulse 86; Resp 17; Pulse Ox 94% ; al5 23:30 BP 121 / 79; Pulse 88; Resp 15; Pulse Ox 95% ; al5 12/24 00:00 BP 126 / 76; Pulse 89; Resp 17; Pulse Ox 94% ; al5 00:30 BP 120 / 70; Pulse 89; Resp 15; Pulse Ox 95% ; al5 01:00 BP 131 / 80; Pulse 98; Resp 14; Pulse Ox 96% ; al5 01:30 BP 131 / 73; Pulse 89; Resp 19; Pulse Ox 96% ; al5 02:00 BP 103 / 67; Pulse 89; Resp 19; Pulse Ox 97% ; al5 02:30 BP 105 / 59; Pulse 84; Resp 18; Pulse Ox 95% ; al5 12/23 21:25 Body Mass Index 46.20 (133.81 kg, 170.18 cm) cm10 12/23 21:25 Pain Scale: Adult cm10 Ileana Coma Score: 21:35 Eye Response: spontaneous(4). Motor Response: obeys commands(6). Verbal Response: sp4 oriented(5). Total: 15. MDM: 12/23 22:16 Medical Screening Exam initiated sp4 12/24 21:35 Differential diagnosis: fracture, sprain, foreign body, penetrating trauma, arthritis, sp4 gout, cellulitis. Data reviewed: vital signs, nurses notes, lab test result(s), radiologic studies, plain films. Consideration of Admission/Observation Patient was admitted/placed on observation. Escalation of care including admission/observation considered. Management of patient was discussed with the following: Hospitalist: Jean. ED course: Stable for admission . 12/23 21:30 Order name: Basic Metabolic Panel; Complete Time: 01: 4 12/23 21:30 Order name: CBC with Diff; Complete Time: : 4 12/23 21:30 Order name: LFT's; Complete Time: 01: sp4 12/23 21:30 Order name: NT PRO-BNP; Complete Time: 01:10 4 12/23 21:30 Order name: PT-INR; Complete Time: 01:10 4 12/23 21:30 Order name: Troponin HS; Complete Time: 01:10 sp4 12/23 21:31 Order name: Blood Culture Adult (2) 4 12/23 21:31 Order name: CRP; Complete Time: 01:10 sp4 12/23 21:31 Order name: Hemoglobin A1c 4 12/23 21:51 Order name: Lactate w/ 2H reflex if indic.; Complete Time: 01:10 al5 12/24 02:03 Order name: Urinalysis w/ reflexes EDMS 12/24 02:03 Order name: CBC with Automated Diff EDMS 12/24 02:03 Order name: CBC with Automated Diff EDMS 12/24 02:03 Order name: Comprehensive Metabolic Panel EDMS 12/24 02:03 Order name: Comprehensive Metabolic Panel EDRI 12/23 21:30 Order name: Foot Left 3 View XRAY; Complete Time: 01:10 sp4 12/24 02:03 Order name: CONS Physician Consult EDRI 12/23 21:30 Order name: IV Saline Lock; Complete Time: 21:56 sp4 12/23 21:30 Order name: Labs collected and sent; Complete Time: 21:56 sp4 12/23 21:30 Order name: O2 Per Protocol; Complete Time: 21:56 sp4 12/23 21:30 Order name: O2 Sat Monitoring; Complete Time: 21:56 sp4 Administered Medications: 12/23 22:16 Drug: Meropenem IV 1 grams IV at calculated rate once; (mix in NS 100 mL) Route: IV; al5 Rate: calculated rate; Site: right forearm; 22:48 Follow up: Response: No adverse reaction; IV Status: Completed infusion; IV Intake: al5 100ml 22:16 Drug: morphine IVP or IV 6 mg IVP once over 4 mins Route: IVP; Infused Over: 4 mins; al5 Site: right forearm; 22:49 Follow up: Response: No adverse reaction; Pain is decreased al5 22:16 Drug: Methocarbamol PO 1500 mg PO once Route: PO; al5 22:48 Follow up: Response: No adverse reaction; Pain is decreased al5 22:17 Drug: Ondansetron IVP 4 mg IVP once; over 2 minutes Route: IVP; Site: right forearm; al5 22:49 Follow up: Response: No adverse reaction al5 12/24 01:36 Drug: Insulin Regular Human IVP 10 units IVP once {Co-Signature: al5 (Karen Coleman vc1 RN).} Route: IVP; Site: right forearm; 02:18 Follow up: Response: No adverse reaction al5 01:38 Drug: morphine IVP or IV 4 mg IVP once over 4 mins Route: IVP; Infused Over: 4 mins; al5 Site: right forearm; 02:18 Follow up: Response: No adverse reaction; Pain is decreased al5 Disposition: 12/25 01:23 Chart complete. sp4 Disposition Summary: 12/24/24 01:15 Hospitalization Ordered Notes: Hospitalization Status: Inpatient Admission sp4 Provider: Quincy Pena4 Location: Telemetry/MedSurg (Inpatient) sp4 Condition: Stable sp4 Problem: new sp4 Symptoms: have improved sp4 Bed/Room Type: Standard sp4 Room Assignment: 414(12/24/24 02:54) rv1 Diagnosis - Left foot infected diabetic ulcer, left foot cellulitis, uncontrolled diabetes sp4 Forms: - Medication Reconciliation Form sp4 - SBAR form sp4 - Leadership Thank You Letter sp4 Signatures: Dispatcher [employer] EDMS Liz Doan, RN RN kl CalcoteTeresa RN RN vc1 Carine Wetzel rv1 Jose Angel House MD MD sp4 Maddie Wesley RN RN cm10 Karen Coleman RN RN al5 Karen Coleman RN al5 Corrections: (The following items were deleted from the chart) 12/23 21:31 21:31 BASIC METABOLIC PANEL+C.LAB.BRZ ordered. EDMS EDMS 21:31 21:31 CBC+H.LAB.BRZ ordered. EDMS EDMS 21:31 21:31 HEPATIC FUNCTION+C.LAB.BRZ ordered. EDMS EDMS 21:31 21:31 PROBNP+C.LAB.BRZ ordered. EDMS EDMS 21:31 21:31 PROTIME (+INR)+COAG.LAB.BRZ ordered. EDMS EDMS 21:31 21:31 Troponin High Sensitivity+C.LAB.BRZ ordered. EDMS EDMS 21:51 21:51 LACTATE+C.LAB.BRZ ordered. EDMS EDMS 12/24 02:12 01:15 sp4 kl 02:54 02:12 413 kl rv1
[2024-12-24] MEDS ORDERED: MORPHINE 4 MG/ML SYR ONE (01:33)
[2024-12-24] MEDS ORDERED: INSULIN REGULAR (HUMAN) 100 UNIT/ML ONE (01:33)
[2024-12-24] MEDS ORDERED: ONDANSETRON 4 MG/2 ML VIAL IV PRN (01:58)
[2024-12-24] MEDS ORDERED: ACETAMINOPHEN 325 MG TABLET PO PRN (01:58)
--- NOTE | 2024-12-24 01:58 | P.HP ---
Certification for Inpatient Patient admitted to: Inpatient With expected LOS: >2 Midnights Practitioner: I am a practitioner with admitting privileges, knowledge of patient current condition, hospital course, and medical plan of care. Services: Services provided to patient in accordance with Admission requirements found in Title 42 Section 412.3 of the Code of Federal Regulations Patient History Date of Service: 12/24/24 Reason for admission: Diabetic Foot History of Present Illness: 44 yrs old Male with past medical history of hypertension, hyperlipidemia, diabetes, DVT, neuropathy, peripheral artery disease status post right middle toe amputation and was brought to ER with pain and swelling and wound on left foot. Started having pain and swelling 3 days ago and has been progressively getting worse. No fever or chills. No nausea vomiting or diarrhea. Patient was assessed in the ER and is admitted for further management of diabetic foot and surgical consult Allergies vancomycin Allergy (Severe, Verified 02/12/24 14:42) Hives/Rash Home medications list reviewed: Yes Home Medications: Alcohol Antiseptic Pads [Alcohol Swabs] 1 each TP TID #100 ea 02/09/24 Amlodipine [Norvasc*] 10 mg PO DAILY #30 tab 02/09/24 Blood Sugar Diagnostic [Blood Glucose Test Strip] 1 each MC TID #30 strip 02/09/24 Blood-Glucose Meter [Blood Glucose Monitoring] 1 each MC TID #1 kit 02/09/24 Gabapentin 600 mg PO BID #60 tab 02/09/24 Hydrocodone 10/APAP 325 [Hemphill 10/325*] 1 tab PO Q4H PRN #20 tab 02/09/24 Lancets [Comfort Touch Ult Thin Lancet] 1 each MC TID #100 ea 02/09/24 Pen Needle, Diabetic [Insulin Pen Needle] 1 dis.ndl MC TID #100 dis.ndl 02/09/24 allopurinoL [Zyloprim*] 300 mg PO BEDTIME #30 tab 02/09/24 Ciprofloxacin HCl 500 mg PO BID 10 Days #20 tab 08/03/24 Doxycycline Hyclate 100 mg PO BID 10 Days #20 tab 08/03/24 Insulin NPH Hum/Reg Insulin Hm [Novolin 70-30 Flexpen] 20 unit SQ BID #5 pe 08/03/24 - Past Medical/Surgical History Diabetic: Yes Past Medical History: Reviewed- Non-Contributory -: Diabetes -: diabetic ulcers -: neuropathy -: sleep apnea -: DVT R leg -: vericose veins -: lymphedema -: rhabdomyolysis -: HTN Past Surgical History: Reviewed- Non-Contributory -: jarvis lower leg surgery: broke and straightened -: debridement bilat great toes -: BLE vein surgery -: tonsillectomy Psychosocial/ Personal History: Patient lives at home. - Family History Family History: Reviewed- Non-Contributory - Family History Father -: Diabetes Mother -: Diabetes Notes: hyotension - Social History Smoking Status: Never smoker Alcohol use: Yes CD- Drugs: No Caffeine use: Yes Review of Systems 10-point ROS is otherwise unremarkable Physical Examination - Vital Signs Temperature: 97.6 F Blood Pressure: 142/68 Pulse: 82 Respirations: 18 Pulse Ox (%): 94 - Physical Exam General: Alert, In no apparent distress, Oriented x3, Obese HEENT: Atraumatic, Normocephalic Neck: Supple Respiratory: Clear to auscultation bilaterally, Normal air movement Cardiovascular: Regular rate/rhythm, Normal S1 S2 Capillary refill: <2 Seconds Gastrointestinal: Soft and benign, W/out hepatosplenomegaly Musculoskeletal: No clubbing, Swelling Integumentary: No rashes, Tenderness/swelling, Erythema, Warmth Neurological: Normal speech, Normal strength at 5/5 x4 extr, Cranial nerves 3-12 intact, Normal reflexes 2+ Lymphatics: No axilla or inguinal lymphadenopathy - Studies Laboratory Data (last 24 hrs) 12/23/24 12/23/24 12/23/24 21:49 21:49 21:49 WBC 6.80 Hgb 13.2 L Hct 38.6 L Plt Count 225 PT 12.4 INR 1.09 Sodium 133 L Potassium 3.7 BUN 20 H Creatinine 0.85 Glucose 468 H* Total Bilirubin 0.4 AST 13 L ALT 27 Alkaline Phosphatase 102 Assessment and Plan - Plan Diabetic foot Uncontrolled diabetes with hyperglycemia History of peripheral vascular disease Neuropathy Pain control Started on IV antibiotic Surgical consult Monitor closely Wound care CRP elevated Hypertension Antihypertensives titrated Continue home medications and titrate as needed Hyperlipidemia Continue statin Diabetes Insulin sliding scale Accu-Chek before every meal and at bedtime GI/DVT prophylaxis Advanced directive full code Discharge Plan: Home Plan to discharge in: 48 Hours - Advance Directives Does patient have a Living Will: No Does patient have a Durable POA for Healthcare: No - Code Status/Comfort Care Code Status: Full Code Time Spent Managing Pts Care (In Minutes): 54
[2024-12-24] MEDS ORDERED: GLUCAGON 1 MG/VIAL IM PRN (03:18)
[2024-12-24] MEDS ORDERED: D10W 125 ML IV PRN (03:18)
[2024-12-24 03:40] VITALS: BMI 46.2
[2024-12-24] MEDS: NA CHLORIDE 0.9% 1,000 ML IV SCH (03:48)
[2024-12-24] MEDS: MORPHINE 2 MG/ML SYR IV PRN (06:13)
[2024-12-24] MEDS: INSULIN REGULAR (HUMAN) 100 UNIT/ML SQ SCH (06:21)
[2024-12-24] MEDS: DOXYCYCLINE 100 MG CAP PO SCH (08:58)
[2024-12-24] MEDS: CEFTRIAXONE 2,000 MG in NA CHLORIDE 0.9% 100 ML IV SCH (08:58)
[2024-12-24] MEDS: ENOXAPARIN 40 MG/0.4 ML SQ SCH (08:59)
[2024-12-24] MEDS: POTASSIUM CL SA 10 MEQ TAB PO ONE (08:59)
[2024-12-24 09:28] LABS: Specific Gravity > 1.030 (1.005-1.030); Urine Bilirubin NEGATIVE (Negative); Urine Blood Negative (Negative); Urine Clarity Clear (Clear); Urine Color Light-Yellow (Yellow); Urine Glucose 4+ (Over) (Negative); Urine Ketones 1+ (Negative); Urine Microscopic Reflex YN NO UMIC; Urine Nitrite NEGATIVE (Negative); Urine Protein NEGATIVE (Negative); Urine Urobilinogen 1+ (Normal)
[2024-12-24] MEDS: HYDROCODONE/APAP 5/325 MG TAB PO PRN (12:30)
[2024-12-24] MEDS ORDERED: D50W 25 GM/50 ML SYRINGE IV PRN (17:09)
--- NOTE | 2024-12-24 17:09 | P.PN ---
Date of Service: 12/24/24 Patient seen and examined. He is complaining of pain in his left leg wound. No recorded fever. Patient has chronic ulcer-plantar aspect of left great toe. X-ray shows no bony involvement. General surgery Dr. Craig-evaluated patient and recommending debridement. IV antibiotics Analgesics as needed. Blood sugar control-insulin sliding scale, start Novolin 70/30.
[2024-12-24] MEDS: INSULIN 70/30 100 UNITS/ML SQ SCH (18:06)
[2024-12-25 06:36] LABS: Absolute Eosinophils 0.1 K/uL (0-0.5); Absolute Lymphocytes (CBC) 2.1 K/uL (0.7-4.9); Absolute Monocytes 0.4 K/uL (0.1-1.3); Absolute Neutrophil 2.2 K/uL (1.8-8.0); Basophils % 0.4 % (0-1.3); Eosinophils % 1.8 % (0-4.4); Lymphocytes % 43.6 % (15.3-44.8); MCHC 34.1 g/dL (32.0-36.0); MCV 87.9 fL (80-100); MPV 8.7 fL (7.6-11.3); Monocytes % 9.1 % (3.3-12.3); Neutrophils % 45.1 % (41.7-73.7); Nucleated Red Blood Cells % 0.1 % (0-0); Platelets 202 thou/uL (152-406); RBC Red Blood Cell Count 4.33 M/uL (4.33-5.43); Red Cell Distribution Width 13.8 % (12.1-15.2)
[2024-12-25 06:44] LABS: Albumin 2.5 g/dL (3.4-5.0); Albumin/Globulin Ratio 0.6 (1.1-1.8); Anion Gap 5.8 mEq/L (5.0-15.0); Bilirubin Total 0.3 mg/dL (0.2-1.0); Globulin 4.1 g/dL (2.3-3.5); Magnesium 1.6 mg/dL (1.6-2.4); Phosphorus 2.2 mg/dL (2.5-4.9); Potassium 3.8 mEq/L (3.5-5.1); Protein, Total 6.6 g/dL (6.4-8.2)
[2024-12-25] MEDS: MAGNESIUM SULFATE 1 gm IVPB 1 GM/100 ML BAG IV ONE (08:06)
[2024-12-25] MEDS: POTASSIUM PHOS IN 0.9 % NACL 15 MMOL/250 ML BAG IV ONE (09:00)
[2024-12-25] MEDS: LIDOCAINE HCL/EPINEPHRINE 20 ML MDV ONE (14:24)
[2024-12-25] MEDS ORDERED: FENTANYL CITR 100 MCG/2 ML ONE (15:01)
[2024-12-25] MEDS ORDERED: propofoL 200 MG/20 ML VIAL IV ONE (15:01)
[2024-12-25] MEDS ORDERED: ONDANSETRON 4 MG/2 ML VIAL ONE (15:01)
[2024-12-25] MEDS ORDERED: MIDAZOLAM HCL 2 MG/2 ML INJ ONE (15:01)
[2024-12-25] MEDS ORDERED: LIDOCAINE 2% MPF 5 ML VIAL ONE (15:01)
[2024-12-25] MEDS ORDERED: EPHEDRINE SULF 50 MG/ML VIAL ONE (16:28)
--- NOTE | 2024-12-25 16:48 | P.OP ---
Preoperative diagnosis: LEFT Great Toe Chronic Diabetic Wound Postoperative diagnosis: LEFT Great Toe Chronic Diabetic Wound Primary procedure: Debridement of LEFT Great Toe Chronic Diabetic Wound Anesthesia: GETA + Local Estimated blood loss: <1cc Specimen: Debridement Tissue Findings: Stage II, LEFT Great Toe Chronic Diabetic Wound ~ 4cm x 3cm Complications: None Transferred to: Recovery Room Condition: Good
[2024-12-25] MEDS: NA CHLORIDE 0.9% 1,000 ML ONE (16:58)
--- NOTE | 2024-12-25 17:12 | OP ---
Date of Procedure: 12/25/2024 Surgeon: Hugh Nair MD, Preoperative Diagnosis: Left great toe chronic diabetic wound. Postoperative Diagnosis: Left great toe chronic diabetic wound. Procedure Performed: Debridement of left great toe chronic diabetic wound. Anesthesia: General endotracheal with local with 1% lidocaine with epinephrine. Estimated Blood Loss: Less than 1 cc. Specimen: Debrided tissue. Findings: Stage II left great toe chronic diabetic wound approximately 4 cm and 30 cm, stage II, and depth. Complications: None. The patient transferred to recovery room in good condition. Procedure In Detail: After informed consent was obtained, patient was brought to the operating room, prepped and draped in the usual sterile fashion. After adequate anesthesia achieved, using a combin ation sharp dissection to remove excoriated, enlarged eschar of unusual appearing skin adjacent to an d involving the great toe on the left side. This tissue was sent off for pathologic examination. Th e open diabetic toe wound was debrided using a combination of scissors, forceps, sharp debridement, f ollowed by curette. After all nonviable tissue was removed and good healthy tissue was achieved, the area was copiously irrigated multiple times completely clear and sterile dressing placed over top. The patient tolerated the procedure without incident or complication and transferred to PACU in good condition. All counts correct at the end of the case. VITALIY/SUSANA Voice ID: [id number] Report ID: [id number]
[2024-12-25] MEDS: HYDROMORPHONE HCL 1 MG/ML INJ ONE ×2 (17:13→17:40)
[2024-12-25 17:27] VITALS: O2SAT 96
--- NOTE | 2024-12-25 18:13 | P.DS ---
Admission Date: 12/24/24 Discharge Date: 12/25/24 Disposition: ROUTINE DISCHARGE Discharge Condition: FAIR Reason for Admission: Diabetic Foot Brief History of Present Illness: 44 yrs old Male with past medical history of hypertension, hyperlipidemia, diabetes, DVT, neuropathy, peripheral artery disease status post right middle toe amputation and was brought to ER with pain and swelling and wound on left foot of 3 days duration. No fever or chills. No sepsis, no leukocytosis Patient was assessed in the ER and is admitted for further management of diabetic foot and surgical consult Hospital Course: Patient admitted to the medical floor, started on IV antibiotics. X-ray of the foot did not show any bony involvement. He was evaluated by general surgery Dr. Nair who performed sharp knife debridement and recommended wound care instructions and advised nonweightbearing on the left foot. Patient had no evidence of sepsis, no fever and no leukocytosis. Blood cultures yielded no growth. His blood sugar was managed with NPH insulin and insulin sliding scale. Patient prescribed with NPH insulin on discharge. He is prescribed refill for metformin as well as oral antibiotics. He is informed to follow-up with the wound care clinic. Vital Signs/Physical Exam: Temp Pulse Resp BP Pulse Ox 97 F 82 14 134/63 98 12/25/24 17:39 12/25/24 17:39 12/25/24 17:39 12/25/24 17:39 12/25/24 12:00 General: Alert, In no apparent distress, Oriented x3 HEENT: Mucous membr. moist/pink Neck: JVD not distended Respiratory: Clear to auscultation bilaterally, Normal air movement Cardiovascular: Regular rate/rhythm Gastrointestinal: Normal bowel sounds, Soft and benign, Non-distended Musculoskeletal: No swelling Neurological: Normal strength at 5/5 x4 extr Laboratory Data at Discharge: WBC 4.90 thou/uL (4.3-10.9) 12/25/24 05:43 Hgb 13.0 g/dL (13.6-17.9) L 12/25/24 05:43 Hct 38.0 % (39.6-49.0) L 12/25/24 05:43 Plt Count 202 thou/uL (152-406) 12/25/24 05:43 PT 12.4 SECONDS (10-13.0) 12/23/24 21:49 INR 1.09 12/23/24 21:49 Sodium 135 mEq/L (136-145) L 12/25/24 05:43 Potassium 3.8 mEq/L (3.5-5.1) 12/25/24 05:43 BUN 17 mg/dL (7-18) 12/25/24 05:43 Creatinine 0.54 mg/dL (0.70-1.30) L 12/25/24 05:43 Glucose 225 mg/dL (74-106) H 12/25/24 05:43 Phosphorus 2.2 mg/dL (2.5-4.9) L 12/25/24 05:43 Magnesium 1.6 mg/dL (1.6-2.4) 12/25/24 05:43 Total Bilirubin 0.3 mg/dL (0.2-1.0) 12/25/24 05:43 AST 12 U/L (15-37) L 12/25/24 05:43 ALT 22 U/L (16-61) 12/25/24 05:43 Alkaline Phosphatase 77 U/L (45-117) 12/25/24 05:43 Home Medications: Alcohol Antiseptic Pads [Alcohol Prep Pad] 1 each TP BID #100 ea 12/25/24 Amox/Clavulanate [Augmentin 875-125 Tab] 1 each PO BID #14 tab 12/25/24 Blood Sugar Diagnostic [Blood Glucose Test Strip] 1 each MC BID #60 strip 12/25/24 Blood-Glucose Meter [Blood Glucose Meter] 1 each MC BID #1 ea 12/25/24 Doxycycline Hyclate 100 mg PO BID #14 cap 12/25/24 Gabapentin 600 mg PO BID #60 tab 12/25/24 Hydrocodone 7.5/APAP 325 [Dorsey 7.5/325 mg] 1 tab PO Q6H PRN #20 tab 12/25/24 Insulin NPH Hum/Reg Insulin Hm [Novolin 70-30 Flexpen] 10 unit SQ BID #15 ml 12/25/24 Lancets 1 each MC BID #100 ea 12/25/24 Metformin HCl 1,000 mg PO BID #60 tab 12/25/24 Pen Needle, Diabetic [Pen Wolcott] 1 each MC BID #100 ea 12/25/24 allopurinoL [Zyloprim*] 300 mg PO BEDTIME #30 tab 12/25/24 New Medications: Alcohol Antiseptic Pads [Alcohol Prep Pad] 1 each TP BID #100 ea Amox/Clavulanate [Augmentin 875-125 Tab] 1 each PO BID #14 tab Blood-Glucose Meter [Blood Glucose Meter] 1 each MC BID #1 ea Blood Sugar Diagnostic [Blood Glucose Test Strip] 1 each MC BID #60 strip Doxycycline Hyclate 100 mg PO BID #14 cap Gabapentin 600 mg PO BID #60 tab Lancets 1 each MC BID #100 ea Metformin HCl 1,000 mg PO BID #60 tab Hydrocodone 7.5/APAP 325 [Dorsey 7.5/325 mg] 1 tab PO Q6H PRN #20 tab PRN Reason: Pain Insulin NPH Hum/Reg Insulin Hm [Novolin 70-30 Flexpen] 10 unit SQ BID #15 ml Pen Needle, Diabetic [Pen Wolcott] 1 each MC BID #100 ea allopurinoL [Zyloprim*] 300 mg PO BEDTIME #30 tab Physician Discharge Instructions: Please wear "Forefoot Offloading Post-Op Shoe - Non-Weight Bearing Medical Wedge" Wound care: Daily dressing changes: Remove all dressings, irrigate left great toe with sterile saline followed by damp to dry dressings with Vashe, wrap, elevate, nonweightbearing. Follow-up at the wound care clinic next week. Diet: ADA Activity: Non-weight bearing (Left foot.) Followup: SABRA SHETTY [Primary Care Provider] - Time spent managing pt's care (in minutes): 36
[2024-12-25 23:28] VITALS: BP 135/67; TEMP 97.9
== END 2024-12-25 22:00 | disposition home or self-care (01) | DRG 623 ==
LOC: ER 20:48 → ERHOLD 12-24 01:58 → 4TH 12-24 02:57
PROVIDERS: ADMIT Family Medicine; ATTEND Internal Medicine
PROC: 0JBR0ZZ Excision of Left Foot Subcutaneous Tissue and Fascia, Open Approach (ICD-10-PCS; principal; 2024-12-25 15:15)
DX: E11.621 Type 2 diabetes mellitus with foot ulcer (principal); L03.116 Cellulitis of left lower limb; Z68.42 Body mass index [BMI] 45.0-49.9, adult; E66.9 Obesity, unspecified; L97.529 Non-pressure chronic ulcer of other part of left foot with unspecified severity; E11.40 Type 2 diabetes mellitus with diabetic neuropathy, unspecified; E11.65 Type 2 diabetes mellitus with hyperglycemia; E11.51 Type 2 diabetes mellitus with diabetic peripheral angiopathy without gangrene; E78.00 Pure hypercholesterolemia, unspecified; I10 Essential (primary) hypertension; Z79.4 Long term (current) use of insulin; Z88.1 Allergy status to other antibiotic agents; Z79.84 Long term (current) use of oral hypoglycemic drugs; Z86.718 Personal history of other venous thrombosis and embolism; Z89.421 Acquired absence of other right toe(s); Z79.899 Other long term (current) drug therapy
CPT/HCPCS: 36415; 80048; 80053; 80076; 81003; 82947; 83605; 83735; 83880; 84100; 84484; 85025; 85610; 86140; 87040; 88304; 96365; 96375; 99285; J0696; J1171; J1650; J1815; J2003; J2185; J2250; J2270; J2405; J2704; J3010; J3475; J7030